=== PATIENT | male | born 1935 | race Caucasian/White ===

== ENCOUNTER 2018-09-23 07:59 | Outpatient (CLI) | payer MEDICARE, SELFPAY ==
[2018-09-23 09:39] LABS: Anion Gap 7.9 mmol/L (3-11); BUN 19 mg/dL (7-18); CO2 27.1 mmol/L (21.0-32.0); CREATININE 0.94 mg/dL (0.70-1.30); Calcium 8.8 mg/dL (8.5-10.1); Chloride 106 mmol/L (98-107); Glucose 96 mg/dL (70-100); Potassium 4.5 mmol/L (3.5-5.1); Sodium 141 mmol/L (136-145); Uric Acid 3.9 mg/dL (3.5-7.2)
[2018-09-26 09:29] LABS: PSA, Screening 0.6 ng/ml (0-6.5)
== END 2018-09-23 08:19 ==
PROVIDERS: PCP Family Medicine; Visit Provider Family Medicine
DX: M10.9 Gout, unspecified (principal); Z12.5 Encounter for screening for malignant neoplasm of prostate; M15.9 Polyosteoarthritis, unspecified
CPT/HCPCS: 36415; 80048; 84153; 84550

== ENCOUNTER 2018-09-28 01:29 | Outpatient (CLI) | payer MEDICARE, SELFPAY ==
--- NOTE | 2018-09-28 | PFT_ITS ---
PULMONARY FUNCTION TEST REPORT Patient - Pino Lanier DATE OF SERVICE September 28, 2018 REQUESTING PROVIDER Geovanni Irwin M.D. INTERPRETATION OF STUDY Spirometry shows no evidence of obstructive airways disease. No bronchodilator response. LUNG VOLUMES - Lung volumes show no evidence of restriction, though somewhat low FVC is due to very low ERV. This may be related to chest wall restriction from obesity or respiratory neuromuscular dysfunction. DIFFUSION CAPACITY- Mildly reduced, which is normal when corrected to alveolar volume. AIRWAY RESISTANCE - Normal. IMPRESSION Mild isolated diffusion defect, this is associated with somewhat low FVC and very low ERV. This may be related to underlying obesity and chest wall restriction, but underlying early developing interstitial lung disease should also be considered in the differential diagnosis. Other consideration is respiratory neuromuscular dysfunction. If respiratory neuromuscular weakness is suspected, proceeding with MVV, MEP and MIP maneuvers are recommended. Clinical correlation therefore recommended. Lucretia Shah M.D. SANDRA/ T- 09/30/2018
[2018-09-28] MEDS: Inhaler, Assist Device 1 EACH MC (08:47)
[2018-09-28] MEDS: Albuterol HFA 18 GM 200 PUFF INH IH (08:47)
== END 2018-09-28 01:49 ==
PROVIDERS: PCP Family Medicine; Visit Provider Family Medicine
DX: R05 Cough (principal); R06.09 Other forms of dyspnea; R06.02 Shortness of breath; R06.2 Wheezing; Z57.2 Occupational exposure to dust
CPT/HCPCS: 94060; 94150; 94726; 94729

== ENCOUNTER 2019-01-12 00:20 | Outpatient (CLI) | payer MEDICARE, SELFPAY ==
--- NOTE | 2019-01-12 12:19 | DI.US_ITS ---
EXAM: US HERNIA CLINICAL HISTORY: QUESTION OF HERNIA M79.89 SOFT TISSUE DISORDER, R52 PAIN TECHNIQUE: Ultrasound performed using standard protocol. COMPARISON: No exams were available for comparison FINDINGS: The left lower quadrant was scanned. No hernia, mass or fluid collection is seen. A normal appearing lymph node is noted in the left groi n region. IMPRESSION: No evidence a hernia.
== END 2019-01-12 00:40 ==
PROVIDERS: PCP Nurse Practitioner; Visit Provider Nurse Practitioner
DX: R10.32 Left lower quadrant pain (principal); R59.0 Localized enlarged lymph nodes; M79.89 Other specified soft tissue disorders
CPT/HCPCS: 76857

== ENCOUNTER 2019-10-12 20:26 | Outpatient (REF) | payer MEDICARE, SELFPAY ==
[2019-10-12 20:53] LABS: Calculated LDL 100 mg/dL (<100); Cholesterol 151 mg/dL (<200); HDL Cholesterol 37 mg/dL (40-60); Triglyceride 70 mg/dL (<150)
== END 2019-10-12 20:46 ==
LOC: LBN 20:26
PROVIDERS: PCP Nurse Practitioner; Visit Provider Nurse Practitioner
DX: E78.5 Hyperlipidemia, unspecified (principal)
CPT/HCPCS: 80061

== ENCOUNTER 2020-07-19 08:54 | Outpatient (CLI) | payer MEDICARE, SELFPAY ==
--- NOTE | 2020-07-19 09:15 | DI.RAD_ITS ---
EXAM: XR FOOT RT COMPLETE CLINICAL HISTORY: ankle foot pain swelling M79.673. TECHNIQUE: 2D digital imaging was performed. COMPARISON: No exams were available for comparison FINDINGS: BONES: No acute fracture is present. No bony destructive lesion is seen. Osteopenia. Small heel spu rs. JOINTS: No dislocation present. Mild degenerative changes intertarsal and tarsal metatarsal joints. SOFT TISSUE: Normal. IMPRESSION: Mild degenerative changes and heel spurs. DATA REPOSITORY: RADIATION DOSE DELIVERED:
--- NOTE | 2020-07-19 09:15 | DI.RAD_ITS ---
EXAM: XR ANKLE RT COMPLETE CLINICAL HISTORY: foot and ankle pain M25.579. TECHNIQUE: 2D digital imaging was performed. COMPARISON: CR LEFT FOOT COMPLETE from 11/12/2015 CR LEFT FOOT COMPLETE from 11/12/2015 FINDINGS: BONES: No acute fracture is present. No bony destructive lesion is seen. Small heel spurs. No fadumo r dome defect is seen. Mild hypertrophic changes at the distal fibular tibial joint. Mild degenerat kelly changes talonavicular and navicular cuneiform joints. JOINTS: The ankle mortise is normally aligned. SOFT TISSUE: Faint vascular calcifications. IMPRESSION: Degenerative changes and small heel spurs.. DATA REPOSITORY: RADIATION DOSE DELIVERED:
== END 2020-07-19 09:14 ==
PROVIDERS: PCP Nurse Practitioner; Visit Provider Nurse Practitioner
DX: M25.571 Pain in right ankle and joints of right foot (principal); M79.671 Pain in right foot; M19.071 Primary osteoarthritis, right ankle and foot; M77.31 Calcaneal spur, right foot
CPT/HCPCS: 73610; 73630

== ENCOUNTER 2020-10-18 03:14 | Outpatient (CLI) | payer MEDICARE, SELFPAY ==
[2020-10-18 09:01] LABS: Calculated LDL 91 mg/dL (<100); Cholesterol 138 mg/dL (<200); HDL Cholesterol 36 mg/dL (40-60); Triglyceride 58 mg/dL (<150)
[2020-10-21 09:21] LABS: PSA, Screening 0.8 ng/mL (0.0-6.5)
== END 2020-10-18 03:15 | disposition home or self-care (01) ==
LOC: LBO 03:14
PROVIDERS: PCP Nurse Practitioner; Visit Provider Nurse Practitioner
DX: E78.5 Hyperlipidemia, unspecified (principal); N40.0 Benign prostatic hyperplasia without lower urinary tract symptoms; Z12.5 Encounter for screening for malignant neoplasm of prostate
CPT/HCPCS: 36415; 80061; 84153

== ENCOUNTER 2021-08-19 15:03 | Outpatient (REF) | payer MEDICARE, SELFPAY ==
[2021-08-21 17:56] LABS: COVID-19 RT-PCR UVMMC Result Negative (Negative)
== END 2021-08-19 15:04 | disposition home or self-care (01) ==
LOC: LBN 15:03
PROVIDERS: PCP Nurse Practitioner; Visit Provider Nurse Practitioner
DX: Z20.822 Contact with and (suspected) exposure to COVID-19 (principal)
CPT/HCPCS: U0003

== ENCOUNTER 2021-08-28 12:40 | Outpatient (REF) | payer MEDICARE, SELFPAY ==
--- NOTE | 2021-08-28 12:00 | TONSIL_PTH ---
PATIENT: Pino Wong LOC: [facility] U#:[id number] AGE/SX: 86/M ROOM: RE08/28/[address]: Orlando Pena MD : 1935 BED: DIS: 08/28/2021 SPEC #: [id number] RECD: 08/28/21 17:04 STATUS: BIANCA MARTINES #: [id number] RUBY: 08/28/21 12:[address]: Orlando Pena DEPT: Surgical Specimen RECD BY: Ashlie Piper ENTERED: 08/28/21 17:04 SP TYPE: TONSIL OTHR DR: Amelia Gomes, PhD ELECTRIC SIGN ASSEMBLER Tissues: 1 - TONSIL BIOPSY Procedures: IMMUNOPEROXIDASE STAIN GROSS AND MICRO LEVEL 3 Comments: [id number]
== END 2021-08-28 12:41 | disposition home or self-care (01) ==
LOC: LBN 12:40
PROVIDERS: PCP Nurse Practitioner; Visit Provider Otolaryngology
DX: C09.9 Malignant neoplasm of tonsil, unspecified (principal)
CPT/HCPCS: 88305; 88304; 88361

== ENCOUNTER 2021-10-27 04:19 | Outpatient (CLI) | payer MEDICARE, SELFPAY ==
[2021-10-27 17:12] LABS: Anion Gap 7.4 mmol/L (3-11); BUN 19 mg/dL (7-18); CO2 26.6 mmol/L (21.0-32.0); CREATININE 1.4 mg/dL (0.70-1.30); Calcium 8.6 mg/dL (8.5-10.1); Calculated LDL 70 mg/dL (<100); Chloride 106 mmol/L (98-107); Cholesterol 148 mg/dL (<200); Estimated GFR 48.28 (mL/min/1.73m2); Glucose 111 mg/dL (74-106); HDL Cholesterol 33 mg/dL (40-60); Potassium 4.1 mmol/L (3.5-5.1); Sodium 140 mmol/L (136-145); Triglyceride 225 mg/dL (<150)
[2021-10-27 17:21] LABS: Uric Acid 3.4 mg/dL (3.5-7.2)
== END 2021-10-27 04:20 | disposition home or self-care (01) ==
LOC: LBO 04:20
PROVIDERS: PCP Nurse Practitioner; Visit Provider Nurse Practitioner
DX: E78.5 Hyperlipidemia, unspecified (principal); M10.9 Gout, unspecified; K90.0 Celiac disease; R06.09 Other forms of dyspnea
CPT/HCPCS: 36415; 80048; 80061; 84550

== ENCOUNTER 2021-12-22 02:28 | Outpatient (RCR) | payer MEDICARE, SELFPAY ==
[2021-12-04] MEDS: Normal Saline Flush 10 ML SYR IVP (12:23)
[2021-12-04 12:33] LABS: Abs Immature Grans 0.02 10^3/uL (0.0-0.06); Absolute Basophil Count 0.05 10^3/uL (0.0-0.2); Absolute Eosinophil Count 0.26 10^3/uL (0.0-0.7); Absolute Lymphocyte Count 1.65 10^3/uL (1.2-3.4); Absolute Monocyte Count 0.72 10^3/uL (0.1-0.8); Absolute Neutrophil Count 4.27 10^3/uL (1.2-6.7); Basophils % 0.7; Eosinophils % 3.7; HCT 43.4 % (40.0-50.0); HGB 14.2 g/dL (13.5-17.5); Immature Grans % 0.3; Lymphocytes % 23.7; MCH 30.9 pg (27.0-33.0); MCHC 32.7 % (32.0-36.0); MCV 94 fL (80-95); MPV 9.2 fL (8.0-11.0); Monocytes % 10.3; Neutrophils % 61.3; Platelet Count 233 10^3/uL (130-400); RDW 13.2 % (11.8-14.1); RDW-SD 46.3 fL; WBC 6.97 10^3/uL (4.4-10.8)
[2021-12-04 12:51] LABS: ALT 20 U/L (16-63); AST 18 U/L (15-37); Albumin 3.2 g/dL (3.4-5.0); Alkaline Phosphatase 59 U/L (46-116); Anion Gap 6.8 mmol/L (3-11); BUN 19 mg/dL (7-18); Bilirubin, Total 1.5 mg/dL (0.2-1.0); CO2 29.2 mmol/L (21.0-32.0); Calcium 8.8 mg/dL (8.5-10.1); Chloride 104 mmol/L (98-107); Estimated GFR 74.21 (mL/min/1.73m2); Glucose 144 mg/dL (74-106); Potassium 4.3 mmol/L (3.5-5.1); Sodium 140 mmol/L (136-145); Total Protein 7.2 g/dL (6.4-8.2)
[2021-12-08] MEDS: Normal Saline Flush 10 ML SYR IVP (14:26)
[2021-12-08] MEDS: Heparin 500 UNITS/5 ML SYRINGE IV (14:27)
[2021-12-08 14:36] LABS: Abs Immature Grans 0.01 10^3/uL (0.0-0.06); Absolute Basophil Count 0.03 10^3/uL (0.0-0.2); Absolute Eosinophil Count 0.35 10^3/uL (0.0-0.7); Absolute Lymphocyte Count 1.86 10^3/uL (1.2-3.4); Absolute Monocyte Count 0.62 10^3/uL (0.1-0.8); Absolute Neutrophil Count 3.04 10^3/uL (1.2-6.7); Basophils % 0.5; Eosinophils % 5.9; HCT 42.8 % (40.0-50.0); Immature Grans % 0.2; Lymphocytes % 31.5; MCH 30.8 pg (27.0-33.0); MCHC 32.7 % (32.0-36.0); MCV 94 fL (80-95); MPV 8.8 fL (8.0-11.0); Monocytes % 10.5; Neutrophils % 51.4; Platelet Count 216 10^3/uL (130-400); RBC 4.55 10^6/uL (4.36-5.78); RDW 13.1 % (11.8-14.1); RDW-SD 45.3 fL; WBC 5.91 10^3/uL (4.4-10.8)
[2021-12-08 15:02] LABS: ALT 15 U/L (16-63); AST 17 U/L (15-37); Albumin 3.4 g/dL (3.4-5.0); Alkaline Phosphatase 65 U/L (46-116); Anion Gap 5.6 mmol/L (3-11); BUN 17 mg/dL (7-18); Bilirubin, Direct 0.2 mg/dL (0.0-0.2); Bilirubin, Total 1.2 mg/dL (0.2-1.0); CO2 30.4 mmol/L (21.0-32.0); CREATININE 0.9 mg/dL (0.70-1.30); Chloride 103 mmol/L (98-107); Estimated GFR 84.22 (mL/min/1.73m2); Glucose 93 mg/dL (74-106); Potassium 4.1 mmol/L (3.5-5.1); Sodium 139 mmol/L (136-145); Total Protein 7.5 g/dL (6.4-8.2)
[2021-12-09 12:25] LABS: Magnesium 2.1 mg/dL (1.8-2.4)
[2021-12-15] MEDS: Heparin 500 UNITS/5 ML SYRINGE IV (13:20)
[2021-12-15] MEDS: Normal Saline Flush 10 ML SYR IVP (13:20)
[2021-12-15 13:26] LABS: Abs Immature Grans 0.02 10^3/uL (0.0-0.06); Absolute Basophil Count 0.02 10^3/uL (0.0-0.2); Absolute Eosinophil Count 0.23 10^3/uL (0.0-0.7); Absolute Lymphocyte Count 1.29 10^3/uL (1.2-3.4); Absolute Monocyte Count 0.64 10^3/uL (0.1-0.8); Absolute Neutrophil Count 4.95 10^3/uL (1.2-6.7); Basophils % 0.3; Eosinophils % 3.2; HGB 13.8 g/dL (13.5-17.5); Immature Grans % 0.3; MCH 31.2 pg (27.0-33.0); MCHC 32.9 % (32.0-36.0); MCV 95 fL (80-95); MPV 9.2 fL (8.0-11.0); Neutrophils % 69.2; Platelet Count 202 10^3/uL (130-400); RBC 4.43 10^6/uL (4.36-5.78); RDW-SD 45.4 fL; WBC 7.15 10^3/uL (4.4-10.8)
[2021-12-15 13:55] LABS: ALT 26 U/L (16-63); AST 16 U/L (15-37); Albumin 3.1 g/dL (3.4-5.0); Alkaline Phosphatase 67 U/L (46-116); Anion Gap 6.3 mmol/L (3-11); BUN 18 mg/dL (7-18); Bilirubin, Total 0.9 mg/dL (0.2-1.0); CO2 29.7 mmol/L (21.0-32.0); Calcium 8.5 mg/dL (8.5-10.1); Chloride 101 mmol/L (98-107); Estimated GFR 74.21 (mL/min/1.73m2); Glucose 175 mg/dL (74-106); Magnesium 1.8 mg/dL (1.8-2.4); Potassium 3.9 mmol/L (3.5-5.1); Sodium 137 mmol/L (136-145)
[2021-12-22] MEDS: Heparin 500 UNITS/5 ML SYRINGE IV (08:29)
[2021-12-22] MEDS: Normal Saline Flush 10 ML SYR IVP (08:29)
[2021-12-22 08:59] LABS: Abs Immature Grans 0.03 10^3/uL (0.0-0.06); Absolute Basophil Count 0.01 10^3/uL (0.0-0.2); Absolute Eosinophil Count 0.17 10^3/uL (0.0-0.7); Absolute Monocyte Count 0.67 10^3/uL (0.1-0.8); Basophils % 0.1; Eosinophils % 2.2; HCT 42.8 % (40.0-50.0); HGB 14.2 g/dL (13.5-17.5); Immature Grans % 0.4; Lymphocytes % 10.3; MCH 31.3 pg (27.0-33.0); MCHC 33.2 % (32.0-36.0); MCV 94 fL (80-95); MPV 8.9 fL (8.0-11.0); Monocytes % 8.6; Neutrophils % 78.4; Platelet Count 230 10^3/uL (130-400); RBC 4.54 10^6/uL (4.36-5.78); RDW 13.1 % (11.8-14.1); RDW-SD 44.9 fL; WBC 7.78 10^3/uL (4.4-10.8)
[2021-12-22 09:36] LABS: ALT 21 U/L (16-63); AST 13 U/L (15-37); Alkaline Phosphatase 62 U/L (46-116); Anion Gap 6.8 mmol/L (3-11); BUN 20 mg/dL (7-18); Bilirubin, Total 0.9 mg/dL (0.2-1.0); CO2 29.2 mmol/L (21.0-32.0); Chloride 100 mmol/L (98-107); Estimated GFR 74.21 (mL/min/1.73m2); Glucose 122 mg/dL (74-106); Magnesium 1.9 mg/dL (1.8-2.4); Potassium 4.4 mmol/L (3.5-5.1); Sodium 136 mmol/L (136-145); Total Protein 7.1 g/dL (6.4-8.2)
== END 2021-12-26 23:59 | disposition home or self-care (01) ==
LOC: INF 02:28
PROVIDERS: Internal Medicine Hematology & Oncology; Preventive Medicine Undersea and Hyperbaric Medicine; PCP Nurse Practitioner; Visit Provider Internal Medicine Hematology & Oncology
DX: C09.9 Malignant neoplasm of tonsil, unspecified (principal); Z45.2 Encounter for adjustment and management of vascular access device
CPT/HCPCS: 36591; 80053; 82248; 83735; 85025

== ENCOUNTER 2022-01-19 02:23 | Outpatient (RCR) | payer MEDICARE, SELFPAY ==
[2021-12-29] MEDS: Normal Saline Flush 10 ML SYR IVP (12:51)
[2021-12-29] MEDS: Heparin 500 UNITS/5 ML SYRINGE IV (12:51)
[2021-12-29 13:00] LABS: Abs Immature Grans 0.01 10^3/uL (0.0-0.06); Absolute Basophil Count 0.01 10^3/uL (0.0-0.2); Absolute Eosinophil Count 0.07 10^3/uL (0.0-0.7); Absolute Lymphocyte Count 0.66 10^3/uL (1.2-3.4); Absolute Monocyte Count 0.57 10^3/uL (0.1-0.8); Absolute Neutrophil Count 4.75 10^3/uL (1.2-6.7); Basophils % 0.2; Eosinophils % 1.2; HCT 40.4 % (40.0-50.0); HGB 13.3 g/dL (13.5-17.5); Immature Grans % 0.2; Lymphocytes % 10.9; MCH 30.9 pg (27.0-33.0); MCHC 32.9 % (32.0-36.0); MCV 94 fL (80-95); MPV 8.7 fL (8.0-11.0); Monocytes % 9.4; Neutrophils % 78.1; Platelet Count 195 10^3/uL (130-400); RDW 13.2 % (11.8-14.1); RDW-SD 44.6 fL; WBC 6.07 10^3/uL (4.4-10.8)
[2021-12-29 13:15] LABS: ALT 23 U/L (16-63); AST 15 U/L (15-37); Albumin 3.1 g/dL (3.4-5.0); Alkaline Phosphatase 59 U/L (46-116); Anion Gap 5.3 mmol/L (3-11); BUN 26 mg/dL (7-18); Bilirubin, Total 0.8 mg/dL (0.2-1.0); CO2 30.7 mmol/L (21.0-32.0); CREATININE 1.1 mg/dL (0.70-1.30); Calcium 8.9 mg/dL (8.5-10.1); Chloride 98 mmol/L (98-107); Estimated GFR 66.19 (mL/min/1.73m2); Glucose 158 mg/dL (74-106); Magnesium 2.1 mg/dL (1.8-2.4); Potassium 4.5 mmol/L (3.5-5.1); Sodium 134 mmol/L (136-145)
[2022-01-05 09:30] LABS: Abs Immature Grans 0.01 10^3/uL (0.0-0.06); Absolute Basophil Count 0.01 10^3/uL (0.0-0.2); Absolute Eosinophil Count 0.04 10^3/uL (0.0-0.7); Absolute Monocyte Count 0.46 10^3/uL (0.1-0.8); Absolute Neutrophil Count 2.88 10^3/uL (1.2-6.7); Basophils % 0.3; Eosinophils % 1.1; HCT 37.6 % (40.0-50.0); HGB 12.8 g/dL (13.5-17.5); Immature Grans % 0.3; Lymphocytes % 10.5; MCH 31.7 pg (27.0-33.0); MCV 93 fL (80-95); MPV 8.9 fL (8.0-11.0); Monocytes % 12.1; Neutrophils % 75.7; Platelet Count 145 10^3/uL (130-400); RBC 4.04 10^6/uL (4.36-5.78); RDW 13.2 % (11.8-14.1); RDW-SD 44.5 fL
[2022-01-05] MEDS: Normal Saline Flush 10 ML SYR IVP (09:30)
[2022-01-05] MEDS: Heparin 500 UNITS/5 ML SYRINGE IV (09:31)
[2022-01-05 09:44] LABS: ALT 29 U/L (16-63); AST 22 U/L (15-37); Alkaline Phosphatase 59 U/L (46-116); Anion Gap 7.2 mmol/L (3-11); BUN 18 mg/dL (7-18); Bilirubin, Total 0.7 mg/dL (0.2-1.0); CO2 29.8 mmol/L (21.0-32.0); CREATININE 0.9 mg/dL (0.70-1.30); Calcium 8.8 mg/dL (8.5-10.1); Chloride 98 mmol/L (98-107); Estimated GFR 84.22 (mL/min/1.73m2); Glucose 118 mg/dL (74-106); Magnesium 1.8 mg/dL (1.8-2.4); Potassium 4.2 mmol/L (3.5-5.1); Sodium 135 mmol/L (136-145)
[2022-01-12] MEDS: Heparin 500 UNITS/5 ML SYRINGE IV (08:45)
[2022-01-12] MEDS: Normal Saline Flush 10 ML SYR IVP (08:45)
[2022-01-12 08:50] LABS: Abs Immature Grans 0.01 10^3/uL (0.0-0.06); Absolute Basophil Count 0.01 10^3/uL (0.0-0.2); Absolute Eosinophil Count 0.02 10^3/uL (0.0-0.7); Absolute Lymphocyte Count 0.26 10^3/uL (1.2-3.4); Absolute Monocyte Count 0.31 10^3/uL (0.1-0.8); Absolute Neutrophil Count 1.56 10^3/uL (1.2-6.7); Basophils % 0.5; Eosinophils % 0.9; HCT 35.2 % (40.0-50.0); HGB 11.9 g/dL (13.5-17.5); Immature Grans % 0.5; MCH 31.3 pg (27.0-33.0); MCHC 33.8 % (32.0-36.0); MCV 93 fL (80-95); MPV 9.2 fL (8.0-11.0); Monocytes % 14.3; Neutrophils % 71.8; Platelet Count 114 10^3/uL (130-400); RDW 13.6 % (11.8-14.1); RDW-SD 44.1 fL; WBC 2.17 10^3/uL (4.4-10.8)
[2022-01-12 09:04] LABS: ALT 31 U/L (16-63); AST 20 U/L (15-37); Alkaline Phosphatase 56 U/L (46-116); Anion Gap 4.7 mmol/L (3-11); BUN 21 mg/dL (7-18); Bilirubin, Total 0.7 mg/dL (0.2-1.0); CO2 30.3 mmol/L (21.0-32.0); Calcium 8.8 mg/dL (8.5-10.1); Chloride 100 mmol/L (98-107); Estimated GFR 74.21 (mL/min/1.73m2); Glucose 131 mg/dL (74-106); Potassium 4.4 mmol/L (3.5-5.1); Sodium 135 mmol/L (136-145); Total Protein 6.9 g/dL (6.4-8.2)
[2022-01-13 09:54] LABS: Magnesium 1.8 mg/dL (1.8-2.4)
[2022-01-19] MEDS: Normal Saline Flush 10 ML SYR IVP (12:15)
[2022-01-19] MEDS: Heparin 500 UNITS/5 ML SYRINGE IV (12:15)
[2022-01-19 12:18] LABS: Absolute Basophil Count 0.01 10^3/uL (0.0-0.2); Absolute Eosinophil Count 0.02 10^3/uL (0.0-0.7); Absolute Lymphocyte Count 0.02 10^3/uL (1.2-3.4); Absolute Monocyte Count 0.65 10^3/uL (0.1-0.8); Absolute Neutrophil Count 1.26 10^3/uL (1.2-6.7); Basophils % 0.5; HCT 32.8 % (40.0-50.0); HGB 11.1 g/dL (13.5-17.5); MCH 31.6 pg (27.0-33.0); MCHC 33.8 % (32.0-36.0); MCV 93 fL (80-95); MPV 9.2 fL (8.0-11.0); Monocytes % 33.2; Neutrophils % 64.3; Platelet Count 129 10^3/uL (130-400); RBC 3.51 10^6/uL (4.36-5.78); RDW 14.2 % (11.8-14.1); RDW-SD 45.4 fL
[2022-01-19 12:29] LABS: WBC 1.96 10^3/uL (4.4-10.8)
[2022-01-19 12:34] LABS: Diff Comment Diff Reviewed; RBC Morphology Normal
[2022-01-19 12:36] LABS: ALT 28 U/L (16-63); AST 21 U/L (15-37); Albumin 2.9 g/dL (3.4-5.0); Alkaline Phosphatase 55 U/L (46-116); Anion Gap 4.8 mmol/L (3-11); BUN 23 mg/dL (7-18); Bilirubin, Total 0.7 mg/dL (0.2-1.0); CO2 29.2 mmol/L (21.0-32.0); Calcium 8.7 mg/dL (8.5-10.1); Chloride 100 mmol/L (98-107); Estimated GFR 74.21 (mL/min/1.73m2); Glucose 118 mg/dL (74-106); Magnesium 1.8 mg/dL (1.8-2.4); Potassium 4.1 mmol/L (3.5-5.1); Sodium 134 mmol/L (136-145); Total Protein 6.6 g/dL (6.4-8.2)
== END 2022-01-26 23:59 | disposition home or self-care (01) ==
LOC: INF 02:23
PROVIDERS: Internal Medicine Hematology & Oncology; Preventive Medicine Undersea and Hyperbaric Medicine; PCP Nurse Practitioner; Visit Provider Internal Medicine Hematology & Oncology
DX: C09.9 Malignant neoplasm of tonsil, unspecified (principal); Z45.2 Encounter for adjustment and management of vascular access device
CPT/HCPCS: 36591; 80053; 83735; 85025

== ENCOUNTER 2022-01-24 03:22 | Inpatient (IN) | payer MEDICARE, SELFPAY ==
[2022-01-24] VITALS (122 sets, daily range): BP systolic 127–183; BP diastolic 70–114; PULSE 83–146; RESP 0–60; TEMP 36.4–39; O2SAT 94–100
--- NOTE | 2022-01-24 03:45 | DI.CT_ITS ---
Exam(s) CT HEAD WO EXAM: CT HEAD WO CLINICAL HISTORY: altered mentation. TECHNIQUE: Imaging Protocol: Axial computed tomography images with coronal and sagittal reformatted images were created and reviewed COMPARISON: None. FINDINGS: The examination is limited due to patient motion artifact. Ventricles and Extra axial spaces: Normal in size and morphology for the patient's age. Hemorrhage: None. Cerebral parenchyma: No acute territorial infarct is identified. There are areas of decreased attenu ation in the white matter consistent with small vessel ischemic disease. Midline shift: None. Brainstem/Cerebellum: Normal. Calvarium: Normal. Visualized Paranasal sinuses/Mastoids: Clear. Soft Tissues: Unremarkable. IMPRESSION: No acute intracranial process. RADIATION DOSE DELIVERED: 878.43mGy.cm Total DLP DATA REPOSITORY: All CT scans at this facility are submitted to the National Radiology Data Registry (NRDR) Dose Index Registry (DIR) with the [employer] (ACR). RADIATION OPTIMIZATION: All CT scans at this facility use at least one of these dose optimization te chniques: automated exposure control; mA and/or kV adjustment per patient size (includes targeted exa ms where dose is matched to clinical indication); or iterative reconstruction.
--- OUTSIDE RECORDS SUMMARY | 2022-01-24 03:56 | XMS_ITS | Encounter Summary ---
:1935 Author Organization [facility] [place] [address] Care Team Providers Name Role Phone Mateocalvin Ameliamat Branch APRN Primary Care Provider [phone] Encounter Details Date Type Department Care Team Description 01/13/2022 Orders Only [facility]il [facility] Osorio alanis [place] [address] ONCOLOGY [phone] [place], [place] [address] (Wo rk) Social History Tobacco Use Types Packs/Day Years Used Date Never Smoker Smokeless Tobacco: Never Used Alcohol Use Standard Drinks/Week Comments Not Currently 0 (1 standard drink = 0.6 oz pure alcoho l) Financial Resource Strain Answer Date Recorded How hard is it for you to pay for the very basics like Not h giovana at all 10/30/2021 food, housing, medical care, and heating? Food Insecurity Answer Date Recorded Within the past 12 months, you worried that your food would Never true 10/30/2021 run out before you got money to buy more. Within the past 12 months, the food you bought just didn't N ever true 10/30/2021 last and you didn't have money to get more. Transportation Needs Answer Date Recorded In the past 12 months, has lack of transportation kept you f rom No 10/30/2021 medical appointments or from getting medications? In the past 12 months, has lack of transportation kept you f rom No 10/30/2021 meetings, work, or getting things needed for daily living? Housing Stability Answer Date Recorded In the last 12 months, was there a time when you were not ab le No 10/30/2021 to pay the mortgage or rent on time? In the last 12 months, how many places have you lived? 1 10/30/2021 In the last 12 months, was there a time when you did not hav e a No 10/30/[address] or slept in a long-term (including now)? Sex Assigned at Date Recorded Not on file documented as of this encounter Plan of Treatment Upcoming Encounters Date Type Specialty Care Team Description 01/26/2022 Infusion Hematology and Oncology 01/26/2022 Office Visit Hematology and Oncology Mirta Sy MD [facility] ONCOLOGY DEPT. [place], [place] [address] (Wo rk) 01/28/2022 Office Visit Radiation Oncology Chilango Michel MD [facility] RADIATION ONCOLO GY [place], [place] [address] (Wo rk) 01/29/2022 Infusion Hematology and Oncology 02/05/2022 Infusion Hematology and Oncology Scheduled Orders Name Type Priority Associated Diagnoses Order S chedule Magnesium Lab STAT Tonsil cancer Expected: 12/27 (Approximate), Expires: 2022 Magnesium Lab Routine Tonsil cancer Expected: 12/28, Expires: 01/13/2023 documented as of this encounter Visit Diagnoses Diagnosis Tonsil cancer Malignant neoplasm of tonsil documented in this encounter Care Teams Dry Kiln Loader Relationship Specialty Start Date End Date Amelia Gomes APRN PCP - General Family Medicine 10/17/[address] [place] [address] documented as of this encounter
--- OUTSIDE RECORDS SUMMARY | 2022-01-24 03:56 | XMS_ITS | Encounter Summary ---
:1935 Author Organization [facility] [place] [address] Care Team Providers Name Role Phone Amelia Gomes APRN Primary Care Provider [phone] Encounter Details Date Type Department Care Team Description 01/14/2022 [facility] Tonsil cancer [address] ONCOLOGY DEPT. [place], [place] [phone] Social History Tobacco Use Types Packs/Day Years [...] place to sleep or slept in a mcc (including now)? Sex Assigned at Date Recorded Not on file documented as of this encounter Plan of Treatment Upcoming Encounters Date Type Specialty Care Team Description 01/26/2022 Infusion Hematology and Oncology 01/26/2022 Office Visit Hematology and Oncology Mirta Sy MD [facility] ONCOLOGY DEPT. [place], [place] [address] (Wo rk) 01/28/2022 Office Visit Radiation Oncology Chilango Michel MD [facility] RADIATION ONCOLO [place], [place] [address] (Wo rk) 01/29/2022 Infusion Hematology and Oncology 02/05/2022 Infusion Hematology and Oncology documented as of this encounter Visit Diagnoses Diagnosis Tonsil cancer Malignant neoplasm of tonsil documented in this encounter Care Teams Dry Wall Finisher Relationship Specialty Start Date End Date Amelia Gomes APRN PCP - General Family Medicine 10/17/20 [facility] [address] [place] [address] documented as of this encounter
--- OUTSIDE RECORDS SUMMARY | 2022-01-24 03:56 | XMS_ITS | Encounter Summary ---
:1935 Author Organization [facility] [place] [address] Care Team Providers Name Role Phone MateoZaid simpsonAmeliamat Branch APRN Primary Care Provider [phone] Encounter Details Date Type Department Care Team Description 01/20/2022 Travel Social History Tobacco Use Types Packs/Day Years [...] place to sleep or slept in a intermediate (including now)? Sex Assigned at Date Recorded Not on file documented as of this encounter Plan of Treatment Upcoming Encounters Date Type Specialty Care Team Description 01/26/2022 Infusion Hematology and Oncology 01/26/2022 Office Visit Hematology and Oncology Mirta Sy MD [facility] DR ONCOLOGY DEPT. [place], [place] [address] (Wo rk) 01/28/2022 Office Visit Radiation Oncology Chilango Michel MD [facility] RADIATION ONCOLO [place], [place] [address] (Wo rk) 01/29/2022 Infusion Hematology and Oncology 02/05/2022 Infusion Hematology and Oncology documented as of this encounter Visit Diagnoses Not on filedocumented in this encounter Care Teams Asphalt Raker Relationship Specialty Start Date End Date Amelia Gomes APRN PCP - General Family Medicine 10/17/[address] [place] [address] documented as of this encounter
--- OUTSIDE RECORDS SUMMARY | 2022-01-24 03:56 | XMS_ITS | Encounter Summary ---
:1935 Author Organization [facility] [place] [address] Care Team Providers Name Role Phone MateoZaid simpsonAmeliamat Branch APRN Primary Care Provider [phone] Reason for Visit Reason Comments IV Medication Hydration Treatment/Therapy Plan Authorization (Routine) - Authorized Specialty Diagnoses / Procedures Referred By Contact Refer red To Contact Hematology and Oncology Diagnoses Tonsil cancer History of kidney stones Gilbert's syndrome Kale Sy MD [facility] Hem Onc Infusion Procedures , [facility] [address] [facility] [place], [place] ONCOLOGY DEPT. [phone] [place] [address] Referral ID Status Reason Start Date Expiration Date Visits V isits Requested Authorized [id number] Authorized 12/08/2021 02/25/2022 99 99 Encounter Details Date Type Department Care Team Description 01/15/2022 Infusion Hematology Oncology at [facility] lbert's syndrome; [facility] Tonsil cancer; [address] [place] [address] History of kidney stones [place], [place] [phone] Social History Tobacco Use Types Packs/Day Years [...] place to sleep or slept in a ch[facility] (including now)? Sex Assigned at Date Recorded Not on file documented as of this encounter Last Filed Vital Signs Vital Sign Reading Time Taken Comments Blood Pressure 152/75 01/15/2022 8:35 AM EDT Pulse 86 01/15/2022 8:35 AM EDT Temperature 36.4 ??C (97.5 ??F) 01/15/2022 8:35 AM EDT Respiratory Rate 20 01/15/2022 8:35 AM EDT Oxygen Saturation 98% 01/15/2022 8:35 AM EDT Inhaled Oxygen Concentration - - Weight 84 kg (185 lb 3.2 oz) 01/15/2022 8:35 AM EDT Height - - Body Mass Index 27.34 01/13/2022 8:31 AM EDT documented in this encounter Progress Notes Sepideh Nelson RN - 01/15/2022 8:30 AM EDT INFUSION THERAPY ADMINISTRATION NOTES DIAGNOSIS: H/N CA REASON FOR VISIT: Hydration SUBJECTIVE Pino offers no complaints. OBJECTIVE LAB DATA: N/A REACTIONS (DESCRIPTION, TIME, INTERVENTION AND EFFECTIVENESS)none ASSESSMENT Pino was awake, alert and he tolerated treatment well. Pt's port checked for good blood return and patency before use. Port Flushed with 20 ML NS and 500 units Heparin then deaccessed PLAN Return to clinic per routine. documented in this encounter Plan of Treatment Upcoming Encounters Date Type Specialty Care Team Description 01/26/2022 Infusion Hematology and Oncology 01/26/2022 Office Visit Hematology and Oncology Mirta Sy MD [facility] DR ONCOLOGY DEPT. 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 History of kidney stones Personal history of urinary calculi documented in this encounter Administered Medications Inactive Administered Medications - up to 3 most recent administrations Medication Order MAR Action Action Date Dose Rate Site ondansetron (pf) (Zofran) (2 mg/mL) Given 01/15/2022 8:56 AM EDT 8 mg injection 8 mg 8 mg, Intravenous, ONCE, 1 dose, On Mickie 01/15/22 at 0900 sodium chloride 0.9% infusion New Bag 01/15/2022 8:52 AM EDT 1,000 mLs 500 mL/hr 1,000 mL (1 L), at 500 mL/hr, Intravenous, ONCE, 1 dose, On Mickie 01/15/22 at 0900, Administer over 2 hours documented in this encounter Care Teams Pharmacist Intern Relationship Specialty Start Date End Date Amelia Gomes APRN PCP - General Family Medicine 10/17/[address] [place] [address] [address] [place] [address] documented as of this encounter
--- OUTSIDE RECORDS SUMMARY | 2022-01-24 03:56 | XMS_ITS | Encounter Summary ---
:1935 Author Organization [place] [address] Care Team Providers Name Role Phone Amelia Gomes APRN Primary Care Provider [phone] Encounter Details Date Type Department Care Team Description 01/19/2022 Office Visit Hematology/Oncology Kale Sy, Reina otherapy- induced nausea; at [facility] Tonsil cancer [address] [place] [phone] ONCOLOGY DEPT. [phone] [place], [place] [address] Social History Tobacco Use Types Packs/Day Years [...] place to sleep or slept in a fdc (including now)? Sex Assigned at Date Recorded Not on file documented as of this encounter Last Filed Vital Signs Vital Sign Reading Time Taken Comments Blood Pressure 97/56 01/19/2022 12:50 PM EDT Pulse 109 01/19/2022 12:50 PM EDT Temperature 36.5 ??C (97.7 ??F) 01/19/2022 12:00 PM EDT Respiratory Rate 20 01/19/2022 12:00 PM EDT Oxygen Saturation 98% 01/19/2022 12:00 PM EDT Inhaled Oxygen Concentration - - Weight 83.5 kg (184 lb) 01/19/2022 12:00 PM EDT Height 175.3 cm (5' 9.02) 01/19/2022 12:00 PM EDT Body Mass Index 27.16 01/19/2022 12:00 PM EDT documented in this encounter Progress Notes Kale Sy MD - 01/19/2022 1:00 PM EDT Images from the original note were not included. Hematology/Oncology Clinic [facility] Patient Active Problem List Diagnosis ??? 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 Enrolled on NRG HN-[id number], arm 4: weekly cisplatin with concurrent radiation 70 Gy instituted 12/09/2021 ??? Dysphagia ??? Gilbert's syndrome ??? History of kidney stones Multiple urate stones Chronic allopurinol ??? S/P TKR (total knee replacement), bilateral ??? Hypercholesterolemia ??? Actinic keratosis ??? Filiform wart ??? AK (actinic keratosis) ??? SK (seborrheic keratosis) ??? History of nonmelanoma skin cancer [facility]- [facility]. He is due for his final dose of concurrent chemotherapy tomorrow; final dose of radiation on 01/22. He has had a tough week. His pharyngeal pain has been increasing, just controllable with frequent doses of oxycodone. He meters these out depending on the time of day, 5 or 7.5 mg during the day, 10 mgat bedtime. He had trouble with some ing on higher doses, but this is improved with more con servative oxycodone use. We tried fentanyl transdermal few weeks ago but this was associated with significant unsteadiness on his feet, which resolved when the patch was discontinued. He is G-tube dependent, with very little liquid taken in by mouth. He has been rinsing his mouth with a spray bottle and tap water. He finds this better than the baking soda and salt solution, and as before dislikes the lidocaine mixture. Is grade 1 peripheral neuropathy has been stable. He denies increased tinnitus or hearing trouble. He is quite tired, KPS 80. He has noted more persistent nausea in the past week. He has been using ondansetron 8 mg regularly every 8 hours, and he and his wonder if he could take a higher dose or take it more frequently. He has a hypersensitive gag reflex, but on close questioning it does appear that the nausea is truly sy stemic nausea and not gagging-related. Bowels remain sluggish but he moves every other day or so with the help of MiraLAX. He has been using nystatin swish and swallow for candidiasis; he has trouble swishing this around the mouth and moves it about with the help of a toothbrush. Physical exam: He looks tired, but in no acute distress. Voice is well phonated and articulated Oral exam shows grade 3 mucositis with a sharp delineation across the soft palate. The right tonsil tumor is no longer visible I see no signs of persistent candidiasis. Neck has no palpable adenopathy. Skin in the radiation field shows diffuse grade 2 erythema. No desquamation. The lungs are clear Mediport is benign Cardiac exam is normal Abdomen is benign, no hepatosplenomegaly or masses. The G-tube site is clean Extremities are normal, no clubbing or cyanosis. No edema. Neurologic exam shows no focal deficits. Full sensory exam not repeated today. Cranial nerves normal. Labs: White count 1.96 with ANC 1260. Hemoglobin 11.1. Calcium 8.7, magnesium 1.8; hepatic enzymes normal. Bilirubin normal. Albumin 2.9. BUN 23, creatinine 1.0. 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 His toxicity is within the bounds of expected side effects. He has grade 2 peripheral neuropathy but this has not increased since we reduce the dose of cisplatin. His persistent nausea is more problematic. This is likely combination of chemotherapy effect, possibly brainstem radiation effect, possibly from the high level of narcotics. His elevated BUN suggests that dehydration may be playing a role as well. His ANC is low at 1260, which I believe is grade 2; chemotherapy is to be held for ANC less than 1200. Plan: 1. Proceed with tomorrow's dose of cisplatin, 30 mg per meter squared as before. 2. Continue full supportive care; I think he would benefit from daily visit for hydration and antiemetics. I have updated his therapy plan to include a liter of normal saline, 8 mg of IV ondansetron, and 5 mg of IV dexamethasone. 3. New prescription for ondansetron ODT 8 mg; may repeat every 6 hours PRN. 4. If nausea remains despite the above, we could add olanzapine although I would be hesitant due to the risk of sedation. 5. Continue nystatin through the end of treatment. Kale Sy MD, FACP narrow fabrics weaver Hematology/Oncology Section [facility]/[address] [address] Voice recognition software used for this note; please excuse head filter tank tender helper errors. I personally reviewed past medical, surgical, family medical histories, reviewed current medications, vital signs, labs, and performed full review of systems. These are documented below the narrative for clarity and succinctness. Outpatient Medications Marked as Taking for the 01/19/22 encounter (Office Visit) with Jamal Sy MD Medication Sig Dispense Refill ??? oxyCODONE (Roxicodone) 5 mg/5 mL Solution Take 7.5 mLs by mouth every 4 hours as needed for Pain. May increase to 10 mg every 4 hours if necessary. 500 mL 0 ??? nystatin (Mycostatin) 100,000 unit/mL Suspension Take 5 mLs by mouth 4 times daily. Swish in mouth for as long as possible. Swallow if tolerable. 473 mL 0 ??? ondansetron ODT (Zofran-ODT) 8 mg Tablet, Rapid Dissolve Take 1 tablet by mouth every 8 hours asneeded for Nausea. Dissolve in mouth or dissolve in water and instill through G-tube 20 tablet 0 ??? polyethylene glycoL (Miralax) 17 gram/dose Powder Take 17 g by mouth daily. ??? emollient combination no.111 (REMEDY PHYTOPLEX MOISTURIZER TOP) Apply topically. Apply to area of radiation twice a day but no less than 2 hours before a treatment. Review of Systems: Review of systems is negative for other CHANNEL MARKETING SPECIALIST, bone, pulmonary, cardiac, GI, , extremity, neurologic, endocrine, skin, constitutional, emotional, or functional problems. Vitals Flowsheet Row Office Visit from 01/19/2022 in Hematology/Oncology at [facility] Weight 83.5 kg (184 lb) Height 175.3 cm (5' 9.02) BSA (Calculated - sq m) 2.02 sq meters BMI (Calculated) 27.16 Temp 36.5 ??C (97.7 ??F) Heart Rate 109 Resp 20 BP 97/56 Patient Position Standing SpO2 98 % Karnofsky Score 70 Body surface area is 2.02 meters squared. Wt Readings from Last 3 Encounters: 01/19/22 83.5 kg (184 lb) 01/16/22 84 kg (185 lb 3 oz) 01/15/22 84 kg (185 lb 3.2 oz) No results found for this or any previous visit (from the past 72 hour(s)). ++++++++++++++++++++++++++++++++++++++++++++++++++++ documented in this encounter Plan of Treatment Upcoming Encounters Date Type Specialty Care Team Description 01/26/2022 Infusion Hematology and Oncology 01/26/2022 Office Visit Hematology and Oncology Mirta Sy MD [facility] ONCOLOGY DEPT. [place], [place] [address] (Wo rk) 01/28/2022 Office Visit Radiation Oncology Chilango Michel MD [facility] RADIATION ONCOLO GY [place], [place] [address] (Wo rk) 01/29/2022 Infusion Hematology and Oncology 02/05/2022 Infusion Hematology and Oncology documented as of this encounter Visit Diagnoses Diagnosis Chemotherapy-induced nausea Nausea alone Tonsil cancer Malignant neoplasm of tonsil documented in this encounter Care Teams Remarketing Rep Relationship Specialty Start Date End Date Amelia Gomes APRN PCP - General Family Medicine 10/17/20 [address] [facility] [place] [address] documented as of this encounter
--- OUTSIDE RECORDS SUMMARY | 2022-01-24 03:56 | XMS_ITS | Encounter Summary ---
:1935 Author Organization [facility] [place] [address] Care Team Providers Name Role Phone Amelia Gomes APRN Primary Care Provider [phone] Encounter Details Date Type Department Care Team Description 01/15/2022 Notes [facility] OFFICE OF CARE [address] [place] [address] MANAGEMENT [place], [place] [phone] Social History Tobacco Use Types Packs/Day Years [...] place to sleep or slept in a senior living (including now)? Sex Assigned at Date Recorded Not on file documented as of this encounter Progress Notes Lizette Benson MSW - 01/15/2022 9:46 AM EDT Follow up with Pino during his infusion visit. He indicated he has one more week of RT treatments. He was warned it would get challenging. He is managing day to day at home. He feels his is holding up okay. They would have been in [place] by now as they have wintered there the last 10 years. Friends from their park call regularly and check in. He hopes to get down to [place] at some point this winter. Offered support. Pino did not identify any new needs today. Reminded him of ASSOCIATE DEAN availability. Will continue to follow as indicated. Brief assessment Supportive Counseling documented in this encounter Plan of Treatment Upcoming Encounters Date Type Specialty Care Team Description 01/26/2022 Infusion Hematology and Oncology 01/26/2022 Office Visit Hematology and Oncology Mirta Sy MD [facility] ONCOLOGY DEPT. [place], [place] [address] (Wo rk) 01/28/2022 Office Visit Radiation Oncology Chilango Michel MD [facility] RADIATION ONCOLO [place], [place] [address] (Wo rk) 01/29/2022 Infusion Hematology and Oncology 02/05/2022 Infusion Hematology and Oncology documented as of this encounter Visit Diagnoses Not on filedocumented in this encounter Care Teams Manager Business Relationship Specialty Start Date End Date Amelia Gomes APRN PCP - General Family Medicine 10/17/[address] [place] [address] documented as of this encounter
--- OUTSIDE RECORDS SUMMARY | 2022-01-24 03:56 | XMS_ITS | Encounter Summary ---
:1935 Author Organization [facility] [place] [address] Care Team Providers Name Role Phone MateoHayde simpsonleonarda Branch APRN Primary Care Provider [phone] Encounter Details Date Type Department Care Team Description 01/21/2022 [facility] [address] [phone] Social History Tobacco Use Types [...] place to sleep or slept in a snf (including now)? 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 Randomized to weekly low dose cisplatin SUBJECTIVE Pino Wong presented to hem-onc clinic for hydration STUDY ASSESSMENTS COMPLETED Patient assessed concurrently with Dr Sy: Patient states he's not feeling so good. Increased nausea with some vomiting. He is not eating anything be mouth now. Only sips of water Pain is managed by oxycone 10 mg liquid every 4 hours in G-tube. No longer using fentayl patch whichmade him too loopy.. He c/o dryness in mouth . He had stopped the saltwater baking soda rinses and tried it once and feltit didn't help. He tried the canola oil remedy advised by Dr Sy and said it just made his mouth oily. Instead he is using the spray bottle to spray water in his mouth often . This is helpful. The bought a humidifier. He states this is helpful. He continues to stay away from the BMX because the taste gags him and he didn feel it helped. Dr Sy assessed oral cavity and states thrush infection is improving and instructed him to continuing using this medicaiton . He reports some thick secretions, but denies having difficulty in expectoration or spitting it out. He reports constipation is controlled with Miralax via feeding tube. is helping him with this. He is having BM about QOD. He reports gums are bleeding when he brushes. He still using a soft manual tooth brush when he brushes. He said the tender gums also are painful times. He denies coughing up blood. He is spitting bloodfrom his gums. He is reporting some mild itchiness of skin to neck relieved by the cream we supply. He has some redness ,with mild dry desquamation relieved by the Phytoplex moisturizing cream we provide. Denying pain. He was given 2 more tubes. He will see Dr Michel in 2 more days.. States he has numbness in right hand . This goes away when he moves it . He denies left hand dumbness. This in the same He states he has some chronic bilateral numbness in his feet, this is unchanged from last week.. He was able to walk short distance in exam for weight. room. Able to stand for orthostatic BPs. He also saw Gris our Mission Planner today. PREVIOUS CYCLE SUPPLIES & MEDICATION COLLECTED ??? n/a MEDICATION DISPENSED n/a SUPPLIES DISPENSED ??? n/a Unsolicited AE/SIDE EFFECT MONITORING # AE Grade (CTCAE v. ) Start date Stop Date Study Related Intervention/Outcome 1 dysgeusia 1 2 2 2 2 12/15/21 12/25/21 01/05/22 01/12/22 01/19/22 Is affecting his appetite. Swallowing only water. Now( 01/12/22) 2 constipation 1 1 1 1 12/14/21 01/05/22 01/12/22 01/19/22 Intermittent Relieved by miralax 3 Increased oral mucous, secretions 1 1 1 1 1 12/15/21 12/22/21 01/05/22 01/12/22 01/19/22 He states this is same, not worse 4 Platelets low 1 1 01/12/22 01/19/22 01/12/22 plts 114 01/19/22 plts 129 5 albumin 1 2 01/12/22 01/19/22 01/12/22 albumin 3.0 01/19/22 albumin 2.9 6 hyponatremia 1 1 01/12/22 01/19/22 01/12/22 Sodium 135 01/19/22 sodium 134 7 WBC decreased 3 01/19/22 01/19/22 WBC 1.96 << solicited AEs >> 1 anemia 0 1 1 1 01/05/22 01/12/22 01/19/22 01/05/22 hgb 12.8 01/12/22 hgb 11.9 01/19/22 hgb 11.1 2 Ear pain 0 3 Hearing impairment 0 0 4 Middle ear inflammation 0 5 tinnitus 0 1 1 1 01/04/22 01/12/22 01/19/22 Comes and goes 6 vertigo 0 7 Vestibular disorder 0 8 Dry mouth 1 2 2 2 12/15/21 12/25/21 01/05/22 01/12/22 Using salt water/baking soda rinses 9 dysphagia 0 2 2 01/03/2212/172101/12/22 :Had phone appointment with COMBINER 10 Mucositis oral 1 2 2 3 12/25/21 01/05/22 01/12/22 01/19/22 Gums bleeding when brushing. c/o pain 11 Nausea 0 1 1 2 01/04/22 01/12/22 01/19/22 12 vomiting 0 1 1 2 01/04/22 01/12/22 01/19/22 13 fatigue 0 2 2 2 12/82101/12/22 01/19/22 14 pain 1 2 2 2 2 04/202112/25/21 01/05/22 01/12/22 01/19/22 Start oxycodone 5 mg Q 4hr PRN 12/26/21 01/12/22 increased to 10 mg PRN 15 Dermatitis radiation 1 1 1 1 12/26/21 01/05/22 01/12/22 01/19/22 moisturizing cream 16 ANC decreased 0 01/19/22 01/19/22 ANC 1.26 WNL 17 Weight loss 0 1 01/12/22 5% weight loss from starting weight 18 anorexia 1 2 2 12/25/21 01/03/22 01/12/22 19 dehydration 0 1 01/19/22 01/19/22 By evidence of orthostatic BPs 20 Peripheral sensory neuropathy 1 1 1 2 2 12/12/21 12/26/21 01/05/22 01/12/22 01/19/22 Right hand and some chronic bilateral feet Feet more numb. Same bilaterally. Chemo dose adjusted 01/12/22 21 Acute kidney injury 0 22 Pharyngeal mucositis 3 3 3 3 12/25/21 01/05/22 01/12/22 01/19/22 Take oxycodone PRN EDUCATION PROVIDED take Nystatin for thrush. swish and swallow if you can. . Added extra days of hydration and dexamethasone. See Dr Sy' Note. Pt instructed to call clinic with any questions or concerns. For weekend coverage while our clinic is closed, the patient and his were instructed to call [facility] at [phone] and ask for the television installer radiation or medical oncologist. They verbalized understanding. Surveys: None today . PLAN 1. Subject agrees to continue on study HN009 per protocol. Weekly chemo tomorrow & Daily radiation treatments . 2. Daily hydration this week. Last radiation treatment this 01/22/22 Patient verbalizes understanding of, and agreement with, plan. Advised to contact this office for any questions/concerns, as well as for any new or worsening symptoms. documented in this encounter Plan of Treatment Upcoming Encounters Date Type Specialty Care Team Description 01/26/2022 Infusion Hematology and Oncology 01/26/2022 Office Visit Hematology and Oncology Mirta Sy MD [facility] DR ONCOLOGY DEPT. [place], [place] [address] (Wo rk) 01/28/2022 Office Visit Radiation Oncology Chilango Michel MD [facility] RADIATION ONCOLO [place], [place] [address] (Wo rk) 01/29/2022 Infusion Hematology and Oncology 02/05/2022 Infusion Hematology and Oncology documented as of this encounter Visit Diagnoses Not on filedocumented in this encounter Care Teams Production Foreman Relationship Specialty Start Date End Date Amelia Gomes APRN PCP - General Family Medicine 10/17/[address] [place] [address] documented as of this encounter
--- OUTSIDE RECORDS SUMMARY | 2022-01-24 03:56 | XMS_ITS | Encounter Summary ---
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 [id number] [place] [address] Referral ID Status Reason Start Date Expiration Date Visits V isits Requested Authorized [id number] Authorized 12/08/2021 02/25/2022 99 99 Encounter Details Date Type Department Care Team Description 01/19/2022 Infusion Hematology Oncology at [facility] lbert's syndrome; [facility] Tonsil cancer; [address] [place] [address] History of kidney stones [place], [place] [phone] Social History Tobacco Use [...] documented as of this encounter Progress Notes Sepideh Michael RN - 01/19/2022 2:30 PM EDT INFUSION THERAPY ADMINISTRATION NOTES DIAGNOSIS: H/N CA REASON FOR VISIT: Hydration and antiemetics SUBJECTIVE Pino reports he had been having more nausea and could not take his compazine- new zofran ODT script sent in today. Medicated with Zofran 8mg IV and 5mg IV Dex with hydration today with some relief. OBJECTIVE LAB DATA: N/A REACTIONS (DESCRIPTION, TIME, INTERVENTION AND EFFECTIVENESS)none ASSESSMENT Pino was awake, alert and he tolerated treatment well. Pt's port checked for good blood return and patency before use. Port Flushed with 20 ML NS and 500 units Heparin then deaccessed. PLAN Return to clinic per routine. documented in this encounter Plan of Treatment Upcoming Encounters Date Type Specialty Care Team Description 01/26/2022 Infusion Hematology and Oncology 01/26/2022 Office Visit Hematology and Oncology Mirta Sy MD [facility] DR ONCOLOGY DEPT. [place], [place] [address] (Wo rk) 01/28/2022 Office Visit Radiation Oncology Chilango Michel MD [facility] RADIATION ONCOLO [place], [place] [address] (Wo rk) 01/29/2022 Infusion Hematology [...] MAR Action Action Date Dose Rate Site dexAMETHasone (Decadron) (10 mg/mL) Given 01/19/2022 2:37 PM EDT 5 mg injection 5 mg 5 mg, Intravenous, ONCE, 1 dose, On Wed01/19/22 at 1430 ondansetron (pf) (Zofran) (2 mg/mL) injection 8 Given 01/19/2022 2:37 PM EDT 8 mg mg 8 mg, Intravenous, ONCE, 1 dose, On Wed01/19/22 at 1430 sodium chloride 0.9% infusion New Bag 01/19/2022 2:22 PM EDT 1,000 mLs 500 mL/hr 1,000 mL, at 500 mL/hr, Intravenous, ONCE, 1 dose, On Wed01/19/22 at 1430, Administer over 2 hours documented in this encounter Care Teams Geographic Information System Analyst Relationship Specialty Start Date End Date Amelia Gomes APRN PCP - General Family Medicine 10/17/20 [address] [place] [address] documented as of this encounter
--- OUTSIDE RECORDS SUMMARY | 2022-01-24 03:56 | XMS_ITS | Clinical Summary ---
:1935 Author Organization [facility] [place] [address] Care Team Providers Name Role Phone Mateocalvin Amelia Branch APRN Primary Care Provider [phone] Allergies Active Allergy Reactions Severity Noted Date Comments Transparent Dressings Rash 11/17/2021 Pt had port placed 11/13/21, tegaderm remove d over site revealed skin b reak-down and blisters, Try s orbaview/ IV 3000 in future Medications Medication Sig Dispensed Refills Start Date End Date Status simvastatin (ZOCOR) 80 80MG, PO, Every 0 04/03/2009 Active mg tablet other day allopurinol (ZYLOPRIM) 300mg, PO, QAM 0 04/03/2009 Active 300 mg tablet fluticasone propionate by Each Nare 0 07/03/2019 Active (FLONASE) 50 route daily. mcg/actuation [place], Suspension SAW PALMETTO ORAL Take by mouth. 0 Active KRILL OIL ORAL Take by mouth. 0 Active acetaminophen (TYLENOL) Take 650 mg by 0 Active 650 mg Tablet Sustained mouth every 8 Release hours as needed for Pain. Do not exceed 6 tabs in 24 hours diclofenac (Voltaren) 1 Apply topically. 0 Active % Gel prochlorperazine Take 1 tablet by 30 tablet 3 12/08/2021 Active (Compazine) 10 mg Tablet mouth every 6 hours as needed for Nausea. Sodium Fluoride Place 5 mLs onto 56 g 12/08/2021 Active (DentaGel) 1.1 % teeth nightly. GelIndications: Tonsil cancer, Xerostomia due to radiotherapy emollient combination Apply topically. 0 Active no.111 (REMEDY PHYTOPLEX Apply to area of MOISTURIZER TOP) radiation twice a day but no less than 2 hours before a treatment. polyethylene glycoL Take 17 g by 0 Active (Miralax) 17 gram/dose mouth daily. Powder lidocaine (Xylocaine) 2 Patient to mix 100 mL 1 12/22/2021 Active % SolutionIndications: equal parts with Tonsil cancer OTC Maalox & Benadryl. Swallow 5 mls of mixture PRN for throat pain. No more than 8 doses per day' Additional Information Patient taking differently: Patient to mix equal parts with OTC Maalox & Benadryl. Swallow 5 mls of mixture PRN for throat pain. No more than 8 doses per day', Reported on 01/20/2022 ondansetron ODT (Zofran-ODT) 8 mg Take 1 tablet by 20 tablet 0 01/05/2022 Active Tablet, Rapid mouth every 8 hours DissolveIndications: Tonsil as needed for cancer, Chemotherapy-induced Nausea. Dissolve in nausea mouth or dissolve in water and instill through G-tube fentaNYL (Duragesic) 12 mcg/hr Change 1 patch on 5 patch 0 1 Active Patch 72 hr the skin every 3 days. nystatin (Mycostatin) 100,000 Take 5 mLs by mouth 473 mL 0 01/12/2022 Active unit/mL SuspensionIndications: 4 times daily. Swish Oral candidiasis in mouth for as long as possible. Swallow if tolerable. oxyCODONE (Roxicodone) 5 mg/5 mL Take 7.5 mLs by 500 mL 0 1 Active SolutionIndications: Tonsil mouth every 4 hours cancer as needed for Pain. May increase to 10 mg every 4 hours if necessary. ondansetron ODT (Zofran-ODT) 8 mg Take 1 tablet by 20 tablet 3 01/19/2022 Active Tablet, Rapid mouth every 6 hours DissolveIndications: as needed for Chemotherapy-induced nausea Nausea. 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 Hypercholesterolemia 10/30/2021 Actinic keratosis 12/23/2015 Filiform wart 12/23/2015 AK (actinic keratosis) 08/17/2012 SK (seborrheic keratosis) 08/17/2012 History of nonmelanoma skin cancer 08/17/2012 Overview: BCC- left helix Encounters Date Type Specialty Care Team Description 01/23/2022 Infusion Hematology and Gilbert's syn drome; Oncology Tonsil cancer; History of kidn ey stones 01/22/2022 Infusion Hematology and Gilbert's syn drome; Oncology Tonsil cancer; History of kidn ey stones 01/22/2022 Travel 01/21/2022 Office Visit Radiation Oncology Wili Barrow Tonsil cancer MD Parveen 01/21/2022 Infusion Hematology and Gilbert's syn drome; Oncology Tonsil cancer; History of kidn ey stones 01/21/2022 Notes Only Radiation Oncology Kaley Lee RN 01/20/2022 Infusion Hematology and Tonsil cancer Oncology 01/20/2022 Travel 01/19/2022 Infusion Hematology and Gilbert's syn drome; Oncology Tonsil cancer; History of kidn ey stones 01/19/2022 Office Visit Hematology and Gris Dawn Tonsevgeny canc er Oncology RD 01/19/2022 Office Visit Hematology and Kale Sy Chemotherapy -induced nausea; Oncology MD Marcie Tonsil cancer 01/19/2022 Notes Only Hematology and Kaley Lee RN 01/16/2022 Infusion Hematology and Gilbert's syn drome; Oncology Tonsil cancer; History of kidn ey stones 01/16/2022 Notes Only Hematology and Kaley Lee RN 01/16/2022 Orders Only Radiation Oncology Marito Michelil rafael Ward MD 01/15/2022 Infusion Hematology and Elias's syn drome; Oncology Tonsil cancer; History of kidn ey stones 01/15/2022 Notes Only Hematology and Lizette Benson, Oncology SKEIN WASHER 01/14/2022 Office Visit Radiation Oncology Marito Michel MD 01/14/2022 Orders Only Hematology and Kale Sy Tonsil cance r Oncology MD Marcie 01/13/2022 Infusion Hematology and Tonsil cancer Oncology 01/13/2022 External Results Pharmacy Kale Sy MD 01/13/2022 Orders Only Hematology and Bert Scanlon Tonsil cance r Oncology MD Mirta 01/12/2022 Office Visit Hematology and Gris Dawn, Tonsil canc er Oncology RD 01/12/2022 Office Visit Hematology and Kale Sy Tonsil cance r; Oncology MD Marcie Oral candidiasi s 01/12/2022 Unscheduled Encounter Hematology and Gris Dawn, To nsil cancer Oncology RD 01/12/2022 Notes Only Radiation Oncology Kaley Lee RN 01/09/2022 Infusion Hematology and Elias's syn drome; Oncology Tonsil cancer; History of kidn ey stones 01/07/2022 Office Visit Radiation Oncology Marito Michelil rafael Ward MD 01/07/2022 TH Visit (TeleHealth) Hematology and Downs, Bonnie Ton lauren cancer; Oncology C, 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 Dysphagia, unsp ecified type 01/06/2022 Infusion Hematology and Tonsil cancer Oncology 01/06/2022 Notes Only Hematology and Lizette Benson, Oncology SKEIN WASHER 01/06/2022 External Results Pharmacy Kale Sy MD 01/05/2022 Office Visit Hematology and Gris Dawn, Tonsil canc er Oncology RD 01/05/2022 Office Visit Hematology and Kale Sy Tonsevgeny cance r; Oncology MD Elias Jack'parveen syndr ome; Chemotherapy-in duced nausea 01/05/2022 Notes Only Radiation Oncology Kaley Lee RN 01/02/2022 Office Visit Hematology and Gris Dawn, Tonsil canc er Oncology RD 01/02/2022 Infusion Hematology and Gilbert's syn drome; Oncology Tonsil cancer; History of kidn ey stones 01/02/2022 Notes Only Hematology and Kaley Lee, RN 12/31/2021 Office Visit Radiation Oncology Marito Michel cancer MD Sylvia 12/30/2021 Infusion Hematology and Tonsil cancer Oncology 12/30/2021 Notes Only Hematology and Lizette Benson, Oncology SKEIN WASHER 12/29/2021 Office Visit Hematology and Gris Dawn, Tonsil canc er Oncology RD 12/29/2021 Office Visit Hematology and Kale Syil cance r Oncology MD Marcie 12/26/2021 Infusion Hematology and Gilbert's syn drome; Oncology Tonsil cancer; History of arlet brush 12/26/2021 Unscheduled Encounter Hematology and Kale Sy lauren cancer Oncology MD Marcie 12/26/2021 Notes Only Radiation Oncology Kaley Lee RN 12/24/2021 Office Visit Radiation Oncology Marito Michel MD 12/23/2021 Infusion Hematology and Gilbert's syn drome; Oncology Tonsil cancer; History of arlet brush 12/22/2021 Office Visit Hematology and Gris Dawn, Tonsil canc er Oncology RD 12/22/2021 Office Visit Hematology and Kale Sy Tonsil cance r Oncology MD Marcie 12/22/2021 Notes Only Radiation Oncology Kaley Lee RN 12/19/2021 Office Visit Hematology and Gris Dawn, Tonsil canc er Oncology RD 12/19/2021 Infusion Hematology and Gilbert's syn drome; Oncology Tonsil cancer; History of kidn ey stones 12/17/2021 Hospital Encounter Radiology Tab, Tonsil ca miriamer Janice Padilla APRN 12/17/2021 Office Visit Radiation Oncology Marito Michel cancer MD Sylvia 12/16/2021 Infusion Hematology and Tonsil cancer Oncology 12/16/2021 Notes Only Hematology and Lizette Benson, Oncology SKEIN WASHER 12/15/2021 Office Visit Hematology and Kale Sy cance r Oncology MD Marcie 12/15/2021 Orders Only Hematology and Kale Sy cance r Oncology MD Marcie 12/12/2021 Infusion Hematology and Gilbert's syn drome; Oncology Tonsil cancer; History of kidn ey stones 12/12/2021 Office Visit Hematology and Gris Dawn Tonsil cantran er Oncology RD 12/11/2021 Telephone Radiation Oncology Jose C Arita 12/10/2021 Office Visit Radiation Oncology Marito Michel MD 12/10/2021 Orders Only Hematology and Kale Sy Oncology MD Marcie 12/10/2021 Telephone Hematology and [place], Follow-up (S/ p Oncology Alexander Kamara RN chemotherapy ) 12/09/2021 Infusion Hematology and Tonsil cancer Oncology 12/09/2021 Notes Only Radiation Oncology Kaley Lee RN 12/09/2021 Orders Only Hematology and Kale Sy MD 12/08/2021 Office Visit Hematology and Kale Sy; Oncology MD Marcie 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 Orders Only Hematology and Kale Sy Oncology MD Marcie 12/03/2021 Orders Only Radiation Oncology Marito Michel MD 12/02/2021 Notes Only Radiation Oncology Kaley Lee RN 11/24/2021 Office Visit Hematology and Gris Dawn Tonsil cantran er Oncology RD 11/24/2021 Office Visit Hematology and Kale Sy MD 11/24/2021 Notes Only Hematology and Kale Sy MD 11/20/2021 Hospital Encounter Radiology Kale Sy MD (D-CANCELLED BY DEPARTMENT) 11/20/2021 Hospital Encounter Radiology Kale Sy MD 11/20/2021 Office Visit Radiation Oncology Marito Michel MD 11/20/2021 Ancillary Appointment Radiation Oncology Chilango Michel MD 11/18/2021 Orders Only Radiation Oncology Marito Michel MD 11/17/2021 Hospital Encounter Radiology Marito Michel MD 11/13/2021 Hospital Encounter Radiology Kale Sy Pre-op t liningKylee Jack MD Tonsil cancer 11/13/2021 Laboratory Lab Pre-op testing; Appointment Tonsil cancer 11/11/2021 Anesthesia Event Surgery Anne Marie Matute MD Eckhardt, Adam C, LITTLE 11/11/2021 Surgery Surgery Nguyen, LARYNGHILL, Jarett Lantigua MD MICROSCOPE, WIT H BIOPSY (WRVU 3. 55) 11/11/2021 Hospital Encounter General Surgery Nguyen, Tonsil cancer Jarett Lantigua MD 11/11/2021 Interpretation Only Radiology Unknown 11/05/2021 Hospital Encounter Radiology Kale Sy Tonsevgeny c ritu Jack MD 11/05/2021 Laboratory Lab Appointment 11/04/2021 Orders Only Radiation Oncology Marito Michelil cancer MD Sylvia 11/04/2021 Telephone Hematology and Madeleine Arevalo Oncology 10/30/2021 Office Visit Hematology and Kale Sy cance r; Oncology MD Marcie History of kidney stones Janice Barth APRN 10/30/2021 Orders Only Radiology Meera Sosa PA 10/30/2021 Patient Outreach Hematology and Allan, Oncology Flaca Ward RN 10/28/2021 Office Visit Dermatology Marcos, History of basa l cell carcinoma (BCC); Meghana Kirby MD Actinic kerat oses; Seborrheic davey toses; Lentigines; Multiple benign nevi 10/28/2021 Orders Only Maxillofacial Dejan Alas MD 10/27/2021 Transcribe Orders Primary Care Khorrami, Extraction of Gerda, DDS tooth needed from Last 3 Months Immunizations Name Administration Dates Next Due Influenza Vaccine, Whole 02/26/2006 Moderna Covid-19 (Accounts Receivable Assistant 100mcg) Vaccine 05/22/2020, 2020 Td, adult 07/04/2003 Social History Tobacco Use Types Packs/Day Years [...] place to sleep or slept in a custodial (including now)? Sex Assigned at Date Recorded Not on file Last Filed Vital Signs Vital Sign Reading Time Taken Comments Blood Pressure 131/78 01/23/2022 9:02 AM EDT Pulse 90 01/23/2022 9:02 AM EDT Temperature 36.5 ??C (97.7 ??F) 01/23/2022 9:02 AM EDT Respiratory Rate 16 01/23/2022 9:02 AM EDT Oxygen Saturation 99% 01/23/2022 9:02 AM EDT Inhaled Oxygen Concentration - - Weight 83.5 kg (184 lb) 01/23/2022 9:02 AM EDT Height 175.3 cm (5' 9.02) 01/22/2022 8:22 AM EDT Body Mass Index 27.16 01/22/2022 8:22 AM EDT Plan of Treatment Upcoming Encounters Date Type Specialty Care Team Description 01/26/2022 Infusion Hematology and Oncology 01/26/2022 Office Visit Hematology and Oncology Mirta Sy MD [facility]. [place], [place] [address] (Wo rk) 01/28/2022 Office Visit Radiation Oncology Chilango Michel MD [facility] RADIATION ONCOLO [place], [place] [address] (Wo rk) 01/29/2022 Infusion Hematology and Oncology 02/05/2022 Infusion Hematology and Oncology Health Maintenance Due Date Last Done Comments Tdap adult 1956 Zoster vaccine (1 of 2) 1987 Advance Directive 1992 Pneumoccocal Vaccine: 65+ (1 - PCV) 2002 Tetanus vaccine 07/03/2013 07/04/2003 Covid-19 Vaccine (3 - Booster for Moderna 07/17/20202020, 04/24/2020 series) Influenza (Flu) vaccine (1 of 1 - 11/27/2021 02/26/2006 Influenza standard series) Medical Devices Implanted Type Area Ict Account Manager Device Shelf Model / Identifier Expiration Serial / Date Lot Mediport-11/13/2021 Mediport Right: [employer] - [id number] / Implanted: Qty: 1 on 11/13/2021 by Dejan Sprague MD Chest [employer] IN [id number] / Wall [id number] Procedures Procedure Name Priority Date/Time Associated Comments Diagnosis LAB SCAN 01/19/2022 12:00 Results for this AM EDT procedure are i n the results section. LAB SCAN 01/15/2022 12:00 Results for this AM EDT procedure are i n the results section. LAB SCAN 01/14/2022 12:00 Results for this AM EDT procedure are i n the results section. CLINICAL TRIAL SCAN Routine 01/13/2022 CLINICAL TRIAL SCAN Routine 01/13/2022 LAB SCAN 01/12/2022 12:00 Results for this AM EDT procedure are i n the results section. LAB SCAN 01/12/2022 12:00 Results for this AM EDT procedure are i n the results section. LAB SCAN 01/08/2022 12:00 Results for this AM EDT procedure are i n the results section. CLINICAL TRIAL SCAN Routine 01/06/2022 LAB SCAN 01/06/2022 12:00 Results for this AM EDT procedure are i n the results section. CLINICAL TRIAL SCAN Routine 01/05/2022 LAB SCAN 01/05/2022 12:00 Results for this AM EDT procedure are i n the results section. LAB SCAN 01/05/2022 12:00 Results for this AM EDT procedure are i n the results section. LAB SCAN 01/05/2022 12:00 Results for this AM EDT procedure are i n the results section. ORDS - PROVIDER CARE 12/29/2021 12:00 Res ults for this SCAN AM EDT procedure are i n the results section. LAB SCAN 12/29/2021 12:00 Results for this AM EDT procedure are i n the results section. LAB SCAN 12/29/2021 12:00 Results for this AM EDT procedure are i n the results section. LAB SCAN 12/29/2021 12:00 Results for this AM EDT procedure are i n the results section. ORDS - PROVIDER CARE 12/23/2021 12:00 Res ults for this SCAN AM EDT procedure are i n the results section. LAB SCAN 12/23/2021 12:00 Results for this AM EDT procedure are i n the results section. AUDIOLOGY SCAN 12/22/2021 12:00 Results f or this AM EDT procedure are i n the results section. RECIST 1.1 Routine 12/17/2021 9:41 Tonsil cancer Results for this AM EDT procedure are i n the results section. ORDS - PROVIDER CARE 12/16/2021 12:00 Res ults for this SCAN AM EDT procedure are i n the results section. LAB SCAN 12/16/2021 12:00 Results for this AM EDT procedure are i n the results section. LAB SCAN 12/15/2021 12:00 Results for this AM EDT procedure are i n the results section. LAB SCAN 12/15/2021 12:00 Results for this AM EDT procedure are i n the results section. ORDS - PROVIDER CARE 12/09/2021 12:00 Res ults for this SCAN AM EDT procedure are i n the results section. LAB SCAN 12/08/2021 12:00 Results for this AM EDT procedure are i n the results section. LAB SCAN 12/08/2021 12:00 Results for this AM EDT procedure are i n the results section. LAB SCAN 12/08/2021 12:00 Results for this AM EDT procedure are i n the results section. LAB SCAN 12/04/2021 12:00 Results for this AM EDT procedure are i n the results section. IMPLANTABLE DEVICES 11/26/2021 12:00 Resu lts for this SCAN AM EDT procedure are i n the results section. CT RAD ONC NEURO INTERP Routine 11/20/2021 12:39 Malignant rome plasm Results for this ONLY PM EDT of overlapping procedure are in sites of tonsil the results section. MRI NECK WITH/WO Routine 11/17/2021 2:32 Tonsil cancer Results for this CONTRAST PM EDT procedure are i n the results section. IR G-TUBE PLACEMENT Routine 11/13/2021 11:38 Tonsil cancer Res ults for this AM EDT procedure are i n the results section. IR MEDIPORT PLACEMENT Routine 11/13/2021 11:38 Tonsil cancer R esults for this AM EDT procedure are i n the results section. HC PROTHROMBIN TIME STAT 11/13/2021 7:59 Pre-op testi ng Results for this AM EDT Tonsil cancer procedure are in the results section. HC HEMOGRAM STAT 11/13/2021 7:59 Pre-op testing Results for this AM EDT Tonsil cancer procedure are in the results section. FINE NEEDLE ASPIRATION Routine 11/11/2021 12:31 Tonsil cancer BIOPSY, INC US PM EDT GUIDANCE; FIRST LESION BIOPSY OF TONSIL Routine 11/11/2021 12:31 Tonsil cancer PM EDT NON-VULCANIZED FIBER UNIT OPERATOR FINAL REPORT Routine 11/11/2021 12:22 Res ults for this PM EDT procedure are i n the results section. CYTOPATHOLOGY Routine 11/11/2021 12:22 Results fo r this NON-GYNECOLOGICAL PM EDT procedure are in the results section. SPECIMEN TO PATHOLOGY Routine 11/11/2021 12:10 Re sults for this PM EDT procedure are i n the results section. SPECIMEN TO PATHOLOGY Routine 11/11/2021 11:53 Re sults for this AM EDT procedure are i n the results section. SPECIMEN TO PATHOLOGY Routine 11/11/2021 11:50 Re sults for this AM EDT procedure are i n the results section. SURGICAL PATHOLOGY Routine 11/11/2021 11:49 Resul ts for this REPORT AM EDT procedure are i n the results section. FINE NEEDLE ASPIRATION 11/11/2021 11:16 Tonsil cancer BIOPSY, INC US AM EDT GUIDANCE; FIRST LESION BIOPSY OF TONSIL (WRVU 11/11/2021 11:16 Tonsil cancer 7.69) AM EDT SURGICAL EXTRACTIONS 11/11/2021 11:16 Tonsil cancer REQUIRING ELEVATION OF AM EDT MUCOPERIOSTEAL FLAP AND REMOVAL OF BONE OR SECTION OF TOOTH (WRVU 1.09) LARYNGOSCOPY, 11/11/2021 11:16 Tonsil cancer MICROSCOPE, WITH BIOPSY AM EDT (WRVU 3.55) SURG EXTRAC REQUIR Routine 11/11/2021 9:20 Tonsil cancer ELEVAT MUCPERISTEAL AM EDT FLAP/RIP BONE/SECT TOOTH LARYNGOSCOPY, Routine 11/11/2021 9:20 Tonsil cancer MICROSCOPE, WITH BIOPSY AM EDT DH OR ENDOSCOPY Routine 11/11/2021 Results for this procedure are i n the results section. IR BIOPSY LYMPH NODE Routine 11/05/2021 11:08 Tonsil cancer Re sults for this (HEAD/NECK) AM EDT procedure are i n the results section. NON-VULCANIZED FIBER UNIT OPERATOR FINAL REPORT Routine 11/05/2021 10:50 Res ults for this AM EDT procedure are i n the results section. CYTOPATHOLOGY Routine 11/05/2021 9:49 Results for this NON-GYNECOLOGICAL AM EDT procedure are in the results section. from Last 3 Months Results SCAN DOC: LAB (01/19/2022 12:00 AM EDT)Only the most recent of21 resultswithin the time period is included. Narrative 01/19/2022 12:00 AM EDT This result has an attachment that is no t available. Ordered by an unspecified provider. Scanning Provider MEDIA MGR SCAN EXT ORDR/RSLT Scan Doc: Clinical Trial (01/13/2022)Only the most recent of4 resultswithin the time period is included. Narrative This result has an attachment that is no t available. Kale Sy MD MEDIA MGR SCAN EXT ORDR/RSLT SCAN DOC: ORDS - PROVIDER CARE (12/29/2021 12:00 AM EDT)Only the most recent of4 resultswithin the time period is included. Narrative 12/29/2021 12:00 AM EDT This result has an attachment that is no t available. Ordered by an unspecified provider. Scanning Provider MEDIA MGR SCAN EXT ORDR/RSLT SCAN DOC: AUDIOLOGY (12/22/2021 12:00 AM EDT) Narrative 12/22/2021 12:00 AM EDT This result has an attachment that is no t available. Ordered by an unspecified provider. Scanning Provider MEDIA MGR SCAN EXT ORDR/RSLT RECIST 1.1 (12/17/2021 9:41 AM EDT) Anatomical Region Laterality Modality Other Specimen (Source) Anatomical Location Collection Method / Collectio n Time Received Time / Laterality Volume Impressions 12/17/2021 10:42 AM EDT Indicator lymph nodes as detailed above. Thank you for letting us participate in the care of this patient. ??If you are a health care provider and have any questi ons regarding this report, please contact the number below. ??For patients who have questions please contact the health career services officer that requested your imaging first. ? Narrative 12/17/2021 10:42 AM EDT EXAMINATION: RECIST 1.1 CLINICAL HISTORY: confirm eligibility ?? for study TECHNIQUE: Radiation oncology planning CT scan neck performed with and without contrast. COMPARISON: Neck MRI 11/17/2021. FINDINGS: The following lymph node measurements ar e provided below: Right level 2A lymph node on series 8, i mage 104 measures 1.9 x 1.7 cm compared to 1.5-1.8 cm on series 7, image 23 of t he MRI dated 11/17/2021. Right level 2B node on series 8, image 1 04 measures 1.1 x 1.2 cm compared to 1.0 x 0.8 cm on series 7, image 24 MRI dated 11/17/2021. Right level 5B measures 1.3 x 1.1 cm com pared to 1.6 x 4 cm on series 7, image 30 on the previous MRI dated 11/17/2021. Procedure Note Kevin Quintanilla MD - 12/17/2021Formatti ng of this note might be different from the original. EXAMINATION: RECIST 1.1 CLINICAL HISTORY: confirm eligibility fo r study TECHNIQUE: Radiation oncology planning CT scan neck performed with and without contrast. COMPARISON: Neck MRI 11/17/2021. FINDINGS: The following lymph node measurements ar e provided below: Right level 2A lymph node on series 8, i mage 104 measures 1.9 x 1.7 cm compared to 1.5-1.8 cm on series 7, image 23 of t he MRI dated 11/17/2021. Right level 2B node on series 8, image 1 04 measures 1.1 x 1.2 cm compared to 1.0 x 0.8 cm on series 7, image 24 MRI dated 11/17/2021. Right level 5B measures 1.3 x 1.1 cm com pared to 1.6 x 4 cm on series 7, image 30 on the previous MRI dated 11/17/2021. IMPRESSION Indicator lymph nodes as detailed above. Thank you for letting us participate in the care of this patient. If you are a health care provider and have any questi ons regarding this report, please contact the number below. For patients w ho have questions please contact the health career services officer that requested your imaging first. Janice Barth APRN [facility] RESEARCH ORDERABLES SCAN DOC: IMPLANTABLE DEVICES (11/26/2021 12:00 AM EDT) Narrative 11/26/2021 12:00 AM EDT This result has an attachment that is no t available. Ordered by an unspecified provider. Scanning Provider MEDIA MGR SCAN EXT ORDR/RSLT CT Rad Onc Neuro Interp Only (11/20/2021 12:39 PM EDT) Anatomical Region Laterality Modality Head Computed Tomography Specimen (Source) Anatomical Location Collection Method / Collectio n Time Received Time / Laterality Volume Impressions 11/21/2021 8:38 AM EDT Examination performed for radiation planning purposes. Thank you for letting us participate in the care of this patient. ??If you are a health care provider and have any questi ons regarding this report, please contact the number below. ??For patients who have questions please contact the health career services officer that requested your imaging first. ? 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 COMPARISON: Neck MRI 11/17/2021. CT neck 10/09/2021. PET/CT scan 10/09/2021. FINDINGS: Right-sided tonsillar tumor wi th associated level right 2, 3 and 5 lymphadenopathy identified. The right le nicole 5 lymph node is significantly smaller when compared to the original CT scan. Equivocal left level 2A lymph node unchanged in size. Procedure Note Kevin Quintanilla MD - 11/21/2021Formatti ng of this note might be different from the original. 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 COMPARISON: Neck MRI 11/17/2021. CT neck 10/09/2021. PET/CT scan 10/09/2021. FINDINGS: Right-sided tonsillar tumor wi th associated level right 2, 3 and 5 lymphadenopathy identified. The right le nicole 5 lymph node is significantly smaller when compared to the original CT scan. Equivocal left level 2A lymph node unchanged in size. IMPRESSION Examination performed for radiation plan rima purposes. Thank you for letting us participate in the care of this patient. If you are a health care provider and have any questi ons regarding this report, please contact the number below. For patients w ho have questions please contact the health career services officer that requested your imaging first. Marito Michel MD IMG OUTSIDE INTERPRETATION O RDERABLES MRI Soft Tissue Neck wwo Contrast (11/17/2021 2:32 PM EDT) Anatomical Region Laterality Modality Neck Magnetic Resonance Specimen (Source) Anatomical Location Collection Method / Collectio n Time Received Time / Laterality Volume Impressions 11/18/2021 11:57 AM EDT 1. ??Right tonsillar mass, 2.7 cm. 2. ??Right cervical lymphadenopathy, lar gest increased to 2.4 cm in level 2A. Thank you for letting us participate in the care of this patient. ??If you are a health care provider and have any questi ons regarding this report, please contact the number below. ??For patients who have questions please contact the health career services officer that requested your imaging first. ? Narrative 11/18/2021 11:57 AM EDT EXAMINATION: MRI SOFT TISSUE NECK WWO CONTRAST CLINICAL HISTORY: Head/neck cancer, stag ing R tonsillar HN cancer, MRI for treatment planning. Thin cut T1, T1 + C, HAGAN w/ FS. Encompass base of skull. TECHNIQUE: MRI of the neck was performed before and after the intravenous administration of 18cc Dotarem. COMPARISON: CT neck 10/09/2021. PET/CT 10/09/2021. FINDINGS: Right tonsillar mass measures 2.0 x 2.3 cm on axial images and 2.7 cm in craniocaudal dimension. The medial aspec t of the mass is adherent to the soft palate. The inferior aspect of the mass extends to the right base of tongue. No invasion or effacement of the parapharyn geal space to the lateral and superior aspects. Multiple enlarged right sided cervical l ymph nodes: Largest is 2.4 cm in level 2A, increased from 2.1 cm (when compared with CT neck) No increase in 1.0 cm level 5A node, pre viously 1.2 cm No increase in 2.0 cm level 5A node, pre viously 2.2 cm Nonvisualized subcentimeter right latera l retropharyngeal lymph node, previously FDG avid. No new cervical lymphadenopathy. No skul l base masses or perineural spread. Procedure Note Ricardo Hector MD - 11/18/2021Format ting of this note might be different from the original. EXAMINATION: MRI SOFT TISSUE NECK WWO CO NTRAST CLINICAL HISTORY: Head/neck cancer, stag ing R tonsillar HN cancer, MRI for treatment planning. Thin cut T1, T1 + C, HAGAN w/ FS. Encompass base of skull. TECHNIQUE: MRI of the neck was performed before and after the intravenous administration of 18cc Dotarem. COMPARISON: CT neck 10/09/2021. PET/CT 10/09/2021. FINDINGS: Right tonsillar mass measures 2.0 x 2.3 cm on axial images and 2.7 cm in craniocaudal dimension. The medial aspec t of the mass is adherent to the soft palate. The inferior aspect of the mass extends to the right base of tongue. No invasion or effacement of the parapharyn geal space to the lateral and superior aspects. Multiple enlarged right sided cervical l ymph nodes: Largest is 2.4 cm in level 2A, increased from 2.1 cm (when compared with CT neck) No increase in 1.0 cm level 5A node, pre viously 1.2 cm No increase in 2.0 cm level 5A node, pre viously 2.2 cm Nonvisualized subcentimeter right latera l retropharyngeal lymph node, previously FDG avid. No new cervical lymphadenopathy. No skul l base masses or perineural spread. IMPRESSION 1. Right tonsillar mass, 2.7 cm. 2. Right cervical lymphadenopathy, large st increased to 2.4 cm in level 2A. Thank you for letting us participate in the care of this patient. If you are a health care provider and have any questi ons regarding this report, please contact the number below. For patients w ho have questions please contact the health career services officer that requested your imaging first. Marito Michel MD IMG MRI ORDERABLES IR Mediport Placement (11/13/2021 11:38 AM EDT) Anatomical Region Laterality Modality X-Ray Angiography Specimen (Source) Anatomical Location Collection Method / Collectio n Time Received Time / Laterality Volume Narrative 11/13/2021 2:58 PM EDT INTERVENTIONAL RADIOLOGY PROCEDURE NOTE Procedure: 1) Right Mediport Placement 2) G-tube Placement Indication for Procedure: Long-term dura ble venous access for chemotherapy in the setting of tonsillar cancer; thro at pain, long-term nutritional requirements in the setting of radiation therapy. Informed Consent: After discussing risks (including infection, trauma / damage to surrounding structures, hemorr davin, non-success, amongst others), and benefits of the procedure, the patient consented to the procedure. Monitoring and Sedation Details: Due to the painful nature of the procedure, patient received split doses of intravenous fentanyl and versed from the IR nurse while pulse, pressure, ??end tidal CO2 parameters and oxygen saturation were continuously hawa tored. Technique: Port A standard time-out was conducted just b efore the start of the procedure to verify all knapp aspects; including the correct patient and planned procedure, procedure location, informed consent, and all relevant critical information, all of which were correct. Prophylactic antibiotic Ancef 2g IV was administered. The right neck base and upper chest prep ped and draped with maximum sterile barrier technique used throughou t the procedure. ??Local anesthesia provided with 1% lidocaine. ??The right IJ accessed with micropuncture technique under U/S guidance and a 4Fr s karlos placed. ??After additional local anesthetic with 1% lidocaine and 1 % lidocaine with epinephrine, a transverse skin incision was made and a port pocket created with blunt dissection in the upper chest. Single lumen CT injection compatible por t was connected to the port catheter. ??The guide wire was used to m easure the amount of catheter to be placed. The port catheter (8Fr) was tunn eled from the port pocket to the neck entry site and the port positioned in the port pocket. ??The 4Fr sheath was exchanged for a peel-away she ath and the port catheter placed via the peel-away with catheter tip posi tioned in RA under fluoroscopic guidance. ??Port was accessed and aspira eula and flushed readily. ??The port was then loaded with heparin solution. The neck incision was closed with tissue adhesive. ??The pocket incision was closed with interrupted deep 2-0 res orbable suture, superficial 4-0 resorbable suture and tissue adhesive. ? ? Gastrostomy Attention was then turned to the gastros jonna tube placement. Glucagon 1 mg administered IV to minimize peristaltsis . The epigastrium was prepared in sterile fashion. ??After insufflation of air via the NG tube, apposition of the anterior gastric and anterior abdomi nal durbin was documented with lateral fluoroscopic image. ??The skin o kai the stomach was infiltrated with 10 cc 1% lidocaine for anesthesia. ??An 18 ga needle with preloaded stay suture was advanced under fluorosco pic guidance into the stomach and a stay suture deployed. ??This was repea eula. ?? At the center of the stay sutures, another puncture was made and o kai an 0.035 inch Amplatz guidewire, tract was dilated with a 7 mm balloon, and a 16 Fr balloon retained gastrostomy tube was placed. ?? Contrast study did not demonstrate intragastric location. Gastric access wa s lost. A second puncture was made and over a 0.035 Amplatz guidewire, trac t was again dilated with a 7 mm balloon, and the 16 Fr balloon retained gastrostomy tube was placed. Position within the gastric lumen confir med under fluoroscopy with contrast injection. Stay sutures were se cured and wound was dressed. ?? Patient tolerated the procedure well. Medications: Fentanyl 200 mcg IV, Versed 4 mg IV, 1% Lidocaine <10 cc subcutaneous. Antibiotic Prophylaxis: Ancef 2g IV Glucagon 1mg IV Contrast: 20 cc Omnipaque 350, intragast charles. Fluoroscopic Time: 6.9 minutes, 27 mGray . Estimated Blood Loss: < 10 cc. Complications: ??Small-moderate volume i ntraperitoneal free air related to lost gastric access. Findings: ? ? Right Mediport catheter tip positioned in the right atrium. ? ? Gastrostomy catheter balloon positioned within the gastric lumen. ? ? Small-moderate free air present related to procedure. Impression: 1) Implantation of power-injectable, [employer] 8 Fr Dignity Mini Profile single-lumen port in right chest with ti p in the superior cavoatrial junction. The port may be used immediate ly. 2) Successful placement of 16 Fr balloon retained gastrostomy tube. Intra procedure access was lost and with succe ssful re-access. Expected postprocedural intraperitoneal free air present. Plan: - G-tube to gravity drainage for 24 hour s, may cap and use thereafter. Suture release in 7-10 days, order place d and IR outpatient scheduler notified. - Mediport ready for immediate use. - To angio recovery, may discharge home when criteria met. Resident/Fellow: Carlos Lezama MD Attending: Dr. Sprague I, Dr. Sprague, was present throughout e procedure. I was present during the intraservice ti me as documented by the IR Nurse. ?? Kale Sy MD IMG IR ORDERABLES IR G-Tube Placement (11/13/2021 11:38 AM EDT) Anatomical Region Laterality Modality Chest X-Ray Angiography Specimen (Source) Anatomical Location Collection Method / Collectio n Time Received Time / Laterality Volume Narrative 11/13/2021 2:58 PM EDT INTERVENTIONAL RADIOLOGY PROCEDURE NOTE Procedure: 1) Right Mediport Placement 2) G-tube Placement Indication for Procedure: Long-term dura ble venous access for chemotherapy in the setting of tonsillar cancer; thro at pain, long-term nutritional requirements in the setting of radiation therapy. Informed Consent: After discussing risks (including infection, trauma / damage to surrounding structures, hemorr davin, non-success, amongst others), and benefits of the procedure, the patient consented to the procedure. Monitoring and Sedation Details: Due to the painful nature of the procedure, patient received split doses of intravenous fentanyl and versed from the IR nurse while pulse, pressure, ??end tidal CO2 parameters and oxygen saturation were continuously hawa tored. Technique: Port A standard time-out was conducted just b efore the start of the procedure to verify all knapp aspects; including the correct patient and planned procedure, procedure location, informed consent, and all relevant critical information, all of which were correct. Prophylactic antibiotic Ancef 2g IV was administered. The right neck base and upper chest prep ped and draped with maximum sterile barrier technique used throughou t the procedure. ??Local anesthesia provided with 1% lidocaine. ??The right IJ accessed with micropuncture technique under U/S guidance and a 4Fr s karlos placed. ??After additional local anesthetic with 1% lidocaine and 1 % lidocaine with epinephrine, a transverse skin incision was made and a port pocket created with blunt dissection in the upper chest. Single lumen CT injection compatible por t was connected to the port catheter. ??The guide wire was used to m easure the amount of catheter to be placed. The port catheter (8Fr) was tunn eled from the port pocket to the neck entry site and the port positioned in the port pocket. ??The 4Fr sheath was exchanged for a peel-away she ath and the port catheter placed via the peel-away with catheter tip posi tioned in RA under fluoroscopic guidance. ??Port was accessed and aspira eula and flushed readily. ??The port was then loaded with heparin solution. The neck incision was closed with tissue adhesive. ??The pocket incision was closed with interrupted deep 2-0 res orbable suture, superficial 4-0 resorbable suture and tissue adhesive. ? ? Gastrostomy Attention was then turned to the gastros jonna tube placement. Glucagon 1 mg administered IV to minimize peristaltsis . The epigastrium was prepared in sterile fashion. ??After insufflation of air via the NG tube, apposition of the anterior gastric and anterior abdomi nal durbin was documented with lateral fluoroscopic image. ??The skin o kai the stomach was infiltrated with 10 cc 1% lidocaine for anesthesia. ??An 18 ga needle with preloaded stay suture was advanced under fluorosco pic guidance into the stomach and a stay suture deployed. ??This was repea eula. ?? At the center of the stay sutures, another puncture was made and o kai an 0.035 inch Amplatz guidewire, tract was dilated with a 7 mm balloon, and a 16 Fr balloon retained gastrostomy tube was placed. ?? Contrast study did not demonstrate intragastric location. Gastric access wa s lost. A second puncture was made and over a 0.035 Amplatz guidewire, trac t was again dilated with a 7 mm balloon, and the 16 Fr balloon retained gastrostomy tube was placed. Position within the gastric lumen confir med under fluoroscopy with contrast injection. Stay sutures were se cured and wound was dressed. ?? Patient tolerated the procedure well. Medications: Fentanyl 200 mcg IV, Versed 4 mg IV, 1% Lidocaine <10 cc subcutaneous. Antibiotic Prophylaxis: Ancef 2g IV Glucagon 1mg IV Contrast: 20 cc Omnipaque 350, intragast charles. Fluoroscopic Time: 6.9 minutes, 27 mGray . Estimated Blood Loss: < 10 cc. Complications: ??Small-moderate volume i ntraperitoneal free air related to lost gastric access. Findings: ? ? Right Mediport catheter tip positioned in the right atrium. ? ? Gastrostomy catheter balloon positioned within the gastric lumen. ? ? Small-moderate free air present related to procedure. Impression: 1) Implantation of power-injectable, Med comp 8 Fr Dignity Mini Profile single-lumen port in right chest with ti p in the superior cavoatrial junction. The port may be used immediate ly. 2) Successful placement of 16 Fr balloon retained gastrostomy tube. Intra procedure access was lost and with succe ssful re-access. Expected postprocedural intraperitoneal free air present. Plan: - G-tube to gravity drainage for 24 hour s, may cap and use thereafter. Suture release in 7-10 days, order place d and IR outpatient scheduler notified. - Mediport ready for immediate use. - To angio recovery, may discharge home when criteria met. Resident/Fellow: Carlos Lezama MD Attending: Dr. Sprague I, Dr. Sprague, was present throughout procedure. I was present during the intraservice ti me as documented by the IR Nurse. ?? Kale Sy MD IMG IR ORDERABLES (ABNORMAL) Hemogram (11/13/2021 7:59 AM EDT) Analysis Performed At Patho logist Time Signature WBC 6.5 4.0 - 9.5 [facility] x10(3)/[facility] LABORATORY RBC 4.84 4.58 - [facility] 5.54 [facility] x10(6)/[facility] LABORATORY Hemoglobin 15.1 13.7 - [facility] [place] 16.5 g/dL [facility] LABORATORY Hematocrit 45.7 40.5 - [place] [place] 48.5 % [facility] LABORATORY MCV 94.4 (H) 82.9 - [facility] [place]ENN 93.1 [facility] LABORATORY MCH 31.2 27.5 - [place] [place] 32.1 pg [facility] LABORATORY MCHC 33.0 32.0 - [place] [place] 35.7 g/dL [facility] LABORATORY Platelets 236 145 - 357 [facility] x10(3)/[facility] LABORATORY RDWSD 47.2 (H) 36.0 - [facility] 45.0 [facility] RDWCV 13.5 11.4 - [facility] % [facility] LABORATORY MPV 8.8 7.6 - 12.9 [facility] LABORATORY nRBC % Auto 0.0 % [facility] LABORATORY nRBC Abs Auto 0.000 0.000 - [place] 0.000 [facility] x10(3)/[facility] LABORATORY Specimen Anatomical Collection Method Collection Time Receive d Time (Source) Location / / Volume Laterality Blood 11/13/2021 7:59 AM 8:07 EDT AM EDT Resulting Agency Comment Spec In Lab Kale Sy MD HEMATOLOGY ORDERABLES Performing Organization Address City/State/[place] [address] Prothrombin Time (11/13/2021 7:59 AM EDT) P athologist Signature PT 11.7 9.4 - 12.5 [facility] LABORATORY INR 1.0 [facility] LABORATORY Comment: An INR <2.0 indicates adequate procoagul ant activity for hemostasis in most patients without underlying bleeding dis orders, though the INR may not adequately reflect hemostatic capacity i n patients with liver disease and synthetic impairment. The recommended ta rget INR range for therapeutic anticoagulation is 2.0 ? 3.0 for most applications, though lower and higher ranges may be appropriate depending on c linical circumstances. Specimen Anatomical Collection Method Collection Time Receive d Time (Source) Location / / Volume Laterality Blood 11/13/2021 7:59 AM 2 8:07 EDT AM EDT Resulting Agency Comment Spec In Lab Kale Sy MD HEMATOLOGY ORDERABLES Performing Organization Address City/State/ZIP [place] [address] [facility] [address] Non-Gore Maker Final Report (11/11/2021 12:22 PM EDT)Only the most recent of2 results within the time period is included. Component Value Ref Test Analysis Performed At [facility] gist Range Method Time Signature Non-Gore Maker [id number] ? Location: [facility]; [facility]; A FNA Final Report KENN The signing pathologist has (i) examined the relevant preparation(s) for the [facility] specimen(s) and (ii) rendered or confirmed the diagnosis(es) . HOSPITAL LABORATORY . ? No n-Gore Maker Final DIAGNOSIS Suspicious for Malignancy Electronically signed by: ?Jocelyn MUNOZ, Gal Ac Verified: ??11/14/2021 14:26 ??Pathologist Performed at: ??-[facility] Dept. of Pathology, [facility], [place], [place] DISCUSSION Lymph node, left neck level 2 (US-guided FNA): A rare cluster of highly aty pical epithelioid cells is present in the cell block section; suspicious for metastatic carcinoma. Background lymphocytes are noted, consistent with lymph node sampling. Dr. Coronel has reviewed the case and concurs with the findi ngs. --- Immunohistochemistry Studies --- Interpretation: ? Immunohistochemical a ssays were performed (on paraffin-embedded cell block sections fixed in 10% neutr al buffered formalin for 6-72 hours) using the polymer technique with appropriate controls. The sections are studied for p40. The atypical cells are no longer present on the p40 immunostained slide. These immunohistochemical st udies provide ancillary information and are used only in conjunction with standard diagnostic procedures. 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 cloudy, red fluid, with light flecks. Total Preparation: Liquid-Based Prep 1; Cell Block 1. Specimen (Source) Anatomical Collection Method Collection Time Re ceived Time Location / / Volume Laterality 11/11/2021 12:22 PM EDT Jarett Cedillo MD PATHOLOGY/CYTOLOGY ORDERABLE S Performing Organization Address City/[facility]/[place] [address] Cytopathology Non-Gynecological (11/11/2021 12:22 PM EDT)Only the most recent of 2 resultswithin the time period is included. Specimen Anatomical Collection Method Collection Time Receive d Time (Source) Location / / Volume Laterality AP Specimen 11/11/2021 12:22 11/11/2021 PM EDT 12:22 PM EDT [facility]ative [facility]11[facility] 12[facility]22 PM EDT Specimen requisition ordered. ??Separate Pathology report to follow Jarett Cedillo MD PATHOLOGY/CYTOLOGY ORDERABLE S Performing Organization Address City/[facility]/ZIP Code Phon e Number [address] Specimen to Pathology (11/11/2021 12:10 PM EDT)Only the most recent of3 results within the time period is included. Specimen Anatomical Collection Method Collection Time Receive d Time (Source) Location / / Volume Laterality AP Specimen 11/11/2021 12:10 11/11/2021 PM EDT 12:10 PM EDT Narrative [facility] LABORAT OR[facility] - 11/11/2021 12:10 PM EDT Specimen requisition ordered. ??Separate Pathology report to follow Jarett Cedillo MD PATHOLOGY/CYTOLOGY ORDERABLE S Performing Organization Address City/[facility]/[place] [address] Surgical Pathology Report (11/11/2021 11:49 AM EDT) Component Value Ref Test Analysis Performed At Patholo gist Range Method Time Signature Surgical [id number] ? Location: [facility]; [facility]; A [facility] Pathology KENN Report The signing pathologist has (i) examined the relevant preparation(s) for the [facility] specimen(s) and (ii) rendered or confirmed the diagnosis(es) . HOSPITAL LABORATORY . 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 (see Discussion) Electronically signed by: ?Rafael MUNOZ, Ana Kamara Verified: ??11/19/2021 11:01 ??Pathologist Performed at: ??-[facility] Dept. of Pathology, [place], [place] DISCUSSION Step levels were examined. SPECIMEN(S) SUBMITTED A - Right base of tongue, biopsy (1) B - LEFT base of tongue, biopsy (1) C - LEFT tonsil, biopsy (1) CLINICAL INFORMATION Oral pharyngeal cancer SPECIMEN PROCESSING A - Labeled/Fixative: Right base of tongue, formalin. Quantity/Size: Four, ranging from 0.4-0.6 cm in greatest dim ension. Tissue Description: Soft, friable mcneal-pink tissues. Sections/Processing: Submitted en toto ??in 1 cassette labeled A1. B - Labeled/Fixative: Left base of tongue, formalin. Quantity/Size: Five, ranging from 0.4-0.8 cm in greatest dim ension. Tissue Description: Soft, friable mcneal-pink tissues. Sections/Processing: Submitted en toto ??in 1 cassette labeled B1. C - Labeled/Fixative: Left tonsil, formalin. Quantity/Size: Multiple, ranging from 0.2-0.8 cm in greatest dimension. Tissue Description: Soft, friable mcneal-pink tissues. Sections/Processing: Submitted en toto ??in 2 cassettes labeled C1-C2. ??nrl Specimen (Source) Anatomical Collection Method Collection Time Re ceived Time Location / / Volume Laterality 11/11/2021 11:49 AM EDT Jarett Cedillo MD PATHOLOGY/CYTOLOGY ORDERABLE S Performing Organization Address City/State/ZIP [place] [address] DH OR Endoscopy (11/11/2021) Anatomical Region Laterality Modality Other Specimen (Source) Anatomical Location Collection Method / Collectio n Time Received Time / Laterality Volume 11/11/2021 Narrative 11/11/2021 12:00 AM EDT Photographs - Images Procedure Note Unknown - 11/11/2021Formatting of this n ote might be different from the original. Photographs - Images Unknown EA IMAGES IR Biopsy Lymph Node (Head/Neck) (11/05/2021 11:08 AM EDT) Anatomical Region Laterality Modality X-Ray Angiography Specimen (Source) Anatomical Location Collection Method / Collectio n Time Received Time / Laterality Volume Impressions 11/07/2021 10:36 AM EDT Technically successful fine-needle aspiration x3 of left level 2 lymph node. Thank you for letting us participate in the care of this patient. ??If you are a health care provider and have any questi ons regarding this report, please contact the number below. ??For patients who have questions please contact the health career services officer that requested your imaging first. ? Narrative 11/07/2021 10:36 AM EDT EXAMINATION: IR BIOPSY LYMPH NODE (HEAD/NECK) CLINICAL HISTORY: tonsil cancer with kno wn R neck adenopathy. ??Suspicious LEFT zone [address] and PET. need to ascertain etiology of LEFT neck adenopathy TECHNIQUE: Ultrasound-guided fine-needle aspiration of left level 2 lymph node. COMPARISON: CT neck October 09, 2021 FINDINGS: The procedure, its risks and benefits we re discussed with the patient who gave informed written consent. The left level 2 lymph node of concern, inferior medial to the left parotid tail was iden tified on ultrasound. Overlying skin was prepped and draped in usual sterile fash ion. Under ultrasound guidance, fine-needle aspiration x3 was performed with 25-gauge needles. Specimens were submitted to laboratory for evaluation. No immediate complications. Procedure Note Reba Coon MD - 11/07/2021Formatt ing of this note might be different from the original. EXAMINATION: IR BIOPSY LYMPH NODE (HEAD/ NECK) CLINICAL HISTORY: tonsil cancer with kno wn R neck adenopathy. Suspicious LEFT zone [address] and PET. need to ascertain etiology of LEFT neck adenopathy TECHNIQUE: Ultrasound-guided fine-needle aspiration of left level 2 lymph node. COMPARISON: CT neck October 09, 2021 FINDINGS: The procedure, its risks and benefits we re discussed with the patient who gave informed written consent. The left level 2 lymph node of concern, inferior medial to the left parotid tail was iden tified on ultrasound. Overlying skin was prepped and draped in usual sterile fash ion. Under ultrasound guidance, fine-needle aspiration x3 was performed with 25-gauge needles. Specimens were submitted to laboratory for evaluation. No immediate complications. IMPRESSION Technically successful fine-needle aspir ation x3 of left level 2 lymph node. Thank you for letting us participate in the care of this patient. If you are a health care provider and have any questi ons regarding this report, please contact the number below. For patients w ho have questions please contact the health career services officer that requested your imaging first. Kale Sy MD IMG IR ORDERABLES from Last 3 Months Insurance Payer Benefit Plan / Subscriber ID Effective Phone Address T [facility] Group Dates MEDICARE MEDICARE PART A [id number] 2002-Prese [id number] [place] [address] AAR SUPPLEMENT AAR SUPPLEMENT [id number] 2015-[place] [id number] [place] [address] Advance Directives Latest Code Status on File Code Status Date Activated Date Inactivated Comments Attempt Cardiopulmonary Resuscitation - 11/13/2021 8:46 AM 022 4:33 AM Inpatient Code Status decision made by: Patient Care Teams Septic Tank Setter Relationship Specialty Start Date End Date Amelia Gomes APRN PCP - General Family Medicine 10/17/[address] [place] [address]
--- OUTSIDE RECORDS SUMMARY | 2022-01-24 03:56 | XMS_ITS | Encounter Summary ---
:1935 Author Organization [facility] [place] [address] Care Team Providers Name Role Phone Amelia Gomes APRN Primary Care Provider [phone] Encounter Details Date Type Department Care Team Description 01/14/2022 Office Visit Radiation Oncology at [facility] Marito MD Tonsil cancer [address] RADIATION ONCOLOGY [place], [place] [phone] Social History Tobacco Use Types Packs/Day Years [...] place to sleep or slept in a detention (including now)? Sex Assigned at Date Recorded Not on file documented as of this encounter Last Filed Vital Signs Vital Sign Reading Time Taken Comments Blood Pressure 121/82 01/14/2022 4:33 PM EDT Pulse 76 01/14/2022 4:33 PM EDT Temperature 36.8 ??C (98.2 ??F) 01/14/2022 4:33 PM EDT Respiratory Rate 18 01/14/2022 4:33 PM EDT Oxygen Saturation 97% 01/14/2022 4:33 PM EDT Inhaled Oxygen Concentration - - Weight 85.2 kg (187 lb 12.8 oz) 01/14/2022 4:33 PM with shoes EDT Height - - Body Mass Index 27.72 01/13/2022 8:31 AM EDT documented in this encounter Progress Notes Marito Michel MD - 01/14/2022 4:15 PM EDT Images from the original note were not included. 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 Never smoker. Receiving definitive chemoradiotherapy on NRG HN009, Arm 4 ?? Details: ?? Presentation ? 86 year old male with minimal PMH, never smoker. In April of 2021 he noticed pain associated withhis posterior right oropharynx. It persisted, and he saw his PCP who referred him to Dr. Pena. A biopsy was performed by Dr. Pena on 08/28/21, which returned as a p16 (+) squamous cell carcinoma. He was referred to Dr. Cedillo, who he saw on 10/09/21. Further staging as noted below. ?? Staging & Therapy ? Tonsil, right biopsies 08/28/21: Non-keratinizing squamous cell carcinoma, p16 positive ?? CT HN w/ contrast 10/09/21: 2.5 cm irregular poorly marginated enhancing mass centered in the right palatine tonsil. It extends medially to involve the uvula and anteriorly it appears to involve the base of tongue. Posterolaterally and extends up to the prestyloid parapharyngeal space but does not involve the common or internal carotid arteries. The mass approaches but does not appear to involve the neurovascular bundle of the tongue. There is pathologic adenopathy in the right neck with lymph nodes as follows: 2.1 cm level 2A, 1.2 cm level 5,, 2.2 cm level 5, and 1.2 cm level 5 0.8 cm right lateral retropharyngeal lymph node. ?? PET-CT 10/09/21: 1. ??FDG avid soft tissue fullness in the right lateral pharyngeal wall, consistent with primary tonsillar malignancy. 2. ??FDG avid adenopathy in the right levels 2 and 5 region, and subcentimeter FDG avid lymph node in the right upper retropharyngeal space, consistent with cris metastases. 3. ??No distant sites of metastasis. ? Microlaryngoscopy with biopsy, Biopsy of left tonsil, Ultrasound-guided fine- needle aspirate level 2A lymph node, left neck 11/11/21: -Path: A - RIGHT base of tongue, biopsy: Squamous mucosa and minor salivary gland tissue, negative for malignancy B - LEFT base of tongue, biopsy: Tonsillary type tissue, negative for malignancy C - LEFT tonsil, biopsy: Microscopic focus of non-keratinizing squamous cell carcinoma with lymphovascular space invasion. D - FNA neck node: A rare cluster of highly atypical epithelioid cells is present in the cell block ??section; suspicious for metastatic carcinoma. Treatment: Intent: Curative/definitive Site: Tonsillar primary, involved nodes, elective cris basins Prescription: 70 Gy in 33 treatments Frequency: Once daily Technique: VMAT/IMRT Concurrent chemotherapy: Yes ONC BCA CHEMO (AMB) 12/09/2021 12/16/2021 CISplatin (Platinol) IV 83 mg 82 mg ONC BCA CHEMO (AMB) 12/23/2021 12/30/2021 CISplatin (Platinol) IV 82 mg 81 mg ONC BCA CHEMO (AMB) 01/06/2022 CISplatin (Platinol) IV 81 mg ONC BCA CHEMO (AMB) 01/13/2022 CISplatin (Platinol) IV 61 mg Treatment Plan Images: Treatment Progress: 57.24 Gy in 27 fractions Setup films checked and approved. Clinical Course: Interval History: Symptoms Intervention Pain Significant pain posterior oropharynx, R > L, rated as a 2 to 10 / 10 depending on oxycodoneuse. 5 - 10 mg Oxycodone every four hours. Did not tolerate Fentanyl patch. Secretions / Dryness High level dysgeusia, severe xerostomia. Using BSSW, Healios. Nutrition / G Tube Small volume by mouth, only water by mouth; using G tube for nutrition (5 feeds/day) Swallowing Function No issues Skin Mild pruritis neck Phytoplex GI N/V Occasional nausea, no vomiting Compazine Bowel Function Constipation Miralax Other Exam: No data found. Weight : 90.1 kg initial Change: 86.3 => 85.2 SKIN: mild skin erythema HEENT: confluent mucositis posterior oropharynx GI: g tube c/d/i Performance Status: KPS 50-60% ECOG 2 Ambulatory and capable of all selfcare but unable to carryout any work activities; up and about more than 50% of waking hours CTCAE TOXICITY GRADES (see below for knapp): Site Grade Skin 1 Xerostomia 3 Pharyngeal Mucositis 3 Dysphagia 3 Hoarseness 0 Impression/Plan: Impression: Increasing toxicity, mucositis prominent Plan: ?? Continue radiation therapy as planned. ?? Pain control: ?? Tylenol prn ?? Oxycodone 5-10 mg prn ?? Skin: topical cream prn ?? Mucositis: ?? Pain control: see above ?? Oral hygiene consisting of baking soda/salt rinse at least 8 times daily ?? Alimentation: director of occupational therapy following ?? Weight decreased, primarily G tube ?? GI: ?? NV: Mild nausea. Compazine prn ?? Bowels: Constipation. Miralax prn. No orders of the defined types were placed in this encounter. CTCAE v5.0 scales for reference Skin 0 1 2 3 4 No change from baseline Faint erythema or dry desquamation Moderate to brisk erythema; patchy moist desquamation mostly confined to skin folds & creases; moderate edema Moist desquamation in areas other than skin folds and creases; bleeding induced by minor trauma or abrasion Life threatening consequences; skin necrosis or ulceration of full thickness dermis; spontaneous bleeding; skin graft indicated Xerostomia 0 1 2 3 4 No change from baseline Symptomatic (dry or thick saliva) without significant dietary alteration Moderate sx: oral intake alterations (e.g. copious water, diet limited to purees or soft, moist foods) Inability to adequately aliment orally, TPN or PEG indicated NA Pharyngeal Mucositis: 0 1 2 3 4 No change from baseline Minimal symptoms with normal oral intake; mild pain but analgesics not indicated Moderate pain and analgesics indicated; altered oral intake; limiting instrumental ADLs Severe pain, unable to adequately aliment or hydrate orally; limiting self care ADLsLife threatening consequences; urgent intervention indicated Dysphagia 0 1 2 3 4 No change from baseline Symptomatic, able to eat regular diet Symptomatic and altered eating/swallowing Severely altered eating/swallowing; tube feeds, TPN or hospitalization indicated Life threateningconsequences; urgent intervention indicated Hoarseness 0 1 2 3 4 No change from baseline Mild or intermittent voice change; fully understandable, self-resolves Moderate or persistent voice change; may require occasional repetition but understandable on telephone; medical evaluation indicated Severe voice change including predominantly whispered speech NA ??? [employer] (N[facility]) [facility] ??? [employer] Commission on Cancer ([employer]) Accredited Cancer Program ??? [employer] (A[employer]) Accredited Radiation Oncology Program documented in this encounter Plan of Treatment Upcoming Encounters Date Type Specialty Care Team Description 01/26/2022 Infusion Hematology and Oncology 01/26/2022 Office Visit Hematology and Oncology Mirta Sy MD [facility] ONCOLOGY DEPT. [place], [place] [address] (Wo rk) 01/28/2022 Office Visit Radiation Oncology Chilango Michel MD [facility] RADIATION ONCSHANTEL [place], [place] [address] (Wo rk) 01/29/2022 Infusion Hematology and Oncology 02/05/2022 Infusion Hematology and Oncology documented as of this encounter Visit Diagnoses Diagnosis Tonsil cancer Malignant neoplasm of tonsil documented in this encounter Care Teams Mint Machine Operator Relationship Specialty Start Date End Date Amelia Gomes APRN PCP - General Family Medicine 10/17/[address] [place] [address] [address] [place] [address] documented as of this encounter
--- OUTSIDE RECORDS SUMMARY | 2022-01-24 03:56 | XMS_ITS | Encounter Summary ---
:[address] [facility] Address [address] [place] [address] Care Team Providers Name Role Phone Unavailable Primary Care Provider Unavailable Encounter Details Date Type Department Care Team Description 07/28/2006 Results Only [facility] - Geovanni Mueller MD conversion [address] [place] [phone] Social History Tobacco Use Types Packs/Day Years Used Date Never Assessed Sex Assigned at Date Recorded Not on file documented as of this encounter Plan of Treatment Not on filedocumented as of this encounter Procedures Procedure Name Priority Date/Time Associated Diagnosis Comme nts SURGICAL PATHOLOGY Routine 07/28/2006 0:00 EDT Re sults for this procedure are i n the results section. documented in this encounter Results SURGICAL PATHOLOGY (07/28/2006 0:00 EDT) Pathology Report: SURGICAL PATHOLOGY REPORT ROBISON A SUDARSHAN Reports generated via electronic interface contain britta ginal data; LAB however they are lacking the format of the original re port. Caution should be taken when reading/interpreting unfo rmatted reports. Name: ? PINO WONG ? Accession #: ? [id number] ? : ? 1935 (Age: 71) ??M ? Collect Date: ? 07/28/2006 ? Location: ? [facility] ? Receive Date: ? 007 ? Provider: SISSY JOHANSEN MD Copy to: SANTHOSH SPRAGUE MD ? Final Pathologic Diagnosis: ? Rectum, polypectomy: - Hyperplastic polyp. Document reviewed and electronically signed by: JENNYFER MCKEON [facility] Report ??Date: 07/30/2006 15:43 By the signature above, the attending physician certif ies that he/she has personally conducted a gross and/or microscopic examin ation of the described specimens and rendered or confirmed the above diagnosi s. Specimen(s) Received: ? Polyp rectum Clinical History: ? F/H colon Ca; diverticulosis; polyp Gross Description: ? Received in Hollande' s fixative labelled Judith and #1 ??rectal polyp are two 0.2 x 0.2 x 0.1 cm portions of mcneal soft tissue , which are entirely submitted in one cassette. ??(Dr. Overton)/[facility] End of Report Specimen Performing Organization Address City/State/ZIP Code Phon e Number [facility] [address] [place] [address] SERVICES [facility] [address] [place] [address] documented in this encounter Visit Diagnoses Not on filedocumented in this encounter
--- OUTSIDE RECORDS SUMMARY | 2022-01-24 03:56 | XMS_ITS | Encounter Summary ---
:1935 Author Organization [facility] [place] [address] Care Team Providers Name Role Phone MateoZaid simpsonAmeliamat Branch APRN Primary Care Provider [phone] Reason for Visit Reason Comments IV Medication Hydration Treatment/Therapy Plan Authorization (Routine) - Authorized Specialty Diagnoses / Procedures Referred By Contact Refer red To Contact Hematology and Oncology Diagnoses Tonsil cancer History of kidney stones Gilbert's syndrome Kale Sy MD [facility] Hem Onc Infusion Procedures , [facility] [address] [facility] [place], [place] ONCOLOGY DEPT. [id number] [place] [address] Referral ID Status Reason Start Date Expiration Date Visits V isits Requested Authorized [id number] Authorized 12/08/2021 02/25/2022 99 99 Encounter Details Date Type Department Care Team Description 01/16/2022 Infusion Hematology Oncology at [facility] lbert's syndrome; [facility] Tonsil cancer; [address] [place] [address] History of kidney stones [place], [place] [phone] Social History Tobacco Use [...] place to sleep or slept in a prison (including now)? Sex Assigned at Date Recorded Not on file documented as of this encounter Last Filed Vital Signs Vital Sign Reading Time Taken Comments Blood Pressure 140/70 01/16/2022 8:33 AM EDT Pulse 86 01/16/2022 8:33 AM EDT Temperature 37 ??C (98.6 ??F) 01/16/2022 8:33 AM EDT Respiratory Rate 16 01/16/2022 8:33 AM EDT Oxygen Saturation 99% 01/16/2022 8:33 AM EDT Inhaled Oxygen Concentration - - Weight 84 kg (185 lb 3 oz) 01/16/2022 8:33 AM EDT Height - - Body Mass Index 27.33 01/13/2022 8:31 AM EDT documented in this encounter Progress Notes Sepideh Nelson RN - 01/16/2022 8:30 AM EDT INFUSION THERAPY ADMINISTRATION NOTES DIAGNOSIS: H/N CA REASON FOR VISIT: Hydration SUBJECTIVE Pino reports that his pain feels well managed with taking the 10mg of Oxycodone every 4 hours. Hereports feeling the worst at night because he sometimes sleeps through his alarm and when he wakes up, his pain is worse and his mouth is very dry. Reported that this morning when he woke up he felt like his tongue was stuck in his mouth and felt that he couldn't breath but he states he could breathbut couldn't move his tongue. Once he rinsed his mouth with water that he kept at his bed side, he felt much better. His was worried and wanted him to be seen by a provider or nurse today. RN and n utritionist assessed Seferino with his and felt he was not experiencing any new changes. reports that he has been more tired and sleeping more but that is to be expected with his treatment. Gos not appear to be sedated or overly weak. was worried about his confusion but Seferino was able to remember conversations from earlier in the week with infusion nurse and seemed to be at baseline today. Seferino did report being on the verge of nausea all night but did not vomit. He had not taken any antiemetics this morning. Medicated with Zofran 8mg IV with hydration today with some relief. OBJECTIVE LAB DATA: N/A REACTIONS (DESCRIPTION, TIME, INTERVENTION AND EFFECTIVENESS)none ASSESSMENT Pino was awake, alert and he tolerated treatment well. Pt's port checked for good blood return and patency before use. Port Flushed with 20 ML NS and 500 units Heparin then deaccessed. Education on dry mouth management given to Seferino and by both RN and Gris Dawn. Educated on using the BSSW and biotine mouth wash more regularly. Also educated on using hard candies to suck on, keeping water near him to keep his mouth wet, and trying carbonated beverages like gingerale to help with his dry mouth. He tried swishing gingerale during his infusion and felt that was helpful. PLAN Return to clinic per routine. documented in this encounter Plan of Treatment Upcoming Encounters Date Type Specialty Care Team Description 01/26/2022 Infusion Hematology and Oncology 01/26/2022 Office Visit Hematology and Oncology Mirta Sy MD [facility] DR ONCOLOGY DEPT. [place], [place] [address] (Wo rk) 01/28/2022 Office Visit Radiation Oncology Chilango Michel MD [facility] RADIATION ONCSHANTEL [place], [place] [address] (Wo rk) 01/29/2022 Infusion Hematology and [...] Site ondansetron (pf) (Zofran) (2 mg/mL) Given 01/16/2022 8:54 AM EDT 8 mg injection 8 mg 8 mg, Intravenous, ONCE, 1 dose, On Wed01/16/22 at 0900 sodium chloride 0.9% infusion New Bag 01/16/2022 8:50 AM EDT 1,000 mLs 1,000 mL (1 L), Intravenous, ONCE, 1 dose, On Wed01/16/22 at 0900, Administer over 2 hours documented in this encounter Care Teams Patient Safety Manager Relationship Specialty Start Date End Date Amelia Gomes APRN PCP - General Family Medicine 10/17/[address] [place] [address] [address] [place] [address] documented as of this encounter
--- OUTSIDE RECORDS SUMMARY | 2022-01-24 03:56 | XMS_ITS | Encounter Summary ---
:1935 Author Organization [facility] [place] [address] Care Team Providers Name Role Phone Zaid Gomesmat Branch APRN Primary Care Provider [phone] Reason for Visit Reason Comments IV Medication Hydration + anti-emetics Treatment/Therapy Plan Authorization (Routine) - Authorized Specialty Diagnoses / Procedures Referred By Contact Refer red To Contact Hematology and Oncology Diagnoses Tonsil cancer History of kidney stones Gilbert's syndrome Kale Sy MD [facility] Hem Onc Infusion Procedures , [facility] [address] [facility] [place], [place] ONCOLOGY DEPT. [id number] [place] [address] Referral ID Status Reason Start Date Expiration Date Visits V isits Requested Authorized [id number] Authorized 12/08/2021 02/25/2022 99 99 Encounter Details Date Type Department Care Team Description 01/21/2022 Infusion Hematology Oncology at [facility] lbert's syndrome; [facility] Tonsil cancer; [address] [place] [address] History of kidney stones [place], [place] [phone] Social History Tobacco Use [...] place to sleep or slept in a [facility] (including now)? Sex Assigned at Date Recorded Not on file documented as of this encounter Last Filed Vital Signs Vital Sign Reading Time Taken Comments Blood Pressure 114/53 01/21/2022 2:48 PM EDT Pulse 93 01/21/2022 2:48 PM EDT Temperature 36.4 ??C (97.5 ??F) 01/21/2022 2:48 PM EDT Respiratory Rate 16 01/21/2022 2:48 PM EDT Oxygen Saturation 97% 01/21/2022 2:48 PM EDT Inhaled Oxygen Concentration - - Weight 85.2 kg (187 lb 12.8 oz) 01/21/2022 2:48 PM EDT Height 175.3 cm (5' 9.02) 01/21/2022 2:48 PM EDT Body Mass Index 27.72 01/21/2022 2:48 PM EDT documented in this encounter Progress Notes Mini Anthony RN - 01/21/2022 3:00 PM EDT INFUSION THERAPY ADMINISTRATION NOTES DIAGNOSIS: H/N CA REASON FOR VISIT: Hydration and antiemetics SUBJECTIVE Pino reports nausea today, he last took zofran at 0130 this morning. He rates his pain 2/10 today, he is managing his pain with oxycodone every 4 hours, last dose at 1330. He was able to complete two tube feeds today without issue. He continues to have a positive attitude. OBJECTIVE LAB DATA: N/A REACTIONS (DESCRIPTION, TIME, INTERVENTION AND EFFECTIVENESS)none ASSESSMENT Pino was awake, alert and he tolerated treatment well. Pt's port checked for good blood return and patency before use. Port Flushed with 20 ML NS and 500 units Heparin, remains accessed for hydration tomorrow PLAN Return to clinic tomorrow. documented in this encounter Plan of Treatment Upcoming Encounters Date Type Specialty Care Team Description 01/26/2022 Infusion Hematology and Oncology 01/26/2022 Office Visit Hematology and Oncology Mirta Sy MD [facility] [address] ONCOLOGY DEPT. [place], [place] [address] (Wo rk) 01/28/2022 Office Visit Radiation Oncology Chilango Michel MD [facility] RADIATION ONCOLO [place], [place] [address] (Wo rk) 01/29/2022 Infusion Hematology [...] Rate Site dexAMETHasone (Decadron) (10 mg/mL) Given 01/21/2022 3:03 PM EDT 5 mg injection 5 mg 5 mg, Intravenous, ONCE, 1 dose, On Wed01/21/22 at 1515 ondansetron (pf) (Zofran) (2 mg/mL) injection 8 Given 01/21/2022 3:08 PM EDT 8 mg mg 8 mg, Intravenous, ONCE, 1 dose, On Wed01/21/22 at 1515 sodium chloride 0.9% infusion New Bag 01/21/2022 2:59 PM EDT 1,000 mLs 1,000 mL (1 L), Intravenous, ONCE, 1 dose, On Wed01/21/22 at 1515, Administer over 2 hours documented in this encounter Care Teams Slp Relationship Specialty Start Date End Date Amelia Gomes APRN PCP - General Family Medicine 10/17/[address] [place] [address] documented as of this encounter
--- OUTSIDE RECORDS SUMMARY | 2022-01-24 03:56 | XMS_ITS | Encounter Summary ---
:1935 Author Organization [facility] Address [address] [place] [address] Care Team Providers Name Role Phone Unknown, Provider MD Primary Care Provider Encounter Details Date Type Department Care Team Description 08/29/2021 Lab Requisition [facility] Orlando Pena MD Encounter for other Pathology [address] general examination Laboratory Medicine [facility] [address] [facility] [phone] [place] [address] (Work) [phone] Social History Tobacco Use Types Packs/Day Years Used Date Never Assessed Sex Assigned at Date Recorded Not on file documented as of this encounter Plan of Treatment Not on filedocumented as of this encounter Procedures Procedure Name Priority Date/Time Associated Diagnosis Comme nts SURGICAL PATHOLOGY Today 08/28/2021 12:00 Encounter for othe r Results for this EDT general examination procedur e are in the results section. documented in this encounter Results SURGICAL PATHOLOGY (08/28/2021 12:00 EDT) Note to Patient The following [facility] MEDICAL pathology results have CENTER been interpreted by LABORATORY your pathologist and SERVICES may be available to you before your health provider has had the opportunity to review them. Please allow time for your provider to receive these results and explore management options, if applicable. Final Diagnosis A. 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 See comment. CENTER - Lymphovascular invasion identified. LAB ORATORY SERVICES Diagnosis Comment Immunostaining for p16 (P16 ([id number], Gay) ) was performed on block (A1) and shows positive (greater than 70%) staining in the tumor cells. This staining is a surrogate for HPV testing and a positive [facility] MEDICAL result is often seen with t umors showing improved outcomes. In addition, a stain for endothelial cells was performed to further evaluate possible lymphovascular invasion. The ERG ([id number], Gay) sta CENT ER in highlights the endothelia l cells and confirms the presence of intravascular tumor. Database Development Project Manager slides of this case were reviewed at the intradepartmental consultation conference. LABORATORY SERVICES NOTE: One or more of the re agents used in immunoperoxidase testing in this case may not have been cleared or approved by the U.S. Food and Drug Administration (FDA). The FDA has determined that such cl earance or approval is not n ecessary. These tests are used for clinical purposes. They should not be regarded as investigational or for research. These reagents' performance characteristics have been de termined by [facility] and/or by the referring laboratory. The positive and negative controls worked appropriately. If immunoperoxidase staining has been performed on alcoh ol fixed cytology specimens, which has not been fully validated, the assays should be interpreted with caution and correlated with clinical data. This laboratory is certified under the Clinical Laborato ry Improvement Amendments of 1988 (CLIA-88) as qualified to perform high complexity clinical laboratory testing.? Attestation By the signature below, [facility] tronically the attending physician CENTER sign ed by Jacky, certifies that they LABORATORY Corrine gutierrez MD on have 1) personally SERVICES 09/04/2021 at 1215 conducted a gross and/or microscopic examination of the described specimen(s), and/or personally interpreted the results of laboratory testing of the described specimen(s), and 2) personally rendered or confirmed the above diagnosis. Clinical History Nonsmoker, symptoms [facility] MEDICAL present 3 - 4 months, CENTER possible extension to LABORATORY tongue base; clinical SERVICES diagnosis code: J35.8 Gross Description A. [facility] MEDICAL Received in formalin scooter d with proper patient identification (initials L, C) and R tonsil are mcneal-carroll tissue fragments aggregating 0.8 x 0.7 x 0.3 cm. Entirely submitted in A1. [facility] NOEMI MISTRY(ASCP) 08/29/2021 10:17 SER VICES Performing Lab [facility] Scanned Images [facility] Specimen Tissue - Specimen from tonsil (specimen) Performing Organization Address City/State/ZIP Code Phon e Number [facility] [address] [place] [address] SERVICES documented in this encounter Visit Diagnoses Diagnosis Encounter for other general examination documented in this encounter Care Teams Furnace Helper Relationship Specialty Start Date End Date Unknown, Provider, PCP - General 02/01/15 documented as of this encounter
--- OUTSIDE RECORDS SUMMARY | 2022-01-24 03:56 | XMS_ITS | Encounter Summary ---
:1935 Author Organization [facility] [place] [address] [place] [address] Care Team Providers Name Role Phone MateoZaid simpsonAmeliamat Branch APRN Primary Care Provider [phone] Encounter Details Date Type Department Care Team Description 01/16/2022 [facility] [address] [phone] Social History Tobacco Use [...] place to sleep or slept in a correction (including now)? Sex Assigned at Date Recorded Not on file documented as of this encounter Progress Notes Kaley Lee, RN - 01/16/2022 2:00 PM EDT RESEARCH NURSE OFFICE NOTE 01/16/22 Study Number:[id number] Description:Comparing high-dose cisplatin every three weeks to low-dose cisplatin weekly when combined with radiation for patients with advanced head and neck cancer. Randomized to weekly low dose cisplatin SUBJECTIVE Pino Wong presented to hem-onc clinic for hydration. Patient's main complaint is dry mouth more at night and nausea. The adverse events on RN AE table were reviewed and updated accordingly. STUDY ASSESSMENTS COMPLETED Patient states he's not feeling so good. Increased nausea with some vomiting. He is not eating anything by mouth. Only sips of water. He has morales laly at table,but is using it to swish and spit to get rid of thick secretions & taste in his mouth. Has stoped saltwater baking soda rinses, stating he is using the Healios instead. He continues to stay away from the BMX because the tase gags him and he didn feel it helped his pain. He is using the nystatin for the thrush infection and mostly swishes and spits that. He reports some thick secretions, with some difficulty in expectoration this morning with dryness inhis throat which led to some difficulty with breathing . Pain is managed by oxycone 10mg liquid every 4 hours in G-tube. He stopped fentayl patcha few days ago stating he did not tolerate it well it made me shakey. He reports constipation is controlled with Miralax [...] relieved by the cream we supply. He skin is red but no desquamation. He is applying the Phytoplex moisturizing cream we provided. He also saw Landry our Block Feeder today. reported to Landry some confusion, mostly in the evening. I visited with who was waiting for him. She confirmed this and elaborated that it is more of forgetfulness, like forgetting that he needs to come for appointments. She denies that he is having anyhallucinations or acting in a confused manner. She said that he just gets his days mixed up because he comes here so often. Education I shared with Pt's of Dr Sy' recommendation that she give him only 7.5 mg oxycodone at supper (evening dose ) and then the full 10 mg when he goes to bed. She said that she would rather he be comfortable and stay with 10. She denies that he is sedated. She does worry that he gets weak at times. He uses a wheel chair when he comes to the clinic for this reason. But he doesn't have to walk far in their trailer and he hasn't fallen. We also addressed the increased nausea and that the fact that he occasionally takes the oxycodone oanh empty stomach. She will try to time the feedings with oxycodone. She is giving Zofran via gtube. We talked about a humidifier to use especially at night to help with dry mouth. She plans to get one. I also shared Dr Sy' recommendation of canola oil on spray bottle. Flavor with mint leave or a few drops of vanilla or anise oil. Shake prior to each use. Hecan gently spritz this canola in his mouth as needed . They were instructed to call clinic with any questions or concerns. For weekend coverage while our clinic is closed, the patient and his were instructed to call [facility] at [phone] and ask for the online trader radiation or medical oncologist. They verbalized understanding. Surveys: None today . PLAN 1. Subject agrees to continue on study HN009 per protocol. 2.. Next Appt with Dr Sy 01/19 with labs prior and weekly chemo Saturday 01/20 Patient verbalizes understanding of, and agreement with, plan. Advised to contact this office for any questions/concerns, as well as for any new or worsening symptoms. documented in this encounter Plan of Treatment Upcoming Encounters Date Type Specialty Care Team Description 01/26/2022 Infusion Hematology and Oncology 01/26/2022 Office Visit Hematology and Oncology Mirta Sy MD [facility] DR ONCOLOGY DEPT. [place], [place] [address] (Wo rk) 01/28/2022 Office Visit Radiation Oncology Chilango Michel MD [facility] RADIATION ONCOLO [place], [place] [address] (Wo rk) 01/29/2022 Infusion Hematology and Oncology 02/05/2022 Infusion Hematology and Oncology documented as of this encounter Visit Diagnoses Not on filedocumented in this encounter Care Teams Scourer Relationship Specialty Start Date End Date Amelia Gomes, TERRANCE PCP - General Family Medicine 10/17/[address] [place] [address] documented as of this encounter
--- OUTSIDE RECORDS SUMMARY | 2022-01-24 03:56 | XMS_ITS | Encounter Summary ---
:1935 Author Organization [facility] [address] Care Team Providers Name Role Phone Amelia Gomes APRN Primary Care Provider [phone] Encounter Details Date Type Department Care Team Description 01/19/2022 [facility] Tonsil cancer [address] HEMATOLOGY [place] [phone] ONCOLOGY [phone] [place], [place] [address] (Wo rk) Social History Tobacco Use Types [...] documented as of this encounter Progress Notes Page, Gris Ward, RD - 01/19/2022 1:30 PM EDT Nutrition Note Spoke with patient and his Angelina after his appointment with Dr. Sy today. He is now in hisfinal week of concurrent chemoradiation therapy for tonsil cancer. Patient is no longer eating or drinking due to taste changes, pain with PO intake, and dry mouth. He complains that he has an almost constant nausea now. Dr. Sy prescribed Zofran ODT today. His IV hydration and antiemetics have been increased in frequency to daily as well (dexamethasone added aswell). Patient reports his tube feeds are running at a slow rate via gravity bags. He continues to use Healios glutamine supplement twice daily. Patient is using nystatin for thrush. Wt Readings from Last 10 Encounters: 01/19/22 83.5 kg (184 lb) 01/16/22 84 kg (185 lb 3 oz) 01/15/22 84 kg (185 lb 3.2 oz) 01/14/22 85.2 kg (187 lb 12.8 oz) 01/13/22 83.5 kg (184 lb 1.4 oz) 01/12/22 83.5 kg (184 lb) 01/07/22 86.3 kg (190 lb 3.2 oz) 01/06/22 84.6 kg (186 lb 6.4 oz) 01/05/22 84.2 kg (185 lb 9.6 oz) 12/31/21 87 kg (191 lb 12.8 oz) 12/09/21 194# BMI 27.16 Patient's weight has been fairly stable for the past two weeks. He has had some weight variance throughout treatment 10# below weight at start of treatment 6 weeks ago (5.2% body weight) - significant Diet: No PO intake (was taking sips of water only for the past few weeks, now only spritzing mouth with spray bottle of water). Enteral: Patient is taking 4-5 cartons Nutren 1.5 per day. He had been taking 5 cartons/day consistently for several weeks (this provides 1875 kcals, 85 g protein, 955 ml water). He takes 1 liter of free water through g-tube daily. I did not check the balloon today. Medications: Zofran ODT, oxycodone, BMX, miralax daily, compazine prn, saw palmetto, krill oil, tylenol prn, simvastatin, allopurinol. 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 Last cisplatin dose is tomorrow 01/20. Final RT is 01/22. ?? Labs on 01/19: WBC 1.96, ANC 1260, Hgb 11.1, Anup 8/7, Mg 1.8, LFTs wnl, bilirubin wnl, Alb 2.9, BUN 23, Creat 1.0 Nutrition Problem: Swallowing difficulty/inadequate PO intake related to mucositis secondary to concurrent HN cancer treatment as evidenced by reliance on g-tube feeds for 100% calorie and protein needs. ?? Ongoing/unresolved ?? Estimated needs based on 83.5 [id number] kcals (25-30 kcal/kg) 84-126 g protein (1-1.5 g/kg) 1 ml/kcal fluids Recommendations: * Try to increase back to 5 cartons Nutren 1.5 per day to provide 1875 kcals, 85 g protein, 955 ml water. Continue 1 liter of free water through g-tube daily. * Daily hydration with anti-emetic and dexamethasone this week per Dr. Sy. * Encouraged running enteral feeds slowly to help with nausea. Patient is using gravity bags. Will check in with patient on 01/23 documented in this encounter Plan of Treatment Upcoming Encounters Date Type Specialty Care Team Description 01/26/2022 Infusion Hematology and Oncology 01/26/2022 Office Visit Hematology and Oncology Mirta Sy MD [facility] DR ONCOLOGY DEPT. [place], [place] [address] (Wo rk) 01/28/2022 Office Visit Radiation Oncology Chilango Michel MD [facility] RADIATION ONCOLO [place], [place] [address] (Wo rk) 01/29/2022 Infusion Hematology and Oncology 02/05/2022 Infusion Hematology and Oncology documented as of this encounter Visit Diagnoses Diagnosis Tonsil cancer Malignant neoplasm of tonsil documented in this encounter Care Teams Java Swing Developer Relationship Specialty Start Date End Date Amelia Gomes APRN PCP - General Family Medicine 10/17/20 [address] [place] [address] documented as of this encounter
--- OUTSIDE RECORDS SUMMARY | 2022-01-24 03:56 | XMS_ITS | Encounter Summary ---
:1935 Author Organization [facility] Address [place] [address] Care Team Providers Name Role Phone Amelia Gomes APRN Primary Care Provider [phone] Encounter Details Date Type Department Care Team Description 01/21/2022 [facility] Tonsil cancer [address] [facility] RADIATION ONCOLOGY [facility] [phone] Social History Tobacco Use Types Packs/Day Years [...] documented as of this encounter Progress Notes Wili Barrow MD - 01/21/2022 4:15 PM EDT Images from the original note were not included. [facility] Medicine Radiation Oncology Radiation Oncology On-treatment Visit [...] 61 mg Treatment Plan Images: Treatment Progress: 70 Gy in 33 fractions Setup films checked and approved. See Aria for details. Clinical Course: Interval History: Symptoms Intervention Pain [...] using G tube for nutrition (5 feeds/day) Daily hydration ongoing Swallowing Function No issues Skin Mild pruritis neck Phytoplex GI N/V Occasional nausea, no vomiting Compazine Bowel Function Constipation Miralax Other Exam: Vitals 01/21/2022 BP 114/53 BP Location Right arm Pulse 93 Temp 97.5 Resp 16 Height (Chadian) 69.016 Height (Metric) 175.3 cm Weight (Chadian) 187 lbs 13 oz Weight (Metric) 85.186 kg BMI (Calculated) 27.72 kg/m2 Pulse Oximetry 97 O2 Flow Rate (L/min) O2 Device RA BSA 2.04 Weight : 90.1 kg initial Change: 86.3 => 85.2 => 85.1 SKIN: mild skin erythema HEENT: confluent mucositis [...] Impression: Increasing toxicity, mucositis prominent Plan: ?? Completes RT today. Ongoing daily treatment visits for clinical checks and IV hydration are scheduled for the next 2 weeks. ?? Pain control: ?? Tylenol prn ?? Oxycodone 5-10 mg prn ?? Skin: topical cream prn ?? Mucositis: ?? Pain control: see above ?? Oral hygiene consisting of baking soda/salt rinse at least 8 times daily ?? Alimentation: billiard parlor manager following ?? Weight decreased, primarily G tube ?? Continue daily IVF ?? GI: ?? NV: Mild nausea. Compazine [...] predominantly whispered speech NA ??? National Cancer [employer] (NCI) Comprehensive Cancer Center ??? [employer] Commission on Cancer (ACS López) Accredited Cancer Program ??? [employer] (ACR) Accredited Radiation Oncology Program documented in this encounter Plan of Treatment Upcoming Encounters Date Type Specialty Care Team Description 01/26/2022 Infusion Hematology and Oncology 01/26/2022 Office Visit Hematology and Oncology Mirta Sy MD [facility] ONCOLOGY DEPT. [place], [place] [address] (Wo rk) 01/28/2022 Office Visit Radiation Oncology Chilango Michel MD [facility] RADIATION ONCOLO [place], [place] [address] (Wo alondra) 01/29/2022 Infusion Hematology and Oncology 02/05/2022 Infusion Hematology and Oncology documented as of this encounter Visit Diagnoses Diagnosis Tonsil cancer Malignant neoplasm of tonsil documented in this encounter Care Teams Middle School Director Relationship Specialty Start Date End Date Amelia Gomes APRN PCP - General Family Medicine 10/17/[address] [place] [address] documented as of this encounter
--- OUTSIDE RECORDS SUMMARY | 2022-01-24 03:56 | XMS_ITS | Encounter Summary ---
:1935 Author Organization [facility] [place] [address] Care Team Providers Name Role Phone MateoZaid simpsonAmeliamat Branch APRN Primary Care Provider [phone] Reason for Visit Reason Comments IV Medication Hydration + antiemetics Treatment/Therapy Plan Authorization (Routine) - Authorized Specialty Diagnoses / Procedures Referred By Contact Refer red To Contact Hematology and Oncology Diagnoses Tonsil cancer History of kidney stones Gilbert's syndrome Kale Sy MD [facility] Hem Onc Infusion Procedures , [facility] [address] [place], [place] ONCOLOGY DEPT. [address] [place] [address] Referral ID Status Reason Start Date Expiration Date Visits V isits Requested Authorized [id number] Authorized 12/08/2021 02/25/2022 99 99 Encounter Details Date Type Department Care Team Description 01/22/2022 Infusion Hematology Oncology at [facility] lbert's syndrome; [facility] Tonsil cancer; [address] [place] [address] History of kidney stones [place], [place] [phone] Social History Tobacco Use [...] to sleep or slept in a senior care (including now)? Sex Assigned at Date Recorded Not on file documented as of this encounter Last Filed Vital Signs Vital Sign Reading Time Taken Comments Blood Pressure 159/82 01/22/2022 8:22 AM EDT Pulse 84 01/22/2022 8:22 AM EDT Temperature 36.8 ??C (98.2 ??F) 01/22/2022 8:22 AM EDT Respiratory Rate 18 01/22/2022 8:22 AM EDT Oxygen Saturation 99% 01/22/2022 8:22 AM EDT Inhaled Oxygen Concentration - - Weight 84.8 kg (187 lb) 01/22/2022 8:22 AM EDT Height 175.3 cm (5' 9.02) 01/22/2022 8:22 AM EDT Body Mass Index 27.6 01/22/2022 8:22 AM EDT documented in this encounter Progress Notes Mini Anthony RN - 01/22/2022 8:30 AM EDT INFUSION THERAPY ADMINISTRATION NOTES DIAGNOSIS: H/N CA REASON FOR VISIT: Hydration and antiemetics SUBJECTIVE Pino still has nausea today, he last took zofran at 0300 this morning. He rates his pain 2/10 today, he is managing his pain with oxycodone every 4 hours, next dose is due at 1000. He has his final radiation today, he's looking forward to being able to begin the recovery process. OBJECTIVE LAB DATA: N/A REACTIONS (DESCRIPTION, TIME, INTERVENTION AND EFFECTIVENESS)none ASSESSMENT Pino was awake, alert and he tolerated treatment well. Pt's port checked for good blood return and patency before use. Port Flushed with 20 ML NS and 500 units Heparin, he requested to have his portde-accessed today. PLAN Return to clinic tomorrow. documented in this encounter Plan of Treatment Upcoming Encounters Date Type Specialty Care Team Description 01/26/2022 Infusion Hematology and Oncology 01/26/2022 Office Visit Hematology and Oncology Mirta Sy MD [facility] DR ONCOLOGY DEPT. [place], [place] [address] ( alondra) 01/28/2022 Office Visit Radiation Oncology Chilango Michel MD [facility] RADIATION ONCOLO [place], [place] [address] (Wo rk) 01/29/2022 Infusion Hematology [...] Rate Site dexAMETHasone (Decadron) (10 mg/mL) Given 01/22/2022 8:33 AM EDT 5 mg injection 5 mg 5 mg, Intravenous, ONCE, 1 dose, On Mickie 01/22/22 at 0900 ondansetron (pf) (Zofran) (2 mg/mL) injection 8 Given 01/22/2022 8:38 AM EDT 8 mg mg 8 mg, Intravenous, ONCE, 1 dose, On Mickie 01/22/22 at 0900 sodium chloride 0.9% infusion New Bag 01/22/2022 8:38 AM EDT 1,000 mLs 1,000 mL (1 L), Intravenous, ONCE, 1 dose, On Mickie 01/22/22 at 0900, Administer over 2 hours documented in this encounter Care Teams Nutritional Services Host Relationship Specialty Start Date End Date Amelia Gomes APRN PCP - General Family Medicine 10/17/[address] [place] [address] documented as of this encounter
--- OUTSIDE RECORDS SUMMARY | 2022-01-24 03:56 | XMS_ITS | Encounter Summary ---
:1935 Author Organization [facility] [place] [address] Care Team Providers Name Role Phone MateoZaid simpsonAmeliamat Branch APRN Primary Care Provider [phone] Encounter Details Date Type Department Care Team Description 01/22/2022 Travel Social History Tobacco Use Types Packs/Day [...] place to sleep or slept in a care home (including now)? Sex Assigned at Date Recorded Not on file documented as of this encounter Plan of Treatment Upcoming Encounters Date Type Specialty Care Team Description 01/26/2022 Infusion Hematology and Oncology 01/26/2022 Office Visit Hematology and Oncology Mirta Sy MD [facility] DR ONCOLOGY DEPT. [place], [place] [address] (Wo rk) 01/28/2022 Office Visit Radiation Oncology Chilango Michel MD [facility] RADIATION ONCOLO [place], [place] [address] (Wo rk) 01/29/2022 Infusion Hematology and Oncology 02/05/2022 Infusion Hematology and Oncology documented as of this encounter Visit Diagnoses Not on filedocumented in this encounter Care Teams Youth Associate Relationship Specialty Start Date End Date Amelia Gomes APRN PCP - General Family Medicine 10/17/[address] [place] [address] documented as of this encounter
--- OUTSIDE RECORDS SUMMARY | 2022-01-24 03:56 | XMS_ITS | Encounter Summary ---
:1935 Author Organization [facility] Address [address] [place] [address] Care Team Providers Name Role Phone Unknown, Provider Primary Care Provider Encounter Details Date Type Department Care Team Description 08/20/2021 Lab Requisition [facility] Outr Resulting Lab, Pathology & Laboratory Provider [facility] [address], [place] [address] Social History Tobacco Use Types Packs/Day Years Used Date Never Assessed Sex Assigned at Date Recorded Not on file documented as of this encounter Plan of Treatment Not on filedocumented as of this encounter Procedures Procedure Name Priority Date/Time Associated Diagnosis Comme nts COVID-19 TEST UVC Today 08/19/2021 14:10 LAB PCR EDT COVID-19 TESTING Routine 08/19/2021 14:10 Results for this EDT procedure are i n the results section. documented in this encounter Results COVID-19 TEST [facility] PCR (08/19/2021 14:10 EDT) Specimen Swab Performing Organization Address City/State/ZIP Code Phon e Number [facility] [address] [place] [address] SERVICES COVID-19 TESTING (08/19/2021 14:10 EDT) COVID-19 rt-PCR Negative Negative [facility] Result Comment: CENTER [facility] This test has not been FDA c leared or approved. This test has been authorized by FDA under an EUA for use by authorized laboratories. This test has been authorized only for detection of nucleic acid fro SERVICES m 2019-nCoV, not for any oth er viruses or pathogens. This test is only authorized for the duration of the declaration that circumstances exist justifying the authorization of emergency use of in vitro d iagnostic tests for detectio n and/or diagnosis of 2019-nCoV under section 564(b)(1) of Act, 21 U.S.C ?? 360bbb-3(b) (1), unless the authorization is terminated or revoked sooner. Negative results do not prec lude 2019-nCoV infection and should not be used as the sole basis for treatment or other patient management decisions. Negative results must be combined with clinical observa tions, patient history, and epidemiological informatio n. Testing was performed using the boom SARS-CoV-2 assay ([employer] on the Boom 6800 System Performing Lab Boom 6800 [facility] Lab [facility] SERVICES Specimen Swab Performing Organization Address City/State/ZIP Code Phon e Number [facility] [address] [place] [address] SERVICES documented in this encounter Visit Diagnoses Not on filedocumented in this encounter Care Teams Principal Gifts Officer Relationship Specialty Start Date End Date Unknown, Provider, PCP - General 02/01/15 documented as of this encounter
--- OUTSIDE RECORDS SUMMARY | 2022-01-24 03:56 | XMS_ITS | Encounter Summary ---
:1935 Author Organization [facility] [place] [address] Care Team Providers Name Role Phone Amelia Gomes Sarina CARLOS Primary Care Provider [phone] Encounter Details Date Type Department Care Team Description 01/16/2022 Orders Only Radiation Oncology a t [facility] Marito Michel MD Tonsil cancer [facility] [place] [address] RADIATION ONCOLOGY [phone] [place], [place] [address] (Wo rk) Social History Tobacco [...] place to sleep or slept in a long term (including now)? Sex Assigned at Date Recorded Not on file documented as of this encounter Plan of Treatment Upcoming Encounters Date Type Specialty Care Team Description 01/26/2022 Infusion Hematology and Oncology 01/26/2022 Office Visit Hematology and Oncology Mirta Sy MD [facility] ONCOLOGY DEPT. 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
--- OUTSIDE RECORDS SUMMARY | 2022-01-24 03:56 | XMS_ITS | Encounter Summary ---
:1935 Author Organization [facility] [place] [address] Care Team Providers Name Role Phone Amelia Gomes Sarina CARLOS Primary Care Provider [phone] Encounter Details Date Type Department Care Team Description 01/13/2022 External Results Pharmacy Kale Sy MD [facility] [place] [address] ONCOLOGY DEPT. [phone] [place], [place] [address] (Wo rk) Social History Tobacco [...] place to sleep or slept in a halfway (including now)? Sex Assigned at Date Recorded Not on file documented as of this encounter Plan of Treatment Upcoming Encounters Date Type Specialty Care Team Description 01/26/2022 Infusion Hematology and Oncology 01/26/2022 Office Visit Hematology and Oncology Mirta Sy MD [facility] DR ONCOLOGY DEPT. [place], [place] [address] (Wo rk) 01/28/2022 Office Visit Radiation Oncology Chilango Michel MD [facility] RADIATION ONCOLO [place], [place] [address] (Wo rk) 01/29/2022 Infusion Hematology and Oncology 02/05/2022 Infusion Hematology and Oncology documented as of this encounter Procedures Procedure Name Priority Date/Time Associated Diagnosis Comme nts CLINICAL TRIAL SCAN Routine 01/13/2022 CLINICAL TRIAL SCAN Routine 01/13/2022 documented in this encounter Results Scan Doc: Clinical Trial (01/13/2022) Narrative This result has an attachment that is no t available. Kale Sy MD MEDIA MGR SCAN EXT ORDR/RSLT Scan Doc: Clinical Trial (01/13/2022) Narrative This result has an attachment that is no t available. Kale Sy MD MEDIA MGR SCAN EXT ORDR/RSLT documented in this encounter Visit Diagnoses Not on filedocumented in this encounter Care Teams Telephonic Nurse Case Manager Relationship Specialty Start Date End Date Amelia Gomes APRN PCP - General Family Medicine 10/17/[address] [place] [address] documented as of this encounter
--- OUTSIDE RECORDS SUMMARY | 2022-01-24 03:56 | XMS_ITS | Encounter Summary ---
:1935 Author Organization [facility] [place] [address] Care Team Providers Name Role Phone MateoHayde simpsonleonarda Branch APRN Primary Care Provider [phone] Reason for Visit Reason Comments Chemotherapy Week 7 Cisplatin Encounter Details Date Type Department Care Team Description 01/20/2022 Infusion Hematology Oncology at [facility] Tonsil cancer [address] [place] [phone] Social History Tobacco Use Types [...] place to sleep or slept in a alf (including now)? Sex Assigned at Date Recorded Not on file documented as of this encounter Last Filed Vital Signs Vital Sign Reading Time Taken Comments Blood Pressure 159/79 01/20/2022 8:27 AM EDT Pulse 91 01/20/2022 8:27 AM EDT Temperature 36.7 ??C (98.1 ??F) 01/20/2022 8:27 AM EDT Respiratory Rate 18 01/20/2022 8:27 AM EDT Oxygen Saturation 96% 01/20/2022 8:27 AM EDT Inhaled Oxygen Concentration - - Weight 83.5 kg (184 lb) 01/20/2022 8:27 AM EDT Height 175.3 cm (5' 9.02) 01/20/2022 8:27 AM EDT Body Mass Index 27.16 01/20/2022 8:27 AM EDT documented in this encounter Progress Notes Sepideh Nelson RN - 01/20/2022 8:30 AM EDT INFUSION THERAPY ADMINISTRATION NOTES 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 REASON FOR VISIT: To receive planned therapy. SUBJECTIVE: Pino is reporting that he feels the same as yesterday. He feels that he got behind onhis pain medication schedule and feels he has not been able to catch up again. He has been taking the Oxycodone as ordered by Dr. Sy and has been taking the ODT Zofran as well. He reports last taking the Zofran at 5:30am. He is due for Oxycodone again around 9:30am and will be administering for him. OBJECTIVE: VSS. Weight stable. LAB DATA: From 01/19/22 WBC 1.96, H/H 11.1/32.8, Plt Ct 129, ANC 1.26, BUN/Cr 23/1.0, CA++ 8.7, MG++1.8 IV ACCESS: Port accessed without difficulty. Flushes readily with brisk blood return. RN discussed with Seferino leaving the needle in for the remainder of the week to decrease the amount of needles he would need. Seferino was concerned it would cause problems with radiation but RN educated Seferino onthe process. Seferino was willing to try leaving the needle in today and would decide tomorrow duringhydration if he wanted to keep in for the remainder of the week. Pre administration: Chemotherapy orders independently verified for drug name, route, and dosage per patient's height, weight and BSA by Sepideh Walker RN and Staff Pharmacist(s). REACTIONS (DESCRIPTION, TIME, INTERVENTION AND EFFECTIVENESS) none ASSESSMENT: Pion was awake, alert and tolerated treatment well. Port flushed with 20 cc's of NS and 500 unitsof heparin. Port left accessed for hydration tomorrow. PLAN: Return to clinic tomorrow for hydration and concurrent radiation. documented in this encounter Plan of Treatment Upcoming Encounters Date Type Specialty Care Team Description 01/26/2022 Infusion Hematology and Oncology 01/26/2022 Office Visit Hematology and Oncology Mirta Sy MD [facility] DR ONCOLOGY DEPT. 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 Administer prior to chemotherapy., Routine CISplatin (Platinol) 61 mg in New Bag 01/20/2022 10:02 AM EDT 61 m g 311 mL/hr sodium chloride 0.9% 311 mL infusion 61 mg (rounded from 60.6 mg = 30 mg/m2/dose ? 2.02 m2 Treatment Plan BSA from Recorded weight), Intravenous, ONCE, 1 dose, On Wed01/20/22 at 0930, Administer over 60 Minutes, Warning Vesicant/Irritant Medication dexAMETHasone (Decadron) (10 mg/mL) injection Given 9:09 AM EDT 10 mg 10 mg 10 mg, Intravenous, ONCE, 1 dose, On Wed01/20/22 at 0830, Administer prior to chemotherapy magnesium sulfate 1 g in dextrose 5% New Bag 01/20/2022 9:16 A M EDT 2 g 200 mL/hr 100 mL infusion 2 g, Intravenous, ONCE, 1 dose, On Wed01/20/22 at 0815, Administer over 60 Minutes, May give before or during cisplatin infusion palonosetron (Aloxi) (0.05 mg/mL) injection Given 12/28 9:11 AM EDT 0.25 mg 0.25 mg 0.25 mg, Intravenous, ONCE, 1 dose, On Wed01/20/22 at 0830, Administer over 30 seconds. Administer prior to chemotherapy., Routine sodium chloride 0.9% infusion New Bag 01/20/2022 9:58 AM EDT 500 mLs 500 mL/hr 500 mL, at 500 mL/hr, Intravenous, CONTINUOUS, Starting on Wed01/20/22 at 0930, Until Wed01/20/22 at 1029, Post CISplatin sodium chloride 0.9% infusion New Bag 01/20/2022 8:50 AM EDT 999 mLs 999 mL/hr 999 mL, at 999 mL/hr, Intravenous, CONTINUOUS, Starting on Wed01/20/22 at 0830, Until Wed01/20/22 at 0929, Pre-CISplatin documented in this encounter Care Teams Expressive Art Therapist Relationship Specialty Start Date End Date Amelia Gomes APRN PCP - General Family Medicine 10/17/[address] [place] [address] documented as of this encounter
--- OUTSIDE RECORDS SUMMARY | 2022-01-24 03:56 | XMS_ITS | Clinical Summary ---
:1935 Author Organization [facility] Address [address] [place] [address] Care Team Providers Name Role Phone Unknown, Provider Primary Care Provider Social History Tobacco Use Types Packs/Day Years Used Date Never Assessed Sex Assigned at Date Recorded Not on file Plan of Treatment Health Maintenance Due Date Last Done Comments COVID-19 Vaccine (#1) 1935 Fall Risk Screening 2002 Insurance Payer Benefit Plan Subscriber ID Effective Phone Address Typ e / Group Dates MEDICARE MEDICARE A/B [id number] 2002-Pres [address] edicare ent [id number] [facility] [place] [address] [facility] [id number] 2021-Pres [phone] [address] [facility] ent [phone] [id number] [place] [address] Pino Wong Personal/Family Self [address] (Home) [place] [address] JudithPino Personal/Family Self [address] (Home) [place] [address] Care Teams Casino Cashier Relationship Specialty Start Date End Date Unknown, Provider, PCP - General 02/01/15
--- OUTSIDE RECORDS SUMMARY | 2022-01-24 03:56 | XMS_ITS | Encounter Summary ---
:1935 Author Organization [facility] [place] [address] Care Team Providers Name Role Phone MateoZaid simpsonAmeliamat Branch APRN Primary Care Provider [phone] Encounter Details Date Type Department Care Team Description 01/19/2022 [facility] [address] [phone] Social History Tobacco Use [...] encounter Progress Notes Kaley Lee, RN - 01/19/2022 2:41 PM EDT RESEARCH NURSE OFFICE NOTE Week 7 ( day 43 ) infusion tomorrow 01/12/2022 Study Number:[id number] Description:Comparing high-dose cisplatin every three weeks to low-dose cisplatin weekly when combined with radiation for patients with advanced head and neck cancer. Randomized to weekly low dose cisplatin KEVEN Wong presented to hem-onc clinic. Pt was also evaluated by Dr Sy today please see his note. The plan is to administer his weekly cisplatin tomorrow. The adverse events on RN AE table were reviewed and updated accordingly. STUDY ASSESSMENTS COMPLETED Patient assessed concurrently with [...] orthostatic BPs. He also saw Gris our Radiation Protection Engineer today. PREVIOUS CYCLE SUPPLIES & MEDICATION COLLECTED [...] 2 2 01/03/2212/172101/12/22 :Had phone appointment with [facility] 10 Mucositis oral 1 2 2 3 [...] patient and his were instructed to call [facility] at [phone] and ask for the continuous linter drier operator radiation or medical oncologist. They verbalized understanding. Surveys: None today . PLAN 1. Subject agrees to continue on study [id number] per protocol. Weekly chemo tomorrow & Daily radiation treatments . 2. Daily chemo this week. Last radiation treatment this 01/22/22 3..last chemo Saturday 01/20 Patient verbalizes understanding of, and agreement with, plan. Advised to contact this office for any questions/concerns, as well as for any new or worsening symptoms. documented in this encounter Plan of Treatment Upcoming Encounters Date Type Specialty Care Team Description 01/26/2022 Infusion Hematology and Oncology 01/26/2022 Office Visit Hematology and Oncology Mirta Sy MD [facility] DR ONCOLOGY DEPT. [place], [place] [address] (Wo rk) 01/28/2022 Office Visit Radiation Oncology Chilango Michel MD [facility] RADIATION ONCOLO [place], [place] [address] (Wo rk) 01/29/2022 Infusion Hematology and Oncology 02/05/2022 Infusion Hematology and Oncology documented as of this encounter Visit Diagnoses Not on filedocumented in this encounter Care Teams Cosmetic Sales Advisor Relationship Specialty Start Date End Date Amelia Gomes APRN PCP - General Family Medicine 10/17/[address] [place] [address] documented as of this encounter
--- OUTSIDE RECORDS SUMMARY | 2022-01-24 03:57 | XMS_ITS | Encounter Summary ---
:1935 Author Organization [facility] [place] [address] Care Team Providers Name Role Phone Amelia Gomes APRN Primary Care Provider [phone] Encounter Details Date Type Department Care Team Description 12/08/2021 [facility] Tonsil cancer [address] ONCOLOGY DEPT. [place], [place] [phone] Social History Tobacco Use Types Packs/Day Years [...] place to sleep or slept in a [place] (including now)? Sex Assigned at Date Recorded Not on file documented as of this encounter Plan of Treatment Upcoming Encounters Date Type Specialty Care Team Description 01/26/2022 Infusion Hematology and Oncology 01/26/2022 Office Visit Hematology and Oncology Mirta Sy MD [facility] ONCOLOGY DEPT. 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
--- OUTSIDE RECORDS SUMMARY | 2022-01-24 03:57 | XMS_ITS | Encounter Summary ---
:1935 Author Organization [facility] [place] [address] Care Team Providers Name Role Phone MateoHayde simpsonleonarda Branch APRN Primary Care Provider [phone] Encounter Details Date Type Department Care Team Description 12/22/2021 Notes [facility] [address] [phone] Social History Tobacco Use [...] encounter Progress Notes Kaley Lee, RN - 12/22/2021 5:05 PM EDT RESEARCH NURSE OFFICE NOTE Week 3 ( day 15) infusion tomorrow 12/22/2021 Study Number:[id number] Description:Comparing high-dose cisplatin every three weeks to low-dose cisplatin weekly when combined with radiation for patients with advanced head and neck cancer. Randomized to weekly low dose cisplatin SUBJECTIVE Pino Wong presented to hem-onc clini. Pt was also evaluated by Dr Sy today please see hisnote. The plan is to administer his weekly cisplatin tomorrow. The adverse events on RN AE table were reviewed and updated accordingly. STUDY ASSESSMENTS COMPLETED Patient states he is in good health. 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 He mentions some pain right side throat, tonsil area . Comes and goes . Left side is also beginning to hurt. Still doesn't interfere with eating and he grades it 2/10 today while eating. No pain while swallowing water or Ensure. He has developed some dryness in mouth . Has started the saltwater baking soda rinses. Confirmed with they are using the recipe our clinic provides. He has more loss of taste that is more problematic with his appetite he has lost about 5 lbs since last week . they are using feeding , Gtube , Nutren 1.5 X1 per day. . He also drink 1 Ensure a day. Eating pot roast, menendez's pie. States he has numbness in right hand when he wakes up in AM. It involves all fingers. This goes awaywhen he moves it . He denies left hand dumbness. He states he has some chronic bilateral numbness in his feet. He considers it mild. PREVIOUS CYCLE SUPPLIES & MEDICATION COLLECTED ??? n/a MEDICATION DISPENSED n/a SUPPLIES DISPENSED ??? N/a Unsolicited AE/SIDE EFFECT MONITORING # AE Grade (CTCAE v. 5 ) Start date Stop Date Study Related Intervention/Outcome 1 dysgeusia 1 2 12/15/21 12/22/21 2 constipation 1 1 12/14/21 12/22/21 intermittent 3 Increased oral mucous, secretions 1 1 12/15/21 12/22/21 << solicited AEs >> 1 anemia 0 0 0 12/09/21 12/15/21 12/22/21 2 Ear pain 0 0 0 12/09/21 12/15/21 12/22/21 3 Hearing impairment 0 0 0 12/09/21 12/15/21 12/22/21 4 Middle ear inflammation 0 0 0 12/09/21 12/15/21 12/22/21 5 tinnitus 0 0 0 12/09/21 12/15/21 12/22/21 6 vertigo 0 0 0 12/09/21 12/15/21 12/22/21 7 Vestibular disorder 0 0 0 12/09/21 12/15/21 12/22/21 8 Dry mouth 1 1 12/15/21 12/22/21 Using salt water/baking soda rinses 9 dysphagia 0 0 0 12/15/21 12/22/21 10 Mucositis oral 0 0 0 12/09/21 12/15/21 12/22/21 11 Nausea 0 0 0 12/09/21 12/15/21 12/22/21 12 vomiting 0 0 0 12/09/21 12/15/21 12/22/21 13 fatigue 0 0 0 12/09/21 12/15/21 12/22/21 14 pain 1 1 1 1 04/202112/09/21 12/15/21 12/22/21 Right side of throat, tonsil area , pain intermittent 10 15 Dermatitis radiation 0 0 0 12/09/21 12/15/21 12/22/21 16 ANC decreased 0 0 12/09/21 12/15/21 17 Weight loss 0 0 12/09/21 12/15/21 18 anorexia 0 0 0 12/09/21 12/15/21 12/22/21 19 dehydration 0 0 0 12/09/21 12/15/21 12/22/21 20 Peripheral sensory neuropathy 1 1 12/15/21 12/22/21 Right hand and some in bilateral feet 21 Acute kidney injury 0 0 0 12/09/21 12/15/21 12/22/21 22 Pharyngeal mucositis 0 0 0 12/09/21 12/15/21 12/22/21 EDUCATION PROVIDED Pt instructed to call clinic with any questions or concerns. For Weekend/Holiday coverage while our clinic is closed, the patient was instructed to call [facility] at [phone] and ask for the supervisor extrusion radiation oncologist. Patient verbalized understanding. Surveys: None today . PLAN 1. Subject agrees to continue on study [id number] per protocol. Daily XRT 2. Chemo tomorrow; weekly . Patient verbalizes understanding of, and agreement with, plan. Advised to contact this office for any questions/concerns, as well as for any new or worsening symptoms. documented in this encounter Plan of Treatment Upcoming Encounters Date Type Specialty Care Team Description 01/26/2022 Infusion Hematology and Oncology 01/26/2022 Office Visit Hematology and Oncology Mirta Sy MD [facility] DR ONCOLOGY DEPT. [place], [place] [address] (Wo alondra) 01/28/2022 Office Visit Radiation Oncology Chilango Michel MD [facility] RADIATION ONCOLO [place], [place] [address] (Wo rk) 01/29/2022 Infusion Hematology and Oncology 02/05/2022 Infusion Hematology and Oncology documented as of this encounter Visit Diagnoses Not on filedocumented in this encounter Care Teams Sustainability Director Relationship Specialty Start Date End Date Amelia Gomes APRN PCP - General Family Medicine 10/17/[address] [place] [address] documented as of this encounter
--- OUTSIDE RECORDS SUMMARY | 2022-01-24 03:57 | XMS_ITS | Encounter Summary ---
:1935 Author Organization [facility] [place] [address] Care Team Providers Name Role Phone MateoHayde simpsonleonarda Branch APRN Primary Care Provider [phone] Reason for Visit Reason Comments Chemotherapy [id number] Encounter Details Date Type Department Care Team Description 01/13/2022 Infusion Hematology Oncology at [facility] Tonsil cancer [address] [place] [address] [phone] Social History Tobacco Use Types [...] Sign Reading Time Taken Comments Blood Pressure 134/79 01/13/2022 8:31 AM EDT Pulse 92 01/13/2022 8:31 AM EDT Temperature 37.2 ??C (99 ??F) 01/13/2022 8:31 AM EDT Respiratory Rate 18 01/13/2022 8:31 AM EDT Oxygen Saturation 98% 01/13/2022 8:31 AM EDT Inhaled Oxygen Concentration - - Weight 83.5 kg (184 lb 1.4 oz) 01/13/2022 8:31 AM EDT Height 175.3 cm (5' 9.02) 01/13/2022 8:31 AM EDT Body Mass Index 27.17 01/13/2022 8:31 AM EDT documented in this encounter Progress Notes Sepideh Nelson RN - 01/13/2022 8:30 AM EDT INFUSION THERAPY ADMINISTRATION NOTES DIAGNOSIS: Tonsillar cancer CYCLE #: 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 REASON FOR VISIT: To receive planned therapy. SUBJECTIVE: Pino is reporting that he feels a little better today. No complaints of nausea today.Still having pain in his throat but has been taking the liquid oxycodone. OBJECTIVE: VSS. Weight stable. LAB DATA: From 01/12/22 WBC 2.17, H/H 11.9/35.2, Plt Ct 114, ANC 1.56, BUN/Cr 21/1.0, CA++ 8.8, MG++1.8 IV ACCESS: Port accessed without difficulty at [facility]. Flushes readily with brisk blood return. Pre administration: Chemotherapy orders independently verified for drug name, route, and dosage per patient's height, weight and BSA by Sepideh Walker RN and Staff Pharmacist(s). REACTIONS (DESCRIPTION, TIME, INTERVENTION AND EFFECTIVENESS) none ASSESSMENT: Pino was awake, alert and tolerated treatment well. Port flushed with 20 cc's of NS and 500 unitsof heparin and de-accessed. PLAN: Return to clinic Wednesday for hydration. documented in this encounter Plan of Treatment Upcoming Encounters Date Type Specialty Care Team Description 01/26/2022 Infusion Hematology and Oncology 01/26/2022 Office Visit Hematology and Oncology Mirta Sy MD [facility] DR ONCOLOGY DEPT. 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 documented in this encounter Administered Medications Inactive Administered Medications - up to 3 most recent administrations Medication Order MAR Action Action Date Dose Rate Site aprepitant (CINVANTI) injection Given 01/13/2022 9:28 AM EDT 130 mg Emul 130 mg 130 mg, Intravenous, ONCE, 1 dose, On Wed01/13/22 at 0830, Prior to cisplatin Alternative administration of IV push over 2 minutes is a recommendation from the network firewall engineer., Routine CISplatin (Platinol) 61 mg in sodium New Bag 01/13/2022 9:55 A M EDT 61 mg 311 mL/hr chloride 0.9% 311 mL infusion 61 mg, Intravenous, ONCE, 1 dose, On Wed01/13/22 at 0930, Administer over 60 Minutes, Warning Vesicant/Irritant Medication dexAMETHasone (Decadron) (10 mg/mL) injection Given 9:24 AM EDT 10 mg 10 mg 10 mg, Intravenous, ONCE, 1 dose, On Wed01/13/22 at 0830, Prior to cisplatin magnesium sulfate 2 g in sterile water New Bag 01/13/2022 10:2 5 AM EDT 2 g 25 mL/hr 50 mL infusion 2 g, Intravenous, ONCE, 1 dose, On Wed01/13/22 at 1030, Administer over 120 Minutes, Before or during cisplatin over 120 minutes palonosetron (Aloxi) (0.05 mg/mL) injection Given 12/27 9:27 AM EDT 0.25 mg 0.25 mg 0.25 mg, Intravenous, ONCE, 1 dose, On Wed01/13/22 at 0830, Prior to cisplatin, Routine sodium chloride 0.9% infusion New Bag 01/13/2022 8:41 AM EDT 1,000 mL/hr 1000 mL/hr 1,000 mL/hr, Intravenous, CONTINUOUS, Starting on Wed01/13/22 at 0830, Until Wed01/13/22 at 0929, Infuse for 1 hour pre-CISplatin sodium chloride 0.9% infusion New Bag 01/13/2022 9:53 AM EDT 500 mL/hr 500 mL/hr 500 mL/hr, Intravenous, CONTINUOUS, Starting on Wed01/13/22 at 1030, Until Wed01/13/22 at 1129, Infuse for 1 hour post-CISplatin documented in this encounter Care Teams Psychological Operations Relationship Specialty Start Date End Date Amelia Gomes APRN PCP - General Family Medicine 10/17/[address] [place] [address] documented as of this encounter
--- OUTSIDE RECORDS SUMMARY | 2022-01-24 03:57 | XMS_ITS | Encounter Summary ---
:1935 Author Organization [facility] [place] [address] Care Team Providers Name Role Phone MateoHayde simpsonleonarda Branch APRN Primary Care Provider [phone] Encounter Details Date Type Department Care Team Description 12/26/2021 [facility] [address] [phone] Social History Tobacco Use [...] encounter Progress Notes Kaley Lee, RN - 12/26/2021 8:57 AM EDT RESEARCH NURSE OFFICE NOTE 12/26/2021 Study Number:[id number] Description:Comparing high-dose cisplatin every three weeks to low-dose cisplatin weekly when combined with radiation for patients with advanced head and neck cancer. Randomized to weekly low dose cisplatin SUBJECTIVE Pino Wong presented to rad/onc clinic for daily radiation treatment and then IV hydration . He also saw our Safety Professional, Gris Dawn. Please see her note. The adverse events on RN AE table were reviewed and updated. accordingly. STUDY ASSESSMENTS COMPLETED Patient states pain is much more since seeing Dr Michel 2 days ago. He has tried the BMX. It seems to just stick in the back of the throat and not get back to where he needs it. The taste also gags him and effects the taste of his food. He has also tried the Tylenol Arthritis with no relief. He hasn't taken any aspirin, Aleve, Ibuprofen, Motrin or Advil in over 6 months. He has the Voltarengel that he used about a month ago for his right ankle where he has some arthritis. His pain with swallowing is now interfering with eating, as yesterday all he ate by mouth was apple sauce. When asked to grade pain while swallowing, he states it's up there , but only a little bit while swallowing water or Ensure. I'm still getting my water down while pointing to a bottle of water. He also c/o dryness in mouth and having to get up frequently during the night to drink and rinse hismouth out. He is using the salt water /baking soda rinses often. He reports gums are bleeding when he brushes. He has an electric tooth brush, but not turning it on when he brushes. He states that it is a soft brush. He is reporting some mild itchiness of skin to neck relieved by the cream we supply. He has no redness or desquamation. He is using the feeding tube, Gtube , Nutren 1.5 X 2 per day now . He also is drinking 2 Ensures a day. PREVIOUS CYCLE SUPPLIES & MEDICATION COLLECTED ??? n/a MEDICATION DISPENSED n/a SUPPLIES DISPENSED ??? n/a Unsolicited AE/SIDE EFFECT MONITORING # AE Grade (CTCAE v. ) Start date Stop Date Study Related Intervention/Outcome 1 dysgeusia 1 2 12/15/21 12/25/21 Is affecting his appetite 2 constipation 1 12/14/21 Intermittent Relieved by miralax 3 Increased oral mucous, secretions 1 12/15/21 He states this is same, not worse << solicited AEs >> 1 anemia 0 2 Ear pain 0 3 Hearing impairment 0 4 Middle ear inflammation 0 5 tinnitus 0 6 vertigo 0 7 Vestibular disorder 0 8 Dry mouth 1 2 12/15/21 12/25/21 Using salt water/baking soda rinses 9 dysphagia 0 10 Mucositis oral 1 12/25/21 Gums bleeding when brushing. No c/o pain 11 Nausea 0 12 vomiting 0 13 fatigue 0 14 pain 1 2 04/202112/25/21 Start oxycodone 5 mg Q 4hr PRN 12/26/21 15 Dermatitis radiation 1 12/26/21 moisturizing cream 16 ANC decreased 0 17 Weight loss 0 18 anorexia 1 12/25/21 19 dehydration 0 20 Peripheral sensory neuropathy 1 1 12/12/21 12/26/21 Right hand and some chronic bilateral feet 21 Acute kidney injury 0 22 Pharyngeal mucositis 3 Start oxycodone PRN EDUCATION PROVIDED Provided Biotine mouthwash samples.He was instructed to use as needed. Along with the salt water baking soda rinses. Also he was given several 5mls syringes and instructed to draw up 5 mls of BMX , the equivalent to 1teaspoon, to squirt in the back of his throat . Perhaps that will help to get the medication back where he needs it for symptomatic relief. Dr Michel was contacted regarding his increased pain. He prescribed oxycodone 5mg every 4hr PRN. Pt instructed of this. Patient informed of the precautions necessary to avoid constipation,( increased fluid intake, stool softener/laxatives as needed), avoid any activity that requires alertness, like driving and lastly, to take any narcotic with food or Ensure to avoid stomach upset. Patient verbalized understanding of these instructions. Pt instructed to call clinic with any questions or concerns. For weekend coverage while our clinic is closed, the patient was instructed to call [facility] at [phone] and ask for the home economics expert radiation or medical oncologist. Patient verbalized understanding. Surveys: None today . PLAN 1. Subject agrees to continue on study [id number] per protocol. Daily XRT 2. Next Appt with Dr Sy 12/29 with labs prior. Weekly chemo Saturday 12/30 Patient verbalizes understanding of, and agreement with, plan. Advised to contact this office for any questions/concerns, as well as for any new or worsening symptoms. documented in this encounter Plan of Treatment Upcoming Encounters Date Type Specialty Care Team Description 01/26/2022 Infusion Hematology and Oncology 01/26/2022 Office Visit Hematology and Oncology Mirta Sy MD [facility] DR ONCOLOGY DEPT. [place], [place] [address] (Wo rk) 01/28/2022 Office Visit Radiation Oncology Chilango Michel MD [facility] RADIATION ONCOLO [place], [place] [address] (Wo rk) 01/29/2022 Infusion Hematology and Oncology 02/05/2022 Infusion Hematology and Oncology documented as of this encounter Visit Diagnoses Not on filedocumented in this encounter Care Teams Culinary Instructor Relationship Specialty Start Date End Date Amelia Gomes APRN PCP - General Family Medicine 10/17/[address] [place] [address] [address] [place] [address] documented as of this encounter
--- OUTSIDE RECORDS SUMMARY | 2022-01-24 03:57 | XMS_ITS | Encounter Summary ---
:1935 Author Organization [facility] [place] [address] Care Team Providers Name Role Phone Amelia Gomes APRN Primary Care Provider [phone] Encounter Details Date Type Department Care Team Description 12/22/2021 Office Visit Hematology/Oncology at Kale Sy MD Tonsil cancer [address] ONCOLOGY DEPT. [place], [place] [phone] Social History Tobacco Use Types Packs/Day Years [...] Sign Reading Time Taken Comments Blood Pressure 139/74 12/22/2021 9:00 AM EDT Pulse 84 12/22/2021 9:00 AM EDT Temperature 36.9 ??C (98.4 ??F) 12/22/2021 9:00 AM EDT Respiratory Rate 20 12/22/2021 9:00 AM EDT Oxygen Saturation 97% 12/22/2021 9:00 AM EDT Inhaled Oxygen Concentration - - Weight 86 kg (189 lb 9.6 oz) 12/22/2021 9:00 AM EDT Height 175.3 cm (5' 9.02) 12/22/2021 9:00 AM EDT Body Mass Index 27.99 12/22/2021 9:00 AM EDT documented in this encounter Progress Notes Kale Sy MD - 12/22/2021 9:30 AM EDT Images from the original note were not included. Hematology/Oncology Clinic [facility] Patient Active Problem List Diagnosis ??? 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 Enrolled on NRG HN-009, arm 4: weekly cisplatin with concurrent radiation 70 Gy instituted 12/09/2021 ??? Gilbert's syndrome ??? History of kidney stones Multiple urate stones Chronic allopurinol ??? S/P TKR (total knee replacement), bilateral ??? Hypercholesterolemia ??? Actinic keratosis ??? Filiform wart ??? AK (actinic keratosis) ??? SK (seborrheic keratosis) ??? History of nonmelanoma skin cancer BCC- left helix ONCBCN ONCOLOGY (AMB) 12/09/2021 12/16/2021 CISplatin (Platinol) IV 83 mg 82 mg Starting week #3 concurrent chemoRT on [id number], weekly cisplatin arm. He has been tolerating chemoradiation quite well. Nausea has not been a problem. Bowels are a bit sluggish, and he has MiraLAX on hand. He has not noted peripheral neuropathy nor a change in his hearing function. He had an audiogram this morning, copied below. Most of his nutrition is by mouth; he finds his taste sensation is diminishing. Most things just do not taste much, some taste bad. He is supplementing his oral intake with 1 container of Nutren 1.5/day, but as he has lost some weight by today's measurement he will be discussing going up on this with Gris Dawn RD. Energy level is good, performance status ECOG 0. Physical exam: He looks well, in good spirits Hearing is functionally intact Oral exam is benign. The right tonsil tumor has regressed even further, approximately 12 mm in length along the upper tonsil, approximately 6-7 mm in width, but appears much thinner, barely raised above the tonsil surface. The left tonsil still has a rounded characteristic with no obvious tumor. Oral exam otherwise benign. Neck exam: The right zone 2 node that had been just palpable last week is barely palpable today, less than 1 cm. Nothing palpable in the left neck. The lungs are clear Mediport is benign, still some erythema from tape on the skin. Cardiac exam is normal Abdomen is benign without hepatosplenomegaly or mass. The G-tube site is clean Extremities normal, no clubbing cyanosis or edema Neurologic exam normal. Reflexes 2+. Labs: Today's white count 7.78, hemoglobin 14.2, platelets 230. ANC is 6100. Calcium 9.0, nonfastingglucose 122, BUN 20, creatinine 1.0. Albumin 3.0. Total bilirubin 0.9. Alk phos 62. Sodium 136, potassium 4.4, chloride 100, bicarb 29.2. ALT is 21, AST 13. Magnesium 1.9. 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 Mild hearing deficit at baseline, so far not exacerbated by cisplatin. Expected mouth and throat toxicities from chemoradiation, grade 1. Plan: 1. Increase tube feeding supplementation 2. Viscous lidocaine Rx; he will mix 1:1:1 with OTC liquid antacid and diphenhydramine liquid. 3. Proceed with chemoRT per protocol. Orders written; day 4 supportive care orders are now in Therapy Plan. Kale Sy MD, FACP speedboat operator Hematology/Oncology Section [facility]/[address] [address] Voice recognition software used for this note; please excuse account support specialist errors. I personally reviewed past medical, surgical, family medical histories, reviewed current medications, vital signs, labs, and performed full review of systems. These are documented below the narrative for clarity and succinctness. Outpatient Medications Marked as Taking for the 12/22/21 encounter (Office Visit) with Kale Sy MD Medication Sig Dispense Refill ??? polyethylene glycoL (Miralax) 17 gram/dose Powder Take 17 g by mouth daily. ??? emollient combination no.111 (REMEDY PHYTOPLEX MOISTURIZER TOP) Apply topically. Apply to area of radiation twice a day but no less than 2 hours before a treatment. ??? Sodium Fluoride (DentaGel) 1.1 % Gel Place 5 mLs onto teeth nightly. 56 g PRN ??? SAW PALMETTO ORAL Take by mouth. ??? KRILL OIL ORAL Take by mouth. ??? fluticasone propionate (FLONASE) 50 mcg/actuation [place], Suspension by Each Nare route daily. ??? simvastatin (ZOCOR) 80 mg tablet 80MG, PO, Every other day ??? allopurinol (ZYLOPRIM) 300 mg tablet 300mg, PO, QAM Review of Systems: Review of systems is negative for other COMMUNICATIONS PROGRAMMER, bone, pulmonary, cardiac, GI, , extremity, neurologic, endocrine, skin, constitutional, emotional, or functional problems. Vitals Flowsheet Row Office Visit from 12/22/2021 in Hematology/Oncology at [facility] Weight 86 kg (189 lb 9.6 oz) Height 175.3 cm (5' 9.02) BSA (Calculated - sq m) 2.05 sq meters BMI (Calculated) 27.98 Body surface area is 2.05 meters squared. Wt Readings from Last 3 Encounters: 12/22/21 86 kg (189 lb 9.6 oz) 12/19/21 88.2 kg (194 lb 6.4 oz) 12/17/21 88.2 kg (194 lb 6.4 oz) No results found for this or any previous visit (from the past 72 hour(s)). ++++++++++++++++++++++++++++++++++++++++++++++++++++ documented in this encounter Miscellaneous Notes Addendum Note - Kale Sy MD - 12/22/2021 9:30 AM EDT Addended by: KALE SY on: 12/22/2021 03:23 PM Modules accepted: Orders documented in this encounter Plan of Treatment Upcoming Encounters Date Type Specialty Care Team Description 01/26/2022 Infusion Hematology and Oncology 01/26/2022 Office Visit Hematology and Oncology Mirta Sy MD [facility] ONCOLOGY DEPT. [place], [place] [address] (Wo rk) 01/28/2022 Office Visit Radiation Oncology Chilango Michel MD [facility] RADIATION [place], [place] [address] (Wo rk) 01/29/2022 Infusion Hematology and Oncology 02/05/2022 Infusion Hematology and Oncology documented as of this encounter Visit Diagnoses Diagnosis Tonsil cancer Malignant neoplasm of tonsil documented in this encounter Care Teams Secondary Market Manager Relationship Specialty Start Date End Date Amelia Gomes APRN PCP - General Family Medicine 10/17/[address] [place] [address] documented as of this encounter
--- OUTSIDE RECORDS SUMMARY | 2022-01-24 03:57 | XMS_ITS | Encounter Summary ---
:1935 Author Organization [facility] [place] [address] Care Team Providers Name Role Phone Amelia Gomes ANALYSIS MGR Primary Care Provider [phone] Encounter Details Date Type Department Care Team Description 12/17/[address] [facility] [place] [facility] Janice Barth, Tonsil cancer [facility] [place] [address] [place] [address] [phone] (Wo rk) Social History Tobacco Use Types [...] on file documented as of this encounter Medications at Time of Discharge Medication Sig Dispensed Refills Start Date End Date polyethylene glycoL Take 17 g by mouth 0 (Miralax) 17 gram/dose daily. Powder emollient combination Apply topically. 0 no.111 (REMEDY PHYTOPLEX Apply to area of MOISTURIZER TOP) radiation twice a day but no less than 2 hours before a treatment. prochlorperazine Take 1 tablet by 30 tablet 3 12/08/2021 (Compazine) 10 mg Tablet mouth every 6 hours as needed for Nausea. Sodium Fluoride (DentaGel) Place 5 mLs onto 56 g 02/2022 1.1 % GelIndications: teeth nightly. Tonsil cancer, Xerostomia due to radiotherapy acetaminophen (TYLENOL) 650 Take 650 mg by mouth 0 mg Tablet Sustained Release every 8 hours as needed for Pain. Do not exceed 6 tabs in 24 hours diclofenac (Voltaren) 1 % Apply topically. 0 Gel SAW PALMETTO ORAL Take by mouth. 0 KRILL OIL ORAL Take by mouth. 0 fluticasone propionate by Each Nare route 0 07/02 (FLONASE) 50 mcg/actuation daily. [place], Suspension simvastatin (ZOCOR) 80 mg 80MG, PO, Every 0 04/03 tablet other day allopurinol (ZYLOPRIM) 300 300mg, PO, QAM 0 04/03 mg tablet documented as of this encounter Plan of Treatment Upcoming Encounters Date Type Specialty Care Team Description 01/26/2022 Infusion Hematology and Oncology 01/26/2022 Office Visit Hematology and Oncology Mirta Sy MD [facility] DR ONCOLOGY DEPT. [place], [place] [address] (Wo rk) 01/28/2022 Office Visit Radiation Oncology Chilango Michel MD [facility] RADIATION ON[place]HANTEL [place], [place] [address] (Wo rk) 01/29/2022 Infusion Hematology and Oncology 02/05/2022 Infusion Hematology and Oncology documented as of this encounter Procedures Procedure Name Priority Date/Time Associated Diagnosis Comme nts RECIST 1.1 Routine 12/17/2021 9:41 AM Tonsil cancer Results for this EDT procedure are i n the results section . documented in this encounter Results RECIST 1.1 (12/17/2021 9:41 AM EDT) Anatomical [...] who have questions please contact the health lawn care specialist that requested your imaging first. ? Electronically signed by: Kevin Quintanilla [facility] ([phone]), at 12/17/2021 10:42 AM Narrative 12/17/2021 10:42 AM EDT EXAMINATION: RECIST [...] cm on series 7, image 23 of mirta cordon MRI dated 11/17/2021. Right level 2B node [...] cm on series 7, image 23 of mirta cordon MRI dated 11/17/2021. Right level 2B node [...] ho have questions please contact the health lawn care specialist that requested your imaging first. Electronically signed by: Kevin Quintanilla [facility] ([phone]), at 12/17/2021 10:42 AM Janice Barth APRN IMG RESEARCH ORDERABLES documented in this encounter Visit Diagnoses Diagnosis Tonsil cancer Malignant neoplasm of tonsil documented in this encounter Care Teams Cable Television Access Coordinator Relationship Specialty Start Date End Date Amelia Gomes APRN PCP - General Family Medicine 10/17/[address] [facility] [address] [place] [address] documented as of this encounter
--- OUTSIDE RECORDS SUMMARY | 2022-01-24 03:57 | XMS_ITS | Encounter Summary ---
:1935 Author Organization [facility] [place] [address] Care Team Providers Name Role Phone Amelia Gomes APRN Primary Care Provider [phone] Encounter Details Date Type Department Care Team Description 01/12/2022 [facility] Tonsil [facility] [address] HEMATOLOGY AND [address] ONCOLOGY [phone] [place], [place] [address] (Wo rk) Social History Tobacco Use Types [...] place to sleep or slept in a group home (including now)? Sex Assigned at Date Recorded Not on file documented as of this encounter Progress Notes Page, Gris Ward, RD - 01/12/2022 11:00 AM EDT Nutrition Note Visited with patient and his Angelina after his appointment with Dr. Sy today. Patient started concurrent chemo and radiation therapy for tonsil cancer on 12/09/21, over one month ago. His final RT is in 10 days on 01/22. He still has dry mouth, taste changes and pain. His pain is currently fairly well controlled with oxycodone and fentanyl patch, which he started last week. However, he has been a bit more steady since starting fentanyl patch. He was in a wheelchair today. Patient is taking sips of water. His nutrition is coming 100% from his tube feeds. He is adequately hydrating, getting in over 2 liters per day between enteral formula and free water through g-tube. His weight has varied during treatment, though is 10# below his starting weight. Dr. Sy added nystatin for candidiasis today. 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 Fentanyl patch was stopped; oxycodone increased to 10 mg every 4 hours as needed. hydration was added. Dr. Sy recommended he add table salt via g-tube. Wt Readings from Last 10 Encounters: 01/12/22 83.5 kg (184 lb) 01/07/22 86.3 kg (190 lb 3.2 oz) 01/06/22 84.6 kg (186 lb 6.4 oz) 01/05/22 84.2 kg (185 lb 9.6 oz) 12/31/21 87 kg (191 lb 12.8 oz) 12/30/21 84.6 kg (186 lb 9.6 oz) 12/29/21 84.9 kg (187 lb 3.2 oz) 12/24/21 88.3 kg (194 lb 9.6 oz) 12/23/21 85.3 kg (188 lb) 12/22/21 86 kg (189 lb 9.6 oz) 12/09/21 194# starting weight BMI 27.16 Down 6# in past 5 days 10# loss in past month since start of treatment (5.2% body weight) - significant Weight has varied some since start of treatment one month ago (184-194#) Diet: Limited to sips of water only. ?? Enteral: G-tube was placed on 11/13 by IR at [facility]. He is currently taking 5 cartons Nutren 1.5 and 2 bottles Ensure Plus via g-tube using gravity bags.This provides 1875 kcals, 85 g protein, 955 ml water. He puts over 1 liter of free water through g-tube daily. Medications: Fentanyl patch (added 01/07)--discontinued today, Oxycodone 10 mg every 4 hours prn (increased), zofran-ODT, BMX, miralax daily, compazine prn, saw palmetto, krill oil, tylenol prn, simvastatin, allopurinol. 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 Final RT is 01/22. Labs on 01/12: WBC 2.17, ANC 1560, hgb 11.9, platelets 113, Na 135, other lytes wnl, BUN 21, Creat 1.0, Ca wnl, no Mg result yet. LTs wnl, Albumin 3.0. Nutrition Problem: Swallowing difficulty/inadequate PO intake related to mucositis secondary to concurrent HN cancer treatment as evidenced by reliance on g-tube feeds for 100% calorie and protein needs. Ongoing/unresolved ?? Estimated needs based on 83.5 [id number] kcals (25-30 kcal/kg) 84-126 g protein (1-1.5 g/kg) 1 ml/kcal fluids Recommendations: * Try to increase to 6 cartons Nutren 1.5 per day to provide 2250 kcals, 102 g protein, 1146 ml water per day. Additional 1100 ml water needed per day. * Add salt via g-tube per Dr. Sy due to hyponatremia. * Continue with 1+ liter free water * Continue to take sips of liquid by mouth. * Placed order for enteral supplies with [facility]. ?? documented in this encounter Plan of Treatment Upcoming Encounters Date Type Specialty Care Team Description 01/26/2022 Infusion Hematology and Oncology 01/26/2022 Office Visit Hematology and Oncology Mirta Sy MD [facility] DR ONCOLOGY DEPT. [place], [place] [address] (Wo rk) 01/28/2022 Office Visit Radiation Oncology Chilango Michel MD [facility] RADIATION ONCOLO [place]Y [place], [place] [address] (Wo rk) 01/29/2022 Infusion Hematology and Oncology 02/05/2022 Infusion Hematology and Oncology documented as of this encounter Visit Diagnoses Diagnosis Tonsil cancer Malignant neoplasm of tonsil documented in this encounter Care Teams Business Continuity Coordinator Relationship Specialty Start Date End Date Amelia Gomes APRN PCP - General Family Medicine 10/17/[address] [place] [address] documented as of this encounter
--- OUTSIDE RECORDS SUMMARY | 2022-01-24 03:57 | XMS_ITS | Encounter Summary ---
:1935 Author Organization [facility] [place] [address] Care Team Providers Name Role Phone Amelia Gomes APRN Primary Care Provider [phone] Encounter Details Date Type Department Care Team Description 12/10/2021 Office Visit Radiation Oncology at [facility] Marito MD Tonsil cancer [address] RADIATION ONCOLOGY [place], [place] [phone] Social History Tobacco Use Types Packs/Day Years [...] place to sleep or slept in a usp (including now)? Sex Assigned at Date Recorded Not on file documented as of this encounter Last Filed Vital Signs Vital Sign Reading Time Taken Comments Blood Pressure 128/68 12/10/2021 3:05 PM EDT Pulse 89 12/10/2021 3:05 PM EDT Temperature 37.1 ??C (98.8 ??F) 12/10/2021 3:05 PM EDT Respiratory Rate 18 12/10/2021 3:05 PM EDT Oxygen Saturation 95% 12/10/2021 3:05 PM EDT Inhaled Oxygen Concentration - - Weight 90.9 kg (200 lb 6.4 oz) 12/10/2021 3:05 PM with shoes EDT Height - - Body Mass Index 29.58 12/09/2021 12:55 PM EDT documented in this encounter Progress Notes Marito Michel MD - 12/10/2021 3:30 PM EDT Images from the original note were not included. 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 Receiving definitive chemoradiotherapy on NRG HN009, [...] Dr. Cedillo, who he saw on 10/09/21. ?? Staging & Therapy ? Tonsil, right [...] 3. ??No distant sites of metastasis. ? Treatment: Intent: Curative/definitive Site: Tonsillar primary, involved nodes, elective cris basins Prescription: 70 Gy in 33 treatments Frequency: Once daily Technique: VMAT/IMRT Concurrent chemotherapy: Yes ONC BCA CHEMO (AMB) 12/09/2021 CISplatin (Platinol) IV 83 mg Treatment Plan Images: Treatment Progress: 4 Gy in 2 fractions Setup films checked and approved. Clinical Course: Interval History: Symptoms Intervention Pain No pain Secretions / Dryness No Issues Nutrition / G Tube All by mouth; Flushing G tube Swallowing Function No issues Skin No issues GI N/V No issues Bowel Function No issues Other Exam: Patient Vitals for the past 24 hrs: Temp Pulse Resp BP SpO2 12/10/21 1505 37.1 ??C (98.8 ??F) 89 18 128/68 95 % Weight : 90.1 kg initial Change: NA SKIN: no skin erythema HEENT: no mucositis GI: G Tube c/d/i Performance Status: KPS 90-100% ECOG 0 Fully active, able to carry on all pre-disease performance without restriction CTCAE TOXICITY GRADES (see below for knapp): Site Grade Skin 0 Xerostomia 0 Pharyngeal Mucositis 0 Dysphagia 0 Hoarseness 0 Impression/Plan: Impression: No toxicity, treatment started within the last week. Plan: ?? Continue radiation therapy as planned. ?? Pain control: none needed at this time ?? Skin: Topical cream prn ?? Mucositis: ?? Pain control: see above ?? Oral hygiene consisting of baking soda/salt rinse at least 8 times daily ?? Alimentation: motor power connector following ?? Weight stable, all by mouth at this time ?? GI: ?? NV: No issues ?? Bowels: No issues No orders of the defined types were [...] predominantly whispered speech NA ??? National Cancer [place] (NCI) Comprehensive Cancer [facility] ??? [place] [employer] Commission on Cancer (ACS López) Accredited Cancer Program ??? [employer] (ACR) Accredited Radiation Oncology Program documented in this encounter Plan of Treatment Upcoming Encounters Date Type Specialty Care Team Description 01/26/2022 Infusion Hematology and Oncology 01/26/2022 Office Visit Hematology and Oncology Mirta Sy MD [facility] DR ONCOLOGY DEPT. [place], [place] [address] (Wo rk) 01/28/2022 Office Visit Radiation Oncology Chilango Michel MD [facility] [place] [address] (Wo rk) 01/29/2022 Infusion Hematology and Oncology 02/05/2022 Infusion Hematology and Oncology documented as of this encounter Visit Diagnoses Diagnosis Tonsil cancer Malignant neoplasm of tonsil documented in this encounter Care Teams Electro Mechanical Solar Technician Relationship Specialty Start Date End Date Amelia Gomes APRN PCP - General Family Medicine 10/17/[address] [place] [address] documented as of this encounter
--- OUTSIDE RECORDS SUMMARY | 2022-01-24 03:57 | XMS_ITS | Encounter Summary ---
:1935 Author Organization [facility] [place] [address] Care Team Providers Name Role Phone Amelia Gomes APRN Primary Care Provider [phone] Encounter Details Date Type Department Care Team Description 12/17/2021 Office Visit Radiation Oncology at [facility] Marito MD Tonsil cancer [address] RADIATION ONCOLOGY [place], [place] [phone] Social History Tobacco Use Types Packs/Day Years [...] Sign Reading Time Taken Comments Blood Pressure 142/81 12/17/2021 8:25 AM EDT Pulse 83 12/17/2021 8:25 AM EDT Temperature 36.8 ??C (98.2 ??F) 12/17/2021 8:25 AM EDT Respiratory Rate 18 12/17/2021 8:25 AM EDT Oxygen Saturation 95% 12/17/2021 8:25 AM EDT Inhaled Oxygen Concentration - - Weight 88.2 kg (194 lb 6.4 oz) 12/17/2021 8:25 AM with shoes EDT Height - - Body Mass Index 28.69 12/16/2021 8:27 AM EDT documented in this encounter Progress Notes Marito Michel MD - 12/17/2021 8:15 AM EDT Images from the original note were not included. [facility] Medicine Radiation Oncology Radiation Oncology On-treatment [...] CISplatin (Platinol) IV 83 mg 82 mg Treatment Plan Images: Treatment Progress: 14.84 Gy in 7 fractions Setup films checked and approved. Clinical Course: Interval History: Symptoms Intervention Pain No pain, mild discomfort associated with throat No analgesia Secretions / Dryness Mild dysgeusia, no xerostomia Using BSSW Nutrition / G Tube All by mouth; flushing G tube Swallowing Function No issues Skin No issues GI N/V No issues Bowel Function No issues Other Exam: Patient Vitals for the past 24 hrs: Temp Pulse Resp BP SpO2 12/17/21 0825 36.8 ??C (98.2 ??F) 83 18 142/81 95 % Weight : 90.1 kg initial Change: 90.1 => 88.2 SKIN: no skin erythema HEENT: no mucositis GI: g tube c/d/i Performance Status: KPS 90-100% ECOG 0 Fully active, able to carry on all pre-disease performance without restriction CTCAE TOXICITY GRADES (see below for knapp): Site Grade Skin 0 Xerostomia 0 Pharyngeal Mucositis 0 Dysphagia 0 Hoarseness 0 Impression/Plan: Impression: minimal toxicity Plan: ?? Continue radiation therapy as planned. ?? Pain control: none needed at this time ?? Skin: topical cream prn ?? Mucositis: ?? Pain control: see above ?? Oral hygiene consisting of baking soda/salt rinse at least 8 times daily ?? Alimentation: transfer and pumphouse operator following ?? Weight stable, all by mouth [...] predominantly whispered speech NA ??? National Cancer [place] (NCI) Comprehensive Cancer Center ??? [place] [employer] Commission on Cancer (ACS López) Accredited Cancer Program ??? [employer] (ACR) Accredited Radiation Oncology Program documented in this encounter Plan of Treatment Upcoming Encounters Date Type Specialty Care Team Description 01/26/2022 Infusion Hematology and Oncology 01/26/2022 Office Visit Hematology and Oncology Mirta Sy MD [facility] ONCOLOGY DEPT. [place], [place] [address] (Wo rk) 01/28/2022 Office Visit Radiation Oncology Chilango Michel MD [facility] RADIATION ONCOLO [place], [place] [address] (Wo rk) 01/29/2022 Infusion Hematology and Oncology 02/05/2022 Infusion Hematology and Oncology documented as of this encounter Visit Diagnoses Diagnosis Tonsil cancer Malignant neoplasm of tonsil documented in this encounter Care Teams Wellness Specialist Relationship Specialty Start Date End Date Amelia Gomes APRN PCP - General Family Medicine 10/17/[address] [place] [address] [address] [place] [address] documented as of this encounter
--- OUTSIDE RECORDS SUMMARY | 2022-01-24 03:57 | XMS_ITS | Encounter Summary ---
:1935 Author Organization [facility] [address] Care Team Providers Name Role Phone Amelia Gomes Sarina CARLOS Primary Care Provider [phone] Reason for Visit Reason Comments Dehydration Treatment/Therapy Plan Authorization (Routine) - Authorized Specialty Diagnoses / Procedures Referred By Contact Refer red To Contact Hematology and Oncology Diagnoses Tonsil cancer History of kidney stones Gilbert's syndrome Kale Sy MD [facility] Hem Onc Infusion Procedures , [facility] [address] [place], [place] ONCOLOGY DEPT. [address] [place] [address] Referral ID Status Reason Start Date Expiration Date Visits V isits Requested Authorized [id number] Authorized 12/08/2021 02/25/2022 99 99 Encounter Details Date Type Department Care Team Description 01/09/2022 Infusion Hematology Oncology at [facility] lbert's syndrome; [facility] Tonsil cancer; [address] [place] [address] History of kidney stones [place], [place] [phone] Social History Tobacco Use [...] place to sleep or slept in a longterm (including now)? Sex Assigned at Date Recorded Not on file documented as of this encounter Last Filed Vital Signs Vital Sign Reading Time Taken Comments Blood Pressure 128/71 01/09/2022 8:38 AM EDT Pulse 81 01/09/2022 8:38 AM EDT Temperature 36.6 ??C (97.9 ??F) 01/09/2022 8:38 AM EDT Respiratory Rate 18 01/09/2022 8:38 AM EDT Oxygen Saturation 97% 01/09/2022 8:38 AM EDT Inhaled Oxygen Concentration - - Weight - - Height - - Body Mass Index - - documented in this encounter Progress Notes Werner Gardner RN - 01/09/2022 8:30 AM EDT INFUSION THERAPY ADMINISTRATION NOTES [...] [facility] DR ONCOLOGY DEPT. [place], [place] [address] (Wo rk) 01/28/2022 Office Visit Radiation Oncology Chilango Michel MD [facility] RADIATION ONCOLO GY [place], [place] [address] (Wo rk) 01/29/2022 Infusion Hematology [...] MAR Action Action Date Dose Rate Site sodium chloride 0.9% New Bag 01/09/2022 8:17 AM EDT 1,000 mLs 500 mL/hr infusion 1,000 mL (1 L), at 500 mL/hr, Intravenous, ONCE, 1 dose, On Wed01/09/22 at 0845, Administer over 2 hours documented in this encounter Care Teams Manager Erp Relationship Specialty Start Date End Date Amelia Gomes APRN PCP - General Family Medicine 10/17/[address] [place] [address] documented as of this encounter
--- OUTSIDE RECORDS SUMMARY | 2022-01-24 03:57 | XMS_ITS | Encounter Summary ---
:1935 Author Organization [facility] [place] [address] Care Team Providers Name Role Phone MateoZaid simpsonAmeliamat Branch APRN Primary Care Provider [phone] Reason for Visit Reason Comments Chemotherapy Cycle 1, Day 1 Encounter Details Date Type Department Care Team Description 12/09/2021 Infusion Hematology Oncology at [facility] Tonsil cancer [address] [place] [phone] Social History Tobacco Use Types [...] Sign Reading Time Taken Comments Blood Pressure 128/60 12/09/2021 12:55 PM EDT Pulse 91 12/09/2021 12:55 PM EDT Temperature 36.8 ??C (98.2 ??F) 12/09/2021 12:55 PM EDT Respiratory Rate 16 12/09/2021 12:55 PM EDT Oxygen Saturation 97% 12/09/2021 12:55 PM EDT Inhaled Oxygen Concentration - - Weight 88.1 kg (194 lb 3.2 oz) 12/09/2021 12:55 PM EDT Height 175.3 cm (5' 9.02) 12/09/2021 12:55 PM EDT Body Mass Index 28.67 12/09/2021 12:55 PM EDT documented in this encounter Progress Notes Alexander Sneed RN - 12/09/2021 1:00 PM EDT INFUSION THERAPY ADMINISTRATION NOTES DIAGNOSIS: Tonsil Cancer CYCLE #1: Day 1 REASON FOR VISIT: Cisplatin -- Protocol [id number] SUBJECTIVE Pino Wong offers no complaints and is ready to start treatment today. OBJECTIVE LAB DATA: Done 12/08/21 at [facility] for treatment today. IV ACCESS: Implanted port Pre administration: Chemotherapy orders independently verified for drug name, route, and dosage per patient's height, weight and BSA by Alexander Sneed RN & On-site pharmacist. REACTIONS (DESCRIPTION, TIME, INTERVENTION AND EFFECTIVENESS) none ASSESSMENT Pino was awake, alert and tolerated treatment well. PLAN Return to clinic per routine. Pt. chemo teaching instructions included: During clinic hours (8am-5pm Wednesday-Wednesday): pt. can call [phone] with questions or concerns. After clinic hours (5pm-8am Wednesday-Wednesday and weekends) pt can call [phone] and ask for the cracker and cookie machine operator/oncologist construction trades teacher. Pino Wong verbalized understanding of potential chemotherapy side effects and home care including but not limited to- handwashing to prevent infection, signs and symptoms of low blood counts (fever, fatigue, bleeding), to call with a fever of 100.4 or greater, any significant constipation/diarrhea, importance of nutrition and fluid intake (drinking at least 32-64 ounces of non- caffeinated beverages/day), mouth care. Pino Wong verbalized understanding of how to take prescription medications given for home use after chemotherapy. documented in this encounter Plan of Treatment Upcoming Encounters Date Type Specialty Care Team Description 01/26/2022 Infusion Hematology and Oncology 01/26/2022 Office Visit Hematology and Oncology Mirta Sy MD [facility] DR ONCOLOGY DEPT. [place], [place] [address] (Wo rk) 01/28/2022 Office Visit Radiation Oncology Chilango Michel MD [facility] RADIATION ONCOLO [place], [place] [address] (Wo rk) 01/29/2022 Infusion Hematology and Oncology 02/05/2022 Infusion Hematology and Oncology documented as of this encounter Visit Diagnoses Diagnosis Tonsil cancer Malignant neoplasm of tonsil documented in this encounter Administered Medications Inactive Administered Medications - up to 3 most recent administrations Medication Order MAR Action Action Date Dose Rate Site aprepitant (CINVANTI) injection Given 12/09/2021 2:09 PM EDT 130 mg Emul 130 mg 130 mg, Intravenous, ONCE, 1 dose, On Wed12/09/21 at 1300, prior to CISPlatin. Alternative administration of IV push over 2 minutes is a recommendation from the digital computer systems analyst., Routine CISplatin (Platinol) 83 mg in sodium New Bag 12/09/2021 3:17 P M EDT 83 mg 333 mL/hr chloride 0.9% 333 mL infusion 83 mg (rounded from 82.8 mg), Intravenous, ONCE, 1 dose, On Wed12/09/21 at 1400, Administer over 60 Minutes, Warning Vesicant/Irritant Medication dexAMETHasone (Decadron) (10 mg/mL) injection Given 2:13 PM EDT 10 mg 10 mg 10 mg, Intravenous, ONCE, 1 dose, On Wed12/09/21 at 1300, 60 minutes prior to CISPlatin magnesium sulfate 2 g in sterile water New Bag 12/09/2021 3:21 PM EDT 2 g 25 mL/hr 50 mL infusion 2 g, Intravenous, ONCE, 1 dose, On Wed12/09/21 at 1600, Administer over 120 Minutes, Start 2 hours after CISplatin. Possible total dose is 4 grams (2 grams before or during CISplatin as needed and 2 grams after CISplatin.) palonosetron (Aloxi) (0.05 mg/mL) injection Given 11/27 2:07 PM EDT 0.25 mg 0.25 mg 0.25 mg, Intravenous, ONCE, 1 dose, On Wed12/09/21 at 1300, prior to CISPlatin, Routine sodium chloride 0.9% infusion New Bag 12/09/2021 1:20 PM EDT 500 mL/hr 500 mL/hr 500 mL/hr, Intravenous, CONTINUOUS, Starting on Wed12/09/21 at 1300, Until Wed12/09/21 at 1459, For 2 hours before CISplatin. sodium chloride 0.9% with New Bag 12/09/2021 3:17 PM EDT 500 mL/hr 500 mL/hr potassium chloride 20 mEq infusion 500 mL/hr, Intravenous, CONTINUOUS, Starting on Wed12/09/21 at 1500, Until Wed12/09/21 at 1659, For 2 hours after CISplatin. May start post-hydration concurrently with CISplatin. Warning Vesicant/Irritant Medication documented in this encounter Care Teams Leather Roller Relationship Specialty Start Date End Date Amelia Gomes APRN PCP - General Family Medicine 10/17/[address] [place] [address] documented as of this encounter
--- OUTSIDE RECORDS SUMMARY | 2022-01-24 03:57 | XMS_ITS | Encounter Summary ---
:1935 Author Organization [facility] [place] [address] Care Team Providers Name Role Phone Amelia Gomes APRN Primary Care Provider [phone] Reason for Visit Reason Onset Date Comments Follow-up 12/10/2021 S/p chemotherapy Encounter Details Date Type Department Care Team Description 12/10/2021 Telephone Hematology/Oncology at [facility] (S/p [facility] Alexander Kamara RN chemotherapy ) [address] [place] [phone] Social History Tobacco Use Types Packs/Day Years [...] on file documented as of this encounter Miscellaneous Notes Telephone Encounter - Alexander Sneed RN - 12/10/2021 10:29 AM EDT Called and spoke with Pino Wong's , Angelina, as Pino was weed- whacking. She endorses he is feeling well. Did not sleep great last night and we discussed that could be side effect from dexamethasone he received. She said he is good about drinking water and encouraged 2 quarts daily, especially the first few days after chemotherapy. Encouraged to call with any changes or concerns. They have our phone numbers if needed. He has XRT later today. documented in this encounter Plan of Treatment Upcoming Encounters Date Type Specialty Care Team Description 01/26/2022 Infusion Hematology and Oncology 01/26/2022 Office Visit Hematology and Oncology Mirta Sy MD [facility] ONCOLOGY DEPT. [place], [place] [address] (Wo rk) 01/28/2022 Office Visit Radiation Oncology Chilango Michel MD [facility] RADIATION ONCOLO [place], [place] [address] (Wo rk) 01/29/2022 Infusion Hematology and Oncology 02/05/2022 Infusion Hematology and Oncology documented as of this encounter Visit Diagnoses Not on filedocumented in this encounter Care Teams Grant Specialist Relationship Specialty Start Date End Date Amelia Gomes APRN PCP - General Family Medicine 10/17/20 [address] [facility] [address] [address] [place] [address] documented as of this encounter
--- OUTSIDE RECORDS SUMMARY | 2022-01-24 03:57 | XMS_ITS | Encounter Summary ---
:1935 Author Organization [place] [address] Care Team Providers Name Role Phone MireyaZaidAmeliamat Branch APRN Primary Care Provider [phone] Encounter Details Date Type Department Care Team Description 01/05/2022 Office Visit Hematology/Oncology Kale Sy, Tons il cancer; at [facility] Gilbert's syndrome; [address] [place] [address] [place]otherapy-[place] [address] ONCOLOGY DEPT. [phone] [place], [place] [address] Social History Tobacco Use Types Packs/Day Years [...] Sign Reading Time Taken Comments Blood Pressure 140/78 01/05/2022 10:00 AM EDT Pulse 77 01/05/2022 10:00 AM EDT Temperature 36.6 ??C (97.8 ??F) 01/05/2022 10:00 AM EDT Respiratory Rate 22 01/05/2022 10:00 AM EDT Oxygen Saturation 99% 01/05/2022 10:00 AM EDT Inhaled Oxygen Concentration - - Weight 84.2 kg (185 lb 9.6 oz) 01/05/2022 10:00 AM EDT Height 175.3 cm (5' 9.02) 01/05/2022 10:00 AM EDT Body Mass Index 27.4 01/05/2022 10:00 AM EDT documented in this encounter Progress Notes Kale Sy MD - 01/05/2022 10:15 AM EDT Images from the original note were not included. Hematology/Oncology Clinic [facility] Patient Active Problem List Diagnosis ??? Tonsil [...] left helix ONCBCN ONCOLOGY (AMB) 12/09/2021 12/16/2021 12/23/2021 12/30/2021 CISplatin (Platinol) IV 83 mg 82 mg 82 mg 81 mg Medical oncology checkup at the beginning of week 5 concurrent chemoradiation with curative intent. He has been tolerating chemoradiation as well as can be expected. Mucositis has been increasing. He has been using oxycodone tablets 5 mg every 4 hours; pain is significant at the end of the dosing interval. He has not been taking anything of substance by mouth; a bit of water occasionally. He developed increased gag sensitivity, and feels that when he tries to swallow much of anything he feels nauseated and about to vomit. Chemotherapy has caused some nausea but by history he is more troubled by gagging than persistent, chemical nausea. He has had some tinnitus, no worse than grade 1 above baseline. No peripheral neuropathic symptoms. He has been using his feeding tube quite effectively, and has maintained his weight. He is getting copious hydration mostly through the feeding tube. Bowels remain sluggish, requiring MiraLAX every few days. He is getting more skin irritation in the radiation field as expected; he was using Aquaphor but is switched back to Phytoplex which he finds less greasy. Activity level is down somewhat, but he is still performing ADLs independently; my estimate of his KPS is now 80. Physical exam: He is alert, in no acute distress, in good spirits Oral exam shows well demarcated grade 3 mucositis from the soft palate rearward. The right tonsil tumor is now nearly flat, with overlying erythema and some exudative mucositis. I do not see any obvious tumor in the left tonsil. No signs of candidiasis Neck exam is free of palpable adenopathy Skin in the radiation field shows grade 1 erythema. The lungs are clear Mediport is benign Cardiac exam normal Abdomen benign, no hepatosplenomegaly or masses. The G-tube site is clean Extremities normal, no clubbing cyanosis or edema Neurologic exam is grossly normal including cranial nerves. Reflexes 2+. Labs: White count 3.8 with ANC 2880; hemoglobin 12.8, platelets 145. Sodium 135, potassium 4.2; BUN 18, creatinine 0.9. Nonfasting glucose 118. Magnesium 1.8. Hepatic enzymes normal. Albumin has dropped slightly to 3.0. Impression: Expected levels of toxicity from curative intent chemoradiation. Mucositis pain is making it difficult to have him swallow adequate pain medication. Plan: 1. Proceed with radiation and chemotherapy per protocol NRG [id number]. 2. Switch to liquid oxycodone. I recommended moving the dose up to 7.5 mg every 4 hours as needed, and told him that we are likely to need to increase this further to 10 mg every 4 hours. 3. I will send a prescription for ondansetron oral dissolving tablets for nausea control as needed, either dissolved in the mouth or dissolved and infused into the G-tube. 4. We encouraged him to use the lidocaine/Benadryl/antiacid mixture which he had been avoiding because it gagged him, but recommended that he swish and spit rather than try to swallow it. Kale Sy MD, FACP wallpaper consultant Hematology/Oncology Section [facility] [address] Voice recognition software used for this note; please excuse sound engineer audio control errors. I personally reviewed past medical, surgical, family medical histories, reviewed current medications, vital signs, labs, and performed full review of systems. These are documented below the narrative for clarity and succinctness. Outpatient Medications Marked as Taking for the 01/05/22 encounter (Office Visit) with Jamal Sy MD Medication Sig Dispense Refill ??? oxyCODONE (Roxicodone) 5 mg Tablet Take 1 tablet by mouth every 4 hours as needed for Pain. 60 tablet 0 ??? polyethylene glycoL (Miralax) 17 gram/dose Powder Take 17 g by mouth daily. ??? emollient combination no.111 (REMEDY PHYTOPLEX MOISTURIZER TOP) Apply topically. Apply to area of radiation twice a day but no less than 2 hours before a treatment. ??? prochlorperazine (Compazine) 10 mg Tablet Take 1 tablet by mouth every 6 hours as needed for Nausea. 30 tablet 3 ??? diclofenac (Voltaren) 1 % Gel Apply topically. ??? fluticasone propionate (FLONASE) 50 mcg/actuation Brodnax, Suspension by Each Nare route daily. Review of Systems: Review of systems is negative for other SITE INTERPRETER, bone, pulmonary, cardiac, GI, , extremity, neurologic, endocrine, skin, constitutional, emotional, or functional problems. Vitals Flowsheet Row Office Visit from 12/31/2021 in Radiation Oncology at [facility] Weight 87 kg (191 lb 12.8 oz) [with shoes] Temp 37.1 ??C (98.8 ??F) Temp src Temporal Heart Rate 76 Resp 18 BP 119/68 BP Location Left arm Patient Position Sitting SpO2 97 % Body surface area is 2.02 meters squared. Wt Readings from Last 3 Encounters: 01/05/22 84.2 kg (185 lb 9.6 oz) 12/31/21 87 kg (191 lb 12.8 oz) 12/30/21 84.6 kg (186 lb 9.6 oz) No results found for this or any previous visit (from the past 72 hour(s)). ++++++++++++++++++++++++++++++++++++++++++++++++++++ documented in this encounter Plan of Treatment Upcoming Encounters Date Type Specialty Care Team Description 01/26/2022 Infusion Hematology and Oncology 01/26/2022 Office Visit Hematology and Oncology Mirta Sy MD [facility] DR ONCOLOGY DEPT. 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
--- OUTSIDE RECORDS SUMMARY | 2022-01-24 03:57 | XMS_ITS | Encounter Summary ---
:1935 Author Organization [place] [address] Care Team Providers Name Role Phone Amelia Gomes APRN Primary Care Provider [phone] Encounter Details Date Type Department Care Team Description 12/29/2021 [facility] Tonsil cancer [address] HEMATOLOGY [place] [address] ONCOLOGY [phone] [place], [place] [address] (Wo rk) Social History Tobacco Use Types [...] Progress Notes Page, Gris Ward, RD - 12/29/2021 3:00 PM EDT Nutrition Note Spoke with patient prior to his appointment with Dr. Sy today. He has completed three weeks of concurrent chemoradiation therapy for tonsil cancer. He has his fourth chemotherapy infusion tomorrow 12/30. He is continuing to struggle with taste changes. He started taking 5 mg oxycodone every 4 hours as needed for pain last week. Over the weekend, he drank 2 Ensure Plus (his only PO intake besides water) and put 2 Nutren 1.5 viag-tube. We had discussed going up to 5 cartons Nutren 1.5 and/or Ensure Plus per day but he did not try this. Dr. Sy advised to double up on Miralax as he has not had a BM in two days. Wt Readings from Last 10 Encounters: 12/29/21 84.9 kg (187 lb 3.2 oz) 12/24/21 88.3 kg (194 lb 9.6 oz) 12/23/21 85.3 kg (188 lb) 12/22/21 86 kg (189 lb 9.6 oz) 12/19/21 88.2 kg (194 lb 6.4 oz) 12/17/21 88.2 kg (194 lb 6.4 oz) 12/16/21 87.4 kg (192 lb 9.6 oz) 12/15/21 88 kg (194 lb) 12/12/21 89.4 kg (197 lb) 12/10/21 90.9 kg (200 lb 6.4 oz) 09/17/21 93.4 kg (206 lb) BMI 27.54 12/24 boots on--weight likely inaccurate 12/09 194# start of treatment 2# loss over past week (1.3% body weight) - not significant 7# loss since start of treatment 3 weeks ago (3.6% body weight) - not significant 19# loss over the past 4 months (9.2% body weight) - significant Diet: 2 Ensure Plus per day (vanilla or strawberry). This provides 700 kcal, 32 g protein. He is drinking some water as well, though less than usual. His biggest obstacle to PO intake is taste. Enteral: Taking 2 cartons Nutren 1.5 per day (750 kcal, 34 g protein, 382 ml water) via PEG tube which was placed on Total daily intake: 1450 kcal, 66 g protein Medications: Oxycodone prn, Miralax daily, compazine prn, tylenol prn, saw palmetto, krill oil, simvastatin, allopurinol ?? Patient started concurrent treatment with weekly cisplatin and daily radiation on 12/09/21. ?? Labs on 12/29: Ca 8.9, BG 158H, BUN 26, Creat 1.1, Alb 3.1L, TBili 0.8, K 4.5, AST 15, ALT 23, Mg 2.1 Nutrition Problem: Involuntary weight loss related to tonsil cancer as evidenced by 2# loss over past week (1.3% body weight) - not significant, 7# loss since start of treatment 3 weeks ago (3.6% body weight) - not significant and 19# loss over the past 4 months (9.2% body weight) - significant Estimated needs based on 84.6 [id number] kcals (25-30 kcal/kg) 885-128 g protein (1-1.5 g/kg) 1 ml/kcal fluids ?? Recommendations: * Encouraged increasing to 5 cartons per day of Nutren 1.5 and Ensure Plus. * Encouraged adequate hydration, including additional 1-1.5 L fluid per day via tube/mouth. Will f/u on Tuesday 01/02 documented in this encounter Plan of Treatment Upcoming Encounters Date Type Specialty Care Team Description 01/26/2022 Infusion Hematology and Oncology 01/26/2022 Office Visit Hematology and Oncology Mirta Sy MD [facility] DR ONCOLOGY DEPT. [place], [place] [address] (Wo rk) 01/28/2022 Office Visit Radiation Oncology Chilango Michel MD [facility] RADIATION ONCOLO GY [place], [place] [address] (Wo rk) 01/29/2022 Infusion Hematology and Oncology 02/05/2022 Infusion Hematology and Oncology documented as of this encounter Visit Diagnoses Diagnosis Tonsil cancer Malignant neoplasm of tonsil documented in this encounter Care Teams Coordinator Of Evaluation Relationship Specialty Start Date End Date Amelia Gomes APRN PCP - General Family Medicine 10/17/20 [address] [place] [address] documented as of this encounter
--- OUTSIDE RECORDS SUMMARY | 2022-01-24 03:57 | XMS_ITS | Encounter Summary ---
:1935 Author Organization [facility] [place] [address] Care Team Providers Name Role Phone Amelia Gomes APRN Primary Care Provider [phone] Encounter Details Date Type Department Care Team Description 12/31/2021 Office Visit Radiation Oncology at [facility] Marito MD Tonsil cancer [address] RADIATION ONCOLOGY [place], [place] [id number] [phone] Social History Tobacco Use Types Packs/Day Years [...] place to sleep or slept in a assisted (including now)? Sex Assigned at Date Recorded Not on file documented as of this encounter Last Filed Vital Signs Vital Sign Reading Time Taken Comments Blood Pressure 119/68 12/31/2021 4:38 PM EDT Pulse 76 12/31/2021 4:38 PM EDT Temperature 37.1 ??C (98.8 ??F) 12/31/2021 4:38 PM EDT Respiratory Rate 18 12/31/2021 4:38 PM EDT Oxygen Saturation 97% 12/31/2021 4:38 PM EDT Inhaled Oxygen Concentration - - Weight 87 kg (191 lb 12.8 oz) 12/31/2021 4:38 PM EDT wi th shoes Height - - Body Mass Index 28.31 12/30/2021 8:19 AM EDT documented in this encounter Progress Notes Marito Michel MD - 12/31/2021 4:30 PM EDT Images from the original note were not included. [facility] Medicine Radiation Oncology Radiation [...] CISplatin (Platinol) IV 82 mg 81 mg Treatment Plan Images: Treatment Progress: 30.64 Gy in 17 fractions Setup films checked and approved. Clinical Course: Interval History: Symptoms Intervention Pain Increasing pain posterior oropharynx, R > L, rated as a 3-4/10. Worse with eating Oxycodone every four hours Secretions / Dryness High level dysgeusia, moderate xerostomia. Moderate dysgeusia. Using BSSW, Healios. Nutrition / G Tube Small volume by mouth, soft solids; using G tube for majority of nutrition (3-5 feeds/day) Swallowing Function No issues Skin Mild pruritis neck Phytoplex GI N/V No issues Bowel Function Mild constipation Miralax Other Exam: Patient Vitals for the past 24 hrs: Temp Pulse Resp BP SpO2 12/31/21 1638 37.1 ??C (98.8 ??F) 76 18 119/68 97 % Weight : 90.1 kg initial Change: 88.2 => 87 SKIN: no skin erythema HEENT: mild erythema posterior oropharynx GI: g tube c/d/i Performance Status: KPS 90-100% ECOG 0 Fully active, able to carry on all pre-disease performance without restriction CTCAE TOXICITY GRADES (see below for knapp): Site Grade Skin 0 Xerostomia 2 Pharyngeal Mucositis 3 Dysphagia 2 Hoarseness 0 Impression/Plan: Impression: Increasing toxicity Plan: ?? Continue radiation therapy as planned. ?? Pain control: ?? Tylenol prn ?? Oxycodone 5 mg prn ?? Skin: topical cream prn ?? Mucositis: ?? Pain control: see above ?? Oral hygiene consisting of baking soda/salt rinse at least 8 times daily ?? Alimentation: chain mortiser operator following ?? Weight stable, mix of G tube and oral intake at this time ?? GI: ?? NV: No issues ?? Bowels: Mild constipation. Miralax prn. No orders of the defined [...] predominantly whispered speech NA ??? National Cancer [place] (NCI) Comprehensive Cancer Center ??? [employer] Commission on Cancer (ACS López) Accredited Cancer Program ??? [employer] (ACR) Accredited Radiation Oncology Program documented in this encounter Plan of Treatment Upcoming Encounters Date Type Specialty Care Team Description 01/26/2022 Infusion Hematology and Oncology 01/26/2022 Office Visit Hematology and Oncology Mirta Sy MD [facility] ONCOLOGY DEPT. [place], [place] [address] (Wo alondra) 01/28/2022 Office Visit Radiation Oncology Chilango Michel MD [facility] [place], [place] [address] (Wo rk) 01/29/2022 Infusion Hematology and Oncology 02/05/2022 Infusion Hematology and Oncology documented as of this encounter Visit Diagnoses Diagnosis Tonsil cancer Malignant neoplasm of tonsil documented in this encounter Care Teams Scrub Woman Relationship Specialty Start Date End Date Amelia Gomes APRN PCP - General Family Medicine 10/17/20 [address] [place] [address] documented as of this encounter
--- OUTSIDE RECORDS SUMMARY | 2022-01-24 03:57 | XMS_ITS | Encounter Summary ---
:1935 Author Organization [facility] [place] [address] Care Team Providers Name Role Phone Amelia Gomes APRN Primary Care Provider [phone] Encounter Details Date Type Department Care Team Description 12/16/2021 Notes Only [facility] OFFICE OF CARE [address] [place] [phone] Social History Tobacco Use Types Packs/Day Years [...] place to sleep or slept in a penitentiary (including now)? Sex Assigned at Date Recorded Not on file documented as of this encounter Progress Notes Lizette Benson MSW - 12/16/2021 9:16 AM EDT Reason for Referral: Brief assessment of social and emotional needs. Met with pt during his infusionvisit today to introduce myself and role of medical social consultant to assess/address barriers to getting to and through treatments; address support needs and connect with community services and resources as needed. Family/Social Supports: Pt identified his as his primary support. They have a son who lives in the area. Living Situation/Daily Activities/Transportation: Pt manages his daily chores and activities. He lives local to this facility and does not expect any issues with transportation. 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 He has Medicare and AARP for insurance. He did not indicated any concerns re finances or insurance. Advance Directives: Pt stated he has completed his advance directive and requested a copy for his record. Utilization of Community Resources: None a this time. Adjustment to Illness/Mental Health Concerns: Pt indicated he is coping as best he can. He is anxious to get his concurrent treatments stated as he indicated this all started last April. He indicatehis was doing her best too. They have support from their son. Offered support. Identified Needs: Pt did not identify any specific needs at this time. Referrals: None at this time. Social Work Interventions: Brief assessment Supportive Counseling Plan: Informed pt of COLLEGE SPORTS ASSISTANT availability and contact information. Will follow to assess/address psychosocial needs. CLAY Moreno, BARREL TESTER AND DRAINER, OSW-C Welding Teacher [facility] documented in this encounter Plan of Treatment Upcoming Encounters Date Type Specialty Care Team Description 01/26/2022 Infusion Hematology and Oncology 01/26/2022 Office Visit Hematology and Oncology Mirta Sy MD [facility] DR ONCOLOGY DEPT. [place], [place] [address] (Wo rk) 01/28/2022 Office Visit Radiation Oncology Chilango Michel MD [facility] RADIATION ONCOLO [place]Y [place], [place] [address] (Wo rk) 01/29/2022 Infusion Hematology and Oncology 02/05/2022 Infusion Hematology and Oncology documented as of this encounter Visit Diagnoses Not on filedocumented in this encounter Care Teams Software Qa Manager Relationship Specialty Start Date End Date Amelia Gomes APRN PCP - General Family Medicine 10/17/20 [facility] [address] [place] [address] documented as of this encounter
--- OUTSIDE RECORDS SUMMARY | 2022-01-24 03:57 | XMS_ITS | Encounter Summary ---
:1935 Author Organization [facility] [place] [address] Care Team Providers Name Role Phone Amelia Gomes Sarina CARLOS Primary Care Provider [phone] Encounter Details Date Type Department Care Team Description 01/06/2022 External Results Pharmacy Kale Sy MD [facility] [place] [address] ONCOLOGY DEPT. [phone] [place], [place] [address] (Wo rk) Social History Tobacco [...] Visit Hematology and Oncology Mirta Sy MD [facility] DR ONCOLOGY DEPT. [place], [place] [address] (Wo rk) 01/28/2022 Office Visit Radiation Oncology Chilango Michel MD [facility] RADIATION ONCOLO [place], [place] [address] (Wo rk) 01/29/2022 Infusion Hematology and Oncology 02/05/2022 Infusion Hematology and Oncology documented as of this encounter Procedures Procedure Name Priority Date/Time Associated Diagnosis Comme nts CLINICAL TRIAL SCAN Routine 01/06/2022 CLINICAL TRIAL SCAN Routine 01/05/2022 documented in this encounter Results Scan Doc: Clinical Trial (01/06/2022) Narrative This result has an attachment that is no t available. Kale Sy MD MEDIA MGR SCAN EXT ORDR/RSLT Scan Doc: Clinical Trial (01/05/2022) Kale Sy MD MEDIA MGR SCAN EXT ORDR/RSLT documented in this encounter Visit Diagnoses Not on filedocumented in this encounter Care Teams Patient Financial Services Manager Relationship Specialty Start Date End Date Amelia Gomes APRN PCP - General Family Medicine 10/17/[address] [place] [address] documented as of this encounter
--- OUTSIDE RECORDS SUMMARY | 2022-01-24 03:57 | XMS_ITS | Encounter Summary ---
:1935 Author Organization [facility] [place] [address] Care Team Providers Name Role Phone MateoHayde simpsonleonarda Branch APRN Primary Care Provider [phone] Reason for Visit Reason Comments Chemotherapy [id number] Cisplatin Encounter Details Date Type Department Care Team Description 12/16/2021 Infusion Hematology Oncology at [facility] Tonsil cancer [address] [place] [address] [phone] Social History Tobacco Use Types [...] Sign Reading Time Taken Comments Blood Pressure 130/61 12/16/2021 8:27 AM EDT Pulse 101 12/16/2021 8:27 AM EDT Temperature 36.7 ??C (98.1 ??F) 12/16/2021 8:27 AM EDT Respiratory Rate 18 12/16/2021 8:27 AM EDT Oxygen Saturation 98% 12/16/2021 8:27 AM EDT Inhaled Oxygen Concentration - - Weight 87.4 kg (192 lb 9.6 oz) 12/16/2021 8:27 AM EDT Height 175.3 cm (5' 9.02) 12/16/2021 8:27 AM EDT Body Mass Index 28.43 12/16/2021 8:27 AM EDT documented in this encounter Progress Notes Sepideh Nelson RN - 12/16/2021 8:30 AM EDT INFUSION THERAPY ADMINISTRATION NOTES DIAGNOSIS: Tonsil Cancer CYCLE #1: Day 8 REASON FOR VISIT: Cisplatin -- Protocol [id number] SUBJECTIVE Pino Wong offers no complaints and is ready to start treatment today. OBJECTIVE LAB DATA: Done 12/15/21 at [facility] and WN for treatment today. IV ACCESS: Implanted port Pre administration: Chemotherapy orders independently verified for drug name, route, and dosage per patient's height, weight and BSA by Sepideh Walker RN & On-site pharmacist. REACTIONS (DESCRIPTION, TIME, INTERVENTION AND EFFECTIVENESS) none ASSESSMENT Pino was awake, alert and tolerated treatment well. Mediport flushed with 20cc NS and 500 units heparin prior to de-accessing port. PLAN Return to clinic next week. documented in this encounter Plan of Treatment Upcoming Encounters Date Type Specialty Care Team Description 01/26/2022 Infusion Hematology and Oncology 01/26/2022 Office Visit Hematology and Oncology Mirta Sy MD [facility] DR ONCOLOGY DEPT. [place], [place] [address] (Wo rk) 01/28/2022 Office Visit Radiation Oncology Chilango Michel MD [facility] RADIATION ONCOLO GY [place], [place] [address] (Wo rk) 01/29/2022 Infusion Hematology and Oncology 02/05/2022 Infusion Hematology and Oncology documented as of this encounter Visit Diagnoses Diagnosis Tonsil cancer Malignant neoplasm of tonsil documented in this encounter Administered Medications Inactive Administered Medications - up to 3 most recent administrations Medication Order MAR Action Action Date Dose Rate Site aprepitant (CINVANTI) injection Given 12/16/2021 12:04 PM EDT 13 0 mg Emul 130 mg 130 mg, Intravenous, ONCE, 1 dose, On Wed12/16/21 at 1215, prior to CISPlatin. Alternative administration of IV push over 2 minutes is a recommendation from the medical imaging tech., Routine CISplatin (Platinol) 82 mg in sodium New Bag 12/16/2021 1:13 P M EDT 82 mg 332 mL/hr chloride 0.9% 332 mL infusion 82 mg (rounded from 82.4 mg), Intravenous, ONCE, 1 dose, On Wed12/16/21 at 1215, Administer over 60 Minutes, Warning Vesicant/Irritant Medication dexAMETHasone (Decadron) (10 mg/mL) injection Given 12:02 PM EDT 10 mg 10 mg 10 mg, Intravenous, ONCE, 1 dose, On Wed12/16/21 at 1215, 60 minutes prior to CISPlatin magnesium sulfate 1 g in dextrose 5% New Bag 12/16/2021 1:26 P M EDT 2 g 100 mL/hr 100 mL infusion 2 g, Intravenous, ONCE, 1 dose, On Wed12/16/21 at 1215, Administer over 60 Minutes, Start 2 hours after CISplatin. palonosetron (Aloxi) (0.05 mg/mL) injection Given 11/28 12:03 PM EDT 0.25 mg 0.25 mg 0.25 mg, Intravenous, ONCE, 1 dose, On e 12/16/21 at 1215, prior to CISPlatin, Routine sodium chloride 0.9% infusion New Bag 12/16/2021 8:45 AM EDT 1,000 mL/hr 1000 mL/hr 1,000 mL/hr, Intravenous, CONTINUOUS, Starting on Wed12/16/21 at 1215, Until Wed12/16/21 at 1314, For 1 hour before CISplatin. sodium chloride 0.9% with New Bag 12/16/2021 1:13 PM EDT 500 mL/hr 500 mL/hr potassium chloride 20 mEq infusion 500 mL/hr, Intravenous, CONTINUOUS, Starting on Wed12/16/21 at 1215, Until Wed12/16/21 at 1414, For 2 hours after CISplatin. May start post-hydration concurrently with CISplatin. Warning Vesicant/Irritant Medication documented in this encounter Care Teams Concrete Handler Relationship Specialty Start Date End Date Amelia Gomes APRN PCP - General Family Medicine 10/17/[address] [place] [address] documented as of this encounter
--- OUTSIDE RECORDS SUMMARY | 2022-01-24 03:57 | XMS_ITS | Encounter Summary ---
:1935 Author Organization [facility] [place] [address] Care Team Providers Name Role Phone Amelia Gomes Sarina CARLOS Primary Care Provider [phone] Reason for Referral Speech Therapy (Routine) - Closed Specialty Diagnoses / Procedures Referred By Contact Refer red To Contact Speech Pathology / Diagnoses Tonsil cancer Kale Sy MD [facility] Hematology and Oncology [address] ONCOLOGY DEPT. [address] [place] [address] Referral ID Status Reason Start Date Expiration Date Visits V isits Requested Authorized [id number] Closed Evaluate and 12/15/2021 12/15/2022 12 12 Treat Encounter Details Date Type Department Care Team Description 12/15/2021 Office Visit Hematology/Oncology at Kale Gilmore MD Tonsil cancer [address] ONCOLOGY DEPT. [place], [place] [phone] Social History Tobacco Use Types Packs/Day Years [...] Sign Reading Time Taken Comments Blood Pressure 128/69 12/15/2021 1:49 PM EDT Pulse 86 12/15/2021 1:49 PM EDT Temperature 36.5 ??C (97.7 ??F) 12/15/2021 1:49 PM EDT Respiratory Rate 12 12/15/2021 1:49 PM EDT Oxygen Saturation 97% 12/15/2021 1:49 PM EDT Inhaled Oxygen Concentration - - Weight 88 kg (194 lb) 12/15/2021 1:36 PM EDT Height 175.3 cm (5' 9.02) 12/15/2021 1:36 PM EDT Body Mass Index 28.64 12/15/2021 1:36 PM EDT documented in this encounter Progress Notes Kale Sy MD - 12/15/2021 1:45 PM EDT Hematology/Oncology Clinic [facility] Patient Active Problem List Diagnosis ??? 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 Enrolled on [facility] [id number], arm 4: weekly cisplatin with concurrent radiation 70 Gy instituted 12/09/2021 ??? Gilbert's syndrome ??? History of kidney stones Multiple urate stones Chronic allopurinol ??? S/P TKR (total knee replacement), bilateral ??? Hypercholesterolemia ??? Actinic keratosis ??? Filiform wart ??? AK (actinic keratosis) ??? SK (seborrheic keratosis) ??? History of nonmelanoma skin cancer BCC- [place] [facility] followup. Starting week #2 concurrent chemoRT for tonsil cancer. Doing well. Side effects as noted by . He does endorse some occasional tingling of the fingers, but by history this is positional and always transient. No persistent lower extremity neuropathy. No significant nausea, but he is usually regular bowels have been a bit sluggish since starting chemotherapy. Energy level good, KPS 90, slightly more tired for 3 days after chemo Exam: Looks well Oral cavity shows no objective mucositis. Right tonsil tumor slightly smaller, approximately 1.5 x 1cm, erythematous none fungating surface. Left tonsil as before is a roughly 1/2 cm bulbous appearance. No signs of bleeding. Neck exam shows a 1 cm deep right zone 2 node, nontender. The lungs are clear Cardiac exam normal Mediport benign Abdomen benign without hepatosplenomegaly or masses. G-tube site shows as before some erythema just under the skin bumper, no overt signs of infection. The bumper appeared a bit too tight and I loosened it by about 3 mm. Extremities are normal, without clubbing cyanosis or edema Neurologic exam normal, cranial nerves normal. Hearing is functionally stable and intact. Labs: External lab results will be scanned into the EMR. Creatinine is stable at 1.0, BUN 18. Albumin 3.1. Hepatic enzymes normal. Electrolytes normal, magnesium 1.8. CBC from 12/08: white count 5.91, hemoglobin 14.0, platelets 216. Impression: He is tolerating curative intent chemoradiation quite well so far. By exam I believe I can see some hints of early right tonsil tumor response. Plan: 1. Proceed with chemotherapy dose #2 tomorrow, and ongoing radiation as per protocol 2. Recommended that he keep track of bowels, and use MiraLAX liberally should he go more than 1 day without a bowel movement. 3. Continue standard throat care with baking soda/salt solution, and he will continue using the glutamine rinse and dietary supplement Healios.. 4. Speech-Language Pathology consultation for exercise regimen. Kale Sy MD, FACP sour bleaching pleater Hematology/Oncology Section [facility] [place] [address] Voice recognition software used for this note; please excuse career technical education teacher errors. I personally reviewed past medical, surgical, family medical histories, reviewed current medications, vital signs, labs, and performed full review of systems. These are documented below the narrative for clarity and succinctness. Outpatient Medications Marked as Taking for the 12/15/21 encounter (Office Visit) with Kale Sy MD Medication Sig Dispense Refill ??? emollient combination no.111 (REMEDY PHYTOPLEX MOISTURIZER TOP) Apply topically. Apply to area of radiation twice a day but no less than 2 hours before a treatment. ??? Sodium Fluoride (DentaGel) 1.1 % Gel Place 5 mLs onto teeth nightly. 56 g PRN ??? acetaminophen (TYLENOL) 650 mg Tablet Sustained Release Take 650 mg by mouth every 8 hours as needed for Pain. Do not exceed 6 tabs in 24 hours ??? diclofenac (Voltaren) 1 % Gel Apply topically. ??? SAW PALMETTO ORAL Take by mouth. ??? KRILL OIL ORAL Take by mouth. ??? fluticasone propionate (FLONASE) 50 mcg/actuation Supai, Suspension by Each Nare route daily. ??? simvastatin (ZOCOR) 80 mg tablet 80MG, PO, Every other day ??? allopurinol (ZYLOPRIM) 300 mg tablet 300mg, PO, QAM Review of Systems: Review of systems is negative for other CLOCK AND WATCH HANDS MOUNTER, bone, pulmonary, cardiac, GI, , extremity, neurologic, endocrine, skin, constitutional, emotional, or functional problems. Vitals Flowsheet Row Office Visit from 12/15/2021 in Hematology/Oncology at [facility] Weight 88 kg (194 lb) Body surface area is 2.07 meters squared. Wt Readings from Last 3 Encounters: 12/15/21 88 kg (194 lb) 12/12/21 89.4 kg (197 lb) 12/10/21 90.9 kg (200 lb 6.4 oz) No results found for this or any previous visit (from the past 72 hour(s)). ++++++++++++++++++++++++++++++++++++++++++++++++++++ Kaley Lee RN - 12/15/2021 1:45 PM EDT RESEARCH NURSE OFFICE NOTE Week 2 (day 8) >>>tomorrow 12/15/2021 Study Number:[id number] Description:Comparing high-dose cisplatin every three weeks to low-dose cisplatin weekly when combined with radiation for patients with advanced head and neck cancer. Randomized to weekly low dose cisplatin SUBJECTIVE Pino Wong presented to hem-onc clinic for weekly cisplatin as per protocol. Pt was also evaluated by Yossi today please see his note. The adverse events on RN AE table were reviewed and updated accordingly. STUDY ASSESSMENTS COMPLETED Patient states he is in good health. 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 He also manages a large lawn he keepsmowed. He mentions some pain right side throat, tonsil area . Comes and goes . Still doesn't interfere witheating and he grades it 5/10. The same He has developed some dryness in mouth . Has started the saltwater baking soda rinses. Confirmed with they are using the recipe our clinic provides. He has a slight loss of taste that he is beginning to notice. Skin surrounding feeding tube is red. appears irritated. Dr Sy adjusted it so that it was not so tight against skin. He also checked balloon. states she is flushing it twice a day. States he has numbness in right hand when he wakes up in AM. It involves all fingers. This goes awaywhen he moves it . He states he has some chronic bilateral numbness in his feet ( he denied it last week) He can not recall what his PCP call this condition. He considers it mild. PREVIOUS CYCLE SUPPLIES & MEDICATION COLLECTED ??? n/a MEDICATION DISPENSED n/a SUPPLIES DISPENSED ??? n/a Unsolicited AE/SIDE EFFECT MONITORING # AE Grade (CTCAE v. ) Start date Stop Date Study Related Intervention/Outcome 1 dysgeusia 1 Has not affected his appetite 2 constipation 1 12/14/21 3 Increased oral mucous, secretions 1 12/15/21 << solicited AEs >> 1 anemia 0 0 12/09/21 12/15/21 2 Ear pain 0 0 12/09/21 12/15/21 3 Hearing impairment 0 0 12/09/21 12/15/21 4 Middle ear inflammation 0 0 12/09/21 12/15/21 5 tinnitus 0 0 12/09/21 12/15/21 6 vertigo 0 0 12/09/21 12/15/21 7 Vestibular disorder 0 0 12/09/21 12/15/21 8 Dry mouth 1 12/15/21 Using salt water/baking soda rinses 9 dysphagia 0 0 9106/1712/15/21 10 Mucositis oral 0 0 12/09/21 12/15/21 11 Nausea 0 0 12/09/21 12/15/21 12 vomiting 0 0 12/09/21 12/15/21 13 fatigue 0 0 12/09/21 12/15/21 14 pain 1 1 1 04/202112/09/21 12/15/21 Right side of throat, tonsil area , pain intermittent 08/05 15 Dermatitis radiation 0 0 12/09/21 12/15/21 16 ANC decreased 0 0 12/09/21 12/15/21 17 Weight loss 0 0 12/09/21 12/15/21 18 anorexia 0 0 12/09/21 12/15/21 19 dehydration 0 0 12/09/21 12/15/21 20 Peripheral sensory neuropathy 1 12/15/21 Right hand and some in bilateral feet 21 Acute kidney injury 0 0 12/09/21 12/15/21 22 Pharyngeal mucositis 0 0 12/09/21 12/15/21 EDUCATION PROVIDED Pt instructed to call clinic with any questions or concerns. For Weekend/Holiday coverage while our clinic is closed, the patient was instructed to call [facility] at [phone] and ask for the residential direct support professional radiation oncologist. Patient verbalized understanding. Surveys: None today . PLAN 1. Subject agrees to continue on study HN009 per protocol. Daily XRT 2. Chemo tomorrow; week 2 . 3. Ordered speech therpapy referral today. 4. Waiting for audiogram appointment. [place] is checking to see if it can be done locally in [facility]. Patient verbalizes understanding of, and agreement with, plan. Advised to contact this office for any questions/concerns, as well as for any new or worsening symptoms. documented in this encounter Plan of Treatment Upcoming Encounters Date Type Specialty Care Team Description 01/26/2022 Infusion Hematology and Oncology 01/26/2022 Office Visit Hematology and Oncology Mirta Sy MD [facility] DR ONCOLOGY DEPT. [place], [place] [address] (Wo rk) 01/28/2022 Office Visit Radiation Oncology Chilango Michel MD [facility] RADIATION ONCOLO [place], [place] [address] (Wo rk) 01/29/2022 Infusion Hematology and Oncology 02/05/2022 Infusion Hematology and Oncology Scheduled Referrals Name Type Priority Associated Diagnoses Order S chedule Referral to Speech Outpatient Referral Routine Tonsil cancer O rdered: Therapy 12/15/2021 documented as of this encounter Visit Diagnoses Diagnosis Tonsil cancer Malignant neoplasm of tonsil documented in this encounter Care Teams Bonding Molder Relationship Specialty Start Date End Date Amelia Gomes APRN PCP - General Family Medicine 10/17/[address] [place] [address] [address] [place] [address] documented as of this encounter
--- OUTSIDE RECORDS SUMMARY | 2022-01-24 03:57 | XMS_ITS | Encounter Summary ---
:1935 Author Organization [facility] [place] [address] Care Team Providers Name Role Phone Amelia Gomes Sarina CARLOS Primary Care Provider [phone] Reason for Referral Speech Therapy (Routine) - Closed Specialty Diagnoses / Procedures Referred By Contact Refer red To Contact Speech Therapy Diagnoses Tonsil cancer Kale Sy MD [facility] Hem Onc Office [facility] Osorio R [address] [place] [address] [place] [phone] Fax: Referral ID Status Reason Start Date Expiration Date Visits V isits Requested Authorized [id number] Closed Evaluate and 12/16/2021 12/16/2022 12 12 Treat Encounter Details Date Type Department Care Team Description 12/15/2021 Orders Only Hematology/Oncology at Kale Gilmore MD Tonsil cancer [address] ONCOLOGY DEPT. [place], [place] [phone] Social History Tobacco Use Types Packs/Day Years [...] Hematology and Oncology Mirta Sy MD [facility] ONCOLOGY DEPT. [place], [place] [address] (Wo rk) 01/28/2022 Office Visit Radiation Oncology Chilango Michel MD [facility] RADIATION ONCOLO [place], [place] [address] (Wo alondra) 01/29/2022 Infusion Hematology and Oncology 02/05/2022 Infusion Hematology and Oncology Scheduled Referrals Name Type Priority Associated Diagnoses Order S chedule Referral to Speech Outpatient Referral Routine Tonsil cancer O rdered: Therapy 12/16/2021 documented as of this encounter Results RECIST 1.1 (12/17/2021 9:41 [...] have questions please contact the health career advisor that requested your imaging first. ? Electronically signed by: Kevin Quintanilla [facility] ([phone]), at 12/17/2021 10:42 AM Narrative 12/17/2021 10:42 [...] have questions please contact the health career advisor that requested your imaging first. 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
--- OUTSIDE RECORDS SUMMARY | 2022-01-24 03:57 | XMS_ITS | Encounter Summary ---
:1935 Author Organization [facility] [place] [address] Care Team Providers Name Role Phone Amelia Gomes APRN Primary Care Provider [phone] Encounter Details Date Type Department Care Team Description 12/30/2021 Notes Only [facility] OFFICE OF CARE [address] [place] [phone] Social History Tobacco Use Types Packs/Day Years [...] encounter Progress Notes Lizette Benson MSW - 12/30/2021 9:06 AM EDT Follow up with Pino during his infusion visit today. He indicated he will be half way through histreatments tomorrow. It is becoming more challenging for him which he was warned about so he is not surprised. He continues to manage day to day at home with the support of his . He lives local so transportation is not a concern. He has talked with our lance crewmember/mlrs sergeant as food is not very tasty for him. Pino did not identify any new needs today. Offered support. Reminded pt of SHRINKING MACHINE OPERATOR availability and will continue to follow for support and resources. Brief assessment Supportive Counseling documented in this encounter Plan of Treatment Upcoming Encounters Date Type Specialty Care Team Description 01/26/2022 Infusion Hematology and Oncology 01/26/2022 Office Visit Hematology and Oncology Mirta Sy MD [facility] ONCOLOGY DEPT. [place], [place] [address] (Wo rk) 01/28/2022 Office Visit Radiation Oncology Chilango Michel MD [facility] RADIATION ONCOLO [place], [place] [address] (Wo rk) 01/29/2022 Infusion Hematology and Oncology 02/05/2022 Infusion Hematology and Oncology documented as of this encounter Visit Diagnoses Not on filedocumented in this encounter Care Teams Card Services Specialist Relationship Specialty Start Date End Date Amelia Gomes APRN PCP - General Family Medicine 10/17/20 [address] [place] [address] documented as of this encounter
--- OUTSIDE RECORDS SUMMARY | 2022-01-24 03:57 | XMS_ITS | Encounter Summary ---
:1935 Author Organization [facility] [place] [address] Care Team Providers Name Role Phone Amelia Gomes APRN Primary Care Provider [phone] Reason for Visit Reason Comments Chemotherapy [id number] Cisplatin Encounter Details Date Type Department Care Team Description 12/23/2021 Infusion Hematology Oncology at [facility] lbert's syndrome; [facility] Tonsil cancer; [address] History of kidney stones [place], [place] [phone] Social History Tobacco Use [...] Sign Reading Time Taken Comments Blood Pressure 118/64 12/23/2021 8:26 AM EDT Pulse 92 12/23/2021 8:26 AM EDT Temperature 36.1 ??C (97 ??F) 12/23/2021 8:26 AM EDT Respiratory Rate 16 12/23/2021 8:26 AM EDT Oxygen Saturation 99% 12/23/2021 8:26 AM EDT Inhaled Oxygen Concentration - - Weight 85.3 kg (188 lb) 12/23/2021 8:26 AM EDT Height - - Body Mass Index 27.75 12/22/2021 9:00 AM EDT documented in this encounter Progress Notes Mini Anthony RN - 12/23/2021 8:30 AM EDT INFUSION THERAPY ADMINISTRATION NOTES DIAGNOSIS: Tonsil Cancer CYCLE #1: Day 15 REASON FOR VISIT: Cisplatin -- Protocol [id number] SUBJECTIVE Pino Wong reports mild nausea over night, did not require antiemetic. He also notes pain in his throat that he rates 3/10 with swallowing. Food no longer tastes good, still eating and doing 1 carton of tube feed/day. States he has been moving his bowels without the need for miralax OBJECTIVE LAB DATA: Done 12/22/21 at [facility] for treatment today. IV ACCESS: Implanted port Pre administration: Chemotherapy orders independently verified for drug name, route, and dosage per patient's height, weight and BSA by Mini Anthony, REBECCA & On-site pharmacist. REACTIONS (DESCRIPTION, TIME, INTERVENTION AND EFFECTIVENESS) none ASSESSMENT Pino was awake, alert and tolerated treatment well. Mediport flushed with 20cc NS and 500 units heparin prior to de-accessing port. PLAN Return to clinic Wednesday for hydration. documented in this encounter Plan of Treatment Upcoming Encounters Date Type Specialty Care Team Description 01/26/2022 Infusion Hematology and Oncology 01/26/2022 Office Visit Hematology and Oncology Mirta Sy MD [facility] DR ONCOLOGY DEPT. [place], [place] [address] (Wo rk) 01/28/2022 Office Visit Radiation Oncology Chilango Michel MD [facility] RADIATION ONCOLO GY [place], [place] [address] (Wo rk) 01/29/2022 Infusion Hematology [...] Dose Rate Site aprepitant (CINVANTI) injection Given 12/23/2021 8:59 AM EDT 130 mg Emul 130 mg 130 mg, Intravenous, ONCE, 1 dose, On Wed12/23/21 at 0830, prior to CISPlatin. Alternative administration of IV push over 2 minutes is a recommendation from the stucco plasterer., Routine CISplatin (Platinol) 82 mg in New Bag 12/23/2021 10:11 AM EDT 82 m g 332 mL/hr sodium chloride 0.9% 332 mL infusion 82 mg, Intravenous, ONCE, 1 dose, On e 12/23/21 at 0930, Administer over 60 Minutes, Warning Vesicant/Irritant Medication dexAMETHasone (Decadron) (10 mg/mL) injection Given 8:56 AM EDT 10 mg 10 mg 10 mg, Intravenous, ONCE, 1 dose, On Wed12/23/21 at 0830, prior to CISPlatin magnesium sulfate 2 g in sterile water New Bag 12/23/2021 9:05 AM EDT 2 g 25 mL/hr 50 mL infusion 2 g, Intravenous, ONCE, 1 dose, On Wed12/23/21 at 0845, Administer over 120 Minutes palonosetron (Aloxi) (0.05 mg/mL) injection Given 11/28 9:00 AM EDT 0.25 mg 0.25 mg 0.25 mg, Intravenous, ONCE, 1 dose, On Wed12/23/21 at 0830, prior to CISPlatin, Routine sodium chloride 0.9% infusion New Bag 12/23/2021 9:02 AM EDT 1,000 mL/hr 1000 mL/hr 1,000 mL/hr, Intravenous, CONTINUOUS, Starting on Wed12/23/21 at 0830, Until Wed12/23/21 at 0929, For 1 hour before CISplatin. sodium chloride 0.9% infusion New Bag 12/23/2021 10:11 AM EDT 500 mLs 500 mL/hr 500 mL, at 500 mL/hr, Intravenous, ONCE, 1 dose, On Wed12/23/21 at 0930, For 1 hour post-CISplatin. documented in this encounter Care Teams Seam Rubbing Machine Operator Relationship Specialty Start Date End Date Amelia Gomes APRN PCP - General Family Medicine 10/17/[address] [place] [address] documented as of this encounter
--- OUTSIDE RECORDS SUMMARY | 2022-01-24 03:57 | XMS_ITS | Encounter Summary ---
:1935 Author Organization [facility] [place] [address] Care Team Providers Name Role Phone MateoZaid simpsonAmeliamat Branch APRN Primary Care Provider [phone] Encounter Details Date Type Department Care Team Description 01/02/2022 [facility] [address] [phone] Social History Tobacco Use [...] encounter Progress Notes Kaley Lee RN - 01/02/2022 2:03 PM EDT RESEARCH NURSE OFFICE NOTE 01/02/2022 Study Number:[id number] Description:Comparing high-dose cisplatin every three weeks to low-dose cisplatin weekly when combined with radiation for patients with advanced head and neck cancer. Randomized to weekly low dose cisplatin SUBJECTIVE Pino Wong presented to infusion room today for his weekly hydration. He reports that his pain is managed with the oxycodone 1 pill every 4 hours. He has no pain at this moment when not swallowing. He is drinking about 2 Ensures a day and some water. There was a glass of water at his table. He denies light headedness. He took Miralax last night and states his BMs are alright now. His tastes is still very poor and taking nothing by mouth other than the Ensure. All other nutrition is via the G-tube. This is partly from pain , but also taste. His neck is now slightly pink. He states it is a little sore and sometimes itchiy. The moisturizing cream we provided at the clinic is helping. When asked about his energy level, he says he feels like he could get some things done this weekend that need to be done around the house , like get some wood in. For weekend coverage while our clinic is closed, the patient was instructed to call [facility] at [phone] and ask for the sanitation superintendent radiation oncologist if he has any concerning symptoms. Patient verbalized understanding. PLAN 1. Subject agrees to continue on study [id number] per protocol. Daily XRT 2. Next Appt with Dr Sy 01/05 with labs prior. Weekly chemo Saturday 01/06 Patient verbalizes understanding of, and agreement with, plan. Advised to contact this office for any questions/concerns, as well as for any new or worsening symptoms. documented in this encounter Plan of Treatment Upcoming Encounters Date Type Specialty Care Team Description 01/26/2022 Infusion Hematology and Oncology 01/26/2022 Office Visit Hematology and Oncology Mirta Sy MD [facility] DR ONCOLOGY DEPT. [place], [place] [address] (Wo rk) 01/28/2022 Office Visit Radiation Oncology Chilango Michel MD [facility] RADIATION ONCOLO GY [place], [place] [address] (Wo rk) 01/29/2022 Infusion Hematology and Oncology 02/05/2022 Infusion Hematology and Oncology documented as of this encounter Visit Diagnoses Not on filedocumented in this encounter Care Teams Emt Basic Relationship Specialty Start Date End Date Amelia Gomes APRN PCP - General Family Medicine 10/17/[address] [place] [address] [address] [place] [address] documented as of this encounter
--- OUTSIDE RECORDS SUMMARY | 2022-01-24 03:57 | XMS_ITS | Encounter Summary ---
:1935 Author Organization [facility] [place] [address] Care Team Providers Name Role Phone Amelia Gomes Sarina CARLOS Primary Care Provider [phone] Reason for Referral Audiology Exam (Routine) - Authorized Specialty Diagnoses / Procedures Referred By Contact Refer red To Contact Diagnoses Tonsil cancer Kale Sy MD [facility] [place] [address] Referral ID Status Reason Start Date Expiration Date Visits V isits Requested Authorized [id number] Authorized Test Only 12/10/2021 06/08/2022 1 1 Encounter Details Date Type Department Care Team Description 12/10/2021 Orders Only Hematology and Oncology at Kale Sy MD Tonsil cancer [facility] Osor[place] [address] [place] [address] [phone] (Wo rk) Social History Tobacco Use Types [...] [facility] DR ONCOLOGY DEPT. [place], [place] [address] (Wo rk) 01/28/2022 Office Visit Radiation Oncology Chilango Michel MD [facility] RADIATION ONCOLO [place], [place] [address] (Wo rk) 01/29/2022 Infusion Hematology and Oncology 02/05/2022 Infusion Hematology and Oncology Scheduled Referrals Name Type Priority Associated Diagnoses Order S chedule Referral to Outpatient Referral Routine Tonsil cancer Ordered : Audiology 12/10/2021 documented as of this encounter Visit Diagnoses Diagnosis Tonsil cancer Malignant neoplasm of tonsil documented in this encounter Care Teams Concrete Mixing Truck Driver Relationship Specialty Start Date End Date Amelia Gomes APRN PCP - General Family Medicine 10/17/20 [address] [facility] [place] [address] documented as of this encounter
--- OUTSIDE RECORDS SUMMARY | 2022-01-24 03:57 | XMS_ITS | Encounter Summary ---
:1935 Author Organization [facility] [place] [address] Care Team Providers Name Role Phone MateoZaid simpsonAmeliamat Branch APRN Primary Care Provider [phone] Reason for Visit Reason Comments IV Medication Hydration Treatment/Therapy Plan Authorization (Routine) - Authorized Specialty Diagnoses / Procedures Referred By Contact Refer red To Contact Hematology and Oncology Diagnoses Tonsil cancer History of kidney stones Gilbert's syndrome Kale Sy MD [facility] Hem Onc Infusion Procedures , [facility] [address] [facility] [place], [place] ONCOLOGY DEPT. [address] [place] [address] Referral ID Status Reason Start Date Expiration Date Visits V isits Requested Authorized [id number] Authorized 12/08/2021 02/25/2022 99 99 Encounter Details Date Type Department Care Team Description 12/26/2021 Infusion Hematology Oncology at [facility] lbert's syndrome; [facility] Tonsil cancer; [address] [place] [address] History of kidney stones [place], [place] [phone] Social History Tobacco Use [...] as of this encounter Progress Notes Sepideh Nelson RN - 12/26/2021 8:30 AM EDT INFUSION THERAPY ADMINISTRATION NOTES DIAGNOSIS: Tonsil Cancer REASON FOR VISIT: Hydration SUBJECTIVE Pino Wong is here for hydration. He is having a significant amount of throat pain. He is also having some bleeding in his gums. He is addressing pain with radiation and discussing further pain medication. He is unable to swallow well or get BMX solution into the back of his throat. States he has not been having any problems with nausea recently and did not feel he needed the zofran during hydration today. OBJECTIVE LAB DATA: Done 12/22/21 at [facility] for treatment today. IV ACCESS: Implanted port accessed prior to hydration and removed after with a flush of 20cc NS and 500 unit heparin. Pre administration: Chemotherapy orders independently verified for drug name, route, and dosage per patient's height, weight and BSA by Sepideh Walker, REBECCA & On-site pharmacist. REACTIONS (DESCRIPTION, TIME, INTERVENTION AND EFFECTIVENESS) none ASSESSMENT Pino was awake, alert and tolerated treatment well. PLAN Return to clinic next week. documented in this encounter Plan of Treatment Upcoming Encounters Date Type Specialty Care Team Description 01/26/2022 Infusion Hematology and Oncology 01/26/2022 Office Visit Hematology and Oncology Mirta Sy MD [facility] DR ONCOLOGY DEPT. [place], [place] [address] (Wo rk) 01/28/2022 Office Visit Radiation Oncology Chilango Michel MD [facility] RADIATION ONCOLO [place], [place] [address] (Wo rk) 01/29/2022 Infusion Hematology [...] Rate Site sodium chloride 0.9% New Bag 12/26/2021 8:29 AM EDT 1,000 mLs 500 mL/hr infusion 1,000 mL (1 L), at 500 mL/hr, Intravenous, ONCE, 1 dose, On Wed12/26/21 at 0815, Administer over 2 hours documented in this encounter Care Teams Mobile Battery Technician Relationship Specialty Start Date End Date Amelia Gomes APRN PCP - General Family Medicine 10/17/[address] [place] [address] documented as of this encounter
--- OUTSIDE RECORDS SUMMARY | 2022-01-24 03:57 | XMS_ITS | Encounter Summary ---
:1935 Author Organization [facility] [address] Care Team Providers Name Role Phone Amelia Gomes APRN Primary Care Provider [phone] Encounter Details Date Type Department Care Team Description 12/24/2021 Office Visit Radiation Oncology at [facility] Marito MD Tonsil cancer [address] RADIATION ONCOLOGY [place], [place] [phone] Social History Tobacco Use Types Packs/Day Years [...] Sign Reading Time Taken Comments Blood Pressure 140/72 12/24/2021 4:58 PM EDT Pulse 80 12/24/2021 4:58 PM EDT Temperature 37.1 ??C (98.8 ??F) 12/24/2021 4:58 PM EDT Respiratory Rate 16 12/24/2021 4:58 PM EDT Oxygen Saturation 96% 12/24/2021 4:58 PM EDT Inhaled Oxygen Concentration - - Weight 88.3 kg (194 lb 9.6 oz) 12/24/2021 4:58 PM with boots EDT Height - - Body Mass Index 28.72 12/22/2021 9:00 AM EDT documented in this encounter Progress Notes Marito Michel MD - 12/24/2021 5:00 PM EDT Images from the original note were not included. [facility] Medicine Radiation Oncology Radiation Oncology On-treatment [...] 82 mg Treatment Plan Images: Treatment Progress: 25.44 Gy in 12 fractions Setup films checked and approved. Clinical Course: Interval History: Symptoms Intervention Pain Increasing discomfort associated with throat over past few days, rated as a 5/10, primarily with eating Tylenol prn, modestly helpful Secretions / Dryness Moderate dysgeusia, moderate xerostomia Using BSSW Nutrition / G Tube Mostly by mouth; using G tube once daily Swallowing Function No issues Skin No issues GI N/V No issues Bowel Function No issues Other Exam: No data found. Weight : 90.1 kg initial Change: 88.2 => 88.2 SKIN: no skin erythema HEENT: mild erythema [...] as planned. ?? Pain control: ?? Tylenol prn; ADD Oxycodone 5 mg prn ?? Skin: topical cream prn ?? Mucositis: ?? Pain control: see above ?? Oral hygiene consisting of baking soda/salt rinse at least 8 times daily ?? Alimentation: finance professional following ?? Weight stable, mix of G [...] predominantly whispered speech NA ??? National Cancer [place] (NCI) Comprehensive Cancer Center ??? [employer] Commission on Cancer (ACS L[employer]pez) Accredited Cancer Program ??? [employer] (ACR) Accredited Radiation Oncology Program documented in this encounter Plan of Treatment Upcoming Encounters Date Type Specialty Care Team Description 01/26/2022 Infusion Hematology and Oncology 01/26/2022 Office Visit Hematology and Oncology Mirta Sy MD [facility] DR ONCOLOGY DEPT. [place], [place] [address] (Wo rk) 01/28/2022 Office Visit Radiation Oncology Chilango Michel MD [facility] RADIATION ONCOLO [place], [place] [address] (Wo rk) 01/29/2022 Infusion Hematology and Oncology 02/05/2022 Infusion Hematology and Oncology documented as of this encounter Visit Diagnoses Diagnosis Tonsil cancer Malignant neoplasm of tonsil documented in this encounter Care Teams Wholesale Loan Processor Relationship Specialty Start Date End Date Amelia Gomes APRN PCP - General Family Medicine 10/17/[address] [place] [address] [address] [place] [address] documented as of this encounter
--- OUTSIDE RECORDS SUMMARY | 2022-01-24 03:57 | XMS_ITS | Encounter Summary ---
:1935 Author Organization [facility] [place] [address] Care Team Providers Name Role Phone Amelia Gomes APRN Primary Care Provider [phone] Encounter Details Date Type Department Care Team Description 12/12/2021 [facility] Tonsil cancer [address] HEMATOLOGY [place] [address] ONCOLOGY [phone] [place], [place] [address] (Wo rk) Social History Tobacco Use Types [...] Progress Notes Page, Gris Ward, RD - 12/12/2021 1:30 PM EDT Nutrition Note Met with patient and his today while in hydration. Seferino started concurrent chemo/RT on 12/09 for tonsil cancer. He reports he is doing alright, though feeling tired from this week's appointments. He is still eating well, though has some soreness with swallowing (this was present prior to treatment. Weight has varied some this week, increasing 6#, then decreasing 3#. Unsure of reason for this variance, but weight is overall up a few pounds in the past 2 weeks. Wt Readings from Last 10 Encounters: 12/12/21 89.4 kg (197 lb) 12/10/21 90.9 kg (200 lb 6.4 oz) 12/09/21 88.1 kg (194 lb 3.2 oz) 12/08/21 88 kg (194 lb) 11/24/21 87.6 kg (193 lb 3.2 oz) 11/20/21 89.3 kg (196 lb 12.8 oz) 11/11/21 90.9 kg (200 lb 8 oz) 10/30/21 91.2 kg (201 lb) 10/09/21 90.7 kg (200 lb) 09/17/21 93.4 kg (206 lb) BMI 29.1 Weight varied in this first week of treatment, unsure if weight on 12/10 is accurate? 3-4 pound gain in past 2 weeks 9# loss in the past 3 months (4.4% body weight) - not clinically significant Hand roads supervisor strength measurements: Left hand: 45.6 average Right hand: 40.4 average Medications: Compazine prn, saw palmetto, krill oil, simvastatin, allopurinol Labs on 12/08: WBC 5.91, H/H 14.0/42.8, platelets 216, electrolytes wnl, calcium wnl, LFTs wnl, alb 3.4, TBili 1.2. Enteral: G-tube placed by IR in [place] on 11/13/21. He is flushing with water BID but has not started feedings yet Nutrition Problem: Involuntary weight loss related to tonsil cancer as evidenced by 9# loss in the past 3 months (4.4% body weight) - not clinically significant Improved--3-4# re-gain in past 2 weeks Estimated needs based on 89.4 [id number] kcals (25-30 kcal/kg) 89-134 g protein (1-1.5 g/kg) 1 ml/kcal fluids Recommendations: * Encouraged patient to continue with good PO intake. Provided samples of vanilla and strawberry Ensure. Discussed having one per day. [place] Breakfast Essentials, homemade milkshake and/or smoothieare alternative options. * Encouraged trying Healios glutamine/trealose supplement twice daily. Provided with one sample container. * Patient has been checking g-tube balloon at home. Tends to be about 2.5 ml full and he adds water to reach 5 ml. F/U on 12/17 documented in this encounter Plan of Treatment Upcoming Encounters Date Type Specialty Care Team Description 01/26/2022 Infusion Hematology and Oncology 01/26/2022 Office Visit Hematology and Oncology Mirta Sy MD [facility] DR ONCOLOGY DEPT. [place], [place] [address] (Tomy cantu) 01/28/2022 Office Visit Radiation Oncology Chilango Michel MD [facility] RADIATION ONCSHANTEL GY [place], [place] [address] (oTmy cantu) 01/29/2022 Infusion Hematology and Oncology 02/05/2022 Infusion Hematology and Oncology documented as of this encounter Visit Diagnoses Diagnosis Tonsil cancer Malignant neoplasm of tonsil documented in this encounter Care Teams Dieing Out Machine Operator Relationship Specialty Start Date End Date Amelia Gomes APRN PCP - General Family Medicine 10/17/[address] [place] [address] documented as of this encounter
--- OUTSIDE RECORDS SUMMARY | 2022-01-24 03:57 | XMS_ITS | Encounter Summary ---
:1935 Author Organization [facility] [place] [address] Care Team Providers Name Role Phone Amelia Gomes APRN Primary Care Provider [phone] Encounter Details Date Type Department Care Team Description 01/06/2022 Notes Only [facility] OFFICE OF CARE [address] [place] [phone] Social History Tobacco Use Types Packs/Day Years [...] encounter Progress Notes Lizette Benson MSW - 01/06/2022 9:26 AM EDT Follow up with Pino during his infusion visit today. Half way through treatment. He is expecting the next 2 weeks to be challenging as he was warned. He tracks the days on his calendar. He has some chores to be done to prepare for winter. He indicated he has some people to ask to help him with this. Pino did not identify any new needs today. Offered support. Reminded Pino of SW availability and contact information. Will continue to follow. Brief assessment Supportive Counseling documented in this encounter Plan of Treatment Upcoming Encounters Date Type Specialty Care Team Description 01/26/2022 Infusion Hematology and Oncology 01/26/2022 Office Visit Hematology and Oncology Mirta Sy MD [facility] ONCOLOGY DEPT. [place], [place] [address] (Wo alondra) 01/28/2022 Office Visit Radiation Oncology Chilango Michel MD [facility] RADIATION ONCOLO [place], [place] [address] (Wo alondra) 01/29/2022 Infusion Hematology and Oncology 02/05/2022 Infusion Hematology and Oncology documented as of this encounter Visit Diagnoses Not on filedocumented in this encounter Care Teams Cost Controller Relationship Specialty Start Date End Date Amelia Gomes APRN PCP - General Family Medicine 10/17/20 [address] [facility] [address] [place] [address] documented as of this encounter
--- OUTSIDE RECORDS SUMMARY | 2022-01-24 03:57 | XMS_ITS | Encounter Summary ---
:1935 Author Organization [facility] [place] [address] Care Team Providers Name Role Phone Amelia Gomes APRN Primary Care Provider [phone] Encounter Details Date Type Department Care Team Description 01/12/2022 Unscheduled Encounter Hematology/Oncology Gris Dawn, RAYSA Tonsil cancer at [address] HEMATOLOGY AND [address] ONCOLOGY [phone] [place], [place] [address] Social History Tobacco Use Types Packs/Day Years [...] of this encounter Progress Notes Page, Gris Ward RD - 01/12/2022 1:56 PM EDT FEEDING TUBE ORDERS Patient name: Pino Wong : 1935 Diagnosis: Tonsil Cancer Tube type: Enfit g-tube Date of placement: 11/13/21 Length of need: At least 90 days Ht/Weight: Wt Readings from Last 3 Encounters: 01/12/22 83.5 kg (184 lb) 01/07/22 86.3 kg (190 lb 3.2 oz) 01/06/22 84.6 kg (186 lb 6.4 oz) Estimated body mass index is 27.16 kg/m?? as calculated from the following: Height as of an earlier encounter on 01/12/22: 175.3 cm (5' 9.02). Weight as of an earlier encounter on 01/12/22: 83.5 kg (184 lb). Estimated Kcal: 6932-8529 kcal (25-30 kcal/kg) Estimated Protein needs: 84-126 gm/day (1-1.5 g/kg) Estimated Fluid needs: 2.1-2.5 L/day (1 ml/kcal) Goal : 6 cans/day Method of Feeding: Denver (CPT B4036) G-tube connection: Enfit Patient unable to meet estimated nutritional needs with PO. PO is for pleasure and to maintain swallow function at this time. Initiating enteral nutrition. Recommend 6 cans of Nutren 1.5 (or equivalent) via G-tube/day to provide 2250 kcal, 102 gm of protein and 1146 mLs of free water. Additional protein needs: n/a Denver feeding method at 1 cans per feeding over 60 minutes for 6 times/d. Patient requires 1100 mLs or 37 ounces water/day as water flushes. This does not include the 60 mls flushes before and after feedings. Quantity per month: 180 containers/cartons Number of Refills: 3 Patient will require enteral nutrition for > 90 days. Pt needs, syringes, flexi-traks, and gravity bags. Pt DOES NOT need VNA services at this time. Medical Supply Co. : [employer] Toll Free: Home Care Co.: [employer] Toll Free: Doctor/WEB MACHINE TENDER: (printed name) Signature: Dietitian: Gris Dawn MS, RD, LD documented in this encounter Plan of Treatment Upcoming Encounters Date Type Specialty Care Team Description 01/26/2022 Infusion Hematology and Oncology 01/26/2022 Office Visit Hematology and Oncology Mirta Sy MD [facility] ONCOLOGY DEPT. [place], [place] [address] (Wo alondra) 01/28/2022 Office Visit Radiation Oncology Chilango Michel MD [facility] RADIATION ONCOLO [place], [place] [address] (Wo alondra) 01/29/2022 Infusion Hematology and Oncology 02/05/2022 Infusion Hematology and Oncology documented as of this encounter Visit Diagnoses Diagnosis Tonsil cancer Malignant neoplasm of tonsil documented in this encounter Care Teams Runway Model Relationship Specialty Start Date End Date Amelia Gomes APRN PCP - General Family Medicine 10/17/[address] [place] [address] documented as of this encounter
--- OUTSIDE RECORDS SUMMARY | 2022-01-24 03:57 | XMS_ITS | Encounter Summary ---
:1935 Author Organization [facility] [place] [address] Care Team Providers Name Role Phone MateoHayde simpsonleonarda Branch APRN Primary Care Provider [phone] Encounter Details Date Type Department Care Team Description 01/05/2022 Notes Only [facility] [address] [phone] Social History Tobacco Use [...] encounter Progress Notes Kaley Lee, RN - 01/05/2022 2:32 PM EDT RESEARCH NURSE OFFICE NOTE Week 5 ( day 5 ) infusion tomorrow 01/05/2022 Study Number:[id number] Description:Comparing high-dose cisplatin every three [...] COMPLETED Patient states he's not feeling so good.He is not eating anything be mouth now. Pain is managed by oxycone 5mg 1 tab every 4 hours. He wishes to have a liquid because it is difficult to swallow and cumbersome to put in G-tube. He c/o dryness in mouth . Has started the saltwater baking soda rinses. He continues to stay awafromthe BMX because the tase gags him and he didn feel it helped. they are using feeding , Gtube , [...] in his feet. He considers it mild. This is the same. 2 Days ago he had nausea spell and vomited, yellow bile. He isn't eating, so he didn't expect to seeany food. He took compazine, difficult to swallow tab. He requested liquid form of that. He also reports having more difficulty in general with swallowing . Landry reports that our VP PATIENT plans to do a Telehealth appointment with him today after his radiation treatment. He reports constipation is controlled with Miralax via feeding tube. is helping him with this. He is having BM about QOD. He reports gums are bleeding when he brushes. He is now using a soft manual tooth brush when he brushes. He is now longer using the electric toothbrush. He said the tender gums also are painful times. He denies coughing up blood. He is spitting blood from his gums. He is reporting some mild itchiness of skin to neck relieved by the cream we supply. He has no redness or desquamation. We provided more cream today.Phytoplex. He also saw Gris our Telecommunications Linesworker today. PREVIOUS CYCLE SUPPLIES & MEDICATION COLLECTED ??? n/a MEDICATION DISPENSED n/a SUPPLIES DISPENSED ??? N/a Unsolicited AE/SIDE EFFECT MONITORING # AE Grade (CTCAE v. 5 ) Start date Stop Date Study Related Intervention/Outcome 1 dysgeusia 1 2 1 2 12/15/21 12/22/21 12/29/21 01/05/22 2 constipation 1 1 1 1 12/14/21 12/22/21 12/29/21 01/05/22 intermittent 3 Increased oral mucous, secretions 1 1 1 12/15/21 12/22/21 << solicited AEs >> 1 anemia 0 0 0 1 12/09/21 12/15/21 12/22/21 01/05/22 01/05/22 hgb 12.8 2 Ear pain 0 0 0 12/09/21 [...] soda rinses 9 dysphagia 0 0 0 /12/15/21 12/22/21 10 Mucositis oral 0 0 0 12/09/21 12/15/21 12/22/21 11 Nausea 0 0 0 12/09/21 12/15/21 12/22/21 12 vomiting 0 0 0 12/09/21 12/15/21 12/22/21 13 fatigue 0 0 0 12/09/21 12/15/21 12/22/21 14 pain 1 1 1 1 04/202112/09/21 12/15/21 12/22/21 Right side of throat, tonsil area , pain intermittent 08/05 15 Dermatitis radiation 0 0 0 12/09/21 [...] mucositis 0 0 0 12/09/21 12/15/21 12/22/21 Unsolicited AE/SIDE EFFECT MONITORING # AE Grade (CTCAE v. ) Start date Stop Date Study Related Intervention/Outcome 1 dysgeusia 1 2 2 12/15/21 12/25/21 01/05/22 Is affecting his appetite 2 constipation 1 1 12/14/21 01/05/22 Intermittent Relieved by miralax 3 Increased oral mucous, secretions 1 1 1 12/15/21 12/22/21 01/05/22 He states this is same, not worse << solicited AEs >> 1 anemia 0 1 01/05/22 01/05/22 hgb 12.8 2 Ear pain 0 3 Hearing impairment 0 4 Middle ear inflammation 0 5 tinnitus 0 1 01/04/22 6 vertigo 0 7 Vestibular disorder 0 8 Dry mouth 1 2 2 12/15/21 12/25/21 01/05/22 Using salt water/baking soda rinses 9 dysphagia 0 2 01/03/22 Has telahealth appointment with VP PATIENT today( 01/05/22) 10 Mucositis oral 1 2 12/25/21 01/05/22 Gums bleeding when brushing. c/o pain 11 Nausea 0 1 01/04/22 12 vomiting 0 1 01/04/22 13 fatigue 0 2 12/821 14 pain 1 2 04/202112/25/21 Start oxycodone 5 mg Q 4hr PRN 12/26/21 15 Dermatitis radiation 1 12/26/21 moisturizing cream 16 ANC decreased 0 17 Weight loss 0 18 anorexia 1 2 12/25/21 01/03/22 19 dehydration 0 20 Peripheral sensory neuropathy 1 1 1 12/12/21 12/26/21 01/05/22 Right hand and some chronic bilateral feet 21 Acute kidney injury 0 22 Pharyngeal mucositis 3 3 01/05/22 Start oxycodone PRN EDUCATION PROVIDED Recommended humidify as needed to help keep air moist. Import to keep device clean to avoid mildew growth. Recommended he try swish and spitting the BMX For oral mucositis. Dr Sy prescribed liquid oxycodone with option of taking larger dose. Instructed pt and that this may cause constipation and to watch out for this and keep up with the miralax. Patient verbalized understanding of these instructions. Pt instructed to call clinic with any questions or concerns. For weekend coverage while our clinic is closed, the patient was instructed to call [facility] at [phone] and ask for the pediatric surgeon radiation or medical oncologist. Patient verbalized understanding. Surveys: None today . PLAN 1. Subject agrees to continue on study [id number] per protocol. Weekly chemo tomorrow & Daily XRT 2. Next Appt with Dr Sy 01/12 with labs prior and weekly chemo Wednesday Patient verbalizes understanding of, and agreement with, plan. Advised to contact this office for any questions/concerns, as well as for any new or worsening symptoms. documented in this encounter Plan of Treatment Upcoming Encounters Date Type Specialty Care Team Description 01/26/2022 Infusion Hematology and Oncology 01/26/2022 Office Visit Hematology and Oncology Mirta Sy MD [facility] DR ONCOLOGY DEPT. [place], [place] [address] (Wo rk) 01/28/2022 Office Visit Radiation Oncology Chilango Michel MD [facility] RADIATION ONCOLO [place], [place] [address] (Wo rk) 01/29/2022 Infusion Hematology and Oncology 02/05/2022 Infusion Hematology and Oncology documented as of this encounter Visit Diagnoses Not on filedocumented in this encounter Care Teams Job Development Specialist Relationship Specialty Start Date End Date Amelia Gomes APRN PCP - General Family Medicine 10/17/[address] [place] [address] documented as of this encounter
--- OUTSIDE RECORDS SUMMARY | 2022-01-24 03:57 | XMS_ITS | Encounter Summary ---
:1935 Author Organization [place] [address] Care Team Providers Name Role Phone MateoZaid simpsonAmeliamat Branch APRN Primary Care Provider [phone] Reason for Visit Reason Comments IV Medication Hydration + antiemetic Treatment/Therapy Plan Authorization (Routine) - Authorized Specialty Diagnoses / Procedures Referred By Contact Refer red To Contact Hematology and Oncology Diagnoses Tonsil cancer History of kidney stones Gilbert's syndrome Kale Sy MD [facility] Hem Onc Infusion Procedures , [facility] [address] [place], [place] ONCOLOGY DEPT. [address] [place] [address] Referral ID Status Reason Start Date Expiration Date Visits V isits Requested Authorized [id number] Authorized 12/08/2021 02/25/2022 99 99 Encounter Details Date Type Department Care Team Description 12/19/2021 Infusion Hematology Oncology at [facility] lbert's syndrome; [facility] Tonsil cancer; [address] [place] [address] History of kidney stones [place], [place] [phone] Social History Tobacco Use [...] Sign Reading Time Taken Comments Blood Pressure 150/83 12/19/2021 8:19 AM EDT Pulse 90 12/19/2021 8:19 AM EDT Temperature 36.5 ??C (97.7 ??F) 12/19/2021 8:19 AM EDT Respiratory Rate 16 12/19/2021 8:19 AM EDT Oxygen Saturation 90% 12/19/2021 8:19 AM EDT Inhaled Oxygen Concentration - - Weight 88.2 kg (194 lb 6.4 oz) 12/19/2021 8:19 AM EDT Height 175.3 cm (5' 9.02) 12/19/2021 8:19 AM EDT Body Mass Index 28.69 12/19/2021 8:19 AM EDT documented in this encounter Progress Notes Mini Anthony RN - 12/19/2021 8:30 AM EDT INFUSION THERAPY ADMINISTRATION NOTES DIAGNOSIS: Tonsil Cancer REASON FOR VISIT: Hydration + antiemetic SUBJECTIVE Pino Wong is here for hydration. He denies pain, his taste has changed but is still able to eat. He is flushing his g-tube twice daily. His energy level is good, he is able to do most things hewants/needs to do, just at a slower pace. OBJECTIVE LAB DATA: Done 12/15/21 at [facility] for treatment today. IV ACCESS: Implanted port Pre administration: Chemotherapy orders independently verified for drug name, route, and dosage per patient's height, weight and BSA by Mini Anthony, RN & On-site pharmacist. REACTIONS (DESCRIPTION, TIME, [...] [facility] DR ONCOLOGY DEPT. [place], [place] [address] (Tomy cantu) 01/28/2022 Office Visit Radiation Oncology Chilango Michel MD [facility] [place] [address] (Tomy cantu) 01/29/2022 Infusion Hematology and Oncology 02/05/2022 [...] Site ondansetron (pf) (Zofran) (2 mg/mL) Given 12/19/2021 8:43 AM EDT 8 mg injection 8 mg 8 mg, Intravenous, ONCE PRN, Starting on Wed12/19/21 at 0815, Until Wed12/19/21 at 1320, Nausea, Vomiting sodium chloride 0.9% infusion New Bag 12/19/2021 8:34 AM EDT 1,000 mLs 500 mL/hr 1,000 mL (1 L), Intravenous, ONCE, 1 dose, On Wed12/19/21 at 0815, Administer over 2 hours documented in this encounter Care Teams Level Vial Grinder Relationship Specialty Start Date End Date Amelia Gomes APRN PCP - General Family Medicine 10/17/[address] [place] [address] [address] [place] [address] documented as of this encounter
--- OUTSIDE RECORDS SUMMARY | 2022-01-24 03:57 | XMS_ITS | Encounter Summary ---
:1935 Author Organization [facility] [place] [address] Care Team Providers Name Role Phone Amelia Gomes APRN Primary Care Provider [phone] Encounter Details Date Type Department Care Team Description 12/22/2021 [facility] Tonsil cancer [address] HEMATOLOGY AND [address] ONCOLOGY [phone] [place], [place] [address] (Wo rk) Social History Tobacco Use Types [...] as of this encounter Progress Notes Page, Landry Sylvia, RD - 12/22/2021 11:00 AM EDT Nutrition Note Visited with patient and his Angelina in clinic today. 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 He is starting to struggle more with taste and dry mouth. However, he continues to eat despite this. He can't taste salt. He could taste applesauce slightly yesterday. He started Healios glutamine rinses by mouth and 1 carton Nutren 1.5 per day via g- tube over this past weekend. He is tolerating this well, though feels a bit full if the gravity bag is running to fast. He will have his third dose of weekly cisplatin tomorrow. Wt Readings from Last 10 Encounters: 12/22/21 86 kg (189 lb 9.6 [...] 11/24/21 87.6 kg (193 lb 3.2 oz) BMI 27.98 5# loss in past 3 days (2.5% body weight) - significant 12/09 start of treatment Recommend: * Increase to 2 cartons Nutren 1.5 per day given 5# weight loss over the weekend. Gave patient one case (24 cartons) of formula plus 5 gravity bags. Have not yet placed order for enteral supplies. * Gave patient 6 vanilla and strawberry Ensure Plus. Will f/u with full assessment on 12/26. documented in this encounter Plan of Treatment Upcoming Encounters Date Type Specialty Care Team Description 01/26/2022 Infusion Hematology and Oncology 01/26/2022 Office Visit Hematology and Oncology Mirta Sy MD [facility] DR ONCOLOGY DEPT. [place], [place] [address] (Wo rk) 01/28/2022 Office Visit Radiation Oncology Chilango Michel MD [facility] RADIATION ONCOLO [place], [place] [address] (Wo rk) 01/29/2022 Infusion Hematology and Oncology 02/05/2022 Infusion Hematology and Oncology documented as of this encounter Visit Diagnoses Diagnosis Tonsil cancer Malignant neoplasm of tonsil documented in this encounter Care Teams Yeast Stacker Relationship Specialty Start Date End Date Amelia Gomes APRN PCP - General Family Medicine 10/17/[address] [place] [address] documented as of this encounter
--- OUTSIDE RECORDS SUMMARY | 2022-01-24 03:57 | XMS_ITS | Encounter Summary ---
:1935 Author Organization [facility] [place] [address] Care Team Providers Name Role Phone Amelia Gomes APRN Primary Care Provider [phone] Encounter Details Date Type Department Care Team Description 01/07/2022 TH Visit Hematology/Oncology Bonnie Arevalo C, Tons il cancer; (TeleHealth) at [facility] MOLD SHAKER Dysphagia, unspecified type [address] [place] [address] Social History Tobacco Use Types Packs/Day [...] documented as of this encounter Miscellaneous Notes Initial Evaluation - Bonnie Arevalo, MOLD SHAKER - 01/07/2022 3:00 PM EDT Speech Language Pathology Clinical Swallow Evaluation Patient Profile: Pino Wong is a 86 y.o. male with tonsil cancer; Currently undergoing concurrent chemoradiation with curative intent. Patient Active Problem List Diagnosis ??? Tonsil [...] of nonmelanoma skin cancer BCC- left helix Feeding Tube Present? Yes Weight Loss? Yes Prior Level of Swallow Function: WF Most Recent RD Visit / Date: 01/05/22 Subjective: Pino Wnog seen for clinical swallowing evaluation and motivational interview viaZoom today. Pino Wong reports main frustration at this time is dysgeusia, oral pain and odynophagia from mucositis, and heightened gag reflex. Patient continues to use Healios glutamine supplement per RD, is only able to tolerate small sips ofwater by mouth at this time due to mucositis pain and heightened gag reflex, otherwise nutrition is entirely via PEG tube. MDADI Administration: I'm not self-conscious at mealtimes, it's just my dog and my who watch me anyway. Getting my calories from the tube, had to up it this week to make up for not eating. Briefly reviewed role of MOLD SHAKER and prophylactic measures for patient to consider throughout and after Treatment (pharyngocise, trismus s/sx+lateral finger self- test, aspiration s/sx), including plan for MOLD SHAKER follow up at end of current treatment cycle either with this clinician remotely or with on-site clinician, Ana Caldwell, PIO. Objective: Pain: 07/06 Respiratory Status: Room air Vision: WFL per pt Hearing: WFL Current Diet: No diet orders on file Feeding / Oral Care Status: Pt is independent Cognitive-Linguistic Status: alert, oriented to person, place, and time Follows Commands: Follows multi-step commands Positioning: Pt up to chair Oral / Laryngeal Mechanism Clinical Assessment: ?? Lingual: WFL ?? Labial / Buccal: WFL ?? Velar: unable to assess due to nature of televisit ?? Sensation: WFL ?? Vocal fold function and airway protection: suspect sensation intact given cough response per informal assessment WFL for age and gender ?? Speech Intelligibility: WFL ?? Mucosa: Reduced and xerostomia ?? Jaw: WFL ?? Trismus: No ?? CHRIS: DNT mm N/A - Normal (35-45 mm) (Kylah et al, 2006) ?? Lateral Excursion: DNT mm Normal (12 mm) (AAOMS Parameters of Care, 2007) ?? 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 No ?? Osteoradionecrosis (ORN) Risk Factors: Pre-radiation dental extraction in the radiation field andHigh radiotherapy dosages (>60 Gys) Bolus Presentation(s) Thin liquid 3 mL Oral Preparatory Phase ?? Mastication: Impaired and primarily due to heightened gag reflex, unable to tolerate po intake aside from small sips of water ?? Oral Transit: Likely WFL ?? Bolus Cohesion: Likely WFL ?? Labial Seal / Loss: WFL ?? Oral Stasis: N/A Pharyngeal Phase ?? Laryngeal Elevation: Likely WFL ?? Vocal quality change: Present ?? Cough / throat clear: Cough with thin liquid ?? Pt. complaint of food/pills/liquids feeling 'stuck': N/A ?? Fatigue across trials: Yes per patient report ?? Respiratory rate and respiratory swallow pattern: Suspect WFL Esophageal Phase ?? Appears to be WFL, No overt clinical s/s of esophageal phase dysphagia noted during this evaluation Standardized Assessment(s) Marilu Swallow Protocol (Daisyr et al, 2014) Patient results: Fail - patient exhibits overt s/sx aspiration, ie immediate cough MDADI Diego Dysphagia Inventory [MDADI], a validated and reliable self- administered questionnaire designed specifically for evaluating the impact of dysphagia on the QOL of patients with head and neck cancer (Mansi et al 2001), was administered: Global Score: 3 Physical 2.3 Emotional 3.2 Functional 3.8 Scores range from 1 (Extremely low functioning) to 5 (Extremely high functioning) Composite Score: 57.9 Scores range from 20 (Extremely low functioning) to 100 (High functioning) Education Addressed: - Exercise physiology specific to swallowing mechanism in context of patient's diagnoses - Oropharyngeal swallowing mechanism, trismus s/sx and self-monitoring techniques - Additional Roles / Responsibilities of Speech Language Pathologist - Rationale for and Logistics Involved with Potential Instrumental Assessment Options once LABORER STEEL HANDLING has been completed and/or once patient is able to tolerate po intake: Videofluoroscopic Swallow Study / Modified Barium Swallow Study [VFSS/MBSS] - Other: OTC options for oral spray to address xerostomia / maintain moist mucosa + reduce additional oral bacterial growth - Risk Management Compensatory Techniques/Precautions: Slow Rate and Small Sips Excellent oral care Pt was able to demonstrate comprehension of results from today's assessment as well as outlined recommendations. Assessment Pino Wong demonstrates clinical s/sx oropharyngeal dysphagia as characterized by overt s/sx aspiration with thin liquids per YSP, report of intermittent s/sx aspiration (cough) with po intake, and complicated by xerostomia, heightened gag reflex, and odynophagia in context of oral mucositis; patient is currently tolerating thin liquid sips by mouth, nutrition via PEG tube. FOIS: Level 2 - Tube Dependent; Minimal/Inconsistent Oral Intake Patient is likely to benefit from continued treatment and monitoring of above symptoms for ongoing care with focus on function and quality of life. Diagnosis: Dysphagia, unspecified Recommendations: Instrumentation: Videofluoroscopic Swallow Study / Modified Barium Swallow Study [VFSS/MBSS] Diet: Discussed gradual return to solid textures only as tolerated; currently tolerating small amounts of thin liquids, inconsistent intake PO medications: whole with sip of liquid Refer to Risk Management as Outlined Referrals to Maximize Patient Outcomes: Full Stack Software Developer Speech Therapy Goals: (To be met by discharge) To be determined by results of Modified Barium Swallow study Pt will tolerate least restrictive diet without evidence of dysphagia / aspiration. Pt / caregiver will be independent with aspiration precautions, diet modifications, and safe swallowing strategies. Pt will demonstrate effortful swallows with good execution Pt will independently demonstrate tongue-base retraction exercises with good execution Pt will independently demonstrate laryngeal elevation exercises with good execution. Pt will maintain hydration / nutrition with optimal safety and efficiency. Plan: Discussed subsequent visit with 4-6 weeks or sooner if symptoms become worse, to determine appropriateness for VFSE/MBSS at that time. Pt./family are in agreement with treatment plan. Thank you for this consult. Please feel free to call me with any questions or concerns regarding Pino Wong's care. Bonnie Arevalo MA CCC-MOLD SHAKER Speech-Language Pathologist documented in this encounter Plan of Treatment Upcoming Encounters Date Type Specialty Care Team Description 01/26/2022 Infusion Hematology and Oncology 01/26/2022 Office Visit Hematology and Oncology Mirta Sy MD [facility] DR ONCOLOGY DEPT. [place], [place] [address] (Wo rk) 01/28/2022 Office Visit Radiation Oncology Chilango Michel MD [facility] RADIATION ONCOLO [place], [place] [address] (Wo rk) 01/29/2022 Infusion Hematology and Oncology 02/05/2022 Infusion Hematology and Oncology documented as of this encounter Visit Diagnoses Diagnosis Tonsil cancer Malignant neoplasm of tonsil Dysphagia, unspecified type documented in this encounter Care Teams Tool Analyst Relationship Specialty Start Date End Date Amelia Gomes APRN PCP - General Family Medicine 10/17/[address] [place] [address] documented as of this encounter
--- OUTSIDE RECORDS SUMMARY | 2022-01-24 03:57 | XMS_ITS | Encounter Summary ---
:1935 Author Organization [facility] [place] [address] Care Team Providers Name Role Phone MateoHayde simpsonleonarda Branch APRN Primary Care Provider [phone] Encounter Details Date Type Department Care Team Description 12/09/2021 Notes [facility] [address] [phone] Social History Tobacco Use [...] encounter Progress Notes Kaley Lee RN - 12/09/2021 2:54 PM EDT RESEARCH NURSE OFFICE NOTE Week 1 day 1 12/09/2021 Study Number:[id number] Description:Comparing high-dose cisplatin every three weeks to low-dose cisplatin weekly when combined with radiation for patients with advanced head and neck cancer. Randomized to weekly low dose cisplatin SUBJECTIVE Pino Wong presented to hem-onc clinic for weekly cisplatin as per protocol. Pt was evaluatedby Yossi yesteday please see his note. adverse events on RN AE table reviewed and updated accordingly. STUDY ASSESSMENTS COMPLETED Patient states he is in good health. 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 He mentions some pain right side throat, tonsil area . Comes and goes . Doesn't interfere with eating and he grades it 5/10. PREVIOUS CYCLE SUPPLIES & MEDICATION COLLECTED ??? n/a MEDICATION DISPENSED n/a SUPPLIES DISPENSED ??? n/a Unsolicited AE/SIDE EFFECT MONITORING # AE Grade (CTCAE v. ) Start date Stop Date Study Related Intervention/Outcome solicited AEs 1 anemia 0 2 Ear pain 0 3 Hearing impairment 0 4 Middle ear inflammation 0 5 tinnitus 0 6 vertigo 0 7 Vestibular disorder 0 8 Dry mouth 0 9 dysphagia 0 10 Mucositis oral 0 11 Nausea 0 12 vomiting 0 13 fatigue 0 14 pain 1 04/2021 Right side of throat, tonsil area , pain intermittent 5/10 15 Dermatitis radiation 0 16 ANC decreased 0 17 Weight loss 0 18 anorexia 0 19 dehydration 0 20 Peripheral sensory neuropathy 0 21 Acute kidney injury 0 22 Pharyngeal mucositis 0 EDUCATION PROVIDED Pt instructed to call clinic with any questions or concerns. For Weekend/Holiday coverage while our clinic is closed, the patient was instructed to call [facility] at [phone] and ask for the evaluation specialist radiation oncologist. Patient verbalized understanding. Surveys: He filled out required QOL surveys required prior to chemo infusion today. They were emailed and theoriginal copies mailed to GRACE Mars at [facility]. PLAN 1. Subject agrees to continue on study HN009 per protocol. 2. Next visit 12/12 for IV hydraton 3. 12/15 week 2 chemo Patient verbalizes understanding of, and agreement with, plan. Advised to contact this office for any questions/concerns, as well as for any new or worsening symptoms. documented in this encounter Plan of Treatment Upcoming Encounters Date Type Specialty Care Team Description 01/26/2022 Infusion Hematology and Oncology 01/26/2022 Office Visit Hematology and Oncology Mirta Sy MD [facility] DR ONCOLOGY DEPT. [place], [place] [address] (Wo rk) 01/28/2022 Office Visit Radiation Oncology Chilango Michel MD [facility] RADIATION ONCOLO GY [place], [place] [address] (Wo rk) 01/29/2022 Infusion Hematology and Oncology 02/05/2022 Infusion Hematology and Oncology documented as of this encounter Visit Diagnoses Not on filedocumented in this encounter Care Teams Salon Professional Relationship Specialty Start Date End Date Amelia Gomes APRN PCP - General Family Medicine 10/17/[address] [place] [address] [address] [place] [address] documented as of this encounter
--- OUTSIDE RECORDS SUMMARY | 2022-01-24 03:57 | XMS_ITS | Encounter Summary ---
:1935 Author Organization [facility] [place] [address] Care Team Providers Name Role Phone Amelia Gomes APRN Primary Care Provider [phone] Encounter Details Date Type Department Care Team Description 12/29/2021 Office Visit Hematology/Oncology at Kale Gilmore MD Tonsil cancer [address] ONCOLOGY DEPT. [place], [place] [phone] Social History Tobacco Use Types Packs/Day Years [...] place to sleep or slept in a nursing home (including now)? Sex Assigned at Date Recorded Not on file documented as of this encounter Last Filed Vital Signs Vital Sign Reading Time Taken Comments Blood Pressure 112/58 12/29/2021 1:44 PM EDT Pulse 91 12/29/2021 1:44 PM EDT Temperature 36.5 ??C (97.7 ??F) 12/29/2021 1:44 PM EDT Respiratory Rate 16 12/29/2021 1:44 PM EDT Oxygen Saturation 97% 12/29/2021 1:44 PM EDT Inhaled Oxygen Concentration - - Weight 84.9 kg (187 lb 3.2 oz) 12/29/2021 1:44 PM EDT Height 175.3 cm (5' 9.02) 12/29/2021 4:28 PM EDT Body Mass Index 27.63 12/29/2021 1:44 PM EDT documented in this encounter Progress Notes Kale Sy MD - 12/29/2021 1:45 PM EDT Images from the original note were not included. Hematology/Oncology Clinic [facility] Patient Active Problem List Diagnosis ??? Tonsil [...] helix ONCBCN ONCOLOGY (AMB) 12/09/2021 12/16/2021 12/23/2021 CISplatin (Platinol) IV 83 mg 82 mg 82 mg Checkup prior to concurrent dose #4 cisplatin, 40 mg/m2. After today he will have gotten approximately 31 Jones radiation by my tally. He has been doing about as well as can be expected with this aggressive chemoradiation. He is experiencing more pharyngeal discomfort. He has begun using oxycodone, 5 mg every 4-6 hours; he is worried about getting addicted to this and has been trying to spread out his dosing. Taste sensation is almost entirely absent, but is forcing down some food. He has been troubled by more sticky phlegm, and has some scant bleeding in this mostly in the mornings. He is getting some bleeding from the gums when he brushes his teeth. He is also now using his G-tube for supplemental tube feedings. Chemotherapy has been well-tolerated; no significant nausea. No increase in baseline hearing dysfunction, some increase in tinnitus, no worse than grade 1. No peripheral neuropathic symptoms besides occasional positional related tingling in the fingers which I do not believe is due to chemotherapy. He has been troubled by constipation. He started to use MiraLAX, typically once a day; has not had abowel movement for 2 days now. Energy level is down a bit, but he still doing independent ADLs and I would estimate his KPS at 90. Physical exam: He looks well, in his usual quiet good spirits. He is accompanied by his well- informed and very supportive . Oral exam: I do not see any obvious bleeding. The right tonsillar tumor is regressing, currently about 1 cm along the curve of the soft palate and about half a centimeter in width. No obvious tumor in the left tonsil. There is diffuse but patchy mucositis across the soft palate, which I would give is grade 2. The tongue is mobile. I see no signs of candidiasis. Neck exam shows no radiation dermatitis. The right mid neck node previously palpable is no longer palpable. No other adenopathy. The chest is clear The right chest Mediport is benign Cardiac exam is normal Abdomen is benign without hepatosplenomegaly or masses The G-tube site is clean Extremities normal, no clubbing cyanosis or edema Neurologic exam grossly normal, reflexes 2+ Cranial nerves are normal Labs: Today sodium is stable at 134, electrolytes otherwise normal, BUN 26, creatinine 1.1 which is stable. Nonfasting glucose 158. Calcium and magnesium are normal. Hepatic enzymes normal. Albumin stable at 3.1. White count is 6.07, hemoglobin 13.3, platelets 195. Impression: ?? Bilateral tonsil cancer, right greater than left, with palpable adenopathy on the right and nonpalpable adenopathy on the left. The neck nodes and the right tonsil tumor are responding. ?? Grade 2 mucositis, as expected from chemoradiation. ?? Dysgeusia, grade 2, getting in the way of oral intake. ?? Baseline tinnitus, perhaps very slightly worse with chemotherapy but I would still not put this above grade 1. ?? Overall renal function seems stable, but his BUN is a bit high suggesting suboptimal hydration. He has been coming in for day 5 intravenous hydration with the treatment week. Plan: 1. Proceed with cisplatin, same dose and supportive care, scheduled for tomorrow 2. Encouraged him to get in more hydration, either by mouth if he can tolerate it or through the G-tube. 3. Nutrition follow-up with Gris Dawn RD today. 4. Encouraged him to be liberal with the oxycodone, since I would rather have him comfortable and swallowing then minimizing narcotic intake. I tried to allay his concerns about addiction, telling him that we will be very vigilant about getting him off of the narcotics once the treatment side effects begin to resolve post radiation. 5. For constipation, step up the MiraLAX to twice a day, 3 times a day if necessary, and doubling the dose if that is insufficient. Kale Sy MD, FACP under cutter Hematology/Oncology Section [facility] [address] Voice recognition software used for this note; please excuse lumber hacker errors. I personally reviewed past medical, surgical, family medical histories, reviewed current medications, vital signs, labs, and performed full review of systems. These are documented below the narrative for clarity and succinctness. Outpatient Medications Marked as Taking for the 12/29/21 encounter (Office Visit) with Kale Sy MD Medication Sig Dispense Refill ??? oxyCODONE (Roxicodone) 5 mg Tablet Take 1 tablet by mouth every 4 hours as needed for Pain. 30 tablet 0 ? ? lidocaine (Xylocaine) 2 % Solution Patient to mix equal parts with OTC Maalox & Benadryl. Swallow 5 mls of mixture PRN for throat pain. No more than 8 doses per day' (Patient taking differently: Patient to mix equal parts with OTC Maalox & Benadryl. Swallow 5 mls of mixture PRN for throat pain. No more than 8 doses per day') 100 mL 1 ??? polyethylene glycoL (Miralax) 17 gram/dose Powder [...] mouth. ??? fluticasone propionate (FLONASE) 50 mcg/actuation [place], Suspension by Each Nare route daily. ??? simvastatin (ZOCOR) 80 mg tablet 80MG, PO, Every other day ??? allopurinol (ZYLOPRIM) 300 mg tablet 300mg, PO, QAM Review of Systems: Review of systems is negative for other ELECTRONIC PAGINATION SYSTEM OPERATOR, bone, pulmonary, cardiac, GI, , extremity, neurologic, endocrine, skin, constitutional, emotional, or functional problems. Vitals Flowsheet Row Office Visit from 12/29/2021 in Hematology/Oncology at [facility] Weight 84.9 kg (187 lb 3.2 oz) Temp 36.5 ??C (97.7 ??F) Temp src Temporal Heart Rate 91 Heart Rate Source Right, NIBP Resp 16 BP 112/58 BP Location Right arm Patient Position Sitting SpO2 97 % Karnofsky Score 70 Sensory Neuropathy Grade 1 [hands] Body surface area is 2.03 meters squared. Wt Readings from Last 3 Encounters: 12/29/21 84.9 kg (187 lb 3.2 oz) 12/24/21 88.3 kg (194 lb 9.6 oz) 12/23/21 85.3 kg (188 lb) No results found for this or any previous visit (from the past 72 hour(s)). ++++++++++++++++++++++++++++++++++++++++++++++++++++ Darion Ambrose RN - 12/29/2021 1:45 PM EDT RESEARCH NURSE OFFICE NOTE ?? 12/29/2021 Study Number:[id number] Description:Comparing high-dose cisplatin every three weeks to low-dose cisplatin weekly when combined with radiation for patients with advanced head and neck cancer. Randomized to weekly low dose cisplatin ?? SUBJECTIVE Pino Wong presented to hem-onc clinic and I spoke with him via telephone from [place]. Pt was also evaluated by Dr Sy today please see his note. The plan is to administer his weekly cisplatin tomorrow. The adverse events on RN AE table were reviewed and updated accordingly STUDY ASSESSMENTS COMPLETED Patient states continued pharyngeal pain but it is doing well with oxycodone every 4-6 hours, notinghis pain is 1-2 after oxycodone and 8-9 prior to his next dose. He notes having continued dry mouth and is using the salt water /baking soda rinses often.?? He has been able to drink ensure and about 1 bottle of water per day. He is taking 2 cans of tube feeding once per day. He notes being a bit constipated and taking miralax as written, he reports his last bowel movement being 2 days ago. He notes continued fatigue but is still able to carry wood in anddo house hold activities.He also c/o dryness in mouth and having to get up frequently during the night to drink and rinse his mouth out. He is using the salt water /baking soda rinses often.He notes his secretions are thick and occasional blood tinged. ? PREVIOUS CYCLE SUPPLIES & MEDICATION COLLECTED ?? n/a ?? MEDICATION DISPENSED n/a SUPPLIES DISPENSED ?? n/a ?? Unsolicited AE/SIDE EFFECT MONITORING # AE Grade (CTCAE v. ) Start date Stop Date Study Related Intervention/Outcome 1 ?? dysgeusia 1 2 12/15/21 12/25/21 ? Is affecting his appetite 2 constipation 1 12/14/21 ? Intermittent Relieved by miralax 3 Increased oral mucous, secretions 1 12/15/21 ? He states this is same, not worse ? << solicited AEs >> ? 1 anemia 0 ? 2 Ear pain 0 ? 3 Hearing impairment 0 ? 4 Middle ear inflammation 0 ? 5 tinnitus 1 baseline? 6 vertigo 0 ? 7 Vestibular disorder 0 ? 8 Dry mouth 1 2 12/15/21 12/25/21 ? Using salt water/baking soda rinses 9 dysphagia 0 ? 10 Mucositis oral 1 12/25/21 ? Gums bleeding when brushing. No c/o pain 11 Nausea 0 ? 12 vomiting 0 ? 13 fatigue 0 ? 14 pain 1 2 04/202112/25/21 ? Start oxycodone 5 mg Q 4hr PRN 12/26/21 15 Dermatitis radiation 1 ? 16 ANC decreased 0 ? 17 Weight loss 0 ? 18 anorexia 1 ? 19 dehydration 0 ? 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 22 Pharyngeal mucositis 3 12/25/21 ? Start oxycodone PRN ? EDUCATION PROVIDED ?? Pt instructed to call clinic with any questions or concerns. For weekend coverage while our clinic is closed, the patient was instructed to call [facility] at [phone] and ask for the front end software engineer radiation or medical oncologist. Patient verbalized understanding. ?? Surveys: None today . ?? PLAN 1. Subject agrees to continue on study HN009 per protocol. Daily XRT 2. Next Appt with Dr Sy 01/05 with labs prior. Weekly chemo Saturday 01/06 ? Patient verbalizes understanding of, and agreement with, plan. Advised to contact this office for any questions/concerns, as well as for any new or worsening symptoms. documented in this encounter Plan of Treatment Upcoming Encounters Date Type Specialty Care Team Description 01/26/2022 Infusion Hematology and Oncology 01/26/2022 Office Visit Hematology and Oncology Mirta Sy MD [facility] DR ONCOLOGY DEPT. [place], [place] [address] (Wo rk) 01/28/2022 Office Visit Radiation Oncology Chilango Michel MD [facility] RADIATION ONCOLO [place], [place] [address] (Wo rk) 01/29/2022 Infusion Hematology and Oncology 02/05/2022 Infusion Hematology and Oncology documented as of this encounter Visit Diagnoses Diagnosis Tonsil cancer Malignant neoplasm of tonsil documented in this encounter Care Teams Departmental Secretary Relationship Specialty Start Date End Date Amelia Gomes APRN PCP - General Family Medicine 10/17/[address] [place] [address] [address] [place] [address] documented as of this encounter
--- OUTSIDE RECORDS SUMMARY | 2022-01-24 03:57 | XMS_ITS | Encounter Summary ---
:1935 Author Organization [facility] [place] [address] Care Team Providers Name Role Phone MateoZaid simpsonAmeliamat Branch APRN Primary Care Provider Reason for Visit Reason Comments IV Medication Hydration Treatment/Therapy Plan Authorization (Routine) - Authorized Specialty Diagnoses / Procedures Referred By Contact Refer red To Contact Hematology and Oncology Diagnoses Tonsil cancer History of kidney stones Gilbert's syndrome Kale Sy MD [facility] Hem Onc Infusion Procedures , [facility] [address] [facility] [place], [place] ONCOLOGY DEPT. [id number] [place] [address] Referral ID Status Reason Start Date Expiration Date Visits V isits Requested Authorized [id number] Authorized 12/08/2021 02/25/2022 99 99 Encounter Details Date Type Department Care Team Description 01/02/2022 Infusion Hematology Oncology at [facility] lbert's syndrome; [facility] Tonsil cancer; [address] [place] [address] History of kidney stones [place], [place] [phone] Social History Tobacco Use [...] encounter Progress Notes Sepideh Nelson RN - 01/02/2022 8:30 AM EDT INFUSION THERAPY ADMINISTRATION NOTES DIAGNOSIS: Tonsil Cancer REASON FOR VISIT: Hydration SUBJECTIVE Pino Wong is here for hydration. He states his throat is very dry. Pain in his throat is controlled at this moment. States he is not having any problems with nausea right now and did not feel he needed the zofran during hydration today. OBJECTIVE LAB DATA: Done 12/29/21 at [facility] for treatment today. IV ACCESS: Implanted port accessed prior to hydration and removed after with a flush of 20cc NS and 500 unit heparin. Pre administration: Chemotherapy orders independently verified for drug name, route, and dosage per patient's height, weight and BSA by Sepideh Walker, RN & On-site pharmacist. REACTIONS (DESCRIPTION, TIME, INTERVENTION AND EFFECTIVENESS) none ASSESSMENT Pino was awake, alert and tolerated treatment well. PLAN Return to clinic next week. documented in this encounter Plan of Treatment Upcoming Encounters Date Type Specialty Care Team Description 01/26/2022 Infusion Hematology and Oncology 01/26/2022 Office Visit Hematology and Oncology Mirta Sy MD [facility] DR ONCOLOGY DEPT. [place], [place] [address] (Wo rk) 01/28/2022 Office Visit Radiation Oncology Chilango Michel MD [facility] RADIATION ONCOLO GY [place], [place] [address] (Wo rk) 01/29/2022 Infusion Hematology [...] Date Dose Rate Site sodium chloride 0.9% infusion New Bag 01/02/2022 8:23 AM EDT 1,000 mLs 1,000 mL (1 L), Intravenous, ONCE, 1 dose, On Wed01/02/22 at 0830, Administer over 2 hours documented in this encounter Care Teams Steel Molder Relationship Specialty Start Date End Date Amelia Gomes APRN PCP - General Family Medicine 10/17/[address] [place] [address] documented as of this encounter
--- OUTSIDE RECORDS SUMMARY | 2022-01-24 03:57 | XMS_ITS | Encounter Summary ---
:1935 Author Organization [facility] [place] [address] Care Team Providers Name Role Phone Amelia Gomes APRN Primary Care Provider [phone] Encounter Details Date Type Department Care Team Description 01/07/2022 Office Visit Radiation Oncology at [facility] Marito MD Tonsil cancer [address] RADIATION ONCOLOGY [place], [place] [phone] Social History Tobacco Use Types Packs/Day Years [...] Sign Reading Time Taken Comments Blood Pressure 111/55 01/07/2022 4:19 PM EDT Pulse 80 01/07/2022 4:19 PM EDT Temperature 36.7 ??C (98.1 ??F) 01/07/2022 4:19 PM EDT Respiratory Rate 18 01/07/2022 4:19 PM EDT Oxygen Saturation 97% 01/07/2022 4:19 PM EDT Inhaled Oxygen Concentration - - Weight 86.3 kg (190 lb 3.2 oz) 01/07/2022 4:19 PM with shoes EDT Height - - Body Mass Index 28.07 01/06/2022 8:24 AM EDT documented in this encounter Progress Notes Marito Michel MD - 01/07/2022 4:00 PM EDT Images from the original note were not included. [facility] Radiation Oncology Radiation Oncology On-treatment Visit [...] (AMB) 01/06/2022 CISplatin (Platinol) IV 81 mg Treatment Plan Images: Treatment Progress: 46.64 Gy in 22 fractions Setup films checked and approved. Clinical Course: Interval History: Symptoms Intervention Pain Significant pain posterior oropharynx, R > L, rated as a 2 to 10 / 10 depending on oxycodoneuse. 5 - 10 mg Oxycodone every four hours Secretions / Dryness High level dysgeusia, severe xerostomia. Using BSSW, Healios. Nutrition / G Tube Small volume by mouth, only water by mouth; using G tube for nutrition (5 feeds/day) Swallowing Function No issues Skin Mild pruritis neck Phytoplex GI N/V Occasional nausea, no vomiting Compazine Bowel Function Constipation Miralax Other Exam: Patient Vitals for the past 24 hrs: Temp Pulse Resp BP SpO2 01/07/22 1619 36.7 ??C (98.1 ??F) 80 18 111/55 97 % Weight : 90.1 kg initial Change: 87 => 86.3 SKIN: mild skin erythema HEENT: confluent mucositis [...] prn ?? Oxycodone 5-10 mg prn ?? ADD Fentanyl 12 mcg ?? Skin: topical cream prn ?? Mucositis: ?? Pain control: see above ?? Oral hygiene consisting of baking soda/salt rinse at least 8 times daily ?? Alimentation: keypunch operator following ?? Weight decreased, primarily G tube [...] predominantly whispered speech NA ??? National Cancer [place] (NCI) Comprehensive Cancer Center ??? [employer] Commission on Cancer (ACS L[employer]pez) Accredited Cancer Program ??? [employer] (ACR) Accredited Radiation Oncology Program documented in this encounter Plan of Treatment Upcoming Encounters Date Type Specialty Care Team Description 01/26/2022 Infusion Hematology and Oncology 01/26/2022 Office Visit Hematology and Oncology Mirta Sy MD [facility] ONCOLOGY DEPT. [place], [place] [address] (Wo rk) 01/28/2022 Office Visit Radiation Oncology Chilango Michel MD [facility] RADIATION ONCSHANTEL [place], [place] [address] (Wo rk) 01/29/2022 Infusion Hematology and Oncology 02/05/2022 Infusion Hematology and Oncology documented as of this encounter Visit Diagnoses Diagnosis Tonsil cancer Malignant neoplasm of tonsil documented in this encounter Care Teams Treasury Analyst Relationship Specialty Start Date End Date Amelia Gomes APRN PCP - General Family Medicine 10/17/[address] [place] [address] [address] [place] [address] documented as of this encounter
--- OUTSIDE RECORDS SUMMARY | 2022-01-24 03:57 | XMS_ITS | Encounter Summary ---
:1935 Author Organization [facility] [place] [address] Care Team Providers Name Role Phone Amelia Gomes APRN Primary Care Provider [phone] Encounter Details Date Type Department Care Team Description 12/19/2021 [facility] Tonsil cancer [address] HEMATOLOGY AND [address] ONCOLOGY [phone] [place], [place] [address] (Wo rk) Social History Tobacco Use Types [...] Progress Notes Page, Gris Ward, RD - 12/19/2021 9:30 AM EDT Nutrition Note Met with patient and his in hydration today. Patient started concurrent chemoradiation therapy for tonsil cancer on 12/09/21. He reports he is experiencing some dry mouth and taste changes. He cannot taste the salt in the BSSW rinses he is doing. Provided teaching on how to use g-tube for feedings and encouraged patient to start with 1 carton Nutren 1.5 per day. Daily miralax was added this week. Wt Readings from Last 10 Encounters: 12/19/21 88.2 kg (194 lb 6.4 oz) [...] 11/20/21 89.3 kg (196 lb 12.8 oz) 09/17/21 93.4 kg (206 lb) BMI 28.69 12/09 start of treatment Weight fairly stable since start of treatment, though 12 pound loss in the past 3 months (5.8% body weight) - not significant Medications: Miralax daily, compazine prn, tylenol prn, saw palmetto, krill oil, simvastatin, allopurinol Patient started concurrent treatment with weekly cisplatin and daily radiation on 12/09/21. Labs on 12/15: Ca 8.5, BG 175H, BUN 18, Creat 1.0, Alb 3.1, TBili 0.9, Alk Phos 67, Na 137, K 3.9, AST 16, ALT 26, Mg 1.8 Diet History: Patient continues to eat 3 meals/day, though he is having to make more of an effort toeat as he is starting to experience dry mouth and taste changes. He has tried Ensure but is not drinking this on a daily basis. Enteral Nutrition: G-tube placed by IR in [place] on 11/13/21. He is flushing with water BID but has not started feedings yet. Dr. Sy checked balloon on 12/15. Taught patient how to administer enteral formula through g-tube using gravity feed method today. Encouraged him to start with one carton Nutren 1.5 per day (375 kcals, 17 g protein). Gave patient 6 cartons Nutren 1.5, 6 gravity bags, Enfit syringes today. Nutrition Problem: Involuntary weight loss related to tonsil cancer as evidenced by 12 pound loss in the past 3 months (5.8% body weight) - not significant Improved--weight stable for the past 1.5 weeks since start of treatment Estimated needs based on 88.2 [id number] kcals (25-30 kcal/kg) 88-132 g protein (1-1.5 g/kg) 1 ml/kcal fluids Recommendations: * Encouraged adequate water intake to help with dry mouth. Provided handout on dry mouth and thick saliva. Patient is doing BSSW rinses. * Briefly discussed taste changes and encouraged continuing with PO intake despite this, as he has been. * Provided g-tube teaching. Encouraged starting 1 carton Nutren 1.5 per day. Provided samples of formula and gravity bags. Order not yet placed with supply company. Will f/u on 12/22. documented in this encounter Plan of Treatment Upcoming Encounters Date Type Specialty Care Team Description 01/26/2022 Infusion Hematology and Oncology 01/26/2022 Office Visit Hematology and Oncology Mirta Sy MD [facility] DR ONCOLOGY DEPT. [place], [place] [address] (Wo rk) 01/28/2022 Office Visit Radiation Oncology Chilango Michel MD [facility] RADIATION ONCOLO [place], [place] [address] (Wo rk) 01/29/2022 Infusion Hematology and Oncology 02/05/2022 Infusion Hematology and Oncology documented as of this encounter Visit Diagnoses Diagnosis Tonsil cancer Malignant neoplasm of tonsil documented in this encounter Care Teams Dairy Hand Relationship Specialty Start Date End Date Amelia Gomes APRN PCP - General Family Medicine 10/17/20 [address] [place] [address] documented as of this encounter
--- OUTSIDE RECORDS SUMMARY | 2022-01-24 03:57 | XMS_ITS | Encounter Summary ---
:1935 Author Organization [facility] [place] [address] Care Team Providers Name Role Phone Amelia Gomes APRN Primary Care Provider Encounter Details Date Type Department Care Team Description 12/26/2021 Unscheduled Encounter Hematology and Kale Sy, Tonsil cancer Oncology at [facility] [address] ONCOLOGY DEPT. [address] [place] [address] [phone] Social History Tobacco Use Types Packs/Day Years [...] Progress Notes Page, Gris Ward, RD - 12/26/2021 9:20 AM EDT Nutrition Note Spoke with patient in hydration today. He is struggling more with pain which is worse when he swallows. BMX does not seem to be very helpful with relieving this pain. Dr. Michel put in order for prn Oxycodone today. Patient is also having taste changes and says he has always had difficulty eating/drinking things he doesn't care for the taste of. He has dry mouth and thick spit which is sometimes brown or blood tinged. This has been making it hard for him to sleep at night. Patient's intake consisted of 2 Ensure Plus by mouth and 2 Nutren 1.5 via g-tube yesterday (1450 kcals, 66 g protein). He is drinking water. G-tube is functioning well and yesterday he took 2 Nutren 1.5 in one feeding without difficulty. Wt Readings from Last 10 Encounters: 12/24/21 88.3 kg (194 lb 9.6 oz) [...] 12/09/21 88.1 kg (194 lb 3.2 oz) 09/17/21 93.4 kg (206 lb) BMI 28.69 12/24--patient wore heavy boots 12/09 started treatment 4# loss in the past week (2.1% body weight) - significant 18# loss in the past 3 months (8.8% body weight) - significant Medications: Oxycodone prn, BMX, Miralax daily, compazine prn, tylenol prn, saw palmetto, krill oil,simvastatin, allopurinol ?? Patient started concurrent treatment with weekly cisplatin and daily radiation on 12/09/21. ?? 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 * Patient will need 5-6 Nutren 1.5/Ensure Plus per day if these are the sole source of his kcal/protein intake. Encouraged increasing to 5 bottles total per day over the weekend. Provided more gravity bags. Patient has about 1/2 case Nutren 1.5 at home. Will put an order in for enteral supplies once his Nutren 1.5 intake increases more. * Patient is using Healios glutamine/trealose rinses and feels it is providing some relief from mucositis. He is running low on the samples I gave him. Provided coupon for purchasing more online. * Gave samples of alcohol-free mouthwash and talked about Biotine mouthwash and lozenges for dry mouth. Encouraged adequate hydration for dry mouth as well. Will f/u on 12/29 documented in this encounter Plan of Treatment Upcoming Encounters Date Type Specialty Care Team Description 01/26/2022 Infusion Hematology and Oncology 01/26/2022 Office Visit Hematology and Oncology Mirta Sy MD [facility] DR ONCOLOGY DEPT. [place], [place] [address] (Wo rk) 01/28/2022 Office Visit Radiation Oncology Chilango Michel MD [facility] RADIATION ONCOLO [place], [place] [address] (Wo rk) 01/29/2022 Infusion Hematology and Oncology 02/05/2022 Infusion Hematology and Oncology documented as of this encounter Visit Diagnoses Diagnosis Tonsil cancer Malignant neoplasm of tonsil documented in this encounter Care Teams Educational Assistant Relationship Specialty Start Date End Date Amelia Gomes APRN PCP - General Family Medicine 10/17/[address] [place] [address] documented as of this encounter
--- OUTSIDE RECORDS SUMMARY | 2022-01-24 03:57 | XMS_ITS | Encounter Summary ---
:1935 Author Organization [place] [address] Care Team Providers Name Role Phone Mireya Ameliamat Branch APRN Primary Care Provider [phone] Encounter Details Date Type Department Care Team Description 01/12/2022 Office Visit Hematology/Oncology at [facility] avi Jack MD Tonsil cancer; [facility] Oral candidiasis [address] [place], [place] ONCOLOGY DEPT. [address] [place] [address] [phone] (Wo rk) Social History Tobacco Use Types [...] place to sleep or slept in a retirement (including now)? Sex Assigned at Date Recorded Not on file documented as of this encounter Last Filed Vital Signs Vital Sign Reading Time Taken Comments Blood Pressure 143/77 01/12/2022 9:29 AM EDT Pulse 91 01/12/2022 9:29 AM EDT Temperature 36.7 ??C (98 ??F) 01/12/2022 9:29 AM EDT Respiratory Rate 16 01/12/2022 9:29 AM EDT Oxygen Saturation 97% 01/12/2022 9:29 AM EDT Inhaled Oxygen Concentration - - Weight 83.5 kg (184 lb) 01/12/2022 9:29 AM EDT Height 175.3 cm (5' 9.02) 01/12/2022 9:29 AM EDT Body Mass Index 27.16 01/12/2022 9:29 AM EDT documented in this encounter Progress Notes Kale Sy MD - 01/12/2022 9:30 AM EDT Images from the original note were not included. Hematology/Oncology Clinic [facility] Patient Active Problem List Diagnosis ??? Tonsil [...] History of nonmelanoma skin cancer BCC- left [facility] Onc checkup. Due for cisplatin dose #6 tomorrow. Radiation dose approx 52 Gy; due to finish on 01/22. This past week has been a little harder on Pino. He is having increased mouth and throat pain. Atthe last week's visit we switched from oxycodone tablets to oxycodone liquid, and escalated the dosefrom 5 mg every 4 hours to 7.5 mg. Because of ongoing pain despite this, a fentanyl 12 mcg/h patch was added to the regimen by Dr. Daniel Michel radiation oncology on 01/07. This has improved his pain control slightly. However, simultaneous with this, he is noted a bit more unsteadiness of gait. He feels much more comfortable if he can have something to hold onto, either of the durbin of the hallway, a doorway, and today he came into clinic in wheelchair. He has noted an increase in peripheral neuropathy. Fingertip numbness is still episodic, but he is having more and more persistent episodes of numbness sensation in the toes. Hearing acuity seems unchanged, but he notes more frequent episodes of tinnitus. He has had more but intermittent trouble with nausea. He has ondansetron oral dissolving tablets which are helpful. He had 1 episode of emesis this morning. Bowels remain slightly sluggish, and he continues to use MiraLAX. We have been having him come in on Wednesday of each week for intravenous hydration and antiemetic support which he finds mildly helpful. He is more fatigued in general. I would estimate his KPS at 80. Physical exam: He is in his usual quiet good spirits, in no acute distress Vocal phonation and articulation are normal. Oral exam shows extensive patchy mucositis with sharp delineation in the posterior soft palate and oropharynx. The right tonsil tumor is almost completely flattened. I see nothing significant on the left. The tongue is mobile. There is some white plaques consistent with candidiasis more anteriorly dominantly on the left. Neck exam is free of adenopathy. Skin in the radiation field has grade 1 erythema The chest is clear Cardiac exam is normal Mediport is benign Abdomen is benign without hepatosplenomegaly or masses. The G-tube site is clean and nontender Extremities normal, without clubbing cyanosis or edema Neurologic exam grossly nonfocal. He does appear a bit tremulous diffusely. He is able to walk independently but with a wider base gait and slower and less confident than baseline. Romberg testing shows some wobbling. Cranial nerves normal, except that I have to speak up very slightly for him to hear me, but this seems unchanged from baseline. Reflexes 2+ Labs: Today's white count 2.17 with ANC 1560, hemoglobin 11.9, platelets 114. Sodium low but stable at 135, electrolytes otherwise normal; BUN 21, creatinine 1.0. Calcium normal, no magnesium resulted yet. Hepatic enzymes normal. Albumin 3.0. 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 Increasing toxicity, but nothing unexpected qualitatively or quantitatively. He is developing some unsteadiness of gait. 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 I would score his peripheral neuropathy agrade 2. He is developing borderline neutropenia but not to the level requiring holding chemotherapy(threshold is ANC 1200 or less). Plan: 1. For candidiasis, add nystatin oral suspension 4 times daily. I would plan on continuing this through the end of treatment 2. I think it is safest to assume that his unsteady gait is due to grade 2 neuropathy, and thereforeI plan to reduce the cisplatin dose to 30 mg per metered squared per protocol guidelines. 3. Discontinue fentanyl patch for the time being. I recommended instead that he increase the dose ofoxycodone to 10 mg every 4 hours as needed. Continue G-tube support for nutrition. He is seeing Gris Dawn RD today. 4. I recommended that he get in more salt to help his hyponatremia. This could be in the form of table salt added to the tube feedings, or as hydration with the use of bouillon cubes dissolved in waterand strain to remove particulates. 5. I also favor giving him additional IV fluid in clinic periodically, and will request an infusion visit on . Kale Sy MD, FACP die developer Hematology/Oncology Section [facility]/[address] [address] Voice recognition software used for this note; please excuse curriculum coach errors. I personally reviewed past medical, surgical, family medical histories, reviewed current medications, vital signs, labs, and performed full review of systems. These are documented below the narrative for clarity and succinctness. Outpatient Medications Marked as Taking for the 01/12/22 encounter (Office Visit) with Jamal Sy MD Medication Sig Dispense Refill ??? fentaNYL (Duragesic) 12 mcg/hr Patch 72 hr Change 1 patch on the skin every 3 days. 5 patch 0 ??? oxyCODONE (Roxicodone) 5 mg/5 mL Solution Take 7.5 mLs by mouth every 4 hours as needed for Pain. May increase to 10 mg every 4 hours if necessary. 500 mL 0 ??? ondansetron ODT (Zofran-ODT) 8 [...] onto teeth nightly. 56 g PRN ??? fluticasone propionate (FLONASE) 50 mcg/actuation [place], Suspension by Each Nare route daily. Review of Systems: Review of systems is negative for other MAINTENANCE CONTROLLER, bone, pulmonary, cardiac, GI, , extremity, neurologic, endocrine, skin, constitutional, emotional, or functional problems. Vitals Flowsheet Row Office Visit from 01/12/2022 in Hematology/Oncology at [facility] Weight 83.5 kg (184 lb) Height 175.3 cm (5' 9.02) BSA (Calculated - sq m) 2.02 sq meters BMI (Calculated) 27.16 Temp 36.7 ??C (98 ??F) Temp src Temporal Heart Rate 91 Heart Rate Source Right, NIBP Resp 16 BP 143/77 BP Location Right arm Patient Position Sitting SpO2 97 % Karnofsky Score 70 Sensory Neuropathy Grade 1 [hands and feet] Body surface area is 2.02 meters squared. Wt Readings from Last 3 Encounters: 01/12/22 83.5 kg (184 lb) 01/07/22 86.3 kg (190 lb 3.2 oz) 01/06/22 84.6 kg (186 lb 6.4 oz) No results found for this or any previous visit (from the past 72 hour(s)). ++++++++++++++++++++++++++++++++++++++++++++++++++++ Kaley Lee RN - 01/12/2022 9:30 AM EDT RESEARCH NURSE OFFICE NOTE Week 2 (day 8) >>>tomorrow 01/12/2022 Study Number:[id number] Description:Comparing high-dose cisplatin every [...] he is in good health. 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 For Weekend/Holiday coverage while our clinic is closed, the patient was instructed to call [facility] at [phone] and ask for the basket person radiation oncologist. Patient verbalized understanding. Surveys: None today . PLAN 1. Subject agrees to continue on study HN009 per protocol. Daily XRT 2. Chemo tomorrow; week 2 . 3. Ordered speech therpapy referral today. 4. Waiting for audiogram appointment. Automation Engineer is checking to see if it can be done locally in [facility]. Patient verbalizes understanding of, and agreement with, plan. Advised to contact this office for any questions/concerns, as well as for any new or worsening symptoms. documented in this encounter Plan of Treatment Upcoming Encounters Date Type Specialty Care Team Description 01/26/2022 Infusion Hematology and Oncology 01/26/2022 Office Visit Hematology and Oncology Mirta Sy MD [facility] DR ONCOLOGY DEPT. [place], [place] [address] (Wo rk) 01/28/2022 Office Visit Radiation Oncology Chilango Michel MD [facility] RADIATION ON[place], [place] [address] (Wo rk) 01/29/2022 Infusion Hematology and Oncology 02/05/2022 Infusion Hematology and Oncology documented as of this encounter Visit Diagnoses Diagnosis Tonsil cancer Malignant neoplasm of tonsil Oral candidiasis Candidiasis of mouth documented in this encounter Care Teams Talent Advisor Relationship Specialty Start Date End Date Amelia Gomes APRN PCP - General Family Medicine 10/17/[address] [place] [address] [address] [place] [address] documented as of this encounter
--- OUTSIDE RECORDS SUMMARY | 2022-01-24 03:57 | XMS_ITS | Encounter Summary ---
:1935 Author Organization [facility] [place] [address] Care Team Providers Name Role Phone Amelia Gomes APRN Primary Care Provider [phone] Encounter Details Date Type Department Care Team Description 12/09/2021 Orders Only Hematology and Oncology at Kale Sy MD [facility] [address] [place] [address] [phone] (Wo rk) Social History Tobacco Use Types [...] and Oncology Mirta Sy MD [facility] DR ONCOLOGY DEPT. [place], [place] [address] (Wo rk) 01/28/2022 Office Visit Radiation Oncology Chilango Michel MD [facility] RADIATION ONCOLO [place], [place] [address] (Wo rk) 01/29/2022 Infusion Hematology and Oncology 02/05/2022 Infusion Hematology and Oncology documented as of this encounter Visit Diagnoses Not on filedocumented in this encounter Care Teams Show Dog Trainer Relationship Specialty Start Date End Date Amelia Gomes APRN PCP - General Family Medicine 10/17/20 [facility] [address] [place] [address] documented as of this encounter
--- OUTSIDE RECORDS SUMMARY | 2022-01-24 03:57 | XMS_ITS | Encounter Summary ---
:1935 Author Organization [facility] [place] [address] Care Team Providers Name Role Phone Amelia Gomes APRN Primary Care Provider [phone] Encounter Details Date Type Department Care Team Description 01/05/2022 [facility] Tonsil cancer [address] HEMATOLOGY AND [address] ONCOLOGY [phone] [place], [place] [address] (Wo rk) Social History Tobacco Use Types [...] Progress Notes Page, Gris Ward, RD - 01/05/2022 11:30 AM EDT Nutrition Note Met with Seferino after his appointment with Dr. Sy today. He started concurrent treatment for tonsil cancer on 12/09 and is at the beginning of week 5 now. Patient is having more difficulty with painful swallowing and continues to have taste changes and try mouth. He is now taking very little PO, only sips of water. He put 3 cartons Nutren 1.5 and 2 cartons Ensure plus through his feeding tube yesterday (01/04) which is an increase compared to last week from 4 to 5 cartons/day. He is taking miralax for constipation related to oxycodone. Patient is not exactly sure how much water he is putting through g-tube. He continues to use Healios glutamine supplement. Patient has developed a gag sensitivity, feels nauseous and about to vomit when he tries to swallow anything. Dr. Sy added Zofran-ODT today. Wt Readings from Last 10 Encounters: 01/05/22 84.2 kg (185 lb 9.6 [...] 12/16/21 87.4 kg (192 lb 9.6 oz) 12/09?194# start of treatment BMI 27.51 Weight has varied 186-194#, likely related to changes in hydration status Down 6# over the past 5 days (3.2% body weight) - significant 8.5# loss since start of treatment almost 1 month ago (4.4% body weight) - not significant Diet: Limited to sips of water only. Enteral: G-tube was placed on 11/13 by IR at [facility]. He is currently taking 3 cartons Nutren 1.5 and 2 bottles Ensure Plus via g-tube using gravity bags. He is unsure of how much water he is taking in. Medications: Oxycodone 7.5 mg every 4 hours prn, zofran-ODT, BMX, miralax daily, compazine prn, saw palmetto, krill oil, tylenol prn, simvastatin, allopurinol. Week 5 of concurrent cisplatin and daily RT for tonsil cancer with curative intent. Labs on 01/05: WBC 3.8, ANC 2880, Hgb 12.8, platelets 145, Na 135, K 4.2, BUN 18, Creat 0.9, BG 118,Mg 1.8, LFTs wnl, Alb 3.0 Nutrition Problem: Swallowing difficulty/inadequate PO intake related to mucositis secondary to concurrent HN cancer treatment as evidenced by reliance on g-tube feeds for 100% calorie and protein needs. Estimated needs based on 84.6 [id number] kcals (25-30 kcal/kg) 85-128 g protein (1-1.5 g/kg) 1 ml/kcal fluids Recommend: * Take 5 cartons Nutren 1.5 via g-tube using gravity bags to provide 1875 kcals, 85 g protein, 955 ml water. Encouraged tracking his water intake and aiming for 1 L additional free water per day. Provided with 1 liter container to help him reach this goal. * Discussed using Nutren 1.5 through g-tube, not Ensure Plus. * Continue with PO intake as much as possible to help conserve swallow function. * Helped arrange for patient to have remote appointment with Bonnie Arevalo on 01/07. documented in this encounter Plan of Treatment Upcoming Encounters Date Type Specialty Care Team Description 01/26/2022 Infusion Hematology and Oncology 01/26/2022 Office Visit Hematology and Oncology Mirta Sy MD [facility] DR ONCOLOGY DEPT. [place], [place] [address] (Wo rk) 01/28/2022 Office Visit Radiation Oncology Chilango Michel MD [facility] RADIATION ONCOLO [place]Y [place], [place] [address] (Wo rk) 01/29/2022 Infusion Hematology and Oncology 02/05/2022 Infusion Hematology and Oncology documented as of this encounter Visit Diagnoses Diagnosis Tonsil cancer Malignant neoplasm of tonsil documented in this encounter Care Teams Experimental Worker Relationship Specialty Start Date End Date Amelia Gomes APRN PCP - General Family Medicine 10/17/[address] [place] [address] documented as of this encounter
--- OUTSIDE RECORDS SUMMARY | 2022-01-24 03:57 | XMS_ITS | Encounter Summary ---
:1935 Author Organization [facility] [place] [address] Care Team Providers Name Role Phone Hayde Gomesleonarda Branch APRN Primary Care Provider Reason for Visit Reason Comments Chemotherapy [id number] Arm 4 Cisplatin Encounter Details Date Type Department Care Team Description 01/06/2022 Infusion Hematology Oncology at [facility] Tonsil cancer [address] [place] [phone] Social History Tobacco Use Types [...] Sign Reading Time Taken Comments Blood Pressure 154/75 01/06/2022 8:24 AM EDT Pulse 93 01/06/2022 8:24 AM EDT Temperature 36.3 ??C (97.3 ??F) 01/06/2022 8:24 AM EDT Respiratory Rate 16 01/06/2022 8:24 AM EDT Oxygen Saturation 100% 01/06/2022 8:24 AM EDT Inhaled Oxygen Concentration - - Weight 84.6 kg (186 lb 6.4 oz) 01/06/2022 8:24 AM EDT Height 175.3 cm (5' 9.02) 01/06/2022 8:24 AM EDT Body Mass Index 27.51 01/06/2022 8:24 AM EDT documented in this encounter Progress Notes Vidya Beck RN - 01/06/2022 8:30 AM EDT INFUSION THERAPY ADMINISTRATION NOTES DIAGNOSIS: Tonsillar cancer CYCLE #: [id number] Arm 4, Day 29 - Cisplatin concurrent with radiation. REASON FOR VISIT: To receive planned therapy. SUBJECTIVE: Pnio is reporting nausea this morning which he took home medications for. He has not eaten anything or taken in tube feeds yet today. Offered tube feed while in clinic but pt refused. Heis having a hard time with swallowing. He is going to fiber picker liquid oxycodone today. OBJECTIVE: VSS. Weight stable. LAB DATA: From 01/05/22 WBC 3.80, H/H 12.8/37.6, Plt Ct 145, ANC 2.88, Na 135, BUN/Cr 18/0.9, CA++ 8.8, MG++ 1.8 IV ACCESS: Port accessed without difficulty. Flushes readily with brisk blood return. Pre administration: Chemotherapy orders independently verified for drug name, route, and dosage per patient's height, weight and BSA by Vidya Beck RN and Staff Pharmacist(s). REACTIONS (DESCRIPTION, TIME, [...] [facility] DR ONCOLOGY DEPT. [place], [place] [address] (Wo rk) 01/28/2022 Office Visit Radiation Oncology Chilango Michel MD [facility] RADIATION ONCOLO [place], [place] [address] (Wo rk) 01/29/2022 Infusion Hematology and Oncology 02/05/2022 Infusion Hematology and Oncology documented as of this encounter Visit Diagnoses Diagnosis Tonsil cancer Malignant neoplasm of tonsil documented in this encounter Administered Medications Inactive Administered Medications - up to 3 most recent administrations Medication Order MAR Action Action Date Dose Rate Site aprepitant (CINVANTI) injection Given 01/06/2022 9:14 AM EDT 130 mg Emul 130 mg 130 mg, Intravenous, ONCE, 1 dose, On Wed01/06/22 at 0900, Prior to cisplatin Alternative administration of IV push over 2 minutes is a recommendation from the practical nursing teacher., Routine CISplatin (Platinol) 81 mg in New Bag 01/06/2022 10:12 AM EDT 81 m g 331 mL/hr sodium chloride 0.9% 331 mL infusion 81 mg, Intravenous, ONCE, 1 dose, On Wed01/06/22 at 1000, Administer over 60 Minutes, Warning Vesicant/Irritant Medication dexAMETHasone (Decadron) (10 mg/mL) injection Given 9:17 AM EDT 10 mg 10 mg 10 mg, Intravenous, ONCE, 1 dose, On Wed01/06/22 at 0900, Prior to cisplatin magnesium sulfate 1 g in dextrose 5% New Bag 01/06/2022 10:13 AM EDT 1 g 200 mL/hr 100 mL infusion 2 g, Intravenous, ONCE, 1 dose, On Wed01/06/22 at 0900, Administer over 60 Minutes, Before or during cisplatin infusion New Bag 01/06/2022 9:18 AM EDT 1 g 200 mL/hr palonosetron (Aloxi) (0.05 mg/mL) injection Given 12/27 9:15 AM EDT 0.25 mg 0.25 mg 0.25 mg, Intravenous, ONCE, 1 dose, On Wed01/06/22 at 0900, Prior to cisplatin, Routine sodium chloride 0.9% infusion New Bag 01/06/2022 9:00 AM EDT 1,000 mL/hr 1000 mL/hr 1,000 mL/hr, Intravenous, CONTINUOUS, Starting on Wed01/06/22 at 0900, Until Wed01/06/22 at 0959, Pre-cisplatin sodium chloride 0.9% infusion New Bag 01/06/2022 11:18 AM EDT 500 mL/hr 500 mL/hr 500 mL/hr, Intravenous, CONTINUOUS, Starting on Wed01/06/22 at 1100, Until Wed01/06/22 at 1159 documented in this encounter Care Teams Customs And Border Protection Officer Relationship Specialty Start Date End Date Amelia Gomes APRN PCP - General Family Medicine 10/17/[address] [place] [address] [address] [place] [address] documented as of this encounter
--- OUTSIDE RECORDS SUMMARY | 2022-01-24 03:57 | XMS_ITS | Encounter Summary ---
:1935 Author Organization [facility] [place] [address] Care Team Providers Name Role Phone Amelia Gomes APRN Primary Care Provider [phone] Encounter Details Date Type Department Care Team Description 01/02[facility]20[facility] Tonsil cancer [address] [place]OLOG[place] [phone] ONCOLOGY [phone] [place], [place] [address] (Wo rk) Social History [...] Progress Notes Page, Landry Sylvia, RD - 01/02/2022 9:30 AM EDT Nutrition Note Spoke with Seferino while he was in hydration today. 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 He is having taste changes, oral pain and dry mouth/thick spit. He continues with 2 Nutren 1.5 via g-tube and 2 cartons Ensure Plus by mouth per day (total intake 1450 kcal, 66 g protein). He is taking miralax as oxycodone has been causing some constipation. He finds Healios glutamine rinse to be helpful for mucositis symptoms. He is checking g-tube balloon at home now. Wt Readings from Last 10 Encounters: 12/31/21 87 kg (191 lb 12.8 oz) [...] 9.6 oz) 12/15/21 88 kg (194 lb) 12/09 194# start of treatment Weight varying 186-191#, possibly related to changes in fluid status. Estimated needs based on 84.6??[id number]??kcals (25-30 kcal/kg) 885-128??g protein (1-1.5 g/kg) 1 ml/kcal fluids Recommendations/Intervention: * Encouraged again increasing to 6 cartons per day (Nutren 1.5 via g-tube and/or Ensure Plus by mouth) to better meet his above estimated needs. * Provided more 48 cartons Nutren 1.5, several gravity bags, split sponges and Enfit syringes. Please see note on 12/29 for more details. Will see patient again on 01/05. documented in this encounter Plan of Treatment Upcoming Encounters Date Type Specialty Care Team Description 01/26/2022 Infusion Hematology and Oncology 01/26/2022 Office Visit Hematology and Oncology Mirta Sy MD [facility] DR ONCOLOGY DEPT. [place], [place] [address] (Wo rk) 01/28/2022 Office Visit Radiation Oncology Chilango Michel MD [facility] RADIATION ONCOLO [place], [place] [address] (Wo rk) 01/29/2022 Infusion Hematology and Oncology 02/05/2022 Infusion Hematology and Oncology documented as of this encounter Visit Diagnoses Diagnosis Tonsil cancer Malignant neoplasm of tonsil documented in this encounter Care Teams Tobacco Prevention Health Educator Relationship Specialty Start Date End Date Amelia Gomes APRN PCP - General Family Medicine 10/17/[address] [place] [address] documented as of this encounter
--- OUTSIDE RECORDS SUMMARY | 2022-01-24 03:57 | XMS_ITS | Encounter Summary ---
:1935 Author Organization [facility] [place] [address] Care Team Providers Name Role Phone Amelia Gomes APRN Primary Care Provider [phone] Encounter Details Date Type Department Care Team Description 12/08/2021 Office Visit Hematology/Oncology Kale Sy, Tons il cancer; at [facility] Xerostomia due to radiotherapy [address] [place] [phone] ONCOLOGY DEPT. [phone] [place] [address] Social History Tobacco Use Types Packs/Day Years [...] Sign Reading Time Taken Comments Blood Pressure 127/72 12/08/2021 3:26 PM EDT Pulse 86 12/08/2021 3:26 PM EDT Temperature 37 ??C (98.6 ??F) 12/08/2021 3:26 PM EDT Respiratory Rate 16 12/08/2021 3:26 PM EDT Oxygen Saturation 97% 12/08/2021 3:26 PM EDT Inhaled Oxygen Concentration - - Weight 88 kg (194 lb) 12/08/2021 3:26 PM EDT Height 175.3 cm (5' 9) 12/08/2021 3:26 PM EDT Body Mass Index 28.65 12/08/2021 3:26 PM EDT documented in this encounter Progress Notes Kale Sy MD - 12/08/2021 3:15 PM EDT Hematology/Oncology Clinic [facility] Patient Active Problem List Diagnosis ??? Tonsil [...] History of nonmelanoma skin cancer BCC- [facility]. He is due to start treatment tomorrow. After thorough discussion and review the informed consent, liza been enrolled on clinical trial and [facility] N009, and has been randomized to the weekly cisplatin 40mg per metered squared arm. He continues to feel generally quite well, although has noted a slight increase in the mild swallowing discomfort noted in the right posterior pharynx. He remains free of aspiration or obstruction symptoms. The right neck node has not really grown. He has had no major problems with the Mediport of the G-tube. However, his skin is proving quite sensitive to both Tegaderm and adhesive tape. He has some mild irritation under the bumper of the G-tube. He has been flushing this on a daily basis, it almost got clogged once but this has resolved. His diet at this point is unrestricted. KPS as of today is 100; he has been dizzy doing house and yard chores in preparation for his busy treatment schedule. Physical exam: He is accompanied today by his . Both are well-informed and in good spirits He looks well. Oral exam shows a persistent right tonsillar tumor, bright red, approximately 2 cm longitudinally and 1.5 laterally, in the right tonsillar fossa. The left tonsil is visible, smooth, approximately 6-7 mm; this would not be terribly suspicious for cancer if we had not seen the PET scan with the biopsy.The tongue moves freely. There is no halitosis. Dentition is in fairly good shape, several missing, but I see no exposed bone. No trismus. Neck exam shows a mobile roughly 1 cm node deep in right zone 2. This is smaller than when I first met him. I feel no new adenopathy on either side The lungs are clear Cardiac exam is normal Right chest Mediport is benign. Some residual skin irritation from previous Tegaderm around it. Abdomen is benign, no hepatosplenomegaly or masses. G-tube site is benign but there is some erythemaof the skin under the bumper. There is adequate play in and out. Extremities are normal, no clubbing cyanosis or edema Neurologic exam is normal, reflexes 1+. Bilateral knee replacements noted Labs: Today's labs showed normal electrolytes, normal calcium, hepatic enzymes normal. Albumin 3.4. Total bilirubin is 1.2, with conjugated fraction 0.2. White count is 5.91, hemoglobin 14.0, [id number]. Magnesium has been added to the lab order and is still pending. 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 Both are p16 positive. He is ready to begin definitive chemoradiation. He has beenrandomized to the weekly low-dose cisplatin arm of HN 009. 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 Plan: Proceed with chemotherapy and day 1 radiation tomorrow. We once again reviewed the potential side effects, the logistics of giving the chemotherapy and supportive care. We have sent in prescription for prochlorperazine to be used as needed, and we talked about how important it is to jump on nausea early.. I would like him to come back later in each treatment week for additional hydration, andwe will make these arrangements. I recommended that he apply a thin layer of Phytoplex to the skin around the G-tube. Kale Sy MD, FACP forge heater Hematology/Oncology Section [facility] [place] [address] Voice recognition software used for this note; please excuse phys ther errors. I personally reviewed past medical, surgical, family medical histories, reviewed current medications, vital signs, labs, and performed full review of systems. These are documented below the narrative for clarity and succinctness. Outpatient Medications Marked as Taking for the 12/08/21 encounter (Office Visit) with Kale Sy MD Medication Sig Dispense Refill ??? SAW PALMETTO ORAL Take by mouth. ??? KRILL OIL ORAL Take by mouth. ??? fluticasone propionate (FLONASE) 50 mcg/actuation [place], Suspension by Each Nare route daily. ??? simvastatin (ZOCOR) 80 mg tablet 80MG, PO, Every other day ??? allopurinol (ZYLOPRIM) 300 mg tablet 300mg, PO, QAM Review of Systems: Review of systems is negative for other JUSTOWRITER OPERATOR, bone, pulmonary, cardiac, GI, , extremity, neurologic, endocrine, skin, constitutional, emotional, or functional problems. Vitals Flowsheet Row Office Visit from 12/08/2021 in Hematology/Oncology at [facility] Weight 88 kg (194 lb) Height 175.3 cm (5' 9) BSA (Calculated - sq m) 2.07 sq meters BMI (Calculated) 28.65 Temp 37 ??C (98.6 ??F) Temp src Temporal Heart Rate 86 Heart Rate Source Right, NIBP Resp 16 BP 127/72 BP Location Right arm Patient Position Sitting SpO2 97 % Karnofsky Score 100 Body surface area is 2.07 meters squared. Wt Readings from Last 3 Encounters: 12/08/21 88 kg (194 lb) 11/24/21 87.6 kg (193 lb 3.2 oz) 11/20/21 89.3 kg (196 lb 12.8 oz) No results found for this or any previous visit (from the past 72 hour(s)). ++++++++++++++++++++++++++++++++++++++++++++++++++++ documented in this encounter Plan of Treatment Upcoming Encounters Date Type Specialty Care Team Description 01/26/2022 Infusion Hematology and Oncology 01/26/2022 Office Visit Hematology and Oncology Mirta Sy MD [facility] DR ONCOLOGY DEPT. [place], [place] [address] (Wo alondra) 01/28/2022 Office Visit Radiation Oncology Chilango Michel MD [facility] RADIATION [place], [place] [address] (Wo alondra) 01/29/2022 Infusion Hematology and Oncology 02/05/2022 Infusion Hematology and Oncology Scheduled Orders Name Type Priority Associated Diagnoses Order S chedule Magnesium Lab Routine Tonsil cancer Expected: 11/27, Expires: 2022 Comprehensive metabolic Lab Routine Tonsil cancer Onc e a week for 15 panel (non-fasting) Occurren niecy starting 12/08/2021 unti l 12/08/2022 CBC (with Diff) Lab Routine Tonsil cancer Once a week for 15 Occurrences sta rting 12/08/2021 unti l 12/08/2022 Magnesium Lab Routine Tonsil cancer Once a week fo r 15 Occurrences sta rting 12/08/2021 unti l 12/08/2022 documented as of this encounter Visit Diagnoses Diagnosis Tonsil cancer 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
--- OUTSIDE RECORDS SUMMARY | 2022-01-24 03:57 | XMS_ITS | Encounter Summary ---
:1935 Author Organization [facility] [place] [address] Care Team Providers Name Role Phone MateoHayde simpsonleonarda Branch APRN Primary Care Provider [phone] Encounter Details Date Type Department Care Team Description 01/12/2022 Notes [facility] [address] [phone] Social History Tobacco Use [...] encounter Progress Notes Kaley Lee, RN - 01/12/2022 9:56 AM EDT RESEARCH NURSE OFFICE NOTE Week 6 ( day 36 ) infusion tomorrow 01/12/2022 Study Number:[id number] Description:Comparing high-dose cisplatin every three weeks to low-dose cisplatin weekly when combined with radiation for patients with advanced head and neck cancer. Randomized to weekly low dose cisplatin SUBJECTIVE Pino Wong presented to hem-onc clinic. Pt was [...] of water Pain is managed by oxycone 5mg liquid every 4 hours in G-tube. Started fentayl patch last week. He c/o dryness in mouth . Has started the saltwater baking soda rinses. He continues to stay away from the X because the tase gags him and he didn feel it helped. Dr Sy assessed oral cavity and discovered thrush infection. He reports some thick secretions, but denies having difficulty in expectoration or spitting it out. He was instructed that at some point, suction can be ordered for this. He reports constipation is controlled with Miralax [...] has no redness or desquamation. He is applying the Phytoplex moisturizing cream we provided. He also saw Landry our Loss Prevention Operations Manager today. States he has numbness in right hand . This goes away when he moves it . He denies left hand dumbness. He states he has some chronic bilateral numbness in his feet, but it is worse and finds it bothersome to walk. He was able to walk short distance in exam room, however due to this complaint a dose adjustment was made to the cisplatin due to the neuropathy. PREVIOUS CYCLE SUPPLIES & MEDICATION COLLECTED ??? n/a MEDICATION DISPENSED n/a SUPPLIES DISPENSED ??? n/a Unsolicited AE/SIDE EFFECT MONITORING # AE Grade (CTCAE v. ) Start date Stop Date Study Related Intervention/Outcome 1 dysgeusia 1 2 2 2 12/15/21 12/25/21 01/05/22 01/12/22 Is affecting his appetite. Swallowing only water. Now( 01/12/22) 2 constipation 1 1 1 12/14/21 01/05/22 01/12/22 Intermittent Relieved by miralax 3 Increased oral mucous, secretions 1 1 1 1 12/15/21 12/22/21 01/05/22 01/12/22 He states this is same, not worse 4 Platelets low 1 01/12/22 01/12/22 plts 114 5 albumin 1 01/12/22 01/12/22 albumin 3.0 6 hyponatremia 1 01/12/22 01/12/22 Sodium 135 << solicited AEs >> 1 anemia 0 1 1 01/05/22 01/12/22 01/05/22 hgb 12.8 01/12/22 hgb 11.9 2 Ear pain 0 3 Hearing impairment 0 0 4 Middle ear inflammation 0 0 5 tinnitus 0 1 1 01/04/22 01/12/22 Comes and goes 6 vertigo 0 7 Vestibular disorder 0 8 Dry mouth 1 2 2 2 12/15/21 12/25/21 01/05/22 01/12/22 Using salt water/baking soda rinses 9 dysphagia 0 2 2 01/03/2212/172101/12/22 :Had phone appointment with COMPUTER NUMERICAL CONTROL MACHINIST last week. He states was helpful 10 Mucositis oral 1 2 2 12/25/21 01/05/22 01/12/22 Gums bleeding when brushing. c/o pain 11 Nausea 0 1 1 01/04/22 01/12/22 12 vomiting 0 1 1 01/04/22 01/12/22 13 fatigue 0 2 2 12/82101/12/22 14 pain 1 2 2 2 04/202112/25/21 01/05/22 01/12/22 Start oxycodone 5 mg Q 4hr PRN 12/26/21 15 Dermatitis radiation 1 1 1 12/26/21 01/05/22 01/12/22 moisturizing cream 16 ANC decreased 0 17 Weight loss 0 1 01/12/22 5% weight loss from starting weight 18 anorexia 1 2 2 12/25/21 01/03/22 01/12/22 19 dehydration 0 20 Peripheral sensory neuropathy 1 1 1 2 12/12/21 12/26/21 01/05/22 01/12/22 Right hand and some chronic bilateral feet Feet more numb. Same bilaterally. Chemo dose adjusted 01/12/22 21 Acute kidney injury 0 22 Pharyngeal mucositis 3 3 3 12/25/21 01/05/22 01/12/22 Start oxycodone PRN EDUCATION PROVIDED Start Nystatin for thrush. swish and swallow if you can. Dr Sy instructed patient to stop fenatnyl patch for now. See his note. Added extra day of hydration on day 4, ( as well as day 5, Wednesday) Pt instructed to call clinic with any questions or concerns. For weekend coverage while our clinic is closed, the patient and his were instructed to call [facility] at [phone] and ask for the cotton feeder radiation or medical oncologist. They verbalized understanding. Surveys: None today . PLAN 1. Subject agrees to continue on study [id number] per protocol. Weekly chemo tomorrow & Daily radiation treatments . 2. Weekly hydration every & Wednesday 3.. Next Appt with Dr Sy 01/19 with [...] Visit Hematology and Oncology Mirta Sy MD [facility] DR ONCOLOGY DEPT. [place], [place] [address] (Wo rk) 01/28/2022 Office Visit Radiation Oncology Chilango Michel MD [facility] RADIATION ONCOLO [place], [place] [address] (Wo rk) 01/29/2022 Infusion Hematology and Oncology 02/05/2022 Infusion Hematology and Oncology documented as of this encounter Visit Diagnoses Not on filedocumented in this encounter Care Teams Corporate Recruiter Relationship Specialty Start Date End Date Amelia Gomes APRN PCP - General Family Medicine 10/17/[address] [place] [address] documented as of this encounter
--- OUTSIDE RECORDS SUMMARY | 2022-01-24 03:57 | XMS_ITS | Encounter Summary ---
:1935 Author Organization [facility] [place] [address] Care Team Providers Name Role Phone Zaid Gomesmat Branch APRN Primary Care Provider [phone] Reason for Visit Reason Comments Other hydration Treatment/Therapy Plan Authorization (Routine) - Authorized Specialty Diagnoses / Procedures Referred By Contact Refer red To Contact Hematology and Oncology Diagnoses Tonsil cancer History of kidney stones Gilbert's syndrome Kale Sy MD [facility] [[email or web address] Hem Onc Infusion Procedures , [facility] [address] [facility] [address] [place], [place] ONCOLOGY DEPT. [phone] [place] [address] Referral ID Status Reason Start Date Expiration Date Visits V isits Requested Authorized [id number] Authorized 12/08/2021 02/25/2022 99 99 Encounter Details Date Type Department Care Team Description 12/12/2021 Infusion Hematology Oncology at [facility] lbert's syndrome; [facility] Tonsil cancer; [address] [place] [address] History of kidney stones [place], [place] [phone] Social History Tobacco Use [...] place to sleep or slept in a half-way (including now)? Sex Assigned at Date Recorded Not on file documented as of this encounter Last Filed Vital Signs Vital Sign Reading Time Taken Comments Blood Pressure 118/64 12/12/2021 1:39 PM EDT Pulse 90 12/12/2021 1:39 PM EDT Temperature 36.2 ??C (97.1 ??F) 12/12/2021 1:39 PM EDT Respiratory Rate 16 12/12/2021 1:39 PM EDT Oxygen Saturation 96% 12/12/2021 1:39 PM EDT Inhaled Oxygen Concentration - - Weight 89.4 kg (197 lb) 12/12/2021 1:39 PM EDT Height - - Body Mass Index 29.08 12/09/2021 12:55 PM EDT documented in this encounter Progress Notes Ericka Jones RN - 12/12/2021 1:30 PM EDT INFUSION THERAPY ADMINISTRATION NOTES TIME TREATMENT STARTED: 1345 TIME TREATMENT ENDED: 1550 DIAGNOSIS: :head and neck cancer CYCLE #: 1 day 4 REASON FOR VISIT: hydration SUBJECTIVE Pino E Judith offers no complaints. No nausea or vomiting. Eating OK. OBJECTIVE REACTIONS (DESCRIPTION, TIME, INTERVENTION AND EFFECTIVENESS) none ASSESSMENT Pino Wong was awake, alert and he tolerated treatment well. PLAN Return to clinic Wednesday with labs to see Dr. Isaacs next cisplat Wednesday12/16/21 documented in this encounter Plan of Treatment Upcoming Encounters Date Type Specialty Care Team Description 01/26/2022 Infusion Hematology and Oncology 01/26/2022 Office Visit Hematology and Oncology Mirta Sy MD [facility] DR ONCOLOGY DEPT. [place], [place] [address] (Wo rk) 01/28/2022 Office Visit Radiation Oncology Chilango Michel MD [facility] RADIATION ONCOLO [place], [place] [address] (Wo rk) 01/29/2022 Infusion Hematology [...] Site ondansetron (pf) (Zofran) (2 mg/mL) Given 12/12/2021 1:59 PM EDT 8 mg injection 8 mg 8 mg, Intravenous, ONCE PRN, Starting on Wed12/12/21 at 1400, Until Wed12/12/21 at 1827, Nausea, Vomiting sodium chloride 0.9% infusion New Bag 12/12/2021 1:45 PM EDT 1,000 mLs 1,000 mL (1 L), Intravenous, ONCE, 1 dose, On Wed12/12/21 at 1400, Administer over 2 hours documented in this encounter Care Teams Car Unloader Helper Relationship Specialty Start Date End Date Amelia Gomes APRN PCP - General Family Medicine 10/17/[address] [place] [address] [address] [place] [address] documented as of this encounter
--- OUTSIDE RECORDS SUMMARY | 2022-01-24 03:57 | XMS_ITS | Encounter Summary ---
:1935 Author Organization [facility] [place] [address] Care Team Providers Name Role Phone MateoZaid simpsonAmeliamat Branch APRN Primary Care Provider [phone] Reason for Visit Reason Comments Chemotherapy Arm 4, Day 22 - Cisplatin co ncurrent with radiation Encounter Details Date Type Department Care Team Description 12/30/2021 Infusion Hematology Oncology at [facility] Tonsil cancer [address] [place] [phone] Social History Tobacco Use Types [...] Sign Reading Time Taken Comments Blood Pressure 140/69 12/30/2021 8:19 AM EDT Pulse 93 12/30/2021 8:19 AM EDT Temperature 36.2 ??C (97.2 ??F) 12/30/2021 8:19 AM EDT Respiratory Rate 20 12/30/2021 8:19 AM EDT Oxygen Saturation 97% 12/30/2021 8:19 AM EDT Inhaled Oxygen Concentration - - Weight 84.6 kg (186 lb 9.6 oz) 12/30/2021 8:19 AM EDT Height 175.3 cm (5' 9.02) 12/30/2021 8:19 AM EDT Body Mass Index 27.54 12/30/2021 8:19 AM EDT documented in this encounter Progress Notes Faith Madrigal RN - 12/30/2021 8:30 AM EDT INFUSION THERAPY ADMINISTRATION NOTES DIAGNOSIS: Tonsillar cancer CYCLE #: Arm 4, Day 22 - Cisplatin concurrent with radiation. REASON FOR VISIT: To receive planned therapy. SUBJECTIVE: Pino is reporting pain upon swallow, fatigue, and constipation. He also reports mild tinnitus. OBJECTIVE: VSS. Weight stable. LAB DATA: WBC - 6.07, H/H - 13.3/40.4, Plt Ct - 195, ANC - 4.75, Lytes wnl, BUN/Cr - 26/1.1, CA++ - 8.9, MG++ - 2.1 IV ACCESS: Port accessed without difficulty. Flushes readily with brisk blood return. Pre administration: Chemotherapy orders independently verified for drug name, route, and dosage per patient's height, weight and BSA by Faith Madrigal RN and Staff Pharmacist(s). REACTIONS (DESCRIPTION, TIME, [...] [facility] DR ONCOLOGY DEPT. [place], [place] [address] (Wo rk) 01/28/2022 Office Visit Radiation Oncology Chilango Michel MD [facility] RADIATION ONCOLO [address] [place], [place] [address] (Wo rk) 01/29/2022 Infusion Hematology and Oncology 02/05/2022 Infusion Hematology and Oncology documented as of this encounter Visit Diagnoses Diagnosis Tonsil cancer Malignant neoplasm of tonsil documented in this encounter Administered Medications Inactive Administered Medications - up to 3 most recent administrations Medication Order MAR Action Action Date Dose Rate Site aprepitant (CINVANTI) injection Given 12/30/2021 9:05 AM EDT 130 mg Emul 130 mg 130 mg, Intravenous, ONCE, 1 dose, On Wed12/30/21 at 0845, Prior to cisplatin Alternative administration of IV push over 2 minutes is a recommendation from the barrel rib matting machine operator., Routine CISplatin (Platinol) 81 mg in sodium New Bag 12/30/2021 9:53 A M EDT 81 mg 331 mL/hr chloride 0.9% 331 mL infusion 81 mg (rounded from 81.3 mg), Intravenous, ONCE, 1 dose, On Wed12/30/21 at 0845, Administer over 60 Minutes, Warning Vesicant/Irritant Medication dexAMETHasone (Decadron) (10 mg/mL) injection Given 9:09 AM EDT 10 mg 10 mg 10 mg, Intravenous, ONCE, 1 dose, On Wed12/30/21 at 0845, Prior to cisplatin magnesium sulfate 2 g in sterile water New Bag 12/30/2021 9:20 AM EDT 2 g 25 mL/hr 50 mL infusion 2 g, Intravenous, ONCE, 1 dose, On Wed12/30/21 at 0915, Administer over 120 Minutes palonosetron (Aloxi) (0.05 mg/mL) injection Given 06/2021 9:11 AM EDT 0.25 mg 0.25 mg 0.25 mg, Intravenous, ONCE, 1 dose, On Wed12/30/21 at 0845, Prior to cisplatin, Routine sodium chloride 0.9% infusion New Bag 12/30/2021 8:45 AM EDT 1,000 mL/hr 1000 mL/hr 1,000 mL/hr, Intravenous, CONTINUOUS, Starting on Wed12/30/21 at 0945, Until Wed12/30/21 at 1044, One hour pre-cisplatin sodium chloride 0.9% infusion New Bag 12/30/2021 9:53 AM EDT 500 mL/hr 500 mL/hr 500 mL/hr, Intravenous, CONTINUOUS, Starting on Wed12/30/21 at 1145, Until Wed12/30/21 at 1244, Post-cisplatin documented in this encounter Care Teams Manager Commission Relationship Specialty Start Date End Date Amelia Gomes APRN PCP - General Family Medicine 10/17/[address] [place] [address] documented as of this encounter
--- OUTSIDE RECORDS SUMMARY | 2022-01-24 03:57 | XMS_ITS | Encounter Summary ---
:1935 Author Organization [facility] [place] [address] Care Team Providers Name Role Phone Amelia Gomes APRN Primary Care Provider [phone] Encounter Details Date Type Department Care Team Description 12/11/2021 Telephone Radiation Oncology a t [facility] Jose C Arita [address] [place], [place] [phone] Social History Tobacco Use [...] this encounter Miscellaneous Notes Telephone Encounter - Jose C Arita - 12/11/2021 9:27 AM EDTSummary: Audiogram referral Audiogram referral walked over to [facility] audiology on 12/11. Asked that they schedule pt chinedu and to let us know when pt has been scheduled. documented in this encounter Plan of Treatment Upcoming Encounters Date Type Specialty Care Team Description 01/26/2022 Infusion Hematology and Oncology 01/26/2022 Office Visit Hematology and Oncology Mirta Sy MD [facility] DR ONCOLOGY DEPT. [place], [place] [address] (Wo rk) 01/28/2022 Office Visit Radiation Oncology Chilango Michel MD [facility] RADIATION ONCOLO [place], [place] [address] (Wo rk) 01/29/2022 Infusion Hematology and Oncology 02/05/2022 Infusion Hematology and Oncology documented as of this encounter Visit Diagnoses Not on filedocumented in this encounter Care Teams Alternative Energy Technician Relationship Specialty Start Date End Date Amelia Gomes APRN PCP - General Family Medicine 10/17/[address] [place] [address] documented as of this encounter
--- OUTSIDE RECORDS SUMMARY | 2022-01-24 03:58 | XMS_ITS | Encounter Summary ---
:1935 Author Organization [facility] [place] [address] Care Team Providers Name Role Phone Amelia Gomes Sarina CARLOS Primary Care Provider [phone] Reason for Referral Consultation (Routine) - Closed Specialty Diagnoses / Procedures Referred By Contact Refer red To Contact Radiation Oncology Diagnoses Tonsil cancer Marito Michel MD [facility] Rad Onc Office Procedures Simulation for Radiation Therapy Planning [facility] [place] [address] [place] [address] Phone: Fax: Referral ID Status Reason Start Date Expiration Date Visits V isits Requested Authorized [id number] Closed Consult, 11/18/2021 11/18/2022 1 1 Test & Treat Encounter Details Date Type Department Care Team Description 11/18/2021 Orders Only Radiation Oncology a t [facility] Marito Michel MD Tonsil cancer [facility] [address] RADIATION ONCOLOGY [phone] [place], [place] [address] (Wo rk) Social History Tobacco [...] Visit Hematology and Oncology Mirta Sy MD [facility] ONCOLOGY DEPT. [place], [place] [address] (Wo rk) 01/28/2022 Office Visit Radiation Oncology Chilango Michel MD [facility] RADIATION ONCOLO [place], [place] [address] (Wo alondra) 01/29/2022 Infusion Hematology and Oncology 02/05/2022 Infusion Hematology and Oncology Scheduled Orders Name Type Priority Associated Diagnoses Order S chedule Simulation for Radiation Procedures Routine Tonsil cancer Or dered: 11/18/2021 Therapy Planning documented as of this encounter Visit Diagnoses Diagnosis Tonsil cancer Malignant neoplasm of tonsil documented in this encounter Care Teams Coach Mechanic Relationship Specialty Start Date End Date Amelia Gomes APRN PCP - General Family Medicine 10/17/[address] [place] [address] documented as of this encounter
--- OUTSIDE RECORDS SUMMARY | 2022-01-24 03:58 | XMS_ITS | Encounter Summary ---
:1935 Author Organization [facility] [place] [address] Care Team Providers Name Role Phone MireyaZaidAmeliamat Branch APRN Primary Care Provider [phone] Reason for Visit Consultation (Routine) - Closed Specialty Diagnoses / Procedures Referred By Contact Refer red To Contact Radiation Oncology Diagnoses Tonsil cancer [facility] Rad Onc Treatment [address] [place] [address] [address] [place], [place] OTOLARYNGOLOGY DEPT. [address] [place] [address] Referral ID Status Reason Start Date Expiration Date Visits V isits Requested Authorized [id number] Closed Consult, 10/09/2021 10/09/2022 1 1 Test & Treat Encounter Details Date Type Department Care Team Description 10/15/2021 Office Visit Radiation Oncology at Marito Michel MD Tonsil cancer [facility] [address] [place] [address] RADIATION ONCOLOGY [place], [place] [phone] Social History Tobacco Use Types Packs/Day Years [...] Sign Reading Time Taken Comments Blood Pressure 134/72 10/15/2021 10:40 AM EDT Pulse 83 10/15/2021 10:40 AM EDT Temperature - - Respiratory Rate 18 10/15/2021 10:40 AM EDT Oxygen Saturation 96% 10/15/2021 10:40 AM EDT Inhaled Oxygen Concentration - - Weight - - Height - - Body Mass Index - - documented in this encounter Progress Notes Letha Lopez RN - 10/15/2021 10:30 AM EDT RADIATION ONCOLOGY NURSING INITIAL NURSING ASSESSMENT IDENTIFICATION: Pino Wong is a 86 y.o. year-old male with newly diagnosed tonsil cancer PRESENTING SYMPTOMS/CHIEF COMPLAINT: Presented with irritation in throat since past winter. Denies actual pain. REVIEW OF SYSTEMS: Review of Systems - Oncology Please see ROS filed by patient. IN THE PAST 12 MONTHS HAVE YOU: Fallen more than one time? no Injured yourself as result of the fall? no Experienced difficulty with walking/problems with balance? yes Do you use any assistive devices? no Any history of collagen vascular diseases: No Any Implanted Devices/Hardware: Bilateral knees If yes please put alert in ARIA patient summary Prior Radiotherapy: no Prior Chemotherapy: no Prior Hormone Therapy: no LEARNING ASSESSMENT REVIEWED: yes ADVANCED DIRECTIVE: PAIN ASSESSMENT: 0 out of 10 *eD-H Adult PCS Flow Sheet if 4 or above SOCIAL ASSESSMENT: See EDH social assessment information entered. Support Systems: lives with Angelina Barriers to treatment: none identified. Has broken upper crown which Dr. Gerda Gonzalez Stu, [facility] is comfortable with. Referrals/Interventions: MANAGER INCOME TAX per routine RADIATION SPECIFIC TEACHING: [facility] Radiation Therapy and You Site specific teaching : Head and Neck teaching to be done by nursing on day of simulation Other: PLAN: Per Dr. Michel Answers for HPI/ROS submitted by the patient on 10/15/2021 Distress: 7 Marito Michel MD - 10/15/2021 10:30 AM EDT Images from the original note were not included. Radiation Oncology New Patient Visit PATIENT NAME: Pino Wong DATE OF : 1935 HISTORY OF PRESENT ILLNESS Pino Wong is a 86 y.o. 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 In April of 2021 he noticed pain associated withhis posterior right oropharynx. It persisted, and he saw his PCP who referred him to Dr. Pena. A biopsy was performed by Dr. Pena on 08/28/21, which returned as a p16 (+) squamous cell carcinoma. He was referred to Dr. Cedillo, who he saw on 10/09/21. Staging & Therapy Tonsil, right biopsies 08/28/21: Non-keratinizing squamous cell carcinoma, p16 positive CT HN w/ contrast 10/09/21: 2.5 cm [...] 0.8 cm right lateral retropharyngeal lymph node. PET-CT 10/09/21: 1. FDG avid soft tissue fullness in the right lateral pharyngeal wall, consistent with primary tonsillar malignancy. 2. FDG avid adenopathy in the right levels 2 and 5 region, and subcentimeter FDG avid lymph node in the right upper retropharyngeal space, consistent with cris metastases. 3. No distant sites of metastasis. Other Pertinent Issues: None Currently, he has the following symptoms: Symptom Description Ongoing Intervention Oropharyngeal Pain Mild pain in the oropharynx, no pain medications required. Pain present at baseline, not worse with activity or eating. Dysphagia Denies Xerostomia / Dysgeusia Denies Otalgia Denies Dental Issues / Trismus Saw dentist recently, Panorex performed. No interventions were recommended, but he is hoping to have a tooth extracted that is bothering him. Nutritional Intake Eating Normal Diet PEG Not present Neck Pain Denies Neck Fibrosis / Lymphedema Denies HN sensory Changes Denies HN strength Changes Denies Voice Changes Denies Social Issues Travels 15 minutes to [facility] Tobacco / EtOH Never smoker Total Pack Years NA Other No Issues ECOG PS: 0 Grade ECOG PERFORMANCE STATUS 0 Fully active, able to carry on all pre-disease performance without restriction 1 Restricted in physically strenuous activity but ambulatory and able to carry out work of a light or sedentary nature 2 Ambulatory and capable of all selfcare but unable to carry out any work activities; up and about > 50% of waking hours 3 Capable of only limited selfcare; confined to bed or chair more than 50% of waking hours 4 Completely disabled; cannot carry on any selfcare; totally confined to bed or chair EXAM There were no vitals filed for this visit. Physical Exam Constitutional: Appearance: He is well-developed. HENT: Mouth/Throat: Comments: Visual inspection of OC and OP revealed an endophytic mass involving the right tonsil extending along the soft palate to the uvula, up to the right RMT but not involving it, and some induration along the right BOT. Otherwise no evidence of suspicious masses or lesions. Moisture good. Pt with teeth in good repair. Eyes: Pupils: Pupils are equal, round, and reactive to light. Neck: Comments: Palpation reveals an ~ 2 cm node in level IV, and and ~ 2 cm node in level II, both mobile. Otherwise no adenopathy in cervical, SCLV, ICLV cris basins. Cardiovascular: Rate and Rhythm: Normal rate. Pulmonary: Effort: Pulmonary effort is normal. Breath sounds: Normal breath sounds. Skin: Findings: No erythema. Neurological: Mental Status: He is alert and oriented to person, place, and time. Cranial Nerves: No cranial nerve deficit. Psychiatric: Behavior: Behavior normal. PROCEDURE Deferred HISTORY Allergies as of 10/15/2021 ??? (No Known Allergies) No past medical history on file. Past Surgical History: Procedure Laterality Date ??? CATARACT REMOVAL ??? KNEE SURGERY ??? TURP N/A 05/2021 Social History Socioeconomic History ??? Marital status: Spouse name: Not on file ??? Number of children: Not on file ??? Years of education: Not on file ??? Highest education level: Not on file Occupational History ??? Not on file Tobacco Use ??? Smoking status: Never Smoker ??? Smokeless tobacco: Never Used Vaping Use ??? Vaping Use: Never used Substance and Sexual Activity ??? Alcohol use: Not Currently ??? Drug use: Never ??? Sexual activity: Not on file Other Topics Concern ??? Not on file Social History Narrative ??? Not on file Social Determinants of Health Financial Resource Strain: Low Risk ??? Difficulty of Paying Living Expenses: Not hard at all Food Insecurity: Unknown ??? Worried About Running Out of Food in the Last Year: Never true ??? Ran Out of Food in the Last Year: Not on file Transportation Needs: No Transportation Needs ??? Lack of Transportation (Medical): No ??? Lack of Transportation (Non-Medical): No Physical Activity: Not on file Housing Stability: Low Risk ??? Unable to Pay for Housing in the Last Year: No ??? Number of Places Lived in the Last Year: 2 ??? Unstable Housing in the Last Year: No No family history on file. ROS: I reviewed and agree with the nursing review of systems accompanying this encounter. The remainder of the comprehensive review of systems was negative with the exception of the pertinent positivesand negatives noted above. MEDICATIONS Current Outpatient Medications on File Prior to Visit Medication Sig Dispense Refill ??? acetaminophen (TYLENOL) 650 mg Tablet Sustained Release Take 650 mg by mouth every 8 hours as needed for Pain. Do not exceed 6 tabs in 24 hours ??? diclofenac (Voltaren) 1 % Gel Apply topically. ??? SAW PALMETTO ORAL Take by mouth. ??? KRILL OIL ORAL Take by mouth. ??? fluticasone propionate (FLONASE) 50 mcg/actuation [place], Suspension by Each Nare route daily. ??? simvastatin (ZOCOR) 80 mg tablet 80MG, PO, Every other day ??? allopurinol (ZYLOPRIM) 300 mg tablet 300mg, PO, QAM ??? [DISCONTINUED] AMOXICILLIN ORAL Take 250 mg by mouth as needed (Before dental procedures only). No current facility-administered medications on file prior to visit. IMAGING I have personally reviewed the imaging reports and images referenced in the oncologic hx and agree with the assessment as stated. Further pertinent imaging data below LABORATORY VALUES CONTRAINDICATIONS TO RADIOTHERAPY NO YES: Date, site, dose (women only) X Prior Radiotherapy X Collagen-Vascular dz X ASSESSMENT /PLAN HN CANCER Staging CT HN PET-CT Biopsy Further Staging EUA w/ DL ; Pathologic evaluation of the primary MRI HN w/ contrast Therapy Discussion Pino Wong has been referred to discuss radiotherapy in his care. He has a cT2 squamous cellcarcinoma of the right tonsil, but is not felt to be a good candidate for TORS due to proximity to the carotid. 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 We discussed the relative risks and benefits of radiotherapy and surgical therapy, noting the recommendation that definitive chemoradiotherapy is preferred due to surgical toxicity concerns. He would benefit from an EUA with mapping biopsies,and potentially an MRI to facilitate treatment planning. [facility], and was handed the consent to peruse. he has not been discussed at [facility] tumor board and we will do so. We discussed the rationale and logistics (including simulation, planning, and treatment) of definitive chemoradiotherapy. We discussed the risks of therapy, including but not limited to short term sequelae (fatigue, skin erythema, mucositis, dysphagia, ageusia, xerostomia, weight loss) and custodial sequelae (tissue fibrosis, lymphedema, custodial dysphagia potentially requiring a permanent feeding tube, xerostomia, osteoradionecrosis, increased risk of dental caries, esophageal stricture, and the possibility of significant damage to soft tissue, bone or skin requiring surgical or medical intervention). Mr. Wong expressed an understanding of these risks. The patient had a number of questions regarding optimal therapy and potential side effects. These questions were answered to his satisfaction Concurrent chemotherapy recommendations: to discuss with medical oncology Therapy Decision Await staging biopsies, dental clearance, TB discussion Supportive Care Prophylactic feeding tube: TBD Referral to Exhibitions Curator / FLAME CUTTING MACHINE OPERATOR HELPER Dental Issues: dental clearance required OTHER ISSUES None documented in this encounter Plan of Treatment Upcoming Encounters Date Type Specialty Care Team Description 01/26/2022 Infusion Hematology and Oncology 01/26/2022 Office Visit Hematology and Oncology Mirta Sy MD [facility] ONCOLOGY DEPT. [place], [place] [address] ([facility]) 01/28/2022 Office Visit Radiation Oncology Chilango Michel MD [facility] [place], [place] [address] (Wo rk) 01/29/2022 Infusion Hematology and Oncology 02/05/2022 Infusion Hematology and Oncology documented as of this encounter Visit Diagnoses Diagnosis Tonsil cancer Malignant neoplasm of tonsil documented in this encounter Care Teams Numerical Tool Programmer Relationship Specialty Start Date End Date Amelia Gomes APRN PCP - General Family Medicine 10/17/[address] [place] [address] documented as of this encounter
--- OUTSIDE RECORDS SUMMARY | 2022-01-24 03:58 | XMS_ITS | Encounter Summary ---
:1935 Author Organization [facility] [place] [address] Care Team Providers Name Role Phone Amelia Gomes Sarina CARLOS Primary Care Provider [phone] Reason for Referral Consultation (Routine) - Closed Specialty Diagnoses / Procedures Referred By Contact Refer red To Contact Hematology and Oncology Diagnoses Tonsil cancer Jarett Cedillo, [facility] Hem Onc [address] [place], [place] OTOLARYNGOLOGY DEPT. [address] [place] [address] Referral ID Status Reason Start Date Expiration Date Visits V isits Requested Authorized [id number] Closed Consult, 10/09/2021 10/09/2022 1 1 Test & Treat Consultation (Routine) - Closed Specialty Diagnoses / Procedures Referred By Contact Refer red To Contact Radiation Oncology Diagnoses Tonsil cancer Jarett Cedillo [facility] [address] [place] [address] [address] [place], [place] OTOLARYNGOLOGY DEPT. [address] [place] [address] Referral ID Status Reason Start Date Expiration Date Visits V isits Requested Authorized [id number] Closed Consult, 10/09/2021 10/09/2022 1 1 Test & Treat Reason for Visit Consultation (Routine) - Closed Specialty Diagnoses / Procedures Referred By Contact Refer red To Contact Otolaryngology Diagnoses Squamous cell carcinoma of right tonsil Orlando Pena MD Paydarfar, Joseph A, [address] [place] [address] [address] [place], [place] [address] [facility] OTOLARYNGOLOGY DEPT. [place], [place] [address] Phone: Fax: Referral ID Status Reason Start Date Expiration Date Visits V isits Requested Authorized [id number] Closed Consult, 09/16/2021 09/16/2022 1 1 Test & Treat Encounter Details Date Type Department Care Team Description 10/09/2021 Office Visit Otolaryngology at [facility] Jarett Cedillo, Tonsil cancer [facility] [place] [address] [facility] [phone] OTOLARYNGOLOGY Osorio EPT. [place], [place] [address] (Wo rk) Social History Tobacco Use Types Packs/Day Years Used Date Never Smoker Smokeless Tobacco: Never Used Financial Resource Strain Answer Date Recorded How [...] Sign Reading Time Taken Comments Blood Pressure 146/86 10/09/2021 2:07 PM EDT Pulse 81 10/09/2021 2:07 PM EDT Temperature - - Respiratory Rate - - Oxygen Saturation 94% 10/09/2021 2:07 PM EDT Inhaled Oxygen Concentration - - Weight 90.7 kg (200 lb) 10/09/2021 2:07 PM EDT Height 177.8 cm (5' 10) 10/09/2021 2:07 PM EDT Body Mass Index 28.7 10/09/2021 2:07 PM EDT documented in this encounter Progress Notes Jarett Cedillo MD - 10/09/2021 2:20 PM EDT [facility]K TUMOR CLINIC NEW PATIENT CONSULTATION I was asked to see Pino Wong in consultation by Orlando Pena for right tonsil cancer. History was obtained through review of the relevant records, discussion with referring physician and/or patient interview. This is a 86 y.o. male who presents with a newly diagnosed tonsil cancer. He reports that since the winter he has noted an irritation in his throat. Slightly painful but no significant dysphagia or odynophagia. No otalgia. Was seen by Dr. Pena and has office biopsy, reviewed at [facility]: DIAGNOSIS CONSULTATION CASE Outside slide(s) labeled [id number], collection date 08/28/2021. Tonsil, right, biopsies: Non-keratinizing squamous cell carcinoma, p16 positive (see Discussion) The patient is a Non-smoker. Minimal alcohol. 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 PROBLEM LIST Patient Active Problem List Diagnosis Code ??? AK (actinic keratosis) L57.0 ??? SK (seborrheic keratosis) L82.1 ??? History of nonmelanoma skin cancer Z85.828 ??? Actinic keratosis L57.0 ??? Filiform wart B07.9 PAST MEDICAL HISTORY No past medical history on file. SOCIAL HISTORY Social History Tobacco Use ??? Smoking status: Never Smoker ??? Smokeless tobacco: Never Used Substance Use Topics ??? Alcohol use: Not on file MEDICATIONS Current Outpatient Medications on File Prior to Visit Medication Sig Dispense Refill ??? SAW PALMETTO ORAL Take by mouth. ??? KRILL OIL ORAL Take by mouth. ??? fluticasone propionate (FLONASE) 50 mcg/actuation [place], Suspension by Each Nare route daily. ??? simvastatin (ZOCOR) 80 mg tablet 80MG, PO, Every other day ??? allopurinol (ZYLOPRIM) 300 mg tablet 300mg, PO, QAM ??? AMOXICILLIN ORAL Take 250 mg by mouth as needed (Before dental procedures only). No current facility-administered medications on file prior to visit. ALLERGIES No Known Allergies ROS Pertinent positive findings discussed above. No other findings on review of constitutional visual, cardiovascular, respiratory, gastrointestinal, genitourinary, musculoskeletal, dermatologic, neurological, psychiatric, endocrine, hematologic or immunologic systems. PHYSICAL EXAMINATION Vitals: Blood pressure 146/86, pulse 81, height 177.8 cm (5' 10), weight 90.7 kg (200 lb), SpO2 94 %. General: No acute distress Face: Normocephalic and atraumatic Mouth: Lips and gingiva pink, moist, without lesions. Gums/dentition healthy. Tongue and floor of mouth soft without lesions or masses. Hard palate without lesions. Pharynx: Endophytic tumor of the right tonsil extending submucosally along the soft palate. Not involving themandible. FOM is soft. Left tonsil grossly normal. Salivary: Normal exam of the parotid and submandibular glands. Neck: Level II adenopathy right side, 2 cm, firm level IV adenopathy right side, 1.5 cm Resp: Breathing comfortably without stridor or retractions. Normal respirations. CV: Normal carotid pulses. MSK: Normal neck range of motion, no trismus. Skin: Skin survey of the head and neck is without concerning lesion. Neurologic: Cranial nerves II-XII intact and symmetric. AxOx3, responds appropriately to questions. Psych: Normal mood and affect. PROCEDURES Procedure Flexible Fiberoptic Laryngoscopy Indication Oropharyngeal cancer Description Informed verbal consent obtained and time out performed. A flexible laryngoscope was used to evaluate bilateral nasal cavity, nasopharynx, oropharynx, hypopharynx and larynx. The examination was recorded on the [employer] Unit and uploaded to the [facility]. Findings Nasal cavity normal Nasopharynx normal Oropharynx Prominent lingual tonsillar tissue bilaterally. Fullness right tonsillar fossa. Larynx normal Hypopharynx normal REVIEW OF IMAGES/STUDIES CT neck reviewed. Tumor of the tonsillar fossa in close proximity to the ICA. Multiple nodes in the right neck. PET/CT with multiple nodes on the right, possible left level II nodes ASSESSMENT/RECOMMENDATIONS Metastatic tonsil cancer Given endophytic nature of mass and involvement of the soft palate as well as proximity to ICA, would not be a good surgical candidate. Will arrange for consults with medonc and radonc. Given the bilateral disease, will arrange staging endoscopy and biopsies. Advised him to see dentist chinedu and if extractions required, may be able to arrange at the same time. I appreciate the opportunity to be involved in Mr. Wong's care. JARETT CEDILLO MD 10/09/2021 documented in this encounter Plan of Treatment Upcoming Encounters Date Type Specialty Care Team Description 01/26/2022 Infusion Hematology and Oncology 01/26/2022 Office Visit Hematology and Oncology iMrta Sy MD [facility] DR ONCOLOGY DEPT. [place], [place] [address] (Tomy cantu) 01/28/2022 Office Visit Radiation Oncology Chialngo Michel MD [facility] RADIATION ONCSHANTEL [place], [place] [address] (Tomy cantu) 01/29/2022 Infusion Hematology and Oncology 02/05/2022 Infusion Hematology and Oncology Scheduled Referrals Name Type Priority Associated Diagnoses Order S chedule Referral to Outpatient Referral Routine Tonsil cancer Ordered : Radiation Oncology 2 Referral to Head Outpatient Referral Routine Tonsil cancer Ord ered: and Neck Oncology 10/09/2021 documented as of this encounter Visit Diagnoses Diagnosis Tonsil cancer Malignant neoplasm of tonsil documented in this encounter Care Teams Bridge Expert Relationship Specialty Start Date End Date Amelia Gomes, [employer] OFF[employer] PCP - General Family Medicine 10/17/[address] [place] [address] [address] [place] [address] documented as of this encounter
--- OUTSIDE RECORDS SUMMARY | 2022-01-24 03:58 | XMS_ITS | Encounter Summary ---
:1935 Author Organization [facility] [place] [address] Care Team Providers Name Role Phone MateoZaid simpsonAmeliamat Branch APRN Primary Care Provider [phone] Reason for Referral Diagnostic Test (Routine) - Closed Specialty Diagnoses / Procedures Referred By Contact Refer red To Contact Radiology Diagnoses Tonsil cancer Steve Kellogg PA [facility] Rad Ct Scan Procedures CT Neck Soft Tissue w Contrast (Generic) [facility] [place] [address] [place] [address] Referral ID Status Reason Start Date Expiration Date Visits V isits Requested Authorized [id number] Closed Specialty 09/17/2021 03/19/2023 1 1 Service Requested Reason for Visit Diagnostic Test (Routine) - Closed Specialty Diagnoses / Procedures Referred By Contact Refer red To Contact Radiology Diagnoses Tonsil cancer Steve Kellogg PA [facility] Rad Ct Scan Procedures CT Neck Soft Tissue w Contrast (Generic) [facility] Department Dr Sorto [facility] [place] [address] [place] [address] Referral ID Status Reason Start Date Expiration Date Visits V isits Requested Authorized [id number] Closed Specialty 09/17/2021 03/19/2023 1 1 Service Requested Encounter Details Date Type Department Care Team Description 10/09/[address] Scan [place] [facility] [place] Jarett Tonsil cancer [facility] [place] [address] OTOLARYNG[address]Y DEPT. [place], [place] [address] (Wo rk) Social History Tobacco [...] Sig Dispensed Refills Start Date End Date SAW PALMETTO ORAL Take by mouth. 0 KRILL OIL ORAL Take by mouth. 0 fluticasone propionate by Each Nare route 0 07/02 (FLONASE) 50 daily. mcg/actuation [place], Suspension simvastatin (ZOCOR) 80 80MG, PO, Every other 0 mg tablet day allopurinol (ZYLOPRIM) 300mg, PO, QAM 0 0 300 mg tablet aspirin EC (Ecotrin Low Daily 0 01/09/2013 0 12/08/2021 Strength) 81 mg Tablet, Delayed Release (E.C.) AMOXICILLIN ORAL Take 250 mg by mouth 0 10/15/2021 as needed (Before dental procedures only). documented as of this encounter Plan of Treatment Upcoming Encounters Date Type Specialty Care Team Description 01/26/2022 Infusion Hematology and Oncology 01/26/2022 Office Visit Hematology and Oncology Mirta Sy MD [facility] DR ONCOLOGY DEPT. [place], [place] [address] (Wo rk) 01/28/2022 Office Visit Radiation Oncology Chilango Michel MD [facility] RADIATION ONCOLO GY [place], [place] [address] (Wo rk) 01/29/2022 Infusion Hematology and Oncology 02/05/2022 Infusion Hematology and Oncology documented as of this encounter Procedures Procedure Name Priority Date/Time Associated Diagnosis Comme nts CT NECK SOFT TISSUE Routine 10/09/2021 11:31 AM Tonsil cancer Results for this W CONTRAST EDT procedure are i n the results section. documented in this encounter Results CT Neck Soft Tissue w Contrast (Generic) (10/09/2021 11:31 AM EDT) Anatomical Region Laterality Modality Neck, Head Computed Tomography Specimen (Source) Anatomical Collection Method Collection Time Re ceived Time Location / / Volume Laterality 10/09/2021 11:53 AM EDT Impressions 10/10/2021 9:26 AM EDT 2.5 cm right tonsillar and tongue base mass with extension to the uvula. Right-sided pathologic adenopathy as kiersten cribed above. Thank you for letting us participate in the care of this patient. ??If you are a health care provider and have any questi ons regarding this report, please contact the number below. ??For patients who have questions please contact the health body care manager that requested your imaging first. ? Electronically signed by: Alexandre Mitchell MD, [facility] ([phone]), at 10/10/2021 9:26 AM Narrative 10/10/2021 9:26 AM EDT EXAMINATION: CT NECK SOFT TISSUE W CONTRAST (GENERIC) CLINICAL HISTORY: Head/neck cancer, stag ing Tier 2, new cancer pt. Right tonsil canc er with possible extension to base of tongue. Please assess for surgical plann ing, including involvement of vessels/neurovascular bundle of tongue, soft palate. TECHNIQUE: CT neck performed after the intravenous administration of contrast. Administered 110.0 ml of OMNIPAQUE 350.00 mg/ml. COMPARISON: None FINDINGS: There is a 2.5 cm irregular poorly veto nated enhancing mass centered in the right palatine tonsil. It extends medial ly to involve the uvula and anteriorly it appears to involve the base of tongue . Posterolaterally and extends up to the prestyloid parapharyngeal space but does not involve the common or internal carotid arteries. There is no visible in volvement of the soft palate. The mass approaches but does not appear to involve the neurovascular bundle of the tongue. MRI is preferred for evaluat ion of this feature. There is pathologic adenopathy in the ri ght neck with lymph nodes as follows: 2.1 cm level 2A, 1.2 cm level 5,, 2.2 cm level 5, and 1.2 cm level 5 0.8 cm right lateral retropharyngeal lym ph node. Vascular structures are of normal appear ance with the exception of calcification of the carotid bifurcations. The salivar y glands show no abnormality. No thyroid mass is present. The imaged portions of the brain and orbits are of normal appearance. Procedure Note Alexandre Mitchell MD - 10/10/2021Format ting of this note might be different from the original. EXAMINATION: CT NECK SOFT TISSUE W CONTR AST (GENERIC) CLINICAL HISTORY: Head/neck cancer, stag ing Tier 2, new cancer pt. Right tonsil canc er with possible extension to base of tongue. Please assess for surgical plann ing, including involvement of vessels/neurovascular bundle of tongue, soft palate. TECHNIQUE: CT neck performed after the intravenous administration of contrast. Administered 110.0 ml of OMNIPAQUE 350.00 mg/ml. COMPARISON: None FINDINGS: There is a 2.5 cm irregular poorly veto nated enhancing mass centered in the right palatine tonsil. It extends medial ly to involve the uvula and anteriorly it appears to involve the base of tongue . Posterolaterally and extends up to the prestyloid parapharyngeal space but does not involve the common or internal carotid arteries. There is no visible in volvement of the soft palate. The mass approaches but does not appear to involve the neurovascular bundle of the tongue. MRI is preferred for evaluat ion of this feature. There is pathologic adenopathy in the ri ght neck with lymph nodes as follows: 2.1 cm level 2A, 1.2 cm level 5,, 2.2 cm level 5, and 1.2 cm level 5 0.8 cm right lateral retropharyngeal lym ph node. Vascular structures are of normal appear ance with the exception of calcification of the carotid bifurcations. The salivar y glands show no abnormality. No thyroid mass is present. The imaged portions of the brain and orbits are of normal appearance. IMPRESSION 2.5 cm right tonsillar and tongue base m ass with extension to the uvula. Right-sided pathologic adenopathy as kiersten cribed above. Thank you for letting us participate in the care of this patient. If you are a health care provider and have any questi ons regarding this report, please contact the number below. For patients w ho have questions please contact the health body care manager that requested your imaging first. Electronically signed by: Alexandre Mitchell MD, [facility] ([phone]), at 10/10/2021 9:26 AM Jarett Cedillo MD IMG CT ORDERABLES documented in this encounter Visit Diagnoses Diagnosis Tonsil cancer Malignant neoplasm of tonsil documented in this encounter Administered Medications Inactive Administered Medications - up to 3 most recent administrations Medication Order MAR Action Action Date Dose Rate Site iohexoL (Omnipaque) (350 mg/mL) Given 10/09/2021 11:32 AM EDT 11 0 mLs solution 0-200 mL 0-200 mL, Intravenous, ONCE PRN, 1 dose, Starting on Mickie 10/09/21 at 1132, Until Mickie 10/09/21 at 1132, Per Protocol, Warning Vesicant/Irritant Medication , Radiology Contrast, Routine documented in this encounter Care Teams Licensed Veterinary Technician Relationship Specialty Start Date End Date Amelia Gomes APRN PCP - General Family Medicine 10/17/[address] [place] [address] [address] [place] [address] documented as of this encounter
--- OUTSIDE RECORDS SUMMARY | 2022-01-24 03:58 | XMS_ITS | Encounter Summary ---
:1935 Author Organization [facility] [place] [address] Care Team Providers Name Role Phone MateoHayde simpsonleonarda Branch APRN Primary Care Provider [phone] Encounter Details Date Type Department Care Team Description 11/11/2021 Surgery Main Operating Room Jarett Cedillo, LARYNGOSCOPY, [facility] MICROSCOPE, WITH [facility] (WRU 3.55) [facility] [address] [place] [address] [place] [address] [phone] (Wo rk) Social History Tobacco Use Types [...] place to sleep or slept in a fci (including now)? Sex Assigned at Date Recorded Not on file documented as of this encounter Last Filed Vital Signs Vital Sign Reading Time Taken Comments Blood Pressure 133/75 11/11/2021 12:45 PM EDT Pulse 71 11/11/2021 12:41 PM EDT Temperature 36.7 ??C (98.1 ??F) 11/11/2021 12:40 PM EDT Respiratory Rate 16 11/11/2021 12:45 PM EDT Oxygen Saturation 98% 11/11/2021 12:45 PM EDT Inhaled Oxygen Concentration - - Weight 90.9 kg (200 lb 8 oz) 11/11/2021 9:29 AM EDT Height 177.8 cm (5' 10) 11/11/2021 9:29 AM EDT Body Mass Index 28.77 11/11/2021 9:29 AM EDT documented in this encounter Discharge Instructions Discharge InstructionsGrace Tello RN - 11/11/2021 12:59 PM EDT Next dose of ibuprofen (motrin) can be taken at 9pm. Patient InstructionsJarett Cedillo MD - 10/17/2021 3:56 PM EDT Post laryngoscopy instructions: Diet: Soft bland diet for 24 hours then advance as tolerated Activity: Light activity for 24 hours then advance as tolerated For pain: Tylenol, ibuprofen over the counter. You may also use sore throat lozenges or sprays as needed. Ice packs to the upper neck also help. Other instructions: You may cough up bloody mucous for the next 1-2 days, this is normal. Follow up with Drs. Sy and Marilu for further treatment planning and recommendations. If you have any questions or concerns: - Call [phone] during normal offices hours (8 AM - 5 PM during the week) - Call [phone] and ask for the ENT resident regional otr company driver after hours (nights and weekends) documented in this encounter Medications at Time of Discharge Medication Sig Dispensed Refills Start Date End Date acetaminophen (TYLENOL) Take 650 mg by 0 650 mg Tablet Sustained mouth every 8 hours Release as needed for Pain. Do not exceed 6 tabs in 24 hours diclofenac (Voltaren) 1 % Apply topically. 0 Gel SAW PALMETTO ORAL Take by mouth. 0 KRILL OIL ORAL Take by mouth. 0 fluticasone propionate by Each Nare route 0 07/02 (FLONASE) 50 mcg/actuation daily. [place], Suspension simvastatin (ZOCOR) 80 mg 80MG, PO, Every 0 04/03 tablet other day allopurinol (ZYLOPRIM) 300 300mg, PO, QAM 0 04/03 mg tablet aspirin EC (Ecotrin Low Daily 0 01/09/2013 0 12/08/2021 Strength) 81 mg Tablet, Delayed Release (E.C.) documented as of this encounter Progress Notes Grace Tello RN - 11/11/2021 2:22 PM EDT Patient alert and oriented, vital signs stable. Reviewed discharge instructions; patient and Angelina verbalized understanding. Copy of instruction sheet with contact numbers for questions/concerns with Angelina. Pain assessment documented. Patient escorted out of department via wheelchair with LISSETTE Robert. Nona Julian RN - 10/17/2021 3:56 PM EDT [facility] Radiation Oncology [address] [place] [id number] Date: To whom it may concern: Pino Wong is a new patient of our radiation oncologist, Dr Michel. Prior to any radiation therapy and the treatment planning session, the patient will need a dental evaluation. Any dental care needed will need to be complete before radiation, including fillings and extractions. The patient willalso need to be fitted for fluoride trays for after radiation therapy. The patient will need writtenpermission from your dental office to proceed with radiation. If you can expedite this process as soon as possible, it will be much appreciated. Sincerely, documented in this encounter H&P Notes Jarett Cedillo MD - 11/11/2021 10:31 AM EDT Patient Name: Pino Wong Patient Age: 86 y.o. Birthdate: 1935 Admit date: 11/11/2021 Attending Physician: Jarett Cedillo MD The patient's history and physical exam have been reviewed and completed. There has been no intervalchange from that of the pre-operative history and physical exam done within the last 30 days. DL with biopsy FNA level 2 node, left side Dejan Alas MD - 11/11/2021 10:08 AM EDT The patient's history and physical exam have been reviewed and completed. There has been no intervalchange. CV: regular rate and rhythm without peripheral edema Lungs:non labored breathing Oral exam: fractured #4 (patient with history of tenderness) on lingual cusp Plan is to extract #[address] Cedillo Dparq/consent obtained. Risks reviewed including damage to adjacent structures such as teeth, bone, sinus, nerve, possibility of infection, bleeding, pain, swelling, and need for further surgery.. Dejan Alas MD, DMD documented in this encounter Miscellaneous Notes Op Note - Jarett Cedillo MD - 11/11/2021 11:46 AM EDT Images from the original note were not included. 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 Microlaryngoscopy with biopsy 2. Biopsy of left tonsil 3. Ultrasound-guided fine-needle aspirate level 2A lymph node, left neck Surgeon: Jarett Cedillo MD Anesthesia: General EBL: 15 mL Indications: This 86-year-old patient presents with a biopsy-proven HPV positive right sided tonsil cancer. During his metastatic work-up including PET/CT imaging he was noted to have level 2A uptake in the left neck and questionable irregularity on scope exam as well as PET/CT in the left base of tongue and tonsil region. He is brought to the operating room for additional biopsies in the oropharynx.He had an ultrasound-guided fine-needle aspirate of level 2A lymph node which is shows atypia but isnot an diagnostic and therefore we are repeating the ultrasound-guided fine-needle aspirate today aswell. Findings: Firm primary in the right tonsillar fossa extending up onto the soft palate and down to but not involving the base of tongue on the right. The left tonsil is boggy but no obvious tumor is identified. There is some additional fullness in the left base of tongue which appears to be lymphoid hyperplasia grossly. Level 2A lymph nodes not identified on ultrasound approximate 1.5 cm with successful fine-needle aspirate. Procedure description: After informed consent was obtained patient was placed under general anesthesia and timeout was called. Dr. Alas was present to perform a dental extraction please refer to his operative note for full details. Once this was completed we then proceeded with the laryngoscopy. Rachel operating laryngoscope and a 0 degree telescope were used for careful examination of the oropharynx, hypopharynx, larynx. Biopsies were taken of the right base of tongue as well as the left base of tongue and the specimens were submitted to pathology for permanent analysis. Hemostasis was maintained with pledgets soaked in adrenaline. The cardiac's retractor was then placed after removal of the Jeff to expose the tonsillar region and placed in suspension. The right tonsillar tumor was evaluated further on direct inspection and palpation and then we turned our attention to the left tonsil where biopsies were taken deep into the substance of the tonsil using a cup forceps multiple pieces were taken and submitted to pathology for permanent analysis. Pledgets soaked in adrenaline were placed for hemostasis. Next we turned our attention to the ultrasound-guided fine-needle aspirate. The ultrasound probe wasused to localize the level 2A lymph node which had an irregular hilum and then using a 20-gauge needle 10 cc syringe fine-needle aspirate of the lymph node was performed and a second needle aspirate using a 10 cc syringe and a 22-gauge needle was then performed and we confirmed needle placement on ultrasound. The aspirate was submitted inside a preservative for cytology. The patient's pharynx was reevaluated for any evidence of bleeding there was no further bleeding and hemostasis had been achieved and the patient was turned back to anesthesia for extubation with no complications. Attestation: Case Date: 11/11/2021 I performed this procedure without the involvement of a resident. JARETT CEDILLO MD 11/12/2021 Op Note - Dejan Alas MD - 11/11/2021 11:46 AM EDT [facility] Operative Note Patient Name: Pino Wong : [id number] MR#: [id number] Case Date: 11/11/2021 Surgeon: Surgeon(s) and Role: Panel 1: * Jarett Cedillo MD - Primary Panel 2: * Dejan Alas MD - Primary Preoperative diagnosis: oropharyngeal cancer Postoperative diagnosis: oropharyngeal cancer Procedure(s) (LRB): LARYNGOSCOPY, MICROSCOPE, WITH BIOPSY (WRVU 3.55) (N/A) BIOPSY OF TONSIL (WRVU 7.69) (Left) FINE NEEDLE ASPIRATION BIOPSY, INC US GUIDANCE; FIRST LESION (Left) Dr. Alas's part SURGICAL EXTRACTIONS REQUIRING ELEVATION OF MUCOPERIOSTEAL FLAP AND REMOVAL OF BONE OR SECTION OF TOOTH (WRVU 1.09) #4 Anesthesia: General Estimated Blood Loss: * No values recorded between 11/11/2021 11:46 AM and 11/11/2021 12:23 PM * Specimens removed during surgery: None Drains: * No LDAs found * Surgical Closure: Primary Closure - skin incision is completely closed without any wires, silvia, drains or other devices Disposition: awakened from anesthesia, extubated and taken to the recovery room in a stable condition, having suffered no apparent untoward event. Condition: doing well without problems (Please see the Surgical Encounter Summary for any Implant and Specimen details pertinent to this patient.) HPI/Surgical Indications: See previous preop History and Physical for full details. Procedure Description: The patient was brought to the operating room and placed under general anesthesia via nasoendotracheal tube. The Patient was prepped and draped in the standard fashion for postdoctoral scholar. The oral cavity was suctioned and an oral pharyngeal pack was placed. approx 5cc of 1% Xylocaine with 1-200,000 epinephrine was used to infiltrate the surgical sites. SURGICAL EXTRACTION of teeth # 4 were performed. It required incision of surrounding gingiva and reflection of a mucoperiosteum flap together with removal of bone slightly on buccal aspect to facilitate its removal. 3-0 chromic suture used. There was no evidence of injury to adjacent teeth, nerves, sinuses, or fracture. A bite block was used to minimize pressure on the TMJoint. Hemostasis obtained. The oral cavity was then carefully suctioned and the oral pharyngeal pack was removed. Case was turned over to Dr. Cedillo. Surgical Infection Prevention Bundle Used? N/A Attestation: Case Date: 11/11/2021 I performed this procedure without the involvement of a resident. Dejan Alas MD 11/11/2021 documented in this encounter Plan of Treatment Upcoming Encounters Date Type Specialty Care Team Description 01/26/2022 Infusion Hematology and Oncology 01/26/2022 Office Visit Hematology and Oncology Mirta Sy MD [facility] DR ONCOLOGY DEPT. 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 Location: [facility]; SD41; A FAN Final Report KENN The signing pathologist has (i) examined the relevant preparation(s) for the [facility] specimen(s) and (ii) rendered or confirmed the diagnosis(es) . HOSPITAL LABOR[facility]ORY . ? No n-Chamber Magistrate Final DIAGNOSIS Suspicious for Malignancy Electronically signed by: ?Jocelyn MUNOZ, Gal Ac Verified: ??11/14/2021 14:26 ??Pathologist Performed at: ??-[facility] Dept. of Pathology, [facility], [place] DISCUSSION Lymph node, left neck level [...] MD PATHOLOGY/CYTOLOGY ORDERABLE S Performing Organization Address City/[facility]/[place]IP [place] [address] Cytopathology Non-Gynecological (11/11/2021 12:22 PM EDT) Specimen Anatomical Collection Method Collection Time Receive d Time (Source) Location / / Volume Laterality AP Specimen 11/11/2021 12:22 11/11/2021 PM EDT 12:22 PM EDT Narrative [facility] OR - 11/11/2021 12:22 PM EDT Specimen requisition ordered. ??Separate Pathology report to follow Jarett Cedillo MD PATHOLOGY/CYTOLOGY ORDERABLE S Performing Organization Address City/[facility]/[place] [address] Specimen to Pathology (11/11/2021 12:10 PM EDT) Specimen Anatomical Collection Method Collection Time Receive d Time (Source) Location / / Volume Laterality AP Specimen 11/11/2021 12:10 11/11/2021 PM EDT 12:10 PM EDT Narrative [facility] OR - 11/11/2021 12:10 PM EDT Specimen requisition ordered. ??Separate Pathology report to follow Jarett Cedillo MD PATHOLOGY/CYTOLOGY ORDERABLE S Performing Organization Address City/[facility]/[place] [address] Specimen to Pathology (11/11/2021 11:53 AM EDT) Specimen Anatomical Collection Method Collection Time Receive d Time (Source) Location / / Volume Laterality AP Specimen 11/11/2021 11:53 11/11/2021 AM EDT 11:53 AM EDT Narrative [facility] OR - 11/11/2021 11:53 AM EDT Specimen requisition ordered. ??Separate Pathology report to follow Jarett Cedillo MD PATHOLOGY/CYTOLOGY ORDERABLE S Performing Organization Address City/[facility]/[place] [address] Specimen to Pathology (11/11/2021 11:50 AM EDT) Specimen Anatomical Collection Method Collection Time Receive d Time (Source) Location / / Volume Laterality AP Specimen 11/11/2021 11:50 11/11/2021 AM EDT 11:50 AM EDT Narrative [facility] - 11/11/2021 11:50 AM EDT Specimen requisition ordered. ??Separate Pathology report to follow Jarett Cedillo MD PATHOLOGY/CYTOLOGY ORDERABLE S Performing Organization Address City/State/ZIP [place] [address] Surgical Pathology Report (11/11/2021 11:49 AM EDT) Component Value Ref Test Analysis Performed At [facility] gist Range Method Time Signature Surgical [id number] ? Location: [facility]; [facility]; A [facility] Report The signing pathologist has (i) examined the relevant preparation(s) for the [facility] specimen(s) and (ii) rendered or confirmed the [...] space invasion. (see Discussion) Electronically signed by: ?Ana Hall MD Verified: ??11/19/2021 11:01 ??Pathologist Performed at: ??-[facility] Dept. of Pathology, [facility], [place] DISCUSSION Step levels were examined. SPECIMEN(S) [...] Organization Address City/State/[place] [address] documented in this encounter Visit Diagnoses Diagnosis Tonsil cancer Malignant neoplasm of tonsil Tonsil cancer Malignant neoplasm of tonsil documented in this encounter Administered Medications Inactive Administered Medications - up to 3 most recent administrations Medication Order MAR Action Action Date Dose Rate Site EPINEPHrine (Adrenalin) Given 11/11/2021 11:54 AM 30 mLs 19- Surgical Site nasal solution EDT ONCE PRN, Starting on Wed11/11/21 at 1154, Until Wed11/11/21 at 1623, Intra-Operative (Intra-Procedure), Routine ketorolac (Toradol) (15 mg/mL) injection 15 Given 11/11/2021 12:55 PM EDT 15 mg mg 15 mg, Intravenous, EVERY 8 HOURS PRN, Starting on Wed11/11/21 at 1247, Until Wed11/11/21 at 1623, Pain, Routine lidocaine-EPINEPHrine (2% - Given 11/11/2021 11:58 AM 3 mLs 19- Surgical Site 1:100,000) injection cartridge EDT ONCE PRN, Starting on Wed11/11/21 at 1158, Until Wed11/11/21 at 1623, Intra-Operative (Intra-Procedure), Routine oxyCODONE (Roxicodone) (1 mg/mL) oral liquid 5 Given 0 11/11/2021 1:13 PM EDT 5 mg mg 5 mg, Oral, EVERY 4 HOURS PRN, Starting on Wed11/11/21 at 1248, Until Wed11/11/21 at 1623, Pain, Routine documented in this encounter Active and Recently Administered Medications Times are shown in EDT. PRN Medication Order 11/09/2021 11/10/2021 11/11/2021 EPINEPHrine (Adrenalin) nasal solution (CANCELED) 1154 (Given - Provider: Jarett Cedillo MD) ONCE PRN, Starting on Wed11/11/21 at 115 4, Until Wed11/11/21 at 1623, Intra- Operative (Intra-Procedure), Routine ketorolac (Toradol) (15 mg/mL) injection 15 mg 1255 (Given - Provider: Grace Tello RN) 15 mg, Intravenous, EVERY 8 HOURS PRN, S tarting on Wed11/11/21 at 1247, Until Wed11/11/21 at 1623, Pain, Routine lidocaine-EPINEPHrine (2% - 1:100,000) injection cartridge (CANC ELED) 1158 (Given - Provider: Dejan Alas MD) ONCE PRN, Starting on Wed11/11/21 at 115 8, Until Wed11/11/21 at 1623, Intra- Operative (Intra-Procedure), Routine oxyCODONE (Roxicodone) (1 mg/mL) oral liquid 5 mg 1313 (Given - Provider: Grace Tello RN) 5 mg, Oral, EVERY 4 HOURS PRN, Starting on Wed11/11/21 at 1248, Until Wed11/11/21 at 1623, Pain, Routine documented in this encounter Care Teams Talent Sourcing Specialist Relationship Specialty Start Date End Date Amelia Gomes APRN PCP - General Family Medicine 10/17/[address] [place] [address] documented as of this encounter
--- OUTSIDE RECORDS SUMMARY | 2022-01-24 03:58 | XMS_ITS | Encounter Summary ---
:1935 Author Organization [facility] [place] [address] Care Team Providers Name Role Phone MireyaZaidAmeliamat Branch APRN Primary Care Provider Reason for Visit Diagnostic Test (Routine) - Closed Specialty Diagnoses / Procedures Referred By Contact Refer red To Contact Radiology Diagnoses Tonsil cancer Carlos Lezama MD [facility] Interventionl Rad Procedures IR Suture Release [facility] [place] [address] [place] [address] Referral ID Status Reason Start Date Expiration Date Visits V isits Requested Authorized [id number] Closed Specialty 11/13/2021 05/16/2023 1 1 Service Requested Encounter Details Date Type Department Care Team Description 11/20/2021 Hospital Encounter Radiology at [facility] Kale Sy, Canceled [facility] ([facility]CANCELL[facility] BY [facility] MEDICAL [facility]) [facility] [id number] ONCOLOGY DEPT. [phone] [place] [address] Social History Tobacco Use Types Packs/Day Years [...] place to sleep or slept in a fpc (including now)? Sex Assigned at Date Recorded [...] route 0 07/02 (FLONASE) 50 mcg/actuation daily. [place], Suspension simvastatin (ZOCOR) 80 mg 80MG, PO, Every 0 04/03 tablet other day allopurinol (ZYLOPRIM) 300 300mg, PO, QAM 0 04/03 mg tablet aspirin EC (Ecotrin Low Daily 0 01/09/2013 0 12/08/2021 Strength) 81 mg Tablet, Delayed Release (E.C.) documented as of this encounter Plan of Treatment Upcoming Encounters Date Type Specialty Care Team Description 01/26/2022 Infusion Hematology and Oncology 01/26/2022 Office Visit Hematology and Oncology Mirta Sy MD [facility] ER DR ONCOLOGY DEPT. [place], [place] [address] (Wo rk) 01/28/2022 Office Visit Radiation Oncology Chilango Michel MD [facility] ER RADIATION ONCOLO GY [place], [place] [address] (Wo rk) 01/29/2022 Infusion Hematology and Oncology 02/05/2022 Infusion Hematology and Oncology documented as of this encounter Visit Diagnoses Not on filedocumented in this encounter Care Teams Market News Reporter Relationship Specialty Start Date End Date Amelia Gomes APRN PCP - General Family Medicine 10/17/[address] [place] [address] documented as of this encounter
--- OUTSIDE RECORDS SUMMARY | 2022-01-24 03:58 | XMS_ITS | Encounter Summary ---
:1935 Author Organization [facility] [place] [address] Care Team Providers Name Role Phone Amelia Gomes Sarina CARLOS Primary Care Provider [phone] Encounter Details Date Type Department Care Team Description 11/05/2021 Laboratory Appointment Lab [address] [place] [address] Social History Tobacco Use Types Packs/Day Years [...] place to sleep or slept in a residential (including now)? Sex Assigned at Date Recorded Not on file documented as of this encounter Plan of Treatment Upcoming Encounters Date Type Specialty Care Team Description 01/26/2022 Infusion Hematology and Oncology 01/26/2022 Office Visit Hematology and Oncology Mirta Sy MD [facility] DR ONCOLOGY DEPT. [place], [place] [address] (Wo rk) 01/28/2022 Office Visit Radiation Oncology Chilango Michel MD [facility] RADIATION ONCOLO GY [place], [place] [address] (Wo rk) 01/29/2022 Infusion Hematology and Oncology 02/05/2022 Infusion Hematology and Oncology documented as of this encounter Visit Diagnoses Not on filedocumented in this encounter Care Teams Enforcement Officer Relationship Specialty Start Date End Date Amelia Gomes APRN PCP - General Family Medicine 10/17/[address] [place] [address] documented as of this encounter
--- OUTSIDE RECORDS SUMMARY | 2022-01-24 03:58 | XMS_ITS | Encounter Summary ---
:1935 Author Organization [facility] [place] [address] Care Team Providers Name Role Phone Amelia Gomes APRN Primary Care Provider Encounter Details Date Type Department Care Team Description 11/24/2021 Office Visit Hematology/Oncology at Kale Sy MD Tonsil cancer [address] ONCOLOGY DEPT. [place], [place] [id number] [phone] Social History Tobacco Use Types Packs/Day Years Used Date Never Smoker Smokeless Tobacco: Never Used Alcohol Use Standard Drinks/Week Comments Not Currently 0 (1 standard drink = 0.6 oz pure alcoho l) Financial Resource Strain Answer Date Recorded How hard is it for you to pay for the very basics like Not h givoana at all 10/30/2021 food, housing, medical care, [...] documented as of this encounter Progress Notes Kale Sy MD - 11/24/2021 2:30 PM EDT Images from the original note were not included. Hematology/Oncology Clinic [facility] Patient Active Problem List Diagnosis ??? 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 History of kidney stones Multiple urate stones Chronic allopurinol ??? S/P TKR (total knee replacement), bilateral ??? Hypercholesterolemia ??? Actinic keratosis ??? Filiform wart ??? AK (actinic keratosis) ??? SK (seborrheic keratosis) ??? History of nonmelanoma skin cancer BCC- left helix Unscheduled medical oncology checkup. Since I first saw him, his staging has been upgraded. We had suspicions about a left-sided mid neck node; this was biopsied twice by fine-needle aspirate and both were suspicious but inconclusive. He also was taken to the operating room for endoscopy by Dr. Cedillo on 11/11, and although the left tonsil was not clinically very suspicious the pathology of the left tonsil biopsy showed a small focus of nonkeratinizing squamous cell carcinoma. His swallowing remains quite good with no significant symptoms outside of mild odynophagia, increased postbiopsy. The right neck adenopathy has clinically regressed a bit without treatment. He had a Mediport and G-tube placed. The G-tube feels a bit uncomfortable at times. The Mediport hasirritation from the Tegaderm placed over it. Otherwise he feels well, KPS 100. Physical exam: He looks well, in good spirits Oral exam shows the same erythematous slightly raised right upper pole tonsil tumor, about 1.5 cm indiameter. Abuts the soft palate. The tongue is mobile. The left tonsil is a bit full but otherwise appears normal. The neck exam indeed shows less apparent adenopathy, perhaps a 1 cm noted mid zone 2. I am not able to palpate the left zone 2 node seen on imaging. Lungs are clear Cardiac exam normal Right chest Mediport is benign, outside of a spotty blistering skin rash around the edges of the previously used adhesive. Abdomen is benign without obvious hepatosplenomegaly or masses. The G-tube site is clean; the bumperwas a bit tight and I loosened it by about 5 mm. There is also some irritation under previous tape sites. Extremities normal without clubbing cyanosis or edema Neurologic exam is normal including cranial nerves Reflexes are trace bilaterally. Cranial nerve functions grossly normal Labs: Most recent blood work from 10/09 limited to creatinine of 0.87 giving an estimated GFR of 85 mL/min. Pathology from the 11/11/2021 endoscopy and left tonsil biopsy: DIAGNOSIS A - RIGHT base of tongue, biopsy: Squamous mucosa and minor salivary gland tissue, negative for malignancy B - LEFT base of tongue, biopsy: Tonsillary type tissue, negative for malignancy C - LEFT tonsil, biopsy: Microscopic focus of non-keratinizing squamous cell carcinoma with lymphovascular ??space invasion. (see Discussion) Impression: 86-year-old functionally well never smoker with bilateral p16 positive tonsil cancer, a larger tumor on the right, with bilateral adenopathy. Given the greater right-sided disease burden I think it is most appropriate to consider this as bilateral lymph node involvement from the right tonsil tumor, with an incidental very early left tonsil tumor. This is more of a semantic than a functional distinction, as both sides of the neck and both tonsil primaries need to be treated. Plan: 1. I loosened the G-tube bumper slightly. He went over the care of his G-tube [address]ry Page [address] today, and we gave him flexor track devices for securing the tube. We talked about the use of an [id number] abdominal binder to protect the tube when he is working, as he still very active. 2. Recommended that nursing staff use hypoallergenic Tegaderm when accessing his Mediport. 3. In terms of treatment, he appears to be eligible for N RG HN 009 clinical trial, with standard radiotherapy and randomization between weekly low-dose versus every 3-week standard dose cisplatin chemotherapy. We reviewed the rationale for this protocol, the voluntary nature of enrollment, the potential toxicity of this chemotherapy, and the clinical equipoise at which we stand with these 2 schedules of chemotherapy treatment. He is interested and wishes to proceed with trial enrollment. I did not have an informed consent available for him to sign that I will get this to him in the next few days. 4. Dr. Michel is preparing his radiation plan and we will be prepared to start his chemotherapy thesame time. Kale Sy MD, FACP career coordinator Hematology/Oncology Section [facility]/[address] [address] Voice recognition software used for this note; please excuse retail interior designer errors. I personally reviewed past medical, surgical, family medical histories, reviewed current medications, vital signs, labs, and performed full review of systems. These are documented below the narrative for clarity and succinctness. No outpatient medications have been marked as taking for the 11/24/21 encounter (Office Visit) with Kale Sy MD. Review of Systems: Review of systems is negative for other [employer], bone, pulmonary, cardiac, GI, , extremity, neurologic, endocrine, skin, constitutional, emotional, or functional problems. Vitals Flowsheet Row Ancillary Appointment from 11/20/2021 in Radiation Oncology at [facility] Weight 89.3 kg (196 lb 12.8 oz) [With shoes] Temp 36.5 ??C (97.7 ??F) Temp src Tympanic Heart Rate 81 BP 138/83 SpO2 95 % There is no height or weight on file to calculate BSA. Wt Readings from Last 3 Encounters: 11/24/21 87.6 kg (193 lb 3.2 oz) 11/20/21 89.3 kg (196 lb 12.8 oz) 11/11/21 90.9 kg (200 lb 8 oz) No results found for this or any previous visit (from the past 72 hour(s)). ++++++++++++++++++++++++++++++++++++++++++++++++++++ documented in this encounter Plan of Treatment Upcoming Encounters Date Type Specialty Care Team Description 01/26/2022 Infusion Hematology and Oncology 01/26/2022 Office Visit Hematology and Oncology Mirta Sy MD [facility] DR ONCOLOGY DEPT. [place], [place] [address] (Wo rk) 01/28/2022 Office Visit Radiation Oncology Chilango Michel MD [facility] RADIATION ONCOLO [place], [place] [address] (Wo rk) 01/29/2022 Infusion Hematology and Oncology 02/05/2022 Infusion Hematology and Oncology documented as of this encounter Visit Diagnoses Diagnosis Tonsil cancer Malignant neoplasm of tonsil documented in this encounter Care Teams Motion Designer Relationship Specialty Start Date End Date Amelia Gomes APRN PCP - General Family Medicine 10/17/[address] [place] [address] documented as of this encounter
--- OUTSIDE RECORDS SUMMARY | 2022-01-24 03:58 | XMS_ITS | Encounter Summary ---
:1935 Author Organization [facility] [place] [address] Care Team Providers Name Role Phone MateoHayde simpsonleonarda Branch APRN Primary Care Provider [phone] Encounter Details Date Type Department Care Team Description 12/02/2021 Notes [facility] [address] [phone] Social History Tobacco Use [...] encounter Progress Notes Kaley Lee RN - 12/02/2021 5:40 PM EDT [place], [place] Documentation of Informed Consent to Participate in Clinical Trial Study Number:HN009 Description:Comparing high-dose cisplatin every three weeks to low-dose cisplatin weekly when combined with radiation for patients with advanced head and neck cancer. Patient was seen in private exam room , accompanied by his ,who is beyond child bearing potential, and was offered the opportunity to participate in the study HN009.He states he saw Dr Sy 11/24/21 and they discussed this study. He received a copy of it in the mail( a research nurse from [facility] mailed it to him) and he read it over and he signed it and brought it to our clinic last week. ( see media section dated 11/26/21) I explained that the informed consent process involves reviewing the consent and allowing opportunity for questions with a professional from research department and requires the individual to also singthe consent which have scheduled today. He states he is feeling well today , good energy level. KPS 90 % , ECOG 0 The protocol was reviewed with patient including description of study purpose, potential risks, sideeffects and uncertain benefits, voluntary nature of participation, and requirements of participation. Financial considerations were discussed per protocol. Specifically, there is no financial compensation provided for participation. Discussed confidentiality of patient???s private health information as specified in consent form. Patient was informed that he/she may discontinue study involvement at any time; informed that declining to participate or discontinuing study treatment will not compromise his/her access to treatment options or care at this institution. He was given the written consent form to read and review. Patient states he was given adequate time to review all information, and to ask questions and review concerns, all of which were answered to his/her satisfaction. Patient verbalized understanding of this protocol and what is meant by randomization described in the trial. He consented for treatment on study HN009 Consent protocol version form date 12/30/20 (IRB approval date 07.06.2021) was signed and dated by patient and this author. Written informed consent was obtained prior to any study procedures being conducted. A copy of the signed consent form was given to patient. Original signed IC form was sent to GRACE Mathews via [employer] mail and also Emailed to her. Patient was provided a copy of this author business card and instructed to call clinic or provider with any questions or concerns regarding the research study. Patient verbalized understanding of these instructions. documented in this encounter Plan of Treatment Upcoming Encounters Date Type Specialty Care Team Description 01/26/2022 Infusion Hematology and Oncology 01/26/2022 Office Visit Hematology and Oncology Mirta Sy MD [facility] DR ONCOLOGY DEPT. [place], [place] [address] (Wo rk) 01/28/2022 Office Visit Radiation Oncology Chilango Michel MD [facility] RADIATION ONCOLO [place], [place] [address] (Wo rk) 01/29/2022 Infusion Hematology and Oncology 02/05/2022 Infusion Hematology and Oncology documented as of this encounter Visit Diagnoses Not on filedocumented in this encounter Care Teams Physician Assistant Psychiatry Relationship Specialty Start Date End Date Amelia Gomes APRN PCP - General Family Medicine 10/17/[address] [place] [address] documented as of this encounter
--- OUTSIDE RECORDS SUMMARY | 2022-01-24 03:58 | XMS_ITS | Encounter Summary ---
:1935 Author Organization [facility] [place] [address] Care Team Providers Name Role Phone MateoZaid simpsonAmeliamat Branch APRN Primary Care Provider [phone] Encounter Details Date Type Department Care Team Description 11/04/2021 Telephone Hematology and Oncol simón at [facility] [place] [phone] Social History Tobacco Use Types Packs/Day [...] this encounter Miscellaneous Notes Telephone Encounter - Irina Madeleine - 11/04/2021 2:50 PM EDT [facility] spoke with Pino and his Angelina. We chatted about grants. I have sent them this letter below and included my number. Dear Pino , 11/04/2021 Just a recap of our conversation. Once you start treatment you will be eligible for two grants. They offer one time assistance. I willneed some bills to submit to them. They pay the vendor directly. [employer] can assist with $350, I can submit up to two bills. I fill out the application. This can take about 3-5 days to process. [employer] can assist with up to $800 and also offers a grocery gift card. I can submit several bills. I will also need income verification as well. Last year???s 2020 taxes 1040 forms(usually 2 pages). Please review the application for applicable bills ( bills need to have your name, account number, bills no older than 60 days, company name and billing address) and income documents. This can take up to 6 weeks to process once submitted. I have requested a $50 gas card from [facility]. Please contact me with any questions or if you need assistance. I have enclosed several forms. Please fill out and return. Thanks, Madeleine Arevalo documented in this encounter Plan of Treatment Upcoming Encounters Date Type Specialty Care Team Description 01/26/2022 Infusion Hematology and Oncology 01/26/2022 Office Visit Hematology and Oncology Mirta Sy MD [facility] ONCOLOGY DEPT. [place], [place] [address] (Wo rk) 01/28/2022 Office Visit Radiation Oncology Chilango Michel MD [facility] RADIATION [place], [place] [address] (Wo rk) 01/29/2022 Infusion Hematology and Oncology 02/05/2022 Infusion Hematology and Oncology documented as of this encounter Visit Diagnoses Not on filedocumented in this encounter Care Teams General Activities Therapist Relationship Specialty Start Date End Date Amelia Gomes APRN PCP - General Family Medicine 10/17/[address] [place] [address] documented as of this encounter
--- OUTSIDE RECORDS SUMMARY | 2022-01-24 03:58 | XMS_ITS | Encounter Summary ---
:1935 Author Organization [facility] [place] [address] Care Team Providers Name Role Phone Amelia Gomes Sarina CARLOS Primary Care Provider [phone] Encounter Details Date Type Department Care Team Description 12/03/2021 Orders Only Radiation Oncology a t [facility] Marito Michel MD Tonsil cancer [facility] [place] [phone] RADIATION ONCOLOGY [phone] [place], [place] [address] (Wo rk) Social History Tobacco [...] Hematology and Oncology Mirta Sy MD [facility] ONCOLOGY DEPT. [place], [place] [address] (Wo rk) 01/28/2022 Office Visit Radiation Oncology Chilango Michel MD [facility] RADIATION ONCOLO [place], [place] [address] (Wo rk) 01/29/2022 Infusion Hematology and Oncology 02/05/2022 Infusion Hematology and Oncology Scheduled Orders Name Type Priority Associated Diagnoses Order S chedule CBC (with Diff) Lab Routine Tonsil cancer Expected: 0 12/04/2021 (Approximate), Expires: 2022 Comprehensive metabolic Lab Routine Tonsil cancer Exp ected: 12/04/2021 panel (non-fasting) (Approxi mate), Expires: 2022 documented as of this encounter Visit Diagnoses Diagnosis Tonsil cancer Malignant neoplasm of tonsil documented in this encounter Care Teams Heel Dipper Relationship Specialty Start Date End Date Amelia Gomes APRN PCP - General Family Medicine 10/17/[address] [place] [address] documented as of this encounter
--- OUTSIDE RECORDS SUMMARY | 2022-01-24 03:58 | XMS_ITS | Encounter Summary ---
:1935 Author Organization [facility] [place] [address] Care Team Providers Name Role Phone MateoZaid simpsonAmeliamat Branch APRN Primary Care Provider [phone] Reason for Referral Diagnostic Test (Routine) - Closed Specialty Diagnoses / Procedures Referred By Contact Refer red To Contact Radiology Diagnoses Tonsil cancer Steve Kellogg PA [facility] Rad Nuclear Med Procedures NM PET CT Standard Plus Head and Neck [facility] [place] [address] [place] [address] Referral ID Status Reason Start Date Expiration Date Visits V isits Requested Authorized [id number] Closed Specialty 09/17/2021 03/19/2023 2 2 Service Requested Reason for Visit Diagnostic Test (Routine) - Closed Specialty Diagnoses / Procedures Referred By Contact Refer red To Contact Radiology Diagnoses Tonsil cancer Steve Kellogg PA [facility] Rad Nuclear Med Procedures NM PET CT Standard Plus Head and Neck [facility] [place] [address] [place] [address] Referral ID Status Reason Start Date Expiration Date Visits V isits Requested Authorized [id number] Closed Specialty 09/17/2021 03/19/2023 2 2 Service Requested Encounter Details Date Type Department Care Team Description 10/09/2021 Hospital Encounter Nuclear Medicine at [facility] Tonsil cancer Mariam Lantigua MD [facility] [address] [facility] [place] [address] OTOLARYNGOLOGY [phone] DEPT. [place], [place] [address] (Wo rk) Social History Tobacco [...] Sig Dispensed Refills Start Date End Date fluticasone propionate by Each Nare route 0 07/02 (FLONASE) 50 daily. mcg/actuation [place], Suspension simvastatin (ZOCOR) 80 80MG, PO, Every [...] MD [facility] DR ONCOLOGY DEPT. [place], [place] [address] (Wo rk) 01/28/2022 Office Visit Radiation Oncology Chilango Michel MD [facility] RADIATION ONCOLO [place], [place] [address] (Wo rk) 01/29/2022 Infusion Hematology and Oncology 02/05/2022 Infusion Hematology and Oncology documented as of this encounter Procedures Procedure Name Priority Date/Time Associated Diagnosis Comme nts NM PET CT STANDARD Routine 10/09/2021 9:36 AM Tonsil cancer Re sults for this PLUS HEAD AND NECK EDT procedure are in the results section. POCT GLUCOSE Routine 10/09/2021 8:12 AM Results f or this EDT procedure are i n the results section. documented in this encounter Results NM PET CT Standard Plus Head and Neck (10/09/2021 9:36 AM EDT) Anatomical Region Laterality Modality Positron Emission To mography (PET) Specimen (Source) Anatomical Location Collection Method / Collectio n Time Received Time / Laterality Volume Addenda Addendum by Jeffery Herman MD on 10/30 9:31 AM EDT --------ADDENDUM #1-------- On re-review, there is a 10 mm moderatel y FDG avid lymph node in the left level 2 region (axial image 87) which is indet erminate and may represent a benign reactive node, however, contralateral no cleve metastasis cannot be excluded. Thank you for letting us participate in the care of this patient. ??If you are a health care provider and have any questi ons regarding this report, please contact the number below. ??For patients who have questions please contact the health healthcare management consultant that requested your imaging first. ? Electronically signed by: Jeffery Herman MD, [facility] ([phone]), at 10/30/2021 9:26 AM --------ORIGINAL REPORT -------- EXAMINATION: NM PET CT STANDARD PLUS HEA D AND NECK CLINICAL HISTORY: Head/neck cancer, stag ing New right tonsil cancer. ??Please assess for extent of disease, metastases. 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 The noncontrast CT was used for anatomic localization and photon att enuation correction of the PET scan. Blood glucose level: 104 (mg/dL) FDG dose: 13.9 mCi COMPARISON: Same day CT neck 10/09/2021 FINDINGS: HEAD/NECK: FDG avid soft tissue fullness in the rig ht lateral pharyngeal wall. Subcentimeter FDG avid lymph node in the right upper retropharyngeal space (axial image 72). FDG avid adenopathy in the right levels 2 and 5 region (axial images 82 through 109). CHEST: Normal activity in all soft tissue regio ns. Bilateral posterior scarring. Coronary artery calcifications. ABDOMEN/PELVIS: Normal activity in all soft tissue regio ns. Nonobstructing LEFT renal calculus. SKELETON/EXTREMITIES: No suspicious osseous lesions. FDG avid degenerative change with small focal superior endplate collapse of L2. Focal FDG avid degenerative disc disease at the T4/T5 level (axial image 133). IMPRESSION: 1. ??FDG avid soft tissue fullness in th e right lateral pharyngeal wall, consistent with primary tonsillar malign jos. 2. ??FDG avid adenopathy in the right le vels 2 and 5 region, and subcentimeter FDG avid lymph node in the right upper r etropharyngeal space, consistent with cris metastases. 3. ??No distant sites of metastasis. I have personally reviewed the image(s) and the resident's interpretation and agree with the findings, Mary Jo Wilkerson at 10/10/2021 10:57 AM Thank you for letting us participate in the care of this patient. ??If you are a health care provider and have any questi ons regarding this report, please contact the number below. ??For patients who have questions please contact the health healthcare management consultant that requested your imaging first. ? Electronically signed by: Jeffery Herman MD, [facility] ([phone]), at 10/10/2021 10:57 AM Impressions 10/10/2021 10:57 AM EDT 1. ??FDG avid soft tissue fullness in the right lateral pharyngeal wall, consistent with primary tonsillar malign jos. 2. ??FDG avid adenopathy in the right le vels 2 and 5 region, and subcentimeter FDG avid lymph node in the right upper r etropharyngeal space, consistent with cris metastases. 3. ??No distant sites of metastasis. I have personally reviewed the image(s) and the resident's interpretation and agree with the findings, Mary Jo Wilkerson at 10/10/2021 10:57 AM Thank you for letting us participate in the care of this patient. ??If you are a health care provider and have any questi ons regarding this report, please contact the number below. ??For patients who have questions please contact the health healthcare management consultant that requested your imaging first. ? Electronically signed by: Jeffery Herman MD, [facility] ([phone]), at 10/10/2021 10:57 AM Narrative 10/10/2021 10:57 AM EDT EXAMINATION: NM PET CT STANDARD PLUS HEAD AND NECK CLINICAL HISTORY: Head/neck cancer, stag ing New right tonsil cancer. ??Please assess for extent of disease, metastases. 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 The noncontrast CT was used for anatomic localization and photon att enuation correction of the PET scan. Blood glucose level: 104 (mg/dL) FDG dose: 13.9 mCi COMPARISON: Same day CT neck 10/09/2021 FINDINGS: HEAD/NECK: FDG avid soft tissue fullness in the rig ht lateral pharyngeal wall. Subcentimeter FDG avid lymph node in the right upper retropharyngeal space (axial image 72). FDG avid adenopathy in the right levels 2 and 5 region (axial images 82 through 109). CHEST: Normal activity in all soft tissue regio ns. Bilateral posterior scarring. Coronary artery calcifications. ABDOMEN/PELVIS: Normal activity in all soft tissue regio ns. Nonobstructing LEFT renal calculus. SKELETON/EXTREMITIES: No suspicious osseous lesions. FDG avid degenerative change with small focal superior endplate collapse of L2. Focal FDG avid degenerative disc disease at the T4/T5 level (axial image 133). Procedure Note Jeffery Herman MD - 10/10/2021Formatti ng of this note might be different from the original. EXAMINATION: NM PET CT STANDARD PLUS HEA D AND NECK CLINICAL HISTORY: Head/neck cancer, stag ing New right tonsil cancer. Please assess f or extent of disease, metastases. 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 The noncontrast CT was used for anatomic localization and photon att enuation correction of the PET scan. Blood glucose level: 104 (mg/dL) FDG dose: 13.9 mCi COMPARISON: Same day CT neck 10/09/2021 FINDINGS: HEAD/NECK: FDG avid soft tissue fullness in the rig ht lateral pharyngeal wall. Subcentimeter FDG avid lymph node in the right upper retropharyngeal space (axial image 72). FDG avid adenopathy in the right levels 2 and 5 region (axial images 82 through 109). CHEST: Normal activity in all soft tissue regio ns. Bilateral posterior scarring. Coronary artery calcifications. ABDOMEN/PELVIS: Normal activity in all soft tissue regio ns. Nonobstructing LEFT renal calculus. SKELETON/EXTREMITIES: No suspicious osseous lesions. FDG avid degenerative change with small focal superior endplate collapse of L2. Focal FDG avid degenerative disc disease at the T4/T5 level (axial image 133). IMPRESSION 1. FDG avid soft tissue fullness in the right lateral pharyngeal wall, consistent with primary tonsillar malign jos. 2. FDG avid adenopathy in the right leve ls 2 and 5 region, and subcentimeter FDG avid lymph node in the right upper r etropharyngeal space, consistent with cris metastases. 3. No distant sites of metastasis. I have personally reviewed the image(s) and the resident's interpretation and agree with the findings, Mary Jo Wilkerson at 10/10/2021 10:57 AM Thank you for letting us participate in the care of this patient. If you are a health care provider and have any questi ons regarding this report, please contact the number below. For patients w ho have questions please contact the health healthcare management consultant that requested your imaging first. Jarett Cedillo MD IMG PET ORDERABLES POCT Glucose (10/09/2021 8:12 AM EDT) athologist Signature POC Glucose 104 65 - 199 [facility] mg/dL [facility] Comment: Supplemental ranges: <140 mg/dL before meals <180 mg/dL all other times of the day Specimen Anatomical Collection Method Collection Time Receive d Time (Source) Location / / Volume Laterality Blood 10/09/2021 8:12 AM 8:12 EDT AM EDT Jarett Cedillo MD POINT OF CARE TEST ORDERABLE S Performing Organization Address City/State/[place] [address] documented in this encounter Visit Diagnoses Diagnosis Tonsil cancer Malignant neoplasm of tonsil documented in this encounter Administered Medications Inactive Administered Medications - up to 3 most recent administrations Medication Order MAR Action Action Date Dose Rate Site fludeoxyglucose (F-18) FDG Given 10/09/2021 8:17 AM 13.9 mCi Right Arm injection 0-20 mCi EDT 0-20 mCi, Intravenous, ONCE PRN, 1 dose, Starting on Mickie 10/09/21 at 0822, Until Mickie 10/09/21 at 0817, Per Protocol, Radiology Contrast, Routine documented in this encounter Care Teams Towel Sewer Relationship Specialty Start Date End Date Amelia Gomes APRN PCP - General Family Medicine 10/17/[address] [place] [address] documented as of this encounter
--- OUTSIDE RECORDS SUMMARY | 2022-01-24 03:58 | XMS_ITS | Encounter Summary ---
:1935 Author Organization [facility] [place] [address] Care Team Providers Name Role Phone Amelia Gomes Sarina CARLOS Primary Care Provider [phone] Reason for Referral Diagnostic Test (Routine) - Closed Specialty Diagnoses / Procedures Referred By Contact Refer red To Contact Radiology Diagnoses Tonsil cancer Carlos Lezama MD [facility] Interventionl Rad Procedures IR Suture Release [facility] [place] [address] [place] [address] Referral ID Status Reason Start Date Expiration Date Visits V isits Requested Authorized [id number] Closed Specialty 11/13/2021 05/16/2023 1 1 Service Requested Reason for Visit Diagnostic Test (Routine) - Closed Specialty Diagnoses / Procedures Referred By Contact Refer red To Contact Radiology Diagnoses Tonsil cancer Carlos Lezama MD [facility] Interventionl Rad Procedures IR Suture Release [facility] [place] [address] [place] [address] Referral ID Status Reason Start Date Expiration Date Visits V isits Requested Authorized [id number] Closed Specialty 11/13/2021 05/16/2023 1 1 Service Requested Encounter Details Date Type Department Care Team Description 11/20/2021 Hospital Encounter Radiology at [facility] Kale Sy MD Tonsil cancer [facility] [place] [address] ONCOLOGY DEPT. [phone] [place] [address] (Wo rk) Social History Tobacco Use [...] on file documented as of this encounter Discharge Instructions Discharge InstructionsKevin Quinones RN - 11/20/2021 1:56 PM EDT [facility] INTERVENTIONAL RADIOLOGY NURSES NOTE FOR GASTROPEXY SUTURE REMOVAL You have had your Gastropexy sutures removed from around your gastrostomy tube. This information is designed to inform you of the signs and symptoms of an infection. Wound infection may occur at any time, but it is evident more often 4-7 days after your procedure. Signs and symptoms may involve one or more the following: Temperature equal to or greater than 101 degrees Fahrenheit. Swelling and redness in or around the wound. Red streaks on your skin near the wound. Foul smelling or purulent drainage from the wound. Shaking chills. If you suspect an infection related to your procedure please contact your healthcare provider. When to call the Interventional Radiology Department: Please call with any questions or concerns. Ifit is during regular office hours, please call [phone]. If it is after regular office hours, oron weekends or holidays, please call [phone] and ask to speak to the Rotary Driller on callfor Interventional Radiology. Revised 01/12/19 documented in this encounter Medications at Time [...] route 0 07/02 (FLONASE) 50 mcg/actuation daily. [place], Suspension simvastatin (ZOCOR) 80 mg 80MG, PO, Every 0 04/03 tablet other day allopurinol (ZYLOPRIM) 300 300mg, PO, QAM 0 04/03 mg tablet aspirin EC (Ecotrin Low Daily 0 01/09/2013 0 12/08/2021 Strength) 81 mg Tablet, Delayed Release (E.C.) documented as of this encounter Progress Notes Kevin Quinones RN - 11/20/2021 1:45 PM EDT Patient returned here for suture release. Temp. 97.2F Suture released without difficulty. Skin underthe disc is mildly irritated and has scant moisture collected. Patient advised to watch for signs ofinfection detailed in the written MARC sheet, given to the patient, and explained. Patient also given demonstration of how to check the volume of the balloon, and how to maintain the volume if found to be decreasing. documented in this encounter Plan of Treatment Upcoming Encounters Date Type Specialty Care Team Description 01/26/2022 Infusion Hematology and Oncology 01/26/2022 Office Visit Hematology and Oncology Mirta Sy MD [facility] DR ONCOLOGY DEPT. [place], [place] [address] (Wo rk) 01/28/2022 Office Visit Radiation Oncology Chilango Michel MD [facility] RADIATION ONCOLO [place], [place] [address] (Wo rk) 01/29/2022 Infusion Hematology and Oncology 02/05/2022 Infusion Hematology and Oncology Scheduled Orders Name Type Priority Associated Diagnoses Order S chedule IR Suture Release Imaging Routine Tonsil cancer 1 Occurre nces starting 11/20/2021 unti l 11/20/2021 documented as of this encounter Visit Diagnoses Diagnosis Tonsil cancer Malignant neoplasm of tonsil documented in this encounter Care Teams Patient Coordinator Front Desk Relationship Specialty Start Date End Date Amelia Gomes APRN PCP - General Family Medicine 10/17/[address] [place] [address] documented as of this encounter
--- OUTSIDE RECORDS SUMMARY | 2022-01-24 03:58 | XMS_ITS | Encounter Summary ---
:1935 Author Organization [facility] [address] Care Team Providers Name Role Phone MateoZaid simpsonAmeliamat Branch APRN Primary Care Provider [phone] Reason for Referral Consultation (Emergency) - Closed Specialty Diagnoses / Procedures Referred By Contact Refer red To Contact Maxillofacial Surgery Diagnoses Extraction of tooth needed Patient is going to have radiation treatment due to Tonsil cancer soon. Eval and extract tooth #4. Radiopacity beyond the mandible, well defined on Right side. Gerda Gonzalez DDS [facility] Maxillo Surg [address] [facility] [address] [place] [phone] Fax: Referral ID Status Reason Start Date Expiration Date Visits V isits Requested Authorized [id number] Closed Consult, 10/27/2021 10/27/2022 1 1 Test & Treat Encounter Details Date Type Department Care Team Description 10/27/2021 Transcribe Orders eDH Incoming Gerda Gonzalez, Extrac tion of tooth Referrals DDS needed [phone] [facility] [address] [place], [place] [id number] Social History Tobacco Use Types Packs/Day Years [...] Visit Hematology and Oncology Mirta Sy MD [facility] ONCOLOGY DEPT. [place], [place] [address] (Wo rk) 01/28/2022 Office Visit Radiation Oncology Chilango Michel MD [facility] RADIATION [place], [place] [address] (Wo rk) 01/29/2022 Infusion Hematology and Oncology 02/05/2022 Infusion Hematology and Oncology Scheduled Referrals Name Type Priority Associated Order Schedule Diagnoses Referral to Outpatient Referral STAT Extraction of tooth O rdered: Maxillofacial Surgery needed 2021 documented as of this encounter Visit Diagnoses Diagnosis Extraction of tooth needed documented in this encounter Care Teams Can Slider Relationship Specialty Start Date End Date Amelia Gomes APRN PCP - General Family Medicine 10/17/[address] [place] [address] documented as of this encounter
--- OUTSIDE RECORDS SUMMARY | 2022-01-24 03:58 | XMS_ITS | Encounter Summary ---
:1935 Author Organization [facility] [place] [address] Care Team Providers Name Role Phone MateoZaid simpsonAmeliamat Branch APRN Primary Care Provider [phone] Reason for Visit Reason Comments Skin Cancer Examination Encounter Details Date Type Department Care Team Description 10/28/2021 Office Visit Dermatology at [facility] story of basal cell carcinoma (BCC); Eris Kirby MD Actinic keratoses; [address] [facility] Seborrheic keratoses; [place] [address] Lentigines; [phone] [facility] Multiple benign nevi [address] [place], [place] [address] Social History Tobacco Use Types Packs/Day Years [...] documented as of this encounter Progress Notes Rivka Rodríguez MD - 10/28/2021 10:45 AM EDT Images from the original note were not included. DEPARTMENT OF DERMATOLOGY Medical Dermatology Clinic Provider: RIVKA RODRÍGUEZ MD Preferred name Pino Preferred contact method for results [x]? Phone (home) []? MyD-H []? Letter Permission to leave detailed message Yes Permission to discuss care with , Angelina ?? 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 Pre-Procedure Screening Details Allergy to lidocaine, epinephrine N Blood thinners: N Pacemaker, defibrillator N History of Present Illness: Pino Ward Judith is a 86 y.o. Patient returns to clinic today for a full skin exam with the following concerns: - Patient denies any specific skin concerns today; no lesions that are new, changing or symptomatic. Last visit at Dermatology: 10/17/2020 Last visit with this provider: 10/17/2020 Medications: Reviewed in eD-H Allergies: Reviewed in eD-H Skin Examination: Full skin examination: Patient asked to undress to their comfort level. Verbalized that the provider???s preference is that the patient remove all clothing and that the provider will not examine areas patient elects to keep covered. Patient elects to keep underwear and socks on and have the following e xamined: scalp, hair, face, ears, neck, chest, axillae, abdomen, back, and upper and lower extremities. Genitalia and buttocks were not examined. Assessment/Plan A. Actinic Keratoses - Ill-defined gritty papules on the nose x1, scalp x2. - Explained premalignant potential of these lesions. - Discussed treatment with cryotherapy. Patient elects to proceed with cryotherapy today. - Instructed patient to return to clinic for re-evaluation if lesion(s) does not resolve as expectedwith this treatment. - Advised patient to return to clinic if lesion on the nose does not resolve. Procedure: Destruction of lesion(s) with cryotherapy (LN2). Location(s): As noted above. Number: 3 Discussed procedure and expectations, including risks and benefits. Verbal consent obtained. Treatedwith LN2. There were no complications; Patient tolerated the procedure well. Post-procedure expectations and wound care reviewed. B. Lentigines - Scattered light-brown, evenly pigmented, well-demarcated macules on sun-exposed areas of the trunk and extremities. - No worrisome pigmented lesions. Discussed benign nature of lesions and provided reassurance. Will continue to monitor. C. Benign Nevi - Scattered medium brown, evenly pigmented macules and papules on the trunk and extremities with reassuring pigment pattern on dermoscopy. - Discussed benign nature of lesions and provided reassurance. Will continue to monitor. D. Seborrheic Keratoses - Stuck on, waxy papules on the trunk and extremities. - Discussed benign nature of lesions and provided reassurance. No treatment necessary at this time. E. History of BCC - Well-healed scars per skin history. - No evidence of recurrence; will continue to monitor. Other: ??? N/A RTC: 1 yearf for FSE []Note routed to trade union secretary [x]Recall placed in scheduling system []Appointment scheduled at checkout Scribe attestation: Sepideh Mark and Dominique Hartmann CMA have performed the documentation for this encounter in the presence of and acting as a scribe for RIVKA RODRÍGUEZ MD. I performed the above scribed service and agree with the accuracy of the documentation in this encounter. Reviewed and signed by: RIVKA RODRÍGUEZ MD Dermatology [facility] documented in this encounter Plan of Treatment Upcoming Encounters Date Type Specialty Care Team Description 01/26/2022 Infusion Hematology and Oncology 01/26/2022 Office Visit Hematology and Oncology Mirta Sy MD [facility] DR ONCOLOGY DEPT. [place], [place] [address] (Wo rk) 01/28/2022 Office Visit Radiation Oncology Chilango Michel MD [facility] RADIATION ONCOLO GY [place], [place] [address] (Wo rk) 01/29/2022 Infusion Hematology and Oncology 02/05/2022 Infusion Hematology and Oncology documented as of this encounter Visit Diagnoses Diagnosis History of basal cell carcinoma (BCC) Actinic keratoses Actinic keratosis Seborrheic keratoses Lentigines Other dyschromia Multiple benign nevi Benign neoplasm of skin, site unspecifie d documented in this encounter Care Teams Phlebotomy Technologist Relationship Specialty Start Date End Date Amelia Gomes APRN PCP - General Family Medicine 10/17/[address] [place] [address] documented as of this encounter
--- OUTSIDE RECORDS SUMMARY | 2022-01-24 03:58 | XMS_ITS | Encounter Summary ---
:1935 [place] [address] Care Team Providers Name Role Phone Amelia Gomes TERRANCE Primary Care Provider [phone] Encounter Details Date Type Department Care Team Description 11/11/2021 Anesthesia Event Main Operating Room Anne Marie Jacob MD [facility] [place] [address] [facility] Jefe Valle [facility] [place] [address] [place] [address] Anesthesia Record Procedure Summary Procedure Name Responsible Anesthesia Start Anesthesia Stop Time Anesthesiologist Time LARYNGOSCOPYJuju Stacie G, MD 11/11/21 1115 11/11/21 12 43 MICROSCOPE, WITH BIOPSY (WRVU 3.55) (N/A Throat) Events Date Time Event Comment 11/11/2021 1101 1115 AN Verify 1115 Start 1117 An Start Data 1121 An Induction 1128 An Intubation 1128 Anesthesia Ready 1148 Break/Relief In I assumed care f or Break Relief before which we: 1. Identifie d the patient 2. Identified the responsible provider(s) 3. Reviewed the pertinent medica l history 4. Discussed the surgical plan an d course 5. Reviewed intra-op anesthesia manag ement and issues during anesthesia 6. Se t expectations for the relief (and/or post-pro cedure) period 7. Allowed opportunity for questions and acknowledgement of understanding Dorothea Lewis CRNA 1154 Quick Note Air added to ETT cuff per surgeon reporting leak 1215 Break/Relief Out 1236 Extubation/LMA Out 1238 an stop data 1243 Recovery or ICU Handoff Patient care was transferred to the destination unit staff after review of the patient's medica l history, current anesthetic/surgi jose cruz status and plan, according to the Provider Handoff Checklist. 1243 Stop Name Total fentaNYL 50 mcg Propofol 120 mg Rocuronium 30 mg PHENYLephrine 240 mcg Ondansetron 8 mg Dexamethasone 4 mg Glycopyrrolate 0.2 mg Succinylcholine 100 mg PHENYLephrine INF 620 mcg Sugammadex 200 mg Lactated Ringers 300 mL Agents Name O2 Air N2O Sevoflurane (et) O2 Auxiliary Flowmeter 2 Blood No blood administrations on file. Lines, Drains, and Airways Type Details Placement Removal Incision 11/11/21; Right, upper; gum 11/11/21 0000 by Mare Rodríguez RN Incision 11/11/21; 1146; throat 11/11/21 1146 by Mare Landry RN PIV 11/11/21; 0937; cephalic 11/11/21 0937 by Eleazar fletcher, 12/23/21 1252 by vein (lateral side of arm), REBECCA Dow Cathleen M, left; [id number] RN catheter system; 20 gauge, 1 in length; Harika Morris RN; distraction, intradermal injection, tolerated well, appears comfortable; 0; LDA not present upon assessment; 12/23/21; 1252 ETT Mask Ventilation: Adjunct 11/11/21 1128 by 11/11 1236 by (2); ETT Type: Cuffed, Oral, Jefe Valle C RNA Jefe Valle CRNA TELEPATHIST; ETT Size: 6 mm; Indirect:Video (FOB); Notes: Asleep, Pre-O2; Attempts: 1; Laryngoscopy Grade: 1; ETT Placement Verified By: Auscultation, Capnometry, Visual; Secured at Teeth: 24 cm; Inserted by: Tori FITCH documented in this encounter Social History Tobacco Use Types Packs/Day Years [...] on file documented as of this encounter OR Notes Anesthesia Postprocedure Evaluation - Anne Marie Matute MD - 11/12/2021 2:27 PM EDT Department of Anesthesiology Post-procedure Note Patient: Pino Wong Procedure Summary Date: 11/11/21 Room / Location: [facility] MAIN OR Anesthesia Start: 1115 Anesthesia Stop: 1243 Procedures: LARYNGOSCOPY, MICROSCOPE, WITH BIOPSY (WRVU 3.55) (N/A Throat) BIOPSY OF TONSIL (WRVU 7.69) (Left ) FINE NEEDLE ASPIRATION BIOPSY, INC US GUIDANCE; FIRST LESION (Left Neck) SURGICAL EXTRACTIONS REQUIRING ELEVATION OF MUCOPERIOSTEAL FLAP AND REMOVAL OF BONE OR SECTION OF TOOTH (WRVU 1.09) (Mouth) Diagnosis: Tonsil cancer (oropharyngeal cancer) Surgeons: Jarett Cedillo MD; Dejan Alas MD Responsible Provider: Anne Marie Matute MD Anesthesia Type: general ASA Status: 3 All Anesthesia Providers: Anesthesiologist: Anne Marie Matute MD NUCLEAR STATION OPERATOR: Jefe Valle CRNA Vitals Value Taken Time BP 142/80 11/11/21 1400 Temp 36.3 ??C (97.3 ??F) 11/11/21 1345 Pulse 71 11/11/21 1241 Resp 16 11/11/21 1400 SpO2 92 % 11/11/21 1400 Pain Level 7 11/11/21 1345 Vitals shown include unvalidated device data. Patient Location: PACU/SD Level of Consciousness: Conscious but Sleepy Pain Management: Satisfactory Analgesia PONV: None Cardiovascular Status: At Baseline Respiratory Status: At Baseline Postoperative Fluid Status: Intravascular EUvolemia Possible Anesthetic Complications: NONE apparent at time of evaluation Final Primary Anesthesia Type: General (The anesthetic type performed was the same as planned.) Comments: Anesthesia Preprocedure Evaluation - Anne Marie Matute MD - 11/11/2021 11:00 AM EDT Pre-Anesthesia Evaluation for: Pino Wong a 86 y.o. male. Procedure(s): LARYNGOSCOPY, MICROSCOPE, WITH BIOPSY (WRVU 3.55) SURGICAL EXTRACTIONS REQUIRING ELEVATION OF MUCOPERIOSTEAL FLAP AND REMOVAL OF BONE OR SECTION OF TOOTH (WRVU 1.09) Patient Active Problem List Diagnosis Date Noted ??? 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 History of kidney stones 10/30/2021 ??? S/P TKR (total knee replacement), bilateral 10/30/2021 ??? Hypercholesterolemia 10/30/2021 ??? Actinic keratosis 12/23/2015 ??? Filiform wart 12/23/2015 ??? AK (actinic keratosis) 08/17/2012 ??? SK (seborrheic keratosis) 08/17/2012 ??? History of nonmelanoma skin cancer 08/17/2012 Past Medical History: Diagnosis Date ??? AK (actinic keratosis) ??? Filiform wart ??? Nonmelanoma skin cancer ??? SK (seborrheic keratosis) Past Surgical History: Procedure Laterality Date ??? CATARACT REMOVAL ??? KNEE SURGERY ??? TURP N/A 05/2021 Social History Tobacco Use ??? Smoking status: Never Smoker ??? Smokeless tobacco: Never Used Substance Use Topics ??? Alcohol use: Not Currently Social History Substance and Sexual Activity Drug Use Never No Known Allergies Medications: MAR and/or home medications have been reviewed. Physical Exam: Preprocedure Vitals Current as of 11/11/21 1100 BP: 161/94 Pulse: 85 Resp: 16 SpO2: 96 Temp: 36.2 ??C (97.2 ??F) Height: 177.8 cm (5' 10) (11/11/21) Weight: 90.9 kg (200 lb 8 oz) (11/11/21) BMI: 28.77 IBW: 73 kg (160 lb 15 oz) Last edited 11/11/21 0929 by ORDER DESK CALLER Airway Assessment: Mallampati: II TM distance: >3 FB Neck ROM: full Cardiovascular Assessment: system normal Pulmonary Assessment: breath sounds clear to auscultation pulmonary exam normal Dental Assessment: Misc Assessment: IV access: Peripheral line Last Filed Perioperative Cognitive Screening None Anesthesia Plan: ASA 3 general, with a(n) intravenous induction 86 yo male for laryngoscopy with biopsy and tooth extraction. Hx of right tonsillar CA, tooth with damaged crown - planned extraction prior to beginning RT. Chart reviewed, imaging noted, and patient interviewed and examined prior to surgery. Plan GA. Region - Other Informed Consent: Anesthetic plan and risks discussed with patient. Plan discussed with NUCLEAR STATION OPERATOR. Anesthesia Screening documented in this encounter Plan of Treatment Upcoming Encounters Date Type Specialty Care Team Description 01/26/2022 Infusion Hematology and Oncology 01/26/2022 Office Visit Hematology and Oncology Mirta Sy MD [facility] DR ONCOLOGY DEPT. [place] [address] (Wo rk) 01/28/2022 Office Visit Radiation Oncology Chilango Michel MD [facility] [place] [address] (Wo rk) 01/29/2022 Infusion Hematology and Oncology 02/05/2022 Infusion Hematology and Oncology documented as of this encounter Visit Diagnoses Not on filedocumented in this encounter Administered Medications Inactive Administered Medications - up to 3 most recent administrations Medication Order MAR Action Action Date Dose Rate Site dexAMETHasone (Decadron) injection Given 11/11/2021 11:28 AM EDT 4 mg Intravenous, PRN, Starting on Wed11/11/21 at 1128, Until Wed11/11/21 at 1243, Anesthesia Intra-op, Routine fentaNYL (pf) (50 mcg/mL) multi-dose Given 11/11/2021 11:21 AM E DT 50 mcg injection Intravenous, PRN, Starting on Wed11/11/21 at 1121, Until Wed11/11/21 at 1243, Anesthesia Intra-op, Routine glycopyrrolate (Robinul) (0.2 mg/mL) Given 11/11/2021 11:03 AM E DT 0.2 mg multi-dose injection Intravenous, PRN, Starting on Wed11/11/21 at 1103, Until Wed11/11/21 at 1243, Anesthesia Intra-op, Routine lactated ringers infusion New Bag 11/11/2021 11:21 AM EDT Intravenous, CONTINUOUS PRN, Starting on Wed11/11/21 at 1121, Until Wed11/11/21 at 1243, Anesthesia Intra-op ondansetron (pf) (Zofran) (2 mg/mL) inje ction Given 11/11/2021 12:16 PM EDT 4 mg Intravenous, PRN, Starting on Wed11/11/21 at 1128, Until Wed11/11/21 at 1243, Anesthesia Intra-op, Routine Given 11/11/2021 11:28 AM EDT 4 mg PHENYLephrine (Francisco-Synephrine) (80 New Bag 11/11/2021 11:45 AM 20 mcg/min 15 mL/hr mcg/mL) in sodium chloride 0.9% EDT 250 mL infusion Intravenous, CONTINUOUS PRN, Starting on Wed11/11/21 at 1145, Until Wed11/11/21 at 1243, Anesthesia Intra-op, Routine PHENYLephrine in NS (PF) (FRANCISCO-SYNEPHRINE) Given 11/11/2021 11:41 AM EDT 80 mcg 0.8 mg/10 mL (80 mcg/mL) multi-dose injection Syrg Intravenous, PRN, Starting on Wed11/11/21 at 1138, Until Wed11/11/21 at 1243, Anesthesia Intra-op, Routine Given 11/11/2021 11:40 AM EDT 80 mcg Given 11/11/2021 11:38 AM EDT 80 mcg propofoL (Diprivan) 10 mg/mL bolus injection Given 11:26 AM EDT 20 mg (Anesthesia) Intravenous, PRN, Starting on Wed11/11/21 at 1121, Until Wed11/11/21 at 1243, Anesthesia Intra-op Given 11/11/2021 11:21 AM EDT 100 mg rocuronium (Zemuron) (10 mg/mL) multi-dose Given 11/11/2021 11:3 3 AM EDT 30 mg injection Intravenous, PRN, Starting on Wed11/11/21 at 1133, Until Wed11/11/21 at 1243, Anesthesia Intra-op, Routine succinylcholine (Anectine;Quelicin) (20 Given 11/11/2021 11:23 A M EDT 100 mg mg/mL) injection Intravenous, PRN, Starting on Wed11/11/21 at 1123, Until Wed11/11/21 at 1243, Anesthesia Intra-op, Routine sugammadex (Bridion) 100 mg/mL injection Given 11/11/2021 12:25 PM EDT 200 mg Intravenous, PRN, Starting on Wed11/11/21 at 1225, Until Wed11/11/21 at 1243, Anesthesia Intra-op, Routine documented in this encounter Care Teams Director Business Development Relationship Specialty Start Date End Date Amelia Gomes APRN PCP - General Family Medicine 10/17/[address] [place] [address] documented as of this encounter
--- OUTSIDE RECORDS SUMMARY | 2022-01-24 03:58 | XMS_ITS | Encounter Summary ---
:1935 Author Organization [facility] [place] [address] Care Team Providers Name Role Phone Amelia Gomes Sarina CARLOS Primary Care Provider [phone] Reason for Referral Diagnostic Test (Routine) - Closed Specialty Diagnoses / Procedures Referred By Contact Refer red To Contact Radiology Diagnoses Tonsil cancer Carlos Lezama MD [facility] Interventionl Rad Procedures IR Suture Release [facility] [place] [address] [place] [address] Referral ID Status Reason Start Date Expiration Date Visits V isits Requested Authorized [id number] Closed Specialty 11/13/2021 05/16/2023 1 1 Service Requested iagnostic Test (Routine) - Closed Specialty Diagnoses / Procedures Referred By Contact Refer red To Contact Radiology Diagnoses Tonsil cancer Kale Sy MD [facility] Interventionl Rad Procedures IR G-Tube Placement [facility] [place] [address] [place] [address] Referral ID Status Reason Start Date Expiration Date Visits V isits Requested Authorized [id number] Closed Specialty 10/30/2021 05/02/2023 1 1 Service Requested iagnostic Test (Routine) - Closed Specialty Diagnoses / Procedures Referred By Contact Refer red To Contact Radiology Diagnoses Tonsil cancer Kale Sy MD [facility] [place] [address] [place] [address] Referral ID Status Reason Start Date Expiration Date Visits V isits Requested Authorized [id number] Closed Specialty 10/30/2021 05/02/2023 1 1 Service Requested Reason for Visit Diagnostic Test (Routine) - Closed Specialty Diagnoses / Procedures Referred By Contact Refer red To Contact Radiology Diagnoses Tonsil cancer Kale Sy MD [facility] Interventionl Rad Procedures IR [facility] [place] [address] [place] [address] Referral ID Status Reason Start Date Expiration Date Visits V isits Requested Authorized [id number] Closed Specialty 10/30/2021 05/02/2023 1 1 Service Requested Encounter Details Date Type Department Care Team Description 11/13/2021 Hospital Encounter Radiology at [facility] Kale Sy, Pre-op testing; [facility] Tonsil cancer [facility] [address] ONCOLOGY DEPT. [phone] [place], [place] [address] Social History Tobacco Use Types [...] Sign Reading Time Taken Comments Blood Pressure 157/89 11/13/2021 1:00 PM EDT Pulse 75 11/13/2021 11:45 AM EDT Temperature 36 ??C (96.8 ??F) 11/13/2021 11:45 AM EDT Respiratory Rate 16 11/13/2021 1:00 PM EDT Oxygen Saturation 91% 11/13/2021 1:00 PM EDT Inhaled Oxygen Concentration - - Weight - - Height - - Body Mass Index - - documented in this encounter Discharge Instructions Discharge Nikkie Samuel RN - 11/13/2021 11:50 AM EDT Department of Vascular and Interventional Radiology Discharge Instructions for your Chest Port You have received a ???Power Port?? , which provides access for infusions and blood draws. What makes this a ???Power Port?? is the unique ability to ???power inject?? contrast (intravenous dye) through the port when getting a CT scan, which produces superior images (pictures). Patients who don???thave these special ports need to have an IV started if they need dye injected for their CT scan. Your port is printed with the letters ???CT?? which can be detected by x- ray to identify it as a ???Power Port?? . You will be provided with an ID card stating the discovery manager and type of port you have. Please carry this with you in a safe place. Bandage: There is a sterile dressing over the port site consisting of small gauze with a clear dressing (Tegaderm or [id number] ). This dressing should be left in place for 48 hours. If the clear dressing becomes loose you should place tape over the edges to secure it in place. Note: If you have steri-strips beneath your dressing, simply allow them to fall off. Do not peel them off. There may be Dakota-chen (skin glue) also, allow this to flake off. Pain: Apply ice bag to site (s) at 30 minute intervals (30 minutes on and 30 minutes off) for 24 hours?? . May use as needed for pain and/or bruising after 24 hours. Bathing: Do not take a shower until 48 hours after your port is placed; after this time you may shower with the dressing in place, then remove it and pat your skin dry. After 48 hours, we recommend that you cover the area with THE AQUA GUARD PROVIDED for 1 week while showering, facing away from the shower stream. You may use a bandaid to cover the site after the 48 hours are up if there is any drainage. No tub baths, whirlpools or swimming for one week following port placement. Flushing the mediport: If your port has not been used, it must be flushed every 30 days. What to expect when your port is accessed: 1. You may feel tenderness the first few times it is accessed but generally this subsides over time.Ask your healthcare provider to use a local anesthetic on the site if discomfort is a problem for you. You may ask for a prescription for a topical cream (EMLA) from your clinician; you may apply at home prior to your appointments, to help numb the skin over your port. 2. The clinician should be wearing sterile gloves and a mask during the access procedure. Anyone in the room with you should also have a mask on. 3. The skin over and 2 inches around the port should be cleaned with a disinfectant 4. Tell the clinician if you would like the skin numbed (lidocaine) before the access needle is placed. 5. Unless you are unable to take heparin (blood thinner), the port should be injected with a heparinsolution before deaccess (at end of each treatment or blood draw). When to call your healthcare provider: If you notice bleeding from the puncture site in your neck, or from the port incision on your chest,you should apply firm pressure over the site for 10-15 minutes, keeping the site covered. Call if you are still bleeding after 10-15 minutes. If you develop pain, redness, drainage or swelling at or around the port site, or the puncture site in the neck If you develop fever (elevation of more than 2 degrees or greater than 101F) and/or shaking chills When to call the Interventional Radiology Department: Please call with any questions or concerns. Ifit is during regular office hours, please call [phone]. If it is after regular office hours, oron weekends or holidays, please call [phone] and ask to speak to the Radio Division Captain on callfor Interventional Radiology. XXX You have received medication during your procedure to help lessen anxiety and keep you comfortable. These medications affect judgement and reaction time. We recommend that you do not drive, operateequipment, sign any important documents, or smoke unattended for 24 hours following your procedure. Because of the sedation, be careful on stairs, as you may be unsteady on your feet. You may resume your regular diet as tolerated. IV site -- slight redness, or tenderness is normal, you can use a warm compress. If tenderness and redness increases or foul drainage occurs, please contact your M. D. Revised 01/12/19 Discharge Instructions for Feeding Tube Care You had a feeding tube placed to help with your nutrition. The tube is either in your stomach, or your small intestine, depending on which tube you and your doctor decided upon. Please read the following instructions on how to care for your new feeding tube, and how to prevent, and treat, possible issues. How to care for your feeding tube: * The most common problem seen with feeding tubes is clogging. Proper flushing is the best way to avoid this issue. * Flush the feeding tube (you will use a special syringe for this) with 30-60 cc of room temperature or warm water every 4-6 hours during continuous feeding, anytime the feeding is interrupted, beforeand after every intermittent feeding or medication administration, or at least once or twice a day when the tube is not being used. DO NOT USE ACIDIC IRRIGANTS SUCH CRANBERRY JUICE OR COLA BEVERAGESTO FLUSH THE TUBE. These fluids will contribute to clogging. * Ask your provider to convert all your medications into liquid form. If you have medications whichare in pill or powder form, make sure they are crushed (ask your provider or pharmacist which medications cannot be crushed) and dilute them really well. Administer each medication separately as this will help prevent potential medication interactions and associated clogging. * If flushing becomes difficult, contact the Interventional Radiology department. DO NOT FORCEFULLY FLUSH, as this may result in rupture of the tube and injury to your intestine. * If you have the NON Low profile MAYRA-KNAPP feeding tube the retention balloon (side port labeled ???BAL?? ) should be checked every 1-2 weeks. It should contain between 5 cc of water. If it is low this should be replaced. Do not put medications or flush through this port. * If you have a low profile ???DENNIS-KNAPP?? feeding tube, the retention balloon (side port labeled ???BAL?? ) should be checked every 1-2 weeks. It should contain between 5 cc of water. If it is low this should be replaced. Do not put medications or flush through this port. If your tube becomes clogged: *DO NOT USE CRANBERRY JUICE, COLA DRINKS, MEAT TENDERIZER OR CHYMOTRYPSIN. Okay to use clear, white,sugar-free solutions such as water, seltzer water and DIET Mariela Yvette. *Make sure the feeding tube is not kinked or clamped off. If the clog is visible above the skin surface gently massage or ???milk?? the tube between fingers to break up the clog. Then flush the tube gently. STOP if it remains clogged. *Place the special syringe into the lumen of the tube and gently pull back, then depress the plunger to dislodge the clog. Gently continue these steps until the clog dislodges. If it does not dislodge, contact Interventional Radiology. DO NOT INSERT FOREIGN OBJECTS INTO THE TUBE. 2 If your tube falls out: You have been provided with a small red rubber catheter. If your tube falls out, place this catheterinto the hole in your skin, about 6 inches, and tape well to the skin. Please do not flush the tube or put tube feedings through this catheter until you have contacted Interventional Radiology. How to care for the skin around the feeding tube: * It is normal to see a small amount of yellow mucous accumulate around the tube. Gently cleanse the site with mild soap and water and pat dry. Try to avoid allowing the mucous to build up and scab. Clean sutures, external bolsters and any stabilizing devices with mild soap and water using a Q-tip. DO NOT USE HYDROGEN PEROXIDE. This can damage the tube and is harsh on the skin. * You may shower with the waterproof dressing on for the first 3 days. Then you may shower with the dressing off, cleansing the area as instructed. You can replace the dressing, or leave it off if you wish. No swimming, tub baths or whirlpools WITHOUT a waterproof bandage for the first 4 weeks. When to call your provider: * If you develop pain at the site of your feeding tube that doesn???t resolve with pain medications. * If you develop abdominal pain or bloating with flushing or feeding. * If you develop redness, swelling or drainage from the around the feeding tube or suture sites. * If you develop bleeding around or through the tube * If you have trouble flushing the tube, or if the feedings are running slower than usual * If you notice any damage to the tube or its attachments. INTERVENTIONAL RADIOLOGY PHONE NUMBERS [phone] If you have a NON Low profile feeding tube, call with any questions or concerns. During regular office hours call: [phone]. If it is after regular office hours, weekends or holidays, pleasecall [phone] and ask to speak to the Radio Division Captain clinical documentation manager for Interventional Radiology. If you have a low profile ???DENNIS-KNAPP?? feeding tube, please call Ely Goodwin RN for any issues: [phone]. Revised 01/12/19 AttachmentsThe following attachments cannot be sent through Care Everywhere. Feeding Tube: General Info (Thai)Tube Feeding: Home (Thai)documented in this encounter Medications at Time of [...] route 0 07/02 (FLONASE) 50 mcg/actuation daily. [place], Suspension simvastatin (ZOCOR) 80 mg 80MG, PO, Every 0 04/03 tablet other day allopurinol (ZYLOPRIM) 300 300mg, PO, QAM 0 04/03 mg tablet aspirin EC (Ecotrin Low Daily 0 01/09/2013 0 12/08/2021 Strength) 81 mg Tablet, Delayed Release (E.C.) documented as of this encounter Progress Notes Becky Mckeon RN - 11/13/2021 11:59 PM EDT Interventional and Vascular Radiology Post-Procedure Call Name: Pino Robb Age: 86 y.o. Sex: Male Date of : 1935 Telephone Number: [phone] (home) Telephone Information: PCP Amelia Gomes APRN [phone] Date/Time of call: November 14, 2021/8:48 AM Procedure: Mediport placement, G-tube placement Procedural Provider: MD Celestine and MD Teja Contact made with patient Are you having pain related to your procedure now? Minor discomfort at mediport insertion site. Instructed patient to continue using ice pack 30 minutes on/off and to call IR department if pain continues or increases. Patient verbalized understanding. Are you having any swelling, bleeding, or increased redness from the site? no If any, are your symptoms improving? n/a Are you having any other problems related to your procedure? no Do you have any questions about the discharge instructions given to you? Yes, question regarding howlong to leave G-tube to drainage. Spoke with Frederick Yu PA-C and instructed patient to cap g-tube and disconnect from drainage bag if no complications. Patient verbalized understanding. Do you have any comments about your Nurse or Provider or the care you received? No Comments (if applicable): Concerns addressed, questions answered. POC updated and reviewed. Becky Mckeon RN Hiral Barahona RN - 11/13/2021 11:09 AM EDT [facility] N[facility] DATABASE Name: PINO ROBB Date of : 1935 AGE: 86 y.o. Address: [address] [place] [address] Phone: [phone] (home) Mobile: Telephone Information: Referring Provider: Kale Sy REASON FOR VISIT: Mediport and G-tube placement Order Questions Answers Where will study be performed? [facility] Radiology [120] Prefered insertion location: Left side Is the patient on anticoagulant / antiplatelet therapy ? No Reason for exam and clinical history: need for chemo access Question Answer Where will study be performed? [facility] Radiology Is the patient on anticoagulant / antiplatelet therapy ? No Reason for exam and clinical history: tonsil cancer, anticipate severe throat pain with radiation Planned procedure: 1. Port implant 2. Percutaneous gastrostomy catheter placement Labs to be performed day of procedure: PT; Hemogram Sedation: Moderate (Conscious sedation) Prophylactic antibiotic : Ancef Contrast: No contrast Additional medications for procedure: Lidocaine Position: Supine Consent: Pending Medications to discontinue (and days held): None Case Urgency:: G- Other (non E or F elective cases) No Known Allergies Pertinent PMH: Patient Active Problem List Diagnosis Code ??? AK (actinic keratosis) L57.0 ??? SK (seborrheic keratosis) L82.1 ??? History of nonmelanoma skin cancer Z85.828 ??? Actinic keratosis L57.0 ??? Filiform wart B07.9 ??? 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 History of kidney stones Z87.442 ??? 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 Hypercholesterolemia E78.00 Date/Procedure Meds Given/Comments 11/05/21 U/S guided lymph node FNA Local 11/13/21 Mediport placement and G tube 16 FR DENNIS placement Fentanyl 200 mcg IV, Versed 4 mg IV, Cefazolin 2gm IVBP, Glucagon 1 mg IV 0920 to procedure room IR 1 via stretcher. Onto table Supine. All monitors, O2, safety strap in place. Meds per protocol. Laboratory Results: Lab Results Component Value Date CREATININE 0.87 10/09/2021 documented in this encounter H&P Notes Kurt Renee MD - 11/13/2021 8:48 AM EDT INTERVENTIONAL RADIOLOGY FOCUSED H&P: Procedure: Port implant and Gtube placement The patient's history and physical exam have been reviewed and completed. There has been no intervalchange from that of the pre-operative history and physical exam done within the last 30 days. Physical Exam: Cardiovascular: Regular, Normal Pulmonary: Breath sounds clear to auscultation The planned procedure (and sedation plan if appropriate) , its benefits and risks, and alternatives were discussed with the patient. The patient consented to the procedure. PRE-SEDATION ASSESSMENT: Sedation Plan: moderate (conscious sedation) ASA: 3: Patient with severe systemic disease Mallampati: III: only the base of the uvula can be seen Kurt Renee MD Interventional Radiology PGY4 11/13/21 Source Note - Meera Sosa PA - 10/30/2021 1:43 PM EDT Images from the original note were not included. Interventional Radiology Focused Pre-procedure H&P: PCP: Amelia Gomes APRN Referring Provider: No ref. provider found Planned procedure: 1. Port implant 2. 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 There are no answered order specific questions. History of Present Illness: Per chart review, Pino Robb is a 86 y.o. male with PMH of R tonsillar CA who presents to Interventional Radiology to undergo 1. Port implant 2. Percutaneous gastrostomy catheter placement. Per Oncology note 10/30, patient does not have significant dysphagia. G-tube is requested for anticipated dysphagia and inability to tolerate PO after chemoradiation. Remainder of patient's medical and surgical history, allergies, medications, and social/family history obtained below as previously outlined in patient's medical record. IR History: No prior procedures. 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 Port 2. G-tube. Plan Planned procedure: 1. Port implant 2. Percutaneous gastrostomy catheter placement Labs to be performed day of procedure: PT, Hemogram Sedation: Moderate (Conscious sedation) Prophylactic antibiotic : Ancef Contrast: No contrast Additional medications for procedure: Lidocaine Position: Supine Consent: Pending Medications to discontinue (and days held): None Cytopathology presence needed: No Case Urgency:: G- Other (non E or F elective cases) Labs: Lab Results Component Value Date CREATININE 0.87 10/09/2021 Allergies: Patient has no known allergies. Medications: Current Outpatient Medications on File Prior to [...] mouth. ??? fluticasone propionate (FLONASE) 50 mcg/actuation [place], Suspension by Each Nare route daily. ??? simvastatin (ZOCOR) 80 mg tablet 80MG, PO, Every other day ??? allopurinol (ZYLOPRIM) 300 mg tablet 300mg, PO, QAM No current facility-administered medications on file prior to visit. Past Medical/Surgical history: Patient Active Problem List Diagnosis Code ??? AK (actinic keratosis) L57.0 ??? SK (seborrheic keratosis) L82.1 ??? History of nonmelanoma skin cancer Z85.828 ??? Actinic keratosis L57.0 ??? Filiform wart B07.9 ??? 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 History of kidney stones Z87.442 ??? 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 Hypercholesterolemia E78.00 Past Medical History: Diagnosis Date ??? AK (actinic keratosis) ??? Filiform wart ??? Nonmelanoma skin cancer ??? SK (seborrheic keratosis) Past Surgical History: Procedure Laterality Date ??? CATARACT REMOVAL ??? KNEE SURGERY ??? TURP N/A 05/2021 Social History and Habits: Social History Tobacco Use ??? Smoking status: Never Smoker ??? Smokeless tobacco: Never Used Vaping Use ??? Vaping Use: Never used Substance Use Topics ??? Alcohol use: Not Currently ??? Drug use: Never Significant Family History: No family history on file. Pertinent ROS: as per HPI Physical Exam: Pending (to be performed in IR the day of procedure) ASA: Pending (to be assessed in IR the day of procedure) Mallampati class: Pending (to be assessed in IR the day of procedure) 10/30/2021 Meera Sosa PA-C documented in this encounter Plan of Treatment Upcoming Encounters Date Type Specialty Care Team Description 01/26/2022 Infusion Hematology and Oncology 01/26/2022 Office Visit Hematology and Oncology Mirta Sy MD [facility] ONCOLOGY DEPT. [place], [place] [address] (Wo alondra) 01/28/2022 Office Visit Radiation Oncology Chilango Michel MD [facility] [place]ATION [place], [place] [address] (Wo rk) 01/29/2022 Infusion Hematology and Oncology 02/05/2022 Infusion Hematology and Oncology Scheduled Orders Name Type Priority Associated Diagnoses Order S chedule IR Suture Release Imaging Routine Tonsil cancer Expected: 11/20/2021 (Approximate), Expires: 12/14/2021 documented as of this encounter Procedures Procedure Name Priority Date/Time Associated Diagnosis Comme nts IR MEDIPORT Routine 11/13/2021 11:38 AM Tonsil cancer Results for this PLACEMENT EDT procedure are i n the results section. IR G-TUBE PLACEMENT Routine 11/13/2021 11:38 AM Tonsil cancer Results for this EDT procedure are i n the results section. documented in this encounter Results IR G-Tube Placement (11/13/2021 11:38 AM EDT) [...] to procedure. Impression: 1) Implantation of power-injectable, [email or web address] 8 Fr Dignity Mini Profile single-lumen port [...] 7-10 days, order place d and IR pelt inspector notified. - Mediport ready for immediate use. - To angio recovery, may discharge home when criteria met. Resident/Fellow: Carlos Lezama MD Attending: Dr. Sprague I, Dr. Sprague, was present throughout e procedure. I was present during the intraservice ti me as documented by the IR Nurse. ?? Kale Sy MD IMG IR ORDERABLES IR Mediport Placement (11/13/2021 11:38 AM [...] 7-10 days, order place d and IR pelt inspector notified. - Mediport ready for immediate use. [...] Time Signature WBC 6.5 4.0 - 9.5 [facility] x10(3)/[place] LABORATORY RBC 4.84 4.58 - [facility] 5.54 [facility] x10(6)/[facility] LABORATORY Hemoglobin 15.1 13.7 - [facility] 16.[facility] g/dL [facility] LABORATORY Hematocrit 45.7 40.5 - [facility] 48.5 % [facility] LABORATORY MCV 94.4 (H) 82.9 - [facility] 93.1 [facility] LABORATORY MCH 31.2 27.5 - [place] 32.1 pg [facility] LABORATORY MCHC 33.0 32.0 - [place] 35.7 g/dL [facility] LABORATORY Platelets 236 145 - 357 [facility] x10(3)/[place] LABORATORY RDWSD 47.2 (H) 36.0 - [facility] 45.0 [facility] RDWCV 13.5 11.4 - [facility] 13.8 % [facility] LABORATORY MPV 8.8 7.6 - 12.9 [facility] LABORATORY nRBC % Auto 0.0 % [facility] LABORATORY nRBC Abs Auto 0.000 0.000 - [facility] 0.000 [facility] x10(3)/[facility] LABORATORY Specimen Anatomical Collection Method Collection Time Receive d Time (Source) Location / / Volume Laterality Blood 11/13/2021 7:59 AM 8:07 EDT AM EDT Resulting Agency Comment Spec In Lab Kale Sy MD HEMATOLOGY ORDERABLES Performing Organization Address City/State/[place] [address] Prothrombin Time (11/13/2021 7:59 AM EDT) P athologist Signature PT 11.7 9.4 - 12.5 [facility] LABORATORY INR 1.0 [facility] LABORATORY Comment: An INR <2.0 indicates adequate [...] Organization Address City/State/[place]IP [place] [address] [facility] [address] documented in this encounter Visit Diagnoses Diagnosis Pre-op testing Preoperative examination, unspecified Tonsil cancer Malignant neoplasm of tonsil documented in this encounter Administered Medications Inactive Administered Medications - up to 3 most recent administrations Medication Order MAR Action Action Date Dose Rate Site ceFAZolin (Ancef) 2 g vial New Bag 11/13/2021 9:41 AM EDT 2 g 200 mL/hr attach to sodium chloride 0.9% 100 mL Mini-Bag Plus 2 g, Intravenous, ONCE, 1 dose, On Mickie 11/13/21 at 0900, Administer over 30 Minutes, Redose every 3 hours if CrCl is greater than 20. Redose every 8 hours if CrCl is less than 20., Angio/IR (Day of Procedure), Indication for (Active or Suspected): Prophylaxis fentaNYL (pf) (50 mcg/mL) multi-dose Given 11/13/2021 11:10 AM E DT 25 mcg injection 25-50 mcg 25-50 mcg, Intravenous, EVERY 3 MIN PRN, Starting on Mickie 11/13/21 at 0832, Until Mickie 11/13/21 at 1330, Pain, per unit protocol, - Start dose 50 mcg (reduce dose to 25 mcg if history of sedation sensitivity). - Titration dose 25-50 mcg IV, (based on patient response) every 3 minutes PRN, to maintain procedural pain less than 2 per pain Scale. Maximum dose: 50 mcg/dose, 250 mcg/hour For use in Interventional Radiology (IR) only for procedural sedation with direct provider supervision and verbal order., Angio/IR (Day of Procedure), Routine Given 11/13/2021 10:56 AM EDT 25 mcg Given 11/13/2021 10:42 AM EDT 25 mcg glucagon (Glucagen) (1 mg/mL) injection Given 11/13/2021 10:46 A M EDT 1 mg solution 1 mg 1 mg, Intravenous, ONCE, 1 dose, On Mickie 11/13/21 at 0900, For use in Interventional Radiology (IR) only for procedure with direct provider supervision and verbal order. , Angio/IR (Day of Procedure), Routine iohexoL (Omnipaque) (350 mg/mL) solution Given 11/13/2021 10:12 AM EDT 20 mLs 1-400 mL 1-400 mL, Other, ONCE, 1 dose, On Mickie 11/13/21 at 0900, For intra-procedural use by proceduralist., Angio/IR (Day of Procedure), Routine lidocaine (Xylocaine) 1% (10 mg/mL) injection Given 9:58 AM EDT 10 mg 10 mg 10 mg, Subcutaneous, ONCE, 1 dose, On Mickie 11/13/21 at 0900, For use in Interventional Radiology (IR) only for procedure with direct provider supervision and verbal order., Angio/IR (Day of Procedure), Routine lidocaine (Xylocaine) 1% Given 11/13/2021 10:57 AM EDT 20 mg Left Upper Outer (10 mg/mL) injection 3 mg Quadrant 3 mg (0.3 mL), Subcutaneous, ONCE PRN, 1 dose, Starting on Mickie 11/13/21 at 0832, Until Mickie 11/13/21 at 1057, for discomfort with PIV insertion, Angio/IR (Day of Procedure), Routine midazolam (pf) (Versed) (1 mg/mL) multi-dose Given 11:09 AM EDT 0.5 mg injection 0.5-1 mg 0.5-1 mg, Intravenous, EVERY 3 MIN PRN, Starting on Mickie 11/13/21 at 0832, Until Mickie 8 at 1330, Sleep, - Start dose; 1 mg (Reduce dose to 0.5 mg if history of sedation sensitivity). - Titration dose: 0.5 mg - 1 mg (based on patient response) every 3 minutes PRN to obtain RASS score of -3. Maximum dose: 1 mg per dose, 5 mg/hour. For use in Interventional Radiology (IR) only for procedural sedation with direct provider supervision and verbal order., Angio/IR (Day of Procedure), Routine Given 11/13/2021 10:56 AM EDT 0.5 mg Given 11/13/2021 10:42 AM EDT 0.5 mg documented in this encounter Care Teams Transmitter Supervisor Relationship Specialty Start Date End Date Amelia Gomes APRN PCP - General Family Medicine 10/17/[address] [place] [address] documented as of this encounter
--- OUTSIDE RECORDS SUMMARY | 2022-01-24 03:58 | XMS_ITS | Encounter Summary ---
:1935 Author Organization [facility] [place] [address] Care Team Providers Name Role Phone Amelia Gomes Sarina CARLOS Primary Care Provider [phone] Reason for Referral Diagnostic Test (Routine) - Closed Specialty Diagnoses / Procedures Referred By Contact Refer red To Contact Radiology Diagnoses Tonsil cancer Kale Sy MD [facility] Interventionl Rad Procedures IR Biopsy Lymph Node (Head/Neck) IR FNA Thyroid Nodule [facility] [place] [address] [place] [address] Referral ID Status Reason Start Date Expiration Date Visits V isits Requested Authorized [id number] Closed Specialty 10/30/2021 05/02/2023 1 1 Service Requested iagnostic Test (Routine) - Closed Specialty Diagnoses / Procedures Referred By Contact Refer red To Contact Radiology Diagnoses Tonsil cancer Kale Sy MD [facility] Interventionl Rad Procedures IR G-Tube Placement [facility] [address] [facility] [place] [address] [place] [address] Referral ID Status Reason Start Date Expiration Date Visits V isits Requested Authorized [id number] Closed Specialty 10/30/2021 05/02/2023 1 1 Service Requested iagnostic Test (Routine) - Closed Specialty Diagnoses / Procedures Referred By Contact Refer red To Contact Radiology Diagnoses Tonsil cancer Kale Sy MD [facility] Interventionl Rad Procedures IR Mediport Placement [facility] [place] [address] [place] [address] Referral ID Status Reason Start Date Expiration Date Visits V isits Requested Authorized [id number] Closed Specialty 10/30/2021 05/02/2023 1 1 Service Requested Reason for Visit Reason Comments Establish Care Consultation (Routine) - Closed Specialty Diagnoses / Procedures Referred By Contact Refer red To Contact Hematology and Oncology Diagnoses Tonsil cancer Jarett Cedillo, [facility] Hem Onc [address] [facility] [address] [place]OLOGY DEPT. [address] [place] [address] Referral ID Status Reason Start Date Expiration Date Visits V isits Requested Authorized [id number] Closed Consult, 10/09/2021 10/09/2022 1 1 Test & Treat Encounter Details Date Type Department Care Team Description 10/30/2021 Office Visit Hematology and Kale Sy MD [facility] [place] [address] Tonsil cancer; Oncology at [facility] Janice Barth APRN [facility] [place] [id number] [place] of [place] [address] Social History Tobacco Use Types Packs/Day Years [...] Sign Reading Time Taken Comments Blood Pressure 151/94 10/30/2021 8:23 AM EDT Pulse 77 10/30/2021 8:23 AM EDT Temperature 36.3 ??C (97.3 ??F) 10/30/2021 8:23 AM EDT Respiratory Rate 17 10/30/2021 8:23 AM EDT Oxygen Saturation 96% 10/30/2021 8:23 AM EDT Inhaled Oxygen Concentration - - Weight 91.2 kg (201 lb) 10/30/2021 8:28 AM EDT Height 177.8 cm (5' 10) 10/30/2021 8:23 AM EDT Body Mass Index 28.84 10/30/2021 8:23 AM EDT documented in this encounter Progress Notes Kale Sy MD - 10/30/2021 8:30 AM EDT Images from the original note were not included. Head and Neck Cancer Medical Oncology Patient Active Problem List Diagnosis ??? 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 History of kidney stones Multiple urate stones Chronic allopurinol ??? S/P TKR (total knee replacement), bilateral ??? Hypercholesterolemia ??? Actinic keratosis ??? Filiform wart ??? AK (actinic keratosis) ??? SK (seborrheic keratosis) ??? 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 The patient is a functionally well 86-year-old never smoker who first noted mild discomfort in the right pharynx in April 2021. He noted mild irritation with swallowing spicy or acidic food or beverages. He brought this to medical attention, but apparently his primary care provider saw nothing worrisome. The symptoms persisted, and he asked for referral to Dr. Pena; at this point a tonsil tumor was visible. The patient also began to notice nontender adenopathy in the right neck. An office biopsy of the right tonsil was done 08/28/2021, returning p16 positive squamous cell carcinoma. He was referred to Dr. Cedillo on 10/09/2021. He also noted the right tonsil tumor and palpable neck adenopathy. PET/CT and CT scan were done the same day. The imaging studies suggested a somewhat invasive right tonsil tumor that approximated the carotid vessels, and thus robotic resection was deemed less appropriate than a chemoradiation approach. He was referred to Dr. Daniel Michel radiation oncology on 10/15, and has been referred to me to discuss systemic therapy as part of his treatment. Clinical trial HN 005 has been suggested to him, and he has reviewed the informed consent; he is interested in this clinical trial but has some questions. He is due for diagnostic laryngoscopy and mapping biopsies by Dr. Cedillo on 11/11. He has minimal symptoms. He continues to have some discomfort with swallowing spicy or acid foods, has no major dysphagia, no aspiration, no obstruction. He has not lost weight or had to modify his diet because of this cancer. He has no referred otalgia or other regional neurologic problems from the neck adenopathy. He does have a sensitive R upper tooth that has lost its crown, and extraction is being planned to coincide with his laryngoscopy. 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 He has no history of liver or kidney disease although his creatinine has been mildly elevated, most recently 1.4. Past medical history is notable for hypercholesterolemia on statin therapy; he denies a history of cardiovascular symptoms. He has had a number of uric acid kidney stones over the years, and has been on chronic suppressive allopurinol with good control. He is status post bilateral knee replacements for arthritis. He is monitored by dermatology for history of superficial sun related skin cancers. He is status post bilateral cataract extractions with lens implants. Social history reveals that he is , lives in [facility] where he was born and raised. 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 He is retired, but keeps quite busy with house chores and maintenance of his [place]. 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 Physical exam: He is accompanied by his who is well-informed and supportive. He looks well, sturdy build, could easily pass for 10 years younger than his stated age. Mallampati II pharynx. There is an endophytic erythematous tumor filling the right tonsil, extendingjust to the uvula, and down to but not invading the right posterior tongue. I do not see obvious floor of mouth or posterior pharyngeal involvement. Tongue mobility is normal although there is some discomfort with leftward protrusion. I do not see anything obvious in the left tonsil. Dental: Several missing, crown broken off from right upper molar, otherwise in good repair. There isno trismus. Neck: No distinct palpable adenopathy on the left; the right has several 1 to 2 cm nodes palpable deep in zones 2, 3, and 4. These are mobile. The lungs are clear Cardiac exam shows a regular rate and rhythm, normal heart tones Abdomen is benign without hepatosplenomegaly or masses. Extremities: Diffuse osteoarthritic changes in the fingers. Enlarged knee joints bilaterally consistent with prior surgery. Skin: No obvious lesions over the head and neck Neurologic: Grossly normal motor and sensory function. Reflexes 1+ at the knees. Cranial nerves normal, vocal phonation is normal, articulation clear. Extraocular eye movements and pupillary reactions normal. Finger rubbing test shows very slight decrease in acuity on the right; hehas no trouble hearing normal conversation volume. Pathology: Outside biopsy reviewed here, confirming p16 positive nonkeratinizing squamous cell carcinoma from the right tonsil Imaging: CT scan 10/09/2021: Informative in the right tonsil tumor, which extends into the parapharyngeal tissue close to the carotid. Although not noted in the official report, I have concerns about a left-sided zone 2 lymph node. FINDINGS: There is a 2.5 cm irregular poorly marginated enhancing mass centered in the right palatine tonsil. It extends medially to involve the uvula and anteriorly it appears to involve the base of tongue. Posterolaterally and extends up to the prestyloid parapharyngeal space but does not involve the common or internal carotid arteries. There is no visible involvement of the soft palate. ?? The mass approaches but does not appear to involve the neurovascular bundle of the tongue. MRI is preferred for evaluation of this feature. ?? There is pathologic adenopathy in the right neck with lymph nodes as follows: 2.1 cm level 2A, 1.2 cm level 5,, 2.2 cm level 5, and 1.2 cm level 5 0.8 cm right lateral retropharyngeal lymph node. PET/CT 10/09/2021: Informative in the right tonsil tumor, right retropharyngeal node, and several right neck nodes down to zone 5. I also have concerns about a left-sided zone 2 node, not commented uponin the report. IMPRESSION 1. FDG avid soft tissue fullness in the right lateral pharyngeal wall, consistent with primary tonsillar malignancy. 2. FDG avid adenopathy in the right levels 2 and 5 region, and subcentimeter FDG avid lymph node in the right upper retropharyngeal space, consistent with cris metastases. 3. No distant sites of metastasis. 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 This would still count as N1 disease, but I am concerned about the possibility of left-sided adenopathy, which would upstage the cancer to N2. He has mild renal dysfunction, with a calculated creatinine clearance of 50.26 by the Cockcroft-Gault formula. His most recent uric acid level was low. Plan: 1. We had a long conversation about his situation and the various options for therapy. We talked again about how surgery with a transoral approach would not be optimal given the proximity of the tumor to the carotid. We reaffirmed our group's recommendation for definitive chemoradiation. 2. We talked in more detail about the clinical trial HN 005. This randomizes between standard and modestly de-intensify radiation, and randomizes between 2 doses of cisplatin versus nivolumab concurrent with the radiation. We talked in broad strokes about the toxicity of these agents. We talked about the potential risks and benefits of enrolling on this clinical trial. 3. Before we finalize treatment plans however I believe we need to define whether or not there is lymphadenopathy in the left neck. I reviewed this with radiology, and an ultrasound-guided needle biopsy of the left neck node should be feasible and safe. I described to the patient how this is done and he is willing to proceed. 4. If the left neck is negative, we will discussed the HN 005 trial more extensively, and I would endorse this approach. If the left neck is positive for cancer, he would not be eligible for HN 005 butmay be eligible for HN 009, which randomizes between low-dose weekly and conventional high-dose 21-day cisplatin during standard radiotherapy. I did not discuss this clinical trial with him today. 5. For supportive care, I would recommend placement of a Mediport and a G-tube. We talked about the rationale for both of these. 6. Consider dose reduction of allopurinol due to renal dysfunction. 7. Follow-up to be determined by final staging. Chemoradiation will be delivered at our [facility] facility. Kale Sy MD, FACP vp platforms Hematology/Oncology Section [place] [phone] Voice recognition software used for this note; please excuse loan funder errors. I personally reviewed past medical, surgical, family medical histories, reviewed current medications, vital signs, labs, and performed full review of systems. These are documented below the narrative for clarity and succinctness. Outpatient Medications Marked as Taking for the 10/30/21 encounter (Office Visit) with Kale Sy MD Medication Sig Dispense Refill ??? acetaminophen (TYLENOL) 650 mg Tablet Sustained Release Take 650 mg by mouth every 8 hours as needed for Pain. Do not exceed 6 tabs in 24 hours ??? diclofenac (Voltaren) 1 % Gel Apply topically. ??? SAW PALMETTO ORAL Take by mouth. ??? KRILL OIL ORAL Take by mouth. ??? fluticasone propionate (FLONASE) 50 mcg/actuation [place], Suspension by Each Nare route daily. ??? simvastatin (ZOCOR) 80 mg tablet 80MG, PO, Every other day ??? allopurinol (ZYLOPRIM) 300 mg tablet 300mg, PO, QAM Past Medical History: Diagnosis Date ??? AK (actinic keratosis) ??? Filiform wart ??? Nonmelanoma skin cancer ??? SK (seborrheic keratosis) Past Surgical History: Procedure Laterality Date ??? CATARACT REMOVAL ??? KNEE SURGERY ??? TURP N/A 05/2021 History reviewed. No pertinent family history. Social History Socioeconomic History ??? Marital status: [...] Expenses: Not hard at all Food Insecurity: No Food Insecurity ??? Worried About Running Out of Food in the Last Year: Never true ??? Ran Out of Food in the Last Year: Never true Transportation Needs: No Transportation Needs ??? Lack of Transportation (Medical): No ??? Lack of Transportation (Non-Medical): No Physical Activity: Not on file Housing Stability: Low Risk ??? Unable to Pay for Housing in the Last Year: No ??? Number of Places Lived in the Last Year: 1 ??? Unstable Housing in the Last Year: No Review of Systems: Review of systems is negative for other SUPER[employer]OR [employer] OUTFITTING, bone, pulmonary, cardiac, GI, , extremity, neurologic, endocrine, skin, constitutional, emotional, or functional problems. Vitals Flowsheet Row Office Visit from 10/30/2021 in Hematology and Oncology at [facility] Weight 91.2 kg (201 lb) Height 177.8 cm (5' 10) BSA (Calculated - sq m) 2.12 sq meters BMI (Calculated) 28.84 Temp 36.3 ??C (97.3 ??F) Temp src Temporal Heart Rate 77 Heart Rate Source Monitor Resp 17 BP 151/94 BP Location Left arm Patient Position Sitting SpO2 96 % Body surface area is 2.12 meters squared. Wt Readings from Last 3 Encounters: 10/30/21 91.2 kg (201 lb) 10/09/21 90.7 kg (200 lb) 09/17/21 93.4 kg (206 lb) No results found for this or any previous visit (from the past 72 hour(s)). ++++++++++++++++++++++++++++++++++++++++++++++++++++ documented in this encounter Plan of Treatment Upcoming Encounters Date Type Specialty Care Team Description 01/26/2022 Infusion Hematology and Oncology 01/26/2022 Office Visit Hematology and Oncology Mirta Sy MD [facility] DR ONCOLOGY DEPT. [place], [place] [address] (Wo alondra) 01/28/2022 Office Visit Radiation Oncology Chilango Michel MD [facility] RADIATION ONCOLO [place], [place] [address] (Tomy cantu) 01/29/2022 Infusion Hematology and Oncology 02/05/2022 Infusion Hematology and Oncology documented as of this encounter Results IR G-Tube Placement (11/13/2021 [...] 7-10 days, order place d and IR machine operator replanter notified. - Mediport ready for immediate use. [...] to procedure. Impression: 1) Implantation of power-injectable, Mind Palette 8 Fr Dignity Mini Profile single-lumen port [...] 7-10 days, order place d and IR machine operator replanter notified. - Mediport ready for immediate use. - To angio recovery, may discharge home when criteria met. Resident/Fellow: Carlos Lezama MD Attending: Dr. Sprague I, Dr. Sprague, was present throughout e procedure. I was present during the intraservice ti me as documented by the IR Nurse. ?? Kale Sy MD IMG IR ORDERABLES IR Biopsy Lymph Node (Head/Neck) (11/05/2021 11:08 [...] have questions please contact the health career and technology education teacher that requested your imaging first. ? Narrative [...] have questions please contact the health career and technology education teacher that requested your imaging first. Kale Sy MD IMG IR ORDERABLES documented in this encounter Visit Diagnoses Diagnosis Tonsil cancer Malignant neoplasm of tonsil History of kidney stones Personal history of urinary calculi Tonsil cancer Malignant neoplasm of tonsil Pre-op testing Preoperative examination, unspecified Tonsil cancer Malignant neoplasm of tonsil documented in this encounter Care Teams Gas And Oil Checker Relationship Specialty Start Date End Date Amelia Gomes APRN PCP - General Family Medicine 10/17/20 [address] [place] [address] documented as of this encounter
--- OUTSIDE RECORDS SUMMARY | 2022-01-24 03:58 | XMS_ITS | Encounter Summary ---
:1935 Author Organization [facility] [place] [address] Care Team Providers Name Role Phone Amelia Gomes Sarina CARLOS Primary Care Provider [phone] Encounter Details Date Type Department Care Team Description 11/13/2021 Laboratory Appointment Lab 3L [facility] Pre-op testing; [facility] [place] [address] Social History Tobacco Use Types Packs/Day [...] 01/26/2022 Office Visit Hematology and Oncology Mirta yS MD [facility] DR ONCOLOGY DEPT. [place], [place] [address] (Wo rk) 01/28/2022 Office Visit Radiation Oncology Chilango Michel MD [facility] RADIATION ONCOLO GY [place], [place] [address] (Wo rk) 01/29/2022 Infusion Hematology and Oncology 02/05/2022 Infusion Hematology and Oncology documented as of this encounter Procedures Procedure Name Priority Date/Time Associated Comments Diagnosis HC HEMOGRAM STAT 11/13/2021 7:59 AM Pre-op testin g Results for this EDT Tonsil cancer procedure are in the results section. HC PROTHROMBIN TIME STAT 11/13/2021 7:59 AM Pre-op te sting Results for this EDT Tonsil cancer procedure are in the results section. documented in this encounter Results Prothrombin Time (11/13/2021 7:59 AM EDT) P athologist Signature PT 11.7 9.4 - 12.5 [facility] LABORATORY INR 1.0 [facility] LABORATORY Comment: An INR <2.0 indicates [...] Organization Address City/State/Z[place] [address] (ABNORMAL) Hemogram (11/13/2021 7:59 AM EDT) Analysis Performed At Patho logist Time Signature WBC 6.5 4.0 - 9.5 [facility] x10(3)/[facility] LABORATORY RBC 4.84 4.58 - FAN KENN 5.54 [facility] x10(6)/[facility] LABORATORY Hemoglobin 15.1 13.7 - [facility] [place] 16.5 g/dL [facility] LABORATORY Hematocrit 45.7 40.5 - [facility] [place] 48.5 % [facility] LABORATORY MCV 94.4 (H) 82.9 - [facility] KENN 93.1 [facility] LABORATORY MCH 31.2 27.5 - [place] 32.1 pg [facility] LABORATORY MCHC 33.0 32.0 - [facility] [place] 35.7 g/dL [facility] LABORATORY Platelets 236 145 - 357 [facility] x10(3)/[facility] LABORATORY RDWSD 47.2 (H) 36.0 - [facility] KENN 45.0 [facility] LABORATORY RDWCV 13.5 11.4 - [facility] KENN 13.8 % [facility] LABORATORY MPV 8.8 7.6 - 12.9 [facility] nRBC % Auto 0.0 % [facility] LABORATORY nRBC Abs Auto 0.000 0.000 - [facility] 0.000 [facility] x10(3)/[facility] LABORATORY Specimen Anatomical Collection Method Collection Time Receive d Time (Source) Location / / Volume Laterality Blood 11/13/2021 7:59 AM 2 8:07 EDT AM EDT Resulting Agency Comment Spec In Lab Kale Sy MD HEMATOLOGY ORDERABLES Performing Organization Address City/State/[place] [address] documented in this encounter Visit Diagnoses Diagnosis Pre-op testing Preoperative examination, unspecified Tonsil cancer Malignant neoplasm of tonsil documented in this encounter Care Teams Watch Crystal Cutter Relationship Specialty Start Date End Date Amelia Gomes APRN PCP - General Family Medicine 10/17/[address] [place] [address] documented as of this encounter
--- OUTSIDE RECORDS SUMMARY | 2022-01-24 03:58 | XMS_ITS | Encounter Summary ---
:1935 Author Organization [facility] [place] [address] Care Team Providers Name Role Phone Amelia Gomes Sarina CARLOS Primary Care Provider [phone] Reason for Referral Diagnostic Test (Routine) - Closed Specialty Diagnoses / Procedures Referred By Contact Refer red To Contact Radiology Diagnoses Tonsil cancer Marito Michel MD [facility] Rad Mri Procedures MRI Soft Tissue Neck wwo Contrast [facility] [place] [address] [place] [address] Referral ID Status Reason Start Date Expiration Date Visits V isits Requested Authorized [id number] Closed Specialty 11/04/2021 05/07/2023 1 1 Service Requested Encounter Details Date Type Department Care Team Description 11/04/2021 Orders Only Radiation Oncology a [place] [facility] Marito Michel MD Tonsil cancer [facility] [place] [address] RADIATION ONCOLOGY [phone] [place], [place] [address] (Wo rk) Social History Tobacco [...] MD [facility] DR ONCOLOGY DEPT. [place], [place] [address] (Wo alondra) 01/28/2022 Office Visit Radiation Oncology Chilango Michel MD [facility] RADIATION ONCOLO [place], [place] [address] (Wo alondra) 01/29/2022 Infusion Hematology and Oncology 02/05/2022 Infusion Hematology and Oncology documented as of this encounter Results MRI Soft Tissue Neck wwo Contrast (11/17/2021 [...] who have questions please contact the health patient care associate that requested your imaging first. ? Narrative [...] ho have questions please contact the health patient care associate that requested your imaging first. Marito Michel MD IMG MRI ORDERABLES documented in this encounter Visit Diagnoses Diagnosis Tonsil cancer Malignant neoplasm of tonsil Tonsil cancer Malignant neoplasm of tonsil documented in this encounter Care Teams Head Sawyer Relationship Specialty Start Date End Date Amelia Gomes APRN PCP - General Family Medicine 10/17/[address] [place] [address] documented as of this encounter
--- OUTSIDE RECORDS SUMMARY | 2022-01-24 03:58 | XMS_ITS | Encounter Summary ---
:1935 Author Organization [facility] [place] [address] Care Team Providers Name Role Phone MateoZaid simpsonAmeliamat Branch APRN Primary Care Provider [phone] Encounter Details Date Type Department Care Team Description 11/11/2021 Hospital Encounter Same Day Program at [facility] Tonsil cancer Mariam Lantigua MD [facility] [place] [address] DEPT. [phone] [place], [place] [address] (Wo rk) Social History Tobacco [...] Sign [place] Time Taken Comments Blood Pressure 142/80 11/11/2021 2:00 PM EDT Pulse 71 11/11/2021 12:41 PM EDT Temperature 36.3 ??C (97.3 ??F) 11/11/2021 1:45 PM EDT Respiratory Rate 16 11/11/2021 2:00 PM EDT Oxygen Saturation 92% 11/11/2021 2:00 PM EDT Inhaled Oxygen Concentration - - Weight 90.9 kg (200 lb 8 oz) 11/11/2021 9:29 AM EDT Height 177.8 cm (5' 10) 11/11/2021 9:29 AM EDT Body Mass Index 28.77 11/11/2021 9:29 AM EDT documented in this encounter Discharge Instructions Discharge InstructionsGrace Tello RN - 11/11/2021 12:59 PM EDT Next dose of ibuprofen (motrin) can be taken at 9pm. Patient InstructionsPaJarett cuba MD - 10/17/2021 3:56 PM EDT Post [...] have any questions or concerns: - Call [phone] during normal offices hours (8 AM - 5 PM during the week) - Call [phone] and ask for the ENT resident foundation coordinator after hours (nights and weekends) documented in [...] route 0 07/02 (FLONASE) 50 mcg/actuation daily. 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 The oral cavity was suctioned and an [...] Visit Hematology and Oncology Mirta Sy MD [facility] ONCOLOGY DEPT. [place], [place] [address] (Wo rk) 01/28/2022 Office Visit Radiation Oncology Chilango Michel MD [facility] RADIATION ON[place] [address] (Wo rk) 01/29/2022 Infusion Hematology and Oncology 02/05/2022 Infusion Hematology and Oncology documented as of this encounter Procedures Procedure Name Priority Date/Time Associated Comments Diagnosis FINE NEEDLE ASPIRATION Routine 11/11/2021 12:31 Tonsil cancer BIOPSY, INC US PM EDT GUIDANCE; FIRST LESION BIOPSY OF TONSIL Routine 11/11/2021 12:31 Tonsil cancer PM EDT NON-MICROPHONE BOOM OPERATOR FINAL REPORT Routine 11/11/2021 12:22 Res [...] BIOPSY EDT documented in this encounter Results Non-Reel And Rewinder Operator Final Report (11/11/2021 12:22 PM EDT) Component Value Ref Test Analysis Performed At [facility] gist Range Method Time Signature Non-Reel And Rewinder Operator [id number] ? Location: [facility]; [facility]; Rhina CHAVIRA Final Report KENN The signing pathologist has (i) examined the relevant preparation(s) for the [facility] specimen(s) and (ii) rendered or confirmed the diagnosis(es) . HOSPITAL LABORATORY . ? No n-Reel And Rewinder Operator Final DIAGNOSIS Suspicious for Malignancy Electronically signed by: ?Jocelyn MUNOZ, Gal Ac Verified: ??11/14/2021 14:26 ??Pathologist Performed at: ??-[facility] Dept. of Pathology, [place], [place] DISCUSSION Lymph node, left neck level [...] MD PATHOLOGY/CYTOLOGY ORDERABLE S Performing Organization Address City/[facility]/[place] [address] Cytopathology Non-Gynecological (11/11/2021 12:22 PM EDT) Specimen Anatomical Collection Method Collection Time Receive d Time (Source) Location / / Volume Laterality AP Specimen 11/11/2021 12:22 11/11/2021 PM EDT 12:22 PM EDT [facility]ative [facility] - 11/11/2021 12:22 PM EDT Specimen requisition ordered. ??Separate Pathology report to follow Jarett Cedillo MD PATHOLOGY/CYTOLOGY ORDERABLE S Performing Organization Address City/[facility]/[place] [address] Specimen to Pathology (11/11/2021 12:10 PM EDT) Specimen Anatomical Collection Method Collection Time Receive d Time (Source) Location / / Volume Laterality AP Specimen 11/11/2021 12:10 11/11/2021 PM EDT 12:10 PM EDT Narrative [facility] - 11/11/2021 12:10 PM EDT Specimen requisition ordered. ??Separate Pathology report to follow Jarett Cedillo MD PATHOLOGY/CYTOLOGY ORDERABLE S Performing Organization Address City/[facility]/[place] [address] Specimen to Pathology (11/11/2021 11:53 AM EDT) Specimen Anatomical Collection Method Collection Time Receive d Time (Source) Location / / Volume Laterality AP Specimen 11/11/2021 11:53 11/11/2021 AM EDT 11:53 AM EDT Narrative [facility] OR - 11/11/2021 11:53 AM EDT Specimen requisition ordered. ??Separate Pathology report to follow Jarett Cedillo MD PATHOLOGY/CYTOLOGY ORDERABLE S Performing Organization Address City/[facility]/[place] [address] Specimen to Pathology (11/11/2021 11:50 AM EDT) Specimen Anatomical Collection Method Collection Time Receive d Time (Source) Location / / Volume Laterality AP Specimen 11/11/2021 11:50 11/11/2021 AM EDT 11:50 AM EDT Narrative [facility] LABORAT [facility] - 11/11/2021 11:50 AM EDT Specimen requisition ordered. ??Separate Pathology report to follow Jarett Cedillo MD PATHOLOGY/CYTOLOGY ORDERABLE S Performing Organization Address City/State/[place] [address] [facility] LABORAT[address] Drive Surgical Pathology Report (11/11/2021 11:49 AM EDT) Component Value Ref Test Analysis Performed At [facility] Range Method Time Signature Surgical [id number] ? Location: [facility]; [facility]; A [facility] Report The signing pathologist has (i) [...] MD Verified: ??11/19/2021 11:01 ??Pathologist Performed at: ??-[facility] Dept. of Pathology, [place], [place] DISCUSSION Step levels were examined. SPECIMEN(S) [...] Organization Address City/State/[place] [address] documented in this encounter Visit Diagnoses Diagnosis Tonsil cancer Malignant neoplasm of tonsil documented in this encounter Administered Medications Inactive Administered Medications - up to 3 most recent administrations Medication Order MAR Action Action Date Dose Rate Site ketorolac (Toradol) (15 mg/mL) Given 11/11/2021 12:55 PM EDT 15 mg injection 15 mg 15 mg, Intravenous, EVERY 8 HOURS PRN, Starting on Wed11/11/21 at 1247, Until Wed11/11/21 at 1623, Pain, Routine oxyCODONE (Roxicodone) (1 mg/mL) oral liquid [...] Routine lidocaine-EPINEPHrine (2% - 1:100,000) injection cartridge ([facility]) 1158 (Given - Provider: Dejan Alas MD) ONCE PRN, Starting on Wed11/11/21 at 115 8, Until Wed11/11/21 at 1623, Intra- Operative (Intra-Procedure), Routine oxyCODONE (Roxicodone) (1 mg/mL) oral liquid 5 mg 1313 (Given - Provider: Grace Tello RN) 5 mg, Oral, EVERY 4 HOURS PRN, Starting on Wed11/11/21 at 1248, Until Wed11/11/21 at 1623, Pain, Routine documented in this encounter Care Teams Louver Door Assembler Relationship Specialty Start Date End Date Amelia Gomes APRN PCP - General Family Medicine 10/17/[address] [place] [address] documented as of this encounter
--- OUTSIDE RECORDS SUMMARY | 2022-01-24 03:58 | XMS_ITS | Encounter Summary ---
:1935 Author Organization [facility] [place] [address] Care Team Providers Name Role Phone MateoZaid simpsonAmeliamat Branch APRN Primary Care Provider [phone] Encounter Details Date Type Department Care Team Description 10/16/2021 Telephone [place] [address] Social History Tobacco Use Types Packs/Day [...] this encounter Miscellaneous Notes Telephone Encounter - Mckenzie Benson - 10/16/2021 4:09 PM EDT Philippe, Patient is scheduled to have surgery on 11/11/2021 and the packet has been mailed to the verified address on file. Follow up appointment is as follows: No follow up indicated in case Thank you!! documented in this encounter Plan of Treatment Upcoming Encounters Date Type Specialty Care Team Description 01/26/2022 Infusion Hematology and Oncology 01/26/2022 Office Visit Hematology and Oncology Mirta Sy MD [facility] DR ONCOLOGY DEPT. [place], [place] [address] (Wo rk) 01/28/2022 Office Visit Radiation Oncology Chilango Michel MD [facility] RADIATION ONCOLO [place], [place] [address] (Wo rk) 01/29/2022 Infusion Hematology and Oncology 02/05/2022 Infusion Hematology and Oncology documented as of this encounter Visit Diagnoses Not on filedocumented in this encounter Care Teams Money Laundering Investigator Relationship Specialty Start Date End Date Amelia Gomes APRN PCP - General Family Medicine 10/17/[address] [place] [address] documented as of this encounter
--- OUTSIDE RECORDS SUMMARY | 2022-01-24 03:58 | XMS_ITS | Encounter Summary ---
:1935 Author Organization [facility] [place] [address] Care Team Providers Name Role Phone Zaid Gomesistal Sarina CARLOS Primary Care Provider [phone] Reason for Referral Diagnostic Test (Routine) - Closed Specialty Diagnoses / Procedures Referred By Contact Refer red To Contact Radiology Diagnoses Tonsil cancer Marito Michel MD [facility] Rad Mri Procedures MRI Soft Tissue Neck [facility] RADIATION [place] [address] [place] [address] Referral ID Status Reason Start Date Expiration Date Visits V isits Requested Authorized [id number] Closed Specialty 11/04/2021 05/07/2023 1 1 Service Requested Reason for Visit Diagnostic Test (Routine) - Closed Specialty Diagnoses / Procedures Referred By Contact Refer red To Contact Radiology Diagnoses Tonsil cancer Marito Michel MD [facility] Rad Mri Procedures MRI Soft Tissue Neck [facility] RADIATION [place] [address] [place] [address] Referral ID Status Reason Start Date Expiration Date Visits V isits Requested Authorized [id number] Closed Specialty 11/04/2021 05/07/2023 1 1 Service Requested Encounter Details Date Type Department Care Team Description 11/17/2021 Hospital Encounter MRI at [facility] Marito Michel, Tonsil cancer [facility] [place] [address] RADIATION ONCOLO GY [place], [place] [address] (Wo rk) Social History Tobacco [...] route 0 07/02 (FLONASE) 50 mcg/actuation daily. [place], Suspension simvastatin (ZOCOR) 80 mg 80MG, PO, [...] Visit Hematology and Oncology Mirta Sy MD [facility] DR ONCOLOGY DEPT. [place], [place] [address] (Wo rk) 01/28/2022 Office Visit Radiation Oncology Chilango Michel MD [facility] RADIATION ONCOLO [place], [place] [address] (Wo rk) 01/29/2022 Infusion Hematology and Oncology 02/05/2022 Infusion Hematology and Oncology documented as of this encounter Procedures Procedure Name Priority Date/Time Associated Diagnosis Comme nts MRI NECK WITH/WO Routine 11/17/2021 2:32 PM Tonsil cancer Resu lts for this CONTRAST EDT procedure are i n the results section. documented in this encounter Results MRI Soft Tissue Neck [...] who have questions please contact the health emergency care attendant that requested your imaging first. ? Electronically signed by: Ricardo claros MD, [facility] ([phone]), at 11/18/2021 11:57 AM Narrative 11/18/2021 11:57 AM EDT EXAMINATION: MRI [...] ho have questions please contact the health emergency care attendant that requested your imaging first. Electronically signed by: Ricardo claros MD, [facility] ([phone]), at 11/18/2021 11:57 AM Marito Michel MD [facility] [place] ORDERABLES documented in this encounter Visit Diagnoses Diagnosis Tonsil cancer Malignant neoplasm of tonsil documented in this encounter Administered Medications Inactive Administered Medications - up to 3 most recent administrations Medication Order MAR Action Action Date Dose Rate Site gadoterate meglumine (Dotarem) Given 11/17/2021 2:32 PM EDT 18 m Ls (0.5 mMol/mL) injection solution 0-100 mL 0-100 mL, Intravenous, ONCE PRN, 1 dose, Starting on 8/22/22 at 1432, Until 11/17/21 at 1432, Per Protocol, Radiology Contrast, Routine documented in this encounter Care Teams Lease Purchase Truck Driver Relationship Specialty Start Date End Date Amelia Gomes APRN PCP - General Family Medicine 10/17/20 [address] [place] [address] documented as of this encounter
--- OUTSIDE RECORDS SUMMARY | 2022-01-24 03:58 | XMS_ITS | Encounter Summary ---
:1935 Author Organization [facility] [place] [address] Care Team Providers Name Role Phone Amelia Gomes APRN Primary Care Provider [phone] Encounter Details Date Type Department Care Team Description 11/24/2021 [facility] Tonsil cancer [address] HEMATOLOGY [place] [address] ONCOLOGY [phone] [place], [place] [address] (Wo rk) Social History Tobacco [...] Sign Reading Time Taken Comments Blood Pressure - - Pulse - - Temperature - - Respiratory Rate - - Oxygen Saturation - - Inhaled Oxygen Concentration - - Weight 87.6 kg (193 lb 3.2 oz) 11/24/2021 3:04 PM EDT Height - - Body Mass Index 27.72 11/11/2021 9:29 AM EDT documented in this encounter Progress Notes Gris Dawn RD - 11/24/2021 3:00 PM EDT [facility] Initial Assessment Patient Name: Pino Wong Diagnosis: Right metastatic tonsil cancer, 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 AK (actinic keratosis) L57.0 ??? SK (seborrheic keratosis) L82.1 ??? History of nonmelanoma skin cancer Z85.828 ??? Actinic keratosis L57.0 ??? Filiform wart B07.9 ??? 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 History of kidney stones Z87.442 ??? 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 Hypercholesterolemia E78.00 Estimated body mass index is 27.72 kg/m?? as calculated from the following: Height as of 11/11/21: 177.8 cm (5' 10). Weight as of this encounter: 87.6 kg (193 lb 3.2 oz). Wt Readings from Last 3 Encounters: 11/24/21 87.6 kg (193 lb 3.2 oz) 11/20/21 89.3 kg (196 lb 12.8 oz) 11/11/21 90.9 kg (200 lb 8 oz) 10/30/21 91.2 kg (201 lb) 10/09/21 90.7 kg (200 lb) 09/17/21 93.4 kg (206 lb) 03/04/11 95.3 kg (210 lb) 13# loss over the past 9 weeks (6.2% body weight). Patient believes some of this is due to wearing heavier clothes previously. Medications: Aspirin, tynelol prn, saw palmetto, krill oil, zocor, allopurinol Patient will start chemoradiation therapy soon (date TBD) 10/09 labs: BG 104, Creat 0.87 Nutrition Screen 11/26/2021 10/30/2021 Reason for assessment Unintentional weight loss;Symptom management;EN Teach;High risk diagnosis - Total MST Score - 0 Functional Status 11/26/2021 Appetite Reduced compared to usual intake Odynophagia Present Patient reports he is having some difficulty with painful swallowing and knows his PO intake has decreased some because of this. Certain spices, ketchup and garlic are painful to swallow. Food Insecurity Screening 10/30/2021 Within the past 12 months, the food you bought just didn't last and you didn't have money to get more. 1 Breakfast: Homemade muffin or cereal Lunch: 3 hot dogs, cookies Supper: chopsuey Snacks: Ice cream Beverages: OJ, pepsi, water Patient lives with his Angelina in [place]. He follows a regular diet but PO intake has decreased due to increasing pain with swallowing. He does not want to start using his feeding tube yet. Nutrition Support 11/26/2021 Are you receiving enteral, parenteral or venting support? Yes Select support type Enteral G/J tube: when was it placed? 11/13/2021 Pledget stays removed Yes How was it placed? IR Where was it placed? (facility and dept) [facility] Currently using tube? No Patient is flushing tube daily. He does not want to start feedings yet. Nutrition Diagnosis 11/26/2021 Problems Swallowing difficulty;Involuntary weight loss related to tonsil cancer with odynophagia at baseline as evidenced by 13# loss over the past 9 weeks(6.2% body weight). Estimated needs based on current weight of 87.6 [id number] kcals (25-30 kcal/kg) 88-132 g protein (1-1.5 g/kg) 1 ml/kcal Nutrition Intervention: * Reviewed feeding tube education and provided related handout. Recommend flushing with 60 ml BID. Discussed cleaning and caring for feeding tube. Dr. Sy loosened tube at insertion site as bumper was tight to skin. Placed flexi-track. * Reviewed role of dietitian in care team. * Encouraged PO intake to avoid further weight loss. Patient does not want to start using feeding tube yet but this may be warranted if weight is down again at next visit. Monitoring and Evaluation: Will follow up with Mr. Wong on 12/08 to re-evaluate. I have provided him with my card and contact information should he have any questions in the meantime. Thank you for this consult. Gris Dawn RD documented in this encounter Plan of Treatment Upcoming Encounters Date Type Specialty Care Team Description 01/26/2022 Infusion Hematology and Oncology 01/26/2022 Office Visit Hematology and Oncology Mirta Sy MD [facility] DR ONCOLOGY DEPT. [place], [place] [address] (Wo rk) 01/28/2022 Office Visit Radiation Oncology Chilango Michel MD [facility] RADIATION ONCOLO [place], [place] [address] (Wo rk) 01/29/2022 Infusion Hematology and Oncology 02/05/2022 Infusion Hematology and Oncology documented as of this encounter Visit Diagnoses Diagnosis Tonsil cancer Malignant neoplasm of tonsil documented in this encounter Care Teams Concession Attendant Relationship Specialty Start Date End Date Amelia Gomes APRN PCP - General Family Medicine 10/17/[address] [place] [address] documented as of this encounter
--- OUTSIDE RECORDS SUMMARY | 2022-01-24 03:58 | XMS_ITS | Encounter Summary ---
:1935 Author Organization [facility] [place] [address] Care Team Providers Name Role Phone Amelia Gomes Sarina CARLOS Primary Care Provider [phone] Encounter Details Date Type Department Care Team Description 10/28/2021 Orders Only Maxillofacial Surgery [place] [address] [place] [address] [phone] Social History Tobacco Use Types Packs/Day Years [...] Visit Hematology and Oncology Mirta Sy MD [facility] DR ONCOLOGY DEPT. [place], [place] [address] (Wo rk) 01/28/2022 Office Visit Radiation Oncology Chilango Michel MD [facility] RADIATION ONCOLO [place], [place] [address] (Wo rk) 01/29/2022 Infusion Hematology and Oncology 02/05/2022 Infusion Hematology and Oncology documented as of this encounter Visit Diagnoses Not on filedocumented in this encounter Care Teams Caramel Cutter Machine Relationship Specialty Start Date End Date Amelia Gomes APRN PCP - General Family Medicine 10/17/[address] [place] [address] documented as of this encounter
--- OUTSIDE RECORDS SUMMARY | 2022-01-24 03:58 | XMS_ITS | Encounter Summary ---
:1935 Author Organization [facility] [place] [address] Care Team Providers Name Role Phone MateoZaid simpsonAmeliamat Branch APRN Primary Care Provider [phone] Reason for Visit Consultation (Routine) - Closed Specialty Diagnoses / Procedures Referred By Contact Refer red To Contact Radiation Oncology Diagnoses Tonsil cancer Marito Michel MD [facility] Procedures Simulation for Radiation Therapy Planning [facility] [place] [address] [place] [address] Phone: Fax: Referral ID Status Reason Start Date Expiration Date Visits V isits Requested Authorized [id number] Closed Consult, 11/18/2021 11/18/2022 1 1 Test & Treat Encounter Details Date Type Department Care Team Description 11/20/2021 Ancillary Appointment Radiation Oncology at Valerie Michel [facility] [place] [address] RADIATION ONCOLOGY [phone] [place], [place] [address] Social History Tobacco Use Types [...] Sign Reading Time Taken Comments Blood Pressure 138/83 11/20/2021 10:26 AM EDT Pulse 81 11/20/2021 10:26 AM EDT Temperature 36.5 ??C (97.7 ??F) 11/20/2021 10:26 AM EDT Respiratory Rate - - Oxygen Saturation 95% 11/20/2021 10:26 AM EDT Inhaled Oxygen Concentration - - Weight 89.3 kg (196 lb 12.8 oz) 11/20/2021 10:24 AM Wit h shoes EDT Height - - Body Mass Index 28.24 11/11/2021 9:29 AM EDT documented in this encounter Progress Notes Kelsey Rocha RN - 11/20/2021 11:30 AM EDT Section of Radiation Oncology Contrast Information Safety Questions 1. Has the patient ever had an x-ray study before which involved injection of a contrast agent or x-ray dye? yes If yes, did the patient have any reaction to the injection? no If yes, please describe the reaction: N/A 2. Is the patient allergic to any foods, medicines, or other substances? yes Allergies Allergen Reactions ??? Tegaderm [Transparent Dressings] Rash Pt had port placed 11/13/21, tegaderm removed over site revealed skin break-down and blisters, Try sorbaview/ IV 3000 in future 3. Has the patient received any contrast within the past 24 hours? no 4. Does the patient have any procedures scheduled in the next 24 hours? no 5. Does the patient have a history of renal/kidney problems or kidney surgery? no 6. Does the patient have diabetes? no 7. Does the patient have high blood pressure? no 8. Is the patient currently being treated for gout? no 9. If the answer to any of the questions #5-8 was yes, has the patient had a creatinine level and eGFR drawn within the past 45 days? yes Lab Results Component Value Date CREATININE 0.87 10/09/2021 If no, when will it be drawn? N/A A creatinine less than or equal to 1.6 and a eGFR of 45 or greater OK to proceed with IV contrast. If the creatinine is greater than 1.6 and the eGFR is less than 45, consult with the ordering provider. If an eGFR is less than 30, IV contrast should not be administered and another contrast agent may beordered by the provider (Visipaque). 10. Is the patient currently taking any of the following medications? (Actoplus Met, Avandamet, Glucovance, Janumet, Jendadueto, Kombiglyze, Metaglip, PrandiMet, Glugophage, Glumetza, Riomet, Metformin) [x} No If yes, when was last dose taken? N/A 9. If patient is on any of the medications in question #10, consult with the ordering provider if the patient needs to stop the medication and if they will require further lab studies. documented in this encounter Plan of Treatment Upcoming Encounters Date Type Specialty Care Team Description 01/26/2022 Infusion Hematology and Oncology 01/26/2022 Office Visit Hematology and Oncology Mirta Sy MD [facility] ER DR ONCOLOGY DEPT. [place], [place] [address] (Wo rk) 01/28/2022 Office Visit Radiation Oncology Chilango Michel MD [facility] ER RADIATION ONCOLO [place]Y [place], [place] [address] (Wo rk) 01/29/2022 Infusion Hematology and Oncology 02/05/2022 Infusion Hematology and Oncology documented as of this encounter Visit Diagnoses Not on filedocumented in this encounter Care Teams Work Order Detailer Relationship Specialty Start Date End Date Amelia Gomes APRN PCP - General Family Medicine 10/17/[address] [place] [address] documented as of this encounter
--- OUTSIDE RECORDS SUMMARY | 2022-01-24 03:58 | XMS_ITS | Encounter Summary ---
:1935 Author Organization [facility] [place] [address] Care Team Providers Name Role Phone Amelia Gomes Sarina CARLOS Primary Care Provider [phone] Encounter Details Date Type Department Care Team Description 11/11/2021 Interpretation Only Radiology at [facility] Unkno wn [facility] Ce nter None [address] [place] [address] Social History Tobacco Use Types Packs/Day [...] Visit Hematology and Oncology Mirta Sy MD [facility] ONCOLOGY DEPT. [place], [place] [address] (Wo rk) 01/28/2022 Office Visit Radiation Oncology Chilango Michel MD [facility] RADIATION ONCOLO [place], [place] [address] (Wo rk) 01/29/2022 Infusion Hematology and Oncology 02/05/2022 Infusion Hematology and Oncology documented as of this encounter Procedures Procedure Name Priority Date/Time Associated Diagnosis Comme nts DH OR ENDOSCOPY Routine 11/11/2021 Results for this procedure are in the resu lts section. documented in this encounter Results DH OR Endoscopy (11/11/2021) Anatomical Region Laterality Modality Other Specimen (Source) Anatomical Location Collection Method / Collectio n Time Received Time / Laterality Volume 11/11/2021 Narrative 11/11/2021 12:00 AM EDT Photographs - Images Procedure Note Unknown - 11/11/2021Formatting of this n ote might be different from the original. Photographs - Images Unknown EA IMAGES documented in this encounter Visit Diagnoses Not on filedocumented in this encounter Care Teams Button Puncher Relationship Specialty Start Date End Date Amelia Gomes APRN PCP - General Family Medicine 10/17/[address] [place] [address] documented as of this encounter
--- OUTSIDE RECORDS SUMMARY | 2022-01-24 03:58 | XMS_ITS | Encounter Summary ---
:1935 Author Organization [facility] [place] [address] Care Team Providers Name Role Phone Amelia Gomes Sarina CAROLS Primary Care Provider [phone] Reason for Visit Diagnostic Test (Routine) - Closed Specialty Diagnoses / Procedures Referred By Contact Refer red To Contact Radiology Diagnoses Tonsil cancer Steve Kellogg PA [facility] Rad Nuclear Med Procedures NM PET CT Standard Plus Head and Neck [facility] [place] [address] [place] [address] Referral ID Status Reason Start Date Expiration Date Visits V isits Requested Authorized [id number] Closed Specialty 09/17/2021 03/19/2023 2 2 Service Requested Encounter Details Date Type Department Care Team Description 10/09/2021 Hospital Encounter Nuclear Medicine at [facility] ph, Mariam Morales [place] [facility] [place] [address] OTOLARYNGOLOGY DEPT. [phone] [place], [place] [address] (Wo rk) Social History Tobacco [...] route 0 07/02 (FLONASE) 50 daily. mcg/actuation Liguori, Suspension simvastatin (ZOCOR) 80 80MG, PO, Every [...] and Oncology Mirta Sy MD [facility] [place] [address] (Wo rk) 01/28/2022 Office Visit Radiation Oncology Chilango Michel MD [facility] RADIATION [place]EL [place], [place] [address] (Wo rk) 01/29/2022 Infusion Hematology and Oncology 02/05/2022 Infusion Hematology and Oncology documented as of this encounter Procedures Procedure Name Priority Date/Time Associated Diagnosis Comme nts NM PET CT STANDARD Routine 10/09/2021 9:36 AM Tonsil cancer Re sults for this PLUS HEAD AND NECK EDT procedure are in the results section. documented [...] who have questions please contact the health inpatient care manager rn that requested your imaging first. ? --------ORIGINAL REPORT -------- EXAMINATION: NM PET CT STANDARD PLUS HEA D AND NECK CLINICAL HISTORY: Head/neck cancer, stag ing New right tonsil cancer. ??Please assess for extent of disease, metastases. 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 ? Impressions 10/10/2021 10:57 AM EDT 1. ??FDG [...] who have questions please contact the health inpatient care manager rn that requested your imaging first. ? Narrative 10/10/2021 10:57 AM EDT EXAMINATION: NM PET CT STANDARD PLUS HEAD AND NECK CLINICAL HISTORY: Head/neck cancer, stag ing New right tonsil cancer. ??Please assess for extent of disease, metastases. 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 Jarett Cedillo MD IMG PET ORDERABLES documented in this encounter Visit Diagnoses Not on filedocumented in this encounter Care Teams System Validation Engineer Relationship Specialty Start Date End Date Amelia Gomes APRN PCP - General Family Medicine 10/17/[address] [place] [address] documented as of this encounter
--- OUTSIDE RECORDS SUMMARY | 2022-01-24 03:58 | XMS_ITS | Encounter Summary ---
:1935 Author Organization [facility] [place] [address] Care Team Providers Name Role Phone MateoZaid simpsonAmeliamat Branch APRN Primary Care Provider [phone] Encounter Details Date Type Department Care Team Description 09/23/2021 Hospital [place] [address] Social History Tobacco Use Types Packs/Day [...] route 0 07/02 (FLONASE) 50 daily. mcg/actuation Zebulon, Suspension simvastatin (ZOCOR) 80 80MG, PO, Every [...] Sy MD [facility] ONCOLOGY DEPT. [place], [place] [address] ( alondra) 01/28/2022 Office Visit Radiation Oncology Chilango Michel MD [facility] RADIATION [place], [place] [address] (Tomy cantu) 01/29/2022 Infusion Hematology and Oncology 02/05/2022 Infusion Hematology and Oncology documented as of this encounter Procedures Procedure Name Priority Date/Time Associated Diagnosis Comme [facility] SURGICAL PATHOLOGY Routine 09/23/2021 10:17 AM [place] for this REPORT EDT procedure are i n the results section. documented in this encounter Results Surgical Pathology Report (09/23/2021 10:17 AM EDT) Component Value Ref Test Analysis Performed At [facility] Range Method Time Signature Surgical [id number] ? Location: [facility] FAN Pathology EKNN Report The signing pathologist has (i) examined the relevant preparation(s) for the [facility] specimen(s) and (ii) rendered or confirmed the diagnosis(es) . HOSPITAL LABORATORY . ?Surgic al Pathology DIAGNOSIS CONSULTATION CASE Outside slide(s) labeled [id number], collection date 2. Tonsil, right, biopsies: Non-keratinizing squamous cell carcinoma, p16 positive (see Discussion) Electronically signed by: ?Rafael MUNOZ, Ana Kamara Verified: ??10/03/2021 13:08 ??Pathologist Performed at: ??-[facility] [place] Dept. of Pathology, [place], [place] DISCUSSION Per report, p16 immunostain shows diffuse positivity. SPECIMEN(S) SUBMITTED CONSULTATION CASE A - 1 slide(s) labeled [id number], collection date 08/28/2021. [id number] Report to: [facility] Surgical Pathology Department [facility], [facility], 2nd Floor [address] [place], [place] ??[address] CLINICAL INFORMATION PILLOW CLEANER SPECIMEN PROCESSING [facility] ([facility]) pathology slide(s) are reviewed. ??Refer to Diagnosis and Specimen Submitted for specific case infor jonelle. For the full text of the [facility] report(s) please refer t o Non- Documentation Pathology in the electronic health record (eDH). Specimen (Source) Anatomical Collection Method Collection Time Re ceived Time Location / / Volume Laterality 09/23/2021 10:17 AM EDT Jarett Cedillo MD PATHOLOGY/CYTOLOGY ORDERABLE S Performing Organization Address City/State/ZIP Code Phon [place] [address] documented in this encounter Visit Diagnoses Not on filedocumented in this encounter Care Teams Skin Care Instructor Relationship Specialty Start Date End Date Amelia Gomes APRN PCP - General Family Medicine 10/17/[address] [place] [address] documented as of this encounter
--- OUTSIDE RECORDS SUMMARY | 2022-01-24 03:58 | XMS_ITS | Encounter Summary ---
:1935 Author Organization [facility] [place] [address] Care Team Providers Name Role Phone MateocalvinAmelia APRN Primary Care Provider [phone] Encounter Details Date Type Department Care Team Description 11/24/2021 Notes Only Hematology and Oncology at Kale Sy MD [facility] Osorio [place] [address] [place] [address] [phone] (Wo rk) Social History Tobacco Use Types [...] [facility] DR ONCOLOGY DEPT. [place], [place] [address] (Wo rk) 01/28/2022 Office Visit Radiation Oncology Chilango Michel MD [facility] RADIATION ONCOLO [place], [place] [address] (Wo rk) 01/29/2022 Infusion Hematology and Oncology 02/05/2022 Infusion Hematology and Oncology documented as of this encounter Visit Diagnoses Diagnosis Tonsil cancer Malignant neoplasm of tonsil documented in this encounter Care Teams Rate Analyst Relationship Specialty Start Date End Date Amelia Gomes APRN PCP - General Family Medicine 10/17/20 [facility] [address] [facility] [place] [address] documented as of this encounter
--- OUTSIDE RECORDS SUMMARY | 2022-01-24 03:58 | XMS_ITS | Encounter Summary ---
:1935 Author Organization [facility] [place] [address] Care Team Providers Name Role Phone Mireya Amelia Branch APRN Primary Care Provider [phone] Encounter Details Date Type Department Care Team Description 10/08/2021 Telephone Otolaryngology at [facility] [place], [place] [address] Social History Tobacco Use Types Packs/Day [...] this encounter Miscellaneous Notes Telephone Encounter - Mariam Robertson - 10/08/2021 9:49 AM EDT Grace, from [place] called today asking if an order for creatine can be place the pt is coming in tomorrow for a CT And follow up with Dr Cedillo. Thank you documented in this encounter Plan of Treatment Upcoming Encounters Date Type Specialty Care Team Description 01/26/2022 Infusion Hematology and Oncology 01/26/2022 Office Visit Hematology and Oncology Mirta Sy MD [facility] DR ONCOLOGY DEPT. [place], [place] [address] (Wo rk) 01/28/2022 Office Visit Radiation Oncology Chilango Michel MD [facility] RADIATION ONCOLO [place], [place] [address] (Wo rk) 01/29/2022 Infusion Hematology and Oncology 02/05/2022 Infusion Hematology and Oncology documented as of this encounter Visit Diagnoses Not on filedocumented in this encounter Care Teams Computer Processing Scheduler Relationship Specialty Start Date End Date Amelia Gomes APRN PCP - General Family Medicine 10/17/[address] [place] [address] documented as of this encounter
--- OUTSIDE RECORDS SUMMARY | 2022-01-24 03:58 | XMS_ITS | Encounter Summary ---
:1935 Author Organization [facility] [place] [address] Care Team Providers Name Role Phone MireyaZaidAmeliamat Branch APRN Primary Care Provider [phone] Encounter Details Date Type Department Care Team Description 10/30/2021 Orders Only Radiology at [facility] Meera Sosa, [facility] [place] [address] [facility] [phone] RADIOLOGY DEPT [place], [place] [address] (Wo rk) Social History Tobacco [...] on file documented as of this encounter H&P Notes Meera Sosa PA - 10/30/2021 1:43 PM [...] of Present Illness: Per chart review, Pino Wong is a 86 y.o. male with PMH [...] mouth. ??? fluticasone propionate (FLONASE) 50 mcg/actuation Cisco, Suspension by Each Nare route daily. ??? [...] [facility] DR ONCOLOGY DEPT. [place], [place] [address] (Wo rk) 01/28/2022 Office Visit Radiation Oncology Chilango Michel MD [facility] RADIATION ONCOLO [place], [place] [address] (Wo rk) 01/29/2022 Infusion Hematology and Oncology 02/05/2022 Infusion Hematology and Oncology documented as of this encounter Visit Diagnoses Not on filedocumented in this encounter Care Teams Skin Care Specialist Relationship Specialty Start Date End Date Amelia Gomes APRN PCP - General Family Medicine 10/17/[address] [place] [address] documented as of this encounter
--- OUTSIDE RECORDS SUMMARY | 2022-01-24 03:58 | XMS_ITS | Encounter Summary ---
:1935 Author Organization [place] [address] Care Team Providers Name Role Phone Amelia Gomes Sarina CARLOS Primary Care Provider [phone] Encounter Details Date Type Department Care Team Description 11/20/2021 Office Visit Radiation Oncology at Valerie Michel MD Tonsil cancer [facility] Osorio [place] [address] [place] [address] [phone] (Wo rk) Social History Tobacco Use Types [...] documented as of this encounter Progress Notes Marito Michel MD - 11/20/2021 12:30 PM EDT Images from the original note were not included. 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 CT simulation was performed with the following parameters: Simulation for radiation therapy planning was performed in the radiation oncology department. The technical details of the simulation are available in the radiation oncology EMR ([employer]) upon request. IV Contrast Y Bolus N Bite Block N Adaptive N Notes: Start date TBD Procedure: Flexible laryngoscopy was performed. The right naris was anesthetized with aerosolized lidocaine, and the laryngoscope was passed without difficulty. The nasopharynx was visualized and was without masses or lesions. The oropharynx, larynx, and piriform sinuses were visualized. An exophytic mass involving the right tonsil, with extension to the base of tongue, was noted, without midline involvement. No involvement of the pyriform sinus was noted. No clear mass involving the left tonsil noted. The vocal cords apposed without difficulty. I was personally present/supervising for the critical portions of the procedure. MARITO MICHEL MD ??? [facility] [place] (NCI) [facility] ??? [employer] Commission on Cancer (ACS López) Accredited Cancer Program ??? [employer] (ACR) Accredited Radiation Oncology Program documented in this encounter Plan of Treatment Upcoming Encounters Date Type Specialty Care Team Description 01/26/2022 Infusion Hematology and Oncology 01/26/2022 Office Visit Hematology and Oncology Mirta Sy MD [facility] DR ONCOLOGY DEPT. [place], [place] [address] (Wo rk) 01/28/2022 Office Visit Radiation Oncology Chilango Michel MD [facility] RADIATION ONCOLO [place]Y [place], [place] 0[address] (Wo rk) 01/29/2022 Infusion Hematology and Oncology 02/05/2022 Infusion Hematology and Oncology documented as of this encounter Visit Diagnoses Diagnosis Tonsil cancer Malignant neoplasm of tonsil documented in this encounter Administered Medications Inactive Administered Medications - up to 3 most recent administrations Medication Order MAR Action Action Date Dose Rate Site heparin (pf) (porcine) (100 Given 11/20/2021 1:05 PM EDT 500 Uni ts units/mL) flush 5 mL syringe 500 Units 500 Units, Intravenous, ONCE PRN, Starting on Wed11/20/21 at 1301, Until Wed11/21/21 at 1158, Line Care, Routine lidocaine (Glydo) 2 % gel 11 mL Given 11/20/2021 1:01 PM EDT 11 mLs 11 mL, INTRA-URETHRAL, ONCE, 1 dose, On Wed11/20/21 at 1245, Routine lidocaine (Xylocaine) 4 % (40 mg/mL) mary lou ution Given 11/20/2021 1:01 PM EDT Topical (Top), ONCE PRN, Pain, Starting on Wed11/20/21 at 1226, 1 dose, Until Wed11/20/21 at 1301 sodium chloride 0.9 % (flush) (BD PosiFlush Given 11/20/2021 1:05 PM EDT 20 mLs Normal Saline 0.9) flush 10-20 mL 10-20 mL, Intravenous, EVERY 1 MIN PRN, Starting on Wed11/20/21 at 1301, Until 11/21/21 at 1158, Technician Trainee, Routine documented in this encounter Care Teams Carroting Machine Offbearer Relationship Specialty Start Date End Date Amelia Gomes APRN PCP - General Family Medicine 10/17/[address] [place] [address] documented as of this encounter
--- OUTSIDE RECORDS SUMMARY | 2022-01-24 03:58 | XMS_ITS | Encounter Summary ---
:1935 Author Organization [facility] [place] [address] Care Team Providers Name Role Phone MateoAmelia simpson Sarina CARLOS Primary Care Provider [phone] Reason for Referral Diagnostic Test (Routine) - Closed Specialty Diagnoses / Procedures Referred By Contact Refer red To Contact Radiology Diagnoses Tonsil cancer Kale Sy MD [facility] Interventionl Rad Procedures IR Biopsy Lymph Node (Head/Neck) IR FNA Thyroid Nodule [facility] [place] [address] [place] [address] Referral ID Status Reason Start Date Expiration Date Visits V isits Requested Authorized [id number] Closed Specialty 10/30/2021 05/02/2023 1 1 Service Requested Reason for Visit Diagnostic Test (Routine) - Closed Specialty Diagnoses / Procedures Referred By Contact Refer red To Contact Radiology Diagnoses Tonsil cancer Kale Sy MD [facility] Interventionl Rad Procedures IR Biopsy Lymph Node (Head/Neck) IR FNA Thyroid Nodule [facility] Sorto [facility] [place] [address] [place] [address] Referral ID Status Reason Start Date Expiration Date Visits V isits Requested Authorized [id number] Closed Specialty 10/30/2021 05/02/2023 1 1 Service Requested Encounter Details Date Type Department Care Team Description 11/05/2021 Hospital Encounter Radiology at [facility] Kale Sy MD Tonsil cancer [address] [place] [address] ONCOLOGY DEPT. [phone] [place], [place] [address] (Wo rk) Social History Tobacco [...] route 0 07/02 (FLONASE) 50 mcg/actuation daily. [place], Suspension simvastatin (ZOCOR) 80 mg 80MG, PO, Every 0 04/03 tablet other day allopurinol (ZYLOPRIM) 300 300mg, PO, QAM 0 04/03 mg tablet aspirin EC (Ecotrin Low Daily 0 01/09/2013 0 12/08/2021 Strength) 81 mg Tablet, Delayed Release (E.C.) documented as of this encounter Progress Notes Yandy Urban APRN - 11/05/2021 7:22 AM EDT Neuroradiology FOCUSED H&P and PRE-PROCEDURE NOTE: PCP: Amelia Gomes APRN Referring Provider: Kale Sy MD Planned Procedure: IR guided lymph node FNA Procedure Indication: Enlarged left level 2 cervical lymph node Procedure request received through Interventional Radiology eDH order queue. Order Questions Answers Where will study be performed? [facility] Radiology [120] Does this patient have any known bleeding risk factors or conditions that places them at higher riskfor a procedural hemorrhage? None Reason for exam and clinical history: tonsil cancer with known R neck adenopathy. Suspicious LEFT zone [address] and PET. Clinical information / knapp questions for radiologist: need to ascertain etiology of LEFT neck adenopathy Is the patient on anticoagulant / antiplatelet therapy ? No Presenting Diagnosis/ Complaint: Pino Wong is a 86 y.o. male with h/o tonsilar cancer with known right sided neck adenopathy now with FDG avid LEFT level 2 cervical lymph node, concerning for malignancy. Past Medical/Surgical History: Patient Active Problem List Diagnosis Code ??? AK (actinic keratosis) L57.0 ??? SK (seborrheic keratosis) L82.1 ??? History of nonmelanoma skin cancer Z85.828 ??? Actinic keratosis L57.0 ??? Filiform wart B07.9 ??? 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 History of kidney stones Z87.442 ??? 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 Hypercholesterolemia E78.00 Medications: Current Outpatient Medications on File Prior to Encounter Medication Sig Dispense Refill ??? acetaminophen (TYLENOL) 650 mg Tablet Sustained Release Take 650 mg by mouth every 8 hours as needed for Pain. Do not exceed 6 tabs in 24 hours ??? diclofenac (Voltaren) 1 % Gel Apply topically. ??? SAW PALMETTO ORAL Take by mouth. ??? KRILL OIL ORAL Take by mouth. ??? fluticasone propionate (FLONASE) 50 mcg/actuation [place], Suspension by Each Nare route daily. ??? simvastatin (ZOCOR) 80 mg tablet 80MG, PO, Every other day ??? allopurinol (ZYLOPRIM) 300 mg tablet 300mg, PO, QAM No current facility-administered medications on file prior to encounter. Allergies: Patient has no known allergies. Labs: None Imaging: CT soft tissue neck/PET 10/09/21 Physical Exam: Pending (to be performed in angio the day of procedure) ASA: Pending (to be assessed in angio the day of procedure) Mallampati Class: Pending (to be assessed in angio the day of procedure) Assessment: 86 y.o. male with FDG avid, enlarged left level 2 lymph node concerning for malignancy/metastatic disease Case and imaging reviewed with Dr. Chou Plan: - Will proceed with US guided lymph node FNA procedure - Labs to be obtained on day of procedure: None - Meds to hold: None - Position: Supine - Antibiotic prophylaxis: None - Sedation: Local - Consent: To be obtained on the day of the procedure Yandy Urban, NARINDER, BUSPERSON 11/05/2021 7:23 AM documented in this encounter Plan of Treatment Upcoming Encounters Date Type Specialty Care Team Description 01/26/2022 Infusion Hematology and Oncology 01/26/2022 Office Visit Hematology and Oncology Mirta Sy MD [facility] DR ONCOLOGY DEPT. [place], [place] [address] (Wo rk) 01/28/2022 Office Visit Radiation Oncology Chilango Michel MD [facility] RADIATION ONCSHANTEL [place], [place] [address] (Wo rk) 01/29/2022 Infusion Hematology and Oncology 02/05/2022 Infusion Hematology and Oncology documented as of this encounter Procedures Procedure Name Priority Date/Time Associated Comments Diagnosis IR BIOPSY LYMPH NODE Routine 11/05/2021 11:08 Tonsil cancer Re sults for this (HEAD/NECK) AM EDT procedure are i n the results section. NON-DRAFTER ASSISTANT FINAL REPORT Routine 11/05/2021 10:50 Res ults for this AM EDT procedure are i n the results section. CYTOPATHOLOGY Routine 11/05/2021 9:49 AM Results for this NON-GYNECOLOGICAL EDT procedure are in the results section. documented in this encounter Results IR Biopsy Lymph Node (Head/Neck) (11/05/2021 11:08 [...] questions please contact the health career services manager that requested your imaging first. ? Narrative [...] questions please contact the health career services manager that requested your imaging first. Kale Sy MD IMG IR ORDERABLES Non-V Belt Coverer Final Report (11/05/2021 10:50 AM EDT) Component Value Ref Test Analysis Performed At Patholo gist Range Method Time Signature Non-V Belt Coverer Final [id number] ? Location: [facility] [place] The signing pathologist has (i) examined the relevant preparation(s) for the [facility] specimen(s) and (ii) rendered or confirmed the diagnosis(es) . HOSPITAL [facility]ORY . ? No n-V Belt Coverer Final DIAGNOSIS Atypical Electronically signed by: ?Berna MUNOZ, Ry Kamara Verified: ??11/08/2021 14:44 ??Cytopathologist Performed at: ??-[facility] Dept. of Pathology, [place], [place] DISCUSSION Lymph node: left level 2 (US-guided FNA) - Very hypocellular aspirate. A small cluster of highly atypical epithelioid cells with hyperchromatic nuclei and h igh nuclear-cytoplasmic ratios is present in the liquid- based preparation. Malignancy is not excluded. Suggest consideration of a repeat aspirate if clinically ind icated. (Cell block was examined.) CLINICAL INFORMATION Specimen Source : Lymph node: left level 2 (US-guided FNA) Pertinent Clinical Data and Significant Therapy: Pt with h/o ??tonsillar ??ca ncer with known right sided neck adenopathy now with FDG avid left level 2 cervical lymph node, concerning for malignancy . Clinical Impression : FDG avid, enlarged left leve l 2 lymph node concerning for malignancy/metastatic disease. Pertinent Radiologic Findings ??: (not provided) Gross Description: Received ??in CytoLyt approx imately 30 mL total volume of ?? clear, colorless fluid, with light flecks. Total Preparation: Liquid-Based Prep 1; Cell Block 1. Specimen (Source) Anatomical Collection Method Collection Time Re ceived Time Location / / Volume Laterality 11/05/2021 10:50 AM EDT Kale Sy MD PATHOLOGY/CYTOLOGY ORDERABLE S Performing Organization Address City/State/ZIP [place] [address] Cytopathology Non-Gynecological (11/05/2021 9:49 AM EDT) Specimen Anatomical Collection Method Collection Time Receive d Time (Source) Location / / Volume Laterality AP Specimen 11/05/2021 9:49 AM 9:49 EDT AM EDT Narrative [facility] - 11/05/2021 9:49 AM EDT Specimen requisition ordered. ??Separate Pathology report to follow Kale Sy MD PATHOLOGY/CYTOLOGY ORDERABLE S Performing Organization Address City/State/[facility] [place] [place] [address] documented in this encounter Visit Diagnoses Diagnosis Tonsil cancer Malignant neoplasm of tonsil documented in this encounter Care Teams Tooth Inspector Relationship Specialty Start Date End Date Amelia Gomes APRN PCP - General Family Medicine 10/17/20 [address] [place] [address] documented as of this encounter
--- OUTSIDE RECORDS SUMMARY | 2022-01-24 03:58 | XMS_ITS | Encounter Summary ---
:1935 Author Organization [place] [address] Care Team Providers Name Role Phone MateoZaid simpsonAmeliamat Branch APRN Primary Care Provider [phone] Encounter Details Date Type Department Care Team Description 09/23/2021 External Results Medical Records Provider, [place] [address] Social History Tobacco Use Types Packs/Day [...] Visit Hematology and Oncology Mirta Sy MD [facility] DR ONCOLOGY DEPT. [place], [place] [address] (Wo rk) 01/28/2022 Office Visit Radiation Oncology Chilango Michel MD [facility] RADIATION ONCOLO [place], [place] [address] (Wo rk) 01/29/2022 Infusion Hematology and Oncology 02/05/2022 Infusion Hematology and Oncology documented as of this encounter Procedures Procedure Name Priority Date/Time Associated Diagnosis Comme nts SURGICAL PATHOLOGY Routine 09/23/2021 Results f or this SCAN procedure are i n the results section . documented in this encounter Results Scan Doc: Surgical Pathology (09/23/2021) Narrative This result has an attachment that is no t available. Jarett Cedillo MD MEDIA MGR SCAN EXT ORDR/RSLT documented in this encounter Visit Diagnoses Not on filedocumented in this encounter Care Teams Oyster Buyer Relationship Specialty Start Date End Date Amelia Gomes APRN PCP - General Family Medicine 10/17/[address] [place] [address] documented as of this encounter
--- OUTSIDE RECORDS SUMMARY | 2022-01-24 03:58 | XMS_ITS | Encounter Summary ---
:1935 Author Organization [facility] [address] Care Team Providers Name Role Phone Amelia Gomes Sarina ACRLOS Primary Care Provider [phone] Encounter Details Date Type Department Care Team Description 10/08/2021 Orders Only Otolaryngology at [facility] Josefina Mccracken, Tonsil cancer [facility] [place] [address] Social History Tobacco Use Types Packs/Day [...] Mirta Sy MD [facility] ONCOLOGY DEPT. [place], [place] [address] (Wo rk) 01/28/2022 Office Visit Radiation Oncology Chilango Michel MD [facility] RADIATION ONCOLO GY [place], [place] [address] (Wo rk) 01/29/2022 Infusion Hematology and Oncology 02/05/2022 Infusion Hematology and Oncology documented as of this encounter Results Creatinine (10/09/2021 10:19 AM EDT) athologist Signature Creatinine 0.87 0.80 - [place] 1.50 mg/dL [facility] Estimated GFR 85 >=60 [place] mL/min/1.[address] [facility] 3 m?? HOSPITAL LABORATORY Comment: This patient's estimated GFR was calcula eula using the 2020 CKD-EPI equation. The estimated GFR can vary from the odilia ured GFR by up to 30% in the absence of rapidly changing kidney function. Assess ment of the estimated GFR is not appropriate when creatinine concentratio ns are rapidly changing. For clinical situations in which a more precise estim ate of GFR is necessary, consider alternative methods of GFR estimation taylor ch as a 24-hour urine creatinine clearance. Assignment of CKD stage 1-5 for patients with an eGFR near the transition point between stages may be based on clinical assessment of muscle mass and symptoms in addition to eGFR. Specimen Anatomical Collection Method Collection Time Receive d Time (Source) Location / / Volume Laterality Blood 10/09/2021 10:19 10/09/2021 AM EDT 10:35 AM EDT Resulting Agency Comment Spec In Lab Jarett Cedillo MD CHEMISTRY ORDERABLES Performing Organization Address City/State/[place] [address] documented in this encounter Visit Diagnoses Diagnosis Tonsil cancer Malignant neoplasm of tonsil documented in this encounter Care Teams Supervisor Photoengraving Relationship Specialty Start Date End Date Amelia Gomes APRN PCP - General Family Medicine 10/17/[address] [place] [address] documented as of this encounter
--- OUTSIDE RECORDS SUMMARY | 2022-01-24 03:58 | XMS_ITS | Encounter Summary ---
:1935 Author Organization [facility] [place] [address] Care Team Providers Name Role Phone MateoZaid simpsonAmeliamat Branch APRN Primary Care Provider [phone] Encounter Details Date Type Department Care Team Description 10/09/2021 Laboratory Appointment Lab 3L [facility] [place] [address] Social History Tobacco Use Types Packs/Day [...] MD [facility] ONCOLOGY DEPT. [place], [place] [address] (Wo rk) 01/28/2022 Office Visit Radiation Oncology Chilango Michel MD [facility] RADIATION ONCOLO GY [place], [place] [address] (Wo rk) 01/29/2022 Infusion Hematology and Oncology 02/05/2022 Infusion Hematology and Oncology documented as of this encounter Procedures Procedure Name Priority Date/Time Associated Diagnosis Comme nts HC VENIPUNCTURE STAT 10/09/2021 10:19 AM Tonsil cancer Resu lts for this EDT procedure are i n the results section. documented in this encounter Results Creatinine (10/09/2021 10:19 AM EDT) P athologist Signature Creatinine 0.87 0.80 - [place] 1.50 mg/dL [facility] Estimated GFR 85 >=60 [place] mL/min/1.7 [facility] 3 [facility] LABORATORY Comment: This patient's estimated GFR was [...] Organization Address City/State/Z[place] [address] documented in this encounter Visit Diagnoses Diagnosis Tonsil cancer Malignant neoplasm of tonsil documented in this encounter Care Teams Stem Sizer Relationship Specialty Start Date End Date Amelia Gomes APRN PCP - General Family Medicine 10/17/[address] [place] [address] documented as of this encounter
--- OUTSIDE RECORDS SUMMARY | 2022-01-24 03:58 | XMS_ITS | Encounter Summary ---
:1935 Author Organization [facility] [address] Care Team Providers Name Role Phone MateoHayde simpsonleonarda Branch APRN Primary Care Provider [phone] Encounter Details Date Type Department Care Team Description 10/30/2021 Patient Outreach Hematology and Oncology Mary Lemus, at [facility] [place] [address] Social History Tobacco Use Types Packs/Day [...] documented as of this encounter Progress Notes Flaca Lemus RN - 11/03/2021 1:27 PM EDT [facility] Oncology Nurse Navigation Patient Intake & Care Plan Met with Pino Wong, who has a diagnosis of P16+ Tonsil SCCa, to assess for nurse navigation services. Present during this interview is spouse, Angelina. Reviewed Head & Neck symptoms, PMH, lifestyle choices, and dental care. Assessed for transportation, financial, social, and practical barriers to care. Concerns noted in Barriers/Interventions below. Review of symptoms by Dr. Sy. Describes mild discomfort; avoids spicy foods, as they can sting his throat. Denies weight loss. PMH positive for uric acid stones, HLD, hx of tonsillitis,skin cancerof ear, and s/p TURP. Never smoker, but raised with second-hand smoke. 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 Pino considers himself very physically active, tending and mowing his 16 acres. 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 Lined up for a trip to a car show 11/05-11/09; he attends every year and buys a lugo to sell parts. 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 Has recently discovered the joys of [employer] videos. Pino lives with Angelina and their dog. Each of them have a son; and they have close friends nearby. The couple's chief concern is the timing of starting treatment (perceived as delayed and drawn-out). They also have several questions about the HN005 trial. Both Pino and Angelina ask pertinent questions. Angelina helps Pino access health care info on the patient portal. Of note, Angelina has been a main caregiver for her mother, who had lymphoma. The couple has a home in [place], [place]; they normally leave [place] for [place] in the middle of December. They still hope to get there after [place] this year. We agree to table a discussion for referrals to [place] [facility] providers after patient completes treatment here in [place]. Outlined main ancillary services available to help support patient, including Social Work, Psycho Onc, Nutrition, BOOK COVERER, and PT. Reviewed general timeline of both non-surgical management and surgery withadjuvant treatment, emphasizing the importance of early dental extractions, if needed. Also discussed long-term follow-up schedule. If non-surgical or adjuvant treatment is needed, patient would [facility]. PLAN: ??? Referral to Healthcare Kiln Loader for consideration of grants, gas cards, etc. ??? Definitive chemoradiation (due to endophytic nature of tumor and relation of neck mass to the ICA). ??? Extraction of tooth coordinated during 11/11 EUA. ??? FNA of contralateral neck mass. ??? PEG and mediport to be coordinated in IR ??? Informed patient that Marilu wants an MRI prior to treatment start Nurse Navigator Barriers and Interventions Assessment Barriers Barriers 11/03/2021 Informational Educational/informational resources;Incomplete information (staging, images, test results) Practical Financial challenges Interventions Interventions 11/03/2021 Informational Literature/online resources;Supportive service referral/education Practical Social work Head and Neck Oncology Nurse Navigator is ANDREW Mcclelland, RN. documented in this encounter Plan of Treatment Upcoming Encounters Date Type Specialty Care Team Description 01/26/2022 Infusion Hematology and Oncology 01/26/2022 Office Visit Hematology and Oncology Mirta Sy MD [facility] ONCOLOGY DEPT. [place], [place] [address] (Wo rk) 01/28/2022 Office Visit Radiation Oncology Chilango Michel MD [facility] RADIATION ONCOLO [place], [place] [address] (Wo rk) 01/29/2022 Infusion Hematology and Oncology 02/05/2022 Infusion Hematology and Oncology documented as of this encounter Visit Diagnoses Not on filedocumented in this encounter Care Teams Customer Support Analyst Relationship Specialty Start Date End Date Amelia Gomes APRN PCP - General Family Medicine 10/17/[address] [place] [address] documented as of this encounter
--- OUTSIDE RECORDS SUMMARY | 2022-01-24 03:59 | XMS_ITS | Encounter Summary ---
:1935 Author Organization [facility] [place] [address] Care Team Providers Name Role Phone Geovanni Irwin MD Primary Care Provider Reason for Visit Reason Comments Skin Check Encounter Details Date Type Department Care Team Description 12/08/2017 Office Visit Dermatology at [facility] [place] (actinic keratosis); Eris Kirby MD SK (seborrheic keratosis); [address] [facility] Multiple benign nevi; [place] [address] [address] Dermatofibroma; [phone]-DERMATOLGY [place], [place] [address] Social History Tobacco Use Types [...] documented as of this encounter Progress Notes Meghana Rodríguez MD - 12/08/2017 1:15 PM EDT DERMATOLOGY ESTABLISHED PATIENT CLINIC NOTE Date of service: 12/08/2017 Pino Wong : 1935 Provider: Meghana Rodríguez MD Chief Complaint Patient presents with ??? Skin Check SKIN HISTORY: Left helix: BCC -s/p Mohs 2010 ?? 08/27/2015 Left upper arm, shave removal: BCC, nodular and superficial pattern, with pigment. - s/p ED&C 09/10/15 ?? Other: - Actinic keratoses - Seborrheic keratoses - Filiform wart?? - Dermal nevus - Dermatofibroma - History of tick bites HPI Pino Wong is a 82 y.o. year old male, established patient last seen by me on 08/05/2017. Heretoday for a full skin exam. Patient denies any significant changes in his health since his last visit. Patient reports a spot on his right superior helix, noticed 2-3 months ago, asymptomatic. He also mentions 2 spots on his left upper arm, noticed in the summer, asymptomatic. MEDS: Current Outpatient Prescriptions Medication Sig Dispense Refill ??? CIS Free Text Med - Aspirin ??? simvastatin (ZOCOR) 80 mg tablet 80MG, PO, Every other day ??? allopurinol (ZYLOPRIM) 300 mg tablet 300mg, PO, QAM No current facility-administered medications for this visit. ADR: No Known Allergies ROS General: feeling well Skin: denies other skin complaints EXAM General: NAD, pleasant, cooperative Skin: Patient was asked to disrobe to the level of their comfort. A total body skin exam except for areas covered by underwear was performed. This includes examination of the skin of the face, ears, neck, chest, axillae, left and right upper and lower extremities, hands and feet, abdomen, and except the areas covered by underwear were not examined. Significant skin findings: A. Right scapha x 1, right preauricular area x1, right zoroastrianism x1, left superior helix x 1: scaly irregular pink papules B. Back, legs, right dorsal hand, scalp: Brown papule/plaques with waxy stuck-on appearance. C. Back: Multiple, 0.3-0.5cm, medium-brown, evenly-pigmented macules and papules. All with regular pigment pattern on dermoscopy. No pigmented lesions suspicious for melanoma. D. Left lower leg: firm papule, centrally raised and sclerotic, with peripheral hyperpigmentation and dimpling with lateral pressure. E. Forearms, right lower leg: purple ecchymoses ASSESSMENT/PLAN: A. Actinic Keratosis -Discussed at length the natural history and etiology of actinic keratoses. -Discussed premalignent potential of these lesions. -Discussed treatment options for actinic keratoses including cryotherapy versus chemical treatment such as 5-FU or PDT. -Combined decision to treat actinic keratosis with LN2 in office today. Procedure Note: Procedure: Destruction of lesion(s) with cryotherapy. Number: 4 Location: as above Discussed procedure and expectations including risks (including risk of hypopigmentation) and benefits. Verbal consent obtained. Frozen with LN2, 15-30 second thaw time, TWICE. There were no complications; the patient tolerated the procedure well. Post-procedure expectations and wound care were reviewed. B. Seborrheic Keratosis (asymptomatic) - Etiology discussed - Patient reassured that benign in nature - Treatment of an asymptomatic seborrheic keratosis is considered a cosmetic procedure and is not covered by insurance. C. Benign appearing nevi - Discussed benign nature of lesion and provided reassurance - No treatment necessary at this time - Observe skin for change in color, size or character. Call if such occur D. Dermatofibroma - Benign/non-cancerous growth of dermal dendritic histiocyte cells, commonly arise at site of a minor injury and etiology is unknown, prognosis, treatment options if recurs and/or is symptomatic. -Return to clinic if recurs and patient would like removed. E. Actinic Purpura - Discussed etiology Follow up: Return to clinic in 8 months (July-August) for follow up and FSE, sooner if needed. Reminderplaced in system. Instructed to call with questions or concerns. I am documenting this encounter acting as the scribe for and in the presence of Dr. Rodríguez: ANNY GODFREY LPN and Unique Mckay I performed the above scribed service and agree with the accuracy of the documentation in this encounter. Meghana Rodríguez MD [facility] of Dermatology, Department of Surgery [facility] documented in this encounter Plan of Treatment Upcoming Encounters Date Type Specialty Care Team Description 01/26/2022 Infusion Hematology and Oncology 01/26/2022 Office Visit Hematology and Oncology Mirta Sy MD [facility] DR ONCOLOGY DEPT. [place], [place] [address] (Wo rk) 01/28/2022 Office Visit Radiation Oncology Chilango Michel MD [facility] RADIATION ONCOLO [place], [place] [address] (Wo rk) 01/29/2022 Infusion Hematology and Oncology 02/05/2022 Infusion Hematology and Oncology documented as of this encounter Visit Diagnoses Diagnosis [place] (actinic keratosis) Actinic keratosis SK (seborrheic keratosis) Other seborrheic keratosis Multiple benign nevi Benign neoplasm of skin, site unspecifie d Dermatofibroma Benign neoplasm of skin, site unspecifie d Purpura Other nonthrombocytopenic purpuras documented in this encounter Care Teams Note Taker Relationship Specialty Start Date End Date Geovanni Irwin MD PCP - General 12/09/10 10/16/[address] [place] [address] documented as of this encounter
--- OUTSIDE RECORDS SUMMARY | 2022-01-24 03:59 | XMS_ITS | Encounter Summary ---
:1935 Author Organization [facility] [place] [address] Care Team Providers Name Role Phone Amelia Gomes Sarina CARLOS Primary Care Provider [phone] Reason for Visit Reason Comments Skin Cancer Examination Encounter Details Date Type Department Care Team Description 10/17[facility]; Eris Kirby MD Seborrheic keratoses; [address] [facility] Epidermal inclusion cyst; [place] [address] History of basal cell carcinoma (BCC) [phone] [facility] [address]-DERMATOLGY [place], [place] [address] Social History Tobacco Use Types [...] encounter Progress Notes Rivka Rodríguez MD - 10/17/2020 4:30 PM EDT Images from the original note were not included. DEPARTMENT OF DERMATOLOGY Medical Dermatology Clinic Provider: RIVKA RODRÍGUEZ MD Preferred name Pino Preferred contact method for results [x] Phone (home) [] MyD-H [] Letter Permission to leave detailed message Yes Permission to discuss care with Angelina Past Medical History Date, location, treatment Melanoma N DN N SCC N BCC 02/12/11: Left helix, s/p Mohs 08/27/15: Left upper arm, s/p ED&C [place] Yes UV exposure & protection N Other relevant past medical history Filiform warts Family History Details Melanoma N NMSC N Other relevant family history N Social History Occupation: retired Other: Pre-Procedure Screening Details Allergy to lidocaine, epinephrine N Blood thinners: N Pacemaker, defibrillator N History of Present Illness: Pino Wong is a 85 y.o. Patient returns to clinic today for a full skin examination with the following concerns: - Lesion on the left superior helix and possibly on the right superior helix. - Lesion on the right flank. His thought it was a tick. - Lesion on the right posterior thigh. - Lesions on the right forearm. Last FSE: 08/15/2019 Last visit at [facility] Derm: 08/15/2019 Last visit with this provider: 08/15/2019 Medications: Reviewed in eD-H Allergies: Reviewed in [...] axillae, abdomen, back, and upper and lower extremities (except feet and ankles). Genitalia and buttocks were not examined. Assessment/Plan: A. Actinic Keratoses - Ill-defined gritty papules on the left superior helix x 1, right superior helix x 1, scalp x 1, left preauricular x 1. - Explained premalignant potential of these lesions. - Discussed treatment with cryotherapy. Patient elects to proceed with cryotherapy today. - Instructed patient to return to clinic for re-evaluation if lesion(s) does not resolve as expectedwith this treatment. Procedure: Destruction of lesion(s) with cryotherapy (LN2). Location(s): As noted above. Number: 4 Discussed procedure and expectations, including risks and benefits. Verbal consent obtained. Treatedwith LN2. There were no complications; Patient tolerated the procedure well. Post-procedure expectations and wound care reviewed. B. Epidermal Inclusion Cyst - Subcutaneous nodule on the left postauricular. - Discussed benign nature of lesion and provided reassurance. C. Seborrheic Keratoses - Stuck on, waxy papules on the trunk and extremities, including the left restorationism, right flank, right forearm, right elbow, and right posterior thigh. - Discussed benign nature of lesions and provided reassurance. No treatment necessary at this time. D. History of BCC - Well-healed scars per skin history. - No evidence of recurrence; will continue to monitor. Other: - N/A RTC: 1 year for FSE []Note routed to escrow secretary [x]Recall placed in scheduling system []Appointment scheduled before exiting Argenis Zaidi has performed the documentation for this encounter in the presence of and actingas a scribe for RIVKA RODRÍGUEZ MD. I performed the above scribed service and agree with the accuracy of the documentation in this encounter. Reviewed and signed by: RIVKA RODRÍGUEZ MD Dermatology [facility] documented in this encounter Plan of Treatment Upcoming Encounters Date Type Specialty Care Team Description 01/26/2022 Infusion Hematology and Oncology 01/26/2022 Office Visit Hematology and Oncology Mirta Sy MD [facility] DR ONCOLOGY DEPT. [place], [place] [address] (Wo rk) 01/28/2022 Office Visit Radiation Oncology Chilango Michel MD [facility] RADIATION ONCOLO [place], [place] [address] (Wo rk) 01/29/2022 Infusion Hematology and Oncology 02/05/2022 Infusion Hematology and Oncology documented as of this encounter Visit Diagnoses Diagnosis Actinic keratoses Actinic keratosis Seborrheic keratoses Epidermal inclusion cyst Sebaceous cyst History of basal cell carcinoma (BCC) documented in this encounter Care Teams Senior Stock Plan Administrator Relationship Specialty Start Date End Date Amelia Gomes APRN PCP - General Family Medicine 10/17/[address] [place] [address] documented as of this encounter
--- OUTSIDE RECORDS SUMMARY | 2022-01-24 03:59 | XMS_ITS | Encounter Summary ---
:1935 Author Organization [place] [address] Care Team Providers Name Role Phone Geovanni Irwin MD Primary Care Provider Reason for Visit Reason Comments Procedure Encounter Details Date Type Department Care Team Description 09/10/2015 Office Visit Dermatology at [facility] Meghana Rodríguez [place] (actinic keratosis); Eris Kirby MD Basal cell carcinoma [address] [place] [address] [facility]-DER[facility] [place], [place] [address] Social History Tobacco Use Types Packs/Day Years Used Date Never Smoker Financial Resource Strain Answer Date Recorded How [...] on file documented as of this encounter Patient Instructions Patient InstructionsAnny Godfrey LPN - 09/10/2015 4:30 PM EDT Treatment and Wound Care Instructions Your treatment today: You have had an Electrodessication and Curretage (ED&C) of your skin, which is a method to remove skin cancer. This wound will heal without stitches. Allow 3-6 weeks for the wound to heal. If bleeding occurs, hold firm pressure against the wound for 15 minutes. If bleeding continues, calls the office or go to your local emergency room. Wound Care Instructions: You will need to keep the dressing placed over the wound dry and intact for 24 hours. Afterwards, perform the following wound care daily: ?? Wash your hands before changing the dressing. ?? Remove the bandage and clean the area with mild soap and water, then gently pat the area dry. ?? Apply a small amount of Vaseline to the area, then cover the wound with a band-aid. Change your dressing daily until the wound is fully healed. ?? A small amount of yellow drainage is part of normal healing. The area might appear as a small depression with redness around the edge of the wound. This is normal. ?? Please contact the office you you notice any of the following signs of infection: increased tenderness, pain, drainage, or redness that becomes hot or hard around the wound. If you have further questions or concerns, please call the office at [phone]. If it is after 5PM, or a holiday or weekend, please call [phone] and ask for the Rag Collector on-call. documented in this encounter Progress Notes Meghana Rodríguez MD - 09/10/2015 3:51 PM EDT DERMATOLOGY ESTABLISHED PATIENT CLINIC NOTE Date of service: 09/10/2015 Pino Wong : 1935 Provider: Meghana Rodríguez MD Chief Complaint Patient presents with ??? Procedure SKIN HISTORY: History of actinic keratosis & seborrheic keratosis History of basal cell carcinoma, left helix 2010-MOH's -Scar 08/22/14 DIAGNOSIS Skin, left upper arm, shave removal: Basal cell carcinoma, nodular and superficial pattern, with pigment. (see Discussion). HPI Pino Wong is a 80 y.o. year old male, established patient last seen by me on 08/27/2015. Heretoday for a ED&C for a biopsy proven basal cell carcinoma on his left upper arm. Also notes rough spot on scalp resolved with LN2 ([place]) but spot on right helix is still rough. MEDS: Current Outpatient Prescriptions Medication Sig Dispense Refill ??? CIS Free Text Med - Aspirin ??? simvastatin (ZOCOR) 80 mg tablet 80MG, PO, Every other day ??? allopurinol (ZYLOPRIM) 300 mg tablet 300mg, PO, QAM No current facility-administered medications for this visit. ADR: No Known Allergies ROS General: feeling well Skin: denies other skin complaints EXAM General: NAD, pleasant, cooperative Skin: a focused skin examination was performed to the left upper arm. Significant skin findings: A. 1.1 cm healing biopsy site B. Right [place]: Heme crust at previously treated site of actinic keratosis ASSESSMENT/PLAN: A. Biopsy Proven Basal Cell Carcinoma -Discussed etiology and treatment options such as actively monitoring vs ED&C procedure -Combined decision to treat with ED&C, discussed procedure Procedure: Destruction of lesion. Site: Left Upper Arm. Discussed indications and expectations including risks and benefits. Verbal consent obtained. Skin prep. Local anesthesia: buffered 1% lidocaine with epinephrine. The entire lesion plus a small margin was treated by curettage and electrodesiccation. Post-curettage defect size: 1.6. No complications. Wound dressed. Expectations (including discomfort management) and wound care reviewed. B. Residual Actinic Keratosis Procedure Note: Procedure: Destruction of lesion(s) with cryotherapy. Number: 1 Location: as above Discussed procedure and expectations including risks (including risk of hypopigmentation) and benefits. Verbal consent obtained. Frozen with LN2, 15-30 second thaw time, TWICE. There were no complications; the patient tolerated the procedure well. Post-procedure expectations and wound care were reviewed. Follow up: 08/26/2016 as scheduled for a full skin examination, sooner if needed. Instructed to callwith questions or concerns. I am documenting this encounter acting as the scribe for and in the presence of Dr. Rodríguez: ANNY GODFREY LPN I performed the above scribed service and agree with the accuracy of the documentation in this encounter. Meghana Rodríguez MD Customer Relations Consultant of Dermatology, Department of Reimbursement RepCustomer Relations Consultantoutside sales manager (Dermatopathology) [facility] documented in this encounter Plan of Treatment Upcoming Encounters Date Type Specialty Care Team Description 01/26/2022 Infusion Hematology and Oncology 01/26/2022 Office Visit Hematology and Oncology Mirta Sy MD [facility] DR ONCOLOGY DEPT. [place], [place] [address] (Wo rk) 01/28/2022 Office Visit Radiation Oncology Chilango Michel MD [facility] RADIATION ONCOLO [place], [place] [address] (Wo rk) 01/29/2022 Infusion Hematology and Oncology 02/05/2022 Infusion Hematology and Oncology documented as of this encounter Visit Diagnoses Diagnosis [place] (actinic keratosis) Actinic keratosis Basal cell carcinoma Basal cell carcinoma of skin, site unspe cified documented in this encounter Care Teams Product Management Specialist Relationship Specialty Start Date End Date Geovanni Irwin MD PCP - General 12/09/10 10/16/[address] [place] [address] documented as of this encounter
--- OUTSIDE RECORDS SUMMARY | 2022-01-24 03:59 | XMS_ITS | Encounter Summary ---
:1935 Author Organization [facility] [place] [address] Care Team Providers Name Role Phone Geovanni Irwni MD Primary Care Provider Encounter Details Date Type Department Care Team Description 12/19/2018 [facility] [address] [facility] [place] [address] [facility]-DERMATOLOGY [phone] [place], [place] [address] (Wo rk) Social History Tobacco [...] documented as of this encounter Progress Notes Yemi Velasquez R - 12/19/2018 1:00 PM EDT Images from the original note were not included. DERMATOLOGY - ESTABLISHED PATIENT FOLLOW-UP Date of service: 12/19/2018 Pino Wong : 1935, 83 y.o. Chief Complaint: spot on cheek HPI: Pino Wong is a 83 y.o. male last seen by Meghana Rodríguez MD on 08/09/2018. Mr. Wong c/o a white spot on his left cheek that has been present for the past 3 - 4 months. Asymptomatic, but patient is concerned that the lesion may be a skin cancer. He has not noted any other new, growing, changing, bleeding, painful or otherwise symptomatic moles or other lesions. He has not noted any other changes in any preexisting lesions. SKIN HISTORY: Left helix: BCC -s/p??Mohs 2010 ?? 08/27/2015 Left upper arm, shave removal: BCC, nodular and superficial pattern, with pigment. - s/p ED&C 09/10/15 ?? Other: - Actinic keratoses - Seborrheic keratoses - Filiform wart?? - Dermal nevus - Dermatofibroma - History of tick bites ? Preferred name: Pino Preferred method of contact for results: Home Phone OK to leave detailed message including biopsy results?: Yes Medications: Current Outpatient Medications Medication Sig Dispense Refill ??? CIS Free Text Med - Aspirin ??? simvastatin (ZOCOR) 80 mg tablet 80MG, PO, Every other day ??? allopurinol (ZYLOPRIM) 300 mg tablet 300mg, PO, QAM No current facility-administered medications for this visit. Allergies: No Known Allergies Review of Systems: - General: Feels well. - Skin: No other skin concerns. Examination: - Constitutional: Patient was alert, well-appearing and in no noticeable distress. - Skin: Focused skin examination of the face was normal with the exception of the findings listed below. - A scribe was present and on standby during my examination. Diagnosis/Skin findings/Assessment/Plan: # Milium: Well defined white to yellow papule on the left cheek. - Counseled: Benign cysts. Usually self-resolve in months. -Treatment options including but not limited to OTC milia extractor, topical retinoids, or cosmetic removal in the office (often not covered by insurance) by milia extractor, incision and enucleation, cryotherapy, electrocautery. Answered all questions. - In order to confirm diagnosis, lesion was lanced with 11 blade and keratinaceous debri extruded confirming diagnosis. No charge for extraction as this was deemed diagnostic. RTC: July 2019 for a full skin exam or sooner as needed with Meghana Rodríguez MD or sooner as needed. Note initiated by GRIS COOPER LPN. Reviewed and signed by: Yemi Velasquez MD PhD Resident in Dermatology [facility] Patient seen and evaluated with staff synthetic department supervisor: Tejas Reynolds MD Section of Dermatology [facility] Tejas Reynolds MD - 12/19/2018 1:00 PM EDT I directly supervised Dr. Velasquez in the care of this patient. I saw and evaluated this patient with Dr. Velasquez. He presented the history and physical exam detailsto me, then we saw the patient together and I confirmed these findings. I agree with details as written. My physical examination confirms Dr. Velasquez's findings. The assessment and plan were formulated in discussion with me at the time of visit and I agree with them as documented. TEJAS REYNOLDS MD FAAD Staff Physician documented in this encounter Plan of Treatment Upcoming Encounters Date Type Specialty Care Team Description 01/26/2022 Infusion Hematology and Oncology 01/26/2022 Office Visit Hematology and Oncology Mirta Sy MD [facility] DR ONCOLOGY DEPT. [place], [place] [address] (Wo rk) 01/28/2022 Office Visit Radiation Oncology Chilango Michel MD [facility] RADIATION ONCOLO [place], [place] [address] (Wo rk) 01/29/2022 Infusion Hematology and Oncology 02/05/2022 Infusion Hematology and Oncology documented as of this encounter Visit Diagnoses Diagnosis Milia Sebaceous cyst documented in this encounter Care Teams Economic Specialist Relationship Specialty Start Date End Date Geovanni Irwin MD PCP - General 12/09/10 10/16/[address] [place] [address] documented as of this encounter
--- OUTSIDE RECORDS SUMMARY | 2022-01-24 03:59 | XMS_ITS | Encounter Summary ---
:1935 Author Organization [facility] [place] [address] Care Team Providers Name Role Phone Geovanni Irwin MD Primary Care Provider Reason for Visit Reason Comments Wound Check Encounter Details Date Type Department Care Team Description 03/11/2011 Clinical Support Dermatology Fercho Hogan BCC (basal cell [facility] HMD carcinoma of skin) [facility] (Primary Dx) [address] [phone] [facility] [place] [address] Social History Tobacco Use Types Packs/Day Years [...] documented as of this encounter Progress Notes Grady Padron RN - 03/11/2011 3:34 PM EST HPI: Patient is a 75 y.o. male is s/p Moh's micrographic surgery of basal cell carcinoma from the left helix, which was repaired by full thickness skin graft. The patient presents for suture removal. Denies complications. Exam: General: No acute distress Skin:Limited examination of postauricular area shows a well-healed donor site incision, limited examination of ear shows a well-healed graft . There is no erythema, dehiscence, ecchymosis, or drainage. Assessment and Plan 1. basal cell carcinoma left helix s/p Moh's micrographic surgery Sutures removed. Steri-strips applied. Wound care instructions given. Follow up with Dr. Hogan in 1 month. documented in this encounter Plan of Treatment Upcoming Encounters Date Type Specialty Care Team Description 01/26/2022 Infusion Hematology and Oncology 01/26/2022 Office Visit Hematology and Oncology Mirta Sy MD [facility] ONCOLOGY DEPT. [place], [place] [address] (Wo rk) 01/28/2022 Office Visit Radiation Oncology Chilango Michel MD [facility] RADIATION ONCOLO [place], [place] [address] (Wo rk) 01/29/2022 Infusion Hematology and Oncology 02/05/2022 Infusion Hematology and Oncology documented as of this encounter Visit Diagnoses Diagnosis BCC (basal cell carcinoma of skin) - Ciara robles Basal cell carcinoma of skin, site unspe cified documented in this encounter Care Teams Rack Puncher Relationship Specialty Start Date End Date Geovanni Irwin MD PCP - General 12/09/10 10/16/[address] [place] [address] documented as of this encounter
--- OUTSIDE RECORDS SUMMARY | 2022-01-24 03:59 | XMS_ITS | Encounter Summary ---
:1935 Author Organization [facility] [place] [address] Care Team Providers Name Role Phone Geovanni Irwin MD Primary Care Provider Reason for Visit Reason Comments Skin Lesion spot on ear Skin Check Encounter Details Date Type Department Care Team Description 12/23/2015 Office Visit Dermatology at [facility] Valle MD [facility] [place] [address] Seborrheic keratosis, inflamed (Primary Dx); Road Ericka Echavarria PA [facility] [place] [address] Actinic keratosis; [address] [place] [address] Social History Tobacco Use Types Packs/Day Years [...] as of this encounter Patient Instructions Patient InstructionsMakenna Cat LPN - 12/23/2015 10:30 AM EDT Liquid Nitrogen You were treated today with Liquid Nitrogen. Liquid nitrogen is extremely cold, and freezes the surface of the skin, causing the lesion to flake off. Treatment with liquid nitrogen can be uncomfortable, but discomfort should subside after a couple of hours. The area treated will look red and irritated, and it may blister up or turn dark, then fall off. This is normal! You do not need any special treatment for the area, but you may find cold compresses and/or a light application of Vaseline soothing. For best results, do not rub or pick at the healing lesion. Expected healing time is 3-4 weeks. Please contact the Dermatology clinic at [phone] if the lesion has not fully resolved after 6 weeks. documented in this encounter Progress Notes Ericka Echavarria PA - 12/23/2015 10:30 AM EDT DERMATOLOGY - ESTABLISHED PATIENT CLINIC NOTE Date of service: 12/23/2015 Pino Wong : 1935 Dermatology Physician It Support Technician Note: Ericka Echavarria PA-C (Bri) Chief Complaint Patient presents with ??? Skin Lesion spot on ear This is an established patient, last seen by Dr. Rodríguez on 09/10/2015 for ED&C of a biopsy provenBCC. This patient is new to me. HPI: Pino Wong presents for a lesion on the left upper ear that has been present for the past 3 months. It is tender if pressure is applied; denies any bleeding. While here, there is also a lesion by the left christianity that he would like to have removed as well as a lesion on back. Patient states that the lesion on the back is scaly. There is also a lesion on the right medial ankle that has been present for a while, but now has a red spot. He is unsure whether hemight have scratched it. Skin History: Actinic keratosis Basal cell carcinoma, left helix (Tara, 2011) ?? 08/22/14: Left upper arm, shave removal: Basal cell carcinoma, nodular and superficial pattern, withpigment. (ED&C, 09/10/2015) Medical History: No past medical history on file. No Defibrillator/pacemaker Yes Anti-coagulants: ASA Medications: Current Outpatient Prescriptions on File Prior to Visit Medication Sig Dispense Refill ??? CIS Free Text Med - Aspirin ??? simvastatin (ZOCOR) 80 mg tablet 80MG, PO, Every other day ??? allopurinol (ZYLOPRIM) 300 mg tablet 300mg, PO, QAM No current facility-administered medications on file prior to visit. Allergies: No Known Allergies Review of Systems: - General: Feels well. - Skin: As per HPI; no other skin concerns. Examination: - Constitutional: Patient was alert, well-appearing and in no noticeable distress. - Skin: A skin exam from the waist-up was performed. This includes examination of the skin of the face, ears, neck, chest, axillae, left and right upper extremities, hands, back, and abdomen. Patient'sright ankle was also examined. Specific skin findings: 1. Central lower back x 1, right ankle: Irritated warty stuck-on papule 2. Left christianity x 1: Verrucous papule with pin-point vascular pattern noted on dermoscopy 3. Left antihelix x 1: 0.2-0.3cm scaly irregular pink papule Diagnosis/Assessment/Treatment Plan: 1. Inflamed seborrheic keratosis - Etiology discussed - Patient reassured lesions are benign in nature - Discussed this condition with the patient and recommended treatment via LN2 due to irritation/inflammation. Patient is in agreement with this treatment plan: Procedure Note: Procedure: Destruction of lesion with cryotherapy. Number: 1 Location: Central lower back - Discussed procedure and expectations including risks (including risk of hypopigmentation) and benefits. Verbal consent obtained. Frozen with LN2, 15-30 second thaw time, TWICE. There were no complications; the patient tolerated the procedure well. Post-procedure expectations and wound care were reviewed. 2. Filiform wart - Patient reassured - Discussed this condition with the patient and recommended treatment via LN2. Patient is in agreement with this treatment plan: Procedure Note: Procedure: Destruction of lesion with cryotherapy. Number: 1 Location: as above - Discussed procedure and expectations including risks (including risk of hypopigmentation) and benefits. Verbal consent obtained. Frozen with LN2, 15-30 second thaw time, TWICE. There were no complications; the patient tolerated the procedure well. Post-procedure expectations and wound care were reviewed. 3. Actinic keratosis - Etiology discussed - Discussed premalignent potential of these lesions. Discussed that a surgical procedure would likely be needed if these were to progress to skin cancer. - Recommended treatment today via LN2. Patient is in agreement with this treatment plan: Procedure Note: Procedure: Destruction of lesion with cryotherapy. Number: 1 Location: as above - Discussed procedure and expectations including risks (including risk of hypopigmentation) and benefits. Verbal consent obtained. Frozen with LN2, 15-30 second thaw time, TWICE. There were no complications; the patient tolerated the procedure well. Post-procedure expectations and wound care were reviewed. - Advised to call if these lesions do not resolve as expected in 4-6 weeks. LOS: [id number] [facility] 08/26/2016 as previously scheduled for full skin exam with Dr. Rodríguez; rene SHEPPARD. Instructed tocall with questions/concerns. Patient verbally expressed understanding. I specifically asked the patient at the end of the visit if there were any further concerns or questions and the patient verbally stated there were no other concerns or questions. All questions were answered and all concerns were addressed. Note initiated by MAKENNA CAT LPN I am documenting this encounter acting as the scribe for and in the presence of Ericka Echavarria PA-C (Bri) I performed the above scribed service and agree with the accuracy of the documentation in this encounter. Reviewed and signed by Ericka Echavarria PA-C (Bri) Dermatology [facility] Patient seen in conjunction with staff physician: Gal Reynolds MD Section of Dermatology [facility] Gal Reynolds MD - 12/23/2015 10:30 AM EDT Examination Examination of the face, ears significant for the following: ?? Filliform [id number] sessile verrucous papule on the left christianity ?? [place], hyperkeratotic slightly irregular papules on the left antihelix [Total AK: 1] ?? Assessment and Plan Filiform Wart Favor filiform wart over SK. Recommend cryotherapy. Actinic Keratosis Risk for progression to SCCs. Recommend cryotherapy. Patient seen in conjunction with Florecita Echavarria PA-C. Gal Reynolds MD FAAD Section of Dermatology [facility] documented in this encounter Plan of Treatment Upcoming Encounters Date Type Specialty Care Team Description 01/26/2022 Infusion Hematology and Oncology 01/26/2022 Office Visit Hematology and Oncology Mirta Sy MD [facility] DR ONCOLOGY DEPT. [place], [place] [address] (Wo alondar) 01/28/2022 Office Visit Radiation Oncology Chilango Michel MD [facility] RADIATION ONCOLO [place], [place] [address] (Wo alondra) 01/29/2022 Infusion Hematology and Oncology 02/05/2022 Infusion Hematology and Oncology documented as of this encounter Visit Diagnoses Diagnosis Seborrheic keratosis, inflamed - Primary Inflamed seborrheic keratosis Actinic keratosis Filiform wart Other specified viral warts documented in this encounter Care Teams Electronics Department Manager Relationship Specialty Start Date End Date Geovanni Irwin MD PCP - General 12/09/10 10/16/[address] [place] [address] [address] [place] [address] documented as of this encounter
--- OUTSIDE RECORDS SUMMARY | 2022-01-24 03:59 | XMS_ITS | Encounter Summary ---
:1935 Author Organization [facility] [place] [address] Care Team Providers Name Role Phone Geovanni Irwin MD Primary Care Provider Reason for Visit Reason Comments Follow-up Focused Exam Encounter Details Date Type Department Care Team Description 09/08/2016 [facility] TMD keratosis [address] [place] [address] [facility] [place], [place] [address] Social History Tobacco Use Types [...] encounter Progress Notes Meghana Rodríguez MD - 09/08/2016 8:30 AM EDT DERMATOLOGY ESTABLISHED PATIENT CLINIC NOTE Date of service: 09/08/2016 Pino Wong : 1935 Provider: Meghana Rodríguez MD Chief Complaint Patient presents with ??? Follow-up Focused Exam SKIN HISTORY: Actinic keratosis Basal cell carcinoma, left helix (Mohs, 2011) wart?? 08/27/15: Left upper arm, shave removal: Basal cell carcinoma, nodular and superficial pattern, withpigment. (ED&C, 09/10/2015) HPI Pino Wong is a 81 y.o. year old male, established patient last seen by me on 08/04/2016. Here today for a focused exam, to recheck an area located on the Right dorsal wrist. This was treated withLN2 at his last visit. Patient reports the area has resolved. MEDS: Current Outpatient Prescriptions Medication Sig Dispense Refill ??? CIS Free Text Med - Aspirin ??? simvastatin (ZOCOR) 80 mg tablet 80MG, PO, Every other day ??? allopurinol (ZYLOPRIM) 300 mg tablet 300mg, PO, QAM No current facility-administered medications for this visit. ADR: No Known Allergies ROS General: feeling well Skin: denies other skin complaints EXAM General: NAD, pleasant, cooperative Skin: A focused exam of the right wrist, and bilateral ears was performed. Significant skin findings: A. Right dorsal wrist: Clear skin on exam B. Right superior helix: clear skin on exam ASSESSMENT/PLAN: A. Resolved HAK - No further treatment necessary at this time B. Resolved actinic keratosis - No further treatment necessary at this time Follow up: July 2017 for a full skin exam, sooner if needed. Reminder placed for scheduling. Instructed to call with questions or concerns. I am documenting this encounter acting as the scribe for and in the presence of Dr. Rodríguez: ANNY GODFREY, HAND POLISHER and Ines Noble, Clinical Scribe I performed the above scribed service and agree with the accuracy of the documentation in this encounter. Meghana Rodríguez MD Rn Private Duty of Dermatology, Department of Beef FarmerRn Private Dutychef saucier (Dermatopathology) [facility] documented in this encounter Plan of Treatment Upcoming Encounters Date Type Specialty Care Team Description 01/26/2022 Infusion Hematology and Oncology 01/26/2022 Office Visit Hematology and Oncology Mirta Sy MD [facility] DR ONCOLOGY DEPT. [place], [place] [address] (Wo rk) 01/28/2022 Office Visit Radiation Oncology Chilango Michel MD [facility] RADIATION ONCOLO [place], [place] [address] (Wo rk) 01/29/2022 Infusion Hematology and Oncology 02/05/2022 Infusion Hematology and Oncology documented as of this encounter Visit Diagnoses Diagnosis History of actinic keratosis Personal history of diseases of skin and subcutaneous tissue documented in this encounter Care Teams Sales Support Administrator Relationship Specialty Start Date End Date Geovanni Irwin MD PCP - General 12/09/10 10/16/[address] [place] [address] documented as of this encounter
--- OUTSIDE RECORDS SUMMARY | 2022-01-24 03:59 | XMS_ITS | Encounter Summary ---
:1935 Author Organization [facility] [place] [address] Care Team Providers Name Role Phone Geovanni Irwin MD Primary Care Provider Reason for Visit Reason Comments Skin Cancer Examination Encounter Details Date Type Department Care Team Description 08/15/2019 Office Visit Dermatology at [facility] Meghana Rodríguez [place] (actinic keratosis); Eris Kirby MD Verrucous keratosis; [address] [facility] [place] (seborrheic keratosis); [place] [address] Dermatofibroma; [phone] [facility] Dermal nevus; RD-DERMATOLGY History of basal cell carcinoma (BCC) [place], [place] [address] Social History Tobacco Use Types [...] as of this encounter Patient Instructions Patient InstructionsDelia Viramontes, [facility] - 08/15/2019 3:00 PM EDT Actinic Keratoses Diagnosis: You have been diagnosed today with an actinic keratosis. These dry, scaly patches are considered theearliest stage in the development of skin cancer. A significant percentage of actinic keratoses develop into squamous cell carcinoma skin cancer; estimates range from 10-20% over a 10-year period. Because of this risk, actinic keratoses are usually treated. Treatment: You were treated today with liquid nitrogen. This is the most common treatment for actinic keratoses. Liquid nitrogen is extremely cold and freezes the surface of the skin, causing the lesion to flake off. This treatment can be uncomfortable but discomfort should subside after a couple of hours. The area treated will look red and irritated, and it may blister up or turn dark, then fall off. This is normal. Wound care: You do not need any special treatment for the area, but you may find cold compresses and/or a light application of Vaseline soothing. For best results, do not rub or pick at the healing lesion. Expected healing time is 3-4 weeks. Please contact the clinic if the lesion has not fully resolved after 6 weeks. Prevention: Long-term exposure to the sun is the single most significant cause of actinic keratoses, so the bestdefense against them is a comprehensive sun protection program. This includes wearing protective clothing and a wide-brimmed hat, avoiding the sun at midday when ultraviolet rays are strongest, stayingin the shade as much as possible, and wearing a broad-spectrum sunscreen with a sun protection factor (SPF) of at least 30. Contact information: On weekdays (8am to 5pm), please call the clinic at [phone]. After 5pm, and on weekends and holidays, please call the hospital at [phone] and ask for the Washroom Cleaner Team Member. documented in this encounter Progress Notes Meghana Rodríguez MD - 08/15/2019 3:00 PM EDT DERMATOLOGY ESTABLISHED PATIENT CLINIC NOTE Date of Service: 08/15/2019 Pino Wong : 1935 Provider: Meghana Rodríguez MD Chief Complaint Patient presents with ??? Skin Cancer Examination SKIN HX Personal History Y/N Date, location, treatment Melanoma No DN No SCC No BCC Yes 02/12/11: Left helix, s/p Mohs 08/27/15: Left upper arm, s/p ED&C [place] or field cancerization therapy Yes 5FU/Carac: PDT: nicotinamide: [] Yes [] No Immunosuppression or malignancy No Blistering sunburns or tanning bed use No Other (i.e., eczema, psoriasis) Yes Filiform warts Family History Y/N Parents, siblings, children Melanoma No NMSC No Other No Patient Preferences Preferred name Pino Preferred contact method [x] Home [] Cell [] myD-H [] Other: Permission to leave detailed message including results [x] Yes [] No Permission to discuss care with (Angelina) Preferred pharmacy [facility] in [place], [place] Procedure Screening Questions Y/N Allergies to lidocaine or epinephrine No Blood thinners No Pacemaker or defibrillator No HPI Pino Wong is a 84 y.o. male, established patient last seen by me on 12/19/2018. Here today for a full skin exam with the following concerns: - New lesions on the forehead, left upper arm, and right dorsal hand; asymptomatic - Raised, asymptomatic lesions scattered on the bilateral arms, present for many years Last FSE: 08/09/18 MEDS Current Outpatient Medications Medication Sig Dispense Refill ??? CIS Free Text Med - Aspirin ??? simvastatin (ZOCOR) 80 mg tablet 80MG, PO, Every other day ??? allopurinol (ZYLOPRIM) 300 mg tablet 300mg, PO, QAM No current facility-administered medications for this visit. ADR No Known Allergies ROS General: Feeling well Skin: Denies other skin complaints EXAM General: NAD, pleasant, cooperative Skin: Patient was asked to undress to the level of his comfort. Verbalized that the provider's preference is for the patient to remove all clothing and that the provider will not examine areas patient elects to keep covered. Patient's decision was to keep underwear on and have the following examined: skin of the scalp, hair, face, ears, neck, chest, abdomen, back, axillae, upper and lower extremities, hands, and feet. Buttocks and genitalia were not examined. Areas under face mask not examined (COVID-19). Significant Skin Findings: A. Forehead x 1, right dorsal hand x 1, left dorsal hand x 1: 0.2-0.3 cm scaly irregular pink papules. [Total: 3] B. Left upper arm: Verrucous papule with waxy stuck-on appearance. C. Trunk and extremities: Brown papules/plaques with waxy stuck-on appearance. Not symptomatic. D. Left leg: Firm papule, centrally raised and sclerotic, with peripheral hyperpigmentation and dimpling with lateral pressure. E. Right gluteal cleft: [place], fleshy papule. F. Left helix, left upper arm: Well-healed hypopigmented scar per skin history. ASSESSMENT/PLAN A. Actinic Keratoses - Explained etiology, natural history and premalignant potential of these lesions. - Discussed treatment with cryotherapy, including the risks and benefits. - Patient elects to proceed with cryotherapy today. Procedure: Destruction of lesion(s) with cryotherapy (LN2). Location(s): As noted above. Number: 3 Discussed procedure and expectations, including risks (especially hypopigmentation) and benefits. Verbal consent obtained. Frozen with LN2, 15-30 second thaw time, twice. There were no complications; patient tolerated the procedure well. Post-procedure expectations and wound care reviewed. - Instructed patient to return to clinic for re-evaluation if lesion(s) does not resolve with this treatment. B. Verrucous Keratosis - Discussed removal with liquid nitrogen. Discussed risk of hypopigmentation and discomfort, alternatives, and reviewed wound care. - Patient agreed to treat with cryotherapy today. ?? Procedure: Destruction of lesions with cryotherapy (LN2). Number: 1 Location: As noted above Discussed procedure and expectations including risks (including risk of hypopigmentation) and benefits. Verbal consent obtained. Frozen with LN2, 15-30 second thaw time, twice. There were no complications; the patient tolerated the procedure well. Post-procedure expectations and wound care were reviewed. C. Seborrheic Keratoses - Etiology discussed. - Patient reassured that benign in nature. D. Dermatofibroma - Discussed benign nature of lesion and provided reassurance. No treatment necessary. E. Dermal Nevus - Discussed benign nature of lesion and provided reassurance. No treatment necessary at this time. F. H/O BCC - NER; will continue to monitor. Follow Up: RTC in 1 year for: [x] FSE [] Follow up [x] Reminder placed in system [] Appointment scheduled before exiting Note initiated by: SUDHIR Jewell I am documenting this encounter acting as the scribe for and in the presence of Dr. Rodríguez: Unique Mckay I performed the above scribed service and agree with the accuracy of the documentation in this encounter. Meghana Rodríguez MD Band And Cuff Cutter of Dermatology Department of Surgery [facility] cc: Geovanni Irwin MD documented in this encounter Plan of Treatment Upcoming Encounters Date Type Specialty Care Team Description 01/26/2022 Infusion Hematology and Oncology 01/26/2022 Office Visit Hematology and Oncology Mirta Sy MD [facility] ONCOLOGY DEPT. [place], [place] [address] (Wo rk) 01/28/2022 Office Visit Radiation Oncology Chilango Michel MD [facility] RADIATION ONCOLO [place], [place] [address] (Wo rk) 01/29/2022 Infusion Hematology and Oncology 02/05/2022 Infusion Hematology and Oncology documented as of this encounter Visit Diagnoses Diagnosis [place] (actinic keratosis) Actinic keratosis Verrucous keratosis Other specified dermatoses SK (seborrheic keratosis) Other seborrheic keratosis Dermatofibroma Benign neoplasm of skin, site unspecifie d Dermal nevus Benign neoplasm of skin, site unspecifie d History of basal cell carcinoma (BCC) documented in this encounter Care Teams Supervisor Blood Relationship Specialty Start Date End Date Geovanni Irwin MD PCP - General 12/09/10 10/16/[address] [place] [address] documented as of this encounter
--- OUTSIDE RECORDS SUMMARY | 2022-01-24 03:59 | XMS_ITS | Encounter Summary ---
:1935 Author Organization [facility] Address [facility] [place] [address] Care Team Providers Name Role Phone Geovanni Irwin MD Primary Care Provider Reason for Visit Reason Onset Date Comments Results 02/16/2011 Encounter Details Date Type Department Care Team Description 02/16/2011 Telephone Dermatology Meghana Rodríguez MD Results [facility] [place] [address] [facility] [address]-DER[address] [phone] [place], [place] [address] (Wo rk) Social History Tobacco Use Types Packs/Day Years Used Date Never Assessed Financial Resource Strain Answer Date Recorded How [...] this encounter Miscellaneous Notes Telephone Encounter - Meghana Ledezma MD - 02/16/2011 8:42 AM EST Called pt, discussed dx, BCC - needs Mohs. documented in this encounter Plan of Treatment Upcoming Encounters Date Type Specialty Care Team Description 01/26/2022 Infusion Hematology and Oncology 01/26/2022 Office Visit Hematology and Oncology Mirta Sy MD [facility] DR ONCOLOGY DEPT. [place], [place] [address] (Wo rk) 01/28/2022 Office Visit Radiation Oncology Chilango Michel MD [facility] RADIATION ONCOLO [place], [place] [address] (Wo rk) 01/29/2022 Infusion Hematology and Oncology 02/05/2022 Infusion Hematology and Oncology documented as of this encounter Visit Diagnoses Not on filedocumented in this encounter Care Teams Auto Accessories Installer Relationship Specialty Start Date End Date Geovanni Irwin MD PCP - General 12/09/10 10/16/[address] [place] [address] documented as of this encounter
--- OUTSIDE RECORDS SUMMARY | 2022-01-24 03:59 | XMS_ITS | Encounter Summary ---
:1935 Author Organization [facility] Address [address] [place] [address] Care Team Providers Name Role Phone Geovanni Irwin MD Primary Care Provider Reason for Visit Reason Comments Skin Check Encounter Details Date Type Department Care Team Description 08/04[facility]2016 [facility] Eris Kirby MD AK (actinic keratosis); [address] [facility] History of basal cell cancer ; [place] [address] Multiple benign nevi; [phone] [facility] [address] [place], [place] [address] Social History Tobacco Use Types [...] as of this encounter Patient Instructions Patient InstructionsInes oNble - 08/04/2016 3:30 PM EDT Actinic Keratoses You have been diagnosed today with Actinic Keratosis (AK). These dry, scaly patches are considered the earliest stage in the development of skin cancer. In rare cases, an AK can progress to skin cancer. Because of this risk, AKs are usually treated. You were treated today with Liquid Nitrogen. This is the most common treatment for AKs. Liquid nitrogen is extremely cold, and freezes [...] weeks. Please contact the Dermatology clinic at [phone] if the lesion has not fully resolved after 6 weeks. If you are calling after hours, please call the mainline at [phone] and ask for the k 9 handler/ deputy site damage prevention technician. documented in this encounter Progress Notes Meghana Rodríguez MD - 08/04/2016 3:30 PM EDT Images from the original note were not included. DERMATOLOGY ESTABLISHED PATIENT CLINIC NOTE Date of service: 08/04/2016 Pino Wong : 1935 Provider: Meghana Rodríguez MD Chief Complaint Patient presents with ??? Skin Check SKIN HISTORY: Actinic keratosis Basal cell carcinoma, left helix (Mohs, 2010) wart?? 08/27/15: Left upper arm, shave removal: Basal cell carcinoma, nodular and superficial pattern, withpigment. (ED&C, 09/10/2015) HPI Pino Wong is a 81 y.o. year old male, established patient last seen by Dr. Reynolds on 12/23/2015. Here today for a full skin exam. Patient mentions he has a scaly spot on the right wrist. Onset several weeks ago. Lesion is asymptomatic; patient denies associated pruritus, burning sensation, tenderness, pain, or spontaneous bleeding. MEDS: Current Outpatient Prescriptions Medication Sig Dispense [...] pleasant, cooperative Skin: Patient was asked to dress to their comfort level for today's exam. A total body skin exam except for areas covered by underwear and socks was performed. This includes examination of the skin of the face, ears, neck, chest, axillae, left and right upper and lower extremities, hands, back, and abdomen. The areas covered by underwear, shoes and socks were not examined. Significant skin findings: A. Right dorsal wrist x 1: Scaly tender but non indurated papule Total: 1 Verbal consent was given today to obtain and chart today's photos. Photos taken by Ines Noble Clinical Scribe. B. Right superior helix x 1: 0.2-0.3cm scaly irregular pink papules Total: 1 C. Torso and extremities including the back: 0.4-0.6 cm pink-brown papules/plaque with waxy stuck onappearance. D. Chest and abdomen: Multiple, medium-brown, evenly-pigmented macules and papules. All with regularpigment pattern on dermoscopy. No pigmented lesions suspicious for melanoma. E. Left calf: firm papule, centrally raised and sclerotic, with peripheral hyperpigmentation and dimpling with lateral pressure. F. Well-healed hypopigmented scars at sites above, no signs of recurrence ASSESSMENT/PLAN: A. Hypertrophic Actinic keratosis Procedure Note: Procedure: Destruction of lesion with cryotherapy. Number: 1 Location: as above Discussed procedure and expectations including risks (including risk of hypopigmentation) and benefits. Verbal consent obtained. Frozen with LN2, 15-30 second thaw time, TWICE. There were no complications; the patient tolerated the procedure well. Post-procedure expectations and wound care were reviewed. - Patient instructed to return to clinic for re-evaluation if lesion does not resolve with this treatment; as expected for a biopsy in 4-6 weeks. - Recheck in 4-6 weeks. B. Actinic Keratoses Discussed premalignant potential of lesions with patient and counseled that destruction with liquid nitrogen therapy is recommended. Patient agreed to the procedure after discussing risks/benefits/alternatives of the procedure, including hypopigmentation and discomfort. Wound care reviewed. Procedure Note: Procedure: Destruction of lesion with cryotherapy. Number: 1 Location: as above Discussed procedure and expectations including risks (including risk of hypopigmentation) and benefits. Verbal consent obtained. Frozen with LN2, 15-30 second thaw time, TWICE. There were no complications; the patient tolerated the procedure well. Post-procedure expectations and wound care were reviewed. C. Seborrheic keratoses - Discussed benign nature of lesion and provided reassurance. No treatment necessary at this time. D. Benign appearing nevi, patient reassured - Patient instructed to return to clinic for re-evaluation of area if notes change, growth, bleeding, etc. - Advised to watch for anything new or changing. E. Dermatofibroma (DF) - Discussed benign nature of lesion and provided reassurance. No treatment necessary at this time. F. H/O BCC, NER - Will continue to monitor Follow up: Return to clinic in 4-6 weeks to recheck A, or sooner if needed. Patient scheduled upon exiting. Patient instructed to call with questions or concerns. Follow up: Return to clinic in 1 year for full skin exam, or sooner if needed. A reminder letter will be sent to schedule. Patient instructed to call with questions or concerns. I am documenting this encounter acting as the scribe for and in the presence of Dr. Rodríguez: Lizette Hodges, INVESTMENT SPECIALIST and Ines Noble, Clinical Scribe I performed the above scribed service and agree with the accuracy of the documentation in this encounter. Meghana Rodríguez MD Governor Assembler Hydraulic of Dermatology, Department of Mushroom LaborerGovernor Assembler Hydraulicsales and service advisor (Dermatopathology) [facility] documented in this encounter Plan of Treatment Upcoming Encounters Date Type Specialty Care Team Description 01/26/2022 Infusion Hematology and Oncology 01/26/2022 Office Visit Hematology and Oncology Mirta Sy MD [facility] DR ONCOLOGY DEPT. [place], [place] [address] (Wo rk) 01/28/2022 Office Visit Radiation Oncology Chilango Michel MD [facility] RADIATION ONCOLO [place], [place] [address] (Wo rk) 01/29/2022 Infusion Hematology and Oncology 02/05/2022 Infusion Hematology and Oncology documented as of this encounter Visit Diagnoses Diagnosis Dermatofibroma Benign neoplasm of skin, site unspecifie d AK (actinic keratosis) Actinic keratosis History of basal cell cancer Personal history of other malignant neop lasm of skin Multiple benign nevi Benign neoplasm of skin, site unspecifie d Seborrheic keratosis Other seborrheic keratosis documented in this encounter Care Teams Home And School Visitor Relationship Specialty Start Date End Date Geovanni Irwin MD PCP - General 12/09/10 10/16/[address] [place] [address] documented as of this encounter
--- OUTSIDE RECORDS SUMMARY | 2022-01-24 03:59 | XMS_ITS | Encounter Summary ---
:1935 Author Organization [facility] [place] [address] Care Team Providers Name Role Phone Geovanni Irwin MD Primary Care Provider Reason for Visit Reason Comments Skin Check Encounter Details Date Type Department Care Team Description 02/02/2012 Follow-Up Dermatology Zeke Pulido History of skin cancer (Prim rosanna Dx); [facility] MD [place] AK (actinic keratosis); Drive [facility] SK (seborrheic keratosis) [place] [address] DERMATOLOG[address] DEPT . [place], [place] [address] (Wo rk) Social History Tobacco [...] documented as of this encounter Progress Notes Zeke Pulido MD - 02/02/2012 10:07 AM EST DERMATOLOGY ESTABLISHED PATIENT CLINIC NOTE Date of service: 02/02/2012 Pino Wong : 1935 Provider: Zeke Pulido MD PROBLEM: skin check SKIN HISTORY: 1.AK's 2.SK's 3.BCC left helix 2010-MOH's HPI Mr. Wong is a 76 y.o. year old male .Established in Dermatology,but new to me. He is here today for a full skin check. His is worried about some of the moles on his back. ADR: Review of patient's allergies indicates no known allergies. MEDS: Current outpatient prescriptions ordered prior to encounter Medication Sig Dispense Refill ??? CIS Free Text Med - Aspirin ??? simvastatin (ZOCOR) 80 mg tablet 80MG, PO, Every other day ??? allopurinol (ZYLOPRIM) 300 mg tablet 300mg, PO, QAM ROS General: feeling well Skin: denies other skin complaints EXAM General: NAD, pleasant, cooperative Skin: A total body skin exam except for areas covered by underwear was performed. This includes examination of the skin of the face, ears, neck, chest, axillae, left and right upper and lower extremities, hands and feet, abdomen, and except the areas covered by underwear were not examined. Significant skin findings: A. Hypopigmented scar on left helix B. 0.2-0.3cm scaly irregular pink papule(s)right cheek,right ear, right hand C. Multiple 0.4 cm -1 cm mcneal-brown papules/plaques with waxy stuck on appearance.scattered on back, and face ASSESSMENT/PLAN: A. NER of BCC-pt reassured. B. actinic keratosis-Procedure(s): Destruction of lesion(s) with cryotherapy. Number: 3 Location: as above Discussed procedure and expectations including risks (including risk of hypopigmentation) and benefits. Verbal consent obtained. Frozen with LN2, 15-30 second thaw time, TWICE. There were no complications; the patient tolerated the procedure well. Post-procedure expectations and wound care were reviewed. C.seborrheic keratosis-pt reassured. D. RTC in 1 year or sooner if needed. Note initiated by: GRIS COOPER LPN Routed to physician for review and changes: Zeke Pulido MD Section of Dermatology [facility] documented in this encounter Plan of Treatment Upcoming Encounters Date Type Specialty Care Team Description 01/26/2022 Infusion Hematology and Oncology 01/26/2022 Office Visit Hematology and Oncology Mirta Sy MD [facility] DR ONCOLOGY DEPT. [place], [place] [address] (Wo rk) 01/28/2022 Office Visit Radiation Oncology Chilango Michel MD [facility] [place]ATION [place] [address] (Wo rk) 01/29/2022 Infusion Hematology and Oncology 02/05/2022 Infusion Hematology and Oncology documented as of this encounter Visit Diagnoses Diagnosis History of skin cancer - Primary Personal history of other malignant neop lasm of skin AK (actinic keratosis) Actinic keratosis SK (seborrheic keratosis) Other seborrheic keratosis documented in this encounter Care Teams Director Of Strategic Partnerships Relationship Specialty Start Date End Date Geovanni Irwin MD PCP - General 12/09/10 10/16/[address] [place] [address] documented as of this encounter
--- OUTSIDE RECORDS SUMMARY | 2022-01-24 03:59 | XMS_ITS | Encounter Summary ---
:1935 Author Organization [facility] [address] Care Team Providers Name Role Phone Geovanni Irwin MD Primary Care Provider Reason for Visit Reason Comments Skin Check Encounter Details Date Type Department Care Team Description 07/21/2011 Follow-Up Dermatology Meghana Rodríguez, AK (actinic keratosis) (Prim rosanna Dx); [facility] SK (seborrheic keratosis) Drive [place] [id number] [place] [id number] (Wo rk) Social History Tobacco Use Types [...] as of this encounter Progress Notes Meghana Ledezma MD - 07/21/2011 8:21 AM EDT DERMATOLOGY ESTABLISHED PATIENT CLINIC NOTE Date of service: 07/21/2011 Pino Wong : 1935 Provider: Meghana Ledezma MD Chief Complaint Patient presents with ??? Skin Check SKIN HISTORY: 1.AK's 2.SK's 3.BCC left helix 2011-MOH's HPI Pino Wong is a 76 y.o. year old male,established patient here for follow up of surgery on his ear which he states he has had no problems with. Scar is well healed. Does have new scaly spot lower on, also on left helix, and a crusty papule on the forearm. ADR: No Known Allergies MEDS: Current outpatient prescriptions ordered prior to encounter Medication Sig Dispense Refill ??? CIS Free Text Med - Aspirin ??? simvastatin (ZOCOR) 80 mg tablet 80MG, PO, Every other day ??? allopurinol (ZYLOPRIM) 300 mg tablet 300mg, PO, QAM ROS General: feeling well Skin: denies other skin complaints EXAM General: NAD, pleasant, cooperative male. Skin: Examination of skin from the waist up was performed. This includes examination of the skin of the face, ears, neck, chest, axillae, left and right upper extremities, hands, back, and abdomen. Significant skin findings: A. 0.2-0.3cm scaly irregular pink papule(s) left mid helix,right helix x 2 B.Multiple 0.4-0.6cm brown papules with waxy, stuck-on appearance. Milia-like cysts, comedone-like openings and/or fissuring on dermoscopy. C. Well healed scar, left superior helix ASSESSMENT/PLAN: A. AK-Procedure(s): Destruction of lesion(s) with cryotherapy. Number: 3 Location: as above Discussed procedure and expectations including risks (including risk of hypopigmentation) and benefits. Verbal consent obtained. Frozen with LN2, 15-30 second thaw time, TWICE. There were no complications; the patient tolerated the procedure well. Post-procedure expectations and wound care were reviewed. B.ISK-Procedure(s): Destruction of lesion(s) with cryotherapy. Number: 1 Location: as above Discussed procedure and expectations including risks (including risk of hypopigmentation) and benefits. Verbal consent obtained. Frozen with LN2, 15-30 second thaw time, TWICE. There were no complications; the patient tolerated the procedure well. Post-procedure expectations and wound care were reviewed. C.history of BCC, NEr D.RTC 01/2012 as scheduled for complete skin exam Note initiated by: JOY SIFUENTES LPN Routed to physician for review and changes: Meghana Ledezma MD Commercial Sales Specialist of Dermatology Department of Surgery [facility] [place] documented in this encounter Plan of Treatment Upcoming Encounters Date Type Specialty Care Team Description 01/26/2022 Infusion Hematology and Oncology 01/26/2022 Office Visit Hematology and Oncology Mirta Sy MD [facility] DR ONCOLOGY DEPT. [place], [place] [address] ( alondra) 01/28/2022 Office Visit Radiation Oncology Chilango Michel MD [facility] RADIATION ONCOLO [place], [place] [address] ( alondra) 01/29/2022 Infusion Hematology and Oncology 02/05/2022 Infusion Hematology and Oncology documented as of this encounter Visit Diagnoses Diagnosis AK (actinic keratosis) - Primary Actinic keratosis SK (seborrheic keratosis) Other seborrheic keratosis documented in this encounter Care Teams Audiology Doctor Relationship Specialty Start Date End Date Geovanni Irwin MD PCP - General 12/09/10 10/16/[address] [place] [address] documented as of this encounter
--- OUTSIDE RECORDS SUMMARY | 2022-01-24 03:59 | XMS_ITS | Encounter Summary ---
:1935 Author Organization [facility] [place] [address] Care Team Providers Name Role Phone Geovanni Irwin MD Primary Care Provider Reason for Visit Reason Comments Skin Check Encounter Details Date Type Department Care Team Description 08/09/2018 Office Visit Dermatology at [facility] Meghana Rodríguez AK (actinic keratosis); Eris Kirby MD SK (seborrheic keratosis); [address] [facility] Multiple benign nevi; [place] [address] DR Dermatofibroma; [phone] [facility] Skin tag [address]-DERMATOLGY [place], [place] [address] Social History Tobacco Use Types [...] Patient Instructions Patient InstructionsAnny Godfrey LPN - 08/09/2018 8:30 AM EDT Actinic Keratoses You have been diagnosed [...] weeks. Please contact the Dermatology clinic at [phone] if the lesion has not fully resolved after 6 weeks. documented in this encounter Progress Notes Meghana Rodríguez MD - 08/09/2018 8:30 AM EDT DERMATOLOGY ESTABLISHED PATIENT CLINIC NOTE Date of service: 08/09/2018 Pino Wong : 1935 Provider: Meghana Rodríguez MD Chief Complaint Patient presents with ??? Skin Check SKIN HISTORY: Left helix: BCC -s/p??Mohs 2010 ?? 08/27/2015 Left upper arm, shave removal: BCC, nodular and superficial pattern, with pigment. - s/p ED&C 09/10/15 ?? Other: - Actinic keratoses - Seborrheic keratoses - Filiform wart?? - Dermal nevus - Dermatofibroma - History of tick bites Preferred name: Pino Preferred method of contact for results: Home Phone OK to leave detailed message including biopsy results?: Yes HPI Pino Wong is a 83 y.o. year old male, established patient last seen by me on 12/08/17. Here today for a full skin examination. Patient denies any significant changes in his health since his last visit. He reports scattered rough areas, sometimes pruritic, on his left dorsal hand and forearm. MEDS: Current Outpatient Medications Medication Sig Dispense Refill [...] asked to undress to the level of her comfort. Verbalized that the provider's preference is for the patient to remove all clothing and that the provider will not examine areas patient elects to keep covered. A total body skin exam except for the genitalia was performed. This includes examination of the skin of the face, ears, neck, chest, axillae, left and right upper and lower extremities, hands, feet, abdomen, back, and buttocks. The genitalia, perineum, and perianal areas were not examined. Significant skin findings: A. Left preauricular x 1 left cheek x 1 left dorsal forearm x 1 left dorsal hand x 1 left parietal scalp x 2: 0.2-0.3 cm scaly/hyperkeratotic irregular pink papule(s). [Total: 6] B. Face, trunk and extremities: Scattered 0.4-0.6 cm pink-brown papules/plaques with waxy stuck-on appearance. C. Trunk and extremities: Multiple 0.3-0.5 cm medium-brown, evenly-pigmented macules and papules. All with regular pigment pattern on dermoscopy. No pigmented lesions suspicious for melanoma. D. Left lower leg Firm papule, centrally raised and sclerotic, with peripheral hyperpigmentation anddimpling with lateral pressure. E. Right axilla: 0.2-0.4 cm sessile, flesh-colored papules. ASSESSMENT/PLAN: A. Actinic Keratosis - Explained etiology, natural history and premalignent potential of these lesions. - Discussed treatment options (LN2, 5-FU, PDT) and their respective risks and benefits. - Patient elects to proceed with cryotherapy today. ?? Procedure: Destruction of lesion(s) with cryotherapy (LN2). Location(s): As noted above. Number: 6 Discussed procedure and expectations, including risks (especially hypopigmentation) and benefits. Verbal consent obtained. Frozen with LN2, 15-30 second thaw time, twice. There were no complications; patient tolerated the procedure well. Post-procedure expectations and wound care reviewed. - Instructed patient to return to clinic for re-evaluation if lesion(s) does not resolve with this treatment as expected. B. Seborrheic Keratoses - Explained that these are hereditary and adult-acquired. Reassured patient of benign nature. No treatment necessary. C. Benign-Appearing Nevi - No atypical lesions or features worrisome for malignancy. - Advised patient to watch for anything new or changing. Discussed changes (bleeding, pain, change in color or shape) that should prompt re-evaluation.?? - Will continue to monitor. D. Dermatofibroma - Discussed benign nature of lesion and provided reassurance. No treatment necessary. E. Skin Tags - Discussed benign nature of lesions and provided reassurance. No treatment necessary at this time. Follow up: RTC in 1 year for a full skin exam; sooner if needed. Reminder placed in system to schedule. Instructed patient to call with questions or concerns. Note initiated by: ANNY GODFREY LPN ? Basilia Ordonez, Clinical Scribe has performed the documentation for this encounter in the presence of and acting as a scribe for Meghana Rodríguez MD. I performed the above scribed service and agree with the accuracy of the documentation in this encounter. Meghana Rodríguez MD [employer] Distributor of Dermatology, Department of Surgery [facility] documented in this encounter Plan of Treatment Upcoming Encounters Date Type Specialty Care Team Description 01/26/2022 Infusion Hematology and Oncology 01/26/2022 Office Visit Hematology and Oncology Mirta Sy MD [facility] DR ONCOLOGY DEPT. [place], [place] [address] (Wo rk) 01/28/2022 Office Visit Radiation Oncology Chilango Michel MD [facility] RADIATION ONCOLO [address] [place], [place] [address] (Wo rk) 01/29/2022 Infusion Hematology and Oncology 02/05/2022 Infusion Hematology and Oncology documented as of this encounter Visit Diagnoses Diagnosis AK (actinic keratosis) Actinic keratosis SK (seborrheic keratosis) Other seborrheic keratosis Multiple benign nevi Benign neoplasm of skin, site unspecifie d Dermatofibroma Benign neoplasm of skin, site unspecifie d Skin tag Unspecified hypertrophic and atrophic co ndition of skin documented in this encounter Care Teams Application Internship Relationship Specialty Start Date End Date Geovanni Irwin MD PCP - General 12/09/10 10/16/[address] [place] [address] documented as of this encounter
--- OUTSIDE RECORDS SUMMARY | 2022-01-24 03:59 | XMS_ITS | Encounter Summary ---
:1935 Author Organization [facility] [address] Care Team Providers Name Role Phone Geovanni Irwin MD Primary Care Provider Reason for Visit Reason Comments Skin Check Focused Exam Encounter Details Date Type Department Care Team Description 12/08/2016 Office Visit Dermatology at [facility] Meghana Rodríguez [place] (actinic Road TMD keratosis) [address] [place] [address] [facility] [place], [place] [address] Social History Tobacco Use Types [...] encounter Progress Notes Meghana Rodríguez MD - 12/08/2016 9:00 AM EDT DERMATOLOGY ESTABLISHED PATIENT CLINIC NOTE Date of service: 12/08/2016 Pino Wong : 1935 Provider: Meghana Rodríguez MD Chief Complaint Patient presents with ??? Skin Check Focused Exam SKIN HISTORY: Actinic keratosis Basal cell carcinoma, left helix (Mohs, 2011) wart?? 08/27/15:??Left upper arm, shave removal: Basal cell carcinoma, nodular and superficial pattern, with pigment. (ED&C, 09/10/2015) HPI Pino Wong is a 81 y.o. year old male, established patient last seen by me on 09/08/2016. Patient is here with his today, and would like a few spots checked: evaluation of lesions on his forehead, scalp, and right ear that he would like checked before leaving for [place] for the winter. MEDS: Current Outpatient Prescriptions Medication Sig Dispense Refill ??? CIS Free Text Med - Aspirin ??? simvastatin (ZOCOR) 80 mg tablet 80MG, PO, Every other day ??? allopurinol (ZYLOPRIM) 300 mg tablet 300mg, PO, QAM No current facility-administered medications for this visit. ADR: No Known Allergies ROS General: feeling well Skin: denies other skin complaints EXAM General: NAD, pleasant, cooperative Skin: An exam of the skin from the neck up was performed. This includes examination of the skin of the face, ears, scalp, and neck. Significant skin findings: A. Right mid helix x 1, forehead x 1, vertex scalp x 1: 0.2-0.3cm scaly irregular pink papules Total: 3 B. Cha stuck on papule on the forehead ASSESSMENT/PLAN: A. Actinic Keratosis Discussed premalignant potential of lesions with patient and counseled that destruction with liquid nitrogen therapy is recommended. Patient agreed to the procedure after discussing risks/benefits/alternatives of the procedure, including hypopigmentation and discomfort. Wound care reviewed. Procedure Note: Procedure: Destruction of lesion with cryotherapy. Number: 3 Location: as above Discussed procedure and expectations including risks (including risk of hypopigmentation) and benefits. Verbal consent obtained. Frozen with LN2, 15-30 second thaw time, TWICE. There were no complications; the patient tolerated the procedure well. Post-procedure expectations and wound care were reviewed. Betsy. SK, pt reassured Follow up: July 2017 for a full skin exam coordinating with , sooner if needed. A reminder was placed for scheduling. Patient instructed to call with questions or concerns. I am documenting this encounter acting as the scribe for and in the presence of Dr. Rodríguez: ANNY GODFREY LPN I performed the above scribed service and agree with the accuracy of the documentation in this encounter. Meghana Rodríguez MD Washer Blanket of Dermatology, Department of Mold BuilderWasher Blanketcustomer pricing manager (Dermatopathology) [facility] documented in this encounter Plan of Treatment Upcoming Encounters Date Type Specialty Care Team Description 01/26/2022 Infusion Hematology and Oncology 01/26/2022 Office Visit Hematology and Oncology Mirta Sy MD [facility] DR ONCOLOGY DEPT. [place], [place] [address] (Wo rk) 01/28/2022 Office Visit Radiation Oncology Chilango Michel MD [facility] RADIATION ONCOLO [place], [place] [address] (Wo rk) 01/29/2022 Infusion Hematology and Oncology 02/05/2022 Infusion Hematology and Oncology documented as of this encounter Visit Diagnoses Diagnosis AK (actinic keratosis) Actinic keratosis documented in this encounter Care Teams Assessment Specialist Relationship Specialty Start Date End Date Geovanni Irwin MD PCP - General 12/09/10 10/16/[address] [place] [address] documented as of this encounter
--- OUTSIDE RECORDS SUMMARY | 2022-01-24 03:59 | XMS_ITS | Encounter Summary ---
:1935 Author Organization [facility] [place] [address] Care Team Providers Name Role Phone Geovanni Irwin MD Primary Care Provider Reason for Visit Reason Comments Skin Check Encounter Details Date Type Department Care Team Description 08/27[facility] behavior [facility] skin; Eris Kirby MD [place] (actinic keratosis); [address] [facility] (seborrheic keratosis); [place] [address] DR History of Tick bite; [phone] [facility] Dermatofibroma; RD-DERMATOLGY Dermal nevus [place], [place] [address] Social History Tobacco Use Types [...] as of this encounter Patient Instructions Patient Ines Calles - 08/27/2015 10:05 AM EDT Treatment and Wound Care Instructions Your treatment today: You have had a shave biopsy of your skin, which is a removal of tissue for examination under a microscope. This wound will heal without stitches. Allow 3-6 weeks for the wound to heal. If bleeding occurs, hold firm pressure against the wound for 15 minutes. If bleeding continues, calls the office or go to your local emergency room. Please allow 1-2 weeks for the biopsy results to return. Your physician or nurse will contact you with the results by phone or letter; follow-up will be discussed at that time. Wound Care Instructions: You will need to [...] or concerns, please call the office at [phone]. If it is after 5PM, or a holiday or weekend, please call [phone] and ask for the Dental Technician Instructor on-call. Actinic Keratoses You have been diagnosed today [...] weeks. Please contact the Dermatology clinic at [phone] if the lesion has not fully resolved after 6 weeks. If you are calling after hours, please call the mainline at [phone] and ask for the human resources representative extrusion die coordinator. Caring for Your Skin Sun Protection Exposure to ultraviolet (UV) light--from the sun or tanning beds--is the most common modifiable riskfactor for skin cancer. In fact, most skin cancers are found in locations where sun exposure is highest (e.g., face, ears, and hands). Furthermore, UV exposure is associated with skin aging, including wrinkles, brown spots, and leathery skin. Recommendations ?? Generously apply a broad-spectrum water-resistant sunscreen with a Sun Protection Factor (SPF) of30 or more to all exposed skin. ?? Reapply sunscreen every 2 hours, even on cloudy days, and after swimming or sweating. ?? Preferred sunscreens: Sunscreens work by either forming a physical or a chemical barrier to ultraviolet light. Zinc oxide or Titanium dioxide are physical barriers to the sun. We recommend sunscreens that contain at least one physical barrier. Look for these brands: Neutrogena, Blue Lizard, [place] Baby, Vanicream, Elta MD. ?? Wear protective clothing. Long-sleeved shirts, pants, a wide-brimmed hat and sunglasses are all excellent choices. Some companies produce great, breathable SPF clothing (Coolibar, [employer] Solorzano, Wednesday Afternoons) ?? Seek shade. The sun's rays are strongest between 10a.m. And 4 p.m. Dry Skin Care Dry skin is more problematic in the winter, when the humidity is lower. Taking measures to maintain the skin's moisture will decrease dryness and itching. Recommendations ?? Bathe in lukewarm water. Wash the skin gently (avoid vigorous scrubbing); use Dove or CeraVe soapto wash dirty areas. Avoid harsh soaps such as Korean Spring, Ivory, or Dial as these can be drying. ?? Immediately after bathing, apply a bland, preferably fragrance-free moisturizer to your skin. Ointments work better than creams, which work better than lotions. Look for the following brands: Vaseline 100% petroleum jelly, Vanicream, Neutrogena, CeraVe, Cetaphil, Aveeno, Lubriderm, or Eucerin. ?? For itchy areas, you can apply hydrocortisone 1% cream (fxkv-tws-ildbtfy product) for 1-2 weeks. Do not use this medication on your face. Skin Cancer screening The incidence of skin cancer has increased dramatically in the past 20 years. The most common skin cancer types include basal cell carcinoma and squamous cell carcinoma. These often look like new moles, and they might be tender, scaly, or prone to bleeding. The most deadly form of skin cancer is melanoma, and it can affect people of all ages and skin types. Recommendations ?? We recommend performing a skin self-examination monthly to become familiar with your moles. This will help you to detect new or changing moles earlier. ?? Remember the ABCDE's of melanoma: ?? Asymmetry - Melanoma tends to grow in an asymmetric (uneven) fashion ?? Border - The border in melanoma tends to be uneven or jagged ?? Color - Melanomas often have different colors (e.g., dark brown, black, red) ?? Diameter - Look for moles that are larger than 0.6 cm (the size of a pencil eraser) ?? Evolution - This is perhaps the most important feature. Any mole that is rapidly growing or changing should be evaluated. documented in this encounter Progress Notes Meghana Rodríguez MD - 09/04/2015 1:24 PM EDT Biopsy shows BCC. It was removed by the biopsy procedure but close to the edges. I recommend an ED&C to make sure all the skin cancer has been completely removed. Meghana Rodríguez MD - 08/27/2015 9:49 AM EDT Images from the original note were not included. DERMATOLOGY ESTABLISHED PATIENT CLINIC NOTE Date of service: 08/27/2015 Pino Wong : 1935 Provider: Meghana Rodríguez MD Chief Complaint Patient presents with ??? Skin Check SKIN HISTORY: History of actinic keratosis & seborrheic keratosis History of basal cell carcinoma, left helix 2011-MOH's -Scar HPI Pino Wong is a 80 y.o. year old male, established patient last seen by me on 08/22/14. Patient presents to the clinic today with his for a full skin examination. Patient denies any significant changes in his health since his last visit. He denies any new skin concerns today. Patient reports a tick bite on the right anterior shoulder that occurred 6 weeks ago. He saw his PCPwho had no concerns regarding this area as there was no rash and patient was and is feeling well with no history of fevers and chills since the occurrence. Patient reports that there was no bullseye and that it is taking the lesion some time to heal. MEDS: Current Outpatient Prescriptions Medication Sig Dispense [...] was performed. This includes examination of the skinof the face, ears, neck, chest, axillae, left and right upper and lower extremities, hands, feet, abdomen, back, and buttocks. The genitalia, perineum, and perianal areas were not examined. Significant skin findings: A. Left upper arm: 0.5 x 0.4 cm pigmented pink shiny papule Verbal consent was given today to obtain and chart today's photos. Photos taken by Truong Whalen Scribedwin. B. Right mid posterior helix x 2, scalp x 1: 0.2-0.3cm scaly irregular pink papules Total: 3 C. Left helix: Well healed scar per skin history D. Torso, feet: 0.4-0.6 cm pink-brown papules/plaque with waxy stuck on appearance. E. Right anterior shoulder: history of tick bite with no bulls eye F. Right buttock: Hickox fleshy papule G. Left lateral calf: firm papule, centrally raised and sclerotic, with peripheral hyperpigmentationand dimpling with lateral pressure. ASSESSMENT/PLAN: A. 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 Location: left upper arm Discussed indications for procedure and expectations including risks and benefits. Verbal consent obtained. Skin prep with alcohol. Local anesthesia with 1% xylocaine, 1/100,000 epinephrine, 0.1 mEq/mLbicarbonate. The lesion was removed by shave technique to the level of the dermis and submitted to Pa thology. Hemostasis obtained. (AlCl and/or electrocautery). There were no complications; the pt. tolerated the procedure well. The wound was dressed. Post-procedure expectations, wound care and activity restrictions were reviewed. Final diameter: 1.2 cm Follow-up based on pathology results. B. Actinic Keratosis Discussed premalignant potential of lesions with patient and counseled that destruction with liquid nitrogen therapy is recommended. Patient agreed to the procedure after discussing risks/benefits/alternatives of the procedure, including hypopigmentation and discomfort. Wound care reviewed. Procedure Note: Procedure: Destruction of lesions with cryotherapy. Number: 3 Location: as above Discussed procedure and expectations including risks (including risk of hypopigmentation) and benefits. Verbal consent obtained. Frozen with LN2, 15-30 second thaw time, TWICE. There were no complications; the patient tolerated the procedure well. Post-procedure expectations and wound care were reviewed. C. H/O BCC, NER D. Seborrheic keratoses - Discussed benign nature of lesion and provided reassurance. No treatment necessary at this time. E. History of tick bite 6 weeks ago - Patient denies fevers and chills and is feeling well. - No treatment needed at this time F. Dermal nevus - Discussed benign nature of lesion and provided reassurance. No treatment necessary at this time. G. Dermatofibroma (DF) - Discussed benign nature of lesion and provided reassurance. No treatment necessary at this time. - The nature of sun-induced photo-aging and skin cancers is discussed. Sun avoidance, protective clothing, and the use of 30-SPF sunscreens is advised. Observe closely for skin damage/changes, and callif such occurs. Follow up: Return to clinic in 1 year for full skin exam, or sooner if needed. A reminder letter will be sent to schedule. Patient instructed to call with questions or concerns. I am documenting this encounter acting as the scribe for and in the presence of Dr. Rodríguez: Ines Noble, Clinical Scribe I performed the above scribed service and agree with the accuracy of the documentation in this encounter. Meghana Rodríguez MD Receivables Specialist of Dermatology, Department of [employer] Construction SupervisorReceivables Specialistdewaterer operator (Dermatopathology) [facility] documented in this encounter Plan of Treatment Upcoming Encounters Date Type Specialty Care Team Description 01/26/2022 Infusion Hematology and Oncology 01/26/2022 Office Visit Hematology and Oncology Mirta Sy MD [facility] ONCOLOGY DEPT. [place], [place] [address] (Wo rk) 01/28/2022 Office Visit Radiation Oncology Chilango Michel MD [facility] RADIATION ONCOLO [place], [place] [address] (Wo rk) 01/29/2022 Infusion Hematology and Oncology 02/05/2022 Infusion Hematology and Oncology documented as of this encounter Procedures Procedure Name Priority Date/Time Associated Diagnosis Comme nts SPECIMEN TO Routine 08/27/2015 10:34 AM Neoplasm of Results for this PATHOLOGY (NON-OR) EDT uncertain behavior pro cedure are in of skin the results section. SURGICAL PATHOLOGY Routine 08/27/2015 10:34 AM Re sults for this REPORT EDT procedure are i n the results section. documented in this encounter Results Surgical Pathology Report (08/27/2015 10:34 AM EDT) [facility] Method Time Signature Surgical [id number] ?Location: [facility] Report The signing pathologist has (i) examined the relevant preparation(s) for the [facility] specimen(s) and (ii) rendered or confirmed the diagnosis(es) . HOSP[facility] LAB[facility]ORY . ?Surgic al Pathology DIAGNOSIS Skin, left upper arm, shave removal: Basal cell carcinoma, nodular and superficial pattern, with pigment. (see Discussion). 08/28/15 DLD 09/02/15 Verified by: ? Helena Grace MD ?Dermatopathologist ?(Electronic Signature ) The attending pathologist whose signature appears on this re port has reviewed all diagnostic slides and has edited the gross and/ or microscopic portion of the report in eduard dering the final pathologic diagnosis. DISCUSSION There are some associated st romal changes that extend to a peripheral ? biopsy edge, but the basal cell carcinom a islands are not seen in the peripheral biopsy edges in the plane of sections examined. CLINICAL INFORMATION Specimen Submitted: A - Skin, left upper arm, shave removal (1) Clinical History: 0.5 x 0.4 cm pigmented pink shiny papule Clinical Diagnosis: Pigmented basal cell carcinoma, rule out AMM SPECIMEN PROCESSING A - Labeled/Fixative: Left upper arm, formalin. Quantity/Size: Single, 1.5 x 0.9 x 0.2 cm. Tissue Description: Shave of white skin with a 0.5 x 0.4 cm pink-brown papule. Sections/Processing : The specimen is inked and serially sec tioned. The ends are submitted in (1); the remainder in (2). (T2) ?? sns Specimen (Source) Anatomical Collection Method Collection Time Re ceived Time Location / / Volume Laterality 08/27/2015 10:34 AM EDT Meghana Rodríguez MD PATHOLOGY/CYTOLOGY ORDERABLE S Performing Organization Address City/[facility]/[place] [address] Specimen to Pathology (NON-OR) (08/27/2015 10:34 AM EDT) Specimen Anatomical Collection Method Collection Time Receive d Time (Source) Location / / Volume Laterality AP Specimen 08/27/2015 10:34 08/27/2015 AM EDT 12:46 PM EDT Narrative [facility] - 08/27/2015 12:47 PM EDT Specimen requisition ordered. ??Separate Pathology report to follow Resulting Agency Comment Spec In Lab Meghana Rodríguez MD PATHOLOGY/CYTOLOGY ORDERABLE S Performing Organization Address City/[facility]/ZIP [facility] [place] [address] documented in this encounter Visit Diagnoses Diagnosis Neoplasm of uncertain behavior of skin AK (actinic keratosis) Actinic keratosis SK (seborrheic keratosis) Other seborrheic keratosis History of Tick bite Other, multiple, and unspecified sites, insect bite, nonvenomous, without mention of infection Dermatofibroma Benign neoplasm of skin, site unspecifie d Dermal nevus Benign neoplasm of skin, site unspecifie d documented in this encounter Care Teams [employer] Relationship Specialty Start Date End Date Geovanni Irwin MD PCP - General 12/09/10 10/16/[address] [place] [address] documented as of this encounter
--- OUTSIDE RECORDS SUMMARY | 2022-01-24 03:59 | XMS_ITS | Encounter Summary ---
:1935 Author Organization [facility] [place] [address] Care Team Providers Name Role Phone Geovanni Irwin MD Primary Care Provider Reason for Visit Reason Comments Skin Check Encounter Details Date Type Department Care Team Description 08/22/2014 Follow-Up Dermatology at [facility] Meghana Rodríguez T, History of basal cell carcinoma; Eris MUNOZ AK (actinic keratosis); [address] [facility] Seborrheic keratosis; [place] [address] [address] Dermatofibroma; [phone] [facility] Seborrheitran mariscal tosis, inflamed RD-DERMATOLGY [place], [place] [address] (Wo rk) Social History Tobacco [...] as of this encounter Patient Instructions Patient InstructionsMadeleine Colvin LPN - 08/22/2014 9:56 AM EDT Actinic Keratoses You have been [...] weeks. Please contact the Dermatology clinic at [phone] if the lesion has not fully resolved after 6 weeks. documented in this encounter Progress Notes Meghana Rodríguez MD - 08/22/2014 9:38 AM EDT DERMATOLOGY ESTABLISHED PATIENT CLINIC NOTE Date of service: 08/22/2014 Pino Wong : 1935 Provider: Meghana Rodríguez MD Chief Complaint Patient presents with ??? Skin Check SKIN HISTORY: History of actinic keratosis & seborrheic keratosis History of basal cell carcinoma, left helix 2010-MOH's -Scar HPI Pino Wong is a 79 y.o. year old male. Established patient, last seen by me on 08/16/13. Patient presents to the clinic today, with , for a full skin cancer examination. Patient states that he has a crusted lesion on the left superior helix, near previous MOHS scar that is bothersome. He also had a lesion on the right abdomen that he thought was a tick bite, it scabbed and has healed, he would like this area examined today as well. MEDS: Current Outpatient Prescriptions Medication Sig Dispense Refill ??? CIS Free Text Med - Aspirin ??? simvastatin (ZOCOR) 80 mg tablet 80MG, PO, Every other day ??? allopurinol (ZYLOPRIM) 300 mg tablet 300mg, PO, QAM No current facility-administered medications for this visit. ADR: No Known Allergies ROS General: feeling well Skin: denies other skin complaints EXAM General: NAD, pleasant, cooperative Skin: A skin examination was performed. This includes the head, neck, face and scalp including behind the ears. The chest, abdomen, back, and axillae, as well as the arms, hands, palms, fingers. Legs, feet, toes and soles were also examined. Significant skin findings: A. Left helix: well healed surgical scar, s/p MOHS for basal cell carcinoma, no clinical evidence ofrecurrence. B. 0.2-0.3cm scaly irregular pink papule(s) -Left helix x 1 -Left tragus x 1 -Left zoroastrianism x 1 -Right zoroastrianism x 1 C. Multiple 0.4-0.6cm brown papules with waxy, stuck-on appearance. Milia like cysts, comedone-like openings and/or fissuring on dermoscopy. D. Left lateral upper levy: firm papule, centrally raised and sclerotic, with peripheral hyperpigmentation and dimpling with lateral pressure. E. Inflamed 0.4-0.6cm brown papule with waxy, stuck-on appearance. Milia like , comedone-like openings and/or fissuring on dermoscopy. -Right abdomen x 1 ASSESSMENT/PLAN: A. Will continue to monitor clinically ell-healed hypopigmented scars at sites above, no signs of recurrence Will continue to monitor clinically B. Actinic Keratosis Discussed premalignant potential of lesions with patient and counseled that destruction with liquid nitrogen therapy is recommended. Patient agreed to the procedure after discussing risks/benefits/alternatives of the procedure, including hypopigmentation and discomfort. Wound care reviewed. Procedure Note: Procedure: Destruction of lesion(s) with cryotherapy. Number: 4 Location: as above Discussed procedure and expectations including risks (including risk of hypopigmentation) and benefits. Verbal consent obtained. Frozen with LN2, 15-30 second thaw time, TWICE. There were no complications; the patient tolerated the procedure well. Post-procedure expectations and wound care were reviewed. C. Seborrheic Keratosis Discussed benign nature of lesion and provided reassurance. No treatment necessary at this time. D. Dermatofibroma (DF) Discussed benign nature of lesion and provided reassurance. No treatment necessary at this time. E. Inflamed seborrheic keratosis Discussed benign nature of lesion and provided reassurance. However, due to irritation present on today's exam and history of symptoms, discussed removal with liquid nitrogen today in the office. Discussed risk of hypopigmentation and discomfort, discussed alternatives, and reviewed wound care. The patient agreed to the procedure after discussing risks/benefits/alternatives. Procedure Note: Procedure: Destruction of lesion(s) with cryotherapy. Number: 1 Location: as above Discussed procedure and expectations including risks (including risk of hypopigmentation) and benefits. Verbal consent obtained. Frozen with LN2, 15-30 second thaw time, TWICE. There were no complications; the patient tolerated the procedure well. Post-procedure expectations and wound care were reviewed. Follow up: Return to the clinic in 1 year for a skin cancer examination, medical records secretary will call to schedule, or sooner if needed. I am documenting this encounter acting as the scribe for and in the presence of Dr. Rodríguez: Madeleine Colvin LPN I performed the above scribed service and agree with the accuracy of the documentation in this encounter. Meghana Rodríguez MD Network Systems Consultant of Dermatology, Department of Personal CaregiverNetwork Systems Consultantrig hand (Dermatopathology) [facility] documented in this encounter Plan of Treatment Upcoming Encounters Date Type Specialty Care Team Description 01/26/2022 Infusion Hematology and Oncology 01/26/2022 Office Visit Hematology and Oncology Mirta Sy MD [facility] ONCOLOGY DEPT. [place], [place] [address] (Wo rk) 01/28/2022 Office Visit Radiation Oncology Chilango Michel MD [facility] RADIATION ONCOLO GY [place], [place] [address] (Wo rk) 01/29/2022 Infusion Hematology and Oncology 02/05/2022 Infusion Hematology and Oncology documented as of this encounter Visit Diagnoses Diagnosis History of basal cell carcinoma Personal history of other malignant neop lasm of skin AK (actinic keratosis) Actinic keratosis Seborrheic keratosis Other seborrheic keratosis Dermatofibroma Benign neoplasm of skin, site unspecifie d Seborrheic keratosis, inflamed Inflamed seborrheic keratosis documented in this encounter Care Teams Director Of Enterprise Architecture Relationship Specialty Start Date End Date Geovanni Irwin MD PCP - General 12/09/10 10/16/[address] [place] [address] documented as of this encounter
--- OUTSIDE RECORDS SUMMARY | 2022-01-24 03:59 | XMS_ITS | Encounter Summary ---
:1935 Author Organization [facility] [place] [address] Care Team Providers Name Role Phone Amelia Gomes Sarina CARLOS Primary Care Provider [phone] Reason for Referral Consultation (Routine) - Closed Specialty Diagnoses / Procedures Referred By Contact Refer red To Contact Otolaryngology Diagnoses Squamous cell carcinoma of right tonsil Orlando Pena MD [place]dar[place], [place] [address] [place]UNOZ [place], [place] [address] [facility] OTOLARYNGOLOGY DEPT. [place], [place] [address] Phone: Fax: Referral ID Status Reason Start Date Expiration Date Visits V isits Requested Authorized [id number] Closed Consult, 09/16/2021 09/16/2022 1 1 Test & Treat Encounter Details Date Type Department Care Team Description 09/16/2021 Transcribe Orders eDH Incoming Orlando Pena MD Squamous cell Referrals [address] [place] [address] DR carcinoma of right [phone] [place], [place] tonsil [address] Social History Tobacco Use Types Packs/Day Years [...] [facility] ONCOLOGY DEPT. [place], [place] [address] (Wo alondra) 01/28/2022 Office Visit Radiation Oncology Chilango Michel MD [facility] RADIATION ONCOLO [place], [place] [address] (Wo rk) 01/29/2022 Infusion Hematology and Oncology 02/05/2022 Infusion Hematology and Oncology Scheduled Referrals Name Type Priority Associated Diagnoses Order S chedule Referral to ENT Outpatient Referral Routine Squamous cell Orde red: 09/16/2021 carcinoma of right tonsil documented as of this encounter Visit Diagnoses Diagnosis Squamous cell carcinoma of right tonsil Malignant neoplasm of tonsil documented in this encounter Care Teams Administrative Judge Relationship Specialty Start Date End Date Amelia Gomes APRN PCP - General Family Medicine 10/17/20 [address] [place] [address] documented as of this encounter
--- OUTSIDE RECORDS SUMMARY | 2022-01-24 03:59 | XMS_ITS | Encounter Summary ---
:1935 Author Organization [facility] Address [address] [place] [address] Care Team Providers Name Role Phone Geovanni Irwin MD Primary Care Provider Reason for Visit Reason Comments Skin Check Encounter Details Date Type Department Care Team Description 08/17/2012 Follow-Up Dermatology at [facility] Castanon MD AK (actinic keratosis) (Primary Dx); Road [address] [facility] [address] History of nonmelanoma skin cancer; [address] DERMATOLOGY Scar; [place] [address] [place] [address] [place] (seborrheic keratosis) [phone] (Wo rk) Social History Tobacco Use Types [...] documented as of this encounter Progress Notes Bertha Elliott MD - 08/17/2012 11:40 AM EDT DERMATOLOGY - ESTABLISHED PATIENT FOLLOW-UP Date of service: 08/17/2012 Pino Wong : 1935 Chief Problem: Chief Complaint Patient presents with ??? Skin Check Mr. Pino Wong is a 77 y.o. male. This is an established patient, last seen by Dr. Pulido, 6 months ago,but new to me. Present today with . HPI: Mr. Wong presents for a 6 month skin check. His only concern is a lesion on his right buttock- asymptomatic, rough area, no previous tx, unchanging, unknown duration. Pt is doing well, no other concerns. Skin History: 1.AK's 2.SK's 3.BCC left helix 2010-MOH's Medical History: Patient Active Problem List Diagnoses Code ??? AK (actinic keratosis) 702.0 ??? SK (seborrheic keratosis) 702.19 ??? History of nonmelanoma skin cancer V10.83 Medications: Current Outpatient Prescriptions Medication Sig Dispense Refill ??? CIS Free Text Med - Aspirin ??? simvastatin (ZOCOR) 80 mg tablet 80MG, PO, Every other day ??? allopurinol (ZYLOPRIM) 300 mg tablet 300mg, PO, QAM Allergies: No Known Allergies Family History: No family history of melanoma or non-melanoma skin cancer No family history of atopy, psoriasis or other skin disease Social/Occupational History: . Review of Systems: - General: Feels well. - Skin: As per HPI; no other skin concerns. Examination: - Constitutional: Patient was alert, well-appearing and in no noticeable distress. - Skin: A full skin examination was performed. This includes the head, neck, face and scalp including behind the ears. The chest, abdomen, back, and axillae, as well as the arms, hands, palms, fingers.Legs, feet, toes and soles were also examined. Buttocks was also examined with patient consent. Genitalia were not examined. Specific skin findings: 1. Hypopigmented, well-healed scar, no signs of recurrence- left helix 2. 0.3cm scaly irregular pink papule postauricular left ear 3. Multiple 0.4-1 cm, brown-black papules/plaques with waxy stuck on appearance, scattered includingback,arms, and right buttock. Diagnosis/Assessment/Treatment Plan: 1. Scar with H/o BCC -no signs of recurrence -continue to monitor -Discussed importance of sun protection, sun avoidance strategies, protective clothing, and sunscreen. 2. actinic keratosis Procedure(s): Destruction of lesion(s) with cryotherapy. Number: 1 Location: as above Discussed procedure and expectations including risks (including risk of hypopigmentation) and benefits. Verbal consent obtained. Frozen with LN2, 15-30 second thaw time, TWICE. There were no complications; the patient tolerated the procedure well. Post-procedure expectations and wound care were reviewed. 3. seborrheic keratoses-pt reassured. Patient verbally expressed understanding. As my standard of care, I asked the patient at the end of the visit if he had any further concerns or questions and the patient verbally stated that he had no other concerns or questions. All questions were answered and all concerns were addressed. Follow-up: RTC in 1 year, sooner PRN. Instructed to call for questions or concerns. GRIS COOPER LPN has performed the documentation for this encounter in the presence of and acting as a scribe for . I performed the above scribed service and agree with the accuracy of the documentation in this encounter. Noted reviewed, changed, edited and signed by staff clinical documentation improvement specialist: Bertha Elliott MD Section of Dermatology [facility] documented in this encounter Plan of Treatment Upcoming Encounters Date Type Specialty Care Team Description 01/26/2022 Infusion Hematology and Oncology 01/26/2022 Office Visit Hematology and Oncology Mirta Sy MD [facility] DR ONCOLOGY DEPT. [place], [place] [address] (Wo rk) 01/28/2022 Office Visit Radiation Oncology Chilango Michel MD [facility] RADIATION ONCOLO GY [place], [place] [address] (Wo rk) 01/29/2022 Infusion Hematology and Oncology 02/05/2022 Infusion Hematology and Oncology documented as of this encounter Visit Diagnoses Diagnosis AK (actinic keratosis) - Primary Actinic keratosis History of nonmelanoma skin cancer Personal history of other malignant neop lasm of skin Scar Scar condition and fibrosis of skin SK (seborrheic keratosis) Other seborrheic keratosis documented in this encounter Care Teams Cutter And Presser Relationship Specialty Start Date End Date Geovanni Irwin MD PCP - General 12/09/10 10/16/[address] [place] [address] documented as of this encounter
--- OUTSIDE RECORDS SUMMARY | 2022-01-24 03:59 | XMS_ITS | Encounter Summary ---
:1935 Author Organization [facility] [place] [place] [address] Care Team Providers Name Role Phone Judith Mckeon MD Primary Care Provider Reason for Visit Reason Comments Skin Check Encounter Details Date Type Department Care Team Description 02/12/2011 Office Visit Dermatology CLINIC, DR VARGAS Neoplasm of unspecified natu re of bone, soft tissue, and skin (Primary Dx); [facility] Meghana Rodríguez MD [facility] [place] [address] [place] [address] Social History Tobacco Use Types Packs/Day Years [...] as of this encounter Progress Notes Meghana Ramirez MD - 02/12/2011 10:26 AM EST DERMATOLOGY CONSULT NOTE Date of service: 02/12/2011 Pino Wong : 1935 Provider: Meghana Ramirez MD Chief Complaint Patient presents with ??? Skin Check The patient is seen at the request of JUDITH MCKEON MD, who instructed the patient to be seen for evaluation of above SKIN HX:Negative HPI Pino Wong is a 75 y.o. year old male,new patient referred for a complete skin check with onespot on his left ear that comes and goes and gets scabby, and sometimes bleeds, present for 1 year. He also states there may be similar spots behind his right ear and several moles on his back that areunchanged. ADR: Review of patient's allergies indicates no [...] EXAM General: NAD, pleasant, cooperative male. Skin: A total body skin exam except for areas covered by underwear was performed. This includes examination of the skin of the face, ears, neck, chest, axillae, left and right upper and lower extremities, hands and feet, abdomen, and except the areas covered by underwear were not examined. Significant skin findings: A.0.3 cm pink, somewhat shiny papule, with scale B.Multiple 0.4-0.6cm brown papules with waxy, stuck-on appearance. Milia-like cysts, comedone-like openings and/or fissuring on dermoscopy.Stucco keratoses on the feet. C.0.2-0.3cm scaly irregular pink papule(s) left cheek x 1,right helix x 2 ASSESSMENT/PLAN: A.AK vs BCC vs SCC vs CNH-Procedure: Skin biopsy. Location:left helix Discussed indications for procedure and expectations including risks and benefits. Verbal consent obtained. Skin prep with alcohol. Local anesthesia with 1% xylocaine, 1/100,000 epinephrine, 0.1 mEq/mLbicarbonate. A sample of the lesion was removed by shave technique to the level of the dermis and submitted to Pathology. Hemostasis obtained (AlCl and/or electrocautery). There were no complications; the pt. tolerated the procedure well. The wound was dressed. Post-procedure expectations, wound care and activity restrictions were reviewed. B. seborrheic keratoses - reassured C.AK's-Procedure(s): Destruction of lesion(s) with cryotherapy. Number:3 Location: as above Discussed procedure and expectations including risks (including risk of hypopigmentation) and benefits. Verbal consent obtained. Frozen with LN2, 15-30 second thaw time, TWICE. There were no complications; the patient tolerated the procedure well. Post-procedure expectations and wound care were reviewed. D.The nature of sun-induced photo-aging and skin cancers is discussed. Sun avoidance, protective clothing, and the use of 30-SPF sunscreens is advised. Observe closely for skin damage/changes, and callif such occurs. E. F/u pending above, and RTC 1 year Note initiated by: JOY SIFUENTES LPN Routed to physician for review and changes: Meghana Ramirez MD Medical Doctor of Dermatology Department of Surgery [facility] cc: JUDITH MCKEON MD documented in this encounter Plan of Treatment Upcoming Encounters Date Type Specialty Care Team Description 01/26/2022 Infusion Hematology and Oncology 01/26/2022 Office Visit Hematology and Oncology Mirta Sy MD [facility] DR ONCOLOGY DEPT. [place] [address] (Wo rk) 01/28/2022 Office Visit Radiation Oncology Chilango Michel MD [facility] RADIATION [place], [place] [address] (Wo rk) 01/29/2022 Infusion Hematology and Oncology 02/05/2022 Infusion Hematology and Oncology documented as of this encounter Procedures Procedure Name Priority Date/Time Associated Diagnosis Comme nts SURGICAL PATHOLOGY Routine 02/12/2011 12:39 PM Re jenna for this REPORT EST procedure are i n the results section. documented in this encounter Results SURGICAL PATHOLOGY REPORT (02/12/2011 12:39 PM EST) Component Value Ref Test Analysis Performed At [facility] gist Range Method Time Signature Surgical CERNER Pathology ? [facility] Report ? Provider: ?? MEGHANA RAMIREZ ?? Pt. Name: ?? FLAVIO Piedra, PINO Ward ? Acc #: ?[id number] ? Pt. ? Col Date: ?? 02/13/20 11 ?/Sex: ?1935,(75 years),Male ? Rec Date: ?? 02/12/2011 ?LOC: ?4M ? SURGICAL PATHOLOGY ? ---Pathologic Diagnosis--- ? Skin, left helix, shave biopsy: ?Basal cell carcinoma. ? CR-0 ? 02/13/11 ? AJE ? 02/14/11 Verified by: ? Monroe MUNOZ, Love Meyer ? Dermatopatholo gist ? (Electronic Si gnature) ? The attending pathologist whose signature appears o n this report has ? reviewed all diagnostic slides and has edited the tasha ss and/or ? microscopic portion of the report in rendering the fi nal pathologic ? diagnosis. ? ---Microscopic Description--- ? Slides reviewed, microscopic description not recorded . ? ---Gross Description--- ? Labeled/Fixative: ? L helix, formalin. ? Qty/Size/Weight: ?Single shave, 0.6 cm, pink. ? Sections/Processing: ??Bisected. ??(T1) aje/SNS ? ---Clinical Information--- ? Specimen Submitted: ? A - Skin, left helix, shave (1) ? Clinical History/Diagnosis: ? 0.4-cm pink papule ? AK vs BCC Specimen (Source) Anatomical Collection Method Collection Time Re ceived Time Location / / Volume Laterality 02/12/2011 12:39 PM EST Meghana Rodríguez MD PATHOLOGY/CYTOLOGY ORDERABLE S Performing Organization Address City/State/[place] [address] H[facility]ORY [facility] documented in this encounter Visit Diagnoses Diagnosis Neoplasm of unspecified nature of bone, soft tissue, and skin - Primary Actinic keratoses Actinic keratosis documented in this encounter Care Teams Singer And Unloader Relationship Specialty Start Date End Date Judith Mckeon MD PCP - General 12/09/10 10/16/[address] [place] [address] documented as of this encounter
--- OUTSIDE RECORDS SUMMARY | 2022-01-24 03:59 | XMS_ITS | Encounter Summary ---
:1935 Author Organization [facility] [address] Care Team Providers Name Role Phone Geovanni Irwin MD Primary Care Provider Reason for Visit Reason Comments Basal Cell Carcinoma Encounter Details Date Type Department Care Team Description 03/04/2011 Office Visit Dermatology Fercho Hogan, BCC (basal cell [facility] MD carcinoma) (Primary [facility] Dx) [place] [address] [facility]-DERMATOLOGY [place], [place] [address] (Wo rk) Social History Tobacco [...] Sign Reading Time Taken Comments Blood Pressure 138/85 03/04/2011 8:16 AM EST Pulse 103 03/04/2011 8:16 AM EST Temperature - - Respiratory Rate 20 03/04/2011 8:16 AM EST Oxygen Saturation - - Inhaled Oxygen Concentration - - Weight 95.3 kg (210 lb) 03/04/2011 8:16 AM EST Height 177.8 cm (5' 10) 03/04/2011 8:16 AM EST Body Mass Index 30.13 03/04/2011 8:16 AM EST documented in this encounter Progress Notes Madeleine Knox LPN - 03/04/2011 3:57 PM EST Keflex 500mg orally bid x 7days called in to [facility] in [place] per . Fercho Hogan MD - 03/04/2011 1:38 PM EST Operative Report Patient name: iPno Wong : 1935 Date: 03/04/2011 Staff Surgeon: Fercho Hogan MD, PhD Field Service Representative I: Madeleine Knox, Grady Gallo Sap Portal Architect: Lexie Snell Pre-operative diagnosis:BCC Post-operative diagnosis: BCC Location: left helix Procedure: Mohs micrographic surgery Indication for Mohs micrographic surgery: Critical Anatomic Location Stages: 3 Final defect size: 1.5 x 0.5 cm Stage I The nature and purpose of the procedure, associated risks, possible consequences and complications,and alternative forms of treatment were explained in detail. Informed consent and permission to takephotographs were obtained. Local anesthesia was obtained with a buffered solution of 1% lidocaine with 1:100,000 epinephrine. The surgical site was prepped and draped in the usual sterile manner. Clinically apparent tumor was removed by excision with clinical margins and sent for step sectioning. With all visible gross tumor completely excised, the borders of the tumor were excised as a complete layer 2-3mm in thickness. Hemostasis was achieved by electrocoagulation. The excised tissue was oriented and divided into 2 sections, chromacoded, and submitted for frozen sections. The patient tolerated the procedure well and without complications. On microscopic evaluation of the frozen sections, residual tumor was identified on section 2 Stage II The surgical site was re-anesthetized with 1% lidocaine with 1:100,000 epinephrine, re-prepped and redraped in a sterile manner. The residual tumor was re-excised as a complete layer 2-3mm in thickness. Hemostasis was achieved with electrocoagulation. The tissue was oriented and divided into 2 section, chromacoded, and submitted for frozen sections. The patient tolerated the procedure well and without complications. On microscopic evaluation of the frozen sections, residual tumor was identified on section 4 Stage III The surgical site was re-anesthetized with 1% lidocaine with 1:100,000 epinephrine, re-prepped and redraped in a sterile manner. The residual tumor was re-excised as a complete layer 2-3mm in thickness. Hemostasis was achieved with electrocoagulation. The tissue was oriented and divided into 1 section, chromacoded, and submitted for frozen sections. The patient tolerated the procedure well and without complications. On microscopic evaluation of the frozen sections, no residual tumor was identified on the deep and outer border of the sections. The final size of the defect after complete tumor removal was 1.5 x 0.7 cm, extending to cartilage. Fercho Hogan MD, PhD Repair Report Patient name: Pino Wong : 1935 Date: 03/04/2011 Staff Surgeon: Fercho Hogan MD, PhD Field Service Representative I: Madeleine Knox, Vidya Sherwood, Grady Padron Clinical Diagnosis: skin and soft tissue defect status post Mohs excision of Basal Cell Carcinoma. Location: left helix Procedure: Full thickness skin graft for repair of Mohs defect Donor site: left post auricular Due to the size and location of the defect resulting from the complete removal of the tumor, the postoperative risk of hemorrhage, infection, and the possibility of serious deformity from scarring, and in order to restore proper function and prevent loss of function, the defect was closed. The nature and purpose of the procedure, associated risks, possible consequences, complications andalternative methods of treatment were explained to the patient in detail. An informed consent was obtained. Local anesthesia was achieved with a buffered solution of 1-% lidocaine with 1:100,000 epinephrine at both the site of the defect and the donor site. The patient was prepped and draped at both sites in the usual sterile manner. A template of the defect was made using a telfa pad and sterile marker. The template was used to design a fusiform excision at the donor site. With a scalpel blade the full thickness skin graft was harvested from left post auricular. The deep tissue of the donor defectwas apposed using 5-0 Monocryl sutures and the epidermal edges approximated with 5-0 Prolene sutures. The layered linear closure of the donor site measured 2.5 cm. The graft was defatted and placed upon the defect. The tissue was secured with the placement of several bolster sutures of 4-0 Silk sutures. The graft was then trimmed to match the contour of the defect and sutured to the edges of the defect using 5-0 Chromic suture without causing tenting or tension on the graft. The final graft dimensions were 1.5 x 0.5 cm. The recipient site was cleaned and a white petrolatum ointment applied. A bolster dressing consisting of Xeroform gauze was secured with the bolster sutures tied over the dressing. Additional gauze dressing was placed over this. The donor site was cleaned and white petrolatum with Xeroform and gauze pressure dressing applied. The patient tolerated the procedure well and without complications and wasgiven both verbal and written instructions on post- operative wound care. Follow-up for suture removal was scheduled for one week. The patient was discharged in good condition. Fercho Hogan MD, PhD Fercho Hogan MD - 03/04/2011 8:05 AM EST Referring Physician: __Dr. Ramirez Tumor type BCC Location of Skin Cancer: left helix Duration of Presence: ____1 yr Previous Treatment [x] No [ ] Yes When: Symptoms: [ ] pain [ ] bleeding [x] crusting [ ] other Previous History of Skin Cancer: [x] none [ ] list Family History of Skin Cancer [ x ] none [ ] melanoma [ ] basal cell [ ] squamous cell [ ] other Review of Systems: Check all that apply regarding other health problems Skin Hematological Eyes/Ears/Nose/Throat [x] normal [x] normal [ ] normal [ ] thick scars/keloids [ ] anemia [ ] glaucoma cataract surgery both eyes [ ] poor wound healing [ ] bleeding problems [ ] hearing aid [ ] herpes infection/cold sores [ ] enlarged lymph nodes [ ] cosmetic surgery [ ] other Cardiovascular Respiratory GI/Renal Musculoskeletal [x] normal [x] normal [x] normal [ ] normal [ ] angina (chest pain) [ ] asthma [ ] stomach ulcer [ ] arthritis [ ] heart attack (Year )[ ] emphysema/COPD [ ] colitis [x] artificial joint (Year _4-5 yrs both knees ) [ ] artificial heart valve [ ] other [ ] kidney disease [ ] other [ ] pacemaker/defibrillator [ ] other Neurological Psychiatric Endocrine Infections [x] normal [x] normal [x] normal [x] none [ ] stroke [ ] depression [ ] diabetes [ ] hepatitis [ ] seizures [ ] anxiety [ ] thyroid disease [ ] HIV/AIDS [ ] mental status change [ ] other [ ] other [ ] tuberculosis [ ] other [ ] other Do you take antibiotics prior to having a dental or any other procedure [ ] No [x] Yes Medical Problems (not listed above): none Do You Take [x] aspirin [ ] Plavix [ ] Coumadin [ ] Other blood thinners/anti- platelet medications __81 mg List Other Medications (prescription and over the counter including vitamins): Reviewed with patient Medication Allergies: [x] none [ ] list Occupation: (former if retired) Marital Status [ ] S [x] M [ ] D [ ] W [ ] Dentures [x] Glasses [ ] Contact Lenses [ ] Smoking [x] No [ ] Yes packs/day Alcohol [ ] No [x] Yes How much[ ] ____occ Physical Exam Vital signs within normal range. General: Pleasant, well-appearing, in no acute distress. Skin:Limited examination of head and neck reveals 0.4 x 0.4 cm erythematous papule located on the left helix. Assessment and Plan 1. BCC-left helix Reviewed treament options including wide local excision, Mohs micrographic surgery, electrodesiccation and curettage, and radiation therapy. Reviewed reconstruction options including second intention healing, linear repair, local flap, full thickness graft, and repair by Plastic Surgery or any other physician of the patient's choosing. The patient has elected to proceed with Mohs surgery. The patient has elected to have the post-Mohs defect repaired by us, and understands and acknowledges the risk of scarring. documented in this encounter Miscellaneous Notes Miscellaneous - Jose Antonio Casillas - 03/13/2011 12:01 PM EST Communication Body - Madeleine Knox LPN - 03/04/2011 6:01 PM EST 03/04/2011 Re: Pino Wong : 1935 [address] RIVKA RAMIREZ [facility] [place] [address] Ramirez, Today I saw Pino Wong in consultation for treatment of basal cell carcinoma of the left helix. I reviewed with the patient the various treatment and reconstruction options including their risks, benefits and alternatives. After evaluation, given the location, the tumor was removed under local anesthesia using the Mohs micrographic surgery. The post Mohs defect was repaired in the office on the same day. My findings are summarized below. Sutures will be removed in 5-7 days. I may request a routine follow up visit in 4-6 weeks to re-examine the site and assure everything is healing satisfactorily. However, the patient has been reminded to return to your office for further dermatologic care. Thank you for your kind referral and for the opportunity to care for your patients. Best regards, Fercho Hogan MD, PhD Surgery date: 03-04-2011 Site: left helix Stages: 3 Dx: BCC Post operative size: 1.5 x 0.5 cm Closure: FTSG repair documented in this encounter Plan of Treatment Upcoming Encounters Date Type Specialty Care Team Description 01/26/2022 Infusion Hematology and Oncology 01/26/2022 Office Visit Hematology and Oncology Mirta Sy MD [facility] DR ONCOLOGY DEPT. [place], [place] [address] (Wo rk) 01/28/2022 Office Visit Radiation Oncology Chilango Michel MD [facility] RADIATION [place], [place] [address] (Wo rk) 01/29/2022 Infusion Hematology and Oncology 02/05/2022 Infusion Hematology and Oncology documented as of this encounter Visit Diagnoses Diagnosis BCC (basal cell carcinoma) - Primary Basal cell carcinoma of skin, site unspe cified documented in this encounter Care Teams Key Filer Relationship Specialty Start Date End Date Geovanni Irwin MD PCP - General 12/09/10 10/16/[address] [place] [address] documented as of this encounter
--- OUTSIDE RECORDS SUMMARY | 2022-01-24 03:59 | XMS_ITS | Encounter Summary ---
:1935 Author Organization [facility] [place] [address] Care Team Providers Name Role Phone Amelia Gomes Sarina CARLOS Primary Care Provider [phone] Reason for Referral Diagnostic Test (Routine) - Closed Specialty Diagnoses / Procedures Referred By Contact Refer red To Contact Radiology Diagnoses Tonsil cancer Steve Kellogg PA [facility] Rad Nuclear Med Procedures NM PET CT Standard Plus Head and Neck [facility] [place] [address] [place] [address] Referral ID Status Reason Start Date Expiration Date Visits V isits Requested Authorized [id number] Closed Specialty 09/17/2021 03/19/2023 2 2 Service Requested Diagnostic Test (Routine) - Closed Specialty Diagnoses / Procedures Referred By Contact Refer red To Contact Radiology Diagnoses Tonsil cancer Steve Kellogg PA [facility] Rad Ct Scan Procedures CT Neck Soft Tissue w Contrast (Generic) [facility] [place] [address] [place] [address] Referral ID Status Reason Start Date Expiration Date Visits V isits Requested Authorized [id number] Closed Specialty 09/17/2021 03/19/2023 1 1 Service Requested Encounter Details Date Type Department Care Team Description 09/17/2021 Orders Only Otolaryngology at Steve Triplett, Tonsil cancer [facility] [place] [address] [facility] [phone] Otolaryngology [place], [place] [address] (Wo rk) Social History Tobacco [...] [facility] DR ONCOLOGY DEPT. [place], [place] [address] (Wo rk) 01/28/2022 Office Visit Radiation Oncology Chilango Michel MD [facility] RADIATION ONCOLO [place], [place] [address] (Wo rk) 01/29/2022 Infusion Hematology and Oncology 02/05/2022 Infusion Hematology and Oncology documented as of this encounter Results CT Neck Soft Tissue [...] who have questions please contact the health nurse healthcare manager that requested your imaging first. ? Electronically signed by: Alexandre Mitchell MD, [facility] ([phone]), at 10/10/2021 9:26 AM Narrative 10/10/2021 9:26 [...] ho have questions please contact the health nurse healthcare manager that requested your imaging first. Electronically signed by: Alexandre Mitchell MD, [facility] ([phone]), at 10/10/2021 9:26 AM Jarett Cedillo MD IMG CT ORDERABLES NM PET CT Standard Plus Head and [...] who have questions please contact the health nurse healthcare manager that requested your imaging first. ? Electronically signed by: Jeffery Herman MD, [facility] ([phone]), at 10/30/2021 9:26 AM --------ORIGINAL REPORT -------- EXAMINATION: NM PET CT STANDARD PLUS HEA D AND NECK CLINICAL HISTORY: Head/neck cancer, stag ing New right tonsil cancer. ??Please assess for extent of disease, metastases. 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 ? Electronically signed by: Jeffery Hemran MD, [facility] ([phone]), at 10/10/2021 10:57 AM Impressions 10/10/2021 10:57 [...] who have questions please contact the health nurse healthcare manager that requested your imaging first. ? Electronically signed by: Jeffery Herman MD, [facility] ([phone]), at 10/10/2021 10:57 AM Narrative 10/10/2021 10:57 AM EDT EXAMINATION: NM PET CT STANDARD PLUS HEAD AND NECK CLINICAL HISTORY: Head/neck cancer, stag ing New right tonsil cancer. ??Please assess for extent of disease, metastases. 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
--- OUTSIDE RECORDS SUMMARY | 2022-01-24 03:59 | XMS_ITS | Encounter Summary ---
:1935 Author Organization [place] [address] Care Team Providers Name Role Phone Geovanni Irwin MD Primary Care Provider Reason for Visit Reason Comments Skin Check FSE Encounter Details Date Type Department Care Team Description 08/05/2017 Office Visit Dermatology at [facility] Meghana Rodríguez [place] (actinic keratosis); Eris Kirby MD Seborrheic keratosis; [address] [facility] Multiple benign nevi; [place] [address] [address] Dermatofibroma; [phone] [facility] Inflamed seborr heic keratosis RD-DERMATOLGY [place], [place] [address] Social History Tobacco Use Types [...] encounter Progress Notes Meghana Rodríguez MD - 08/05/2017 9:30 AM EDT DERMATOLOGY ESTABLISHED PATIENT CLINIC NOTE Date of service: 08/05/2017 Pino Wong : 1935 Provider: Meghana Rodríguez MD Chief Complaint Patient presents with ??? Skin Check FSE SKIN HISTORY: Left helix: BCC -s/p Mohs 201008/27/2015 Left upper arm, shave removal: BCC, nodular and superficial pattern, with pigment. - s/p ED&C 09/10/15 Other: - Actinic keratoses - Seborrheic keratoses - Filiform wart?? - Dermal nevus - Dermatofibroma - History of tick bites HPI Pino Wong is a 82 y.o. male, established patient last seen by me on 12/08/2016. Here today, accompanied by his Angelina, for a 6-month follow-up and full skin exam (history of multiple BCC).Denies any significant changes in health. Concerned about lesions (a few that are itchy) on his neck, ears and bilateral forearms (left more so than right) he says were previously treated with LN2. Denies any lesions that are new, changing, painful, tender or bleeding. MEDS: Current Outpatient Prescriptions Medication Sig [...] not examined. Significant skin findings: A. Left dorsal hand x 1, left superior helix x 1: 0.2-0.3 cm scaly, irregular, pink papule. B. Head, torso and extremities: Scattered 0.4-0.6 cm pink-brown papules/plaque with waxy stuck on appearance. ?? C. Multiple 0.3-0.5 cm medium-brown, evenly-pigmented macules and papules. All with regular pigment pattern on dermoscopy. No pigmented lesions suspicious for melanoma. D. Left calf: Firm papule, centrally raised and sclerotic, with peripheral hyperpigmentation and dimpling with lateral pressure. ?? E. Left lateral brow x 1: Inflamed, stuck-on, well-demarcated, pink-brown papule. ASSESSMENT/PLAN: A. Actinic Keratoses - Discussed with patient the natural history and etiology of actinic keratoses. Discussed premalignent potential of these lesions. Discussed treatment options including risks, benefits, and alternatives. - Decision was made together with patient to proceed with Cryotherapy (LN2), see procedure note below. ?? Procedure Note: Procedure: Destruction of lesion(s) with cryotherapy. Number: 2 Location(s) as above Discussed procedure and expectations including risks (especifically discussed with pt the risk of hypopigmentation) and benefits. Verbal consent obtained. Frozen with LN2, 15-30 second thaw time, TWICE. There were no complications; the patient tolerated the procedure well. Post-procedure expectations and wound care were reviewed. Patient was instructed to observe skin closely for any changes and call if such occurs. B. Seborrheic Keratosis - Patient reassured lesions are benign in nature. - Patient advised to call if they become inflamed or irritated. C. Benign-Appearing Nevi, patient reassured - Patient instructed to return to clinic for re-evaluation of area if notes change, growth, bleeding, etc. - Advised to watch for anything new or changing. ?? D. Dermatofibroma - Discussed benign nature of lesion and provided reassurance. No treatment necessary at this time. E. Inflamed Seborrheic Keratoses - Discussed benign nature of lesion and provided reassurance. However, due to irritation present on today's exam and history of symptoms, discussed removal with liquid nitrogen today in the office. Discussed risk of hypopigmentation and discomfort, discussed alternatives, and reviewed wound care. The patient agreed to the procedure after discussing risks/benefits/alternatives. ? Procedure Note: Procedure: Destruction of lesions??with cryotherapy. Number: 1 Location: as above Discussed procedure and expectations including risks (including risk of hypopigmentation) and benefits. Verbal consent obtained. Frozen with LN2, 15-30 second thaw time, ONCE. There were no complications; the patient tolerated the procedure well. Post-procedure expectations and wound care were reviewed. Follow up: Return to clinic in the fall for full skin exam, or sooner if needed. Appointment made before exiting. Patient instructed to call with questions or concerns. I am documenting this encounter acting as the scribe for and in the presence of Dr. Rodríguez: Delia Fung, [facility] and Ashlie Andersen, Clinical Scribe I performed the above scribed service and agree with the accuracy of the documentation in this encounter. Meghana Rodríguez MD Program Analyst of Dermatology, Department of Labor Economics ProfessorProgram Analystbad credit collector (Dermatopathology) [facility] documented in this encounter Plan of Treatment Upcoming Encounters Date Type Specialty Care Team Description 01/26/2022 Infusion Hematology and Oncology 01/26/2022 Office Visit Hematology and Oncology Mirta Sy MD [facility] DR ONCOLOGY DEPT. [place], [place] [address] (Wo rk) 01/28/2022 Office Visit Radiation Oncology Chilango Michel MD [facility] RADIATION ONCOLO [place], [place] [address] (Wo rk) 01/29/2022 Infusion Hematology and Oncology 02/05/2022 Infusion Hematology and Oncology documented as of this encounter Visit Diagnoses Diagnosis [place] (actinic keratosis) Actinic keratosis Seborrheic keratosis Other seborrheic keratosis Multiple benign nevi Benign neoplasm of skin, site unspecifie d Dermatofibroma Benign neoplasm of skin, site unspecifie d Inflamed seborrheic keratosis documented in this encounter Care Teams Clinical Research Scientist Relationship Specialty Start Date End Date Geovanni Irwin MD PCP - General 12/09/10 10/16/[address] [place] [address] documented as of this encounter
--- OUTSIDE RECORDS SUMMARY | 2022-01-24 03:59 | XMS_ITS | Encounter Summary ---
:1935 Author Organization [facility] [place] [address] Care Team Providers Name Role Phone Geovanni Irwin MD Primary Care Provider Reason for Visit Reason Comments Skin Check Encounter Details Date Type Department Care Team Description 08/16/2013 Follow-Up Dermatology at [facility] Ac tinic keratosis (Primary Dx); Eris Kirby MD Seborrheic keratosis; [address] [facility] Multiple benign nevi; [place] [address] Dermatofibroma [phone] [facility] RAYSA-DERMATOLGY [place], [place] [address] Social History Tobacco Use Types [...] as of this encounter Patient Instructions Patient InstructionsKyra Coronel LPN - 08/16/2013 10:43 AM EDT Actinic Keratoses You have been [...] weeks. Please contact the Dermatology clinic at [phone] if the lesion has not fully resolved after 6 weeks. The nature of sun-induced photo-aging and skin cancers is discussed. Sun avoidance, protective clothing, and the use of 30-SPF sunscreens is advised. Observe closely for skin damage/changes, and call if such occurs. documented in this encounter Progress Notes Meghana Rodríguez MD - 08/16/2013 10:15 AM EDT DERMATOLOGY ESTABLISHED PATIENT CLINIC NOTE Date of service: 08/16/2013 Pino Wong : 1935 Provider: Meghana Rodríguez MD Chief Complaint Patient presents with ??? Skin Check SKIN HISTORY: 1.AK's 2.SK's 3.BCC left helix 2011-MOH's -Scar HPI Pino Wong is a 78 y.o. year old male who was last seen by Dr. Elliott on 08/17/12 and is established to oh. He is here for a full skin exam. He is concerned with a spot behind his right ear that has been present for about two weeks. He is present today with his who states that there are 2-3 spots on his back that she would like checked. He does not use sunscreen. He denies any family history of skin cancer. MEDS: Current Outpatient Prescriptions Medication Sig Dispense Refill ??? CIS Free Text Med - Aspirin ??? simvastatin (ZOCOR) 80 mg tablet 80MG, PO, Every other day ??? allopurinol (ZYLOPRIM) 300 mg tablet 300mg, PO, QAM ADR: No Known Allergies ROS General: feeling [...] were not examined. Significant skin findings: A. 0.2-0.3cm scaly irregular pink papule(s) right posterior auricular x2, right helix x1 B. Multiple 0.4-1 cm, brown-black papules/plaques with waxy stuck on appearance on the left mormon and back C. Multiple, 0.3-0.5cm, scattered medium-brown, evenly-pigmented macules and papules. All with regular pigment pattern on dermoscopy. No pigmented lesions suspicious for melanoma. D. Firm papule, centrally raised and sclerotic, peripheral hyperpigmentation on the left lateral leg. Dimpling with lateral pressure. ASSESSMENT/PLAN: A. Actinic keratosis Procedure Note: Procedure: Destruction of lesion(s) with cryotherapy. Number: 3 Location: as above Discussed procedure and expectations including risks (including risk of hypopigmentation) and benefits. Verbal consent obtained. Frozen with LN2, 15-30 second thaw time, TWICE. There were no complications; the patient tolerated the procedure well. Post-procedure expectations and wound care were reviewed. -Patient instructed to return to clinic for re-evaluation if lesion does not resolve with this treatment; as expected. B. Seborrheic Keratosis - Etiology discussed with patient - Patient reassured lesions are benign in nature - Education material provided C. Benign-appearing Nevi - All with even pigmentation and well defined margins. - We will continue to monitor. - Encouraged patient to monitor these lesions for any changes and call if such occurs. - Discussed ABCDE's of melanoma. Handout given. D. Dermatofibroma -Patient reassured area is benign in nature. The nature of sun-induced photo-aging and skin cancers is discussed. Sun avoidance, protective clothing, and the use of 30-SPF sunscreens is advised. Observe closely for skin damage/changes, and call if such occurs. Follow up: 1 year I am documenting this encounter acting as the scribe for and in the presence of Dr. Rodríguez: Kyra Coronel LPN I performed the above scribed service and agree with the accuracy of the documentation in this encounter. Meghana Rodríguez MD Home Housekeeper of Dermatology, Department of Float TenderHome Housekeepermedical care administrator (Dermatopathology) [facility] documented in this encounter Plan of Treatment Upcoming Encounters Date Type Specialty Care Team Description 01/26/2022 Infusion Hematology and Oncology 01/26/2022 Office Visit Hematology and Oncology Mirta Sy MD [facility] ONCOLOGY DEPT. [place], [place] [address] (Wo rk) 01/28/2022 Office Visit Radiation Oncology Chilango Michel MD [facility] RADIATION ONCOLO [place], [place] [address] (Wo rk) 01/29/2022 Infusion Hematology and Oncology 02/05/2022 Infusion Hematology and Oncology documented as of this encounter Visit Diagnoses Diagnosis Actinic keratosis - Primary Seborrheic keratosis Other seborrheic keratosis Multiple benign nevi Benign neoplasm of skin, site unspecifie d Dermatofibroma Benign neoplasm of skin, site unspecifie d documented in this encounter Care Teams Piece Work Checker Relationship Specialty Start Date End Date Geovanni Irwin MD PCP - General 12/09/10 10/16/[address] [place] [address] documented as of this encounter
--- OUTSIDE RECORDS SUMMARY | 2022-01-24 03:59 | XMS_ITS | Encounter Summary ---
:1935 [place] [address] Care Team Providers Name Role Phone Geovanni Irwin MD Primary Care Provider Reason for Visit Reason Comments Basal Cell Carcinoma Encounter Details Date Type Department Care Team Description 04/13/2011 Follow-Up Dermatology Fercho Hogan, BCC (basal cell [facility] MD carcinoma of skin) [facility] (Primary Dx) [place] [address] [facility] [address] [address]-DERMATOLOGY [place], [place] [address] (Wo rk) Social History Tobacco [...] documented as of this encounter Progress Notes Madeleine Knox, TANG - 04/13/2011 3:42 PM EST HPI: Patient is a 75 y.o. male is s/p Mohs of BCC from the left helix, which was repaired by full thickness skin graft. The patient presents for 6 week wound check. Denies complications. Exam: General: No acute distress Skin: Limited examination of left helix shows a well-healed graft, donor site incision on the left post auricular well healed. T Assessment and Plan 1. BCC left helix s/p MMS with FTSG repair Doing well. Follow up in 2-3 months. documented in this encounter Plan of Treatment Upcoming Encounters Date Type Specialty Care Team Description 01/26/2022 Infusion Hematology and Oncology 01/26/2022 Office Visit Hematology and Oncology Mirta Sy MD [facility] DR ONCOLOGY DEPT. [place], [place] [address] (Wo rk) 01/28/2022 Office Visit Radiation Oncology Chilango Michel MD [facility] RADIATION ONCOLO [place], [place] [address] (Wo rk) 01/29/2022 Infusion Hematology and Oncology 02/05/2022 Infusion Hematology and Oncology documented as of this encounter Visit Diagnoses Diagnosis BCC (basal cell carcinoma of skin) - Ciara robles Basal cell carcinoma of skin, site unspe cified documented in this encounter Care Teams Ob/Gyn Physician Relationship Specialty Start Date End Date Geovanni Irwin MD PCP - General 12/09/10 10/16/[address] [place] [address] documented as of this encounter
[2022-01-24 04:21] LABS: Abs Immature Grans 0.01 10^3/uL (0.0-0.06); Absolute Eosinophil Count 0.01 10^3/uL (0.0-0.7); Absolute Lymphocyte Count 0.34 10^3/uL (1.2-3.4); Absolute Monocyte Count 0.45 10^3/uL (0.1-0.8); Absolute Neutrophil Count 1.69 10^3/uL (1.2-6.7); Eosinophils % 0.4; HCT 33.7 % (40.0-50.0); HGB 11.5 g/dL (13.5-17.5); Immature Grans % 0.4; Lymphocytes % 13.6; MCH 31.6 pg (27.0-33.0); MCHC 34.1 % (32.0-36.0); MCV 93 fL (80-95); MPV 9.1 fL (8.0-11.0); Neutrophils % 67.6; Platelet Count 150 10^3/uL (130-400); RBC 3.64 10^6/uL (4.36-5.78); RDW 14.6 % (11.8-14.1); RDW-SD 46.5 fL
--- NOTE | 2022-01-24 04:25 | ED.GENADUL_ITS ---
Discharge Plan Disposition Patient Disposition: STILL A PATIENT Condition: Serious Discharge Details Primary Care Provider: Amelia Gomes ED Provider: Julio César Armenta Home Meds and New Rx's Prescriptions: No Action fluticasone propionate [Allergy Relief (fluticasone)] 50 mcg/actuation spray,suspension 2 spray DENZEL DAILY Qty: 18.2 12RF Rx Instructions: administer into each nostril triamcinolone acetonide 0.1 % cream 1 applic Topical BID Qty: 30 2RF Rx Instructions: Apply to rash simvastatin 80 mg tablet 40 mg PO EVERY OTHER DAY Qty: 45 4RF Rx Instructions: 0.5 TAB EVERY OTHER DAY allopurinol 300 mg tablet 300 mg PO DAILY Qty: 90 3RF Medical Decision Making 430 --86-year-old male with 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 Patient hemodynamically stable but hypoxic in the mid 80s. 2L nasal canula oxygen applied and saturations improved to upper 90s. Considered acute life-threatening intracranial traumatic hemorrhage. CT of the head was obtained. Consider urinary tract infection we will check urinalysis. --Nasal cannula removed and patient continues to saturate well on room air. Nursing suspects decentralization was related to his agitation. 530 -- CT of the head was interpreted by radiology: No acute intracranial process. Patient reassessed and remains altered. He feels warm to the touch at this point. Nursing attempted urinary catheterization twice unsuccessfully as patient was not cooperative. He is refusing to allow additional urine catheterizations. [place] catheter was placed. Labs reviewed and troponin elevated at 451. Consider coronary artery disease versus possible PE. Nursing attempting to obtain EKG. Plan to obtain blood cultures. Plan to obtain CT of the chest for pulmonary embolism and I will also check CT of the abdomen pelvis given limitations of history and physical exam at this point. 700 --patient now has elevated fever of 102. Lactate elevated. Patient has received 1L LR bolus. Tylenol 1g IV given. Patient continues to refuse EKG and urinary catheterization per nursing. CT chest and abd/pelv is pending. Consider meningitis. Patient will not tolerate LP. Antibiotic should not be delayed any further. I will initiate broad-spectrum coverage with vancomycin and ceftriaxone. --Patient was given additional Dilaudid 1mg IV for pain and still uncomfortable and anxious. Will give versed 2mg IM. HPI General Mode of arrival: ambulatory . Date/Time Provider Initiated Documentation: 01/24/22 03:37 . Limitations to Documentation: altered mental status . Information obtained by: patient . HPI Narrative: 86-year-old male with history of tonsillar squamous cell carcinoma , receiving chemotherapy and radiation therapy, presents with altered mental status. History and review of systems limited secondary to altered mental status. Patient's is present and notes that he was acting normal around 9 PM when he went to bed. She woke up around 3 to find him out of bed and not responsive to verbal stimuli sitting in the living area. Patient's notes that yesterday he was acting normal and feeling well. He has had tremor since starting radiation therapy. Related Data Home Medications Medication Instructions Recorded Confirmed triamcinolone acetonide 0.1 % 1 applic topical BID #30 grams 07/04/19 10/23/21 topical cream fluticasone propionate 50 2 spray intranasal DAILY #18.2 mL 10/15/20 10/23/21 mcg/actuation nasal spray,suspension (Allergy Relief (fluticasone)) simvastatin 80 mg tablet 40 mg PO EVERY OTHER DAY #45 tabs 09/30/21 10/23/21 allopurinol 300 mg tablet 300 mg PO DAILY #90 tab-caps 12/17/21 Previous Rx's Medication Instructions Recorded triamcinolone acetonide 0.1 % 1 applic topical BID #30 grams 07/04/19 topical cream fluticasone propionate 50 2 spray intranasal DAILY #18.2 mL 10/15/20 mcg/actuation nasal spray,suspension (Allergy Relief (fluticasone)) simvastatin 80 mg tablet 40 mg PO EVERY OTHER DAY #45 tabs 09/30/21 allopurinol 300 mg tablet 300 mg PO DAILY #90 tab-caps 12/17/21 Allergies Allergy/AdvReac Type Severity Reaction Status Date / Time No Known Allergies Allergy Verified 10/23/21 10:07 General Stated Complaint: AMS/LOC AMBER: 2 Review of Systems Unobtainable due to mental status PFSH All Active Problems Gout (Chronic) 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 Cedillo by Dr Pena Tonsillar mass (Acute) Dyspnea on exertion (Acute) Hyperlipidemia (Acute) Generalized osteoarthritis (Acute) Medical History Benign prostatic hyperplasia microwave TUR Celiac disease Gastric motor function disorder Inflamed seborrheic keratosis Kidney stone (03/03/07) 2020 in [place], several recurrances Polyp of colon Retinal artery branch occlusion Surgical History Colonoscopy - MAC (~2006) NEG BUT + family hx Cystoscopy History of transurethral resection of prostate Replacement of total knee joint x 2 Status post cystoscopy Status post total knee replacement bilateral Transurethral prostatectomy Family History Mother , 65 Heart disease Father , 59 Personal history of malignant neoplasm COLON Sister Heart disease Social History Smoking/Tobacco Use Status: Never Smoking risk assessment performed?: Yes Alcohol Intake: former Drug use: Never Substance use type: does not use Caregiver/Support person: No Household members: spouse Housing: house Pets and animals: Yes Pets and animals: dog(s) Sexually active: Yes Do you think of yourself as: straight/heterosexual Current gender identity: male What is your relationship status?: Do you belong to any clubs or organized social groups?: yes Panel score (0-1 are the most socially isolated patients): 2 What type of physical activity do you participate in: none Special kena needs: No Seatbelt use: always Drive intox or ride w/intox class a regional truck 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: No Do you feel safe in your relationship?: Yes Exam Const General: no acute distress Other: mild full body tremor HENMT Head: normocephalic and atraumatic Mouth: moist mucous membranes Eyes Conjunctivae: normal conjunctivae Sclera: normal sclerae Neck Neck: trachea midline and supple Resp Auscultation: clear to auscultation bilaterally, no rales, no rhonchi and no wheezes Cardio Rate: regular rate and not tachycardic Rhythm: regular rhythm GI Palpation: soft, not firm, no guarding, no masses, not rigid and nontender Skin General skin exam: no rashes or lesions noted Neuro General: patient awake and tone normal Cranial Nerves: PERRL Cognition: abnormal cognition (responding to painful stimuli) Other: unresponsive to verbal stimuli, Wendy Extrem General: no edema Psych Appearance: grossly normal Course Vital Signs Vital signs: Vital Signs Temperature 36.6 C 01/24/22 03:32 Pulse 84 01/24/22 03:32 Respiratory Rate 22 01/24/22 03:32 Blood Pressure 167/91 H 01/24/22 03:32 Pulse Oximetry 98 01/24/22 03:32 Temperature 36.6 C 01/24/22 03:32 Temperature Source Tympanic 01/24/22 03:32 Pulse 84 01/24/22 03:32 Respiratory Rate 22 01/24/22 03:32 Blood Pressure 167/91 H 01/24/22 03:32 Blood Pressure Position Supine 01/24/22 03:32 Pulse Oximetry 98 01/24/22 03:32 Oxygen Delivery Method Room Air 01/24/22 03:32 Oxygen Flow Rate 0 01/24/22 03:32 Lab/Test Results Lab/Test Results: Laboratory Tests Range/Units 01/24/22 04:05 WBC (4.4-10.8) 10^3/uL 2.50 L RBC (4.36-5.78) 10^6/uL 3.64 L Hgb (13.5-17.5) g/dL 11.5 L Hct (40.0-50.0) % 33.7 L MCV (80-95) fL 93 MCH (27.0-33.0) pg 31.6 MCHC (32.0-36.0) % 34.1 RDW (11.8-14.1) % 14.6 H Plt Count (130-400) 10^3/uL 150 MPV (8.0-11.0) fL 9.1 Immature Gran % 0.4 Neutrophils % 67.6 Lymphocytes % 13.6 Monocytes % 18.0 Eosinophils % 0.4 Basophils % 0.0 Nucleated RBC % (0.0-0.3) % 0.0 Absolute Neutrophils (1.2-6.7) 10^3/uL 1.69 Absolute Lymphocytes (1.2-3.4) 10^3/uL 0.34 L Absolute Monocytes (0.1-0.8) 10^3/uL 0.45 Absolute Eosinophils (0.0-0.7) 10^3/uL 0.01 Absolute Basophils (0.0-0.2) 10^3/uL 0.00
[2022-01-24 04:47] LABS: Source Nasal/Nares
[2022-01-24 04:47] LABS: Ammonia 20 umol/L (11-32)
[2022-01-24 04:50] LABS: ALT 41 U/L (16-63); AST 24 U/L (15-37); Albumin 3.2 g/dL (3.4-5.0); Alkaline Phosphatase 57 U/L (46-116); Anion Gap 7.5 mmol/L (3-11); BUN 26 mg/dL (7-18); Bilirubin, Total 0.6 mg/dL (0.2-1.0); CO2 28.5 mmol/L (21.0-32.0); CREATININE 1.2 mg/dL (0.70-1.30); Chloride 98 mmol/L (98-107); Estimated GFR 59.63 (mL/min/1.73m2); Glucose 126 mg/dL (74-106); Magnesium 1.9 mg/dL (1.8-2.4); Potassium 3.8 mmol/L (3.5-5.1); Sodium 134 mmol/L (136-145); TSH (W/Ref FT4) 1.46 uIU/mL (0.36-3.74); Total Protein 6.5 g/dL (6.4-8.2)
[2022-01-24 04:51] LABS: ETHANOL BLOOD < 3.0 mg/dL (<10)
[2022-01-24 04:52] LABS: Troponin I 451 ng/L (<or=60)
--- NOTE | 2022-01-24 05:06 | DI.VRAD_ITS ---
PROCEDURE INFORMATION: Exam: CT Head Without Contrast Exam date and time: 01/24/2022 4:25 AM Age: 86 years old Clinical indication: Altered mental status/memory loss; Confusion or disorientation; Additional info: PT has slight tremor that May have caused blurring of the images TECHNIQUE: Imaging protocol: Computed tomography of the head without contrast. COMPARISON: No relevant prior studies available. FINDINGS: Brain: The examination is limited by motion artifact. There are periventricular white matter lucencies compatible with chronic microvascular ischemic changes. No intracranial hemorrhage. No mass effect or midline shift. Cerebral ventricles: The ventricles and sulci are prominent compatible with age-related involutional changes. Paranasal sinuses: Visualized sinuses are unremarkable. No fluid levels. Mastoid air cells: Visualized mastoid air cells are well aerated. Bones/joints: Unremarkable. No acute fracture. Soft tissues: Unremarkable. IMPRESSION: No acute intracranial findings. Dictated and Authenticated by: Preston Nelson MD. Ordering:ALETHEA Angela MD
--- NOTE | 2022-01-24 05:15 | DI.CT_ITS ---
Exam(s) CT CHEST PE ABD PELVIS W EXAM: CT CHEST PE ABD PELVIS W CLINICAL HISTORY: hypoxia, tonsillar cancer, altered mentation, feve. TECHNIQUE: Imaging Protocol: Axial CT angiography was performed with multi-slice acquisition and mu lti-planar and/or 3D reconstructions. CONTRAST MATERIAL: Intravenous: Omnipaque 350contrast volume:100 mL COMPARISON: CT RENAL COLIC WO CONTRAST from 04/10/2008 FINDINGS: The examination is limited due to patient motion artifact. CHEST: Tracheobronchial tree: Patent where visualized. Pulmonary parenchyma: No consolidation or dominant measurable mass. No architectural distortion. Mild atelectasis or scarring in the right lung base. Pulmonary Arteries: There is limited evaluation of the segmental and subsegmental pulmonary arteries due to poor inspiration and patient motion artifact. No central pulmonary embolus is identified. Mediastinum and Jayashree: No dominant adenopathy or fluid collection. There is fluid seen within the esop hagus. Visualized thyroid gland: Unremarkable. Pleura: No effusion or pneumothorax. Heart: The heart is not dilated. Coronary artery calcification is present. No pericardial effusion. Aorta: Thoracic aorta non-dilated. No evidence of dissection. Atherosclerosis is present. Bones: Within normal limits for the patient's age. Soft tissues: Unremarkable. Tubes, Catheters, and Lines: An Eeiazg-V-Ozxl catheter is seen in the right chest wall. There is a p ercutaneous gastrostomy tube in place. ABDOMEN: Liver: Normal density. No measurable mass. Portal, Superior Mesenteric, and Splenic Veins: Unremarkable. Gallbladder and Biliary Tract: No radiodense calculus or dilation. Pancreas: Normal density, no abnormal calcifications or inflammatory process. Spleen: Normal. Adrenals: No masses seen. Kidneys: Normal size, contour and axis. There is bilateral nephrolithiasis. There is a 1.4 x 1.7 cm soft tissue mass in the superior pole of the left kidney. There is dilatation of the collecting syst ems, left greater than right. Abdominal Aorta: Abdominal portion non-dilated. Atherosclerosis is present. Bowel: There is a large amount of stool in the rectum. There is diverticulosis seen in the sigmoid c olon but no evidence of acute diverticulitis. There is a percutaneous gastrostomy tube in place. Th ere is no evidence of acute appendicitis. No evidence of bowel obstruction. Peritoneal Cavity: No ascites, collection or mesenteric inflammatory response. No free air. Lymph Nodes: Within normal limits. Bones: Within normal limits for the patient's age. Soft Tissues: Unremarkable. PELVIS: Bladder: Distended urinary bladder. Reproductive Organs: Unremarkable as visualized. Lymph Nodes: Within normal limits. Bones: Within normal limits. IMPRESSION: 1. No evidence pulmonary embolism, thoracic aortic dissection or aneurysm. 2. No acute pulmonary process. 3. There is a distended urinary bladder and dilatation of the collecting systems, left greater than r ight. No obstructing stone is seen. The findings may be secondary to chronic bladder outlet obstruc tion. 4. There is a large amount of stool in the rectum. 5. 1.4 x 1.7 cm soft tissue density lesion in the left kidney. It does not meet the criteria for sim ple cyst. A mass cannot be excluded. MRI may be considered for further evaluation if clinically jorge luis ropriate. RADIATION DOSE DELIVERED: 1,695.52mGy.cm Total DLP DATA REPOSITORY: All CT scans at this facility are submitted to the National Radiology Data Registry (NRDR) Dose Index Registry (DIR) with the [employer] (ACR). RADIATION OPTIMIZATION: All CT scans at this facility use at least one of these dose optimization te chniques: automated exposure control; mA and/or kV adjustment per patient size (includes targeted exa ms where dose is matched to clinical indication); or iterative reconstruction.
--- NOTE | 2022-01-24 05:15 | RT.EKG_ITS ---
APPROVED REPORT Exam: Resting ECG Reason for Exam: elevated trop, altered mentation Patient Location: E HR:98 bpm ECG Measurements Heart Rate 98 AXIS NC 256 P 79 QRSd 99 QRS 66 QT 341 T 56 QTc 436 Conclusion Sinus rhythm...normal P axis, V-rate 60- 99 Prolonged NC interval...NC >215, V-rate 91-120 Consider left ventricular hypertrophy...(S V1+R V5/V6) >3.50mV
[2022-01-24 05:19] LABS: COVID-19 PCR Negative (Negative)
[2022-01-24] MEDS: HYDROmorphone 2 MG/ML SYR 1 MG IVP ×2 (05:38→07:29)
[2022-01-24] MEDS: Lactated Ringers 1,000 ML 1000 ML IV (05:46)
[2022-01-24] MEDS: ACETAMINOPHEN 1,000 MG/100 ML BTL 400 MG IVPB (06:06)
[2022-01-24] MEDS: Lidocaine 2% Jelly 6 ML SYR ×2 (06:08→09:29)
[2022-01-24 06:58] LABS: Lactate 2.2 mmol/L (0.6-1.4)
[2022-01-24 07:05] LABS: Bilirubin Negative (Negative); Blood Large (Negative); Clarity Clear (Clear); Glucose Negative (Negative); Ketones Negative (Negative); Leukocyte Esterase Negative (Negative); Nitrite Negative (Negative); Urobilinogen 0.2 EU/dL (Up TO 0.2); pH 8.5 (5-8)
[2022-01-24 07:18] LABS: Bacteria Negative HPF (Negative); C & S Indicated? No; Casts Negative LPF (Negative); Crystals Negative HPF (Negative); Epithelial Cells Few HPF (Negative); Mucus Negative (Negative); RBC >50 HPF (0-2); WBC 0-2 HPF (0-5)
[2022-01-24 07:26] LABS: *AMPHETAMINES SCREEN URINE Negative (Negative); *BARBITURATES SCREEN URINE Negative (Negative); *BENZODIAZEPINES SCREEN URINE Negative (Negative); Cannabinoids THC Negative (Negative); Cocaine Screen,Urine Negative (Negative); METHADONE URINE SCREEN Negative (Negative); OPIATES URINE SCREEN Negative (Negative)
[2022-01-24 07:27] LABS: Tricyclic Antidepressants Negative (Negative)
[2022-01-24] MEDS: Midazolam 2 MG/2 ML VIAL IM (07:51)
[2022-01-24] MEDS: cefTRIAXone 2 GM/50 ML BAG IVPB (08:10)
[2022-01-24] MEDS: Omnipaque 350 MG/ML 100 ML BTL IJ (08:39)
--- NOTE | 2022-01-24 09:05 | DI.VRAD_ITS ---
PROCEDURE INFORMATION: Exam: CTA Chest With Contrast CTA Abdomen With Contrast Exam date and time: 01/24/2022 8:20 AM Age: 86 years old Clinical indication: Other: Hypoxia, AMS; Fever; Prior surgery TECHNIQUE: Imaging protocol: Computed tomographic angiography of the chest with contrast. Computed tomographic angiography of the abdomen with contrast. 3D rendering (Not supervised by radiologist): MIP and/or 3D reconstructed images were created by the technologist. COMPARISON: US AAA SCREENING 09/01/2016 5:03 PM FINDINGS: Tubes, catheters and devices: There is a MediPort with tip in the SVC. A PEG tube is seen in the stomach. VASCULATURE: Pulmonary arteries: Normal. No pulmonary emboli. Aorta: Measures up to 37 mm in diameter. No aortic aneurysm. No aortic dissection. Celiac trunk and mesenteric arteries: No occlusion or significant stenosis. Renal arteries: No occlusion or significant stenosis. CHEST: Lungs: Low lung volumes with bibasilar atelectasis. Pleural spaces: Unremarkable. No pneumothorax. No pleural effusion. Heart: There is coronary artery calcification. Normal heart size. ABDOMEN AND PELVIS: Liver: No mass. Gallbladder and bile ducts: The gallbladder demonstrates layering density consistent with noncalcified stones or sludge. Pancreas: Unremarkable. No mass. No ductal dilation. Spleen: Unremarkable. No splenomegaly. Adrenal glands: Unremarkable. No mass. Kidneys and ureters: Bilateral moderate hydronephrosis. No solid mass. No obstructing stones. Intermediate density/indeterminate 15 mm lesion at the upper pole left kidney. There are multiple non-obstructing bilateral renal calculi. Stomach and bowel: The stomach and small bowel are normal. There is diverticular disease of the colon, without evidence of acute diverticulitis. No perforation, or abscess. No signs or history of bleeding provided. There is no evidence of intestinal perforation or obstruction. The cecum is elevated, lying anterior to the left lobe of the liver. Appendix: The appendix is not identified with certainty, but there are no secondary C.T. findings of appendicitis. Intraperitoneal space: Unremarkable. No free air. No significant fluid collection. Urinary bladder: Distended urinary bladder. Reproductive: Prior TURP Lymph nodes: Unremarkable. No enlarged lymph nodes. Bones/joints: Degenerative changes of the spine without acute osseous abnormality. Soft tissues: Unremarkable. IMPRESSION: Distended urinary bladder and bilateral moderate to severe hydronephrosis. No obstructing stones are seen. Findings may be secondary to bladder outlet obstruction. Evidence of prior TURP. Additional findings as described. Dictated and Authenticated by: Haley Wilburn MD. Ordering:ALETHEA Angela MD
[2022-01-24 09:18] LABS: Lactate 1.9 mmol/L (0.6-1.4)
[2022-01-24] MEDS: VANCOMYCIN/WATER (PEG) 2 GM/400 ML BAG IV (09:22)
[2022-01-24 09:41] LABS: Troponin I 421 ng/L (<or=60)
[2022-01-24 13:07] LABS: Creatine Kinase 44 U/L (39-308)
--- NOTE | 2022-01-24 13:24 | ED.PROG_ITS ---
Date of service: 01/24/22 Time of Service: 13:24 Medical Decision Making Patient remained stable, however still with decreased interactivity from his baseline. Intermittently slightly agitated. Downtrending lactate, downtrending troponin. Consider component of cisplatin induced cardiotoxicity, however negative EKG no chest pain. Given fever and altered mental status and LP was performed at the bedside, unsuccessful due to large amount of sclerotic tissue/stenosis in the lumbar region. Attempted multiple sites without success. Patient tolerated procedure due to palpable and local anesthetic. We will continue with IV antibiotics. Have drawn a CPK to evaluate for possible underlying prior seizures. If CPK is elevated will reach out to Center with EEG capabilities for possible transfer. 13: 56 CK normal. No seizure-like activity here in the department. Patient resting calm cooperative. Spontaneously moving. Given unsuccessful LP and need for further diagnostic information related to possible meningo encephalitis, anesthesia team has been called in to attempt bedside LP; if unsuccessful, hospitalist requesting that patient be transferred to a facility that is able to perform LP under radiographic technique then can be transferred back for admission. 15: 09 anesthesia team was consulted at bedside, they are successful obtaining LP. Patient tolerated procedure well clear CSF. Awaiting CSF studies. Initial blood cultures were sent on arrival, currently in the process of drawing a blood culture from patient's port. Patient to be admitted for further evaluation of mental status continued antibiotic therapy and follow-up culture results. Procedures Lumbar Puncture Time Out Performed: Yes Patient Position: right lateral decubitus Skin Prep: 0.5% Chlorhexidine/Alcohol Local Anesthetic: Lidocaine 1% Amount of anesthesia used (mL): 5 Spinal Needle Gauge: 20G Interspace Used: L4-L5 Additional Comments: Unsuccessful LP due to stenotic flow sclerotic lumbar region. Sign Out Sign Out Data: Sign Out Comment: Patient is here with altered mental status, now febrile, not cooperative with diagnostic work-up. LP could not be obtained. Patient is being covered broadly with vancomycin and ceftriaxone IV. Plan for CT of the chest abdomen pelvis. Last updated by Julio César Armenta MD at 01/24/22 07:47 Discharge Plan Disposition Patient Disposition: [facility] INPATIENT Condition: Fair Discharge Details Clinical Impression: Altered mental state, Fever, Acute urinary retention Primary Care Provider: Amelia Gomes ED Provider: Rj Alexander Home Meds and New Rx's Prescriptions: No Action triamcinolone acetonide 0.1 % cream 1 applic Topical BID Qty: 30 2RF Rx Instructions: Apply to rash oxycodone 5 mg/5 mL solution 10 ml feeding tube 4-6XD Rx Instructions: every 4 hours for pain. ondansetron 8 mg Tablet,Disintegrating 8 mg PO Q8H PRN
[2022-01-24 13:48] LABS: Creatine Kinase 52 U/L (39-308)
--- NOTE | 2022-01-24 14:45 | ANES.PROC_ITS ---
Lumbar Puncture Date Performed: 01/24/22 Procedure Time: 14:19 Requesting Provider: Rj Alexander Procedure Location: Emergency Department Standard Monitors Applied: SpO2 Patient Position: Sitting (First 2 attempts right lateral decubitus unsuccessful, changed to sitting) Timeout Performed: Yes Sedation Given (Indicate Dose Given): No Sedation given Patient Mental Status: Awake (Very disoriented, minimally verbal) Sterility: Hand Hygiene, Surgical Cap, Surgical Mask, Sterile Gloves, Sterile Drape/Sheet and Chlorhexidine Placement Site: L3-L4 Interspace Spinal Needle Type: Quincke 22 Gauge Needle Length: 3.5 Inch Lumbar Puncture Procedure: Site Prepped, Sterile Drape Placed, 1% Lidocaine to skin and subcutaneous tissue with 25G needle, Spinal Needle Placed, Negative Heme, Positive CSF Flow, CSF Specimen placed into Tubes in Sequential Order, Specimen Labeled, Sent to Lab (Per [employer]PER) and Bone Contacted despite needle repositioning (first 2 attempts) Ultrasound: Not Used Paresthesia: None Number of Previous Attempts by Other Providers: 4 Number of Attempts (See previous attempts in note section): 3 Procedure Tolerated: No Complications Procedure Outcome: Successful Performed By: Basilia Mallory Other (not listed above): Patient with altered mental status unable to obtain consent.
[2022-01-24 15:17] LABS: Clarity Clear; RBC 4 /mm3 (0-5); Tube # 4; WBC 2 /uL (0-5); Xanthochromia Absent
[2022-01-24 15:18] LABS: Glucose (CSF) 66 mg/dL (40-70); Total Protein (CSF) 44 mg/dL (15-45)
--- NOTE | 2022-01-24 15:20 | W.PM.HP.N ---
Date of service: 01/24/22 Time of Service: 15:20 Assessment and Plan Assessment and plan (1) Sepsis: Status: Acute Assessment and plan: bacterial meningitis ruled out. Await blood cultures. Will cover with vancomycin/cefepime. (2) Encephalopathy: Status: Acute Assessment and plan: Improving. Ddx: due to excessive opioid therapy +/- septic process +/- seizure event +/- metastatic disease +/- urinary retention. Hold opioids. Treat infection. Monitor for seizures. Suspect will need an MRI. Consider neurology consult. Mane catheter. 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 Obtain speech therapy c/s. to bring in TF for us. Would hold off for now given reports of nausea/dry heaving at home. (5) Elevated troponin: Status: Acute Assessment and plan: Suspect type 2 NSTEMI in setting of acute septic process. Arrythmic event not ruled out given an episode of unresponsiveness, though that sounds more like encephalopathy and much less like a syncopal event. Will monitor on tele. Obtain echo on Wednesday. (6) DVT prophylaxis: Status: Acute Assessment and plan: SCDs. Holding off on chemical DVT ppx given LP today (7) Discharge planning issues: Status: Acute Assessment and plan: DNR/DNI per my conversation with the who is bringing her advanced directives in. History of Present Illness History of Present Illness Chief Complaint: Altered mental status Narrative: Mr Wong is an 86 year old male with PMHx of squamous cell carcinoma of the tonsills on chemo (cisplatin)/radiation (last chemotherapy on 01/20/22), w/ R chest infusaport in place, as well as h/o BPH s/p TURP, dysphagia, pain related to cancer on opioid therapy, who was noted by his to be sitting in a chair slumped over mumbling and incoherent today circa 2:30 am. The mumbling eventually stopped, and the patient became unresponsive, not opening eyes, not responding to voice, not following commands. When EMS got there, he was agitated when touched, but did not follow commands in any meaningful way. ER provider described him as having periods of agitation and periods of hypoactive delirium. He was acting normally yesterday. describes no fever at home. He has been having nausea and dry heaving for about 5 weeks (since week 2 of chemo/XRT). He was febrile up to 39.[address] head was normal. The patient was not cooperative with an LP initially, but did eventually calm down enough to have it. Results are not c/w bacterial meningitis. He was intitiated on empiric antibiotics (vancomycin/ceftriaxone). His infusaport has been cultured as well. Additionally, on this visit to the ER, the patient was found to have moderate to severe bilateral hydronephrosis with a distended bladder and obstruction at the level of bladder outlet on CT. A mane catheter was successfully placed, and since then reportedly the patient's delirium has improved somewhat. Finally, the patient was found to have an elevated troponin of 451, which trended down to 421 without any obvious cardiac symptoms, though the patient is confused. CPK was negative. There was no witnessed seizure, but the does describe a tremor in his 2nd digit R hand that he has at home and currently has here. EKG did not show acute ischemia. Admission to the hospitalist service was requested. On arrival to the medical surgical floor, the patient is awake and A&Ox1. He denies pain, including chest pain, headache, shortness of breath, nausea. He is thirsty. Per , this is the best he's been all day. 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 Cedillo by Dr Pena Tonsillar mass (Acute) Dyspnea on exertion (Acute) Hyperlipidemia (Acute) Generalized osteoarthritis (Acute) Medical History Benign prostatic hyperplasia microwave TUR Celiac disease Gastric motor function disorder Inflamed seborrheic keratosis Kidney stone (03/03/07) 2020 in [place], several recurrances Polyp of colon Retinal artery branch occlusion Surgical History Colonoscopy - MAC (~2006) NEG BUT + family hx Cystoscopy History of transurethral resection of prostate Replacement of total knee joint x 2 Status post cystoscopy Status post total knee replacement bilateral Transurethral prostatectomy Family History Mother , 65 Heart disease Father , 59 Personal history of malignant neoplasm COLON Sister Heart disease Social History Smoking/Tobacco Use Status: Never Smoking risk assessment performed?: Yes Alcohol Intake: former Drug use: Never Substance use type: does not use Caregiver/Support person: No Household members: spouse Housing: house Pets and animals: Yes Pets and animals: dog(s) Sexually active: Yes Do you think of yourself as: straight/heterosexual Current gender identity: male What is your relationship status?: Do you belong to any clubs or organized social groups?: yes Panel score (0-1 are the most socially isolated patients): 2 What type of physical activity do you participate in: none Special kena needs: No Seatbelt use: always Drive intox or ride w/intox oil truck driver: No Do you feel safe in your relationship?: Yes Meds Allergies and Home Medications Allergies Allergy/AdvReac Type Severity Reaction Status Date / Time adhesive tape Allergy Skin Rash Unverified 01/24/22 11:32 Home Medications Medication Instructions Recorded Confirmed Type triamcinolone acetonide 0.1 % 1 applic topical BID #30 grams 07/04/19 01/24/22 Rx topical cream ondansetron 8 mg disintegrating 8 mg PO Q8H PRN 01/24/22 01/24/22 History tablet oxycodone 5 mg/5 mL oral solution 10 ml feeding tube 4-6XD 01/24/22 01/24/22 History Exam Narrative Exam Narrative: General: Elderly male who is laying flat in bed on RA, A&Ox1, follows commands Neurological: A&Ox1, no focal deficits, mildly tremulous, especially evident in his 2nd digit RUE; pinpoint pupils. Psychiatric: difficult to assess given mental status Skin: Visible skin dry, intact; warm to touch HEENT: Atraumatic, normocephalic, EOMI, very dry MM, no submandibular or cervical lymphadenopathy, no goiter or JVD Cardiovascular: RRR, no m/r/g Lungs: CTAB anteriorly Gastrointestinal: soft, nontender, nondistended - LUQ gastrostomy tube in place Genitourinary: has a mane Extremities: no edema BLEs Results Imaging Additional studies: CT head w/o contrast: No acute intracranial findings. CT chest/abdomen/pelvis: Distended urinary bladder and bilateral moderate to severe hydronephrosis. No obstructing stones are seen. Findings may be secondary to bladder outlet obstruction. Evidence of prior TURP. EKG: ST, 1st degree AV block, IA segment depressions in inferior leads, no acute ischemia Labs Result diagrams: 01/24/22 04:05 01/24/22 04:05 Labs: Laboratory Results - last 24 hr 01/24/22 01/24/22 01/24/22 04:05 04:05 04:05 WBC 2.50 L RBC 3.64 L Hgb 11.5 L Hct 33.7 L MCV 93 MCH 31.6 MCHC 34.1 RDW 14.6 H Plt Count 150 MPV 9.1 Immature Gran % 0.4 Neutrophils % 67.6 Lymphocytes % 13.6 Monocytes % 18.0 Eosinophils % 0.4 Basophils % 0.0 Nucleated RBC % 0.0 Absolute Neutrophils 1.69 Absolute Lymphocytes 0.34 L Absolute Monocytes 0.45 Absolute Eosinophils 0.01 Absolute Basophils 0.00 VBG Lactate Sodium 134 L Potassium 3.8 Chloride 98 Carbon Dioxide 28.5 Anion Gap 7.5 BUN 26 H Creatinine 1.2 Est GFR (CKD-EPI 2020) 59.63 Glucose 126 H Calcium 9.0 Magnesium 1.9 Total Bilirubin 0.6 AST 24 ALT 41 Alkaline Phosphatase 57 Ammonia 20 Creatine Kinase Troponin I 451 H* Total Protein 6.5 Albumin 3.2 L TSH 1.46 Urine Color Urine Clarity Urine pH Ur Specific [place] Urine Protein Urine Ketones Urine Blood Urine Nitrite Urine Bilirubin Urine Urobilinogen Ur Leukocyte Esterase Urine RBC Urine WBC Ur Epithelial Cells Urine Crystals Urine Bacteria Urine Casts Urine Mucus Ur Culture Indicated? Urine Glucose Urine Opiates Screen Urine Methadone Screen Ur Barbiturates Screen Ur Tricyclics Screen Ur Amphetamines Screen U Benzodiazepines Scrn Urine Cocaine Screen Ur THC Screen Ethyl Alcohol < 3.0 COVID-19 Source SARS-CoV-2 (PCR) 01/24/22 01/24/22 01/24/22 04:43 06:40 06:45 WBC RBC Hgb Hct MCV MCH MCHC RDW Plt Count MPV Immature Gran % Neutrophils % Lymphocytes % Monocytes % Eosinophils % Basophils % Nucleated RBC % Absolute Neutrophils Absolute Lymphocytes Absolute Monocytes Absolute Eosinophils Absolute Basophils VBG Lactate 2.2 H* Sodium Potassium Chloride Carbon Dioxide Anion Gap BUN Creatinine Est GFR (CKD-EPI 2020) Glucose Calcium Magnesium Total Bilirubin AST ALT Alkaline Phosphatase [place] Creatine Kinase Troponin I Total Protein Albumin TSH Urine Color Urine Clarity Urine pH Ur Specific [place] Urine Protein Urine Ketones Urine Blood Urine Nitrite Urine Bilirubin Urine Urobilinogen Ur Leukocyte Esterase Urine RBC Urine WBC Ur Epithelial Cells Urine Crystals Urine Bacteria Urine Casts Urine Mucus Ur Culture Indicated? Urine Glucose Urine Opiates Screen Negative Urine Methadone Screen Negative Ur Barbiturates Screen Negative Ur Tricyclics Screen Negative Ur Amphetamines Screen Negative U Benzodiazepines Scrn Negative Urine Cocaine Screen Negative Ur THC Screen Negative Ethyl Alcohol COVID-19 Source Nasal/Nares SARS-CoV-2 (PCR) Negative 01/24/22 01/24/22 01/24/22 06:45 09:13 09:13 WBC RBC Hgb Hct MCV MCH MCHC RDW Plt Count MPV Immature Gran % Neutrophils % Lymphocytes % Monocytes % Eosinophils % Basophils % Nucleated RBC % Absolute Neutrophils Absolute Lymphocytes Absolute Monocytes Absolute Eosinophils Absolute Basophils VBG Lactate 1.9 H Sodium Potassium Chloride Carbon Dioxide Anion Gap BUN Creatinine Est GFR (CKD-EPI 2020) Glucose Calcium Magnesium Total Bilirubin AST ALT Alkaline Phosphatase [place] Creatine Kinase Troponin I 421 H* Total Protein Albumin TSH Urine Color [place] Urine Clarity Clear Urine pH 8.5 H Ur Specific [place] 1.020 Urine Protein Negative Urine Ketones Negative Urine Blood Large H Urine Nitrite Negative Urine Bilirubin Negative Urine Urobilinogen 0.2 Ur Leukocyte Esterase Negative Urine RBC >50 H Urine WBC 0-2 Ur Epithelial Cells Few Urine Crystals Negative Urine Bacteria Negative Urine Casts Negative Urine Mucus Negative Ur Culture Indicated? No Urine Glucose Negative Urine Opiates Screen Urine Methadone Screen Ur Barbiturates Screen Ur Tricyclics Screen Ur Amphetamines Screen U Benzodiazepines Scrn Urine Cocaine Screen Ur THC Screen Ethyl Alcohol COVID-19 Source SARS-CoV-2 (PCR) 01/24/22 01/24/22 09:13 13:20 WBC RBC Hgb Hct MCV MCH MCHC RDW Plt Count MPV Immature Gran % Neutrophils % Lymphocytes % Monocytes % Eosinophils % Basophils % Nucleated RBC % Absolute Neutrophils Absolute Lymphocytes Absolute Monocytes Absolute Eosinophils Absolute Basophils VBG Lactate Sodium Potassium Chloride Carbon Dioxide Anion Gap BUN Creatinine Est GFR (CKD-EPI 2020) Glucose Calcium Magnesium Total Bilirubin AST ALT Alkaline Phosphatase [place] Creatine Kinase 44 52 Troponin I Total Protein Albumin TSH Urine Color Urine Clarity Urine pH Ur Specific [place] Urine Protein Urine Ketones Urine Blood Urine Nitrite Urine Bilirubin Urine Urobilinogen Ur Leukocyte Esterase Urine RBC Urine WBC Ur Epithelial Cells Urine Crystals Urine Bacteria Urine Casts Urine Mucus Ur Culture Indicated? Urine Glucose Urine Opiates Screen Urine Methadone Screen Ur Barbiturates Screen Ur Tricyclics Screen Ur Amphetamines Screen U Benzodiazepines Scrn Urine Cocaine Screen Ur THC Screen Ethyl Alcohol COVID-19 Source SARS-CoV-2 (PCR) Last Vital Signs Temp 37.1 C 01/24/22 13:52 Pulse 90 01/24/22 11:46 Resp 15 01/24/22 11:50 BP 137/76 01/24/22 11:46 Pulse Ox 100 01/24/22 07:00
[2022-01-24] MEDS: Heparin 500 UNITS/5 ML SYRINGE (15:24)
[2022-01-24 15:36] LABS: Lab Add On Test DONE
[2022-01-24 16:11] LABS: Procalcitonin < 0.1 ng/mL
--- OUTSIDE RECORDS SUMMARY | 2022-01-24 16:43 | XMS_ITS | Encounter Summary ---
:1935 Author Organization [facility] Address [address] [place] [address] Care Team Providers Name Role Phone Unavailable Primary Care Provider Unavailable Encounter Details Date Type Department Care Team Description 07/28/2006 Results Only [facility] - Geovanni Mueller MD conversion [address] [place] [id number] Social History Tobacco Use Types Packs/Day Years [...] PINO WONG ? Accession #: ? [id number] ? : ? 1935 (Age: 71) ??M ? Collect Date: ? 07/28/2006 ? Location: ? [facility] ? Receive Date: ? 007 ? Provider: SISSY JOHANSEN MD Copy to: SANTHOSH SPRAGUE MD ? Final Pathologic Diagnosis: ? Rectum, polypectomy: - Hyperplastic polyp. Document reviewed and electronically signed by: JENNYFER MCKEON [facility] Report ??Date: 07/30/2006 15:43 By the signature [...] are entirely submitted in one cassette. ??(Dr. Overton)/[facility] End of Report Specimen Performing Organization Address City/State/ZIP Code Phon e Number [facility] [address] [place] [address] SERVICES [facility] [address] [place] [address] documented in this encounter Visit Diagnoses Not on filedocumented in this encounter
--- OUTSIDE RECORDS SUMMARY | 2022-01-24 16:43 | XMS_ITS | Encounter Summary ---
:1935 Author Organization [facility] Address [address] [place] [address] Care Team Providers Name Role Phone Unknown, Provider MD Primary Care Provider Encounter Details Date Type Department Care Team Description 08/29/[address] [facility] Orlando Pena MD Encounter for other Pathology [address] general examination Laboratory Medicine [facility] [id number] [address] [facility] [phone] [place] [address] (Work) [phone] Social History Tobacco Use Types Packs/Day Years [...] 12:00 EDT) Note to Patient The following [facility] MEDICAL pathology results have CENTER been interpreted by LABORATORY your pathologist and SERVICES may be available to you before your health provider has had the opportunity to review them. Please allow time for your provider to receive these results and explore management options, if applicable. Final Diagnosis A. TONSIL, RIGHT, BIOPSIES: [facility] MEDICA L - HPV associated squamous cell carcinoma. See comment. CENTER - Lymphovascular invasion identified. LAB ORATORY SERVICES Diagnosis Comment Immunostaining for p16 (P16 ([id number], [place]) ) was performed on block (A1) and shows positive (greater than 70%) staining in the tumor cells. This staining is a surrogate for HPV testing and a positive [facility] MEDICAL result is often seen with t umors showing improved outcomes. In addition, a stain for endothelial cells was performed to further evaluate possible lymphovascular invasion. The ERG ([id number], [place]) sta CENT ER in highlights the endothelia l cells and confirms the presence of intravascular tumor. Ec Teacher slides of this case were reviewed at [...] characteristics have been de termined by [facility] and/or by the referring laboratory. The positive [...] laboratory testing.? Attestation By the signature below, [facility] tronically the attending physician CENTER sign ed by Jacky, certifies that they LABORATORY Corrine gutierrez MD on have 1) personally SERVICES 09/04/2021 at 1215 conducted a gross and/or microscopic examination of the described specimen(s), and/or personally interpreted the results of laboratory testing of the described specimen(s), and 2) personally rendered or confirmed the above diagnosis. Clinical History Nonsmoker, symptoms [facility] MEDICAL present 3 - 4 months, CENTER possible extension to LABORATORY tongue base; clinical SERVICES diagnosis code: J35.8 Gross Description A. [facility] MEDICAL Received in formalin scooter d with proper patient identification (initials L, C) and R tonsil are mcneal-carroll tissue fragments aggregating 0.8 x 0.7 x 0.3 cm. Entirely submitted in A1. [facility] NOEMI MISTRY(ASCP) 08/29/2021 10:17 SER VICES Performing Lab [facility] SERVICES Scanned Images [facility] SERVICES Specimen Tissue - Specimen from tonsil (specimen) Performing Organization Address City/State/ZIP Code Phon e Number [facility] [address] [place] [address] SERVICES documented in this encounter Visit Diagnoses Diagnosis Encounter for other general examination documented in this encounter Care Teams Loom Doffer Relationship Specialty Start Date End Date Unknown, Provider, PCP - General 02/01/15 documented as of this encounter
--- OUTSIDE RECORDS SUMMARY | 2022-01-24 16:43 | XMS_ITS | Encounter Summary ---
:1935 Author Organization [facility] Address [address] [place] [address] Care Team Providers Name Role Phone Unknown, Provider Primary Care Provider Encounter Details Date Type Department Care Team Description 10/18/2020 Lab Requisition [facility] Outr Resulting Lab, Pathology & Laboratory Provider [facility] [address] [place], [place] [id number] Social History Tobacco Use Types Packs/Day Years Used Date Never Assessed Sex Assigned at Date Recorded Not on file documented as of this encounter Plan of Treatment Not on filedocumented as of this encounter Procedures Procedure Name Priority Date/Time Associated Comments Diagnosis PSA TOTAL, Routine 10/18/2020 7:44 EDT Results for this DIAGNOSTIC procedure are i n the results section. documented in this encounter Results PSA TOTAL, DIAGNOSTIC (10/18/2020 7:44 EDT) Pathologist Sig nature PSA 0.8 0.0 - 6.5 ng/mL [facility] Specimen Blood - Venous blood (substance) Narrative [facility] - 10/21/2020 9:17 EDT NOTE: Serum PSA concentration should not be in terpreted as absolute evidence for the presence or absence of malignant disease. Assayed on Siemens ADVIA Centaur XPT usi ng chemiluminescent technology.??Values obtained by using different assay methods cannot be used interchangeably. Performing Organization Address City/State/ZIP Code Phon e Number [facility] [address] [place] [address] SERVICES documented in this encounter Visit Diagnoses Not on filedocumented in this encounter Care Teams Camp Director Relationship Specialty Start Date End Date Unknown, Provider, PCP - General 02/01/15 documented as of this encounter
--- OUTSIDE RECORDS SUMMARY | 2022-01-24 16:43 | XMS_ITS | Clinical Summary ---
:1935 Author Organization [facility] Address [address] [place] [address] Care Team Providers Name Role Phone Unknown, [...] e / Group Dates MEDICARE MEDICARE A/B [id number] 2002-Pres [address] edicare ent [phone] [place] [address] [facility] [id number] 2021-Pres [phone] [address] ercial [facility] ent [phone] [place] [address] Pino Wong Personal/Family Self [address] (Home) [place] [address] JudithPino Personal/Family Self [address] (Home) [place] [address] Care Teams [employer] Dining Car Steward/Stewardess Relationship Specialty Start Date End Date Unknown, Provider, PCP - General 02/01/15
--- OUTSIDE RECORDS SUMMARY | 2022-01-24 16:44 | XMS_ITS | Encounter Summary ---
:1935 Author Organization [facility] [place] [address] Care Team Providers Name Role Phone Amelia Gomes APRN Primary Care Provider [phone] Encounter Details Date Type Department Care Team Description 01/05/2022 [facility] Tonsil cancer [address] HEMATOLOGY AND [address] ONCOLOGY [phone] [place], [place] [address] (Wo rk) Social History Tobacco [...] was placed on 11/13 by IR at [facility]. He is currently taking 3 [...] protein needs. Estimated needs based on 84.6 [id number] kcals (25-30 kcal/kg) 85-128 g protein (1-1.5 [...] and Oncology Mirta Sy MD [facility] DR ONCOLOGY DEPT. [place], [place] [address] (Wo rk) 01/28/2022 Office Visit Radiation Oncology Chilango Michel MD [facility] RADIATION ONCOLO GY [place], [place] [address] (Wo rk) 01/29/2022 Infusion Hematology and Oncology 02/05/2022 Infusion Hematology and Oncology documented as of this encounter Visit Diagnoses Diagnosis Tonsil cancer Malignant neoplasm of tonsil documented in this encounter Care Teams Investigator Vice Relationship Specialty Start Date End Date Amelia Gomes APRN PCP - General Family Medicine 10/17/[address] [place] [address] documented as of this encounter
--- OUTSIDE RECORDS SUMMARY | 2022-01-24 16:44 | XMS_ITS | Encounter Summary ---
:1935 Author Organization [facility] [place] [address] Care Team Providers Name Role Phone Amelia Gomes APRN Primary Care Provider [phone] Encounter Details Date Type Department Care Team Description 01/12/2022 Unscheduled Encounter Hematology/Oncology Gris Dawn, RAYSA Tonsil cancer at [address] HEMATOLOGY AND [address] ONCOLOGY [phone] [place], [place] [address] Social History Tobacco Use Types Packs/Day Years [...] 01/12/22: 83.5 kg (184 lb). Estimated Kcal: 5703-5959 kcal (25-30 kcal/kg) Estimated Protein needs: 84-126 gm/day (1-1.5 g/kg) Estimated Fluid needs: 2.1-2.5 L/day (1 ml/kcal) Goal : 6 cans/day Method of Feeding: [place] (CPT B4036) G-tube connection: Enfit Patient unable to meet estimated nutritional needs with PO. PO is for pleasure and to maintain swallow function at this time. Initiating enteral nutrition. Recommend 6 cans of Nutren 1.5 (or equivalent) via G-tube/day to provide 2250 kcal, 102 gm of protein and 1146 mLs of free water. Additional protein needs: n/a [place] feeding method at 1 cans per feeding [...] at this time. Medical [employer] : [employer] Toll Free: Home Care Co.: [employer] Toll Free: Doctor/THERAPEUTIC PROGRAM WORKER: (printed name) Signature: Dietitian: Gris Dawn MS, RD, LD documented in this encounter Plan of Treatment Upcoming Encounters Date Type Specialty Care Team Description 01/26/2022 Infusion Hematology and Oncology 01/26/2022 Office Visit Hematology and Oncology Mirta Sy MD [facility] ONCOLOGY DEPT. [place], [place] [address] (Wo alondra) 01/28/2022 Office Visit Radiation Oncology Chilango Michel MD [facility] RADIATION ONCOLO [place], [place] [address] (Wo alondra) 01/29/2022 Infusion Hematology and Oncology 02/05/2022 Infusion Hematology and Oncology documented as of this encounter Visit Diagnoses Diagnosis Tonsil cancer Malignant neoplasm of tonsil documented in this encounter Care Teams Validation Software Facilitator Relationship Specialty Start Date End Date Amelia Gomes APRN PCP - General Family Medicine 10/17/[address] [place] [address] documented as of this encounter
--- OUTSIDE RECORDS SUMMARY | 2022-01-24 16:44 | XMS_ITS | Encounter Summary ---
:1935 Author Organization [facility] [place] [address] Care Team Providers Name Role Phone MateoZaid simpsonAmeliamat Branch APRN Primary Care Provider [phone] Encounter Details Date Type Department Care Team Description 01/02/2022 Notes Only [facility] [address] [phone] Social History Tobacco Use [...] closed, the patient was instructed to call [facility] at [phone] and ask for the water quality control engineer radiation oncologist if he has any concerning [...] MD [facility] DR ONCOLOGY DEPT. [place], [place] [address] (Wo rk) 01/28/2022 Office Visit Radiation Oncology Chilango Michel MD [facility] RADIATION ONCOLO GY [place], [place] [address] (Wo rk) 01/29/2022 Infusion Hematology and Oncology 02/05/2022 Infusion Hematology and Oncology documented as of this encounter Visit Diagnoses Not on filedocumented in this encounter Care Teams Plant Specialist Relationship Specialty Start Date End Date Amelia Gomes APRN PCP - General Family Medicine 10/17/[address] [place] [address] [address] [place] [address] documented as of this encounter
--- OUTSIDE RECORDS SUMMARY | 2022-01-24 16:44 | XMS_ITS | Encounter Summary ---
:1935 Author Organization [facility] [address] Care Team Providers Name Role Phone MateoHayde simpsonleonarda Branch APRN Primary Care Provider [phone] Reason for Visit Reason Comments Chemotherapy [id number] Encounter Details Date Type Department Care Team Description 01/13/2022 Infusion Hematology Oncology at [facility] Tonsil cancer [address] [place] [phone] Social History Tobacco Use Types [...] IV ACCESS: Port accessed without difficulty at [facility]. Flushes readily with brisk blood return. Pre [...] [facility] DR ONCOLOGY DEPT. [place], [place] [address] (Wo rk) 01/28/2022 Office Visit Radiation Oncology Chilango Michel MD [facility] RADIATION ONCOLO GY [place], [place] [address] (Wo rk) 01/29/2022 Infusion Hematology [...] 2 minutes is a recommendation from the general office assistant., Routine CISplatin (Platinol) 61 mg in sodium [...] post-CISplatin documented in this encounter Care Teams Bed Machine Operator Relationship Specialty Start Date End Date Amelia Gomes APRN PCP - General Family Medicine 10/17/[address] [place] [address] documented as of this encounter
--- OUTSIDE RECORDS SUMMARY | 2022-01-24 16:44 | XMS_ITS | Encounter Summary ---
:1935 Author Organization [facility] [place] [address] Care Team Providers Name Role Phone Amelia Gomes APRN Primary Care Provider [phone] Encounter Details Date Type Department Care Team Description 01/15/2022 Notes Only [facility] OFFICE OF CARE [address] [place] [address] MANAGEMENT [place], [place] [phone] Social History Tobacco Use Types Packs/Day Years [...] up okay. They would have been in [place] by now as they have wintered there the last 10 years. Friends from their park call regularly and check in. He hopes to get down to [place] at some point this winter. Offered support. Pino did not identify any new needs today. Reminded him of [employer] availability. Will continue to follow as indicated. Brief assessment Supportive Counseling documented in this encounter Plan of Treatment Upcoming Encounters Date Type Specialty Care Team Description 01/26/2022 Infusion Hematology and Oncology 01/26/2022 Office Visit Hematology and Oncology Mirta Sy MD [facility] ONCOLOGY DEPT. [place], [place] [address] (Wo rk) 01/28/2022 Office Visit Radiation Oncology Chilango Michel MD [facility] RADIATION ONCOLO [place], [place] [address] (Wo rk) 01/29/2022 Infusion Hematology and Oncology 02/05/2022 Infusion Hematology and Oncology documented as of this encounter Visit Diagnoses Not on filedocumented in this encounter Care Teams Office Workforce Planner Relationship Specialty Start Date End Date Amelia Gomes APRN PCP - General Family Medicine 10/17/20 [address] [facility] [place] [address] documented as of this encounter
--- OUTSIDE RECORDS SUMMARY | 2022-01-24 16:44 | XMS_ITS | Encounter Summary ---
:1935 Author Organization [facility] [place] [address] Care Team Providers Name Role Phone Amelia Gomes APRN Primary Care Provider [phone] Encounter Details Date Type Department Care Team Description 01/07/2022 Office Visit Radiation Oncology at [facility] Marito MD Tonsil cancer [address] RADIATION ONCOLOGY [place], [place] [phone] Social History Tobacco Use Types Packs/Day Years [...] from the original note were not included. [facility] Medicine Radiation Oncology Radiation Oncology [...] at least 8 times daily ?? 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 Weight decreased, primarily G tube [...] predominantly whispered speech NA ??? National Cancer [place] (NCI) Comprehensive Cancer Center ??? [place] [employer] Commission on Cancer (ACS López) Accredited Cancer Program ??? [place] [employer] (ACR) Accredited Radiation Oncology Program documented in this encounter Plan of Treatment Upcoming Encounters Date Type Specialty Care Team Description 01/26/2022 Infusion Hematology and Oncology 01/26/2022 Office Visit Hematology and Oncology Mirta Sy MD [facility] ONCOLOGY DEPT. 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
--- OUTSIDE RECORDS SUMMARY | 2022-01-24 16:44 | XMS_ITS | Encounter Summary ---
:1935 Author Organization [place] [address] Care Team Providers Name Role Phone Zaid Gomesmat Branch APRN Primary Care Provider [phone] Reason for Visit Reason Comments IV Medication Hydration + anti-emetics Treatment/Therapy Plan Authorization (Routine) - Authorized Specialty Diagnoses / Procedures Referred By Contact Refer red To Contact Hematology and Oncology Diagnoses Tonsil cancer History of kidney stones Gilbert's syndrome Kale Sy MD [facility] Hem Onc Infusion Procedures , [facility] [address] [facility] [place], [place] ONCOLOGY DEPT. [address] [place] [address] Referral ID Status Reason Start Date Expiration Date Visits V isits Requested Authorized [id number] Authorized 12/08/2021 02/25/2022 99 99 Encounter Details Date Type Department Care Team Description 01/21/2022 Infusion Hematology Oncology at [facility] lbert's syndrome; [facility] Tonsil cancer; [address] [place] [address] History of kidney stones [place], [place] [phone] Social History Tobacco Use [...] Oncology 01/26/2022 Office Visit Hematology and Oncology Mrita Sy MD [facility] DR ONCOLOGY DEPT. [place], [place] [address] (Wo rk) 01/28/2022 Office Visit Radiation Oncology Chilango Michel MD [facility] RADIATION ONCOLO [place], [place] [address] (Wo rk) 01/29/2022 Infusion Hematology [...] hours documented in this encounter Care Teams Plastic Maker Relationship Specialty Start Date End Date Amelia Gomes APRN PCP - General Family Medicine 10/17/[address] [place] [address] documented as of this encounter
--- OUTSIDE RECORDS SUMMARY | 2022-01-24 16:44 | XMS_ITS | Encounter Summary ---
:1935 Author Organization [facility] [place] [address] Care Team Providers Name Role Phone Mireya Ameliamat Branch APRN Primary Care Provider [phone] Encounter Details Date Type Department Care Team Description 01/12/2022 Office Visit Hematology/Oncology at [facility] avi Jack MD Tonsil cancer; [facility] Oral candidiasis [address] [place], [place] ONCOLOGY DEPT. [address] [place] [address] [phone] (Wo rk) Social History Tobacco Use Types [...] original note were not included. Hematology/Oncology Clinic [facility] Patient Active Problem List Diagnosis ??? [...] History of nonmelanoma skin cancer BCC- left [facility] Onc checkup. Due for cisplatin dose #6 [...] visit on . Kale Sy MD, FACP manager acquisition Hematology/Oncology Section [facility]/[address] [address] Voice recognition software used for this note; please excuse oxygraph operator errors. I personally reviewed past medical, surgical, [...] PRN ??? fluticasone propionate (FLONASE) 50 mcg/actuation [place], Suspension by Each Nare route daily. 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 Vitals Flowsheet Row Office Visit from 01/12/2022 in Hematology/Oncology at [facility] Weight 83.5 kg (184 lb) Height [...] he is in good health. 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 Patient verbalized understanding. Surveys: None today . PLAN 1. Subject agrees to continue on study HN009 per protocol. Daily XRT 2. Chemo tomorrow; week 2 . 3. Ordered speech therpapy referral today. 4. Waiting for audiogram appointment. Order Analyst is checking to see if it can be done locally in [facility]. Patient verbalizes understanding of, and agreement with, plan. Advised to contact this office for any questions/concerns, as well as for any new or worsening symptoms. documented in this encounter Plan of Treatment Upcoming Encounters Date Type Specialty Care Team Description 01/26/2022 Infusion Hematology and Oncology 01/26/2022 Office Visit Hematology and Oncology Mirta Sy MD [facility] DR ONCOLOGY DEPT. 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
--- OUTSIDE RECORDS SUMMARY | 2022-01-24 16:44 | XMS_ITS | Encounter Summary ---
:1935 Author Organization [facility] [address] Care Team Providers Name Role Phone Amelia Gomes Sarina CARLOS Primary Care Provider [phone] Encounter Details Date Type Department Care Team Description 01/16/2022 Orders Only Radiation Oncology a t [facility] Marito Michel MD Tonsil cancer [facility] D [facility][note 2] [place] [address] RADIATION ONCOLOGY [phone] [place], [place] [address] (Wo rk) Social History Tobacco [...] MD [facility] ONCOLOGY DEPT. 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
--- OUTSIDE RECORDS SUMMARY | 2022-01-24 16:44 | XMS_ITS | Clinical Summary ---
:1935 Author Organization [facility] [place] [address] Care Team Providers Name Role Phone Mateocalvin Amelia Branch APRN Primary Care Provider [phone] Allergies Active Allergy Reactions Severity Noted [...] 07/03/2019 Active (FLONASE) 50 route daily. mcg/actuation [place], Suspension SAW PALMETTO ORAL Take by mouth. [...] Notes Only Hematology and Lizette Benson, Oncology LATIN DANCER 01/14/2022 Office Visit Radiation Oncology Marito Michel [...] Downs, Bonnie Ton lauren cancer; Oncology C, SOD CUTTER Dysphagia, unsp ecified type 01/06/2022 Infusion Hematology and Tonsil cancer Oncology 01/06/2022 Notes Only Hematology and Lizette Benson, Oncology LATIN DANCER 01/06/2022 External Results Pharmacy Kale Sy MD [...] ey stones 01/02/2022 Notes Only Hematology and Kalye Lee, RN 12/31/2021 Office Visit Radiation Oncology Marito Michel cancer MD Sylvia 12/30/2021 Infusion Hematology and Tonsil cancer Oncology 12/30/2021 Notes Only Hematology and Lizette Benson, Oncology LATIN DANCER 12/29/2021 Office Visit Hematology and Gris Dawn, [...] Notes Only Hematology and Lizette Benson, Oncology LATIN DANCER 12/15/2021 Office Visit Hematology and Kale yS cance r Oncology MD Marcie 12/15/2021 Orders [...] Due Influenza Vaccine, Whole 02/26/2006 Moderna Covid-19 ([employer] 100mcg) Vaccine 05/22/2020, 2020 Td, adult 07/04/2003 [...] MD [facility] ONCOLOGY DEPT. [place], [place] [address] (Wo rk) 01/28/2022 Office Visit Radiation Oncology Chilango Michel MD [facility] RADIATION ONCOLO [place], [place] [address] (Wo rk) 01/29/2022 Infusion [...] standard series) Medical Devices Implanted Type Area Garment Sewer Hand Device Shelf Model / Identifier Expiration Serial / Date Lot Mediport-11/13/2021 Mediport Right: [employer] - [id number] / Implanted: Qty: 1 on 11/13/2021 by Dejan Sprague MD Chest [employer] IN [id number] / Wall [id number] Procedures Procedure Name Priority Date/Time Associated Comments [...] Routine 11/11/2021 12:31 Tonsil cancer PM EDT NON-PRORATE CLERK FINAL REPORT Routine 11/11/2021 12:22 Res ults [...] procedure are i n the results section. NON-PRORATE CLERK FINAL REPORT Routine 11/05/2021 10:50 Res ults [...] have questions please contact the health healthcare consultant that requested your imaging first. ? Electronically signed by: Kevin Quintanilla [facility] ([phone]), at 12/17/2021 10:42 AM Narrative 12/17/2021 10:42 [...] have questions please contact the health healthcare consultant that requested your imaging first. Electronically signed by: Kevin Quintanilla [facility] ([phone]), at 12/17/2021 10:42 AM Janice Barth APRN [facility] [place] [place]EARCH ORDERABLES SCAN DOC: IMPLANTABLE DEVICES (11/26/2021 [...] have questions please contact the health healthcare consultant that requested your imaging first. ? Narrative 11/21/2021 8:38 AM EDT EXAMINATION: CT [...] have questions please contact the health healthcare consultant that requested your imaging first. Electronically signed by: Kevin Quintanilla [facility] ([phone]), at 11/21/2021 8:38 AM Marito Michel MD IMG OUTSIDE INTERPRETATION O [...] have questions please contact the health healthcare consultant that requested your imaging first. ? Electronically signed by: Ricardo claros MD, [facility] ([phone]), at 11/18/2021 11:57 AM Narrative 11/18/2021 11:57 [...] have questions please contact the health healthcare consultant that requested your imaging first. Electronically signed by: Ricardo claros MD, [facility] ([phone]), at 11/18/2021 11:57 AM Marito Michel MD IMG MRI ORDERABLES IR [...] to procedure. Impression: 1) Implantation of power-injectable, ProPerforma 8 Fr Dignity Mini Profile single-lumen port [...] 7-10 days, order place d and IR remedial masseur notified. - Mediport ready for immediate use. - To angio recovery, may discharge home when criteria met. Resident/Fellow: Carlos Lezama MD Attending: Dr. Sprgaue I, Dr. Sprague, was present throughout e [...] 7-10 days, order place d and IR remedial masseur notified. - Mediport ready for immediate use. [...] Signature WBC 6.5 4.0 - 9.5 [facility] x10(3)/[facility] LABORATORY RBC 4.84 4.58 - [facility] 5.54 [facility] x10(6)/[facility] LABORATORY Hemoglobin 15.1 13.7 - FAN KENN 16.5 g/dL [facility] LABORATORY Hematocrit 45.7 40.5 - [facility] [place] 48.5 % [facility] LABORATORY MCV 94.4 (H) 82.9 - [facility]ENN 93.1 [facility] LABORATORY MCH 31.2 27.5 - [place] [place] 32.[address] [facility] LABORATORY MCHC 33.0 32.0 - [facility] [place] 35.7 g/dL [facility] LABORATORY Platelets 236 145 - 357 [facility] x10(3)/[facility] LABORATORY RDWSD 47.2 (H) 36.[address] - [facility] 45.0 [facility] RDWCV 13.5 11.4 [facility] LABORATORY MPV 8.8 7.6 - 12.9 [facility] LABORATORY nRBC % Auto 0.0 % [facility] LABORATORY nRBC Abs Auto 0.000 0.000 - [place] 0.000 [facility] x10(3)/[facility] LABORATORY Specimen Anatomical Collection Method Collection Time Receive d Time (Source) Location / / Volume Laterality Blood 11/13/2021 7:59 AM 8:07 EDT AM EDT Resulting Agency Comment Spec In Lab Kale Sy MD HEMATOLOGY ORDERABLES Performing Organization Address City/State/[place] [address] Prothrombin Time (11/13/2021 7:59 AM EDT) P athologist Signature PT 11.7 9.4 - 12.5 [facility] LABORATORY INR 1.0 [facility] LABORATORY Comment: An INR <2.0 indicates [...] Address City/State/ZIP [place] [address] [facility] [address]ORY [address] Non-Loan Auditor Final Report (11/11/2021 12:22 PM EDT)Only the most recent of2 results within the time period is included. Component Value Ref Test Analysis Performed At [facility] gist Range Method Time Signature Non-Loan Auditor [id number] ? Location: [facility]; [facility]; A FAN Final Report KENN The signing pathologist has (i) examined the relevant preparation(s) for the MEMORIAL specimen(s) and (ii) rendered or confirmed the diagnosis(es) . HOSPITAL LABORATORY . ? No n-Loan Auditor Final DIAGNOSIS Suspicious for Malignancy Electronically signed by: ?Jocelyn MUNOZ, Gal Ac Verified: ??11/14/2021 14:26 ??Pathologist Performed at: ??-[facility] Dept. of [place]ology, [facility], [place], [place] DISCUSSION Lymph node, left neck level [...] MD PATHOLOGY/CYTOLOGY ORDERABLE S Performing Organization Address City/[facility]/[place] [address] Cytopathology Non-Gynecological (11/11/2021 12:22 PM EDT)Only the most recent of 2 resultswithin the time period is included. Specimen Anatomical Collection Method Collection Time Receive d Time (Source) Location / / Volume Laterality AP Specimen 11/11/2021 12:22 11/11/2021 PM EDT 12:22 PM EDT [facility]ative [facility] - 11/11/[facility]21 12:22 PM EDT Specimen requisition ordered. ??Separate Pathology report to follow Jarett Cedillo MD PATHOLOGY/CYTOLOGY ORDERABLE S Performing Organization Address City/[facility]/ZIP Code Phon e Number [address] Specimen to Pathology (11/11/2021 12:10 PM EDT)Only the most recent of3 results within the time period is included. Specimen Anatomical Collection Method Collection Time Receive d Time (Source) Location / / Volume Laterality AP Specimen 11/11/2021 12:10 11/11/2021 PM EDT 12:10 PM EDT Narrative [facility] LABORAT ORY - 11/11/2021 12:10 PM EDT Specimen requisition ordered. ??Separate Pathology report to follow Jarett Cedillo MD PATHOLOGY/CYTOLOGY ORDERABLE S Performing Organization Address City/[facility]/[place] [address] Surgical Pathology Report (11/11/2021 11:49 AM EDT) Component Value Ref Test Analysis Performed At Patholo gist Range Method Time Signature Surgical [id number] ? Location: [facility]; [facility]; A [facility] Pathology KENN Report The signing pathologist has [...] Kamara Verified: ??11/19/2021 11:01 ??Pathologist Performed at: ??-[facility] Dept. of Pathology, [place], [place] DISCUSSION Step levels were examined. SPECIMEN(S) [...] Organization Address City/State/[place] [address] DH OR Endoscopy (11/11/2021) [...] have questions please contact the health healthcare consultant that requested your imaging first. ? Narrative [...] have questions please contact the health healthcare consultant that requested your imaging first. Kale Sy MD IMG IR ORDERABLES from Last 3 Months Insurance Payer Benefit Plan / Subscriber ID Effective Phone Address [facility] Group Dates MEDICARE MEDICARE PART A [id number] 2002-Prese [phone] [place] [phone] AAR SUPPLEMENT AAR SUPPLEMENT [id number] 2015-[place] nt [id number] [place] [address] Advance Directives Latest Code Status on File Code Status Date Activated Date Inactivated Comments Attempt Cardiopulmonary Resuscitation - 11/13/2021 8:46 AM 022 4:33 AM Inpatient Code Status decision made by: Patient Care Teams Gravity Flow Irrigator Relationship Specialty Start Date End Date Amelia Gomes APRN PCP - General Family Medicine 10/17/[address] [place] [address]
--- OUTSIDE RECORDS SUMMARY | 2022-01-24 16:44 | XMS_ITS | Encounter Summary ---
:1935 Author Organization [facility] [place] [address] Care Team Providers Name Role Phone Zaid Gomesmat Branch APRN Primary Care Provider [phone] Reason for Visit Reason Comments IV Medication IV hydration and anti-emetic s Treatment/Therapy Plan Authorization (Routine) - Authorized Specialty Diagnoses / Procedures Referred By Contact Refer red To Contact Hematology and Oncology Diagnoses Tonsil cancer History of kidney stones Gilbert's syndrome Kale Sy MD [facility] Hem Onc Infusion Procedures , [address] [place], [place] ONCOLOGY DEPT. [address] [place] [address] Referral ID Status Reason Start Date Expiration Date Visits V isits Requested Authorized [id number] Authorized 12/08/2021 02/25/2022 99 99 Encounter Details Date Type Department Care Team Description 01/19/2022 Infusion Hematology Oncology at [facility] lbert's syndrome; [facility] Tonsil cancer; [address] [place] [address] History of kidney stones [place], [place] [phone] Social History Tobacco Use [...] Hematology and Oncology Mirta Sy MD [facility] DR ONCOLOGY DEPT. [place], [place] [address] (Wo rk) 01/28/2022 Office Visit Radiation Oncology Chilango Michel MD [facility] RADIATION ONCOLO [place], [place] [address] (Wo rk) 01/29/2022 Infusion Hematology [...] hours documented in this encounter Care Teams Freight Elevator Operator Relationship Specialty Start Date End Date Amelia Gomes APRN PCP - General Family Medicine 10/17/[address] [place] [address] documented as of this encounter
--- OUTSIDE RECORDS SUMMARY | 2022-01-24 16:44 | XMS_ITS | Encounter Summary ---
:1935 Author Organization [facility] [place] [address] Care Team Providers Name Role Phone Amelia Gomes APRN Primary Care Provider [phone] Encounter Details Date Type Department Care Team Description 01/21/2022 [facility] Tonsil cancer [address] [facility] RADIATION ONCOLOGY [facility] [phone] Social History Tobacco Use Types Packs/Day Years [...] from the original note were not included. [facility] Medicine Radiation Oncology Radiation Oncology On-treatment Visit Patient Identity: Patient name: Pnio Wong Date of : 1935 Chief complaint: [...] Pulse 93 Temp 97.5 Resp 16 Height (Peruvian) 69.016 Height (Metric) 175.3 cm Weight (Peruvian) 187 lbs 13 oz Weight (Metric) 85.186 [...] at least 8 times daily ?? 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 Weight decreased, primarily G tube [...] predominantly whispered speech NA ??? National Cancer [facility] (NCI) Comprehensive Cancer Center ??? [employer] Commission on Cancer (ACS López) Accredited Cancer Program ??? [employer] (ACR) Accredited Radiation Oncology Program documented in this encounter Plan of Treatment Upcoming Encounters Date Type Specialty Care Team Description 01/26/2022 Infusion Hematology and Oncology 01/26/2022 Office Visit Hematology and Oncology Mirta Sy MD [facility] ONCOLOGY DEPT. [place], [place] [address] (Wo rk) 01/28/2022 Office Visit Radiation Oncology Chilango Michel MD [facility] RADIATION ONCOLO [place], [place] [address] (Wo alondra) 01/29/2022 Infusion Hematology and Oncology 02/05/2022 Infusion Hematology and Oncology documented as of this encounter Visit Diagnoses Diagnosis Tonsil cancer Malignant neoplasm of tonsil documented in this encounter Care Teams Surgical Elastic Knitter Hand Frame Relationship Specialty Start Date End Date Amelia Gomes APRN PCP - General Family Medicine 10/17/[address] [place] [address] documented as of this encounter
--- OUTSIDE RECORDS SUMMARY | 2022-01-24 16:44 | XMS_ITS | Encounter Summary ---
:1935 Author Organization [facility] [place] [address] Care Team Providers Name Role Phone Amelia Gomes APRN Primary Care Provider [phone] Encounter Details Date Type Department Care Team Description 01/06/2022 Notes Only [facility] OFFICE OF CARE [address] [place] [phone] Social History Tobacco Use Types Packs/Day Years [...] MD [facility] ONCOLOGY DEPT. [place], [place] [address] (Wo alondra) 01/28/2022 Office Visit Radiation Oncology Chilango Michel MD [facility] RADIATION ONCOLO [place], [place] [address] (Wo alondra) 01/29/2022 Infusion Hematology and Oncology 02/05/2022 Infusion Hematology and Oncology documented as of this encounter Visit Diagnoses Not on filedocumented in this encounter Care Teams Calendar Control Clerk Blood Bank Relationship Specialty Start Date End Date Amelia Gomes APRN PCP - General Family Medicine 10/17/20 [address] [place] [address] documented as of this encounter
--- OUTSIDE RECORDS SUMMARY | 2022-01-24 16:44 | XMS_ITS | Encounter Summary ---
:1935 Author Organization [facility] [place] [address] Care Team Providers Name Role Phone MateoHayde simpsonleonarda Branch APRN Primary Care Provider [phone] Encounter Details Date Type Department Care Team Description 01/12/2022 Notes [facility] [address] [phone] Social History Tobacco Use [...] we provided. He also saw Landry our Smokehouse Worker today. States he has numbness in right [...] 2 2 01/03/2212/172101/12/22 :Had phone appointment with THERMOSTATIC CONTROLS SUPERVISOR last week. He states was helpful 10 [...] patient and his were instructed to call [facility] [place] [phone] and ask for the electronic organ mechanic radiation or medical oncologist. They verbalized understanding. [...] Oncology Mirta Sy MD [facility] DR ONCOLOGY DEPT. [place], [place] [address] (Wo rk) 01/28/2022 Office Visit Radiation Oncology Chilango Michel MD [facility] RADIATION ONCOLO [place], [place] [address] (Wo rk) 01/29/2022 Infusion Hematology and Oncology 02/05/2022 Infusion Hematology and Oncology documented as of this encounter Visit Diagnoses Not on filedocumented in this encounter Care Teams Process Mold Technician Relationship Specialty Start Date End Date Amelia Gomes APRN PCP - General Family Medicine 10/17/[address] [place] [address] documented as of this encounter
--- OUTSIDE RECORDS SUMMARY | 2022-01-24 16:44 | XMS_ITS | Encounter Summary ---
:1935 Author Organization [facility] [place] [address] Care Team Providers Name Role Phone MateoHayde simpsonleonarda Branch APRN Primary Care Provider [phone] Encounter Details Date Type Department Care Team Description 01/05/2022 Notes [facility] [address] [phone] Social History Tobacco Use [...] with swallowing . Landry reports that our PEOPLE MANAGER plans to do a Telehealth appointment with [...] cream today.Phytoplex. He also saw Gris our Steward/Stewardess Banquet today. PREVIOUS CYCLE SUPPLIES & MEDICATION COLLECTED [...] 0 2 01/03/22 Has [facility] appointment with PEOPLE MANAGER today( 01/05/22) 10 Mucositis oral 1 2 [...] closed, the patient was instructed to call [facility] at [phone] and ask for the completion manager radiation or medical oncologist. Patient verbalized understanding. [...] [facility] ONCOLOGY DEPT. [place], [place] [address] (Wo rk) 01/28/2022 Office Visit Radiation Oncology Chilango Michel MD [facility] RADIATION ONCOLO [place], [place] [address] (Wo rk) 01/29/2022 Infusion Hematology and Oncology 02/05/2022 Infusion Hematology and Oncology documented as of this encounter Visit Diagnoses Not on filedocumented in this encounter Care Teams Toll Gate Keeper Relationship Specialty Start Date End Date Amelia Gomes APRN PCP - General Family Medicine 10/17/[address] [place] [address] documented as of this encounter
--- OUTSIDE RECORDS SUMMARY | 2022-01-24 16:44 | XMS_ITS | Encounter Summary ---
:1935 Author Organization [facility] [place] [address] Care Team Providers Name Role Phone Hayde Gomesleonarda Branch APRN Primary Care Provider [phone] Reason for Visit Reason Comments Chemotherapy [id number] Arm 4 Cisplatin Encounter Details Date Type Department Care Team Description 01/06/2022 Infusion Hematology Oncology at [facility] Tonsil cancer [address] [place] [phone] Social History Tobacco Use Types [...] receive planned therapy. SUBJECTIVE: Pino is reporting nausea this morning which he took home medications for. He has not eaten anything or taken in tube feeds yet today. Offered tube feed while in clinic but pt refused. Heis having a hard time with swallowing. He is going to package pick up liquid oxycodone today. OBJECTIVE: VSS. Weight stable. [...] Visit Hematology and Oncology Mirta Sy MD [facility] DR ONCOLOGY DEPT. [place], [place] [address] (Wo rk) 01/28/2022 Office Visit Radiation Oncology Chilango Michel MD [facility] RADIATION ONCOLO [place], [place] [address] (Wo rk) 01/29/2022 Infusion Hematology [...] 2 minutes is a recommendation from the mounter sousaphones., Routine CISplatin (Platinol) 81 mg in [place] [...] 1159 documented in this encounter Care Teams Continuous Pickling Line Pickler Helper Relationship Specialty Start Date End Date Amelia Gomes APRN PCP - General Family Medicine 10/17/[address] [place] [address] [address] [place] [address] documented as of this encounter
--- OUTSIDE RECORDS SUMMARY | 2022-01-24 16:44 | XMS_ITS | Encounter Summary ---
:1935 Author Organization [place] [address] Care Team Providers Name Role Phone Amelia Gomes APRN Primary Care Provider [phone] Encounter Details Date Type Department Care Team Description 01/12/2022 [facility] Tonsil cancer [address] HEMATOLOGY AND [address] ONCOLOGY [phone] [place], [place] [address] (Wo rk) Social History Tobacco Use Types [...] was placed on 11/13 by IR at [facility]. He is currently taking 5 cartons Nutren [...] Ongoing/unresolved ?? Estimated needs based on 83.5 [id number] kcals (25-30 kcal/kg) 84-126 g protein (1-1.5 [...] Mirta Sy MD [facility] DR ONCOLOGY DEPT. 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
--- OUTSIDE RECORDS SUMMARY | 2022-01-24 16:44 | XMS_ITS | Encounter Summary ---
:1935 Author Organization [facility] [place] [address] Care Team Providers Name Role Phone Amelia Gomes APRN Primary Care Provider [phone] Encounter Details Date Type Department Care Team Description 01/19/2022 [facility] Tonsil cancer [address] HEMATOLOGY AND [address] ONCOLOGY [phone] [place], [place] [address] (Wo rk) Social History Tobacco [...] Ongoing/unresolved ?? Estimated needs based on 83.5 [id number] kcals (25-30 kcal/kg) 84-126 g protein (1-1.5 [...] Sy MD [facility] DR ONCOLOGY DEPT. 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
--- OUTSIDE RECORDS SUMMARY | 2022-01-24 16:44 | XMS_ITS | Encounter Summary ---
:1935 Author Organization [facility] [place] [address] Care Team Providers Name Role Phone MateoZaid simpsonAmeliamat Branch APRN Primary Care Provider [phone] Encounter Details Date Type Department Care [...] [facility] DR ONCOLOGY DEPT. [place], [place] [address] (Wo rk) 01/28/2022 Office Visit Radiation Oncology Chilango Michel MD [facility] RADIATION ONCOLO [place], [place] [address] (Wo rk) 01/29/2022 Infusion Hematology and Oncology 02/05/2022 Infusion Hematology and Oncology documented as of this encounter Visit Diagnoses Not on filedocumented in this encounter Care Teams Blueprint Developer Relationship Specialty Start Date End Date Amelia Gomes APRN PCP - General Family Medicine 10/17/[address] [place] [address] documented as of this encounter
--- OUTSIDE RECORDS SUMMARY | 2022-01-24 16:44 | XMS_ITS | Encounter Summary ---
:1935 Author Organization [place] [address] Care Team Providers Name Role Phone Amelia Gomes APRN Primary Care Provider [phone] Encounter Details Date Type Department Care Team Description 01/14/2022 [facility] Tonsil cancer [address] ONCOLOGY DEPT. [place], [place] [phone] Social History Tobacco Use Types Packs/Day Years [...] place to sleep or slept in a jail (including now)? Sex Assigned at Date Recorded Not on file documented as of this encounter Plan of Treatment Upcoming Encounters Date Type Specialty Care Team Description 01/26/2022 Infusion Hematology and Oncology 01/26/2022 Office Visit Hematology and Oncology Mirta Sy MD [facility] ONCOLOGY DEPT. 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
--- OUTSIDE RECORDS SUMMARY | 2022-01-24 16:44 | XMS_ITS | Encounter Summary ---
:1935 Author Organization [facility] [place] [address] Care Team Providers Name Role Phone MateoZaid simpsonAmeliamat Branch APRN Primary Care Provider [phone] Encounter Details Date Type Department Care Team Description 01/16/2022 Notes Only [facility] [address] [phone] Social History Tobacco Use [...] we provided. He also saw Landry our Concert Promoter today. reported to Landry some confusion, mostly [...] patient and his were instructed to [place] [facility] at [phone] and ask for the institution director radiation or medical oncologist. They verbalized understanding. [...] MD [facility] DR ONCOLOGY DEPT. [place], [place] [address] (Wo rk) 01/28/2022 Office Visit Radiation Oncology Chilango Michel MD [facility] RADIATION ONCOLO [place], [place] [address] (Wo rk) 01/29/2022 Infusion Hematology and Oncology 02/05/2022 Infusion Hematology and Oncology documented as of this encounter Visit Diagnoses Not on filedocumented in this encounter Care Teams Gis Specialist Relationship Specialty Start Date End Date Amelia Gomes, TERRANCE PCP - General Family Medicine 10/17/[address] [place] [address] documented as of this encounter
--- OUTSIDE RECORDS SUMMARY | 2022-01-24 16:44 | XMS_ITS | Encounter Summary ---
:1935 Author Organization [facility] [place] [address] Care Team Providers Name Role Phone Amelia Gomes Sarina CARLOS Primary Care Provider [phone] Reason for Visit Reason Comments Dehydration Treatment/Therapy Plan Authorization (Routine) - Authorized Specialty Diagnoses / Procedures Referred By Contact Refer red To Contact Hematology and Oncology Diagnoses Tonsil cancer History of kidney stones Gilbert's syndrome Kale Sy MD [facility] Hem Onc Infusion Procedures , [facility] [address] [facility] [address] [place], [place] ONCOLOGY DEPT. [address] [place] [address] Referral ID Status Reason Start Date Expiration Date Visits V isits Requested Authorized [id number] Authorized 12/08/2021 02/25/2022 99 99 Encounter Details Date Type Department Care Team Description 01/09/2022 Infusion Hematology Oncology at [facility] lbert's syndrome; [facility] Tonsil cancer; [address] [place] [address] History of kidney stones [place], [place] [phone] Social History Tobacco Use [...] Visit Hematology and Oncology Mirta Sy MD [facility] DR ONCOLOGY DEPT. [place], [place] [address] (Wo rk) 01/28/2022 Office Visit Radiation Oncology Chilango Michel MD [facility] RADIATION ONCOLO [place]Y [place], [place] [address] (Wo rk) 01/29/2022 Infusion Hematology [...] hours documented in this encounter Care Teams Counter Sales Person Relationship Specialty Start Date End Date Amelia Gomes APRN PCP - General Family Medicine 10/17/[address] [place] [address] documented as of this encounter
--- OUTSIDE RECORDS SUMMARY | 2022-01-24 16:44 | XMS_ITS | Encounter Summary ---
:1935 Author Organization [facility] [place] [address] Care Team Providers Name Role Phone MateoHayde simpsonleonarda Branch APRN Primary Care Provider [phone] Encounter Details Date Type Department Care Team Description 01/21/2022 Notes Only [facility] [address] [phone] Social History Tobacco Use [...] orthostatic BPs. He also saw Gris our Senior Water/Wastewater Engineer today. PREVIOUS CYCLE SUPPLIES & MEDICATION [...] 2 2 01/03/2212/172101/12/22 :Had phone appointment with AUTOMOBILE RELOCATION ENGINEER 10 Mucositis oral 1 2 2 3 [...] patient and his were instructed [place] [facility] [place] [phone] and ask for the contract accountant radiation or medical oncologist. They verbalized understanding. [...] MD [facility] [address] ONCOLOGY DEPT. [place], [place] [address] (Wo rk) 01/28/2022 Office Visit Radiation Oncology Chilango Michel MD [facility] RADIATION ONCOLO [place], [place] [address] (Wo rk) 01/29/2022 Infusion Hematology and Oncology 02/05/2022 Infusion Hematology and Oncology documented as of this encounter Visit Diagnoses Not on filedocumented in this encounter Care Teams Scratcher Relationship Specialty Start Date End Date Amelia Gomes APRN PCP - General Family Medicine 10/17/[address] [place] [address] documented as of this encounter
--- OUTSIDE RECORDS SUMMARY | 2022-01-24 16:44 | XMS_ITS | Encounter Summary ---
:1935 Author Organization [facility] [place] [address] Care Team Providers Name Role Phone MateoZaid simpsonAmeliamat Branch APRN Primary Care Provider [phone] Reason for Visit Reason Comments IV Medication Hydration Treatment/Therapy Plan Authorization (Routine) - Authorized Specialty Diagnoses / Procedures Referred By Contact Refer red To Contact Hematology and Oncology Diagnoses Tonsil cancer History of kidney stones Gilbert's syndrome Kale Sy MD [facility] Hem Onc Infusion Procedures , [facility] [address] [facility] [place], [place] ONCOLOGY DEPT. [address] [place] [address] Referral ID Status Reason Start Date Expiration Date Visits V isits Requested Authorized [id number] Authorized 12/08/2021 02/25/2022 99 99 Encounter Details Date Type Department Care Team Description 01/16/2022 Infusion Hematology Oncology at [facility] lbert's syndrome; [facility] Tonsil cancer; [address] [place] [address] History of kidney stones [place], [place] [phone] Social History Tobacco Use [...] Visit Hematology and Oncology Mirta Sy MD [facility] DR ONCOLOGY DEPT. [place], [place] [address] (Wo rk) 01/28/2022 Office Visit Radiation Oncology Chilango Michel MD [facility] RADIATION ONCSHANTEL [place], [place] [address] (Wo rk) 01/29/2022 Infusion Hematology and [...] documented in this encounter Care Teams Car Carder Relationship Specialty Start Date End Date Amelia Gomes APRN PCP - General Family Medicine 10/17/[address] [place] [address] [address] [place] [address] documented as of this encounter
--- OUTSIDE RECORDS SUMMARY | 2022-01-24 16:44 | XMS_ITS | Encounter Summary ---
:1935 Author Organization [facility] [place] [address] Care Team Providers Name Role Phone MateoZaid simsponAmeliamat Branch APRN Primary Care Provider [phone] Encounter Details Date Type Department Care [...] Visit Hematology and Oncology Mirta Sy MD [facility] DR ONCOLOGY DEPT. [place], [place] [address] (Wo rk) 01/28/2022 Office Visit Radiation Oncology Chilango Michel MD [facility] RADIATION ONCOLO [place], [place] [address] (Wo rk) 01/29/2022 Infusion Hematology and Oncology 02/05/2022 Infusion Hematology and Oncology documented as of this encounter Visit Diagnoses Not on filedocumented in this encounter Care Teams Recovery Specialist Relationship Specialty Start Date End Date Amelia Gomes APRN PCP - General Family Medicine 10/17/[address] [place] [address] documented as of this encounter
--- OUTSIDE RECORDS SUMMARY | 2022-01-24 16:44 | XMS_ITS | Encounter Summary ---
:1935 Author Organization [facility] [place] [address] Care Team Providers Name Role Phone Amelia Gomes APRN Primary Care Provider Encounter Details Date Type Department Care Team Description 01/07/2022 TH Visit Hematology/Oncology Bonnie Arevalo C, Tons il cancer; (TeleHealth) at [facility] FIBROUS WALLBOARD INSPECTOR Dysphagia, unspecified type [address] [place] [phone] Social History Tobacco Use Types [...] Miscellaneous Notes Initial Evaluation - Bonnie Arevalo, FIBROUS WALLBOARD INSPECTOR - 01/07/2022 3:00 PM EDT Speech Language [...] RD Visit / Date: 01/05/22 Subjective: Pino Wong seen for clinical swallowing evaluation and motivational [...] for not eating. Briefly reviewed role of FIBROUS WALLBOARD INSPECTOR and prophylactic measures for patient to consider throughout and after Treatment (pharyngocise, trismus s/sx+lateral finger self- test, aspiration s/sx), including plan for FIBROUS WALLBOARD INSPECTOR follow up at end of current treatment [...] recent single dental extraction prior to current ANALYTICAL LABORATORY TECHNICIAN cycle per patient report Next Dentist Visit: [...] Involved with Potential Instrumental Assessment Options once ANALYTICAL LABORATORY TECHNICIAN has been completed and/or once patient is [...] as Outlined Referrals to Maximize Patient Outcomes: Engineer Of System Development Speech Therapy Goals: (To be met by [...] regarding Pino Wong's care. Bonnie Arevalo MA CCC-FIBROUS WALLBOARD INSPECTOR Speech-Language Pathologist documented in this encounter Plan of Treatment Upcoming Encounters Date Type Specialty Care Team Description 01/26/2022 Infusion Hematology and Oncology 01/26/2022 Office Visit Hematology and Oncology Mirta Sy MD [facility] DR ONCOLOGY DEPT. 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
--- OUTSIDE RECORDS SUMMARY | 2022-01-24 16:44 | XMS_ITS | Encounter Summary ---
:1935 Author Organization [facility] [place] [address] Care Team Providers Name Role Phone Mateocalvin Ameliamat Branch APRN Primary Care Provider [phone] Encounter Details Date Type Department Care Team Description 01/13/2022 [facility]onsil cancer [facility] Osorio [place] [address] ONCOLOGY [phone] [place], [place] [address] (Wo rk) Social History Tobacco [...] MD [facility] ONCOLOGY DEPT. 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
--- OUTSIDE RECORDS SUMMARY | 2022-01-24 16:44 | XMS_ITS | Encounter Summary ---
:1935 Author Organization [facility] [place] [address] Care Team Providers Name Role Phone MateoZaid simpsonAmeliamat Branch APRN Primary Care Provider [phone] Encounter Details Date Type Department Care Team Description 01/19/2022 Notes [facility] [address] [phone] Social History Tobacco Use [...] orthostatic BPs. He also saw Gris our Night Custodian today. PREVIOUS CYCLE SUPPLIES & MEDICATION COLLECTED [...] 2 2 01/03/2212/172101/12/22 :Had phone appointment with WATER RESOURCE MANAGER 10 Mucositis oral 1 2 2 3 [...] patient and his were instructed to call [facility] at [phone] and ask for the chimney construction supervisor radiation or medical oncologist. They verbalized understanding. [...] [facility] DR ONCOLOGY DEPT. [place], [place] [address] (Wo rk) 01/28/2022 Office Visit Radiation Oncology Chilango Michel MD [facility] RADIATION ONCOLO [place], [place] [address] (Wo rk) 01/29/2022 Infusion Hematology and Oncology 02/05/2022 Infusion Hematology and Oncology documented as of this encounter Visit Diagnoses Not on filedocumented in this encounter Care Teams Sales Professional Relationship Specialty Start Date End Date Amelia Gomes APRN PCP - General Family Medicine 10/17/[address] [place] [address] documented as of this encounter
--- OUTSIDE RECORDS SUMMARY | 2022-01-24 16:44 | XMS_ITS | Encounter Summary ---
:1935 Author Organization [facility] [address] Care Team Providers Name Role Phone MateoZaid simpsonAmeliamat Branch APRN Primary Care Provider [phone] Reason for Visit Reason Comments IV Medication Hydration Treatment/Therapy Plan Authorization (Routine) - Authorized Specialty Diagnoses / Procedures Referred By Contact Refer red To Contact Hematology and Oncology Diagnoses Tonsil cancer History of kidney stones Gilbert's syndrome Kale Sy MD [facility] Hem Onc Infusion Procedures , [facility] [address] [facility] [place], [place] ONCOLOGY DEPT. [address] [place] [address] Referral ID Status Reason Start Date Expiration Date Visits V isits Requested Authorized [id number] Authorized 12/08/2021 02/25/2022 99 99 Encounter Details Date Type Department Care Team Description 01/15/2022 Infusion Hematology Oncology at [facility] lbert's syndrome; [facility] Tonsil cancer; [address] [place] [address] History of kidney stones [place], [place] [phone] Social History Tobacco Use [...] [facility] DR ONCOLOGY DEPT. [place], [place] [address] (Wo rk) 01/28/2022 Office Visit Radiation Oncology Chilango Michel MD [facility] RADIATION ONCOLO [place]Y [place], [place] [address] (Wo rk) 01/29/2022 Infusion Hematology [...] hours documented in this encounter Care Teams Game Room Attendant Relationship Specialty Start Date End Date Amelia Gomes APRN PCP - General Family Medicine 10/17/[address] [place] [address] [address] [place] [address] documented as of this encounter
--- OUTSIDE RECORDS SUMMARY | 2022-01-24 16:44 | XMS_ITS | Encounter Summary ---
:1935 Author Organization [facility] [place] [address] Care Team Providers Name Role Phone Amelia Gomes Sarina CARLOS Primary Care Provider [phone] Encounter Details Date Type Department Care Team Description 01/13/2022 External Results Pharmacy Kale Sy MD [facility] [place] [address] ONCOLOGY DEPT. [phone] [place], [place] [address] (Wo rk) Social History Tobacco [...] MD [facility] DR ONCOLOGY DEPT. [place], [place] [address] (Wo rk) 01/28/2022 Office Visit Radiation Oncology Chilango Michel MD [facility] RADIATION ONCOLO [place], [place] [address] (Wo rk) 01/29/2022 Infusion Hematology [...] on filedocumented in this encounter Care Teams Skilled Nursing Case Manager Relationship Specialty Start Date End Date Amelia Gomes APRN PCP - General Family Medicine 10/17/[address] [place] [address] documented as of this encounter
--- OUTSIDE RECORDS SUMMARY | 2022-01-24 16:45 | XMS_ITS | Encounter Summary ---
:1935 Author Organization [facility] [place] [address] Care Team Providers Name Role Phone MateocalvinAmelia APRN Primary Care Provider [phone] Encounter Details Date Type Department Care Team Description 11/24/2021 Notes Only Hematology and Oncology at Kale Sy MD [facility] Osorio alanis [place] [address] [place] [address] [phone] (Wo rk) Social History Tobacco Use Types [...] [facility] [address] ONCOLOGY DEPT. [place], [place] [address] (Wo rk) 01/28/2022 Office Visit Radiation Oncology Chilango Michel MD [facility] RADIATION ONCOLO [place], [place] [address] (Wo rk) 01/29/2022 Infusion Hematology and Oncology 02/05/2022 Infusion Hematology and Oncology documented as of this encounter Visit Diagnoses Diagnosis Tonsil cancer Malignant neoplasm of tonsil documented in this encounter Care Teams Tractor Technician Relationship Specialty Start Date End Date Amelia Gomes APRN PCP - General Family Medicine 10/17/20 [facility] [address] [facility] 1 [place] [address] documented as of this encounter
--- OUTSIDE RECORDS SUMMARY | 2022-01-24 16:45 | XMS_ITS | Encounter Summary ---
:1935 Author Organization [facility] [place] [address] Care Team Providers Name Role Phone Amelia Gomes APRN Primary Care Provider [phone] Encounter Details Date Type Department Care Team Description 12/17/2021 Office Visit Radiation Oncology at [facility] Marito MD Tonsil cancer [address] RADIATION ONCOLOGY [place], [place] [phone] Social History Tobacco Use Types Packs/Day Years [...] from the original note were not included. [facility] Medicine Radiation Oncology Radiation Oncology On-treatment Visit [...] at least 8 times daily ?? Alimentation: farm loan representative following ?? Weight stable, all by mouth [...] predominantly whispered speech NA ??? National Cancer [place] (NCI) Comprehensive Cancer Center ??? [place] [employer] Commission on Cancer (ACS López) Accredited Cancer Program ??? [place] [employer] (ACR) Accredited Radiation Oncology Program documented in this encounter Plan of Treatment Upcoming Encounters Date Type Specialty Care Team Description 01/26/2022 Infusion Hematology and Oncology 01/26/2022 Office Visit Hematology and Oncology Mirta Sy MD [facility] ONCOLOGY DEPT. 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
--- OUTSIDE RECORDS SUMMARY | 2022-01-24 16:45 | XMS_ITS | Encounter Summary ---
:1935 Author Organization [facility] [place] [address] Care Team Providers Name Role Phone MateoHayde simpsonleonarda Branch APRN Primary Care Provider [phone] Encounter Details Date Type Department Care Team Description 12/22/2021 Notes [facility] [address] [phone] Social History Tobacco Use [...] he is in good health. 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 Patient verbalized understanding. Surveys: [...] [facility] DR ONCOLOGY DEPT. [place], [place] [address] (Wo alondra) 01/28/2022 Office Visit Radiation Oncology Chilango Michel MD [facility] RADIATION ONCOLO [place], [place] [address] (Wo rk) 01/29/2022 Infusion Hematology and Oncology 02/05/2022 Infusion Hematology and Oncology documented as of this encounter Visit Diagnoses Not on filedocumented in this encounter Care Teams Ct Mri Technologist Relationship Specialty Start Date End Date Amelia Gomes APRN PCP - General Family Medicine 10/17/[address] [place] [address] documented as of this encounter
--- OUTSIDE RECORDS SUMMARY | 2022-01-24 16:45 | XMS_ITS | Encounter Summary ---
:1935 Author Organization [facility] [place] [address] Care Team Providers Name Role Phone Amelia Gomes Sarina CARLOS Primary Care Provider [phone] Encounter Details Date Type Department Care Team Description 11/13/2021 Laboratory Appointment Lab 3L [facility] Pre-op testing; [facility] [place] [address] Social History Tobacco Use Types Packs/Day [...] [facility] DR ONCOLOGY DEPT. [place], [place] [address] (Wo rk) 01/28/2022 Office Visit Radiation Oncology Chilango Michel MD [facility] RADIATION ONCOLO GY [place], [place] [address] (Wo rk) 01/29/2022 Infusion Hematology [...] athologist Signature PT 11.7 9.4 - 12.5 [facility] LABORATORY INR 1.0 [facility] LABORATORY Comment: An INR <2.0 [...] Organization Address City/State/[place] [address] (ABNORMAL) Hemogram (11/13/2021 7:59 AM EDT) Analysis Performed At Patho logist Time Signature WBC 6.5 4.0 - 9.5 [facility] x10(3)/[facility] LABORATORY RBC 4.84 4.58 - FAN KENN 5.54 [facility] x10(6)/[facility] LABORATORY Hemoglobin 15.1 13.7 - [facility] g/dL [facility] LABORATORY Hematocrit 45.7 40.5 - [facility] 48.5 % [facility] LABORATORY MCV 94.4 (H) 82.9 - [facility] KENN 93.1 [facility] LABORATORY MCH 31.2 27.5 - [place] 32.1 pg [facility] LABORATORY MCHC 33.0 32.0 - [facility] 35.7 g/dL [facility] LABORATORY Platelets 236 145 - 357 [facility] x10(3)/[facility] LABORATORY RDWSD 47.2 (H) 36.0 - [facility] KENN 45.0 [facility] LABORATORY RDWCV 13.5 11.4 - [facility] KENN 13.8 % [facility] LABORATORY MPV 8.8 7.6 - 12.9 [facility] nRBC % Auto 0.0 % [facility] LABORATORY nRBC Abs Auto 0.000 0.000 - [facility] 0.000 [facility] x10(3)/[facility] LABORATORY Specimen Anatomical Collection Method Collection Time Receive d Time (Source) Location / / Volume Laterality Blood 11/13/2021 7:59 AM 2 8:07 EDT AM EDT Resulting Agency Comment Spec In Lab Kale Sy MD HEMATOLOGY ORDERABLES Performing Organization Address City/State/[place] [address] documented in this encounter Visit Diagnoses Diagnosis Pre-op testing Preoperative examination, unspecified Tonsil cancer Malignant neoplasm of tonsil documented in this encounter Care Teams Drilling Foreman Relationship Specialty Start Date End Date Amelia Gomes APRN PCP - General Family Medicine 10/17/[address] [place] [address] documented as of this encounter
--- OUTSIDE RECORDS SUMMARY | 2022-01-24 16:45 | XMS_ITS | Encounter Summary ---
:1935 Author Organization [place] [address] Care Team Providers Name Role Phone Amelia Gomes APRN Primary Care Provider [phone] Encounter Details Date Type Department Care Team Description 12/09/2021 Orders Only Hematology and Oncology at Kale Sy MD [facility] Osorio alanis [place] [address] [place] [address] [phone] (Wo rk) Social History Tobacco Use Types [...] [facility] DR ONCOLOGY DEPT. [place], [place] [address] (Wo rk) 01/28/2022 Office Visit Radiation Oncology Chilango Michel MD [facility] RADIATION ONCOLO [place], [place] [address] (Wo rk) 01/29/2022 Infusion Hematology and Oncology 02/05/2022 Infusion Hematology and Oncology documented as of this encounter Visit Diagnoses Not on filedocumented in this encounter Care Teams Clinical Nursing Assistant Relationship Specialty Start Date End Date Amelia Gomes APRN PCP - General Family Medicine 10/17/20 [facility] [address] [place] [address] documented as of this encounter
--- OUTSIDE RECORDS SUMMARY | 2022-01-24 16:45 | XMS_ITS | Encounter Summary ---
:1935 Author Organization [facility] [place] [address] Care Team Providers Name Role Phone Amelia Gomes Sarina CARLOS Primary Care Provider [phone] Reason for Referral Consultation (Routine) - Closed Specialty Diagnoses / Procedures Referred By Contact Refer red To Contact Radiation Oncology Diagnoses Tonsil cancer Marito Michel MD [facility] Rad Onc Office Procedures Simulation for Radiation Therapy Planning [facility] [place] [address] [place] [address] Phone: Fax: Referral ID Status Reason Start Date Expiration Date Visits V isits Requested Authorized [id number] Closed Consult, 11/18/2021 11/18/2022 1 1 Test & Treat Encounter Details Date Type Department Care Team Description 11/18/2021 Orders Only Radiation Oncology a t [facility] Marito Michel MD Tonsil cancer [facility] [place] [address] RADIATION ONCOLOGY [phone] [place], [place] [address] (Wo rk) Social History Tobacco [...] Mirta Sy MD [facility] ONCOLOGY DEPT. [place], [place] [address] (Wo rk) 01/28/2022 Office Visit Radiation Oncology Chilango Michel MD [facility] RADIATION ONCOLO [place], [place] [address] (Wo alondra) 01/29/2022 Infusion Hematology and Oncology 02/05/2022 Infusion Hematology and Oncology Scheduled Orders Name Type Priority Associated Diagnoses Order S chedule Simulation for Radiation Procedures Routine Tonsil cancer Or dered: 11/18/2021 Therapy Planning documented as of this encounter Visit Diagnoses Diagnosis Tonsil cancer Malignant neoplasm of tonsil documented in this encounter Care Teams Dam Operator Relationship Specialty Start Date End Date Amelia Gomes APRN PCP - General Family Medicine 10/17/20 [address] [facility] [place] [address] documented as of this encounter
--- OUTSIDE RECORDS SUMMARY | 2022-01-24 16:45 | XMS_ITS | Encounter Summary ---
:1935 Author Organization [facility] [place] [address] Care Team Providers Name Role Phone Amelia Gomes APRN Primary Care Provider [phone] Reason for Visit Reason Onset Date Comments Follow-up 12/10/2021 S/p chemotherapy Encounter Details Date Type Department Care Team Description 12/10/2021 Telephone Hematology/Oncology at [facility] Sneed waleksey (S/p [facility] Alexander Kamara RN chemotherapy ) [address] [place] [phone] Social History Tobacco Use Types Packs/Day [...] Visit Hematology and Oncology Mirta Sy MD [facility] ONCOLOGY DEPT. [place], [place] [address] (Wo rk) 01/28/2022 Office Visit Radiation Oncology Chilango Michel MD [facility] RADIATION ONCOLO [place], [place] [address] (Wo rk) 01/29/2022 Infusion Hematology and Oncology 02/05/2022 Infusion Hematology and Oncology documented as of this encounter Visit Diagnoses Not on filedocumented in this encounter Care Teams Rfp Writer Relationship Specialty Start Date End Date Amelia Gomes APRN PCP - General Family Medicine 10/17/20 [address] [place] [address] documented as of this encounter
--- OUTSIDE RECORDS SUMMARY | 2022-01-24 16:45 | XMS_ITS | Encounter Summary ---
:1935 Author Organization [facility] [place] [address] Care Team Providers Name Role Phone MateoZaid simpsonAmeliamat Branch APRN Primary Care Provider [phone] Reason for Visit Consultation (Routine) - Closed Specialty Diagnoses / Procedures Referred By Contact Refer red To Contact Radiation Oncology Diagnoses Tonsil cancer Marito Michel MD [facility] Rad Onc Office Procedures Simulation for Radiation Therapy Planning [facility] [place]IATION [place] [address] [place] [address] Phone: Fax: Referral ID Status Reason Start Date Expiration Date Visits V isits Requested Authorized [id number] Closed Consult, 11/18/2021 11/18/2022 1 1 Test & Treat Encounter Details Date Type Department Care Team Description 11/20/2021 Ancillary Appointment Radiation Oncology at Valerie Michel [facility] [place] [address] RADIATION ONCOLOGY [phone] [place], [place] [address] Social History Tobacco Use Types [...] Hematology and Oncology Mirta Sy MD [facility] ER DR ONCOLOGY DEPT. [place], [place] [address] (Wo rk) 01/28/2022 Office Visit Radiation Oncology Chilango Michel MD [facility] ER RADIATION ONCOLO GY [place], [place] [address] (Wo rk) 01/29/2022 Infusion Hematology and Oncology 02/05/2022 Infusion Hematology and Oncology documented as of this encounter Visit Diagnoses Not on filedocumented in this encounter Care Teams Licensed Esthetician Relationship Specialty Start Date End Date Amelia Gomes APRN PCP - General Family Medicine 10/17/20 [address] [place] [address] documented as of this encounter
--- OUTSIDE RECORDS SUMMARY | 2022-01-24 16:45 | XMS_ITS | Encounter Summary ---
:1935 Author Organization [facility] [place] [address] Care Team Providers Name Role Phone MateoZaid simpsonAmeliamat Branch APRN Primary Care Provider [phone] Reason for Visit Reason Comments IV Medication Hydration Treatment/Therapy Plan Authorization (Routine) - Authorized Specialty Diagnoses / Procedures Referred By Contact Refer red To Contact Hematology and Oncology Diagnoses Tonsil cancer History of kidney stones Gilbert's syndrome Kale Sy MD [facility] Hem Onc Infusion Procedures , [facility] [address] [facility] [place], [place] ONCOLOGY DEPT. [address] [place] [address] Referral ID Status Reason Start Date Expiration Date Visits V isits Requested Authorized [id number] Authorized 12/08/2021 02/25/2022 99 99 Encounter Details Date Type Department Care Team Description 01/02/2022 Infusion Hematology Oncology at [facility] lbert's syndrome; [facility] Tonsil cancer; [address] [place] [address] History of kidney stones [place], [place] [phone] Social History Tobacco Use [...] today. OBJECTIVE LAB DATA: Done 12/29/21 at [facility] and [facility] for treatment today. IV ACCESS: Implanted [...] [facility] DR ONCOLOGY DEPT. [place], [place] [address] (Wo rk) 01/28/2022 Office Visit Radiation Oncology Chilango Michel MD [facility] RADIATION ONCOLO [place]Y [place], [place] [address] (Wo rk) 01/29/2022 Infusion Hematology [...] hours documented in this encounter Care Teams Photostat Operator Helper Relationship Specialty Start Date End Date Amelia Gomes APRN PCP - General Family Medicine 10/17/[address] [place] [address] documented as of this encounter
--- OUTSIDE RECORDS SUMMARY | 2022-01-24 16:45 | XMS_ITS | Encounter Summary ---
:1935 Author Organization [facility] [place] [address] Care Team Providers Name Role Phone Amelia Gomes APRN Primary Care Provider [phone] Encounter Details Date Type Department Care Team Description 12/22/2021 Office Visit Hematology/Oncology at Kale Sy MD Tonsil cancer [address] ONCOLOGY DEPT. [place], [place] [phone] Social History Tobacco Use Types Packs/Day Years [...] original note were not included. Hematology/Oncology Clinic [facility] Patient Active Problem List Diagnosis [...] 13. Magnesium 1.9. Today's audiogram from the [facility] practice: Impression: Clinical T2 N2 [...] in Therapy Plan. Kale Sy MD, FACP police records clerk Hematology/Oncology Section [facility]/[address] [address] Voice recognition software used for this note; please excuse farm field manager errors. I personally reviewed past medical, surgical, [...] mouth. ??? fluticasone propionate (FLONASE) 50 mcg/actuation [place], Suspension by Each Nare route daily. ??? simvastatin (ZOCOR) 80 mg tablet 80MG, PO, Every other day ??? allopurinol (ZYLOPRIM) 300 mg tablet 300mg, PO, QAM Review of Systems: Review of systems is negative for other HIGHWAY ADMINISTRATIVE ENGINEER, bone, pulmonary, cardiac, GI, , extremity, neurologic, endocrine, skin, constitutional, emotional, or functional problems. Vitals Flowsheet Row Office Visit from 12/22/2021 in Hematology/Oncology at [facility] Weight 86 kg (189 lb 9.6 oz) [...] MD [facility] ONCOLOGY DEPT. [place], [place] [address] (Wo rk) 01/28/2022 Office Visit Radiation Oncology Chilango Michel MD [facility] RADIATION ONCOLO [place], [place] [address] (Wo rk) 01/29/2022 Infusion Hematology and Oncology 02/05/2022 Infusion Hematology and Oncology documented as of this encounter Visit Diagnoses Diagnosis Tonsil cancer Malignant neoplasm of tonsil documented in this encounter Care Teams Laborer Relationship Specialty Start Date End Date Amelia Gomes APRN PCP - General Family Medicine 10/17/[address] [place] [address] documented as of this encounter
--- OUTSIDE RECORDS SUMMARY | 2022-01-24 16:45 | XMS_ITS | Encounter Summary ---
:1935 Author Organization [facility] [place] [address] Care Team Providers Name Role Phone Amelia Gomes APRN Primary Care Provider [phone] Reason for Visit Reason Comments Chemotherapy C1D15 Cisplatin Encounter Details Date Type Department Care Team Description 12/23/2021 Infusion Hematology Oncology at [facility] lbert's syndrome; [facility] Tonsil cancer; [address] History of kidney stones [place], [place] [phone] Social History Tobacco Use [...] miralax OBJECTIVE LAB DATA: Done 12/22/21 at [facility] and [facility] for treatment today. IV ACCESS: Implanted [...] [facility] DR ONCOLOGY DEPT. [place], [place] [address] (Wo rk) 01/28/2022 Office Visit Radiation Oncology Chilango Michel MD [facility] RADIATION ONCOLO GY [place], [place] [address] (Wo rk) 01/29/2022 Infusion Hematology [...] 2 minutes is a recommendation from the import export manager., Routine CISplatin (Platinol) 82 mg in New [...] post-CISplatin. documented in this encounter Care Teams Product Manager Relationship Specialty Start Date End Date Amelia Gomes APRN PCP - General Family Medicine 10/17/[address] [place] [address] documented as of this encounter
--- OUTSIDE RECORDS SUMMARY | 2022-01-24 16:45 | XMS_ITS | Encounter Summary ---
:1935 Author Organization [facility] [place] [address] Care Team Providers Name Role Phone Amelia Gomes APRN Primary Care Provider Encounter Details Date Type Department Care Team Description 12/24/2021 Office Visit Radiation Oncology at [facility] Marito MD Tonsil cancer [address] RADIATION ONCOLOGY [place], [place] [phone] Social History Tobacco Use Types Packs/Day Years [...] at least 8 times daily ?? 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 Weight stable, mix of G [...] predominantly whispered speech NA ??? National Cancer [place] (NCI) Comprehensive Cancer Center ??? [place] [employer] Commission on Cancer (ACS López) Accredited Cancer Program ??? [place] [employer] (ACR) Accredited Radiation Oncology Program documented in this encounter Plan of Treatment Upcoming Encounters Date Type Specialty Care Team Description 01/26/2022 Infusion Hematology and Oncology 01/26/2022 Office Visit Hematology and Oncology Mirta Sy MD [facility] DR ONCOLOGY DEPT. [place], [place] [address] (Wo rk) 01/28/2022 Office Visit Radiation Oncology Chilango Michel MD [facility] RADIATION ONCOLO [place], [place] [address] (Wo rk) 01/29/2022 Infusion Hematology and Oncology 02/05/2022 Infusion Hematology and Oncology documented as of this encounter Visit Diagnoses Diagnosis Tonsil cancer Malignant neoplasm of tonsil documented in this encounter Care Teams Leasing Sales Consultant Relationship Specialty Start Date End Date Amelia Gomes APRN PCP - General Family Medicine 10/17/[address] [place] [address] [address] [place] [address] documented as of this encounter
--- OUTSIDE RECORDS SUMMARY | 2022-01-24 16:45 | XMS_ITS | Encounter Summary ---
:1935 Author Organization [facility] [place] [address] Care Team Providers Name Role Phone Amelia Gomes APRN Primary Care Provider [phone] Encounter Details Date Type Department Care Team Description 11/24/2021 [facility] Tonsil cancer [address] [place]ATOLOGY [place] [address] ONCOLOGY [phone] [place], [place] [address] (Wo rk) Social History Tobacco Use Types [...] Dawn RD - 11/24/2021 3:00 PM EDT [facility] Initial Assessment Patient Name: Pion Wong Diagnosis: Right metastatic tonsil cancer, possible [...] water Patient lives with his Angelina in [place]. He follows a regular diet but PO [...] Where was it placed? (facility and dept) [facility] Currently using tube? No Patient is flushing tube daily. He does not want to start feedings yet. Nutrition Diagnosis 11/26/2021 Problems Swallowing difficulty;Involuntary weight loss related to tonsil cancer with odynophagia at baseline as evidenced by 13# loss over the past 9 weeks(6.2% body weight). Estimated needs based on current weight of 87.6 [id number] kcals (25-30 kcal/kg) 88-132 g protein (1-1.5 [...] Visit Hematology and Oncology Mirta Sy MD [facility] DR ONCOLOGY DEPT. [place], [place] [address] (Wo rk) 01/28/2022 Office Visit Radiation Oncology Chilango Michel MD [facility] RADIATION ONCOLO [place], [place] [address] (Wo rk) 01/29/2022 Infusion Hematology and Oncology 02/05/2022 Infusion Hematology and Oncology documented as of this encounter Visit Diagnoses Diagnosis Tonsil cancer Malignant neoplasm of tonsil documented in this encounter Care Teams Merchandise Marker Relationship Specialty Start Date End Date Amelia Gomes APRN PCP - General Family Medicine 10/17/[address] [place] [address] documented as of this encounter
--- OUTSIDE RECORDS SUMMARY | 2022-01-24 16:45 | XMS_ITS | Encounter Summary ---
:1935 Author Organization [facility] [place] [address] Care Team Providers Name Role Phone Amelia Gomes Sarina CARLOS Primary Care Provider [phone] Encounter Details Date Type Department Care Team Description 12/03/2021 Orders Only Radiation Oncology a t [facility] Marito Michel MD Tonsil cancer [facility] [place] [address] RADIATION ONCOLOGY [phone] [place], [place] [address] (Wo rk) Social History Tobacco [...] Oncology Mirta Sy MD [facility] ONCOLOGY DEPT. [place], [place] [address] (Wo rk) 01/28/2022 Office Visit Radiation Oncology Chilango Michel MD [facility] RADIATION ONCOLO [place]Y [place], [place] [address] (Wo rk) 01/29/2022 Infusion Hematology [...] tonsil documented in this encounter Care Teams Hot Wire Glass Tube Cutter Relationship Specialty Start Date End Date Amelia Gomes APRN PCP - General Family Medicine 10/17/[address] [place] [address] documented as of this encounter
--- OUTSIDE RECORDS SUMMARY | 2022-01-24 16:45 | XMS_ITS | Encounter Summary ---
:1935 Author Organization [facility] [place] [address] Care Team Providers Name Role Phone MateoHayde simpsonleonarda Branch APRN Primary Care Provider [phone] Reason for Visit Reason Comments Chemotherapy C1D8 Cisplatin Encounter Details Date Type Department Care Team Description 12/16/2021 Infusion Hematology Oncology at [facility] Tonsil cancer [address] [place] [phone] Social History Tobacco Use Types [...] today. OBJECTIVE LAB DATA: Done 12/15/21 at [facility] for treatment today. IV ACCESS: [...] [facility] DR ONCOLOGY DEPT. [place], [place] [address] (Wo rk) 01/28/2022 Office Visit Radiation Oncology Chilango Michel MD [facility] RADIATION ONCOLO [place]Y [place], [place] [address] (Wo rk) 01/29/2022 Infusion Hematology [...] 2 minutes is a recommendation from the grommet man., Routine CISplatin (Platinol) 82 mg in sodium [...] Medication documented in this encounter Care Teams Buncher Machine Relationship Specialty Start Date End Date Amelia Gomes APRN PCP - General Family Medicine 10/17/20 [address] [facility] [place] [address] documented as of this encounter
--- OUTSIDE RECORDS SUMMARY | 2022-01-24 16:45 | XMS_ITS | Encounter Summary ---
:1935 Author Organization [facility] [place] [address] Care Team Providers Name Role Phone MateoHayde simpsonleonarda Branch APRN Primary Care Provider [phone] Encounter Details Date Type Department Care Team Description 12/09/2021 Notes [facility] [address] [phone] Social History Tobacco Use [...] he is in good health. 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 Patient verbalized understanding. Surveys: He filled out required QOL surveys required prior to chemo infusion today. They were emailed and theoriginal copies mailed to GRACE Mars at [facility]. PLAN 1. Subject agrees [...] [facility] DR ONCOLOGY DEPT. [place], [place] [address] (Wo rk) 01/28/2022 Office Visit Radiation Oncology Chilango Michel MD [facility] RADIATION ONCOLO [place]Y [place], [place] [address] (Wo rk) 01/29/2022 Infusion Hematology and Oncology 02/05/2022 Infusion Hematology and Oncology documented as of this encounter Visit Diagnoses Not on filedocumented in this encounter Care Teams Human Services Worker Relationship Specialty Start Date End Date Amelia Gomes APRN PCP - General Family Medicine 10/17/[address] [place] [address] [address] [place] [address] documented as of this encounter
--- OUTSIDE RECORDS SUMMARY | 2022-01-24 16:45 | XMS_ITS | Encounter Summary ---
:1935 Author Organization [facility] [place] [address] Care Team Providers Name Role Phone Amelia Gomes APRN Primary Care Provider [phone] Encounter Details Date Type Department Care Team Description 01/02/2022 [facility] Tonsil cancer [address] HEMATOLOGY AND [address] ONCOLOGY [phone] [place], [place] [address] (Wo rk) Social History Tobacco [...] in fluid status. Estimated needs based on 84.6??[id number]??kcals (25-30 kcal/kg) 885-128??g protein (1-1.5 g/kg) 1 [...] [facility] DR ONCOLOGY DEPT. 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
--- OUTSIDE RECORDS SUMMARY | 2022-01-24 16:45 | XMS_ITS | Encounter Summary ---
:1935 Author Organization [facility] [place] [address] Care Team Providers Name Role Phone Amelia Gomes APRN Primary Care Provider [phone] Encounter Details Date Type Department Care Team Description 11/24/2021 Office Visit Hematology/Oncology at Kale Sy MD Tonsil cancer [address] ONCOLOGY DEPT. [place], [place] [phone] Social History Tobacco Use Types Packs/Day Years [...] original note were not included. Hematology/Oncology Clinic [facility] Patient Active Problem List [...] We talked about the use of an [id number] abdominal binder to protect the tube when [...] chemotherapy thesame time. Kale Sy MD, FACP kindergarten aide Hematology/Oncology Section [facility]/[address] [address] Voice recognition software used for this note; please excuse insurance claims representative errors. I personally reviewed past medical, surgical, family medical histories, reviewed current medications, vital signs, labs, and performed full review of systems. These are documented below the narrative for clarity and succinctness. No outpatient medications have been marked as taking for the 11/24/21 encounter (Office Visit) with Kale Sy MD. Review of Systems: Review of systems is negative for other ADOLESCENT COORDINATOR, bone, pulmonary, cardiac, GI, , extremity, neurologic, endocrine, skin, constitutional, emotional, or functional problems. Vitals Flowsheet Row Ancillary Appointment from 11/20/2021 in Radiation Oncology at [facility] Weight 89.3 kg (196 lb 12.8 oz) [...] MD [facility] DR ONCOLOGY DEPT. 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
--- OUTSIDE RECORDS SUMMARY | 2022-01-24 16:45 | XMS_ITS | Encounter Summary ---
:1935 Author Organization [facility] [place] [address] Care Team Providers Name Role Phone MateoZaid simpsonAmeliamat Branch APRN Primary Care Provider [phone] Reason for Visit Reason Comments Chemotherapy Arm 4, Day 22 - Cisplatin co ncurrent with radiation Encounter Details Date Type Department Care Team Description 12/30/2021 Infusion Hematology Oncology at [facility] Tonsil cancer [address] [place] [phone] Social History Tobacco Use Types [...] MD [facility] DR ONCOLOGY DEPT. [place], [place] [address] (Wo rk) 01/28/2022 Office Visit Radiation Oncology Chilango Michel MD [facility] RADIATION ONCOLO [place], [place] [address] (Wo rk) 01/29/2022 Infusion Hematology [...] 2 minutes is a recommendation from the stiff leg derrick operator., Routine CISplatin (Platinol) 81 mg in [...] Post-cisplatin documented in this encounter Care Teams Health Club Attendant Relationship Specialty Start Date End Date Amelia Gomes APRN PCP - General Family Medicine 10/17/[address] [place] [address] documented as of this encounter
--- OUTSIDE RECORDS SUMMARY | 2022-01-24 16:45 | XMS_ITS | Encounter Summary ---
:1935 Author Organization [place] [address] Care Team Providers Name Role Phone Amelia Gomes APRN Primary Care Provider [phone] Encounter Details Date Type Department Care Team Description 12/10/2021 Office Visit Radiation Oncology at [facility] Marito MD Tonsil cancer [address] RADIATION ONCOLOGY [place], [place] [phone] Social History Tobacco Use Types Packs/Day Years [...] from the original note were not included. [facility] Medicine Radiation Oncology Radiation Oncology On-treatment Visit [...] at least 8 times daily ?? Alimentation: exhibit designer following ?? Weight stable, all by mouth [...] whispered speech NA ??? National Cancer [place] (NCI) Comprehensive Cancer Center ??? [employer] Commission on Cancer (ACS López) Accredited Cancer Program ??? [employer] (ACR) Accredited Radiation Oncology Program documented in this encounter Plan of Treatment Upcoming Encounters Date Type Specialty Care Team Description 01/26/2022 Infusion Hematology and Oncology 01/26/2022 Office Visit Hematology and Oncology Mirta Sy MD [facility] DR ONCOLOGY DEPT. 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
--- OUTSIDE RECORDS SUMMARY | 2022-01-24 16:45 | XMS_ITS | Encounter Summary ---
:1935 Author Organization [place] [address] Care Team Providers Name Role Phone Amelia Gomes APRN Primary Care Provider [phone] Encounter Details Date Type Department Care Team Description 12/29/2021 Office Visit Hematology/Oncology at Kale Gilmore MD Tonsil cancer [address] ONCOLOGY DEPT. [place], [place] [phone] Social History Tobacco Use Types Packs/Day Years [...] note were not included. Hematology/Oncology Clinic [facility] Patient Active Problem List Diagnosis ??? Tonsil [...] that is insufficient. Kale Sy MD, FACP government affairs director Hematology/Oncology Section [facility] [place] [address] Voice recognition software used for this note; please excuse service now developer errors. I personally reviewed past medical, surgical, [...] mouth. ??? fluticasone propionate (FLONASE) 50 mcg/actuation [facility], Suspension by Each Nare route daily. ??? simvastatin (ZOCOR) 80 mg tablet 80MG, PO, Every other day ??? allopurinol (ZYLOPRIM) 300 mg tablet 300mg, PO, QAM Review of Systems: Review of systems is negative for other ENVIRONMENTAL SCIENCE TECHNICIAN, bone, pulmonary, cardiac, GI, , extremity, neurologic, endocrine, skin, constitutional, emotional, or functional problems. Vitals Flowsheet Row Office Visit from 12/29/2021 in Hematology/Oncology at [facility] Weight 84.9 kg (187 lb [...] I spoke with him via telephone from [place]. Pt was also evaluated by Dr Sy [...] closed, the patient was instructed to call [facility] at [phone] and ask for the induction heating equipment setter radiation or medical oncologist. Patient verbalized understanding. [...] [facility] DR ONCOLOGY DEPT. 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
--- OUTSIDE RECORDS SUMMARY | 2022-01-24 16:45 | XMS_ITS | Encounter Summary ---
:1935 Author Organization [place] [address] Care Team Providers Name Role Phone Amelia Gomes Sarina CARLOS Primary Care Provider [phone] Reason for Referral Audiology Exam (Routine) - Authorized Specialty Diagnoses / Procedures Referred By Contact Refer red To Contact Diagnoses Tonsil cancer Kale Sy MD [facility] [place] [address] Referral ID Status Reason Start Date Expiration Date Visits V isits Requested Authorized [id number] Authorized Test Only 12/10/2021 06/08/2022 1 1 Encounter Details Date Type Department Care Team Description 12/10/2021 Orders Only Hematology and Oncology at Kale Sy MD Tonsil cancer [facility] Osorio [place] [address] [place] [address] [phone] (Wo rk) Social History Tobacco Use Types [...] [facility] DR ONCOLOGY DEPT. 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
--- OUTSIDE RECORDS SUMMARY | 2022-01-24 16:45 | XMS_ITS | Encounter Summary ---
:1935 Author Organization [facility] [place] [address] Care Team Providers Name Role Phone Amelia oGmes APRN Primary Care Provider [phone] Encounter Details Date Type Department Care Team Description 12/08/2021 Orders [facility]il [facility] [address] ONCOLOGY DEPT. [place], [place] [phone] Social History Tobacco Use Types Packs/Day Years [...] Oncology Mirta Sy MD [facility] ONCOLOGY DEPT. 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
--- OUTSIDE RECORDS SUMMARY | 2022-01-24 16:45 | XMS_ITS | Encounter Summary ---
:1935 Author Organization [facility] [place] [address] Care Team Providers Name Role Phone MateoHayde simpsonleonarda Branch APRN Primary Care Provider [phone] Encounter Details Date Type Department Care Team Description 12/26/2021 Notes [facility] [address] [phone] Social History Tobacco Use [...] IV hydration . He also saw our Child Care Counselor, Gris Dawn. Please see her note. The [...] [facility] at [phone] and ask for the personal lines appraiser radiation or medical oncologist. Patient verbalized understanding. [...] MD [facility] DR ONCOLOGY DEPT. [place], [place] [address] (Wo rk) 01/28/2022 Office Visit Radiation Oncology Chilango Michel MD [facility] RADIATION ONCOLO [place], [place] [address] (Wo rk) 01/29/2022 Infusion Hematology and Oncology 02/05/2022 Infusion Hematology and Oncology documented as of this encounter Visit Diagnoses Not on filedocumented in this encounter Care Teams Web Press Operator Apprentice Relationship Specialty Start Date End Date Amelia Gomes APRN PCP - General Family Medicine 10/17/[address] [place] [address] [address] [place] [address] documented as of this encounter
--- OUTSIDE RECORDS SUMMARY | 2022-01-24 16:45 | XMS_ITS | Encounter Summary ---
:1935 Author Organization [facility] [place] [address] Care Team Providers Name Role Phone Amelia Gomes Sarina CARLOS Primary Care Provider Reason for Referral Diagnostic Test (Routine) - Closed Specialty Diagnoses / Procedures Referred By Contact Refer red To Contact Radiology Diagnoses Tonsil cancer Carlos Lezama MD [facility] Interventionl Rad Procedures IR Suture Release [facility] [place] [address] [place] [address] Referral ID Status Reason Start Date Expiration Date Visits V isits Requested Authorized [id number] Closed Specialty 11/13/2021 05/16/2023 1 1 Service Requested Reason for Visit Diagnostic Test (Routine) - Closed Specialty Diagnoses / Procedures Referred By Contact Refer red To Contact Radiology Diagnoses Tonsil cancer Carlos Lezama MD [facility] Interventionl Rad Procedures IR Suture Release [facility] [place] [address] [place] [address] Referral ID Status Reason Start Date Expiration Date Visits V isits Requested Authorized [id number] Closed Specialty 11/13/2021 05/16/2023 1 1 Service Requested Encounter Details Date Type Department Care Team Description 11/20/2021 Hospital Encounter Radiology at [facility] [place] [place] Kale Sy MD Tonsil [place] [address] ONCOLOGY DEPT. [phone] [place] [address] (Wo rk) Social History [...] Quinones RN - 11/20/2021 1:56 PM EDT [facility] INTERVENTIONAL RADIOLOGY NURSES NOTE FOR [...] is during regular office hours, please call [phone]. If it is after regular office hours, oron weekends or holidays, please call [phone] and ask to speak to the Rating Examiner on callfor Interventional Radiology. Revised 01/12/19 documented [...] route 0 07/02 (FLONASE) 50 mcg/actuation daily. [place], Suspension simvastatin (ZOCOR) 80 mg 80MG, PO, [...] MD [facility] DR ONCOLOGY DEPT. 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
--- OUTSIDE RECORDS SUMMARY | 2022-01-24 16:45 | XMS_ITS | Encounter Summary ---
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 [address] [place] [address] Referral ID Status Reason Start Date Expiration Date Visits V isits Requested Authorized [id number] Authorized 12/08/2021 02/25/2022 99 99 Encounter Details Date Type Department Care Team Description 12/26/2021 Infusion Hematology Oncology at [facility] lbert's syndrome; [facility] Tonsil cancer; [address] [place] [address] History of kidney stones [place], [place] [phone] Social History Tobacco Use [...] today. OBJECTIVE LAB DATA: Done 12/22/21 at [facility] for [...] Sy MD [facility] DR ONCOLOGY DEPT. [place], [place] [address] (Wo rk) 01/28/2022 Office Visit Radiation Oncology Chilango Michel MD [facility] RADIATION ONCOLO [place], [place] [address] (Wo rk) 01/29/2022 Infusion [...] hours documented in this encounter Care Teams Md Urologist Relationship Specialty Start Date End Date Amelia oGmes APRN PCP - General Family Medicine 10/17/[address] [place] [address] documented as of this encounter
--- OUTSIDE RECORDS SUMMARY | 2022-01-24 16:45 | XMS_ITS | Encounter Summary ---
:1935 Author Organization [facility] [place] [address] Care Team Providers Name Role Phone Amelia Gomes APRN Primary Care Provider [phone] Encounter Details Date Type Department Care Team Description 12/11/2021 Telephone Radiation Oncology a t [facility] Jose C Arita [address] [place], [place] [phone] Social History Tobacco Use [...] Audiogram referral Audiogram referral walked over to [facility] audiology on 12/11. Asked that they schedule pt chinedu and to let us know when pt has been scheduled. documented in this encounter Plan of Treatment Upcoming Encounters Date Type Specialty Care Team Description 01/26/2022 Infusion Hematology and Oncology 01/26/2022 Office Visit Hematology and Oncology Mirta Sy MD [facility] [address] ONCOLOGY DEPT. [place], [place] [address] (Wo rk) 01/28/2022 Office Visit Radiation Oncology Chilango Michel MD [facility] RADIATION ONCOLO [place], [place] [address] (Wo rk) 01/29/2022 Infusion Hematology and Oncology 02/05/2022 Infusion Hematology and Oncology documented as of this encounter Visit Diagnoses Not on filedocumented in this encounter Care Teams Search Planner Relationship Specialty Start Date End Date Amelia Gomes APRN PCP - General Family Medicine 10/17/[address] [place] [address] documented as of this encounter
--- OUTSIDE RECORDS SUMMARY | 2022-01-24 16:45 | XMS_ITS | Encounter Summary ---
:1935 Author Organization [facility] [place] [address] Care Team Providers Name Role Phone MateoHayde simpsonleonarda Branch APRN Primary Care Provider [phone] Encounter Details Date Type Department Care Team Description 12/02/2021 Notes Only [facility] [address] [phone] Social History Tobacco Use [...] Lee RN - 12/02/2021 5:40 PM EDT [place], [place] Documentation of Informed Consent to Participate [...] in the mail( a research nurse from [facility] mailed it to him) and he read [...] form was sent to GRACE Mathews via [employer] mail and also Emailed to her. Patient [...] Visit Hematology and Oncology Mirta Sy MD [facility] [address] ONCOLOGY DEPT. [place], [place] [address] (Wo rk) 01/28/2022 Office Visit Radiation Oncology Chilango Michel MD [facility] RADIATION ONCOLO [place], [place] [address] (Wo rk) 01/29/2022 Infusion Hematology and Oncology 02/05/2022 Infusion Hematology and Oncology documented as of this encounter Visit Diagnoses Not on filedocumented in this encounter Care Teams Keg Raiser Relationship Specialty Start Date End Date Amelia Gomes APRN PCP - General Family Medicine 10/17/[address] [place] [address] documented as of this encounter
--- OUTSIDE RECORDS SUMMARY | 2022-01-24 16:45 | XMS_ITS | Encounter Summary ---
:1935 Author Organization [facility] [place] [address] Care Team Providers Name Role Phone Amelia Gomes APRN Primary Care Provider [phone] Encounter Details Date Type Department Care Team Description 12/08/2021 Office Visit Hematology/Oncology Kale Sy, Tons il cancer; at [facility] Xerostomia due to radiotherapy [address] [place] [phone] ONCOLOGY DEPT. [phone] [place], [place] [address] Social History Tobacco Use Types Packs/Day Years [...] - 12/08/2021 3:15 PM EDT Hematology/Oncology Clinic [facility] [place] [place] Patient Active Problem List Diagnosis ??? Tonsil [...] History of nonmelanoma skin cancer BCC- left [facility]. He is due to start treatment tomorrow. After thorough discussion and review the informed consent, liza been enrolled on clinical trial and [facility] N009, and has been randomized to the [...] 0.2. White count is 5.91, hemoglobin 14.0, [id number]. Magnesium has been added to the lab [...] around the G-tube. Kale Sy MD, FACP laser systems engineer Hematology/Oncology Section [facility] [address] Voice recognition software used for this note; please excuse textile technologist errors. I personally reviewed past medical, surgical, [...] mouth. ??? fluticasone propionate (FLONASE) 50 mcg/actuation [place], Suspension by Each Nare route daily. ??? simvastatin (ZOCOR) 80 mg tablet 80MG, PO, Every other day ??? allopurinol (ZYLOPRIM) 300 mg tablet 300mg, PO, QAM Review of Systems: Review of systems is negative for other SHOVEL LOADER OPERATOR, bone, pulmonary, cardiac, GI, , extremity, neurologic, endocrine, skin, constitutional, emotional, or functional problems. Vitals Flowsheet Row Office Visit from 12/08/2021 in Hematology/Oncology at [facility] Weight 88 kg (194 lb) [...] [facility] DR ONCOLOGY DEPT. [place], [place] [address] (Wo alondra) 01/28/2022 Office Visit Radiation Oncology Chilango Michel MD [facility] RADIATION ONCOLO [place], [place] [address] (Wo alondra) 01/29/2022 Infusion Hematology [...] radiotherapy documented in this encounter Care Teams Wholesaler Relationship Specialty Start Date End Date Amelia Gomes APRN PCP - General Family Medicine 10/17/[address] [place] [address] documented as of this encounter
--- OUTSIDE RECORDS SUMMARY | 2022-01-24 16:45 | XMS_ITS | Encounter Summary ---
:1935 Author Organization [facility] [place] [address] Care Team Providers Name Role Phone Amelia Gomes APRN Primary Care Provider Encounter Details Date Type Department Care Team Description 12/19/2021 [facility] Tonsil cancer [address] HEMATOLOGY AND [address] ONCOLOGY [phone] [place], [place] [address] (Wo rk) Social History Tobacco [...] Enteral Nutrition: G-tube placed by IR in [place] on 11/13/21. He is flushing with water [...] of treatment Estimated needs based on 88.2 k5425-5774 kcals (25-30 kcal/kg) 88-132 g protein (1-1.5 [...] [facility] DR ONCOLOGY DEPT. [place], [place] [address] (Wo rk) 01/28/2022 Office Visit Radiation Oncology Chilango Michel MD [facility] RADIATION ONCOLO [place], [place] [address] (Wo rk) 01/29/2022 Infusion Hematology and Oncology 02/05/2022 Infusion Hematology and Oncology documented as of this encounter Visit Diagnoses Diagnosis Tonsil cancer Malignant neoplasm of tonsil documented in this encounter Care Teams Poultry Farm Supervisor Relationship Specialty Start Date End Date Amelia Gomes APRN PCP - General Family Medicine 10/17/[address] [place] [address] documented as of this encounter
--- OUTSIDE RECORDS SUMMARY | 2022-01-24 16:45 | XMS_ITS | Encounter Summary ---
:1935 Author Organization [facility] [place] [address] Care Team Providers Name Role Phone Amelia Gomes APRN Primary Care Provider [phone] Encounter Details Date Type Department Care Team Description 12/22/2021 [facility] Tonsil cancer [address] HEMATOLOGY AND [address] ONCOLOGY [phone] [place], [place] [address] (Wo rk) Social History Tobacco [...] MD [facility] DR ONCOLOGY DEPT. [place], [place] [address] (Wo rk) 01/28/2022 Office Visit Radiation Oncology Chilango Michel MD [facility] RADIATION ONCOLO GY [place], [place] [address] (Wo rk) 01/29/2022 Infusion Hematology and Oncology 02/05/2022 Infusion Hematology and Oncology documented as of this encounter Visit Diagnoses Diagnosis Tonsil cancer Malignant neoplasm of tonsil documented in this encounter Care Teams Customer Development Manager Relationship Specialty Start Date End Date Amelia Gomes APRN PCP - General Family Medicine 10/17/[address] [place] [address] documented as of this encounter
--- OUTSIDE RECORDS SUMMARY | 2022-01-24 16:45 | XMS_ITS | Encounter Summary ---
:1935 Author Organization [facility] [address] Care Team Providers Name Role Phone Amelia Gomes Sarina CARLOS Primary Care Provider [phone] Reason for Referral Speech Therapy (Routine) - Closed Specialty Diagnoses / Procedures Referred By Contact Refer red To Contact Speech Pathology / Diagnoses Tonsil cancer Kale Sy MD St Hem Onc Office Hematology and Oncology [address] ONCOLOGY DEPT. [address] [place] [address] Referral ID Status Reason Start Date Expiration Date Visits V isits Requested Authorized [id number] Closed Evaluate and 12/15/2021 12/15/2022 12 12 Treat Encounter Details Date Type Department Care Team Description 12/15/2021 Office Visit Hematology/Oncology at Kale Gilmore MD Tonsil cancer [address] ONCOLOGY DEPT. [place], [place] [phone] Social History Tobacco Use Types Packs/Day Years [...] - 12/15/2021 1:45 PM EDT Hematology/Oncology Clinic [facility] Patient Active Problem List Diagnosis ??? 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 Enrolled on [facility] HN-009, arm 4: weekly cisplatin with concurrent radiation 70 Gy instituted 12/09/2021 ??? Gilbert's syndrome ??? History of kidney stones Multiple urate stones Chronic allopurinol ??? S/P TKR (total knee replacement), bilateral ??? Hypercholesterolemia ??? Actinic keratosis ??? Filiform wart ??? AK (actinic keratosis) ??? SK (seborrheic keratosis) ??? History of nonmelanoma skin cancer BCC- left [place] [facility] followup. Starting week #2 [...] for exercise regimen. Kale Sy MD, FACP loan analyst Hematology/Oncology Section [facility] [place] [address] Voice recognition software used for this note; please excuse faculty member errors. I personally reviewed past medical, surgical, [...] mouth. ??? fluticasone propionate (FLONASE) 50 mcg/actuation [place], Suspension by Each Nare route daily. ??? simvastatin (ZOCOR) 80 mg tablet 80MG, PO, Every other day ??? allopurinol (ZYLOPRIM) 300 mg tablet 300mg, PO, QAM Review of Systems: Review of systems is negative for other LANOLIN PLANT OPERATOR, bone, pulmonary, cardiac, GI, , extremity, neurologic, endocrine, skin, constitutional, emotional, or functional problems. Vitals Flowsheet Row Office Visit from 12/15/2021 in Hematology/Oncology at [facility] Weight 88 kg (194 lb) Body [...] he is in good health. 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 Patient verbalized understanding. Surveys: None today . PLAN 1. Subject agrees to continue on study HN009 per protocol. Daily XRT 2. Chemo tomorrow; week 2 . 3. Ordered speech therpapy referral today. 4. Waiting for audiogram appointment. [place] is checking to see if it can be done locally in [facility]. Patient verbalizes understanding of, and agreement with, plan. Advised to contact this office for any questions/concerns, as well as for any new or worsening symptoms. documented in this encounter Plan of Treatment Upcoming Encounters Date Type Specialty Care Team Description 01/26/2022 Infusion Hematology and Oncology 01/26/2022 Office Visit Hematology and Oncology Mirta Sy MD [facility] DR ONCOLOGY DEPT. [place], [place] [address] (Wo rk) 01/28/2022 Office Visit Radiation Oncology Chilango Michel MD [facility] RADIATION ONCOLO [place], [place] [address] (Wo rk) 01/29/2022 Infusion Hematology and Oncology 02/05/2022 Infusion Hematology and Oncology Scheduled Referrals Name Type Priority Associated Diagnoses Order S chedule Referral to Speech Outpatient Referral Routine Tonsil cancer O rdered: Therapy 12/15/2021 documented as of this encounter Visit Diagnoses Diagnosis Tonsil cancer Malignant neoplasm of tonsil documented in this encounter Care Teams Molding Machine Operator Relationship Specialty Start Date End Date Amelia Gomes APRN PCP - General Family Medicine 10/17/[address] [place] [address] [address] [place] [address] documented as of this encounter
--- OUTSIDE RECORDS SUMMARY | 2022-01-24 16:45 | XMS_ITS | Encounter Summary ---
:1935 Author Organization [facility] [place] [address] Care Team Providers Name Role Phone Amelia Gomes APRN Primary Care Provider [phone] Encounter Details Date Type Department Care Team Description 12/30/2021 Notes Only [facility] OFFICE OF CARE [address] [place] [phone] Social History Tobacco Use Types Packs/Day Years [...] a concern. He has talked with our tank car loader as food is not very tasty for him. Pino did not identify any new needs today. Offered support. Reminded pt of MOVER availability and will continue to follow for support and resources. Brief assessment Supportive Counseling documented in this encounter Plan of Treatment Upcoming Encounters Date Type Specialty Care Team Description 01/26/2022 Infusion Hematology and Oncology 01/26/2022 Office Visit Hematology and Oncology Mirta Sy MD [facility] ONCOLOGY DEPT. [place], [place] [address] (Wo rk) 01/28/2022 Office Visit Radiation Oncology Chilango Michel MD [facility] RADIATION ONCOLO [place], [place] [address] (Wo rk) 01/29/2022 Infusion Hematology and Oncology 02/05/2022 Infusion Hematology and Oncology documented as of this encounter Visit Diagnoses Not on filedocumented in this encounter Care Teams Bingo Cashier Relationship Specialty Start Date End Date Amelia Gomes APRN PCP - General Family Medicine 10/17/20 [address] [place] [address] documented as of this encounter
--- OUTSIDE RECORDS SUMMARY | 2022-01-24 16:45 | XMS_ITS | Encounter Summary ---
:1935 Author Organization [facility] [place] [address] Care Team Providers Name Role Phone Amelia Gomes APRN Primary Care Provider [phone] Encounter Details Date Type Department Care Team Description 12/16/2021 Notes Only [facility] OFFICE OF CARE [address] [place] [phone] Social History Tobacco Use Types Packs/Day Years [...] today to introduce myself and role of social media strategist to assess/address barriers to getting to and [...] assessment Supportive Counseling Plan: Informed pt of [employer] availability and contact information. Will follow to assess/address psychosocial needs. CLAY Moreno, MICROBIOLOGICAL ANALYST, OSW-C District Or District Office Director [facility] documented in this encounter Plan of Treatment Upcoming Encounters Date Type Specialty Care Team Description 01/26/2022 Infusion Hematology and Oncology 01/26/2022 Office Visit Hematology and Oncology Mirta Sy MD [facility] DR ONCOLOGY DEPT. [place], [place] [address] (Wo rk) 01/28/2022 Office Visit Radiation Oncology Chilango Michel MD [facility] RADIATION ONCOLO GY [place], [place] [address] (Wo rk) 01/29/2022 Infusion Hematology and Oncology 02/05/2022 Infusion Hematology and Oncology documented as of this encounter Visit Diagnoses Not on filedocumented in this encounter Care Teams Security Intelligence Analyst Relationship Specialty Start Date End Date Amelia Gomes APRN PCP - General Family Medicine 10/17/20 [address] [address] [place] [address] documented as of this encounter
--- OUTSIDE RECORDS SUMMARY | 2022-01-24 16:45 | XMS_ITS | Encounter Summary ---
:1935 Author Organization [facility] [place] [address] Care Team Providers Name Role Phone Zaid Gomesistal Sarina CARLOS Primary Care Provider [phone] Reason for Referral Diagnostic Test (Routine) - Closed Specialty Diagnoses / Procedures Referred By Contact Refer red To Contact Radiology Diagnoses Tonsil cancer Marito Michel MD [facility] Rad Mri Procedures MRI Soft Tissue Neck LTAC, located [facility] [place] [address] [place] [address] Referral ID Status Reason Start Date Expiration Date Visits V isits Requested Authorized [id number] Closed Specialty 11/04/2021 05/07/2023 1 1 Service Requested Reason for Visit Diagnostic Test (Routine) - Closed Specialty Diagnoses / Procedures Referred By Contact Refer red To Contact Radiology Diagnoses Tonsil cancer Marito Michel MD [facility] Rad Mri Procedures MRI Soft Tissue Neck [facility] [place] [address] [place] [address] Referral ID Status Reason Start Date Expiration Date Visits V isits Requested Authorized [id number] Closed Specialty 11/04/2021 05/07/2023 1 1 Service Requested Encounter Details Date Type Department Care Team Description 11/17/2021 Hospital Encounter MRI at [facility] Marito Michel, Tonsil cancer [facility] [place] [address] RADIATION ONCOLO GY [place], [place] [address] (Wo rk) Social History Tobacco [...] route 0 07/02 (FLONASE) 50 mcg/actuation daily. [place], Suspension simvastatin (ZOCOR) 80 mg 80MG, PO, [...] [facility] DR ONCOLOGY DEPT. [place], [place] [address] (Wo rk) 01/28/2022 Office Visit Radiation Oncology Chilango Michel MD [facility] RADIATION ONCOLO [place], [place] [address] (Wo rk) 01/29/2022 Infusion Hematology [...] who have questions please contact the health direct support professional caregiver that requested your imaging first. ? Electronically signed by: Ricardo claros MD, [facility] ([phone]), at 11/18/2021 11:57 AM Narrative 11/18/2021 11:57 [...] ho have questions please contact the health direct support professional caregiver that requested your imaging first. Electronically signed by: Ricardo claros MD, [facility] ([phone]), at 11/18/2021 11:57 AM Marito Michel MD [facility] MRI ORDERABLES documented in this encounter Visit [...] Routine documented in this encounter Care Teams Blade Boner Relationship Specialty Start Date End Date Amelia Gomes APRN PCP - General Family Medicine 10/17/20 [address] [place] [address] documented as of this encounter
--- OUTSIDE RECORDS SUMMARY | 2022-01-24 16:45 | XMS_ITS | Encounter Summary ---
:1935 Author Organization [facility] [place] [address] Care Team Providers Name Role Phone Amelia Gomes Sarina CARLOS Primary Care Provider [phone] Reason for Referral Speech Therapy (Routine) - Closed Specialty Diagnoses / Procedures Referred By Contact Refer red To Contact Speech Therapy Diagnoses Tonsil cancer Kale Sy MD [facility] Hem Onc Office [facility] Osorio R [address] [place] [address] [place] [phone] Fax: Referral ID Status Reason Start Date Expiration Date Visits V isits Requested Authorized [id number] Closed Evaluate and 12/16/2021 12/16/2022 12 12 Treat Encounter Details Date Type Department Care Team Description 12/15/2021 Orders Only Hematology/Oncology at Kale Gilmore MD Tonsil cancer [address] ONCOLOGY DEPT. [place], [place] [phone] Social History Tobacco Use Types Packs/Day Years [...] Mirta Sy MD [facility] ONCOLOGY DEPT. [place], [place] [address] (Wo rk) 01/28/2022 Office Visit Radiation Oncology Chilango Michel MD [facility] RADIATION ONCOLO [place], [place] [address] (Wo alondra) 01/29/2022 Infusion Hematology [...] who have questions please contact the health home care and home health aides teacher that requested your imaging first. ? Electronically signed by: Kevin Quintanilla [facility] ([phone]), at 12/17/2021 10:42 AM Narrative 12/17/2021 10:42 [...] ho have questions please contact the health home care and home health aides teacher that requested your imaging first. 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
--- OUTSIDE RECORDS SUMMARY | 2022-01-24 16:45 | XMS_ITS | Encounter Summary ---
:1935 Author Organization [facility] [place] [address] Care Team Providers Name Role Phone Amelia Gomes APRN Primary Care Provider [phone] Encounter Details Date Type Department Care Team Description 12/31/2021 Office Visit Radiation Oncology at [facility] Marito MD Tonsil cancer [address] RADIATION ONCOLOGY [place], [place] [phone] Social History Tobacco Use Types Packs/Day Years [...] from the original note were not included. [facility] Medicine Radiation Oncology Radiation Oncology On-treatment [...] at least 8 times daily ?? Alimentation: frit coater following ?? Weight stable, mix of G [...] predominantly whispered speech NA ??? National Cancer [place] (NCI) Comprehensive Cancer Center ??? [place] [employer] Commission on Cancer (ACS López) Accredited Cancer Program ??? [employer] (ACR) Accredited Radiation Oncology Program documented in this encounter Plan of Treatment Upcoming Encounters Date Type Specialty Care Team Description 01/26/2022 Infusion Hematology and Oncology 01/26/2022 Office Visit Hematology and Oncology Mirta Sy MD [facility] ONCOLOGY DEPT. [place], [place] [address] (Wo alondra) 01/28/2022 Office Visit Radiation Oncology Chilango Michel MD [facility] RADIATION [place], [place] [address] (Wo rk) 01/29/2022 Infusion Hematology and Oncology 02/05/2022 Infusion Hematology and Oncology documented as of this encounter Visit Diagnoses Diagnosis Tonsil cancer Malignant neoplasm of tonsil documented in this encounter Care Teams Operations Lead Relationship Specialty Start Date End Date Amelia Gomes APRN PCP - General Family Medicine 10/17/20 [address] [facility] [place] [address] documented as of this encounter
--- OUTSIDE RECORDS SUMMARY | 2022-01-24 16:45 | XMS_ITS | Encounter Summary ---
:1935 Author Organization [facility] [place] [address] Care Team Providers Name Role Phone Amelia Gomes APRN Primary Care Provider [phone] Encounter Details Date Type Department Care Team Description 12/26/2021 Unscheduled Encounter Hematology and Kale Sy, Tonsil cancer Oncology at [facility] [address] [place] ONCOLOGY DEPT. [address] [place] [address] [phone] Social History Tobacco Use Types Packs/Day Years [...] needs based on current weight of 88.3 k1931-2745 kcals (25-30 kcal/kg) 88-114 g protein (1-1.3 [...] [facility] DR ONCOLOGY DEPT. [place], [place] [address] (Wo rk) 01/28/2022 Office Visit Radiation Oncology Chilango Michel MD [facility] RADIATION ONCOLO GY [place], [place] [address] (Wo rk) 01/29/2022 Infusion Hematology and Oncology 02/05/2022 Infusion Hematology and Oncology documented as of this encounter Visit Diagnoses Diagnosis Tonsil cancer Malignant neoplasm of tonsil documented in this encounter Care Teams Aperture Mask Etcher Relationship Specialty Start Date End Date Amelia Gomes APRN PCP - General Family Medicine 10/17/[address] [place] [address] documented as of this encounter
--- OUTSIDE RECORDS SUMMARY | 2022-01-24 16:45 | XMS_ITS | Encounter Summary ---
:1935 Author Organization [facility] [place] [address] Care Team Providers Name Role Phone Amelia Gmoes APRN Primary Care Provider [phone] Encounter Details Date Type Department Care Team Description 12/12/2021 [facility] Tonsil cancer [address] HEMATOLOGY AND [address] ONCOLOGY [phone] [place], [place] [address] (Wo rk) Social History Tobacco [...] body weight) - not clinically significant Hand call manager strength measurements: Left hand: 45.6 average Right hand: 40.4 average Medications: Compazine prn, saw palmetto, krill oil, simvastatin, allopurinol Labs on 12/08: WBC 5.91, H/H 14.0/42.8, platelets 216, electrolytes wnl, calcium wnl, LFTs wnl, alb 3.4, TBili 1.2. Enteral: G-tube placed by IR in [place] on 11/13/21. He is flushing with water BID but has not started feedings yet Nutrition Problem: Involuntary weight loss related to tonsil cancer as evidenced by 9# loss in the past 3 months (4.4% body weight) - not clinically significant Improved--3-4# re-gain in past 2 weeks Estimated needs based on 89.4 k9400-3247 kcals (25-30 kcal/kg) 89-134 g protein (1-1.5 g/kg) 1 ml/kcal fluids Recommendations: * Encouraged patient to continue with good PO intake. Provided samples of vanilla and strawberry Ensure. Discussed having one per day. [place] Breakfast Essentials, homemade milkshake and/or smoothieare alternative [...] MD [facility] DR ONCOLOGY DEPT. [place], [place] [address] (Tomy cantu) 01/28/2022 Office Visit Radiation Oncology Chilango Michel MD [facility] RADIATION ONCSHANTEL GY [place], [place] [address] (Tomy cantu) 01/29/2022 Infusion Hematology and Oncology 02/05/2022 Infusion Hematology and Oncology documented as of this encounter Visit Diagnoses Diagnosis Tonsil cancer Malignant neoplasm of tonsil documented in this encounter Care Teams Prehemmer Relationship Specialty Start Date End Date Amelia Gomes APRN PCP - General Family Medicine 10/17/20 [address] [facility] [address] [place] [address] documented as of this encounter
--- OUTSIDE RECORDS SUMMARY | 2022-01-24 16:45 | XMS_ITS | Encounter Summary ---
:1935 Author Organization [facility] [place] [address] Care Team Providers Name Role Phone MateoZaid sipmsonAmeliamat Branch APRN Primary Care Provider [phone] Reason for Visit Reason Comments IV Medication Hydration + antiemetic Treatment/Therapy Plan Authorization (Routine) - Authorized Specialty Diagnoses / Procedures Referred By Contact Refer red To Contact Hematology and Oncology Diagnoses Tonsil cancer History of kidney stones Gilbert's syndrome Kale Sy MD [facility] Hem Onc Infusion Procedures , [facility] [address] [place], [place] ONCOLOGY DEPT. [address] [place] [address] Referral ID Status Reason Start Date Expiration Date Visits V isits Requested Authorized [id number] Authorized 12/08/2021 02/25/2022 99 99 Encounter Details Date Type Department Care Team Description 12/19/2021 Infusion Hematology Oncology at [facility] lbert's syndrome; [facility] Tonsil cancer; [address] [place] [address] History of kidney stones [place], [place] [phone] Social History Tobacco Use [...] pace. OBJECTIVE LAB DATA: Done 12/15/21 at [facility] for treatment today. IV ACCESS: Implanted [...] [facility] DR ONCOLOGY DEPT. [place], [place] [address] (Tomy cantu) 01/28/2022 Office Visit Radiation Oncology Chilango Michel MD [facility] RAD[place]ATION [place], [place] [address] (Tomy cantu) 01/29/2022 Infusion Hematology [...] hours documented in this encounter Care Teams Senior Devops Engineer Relationship Specialty Start Date End Date Amelia Gomes APRN PCP - General Family Medicine 10/17/[address] [place] [address] [address] [place] [address] documented as of this encounter
--- OUTSIDE RECORDS SUMMARY | 2022-01-24 16:46 | XMS_ITS | Encounter Summary ---
:1935 Author Organization [facility] [place] [address] Care Team Providers Name Role Phone Geovanni Irwin MD Primary Care Provider Reason for Visit Reason Comments Follow-up Focused Exam Encounter Details Date Type Department Care Team Description 09/08/2016 [facility] TMD keratosis [address] [place] [address] [facility]-DER[facility] [place], [place] [address] Social History Tobacco Use Types [...] the presence of Dr. Rodríguez: ANNY GODFREY, ELECTRIC METER INSTALLER HELPER and Ines Noble, Clinical Scribe I performed the above scribed service and agree with the accuracy of the documentation in this encounter. Meghana Rodríguez MD Automotive Drivability Technician of Dermatology, Department of Dental Scheduling CoordinatorAutomotive Drivability Technicianculinary internship (Dermatopathology) [facility] documented in this encounter Plan of Treatment Upcoming Encounters Date Type Specialty Care Team Description 01/26/2022 Infusion Hematology and Oncology 01/26/2022 Office Visit Hematology and Oncology Mirta Sy MD [facility] DR ONCOLOGY DEPT. [place], [place] [address] (Wo rk) 01/28/2022 Office Visit Radiation Oncology Chilango Michel MD [facility] RADIATION ONCOLO [place], [place] [address] (Wo rk) 01/29/2022 Infusion Hematology and Oncology 02/05/2022 Infusion Hematology and Oncology documented as of this encounter Visit Diagnoses Diagnosis History of actinic keratosis Personal history of diseases of skin and subcutaneous tissue documented in this encounter Care Teams Cow Tender Relationship Specialty Start Date End Date Geovanni Irwin MD PCP - General 12/09/10 10/16/[address] [place] [address] documented as of this encounter
--- OUTSIDE RECORDS SUMMARY | 2022-01-24 16:46 | XMS_ITS | Encounter Summary ---
:1935 Author Organization [facility] [place] [address] Care Team Providers Name Role Phone MateoZaid simpsonAmeliamat Branch APRN Primary Care Provider [phone] Encounter Details Date Type Department Care Team Description 11/04/2021 Telephone Hematology and Oncol simón at [facility] [place] [address] Social History Tobacco Use Types Packs/Day [...] - 11/04/2021 2:50 PM EDT [facility] Coordinator spoke with Pino and his Angelina. We [...] have requested a $50 gas card [facility] Please contact me with any questions or if you need assistance. I have enclosed several forms. Please fill out and return. Thanks, Madeleine Arevalo documented in this encounter Plan of Treatment Upcoming Encounters Date Type Specialty Care Team Description 01/26/2022 Infusion Hematology and Oncology 01/26/2022 Office Visit Hematology and Oncology Mirta Sy MD [facility] ONCOLOGY DEPT. [place], [place] [address] (Wo rk) 01/28/2022 Office Visit Radiation Oncology Chilango Michel MD [facility] ER RADIATION ONCSHANTEL [place], [place] [address] (Wo rk) 01/29/2022 Infusion Hematology and Oncology 02/05/2022 Infusion Hematology and Oncology documented as of this encounter Visit Diagnoses Not on filedocumented in this encounter Care Teams Piano Bench Assembler Relationship Specialty Start Date End Date Amelia Gomes APRN PCP - General Family Medicine 10/17/[address] [place] [address] documented as of this encounter
--- OUTSIDE RECORDS SUMMARY | 2022-01-24 16:46 | XMS_ITS | Encounter Summary ---
:1935 Author Organization [facility] [place] [address] Care Team Providers Name Role Phone MateoHayde simpsonleonarda Branch APRN Primary Care Provider [phone] Encounter Details Date Type Department Care Team Description 11/11/2021 Surgery Main Operating Room Jarett Cedillo, LARYNGOSCOPY, [facility] MICROSCOPE, WITH [facility] (WRU 3.55) [facility] DR Campbell [place] [address] [place] [address] [phone] (Wo rk) Social History Tobacco Use Types [...] have any questions or concerns: - Call [phone] during normal offices hours (8 AM - 5 PM during the week) - Call [phone] and ask for the ENT resident web applications architect after hours (nights and weekends) documented in [...] route 0 07/02 (FLONASE) 50 mcg/actuation daily. Era, Suspension simvastatin (ZOCOR) 80 mg 80MG, PO, [...] Julian RN - 10/17/2021 3:56 PM EDT [facility] Radiation Oncology [address] [place] [id number] Date: To whom it may concern: Pino [...] Alas MD - 11/11/2021 11:46 AM EDT [facility] Operative Note Patient Name: Pino Wong : [id number] MR#: [id number] Case Date: 11/11/2021 Surgeon: Surgeon(s) and Role: [...] and draped in the standard fashion for behavioral health director. The oral cavity was suctioned and an [...] Visit Hematology and Oncology Mirta Sy MD [facility] DR ONCOLOGY DEPT. 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 Location: [facility]; SD41; A FAN Final Report KENN The signing pathologist has (i) examined the relevant preparation(s) for the [facility] specimen(s) and (ii) rendered or confirmed the diagnosis(es) . HOSPITAL LABORATORY . ? No n-Glove Pairer Final DIAGNOSIS Suspicious for Malignancy Electronically signed by: ?Jocelyn MUNOZ, Gal Ac Verified: ??11/14/2021 14:26 ??Pathologist Performed at: ??-[facility] Dept. [place] Pathology, [place], [place] DISCUSSION Lymph node, left neck level [...] MD PATHOLOGY/CYTOLOGY ORDERABLE S Performing Organization Address City/[facility]/[place] [address] Cytopathology Non-Gynecological (11/11/2021 12:22 PM EDT) Specimen Anatomical Collection Method Collection Time Receive d Time (Source) Location / / Volume Laterality AP Specimen 11/11/2021 12:22 11/11/2021 PM EDT 12:22 PM EDT Narrative [facility] OR - 11/11/2021 12:22 PM EDT Specimen requisition ordered. ??Separate Pathology report to follow Jarett Cedillo MD PATHOLOGY/CYTOLOGY ORDERABLE S Performing Organization Address City/[facility]/[place] [address] Specimen to Pathology (11/11/2021 12:10 PM EDT) Specimen Anatomical Collection Method Collection Time Receive d Time (Source) Location / / Volume Laterality AP Specimen 11/11/2021 12:10 11/11/2021 PM EDT 12:10 PM EDT Narrative [facility] OR - 11/11/2021 12:10 PM EDT Specimen requisition ordered. ??Separate Pathology report to follow Jarett Cedillo MD PATHOLOGY/CYTOLOGY ORDERABLE S Performing Organization Address City/[facility]/[place] [address] Specimen to Pathology (11/11/2021 11:53 AM EDT) Specimen Anatomical Collection Method Collection Time Receive d Time (Source) Location / / Volume Laterality AP Specimen 11/11/2021 11:53 11/11/2021 AM EDT 11:53 AM EDT Narrative [facility] OR - 11/11/2021 11:53 AM EDT Specimen requisition ordered. ??Separate Pathology report to follow Jarett Cedillo MD PATHOLOGY/CYTOLOGY ORDERABLE S Performing Organization Address City/[facility]/[place] [address] Specimen to Pathology (11/11/2021 11:50 AM EDT) Specimen Anatomical Collection Method Collection Time Receive d Time (Source) Location / / Volume Laterality AP Specimen 11/11/2021 11:50 11/11/2021 AM EDT 11:50 AM EDT Narrative [facility] - 11/11/2021 11:50 AM EDT Specimen requisition ordered. ??Separate Pathology report to follow Jarett Cedillo MD PATHOLOGY/CYTOLOGY ORDERABLE S Performing Organization Address City/State/[place] [address] Surgical Pathology Report (11/11/2021 11:49 AM EDT) Component Value Ref Test Analysis Performed At [facility] gist Range Method Time Signature Surgical [id number] ? Location: [facility]; [facility]; A [facility] Report The signing pathologist has (i) examined the relevant preparation(s) for the [facility] specimen(s) and (ii) rendered or confirmed the [...] MD Verified: ??11/19/2021 11:01 ??Pathologist Performed at: ??-[facility] Dept. of Pathology, [place], [place] DISCUSSION Step levels were examined. SPECIMEN(S) [...] Organization Address City/State/[place] [address] documented in this encounter [...] Routine documented in this encounter Care Teams Salvage Cutter Relationship Specialty Start Date End Date Amelia Gomes APRN PCP - General Family Medicine 10/17/[address] [place] [address] documented as of this encounter
--- OUTSIDE RECORDS SUMMARY | 2022-01-24 16:46 | XMS_ITS | Encounter Summary ---
:1935 Author Organization [facility] [place] [address] Care Team Providers Name Role Phone Geovanni Irwin MD Primary Care Provider Reason for Visit Reason Comments Skin Check Encounter Details Date Type Department Care Team Description 12/08/2017 Office Visit Dermatology at Meghana [place] (actinic keratosis); Eris Kirby MD [place] (seborrheic keratosis); [address] [facility] Multiple benign nevi; [place] [address] [address] Dermatofibroma; [phone]-DERMATOLGY [place], [place] [address] Social History Tobacco Use Types [...] x 1, right preauricular area x1, right evangelical x1, left superior helix x 1: scaly [...] documentation in this encounter. Meghana Rodríguez MD Manager Skilled of Dermatology, Department of Surgery [facility] documented in this encounter Plan of Treatment Upcoming Encounters Date Type Specialty Care Team Description 01/26/2022 Infusion Hematology and Oncology 01/26/2022 Office Visit Hematology and Oncology Mirta Sy MD [facility] DR ONCOLOGY DEPT. [place], [place] [address] (Wo rk) 01/28/2022 Office Visit Radiation Oncology Chilango Michel MD [facility] RADIATION ONCOLO [place], [place] [address] (Wo rk) 01/29/2022 Infusion Hematology and Oncology 02/05/2022 Infusion Hematology and Oncology documented as of this encounter Visit Diagnoses Diagnosis [place] (actinic keratosis) Actinic keratosis [place] (seborrheic keratosis) Other seborrheic keratosis Multiple benign nevi Benign neoplasm of skin, site unspecifie d Dermatofibroma Benign neoplasm of skin, site unspecifie d Purpura Other nonthrombocytopenic purpuras documented in this encounter Care Teams Speeder Machine Operator Relationship Specialty Start Date End Date Geovanni Irwin MD PCP - General 12/09/10 10/16/[address] [place] [address] documented as of this encounter
--- OUTSIDE RECORDS SUMMARY | 2022-01-24 16:46 | XMS_ITS | Encounter Summary ---
:1935 Author Organization [facility] [place] [address] Care Team Providers Name Role Phone Mireya Amelia Branch APRN Primary Care Provider [phone] Encounter Details Date Type Department Care Team Description 10/08/2021 Telephone Otolaryngology at [facility] [place], [place] [address] Social History Tobacco Use Types Packs/Day [...] Oncology Mirta Sy MD [facility] DR ONCOLOGY DEPT. [place], [place] [address] (Wo rk) 01/28/2022 Office Visit Radiation Oncology Chilango Michel MD [facility] RADIATION ONCOLO [place], [place] [address] (Wo rk) 01/29/2022 Infusion Hematology and Oncology 02/05/2022 Infusion Hematology and Oncology documented as of this encounter Visit Diagnoses Not on filedocumented in this encounter Care Teams Laundrette Owner Relationship Specialty Start Date End Date Amelia Gomes APRN PCP - General Family Medicine 10/17/[address] [place] [address] documented as of this encounter
--- OUTSIDE RECORDS SUMMARY | 2022-01-24 16:46 | XMS_ITS | Encounter Summary ---
:1935 Author Organization [facility] [place] [address] Care Team Providers Name Role Phone MireyaZaidAmeliamat Branch APRN Primary Care Provider [phone] Reason for Visit Consultation (Routine) - Closed Specialty Diagnoses / Procedures Referred By Contact Refer red To Contact Radiation Oncology Diagnoses Tonsil cancer Jarett Cedillo Stj Rad Onc Treatment [address] [place] [address] Osorio R [place], [place] OTOLARYNGOLOGY DEPT. [address] [place] [address] Referral ID Status Reason Start Date Expiration Date Visits V isits Requested Authorized [id number] Closed Consult, 10/09/2021 10/09/2022 1 1 Test & Treat Encounter Details Date Type Department Care Team Description 10/15/2021 Office Visit Radiation Oncology at Marito Michel MD Tonsil cancer [facility] [address] [place] [address] RADIATION ONCOLOGY [place], [place] [id number] [phone] Social History Tobacco Use Types Packs/Day Years [...] upper crown which Dr. Gerda Gonzalez St[facility], [facility] is comfortable with. Referrals/Interventions: ARMY MANAGER per routine RADIATION SPECIFIC TEACHING: NCI Radiation [...] [facility] regarding his HN cancer ONCOLOGIC HISTORY [...] Denies Social Issues Travels 15 minutes to [facility] Tobacco / EtOH Never smoker Total [...] mouth. ??? fluticasone propionate (FLONASE) 50 mcg/actuation [place], Suspension by Each Nare route daily. ??? [...] planning. He may be a candidate for [facility], and was handed the consent to peruse. he has not been discussed at [facility] tumor board and we will do so. We discussed the rationale and logistics (including simulation, planning, and treatment) of definitive chemoradiotherapy. We discussed the risks of therapy, including but not limited to short term sequelae (fatigue, skin erythema, mucositis, dysphagia, ageusia, xerostomia, weight loss) and fpc sequelae (tissue fibrosis, lymphedema, fpc dysphagia potentially requiring a permanent feeding tube, [...] Care Prophylactic feeding tube: TBD Referral to Patient Assistant / EMERGENCY SERVICES DISPATCHER Dental Issues: dental clearance required OTHER ISSUES None documented in this encounter Plan of Treatment Upcoming Encounters Date Type Specialty Care Team Description 01/26/2022 Infusion Hematology and Oncology 01/26/2022 Office Visit Hematology and Oncology Mirta Sy MD [facility] ONCOLOGY DEPT. [place], [place] [address] ([facility]) 01/28/2022 Office Visit Radiation Oncology Chilango Michel MD [facility] RADIATION [place], [place] [address] (Wo rk) 01/29/2022 Infusion Hematology and Oncology 02/05/2022 Infusion Hematology and Oncology documented as of this encounter Visit Diagnoses Diagnosis Tonsil cancer Malignant neoplasm of tonsil documented in this encounter Care Teams Detention Attendant Relationship Specialty Start Date End Date Amelia Gomes APRN PCP - General Family Medicine 10/17/20 [address] [facility] [address] [place] [address] documented as of this encounter
--- OUTSIDE RECORDS SUMMARY | 2022-01-24 16:46 | XMS_ITS | Encounter Summary ---
:1935 Author Organization [facility] [place] [address] Care Team Providers Name Role Phone Amelia Gomes Sarina CARLOS Primary Care Provider [phone] Encounter Details Date Type Department Care Team Description 11/05/2021 Laboratory Appointment Lab [address]L [place] [address] Social History Tobacco Use Types Packs/Day [...] [facility] DR ONCOLOGY DEPT. [place], [place] [address] (Wo rk) 01/28/2022 Office Visit Radiation Oncology Chilango Michel MD [facility] RADIATION ONCOLO [place], [place] [address] (Wo rk) 01/29/2022 Infusion Hematology and Oncology 02/05/2022 Infusion Hematology and Oncology documented as of this encounter Visit Diagnoses Not on filedocumented in this encounter Care Teams Photographer Assistant Relationship Specialty Start Date End Date Amelia Gomes APRN PCP - General Family Medicine 10/17/[address] [place] [address] documented as of this encounter
--- OUTSIDE RECORDS SUMMARY | 2022-01-24 16:46 | XMS_ITS | Encounter Summary ---
:1935 Author Organization [facility] [place] [address] Care Team Providers Name Role Phone Amelia Gomes Sarina CARLOS Primary Care Provider [phone] Reason for Visit Diagnostic Test (Routine) - Closed Specialty Diagnoses / Procedures Referred By Contact Refer red To Contact Radiology Diagnoses Tonsil cancer Steve Kellogg PA [facility] Rad Nuclear Med Procedures NM PET CT Standard Plus Head and Neck [facility] [place] [address] [place] [address] Referral ID Status Reason Start Date Expiration Date Visits V isits Requested Authorized [id number] Closed Specialty 09/17/2021 03/19/2023 2 2 Service Requested Encounter Details Date Type Department Care Team Description 10/09/2021 Hospital Encounter Nuclear Medicine at Allan Cedillo ph, Mariam Morales MD [facility] [place] [address] OTOLARYNGOLOGY DEPT. [phone] [place], [place] [address] (Wo rk) Social History Tobacco [...] route 0 07/02 (FLONASE) 50 daily. mcg/actuation [place], Suspension simvastatin (ZOCOR) 80 80MG, PO, Every [...] Hematology and Oncology Mirta Sy MD [facility] ONCOLOGY [place] [id number] (Wo rk) 01/28/2022 Office Visit Radiation Oncology Chilango Michel MD [facility] ER RADIATION ONCSHANTEL [place], [place] [address] (Wo rk) 01/29/2022 Infusion Hematology [...] who have questions please contact the health care technician that requested your imaging first. ? Electronically signed by: Jeffery Herman MD, [facility] ([phone]), at 10/30/2021 9:26 AM --------ORIGINAL REPORT -------- EXAMINATION: NM PET CT STANDARD PLUS HEA D AND NECK CLINICAL HISTORY: Head/neck cancer, stag ing New right tonsil cancer. ??Please assess for extent of disease, metastases. 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 ? Electronically signed by: Jeffery Herman MD, [facility] ([phone]), at 10/10/2021 10:57 AM Impressions 10/10/2021 10:57 [...] who have questions please contact the health care technician that requested your imaging first. ? Electronically signed by: Jeffery Herman MD, [facility] ([phone]), at 10/10/2021 10:57 AM Narrative 10/10/2021 10:57 AM EDT EXAMINATION: NM PET CT STANDARD PLUS HEAD AND NECK CLINICAL HISTORY: Head/neck cancer, stag ing New right tonsil cancer. ??Please assess for extent of disease, metastases. 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 Electronically signed by: Jeffery Herman MD, [facility] ([phone]), at 10/10/2021 10:57 AM Jarett Cedillo MD IMG PET ORDERABLES documented in this encounter Visit Diagnoses Not on filedocumented in this encounter Care Teams Cad Technician Relationship Specialty Start Date End Date Amelia Gomes APRN PCP - General Family Medicine 10/17/[address] [place] [address] documented as of this encounter
--- OUTSIDE RECORDS SUMMARY | 2022-01-24 16:46 | XMS_ITS | Encounter Summary ---
:1935 Author Organization [facility] [place] [address] Care Team Providers Name Role Phone Geovanni Irwin MD Primary Care Provider Reason for Visit Reason Comments Skin Check Encounter Details Date Type Department Care Team Description 08/09/2018 Office Visit Dermatology at [facility] Meghana Rodríguez [place] (actinic keratosis); Eris Kirby MD [place] (seborrheic keratosis); [address] [facility] Multiple benign nevi; [place] [address] [address] Dermatofibroma; [phone] [facility] Skin tag [address]-DERMATOLGY [place], [place] [address] Social History Tobacco Use Types [...] weeks. Please contact the Dermatology clinic at [phone] if the lesion has not fully resolved [...] documentation in this encounter. Meghana Rodríguez MD Hot Dog Vendor of Dermatology, Department of Surgery [facility] documented in this encounter Plan of Treatment Upcoming Encounters Date Type Specialty Care Team Description 01/26/2022 Infusion Hematology and Oncology 01/26/2022 Office Visit Hematology and Oncology Mirta Sy MD [facility] DR ONCOLOGY DEPT. [place], [place] [address] (Wo rk) 01/28/2022 Office Visit Radiation Oncology Chilango Michel MD [facility] RADIATION ONCOLO [place], [place] [address] (Wo rk) 01/29/2022 Infusion Hematology [...] skin documented in this encounter Care Teams Master Baker Relationship Specialty Start Date End Date Geovanni Irwin MD PCP - General 12/09/10 10/16/[address] [place] [address] documented as of this encounter
--- OUTSIDE RECORDS SUMMARY | 2022-01-24 16:46 | XMS_ITS | Encounter Summary ---
:1935 Author Organization [facility] [place] [address] Care Team Providers Name Role Phone Geovanni Irwin MD Primary Care Provider Reason for Visit Reason Comments Skin Check Encounter Details Date Type Department Care Team Description 08/27/2015 [facility] uncertain behavior of skin; Eris Kirby MD [place] (actinic keratosis); [address] [facility] SK (seborrheic keratosis); [place] [address] [address] [address] History of Tick bite; [phone] [facility] Dermatofibroma; RD-DERMATOLGY Dermal nevus [place], [place] [address] Social History Tobacco Use Types [...] or concerns, please call the office at [phone]. If it is after 5PM, or a holiday or weekend, please call [phone] and ask for the Service Technician on-call. Actinic Keratoses You have been diagnosed [...] weeks. Please contact the Dermatology clinic at [phone] if the lesion has not fully resolved after 6 weeks. If you are calling after hours, please call the mainline at [phone] and ask for the market manager wildlife control agent. Caring for Your Skin Sun Protection Exposure [...] dirty areas. Avoid harsh soaps such as Arabic Spring, Ivory, or Dial as these can be drying. ?? Immediately after bathing, apply a bland, preferably fragrance-free moisturizer to your skin. Ointments work better than creams, which work better than lotions. Look for the following brands: Vaseline 100% petroleum jelly, Vanicream, Neutrogena, CeraVe, Cetaphil, Aveeno, Lubriderm, or Eucerin. ?? For itchy areas, you can apply hydrocortisone 1% cream (lmol-kbv-flrsqxj product) for 1-2 weeks. Do not use [...] with no bulls eye F. Right buttock: [place] fleshy papule G. Left lateral calf: firm [...] documentation in this encounter. Meghana Rodríguez MD Records Assistant of Dermatology, Department of Slitting Machine Operator HelperRecords Assistantcommercial lines account executive (Dermatopathology) [facility] documented in this encounter Plan of Treatment Upcoming Encounters Date Type Specialty Care Team Description 01/26/2022 Infusion Hematology and Oncology 01/26/2022 Office Visit Hematology and Oncology Mirta Sy MD [facility] ONCOLOGY DEPT. [place], [place] [address] (Wo rk) 01/28/2022 Office Visit Radiation Oncology Chilango Michel MD [facility] RADIATION ONCOLO [place], [place] [address] (Wo rk) 01/29/2022 Infusion Hematology [...] Surgical Pathology Report (08/27/2015 10:34 AM EDT) [facility] Method Time Signature Surgical [id number] ?Location: [facility] Report The signing pathologist has (i) examined [...] MD PATHOLOGY/CYTOLOGY ORDERABLE S Performing Organization Address City/[facility]/[place] [address] Specimen to Pathology (NON-OR) (08/27/2015 10:34 AM EDT) Specimen Anatomical Collection Method Collection Time Receive d Time (Source) Location / / Volume Laterality AP Specimen 08/27/2015 10:34 08/27/2015 AM EDT 12:46 PM EDT Narrative [facility] - 08/27/2015 12:47 PM EDT Specimen requisition ordered. ??Separate Pathology report to follow Resulting Agency Comment Spec In Lab Meghana Rodríguez MD PATHOLOGY/CYTOLOGY ORDERABLE S Performing Organization Address City/[facility]/ZIP [facility] [place] [address] documented in this encounter [...] d documented in this encounter Care Teams Special Needs Bus Driver Relationship Specialty Start Date End Date Geovanni Irwin MD PCP - General 12/09/10 10/16/[address] [place] [address] documented as of this encounter
--- OUTSIDE RECORDS SUMMARY | 2022-01-24 16:46 | XMS_ITS | Encounter Summary ---
:1935 Author Organization [facility] [place] [address] Care Team Providers Name Role Phone Amelia Gomes Sarina CARLOS Primary Care Provider [phone] Encounter Details Date Type Department Care Team Description 11/11/2021 Interpretation Only Radiology at [facility] Ce nter None [address] [facility] [place] [address] Social History Tobacco Use Types Packs/Day [...] Oncology Mirta Sy MD [facility] ONCOLOGY DEPT. [place], [place] [address] (Wo rk) 01/28/2022 Office Visit Radiation Oncology Chilango Michel MD [facility] RADIATION ONCOLO [place], [place] [address] (Wo rk) 01/29/2022 Infusion Hematology [...] on filedocumented in this encounter Care Teams Vice President Of Compliance Relationship Specialty Start Date End Date Amelia Gomes APRN PCP - General Family Medicine 10/17/[address] [place] [address] documented as of this encounter
--- OUTSIDE RECORDS SUMMARY | 2022-01-24 16:46 | XMS_ITS | Encounter Summary ---
:1935 Author Organization [facility] [place] [address] Care Team Providers Name Role Phone MateoZaid simpsonAmeliamat Branch APRN Primary Care Provider [phone] Encounter Details Date Type Department Care Team Description 09/23/2021 [place] [address] Social History Tobacco Use Types Packs/Day [...] route 0 07/02 (FLONASE) 50 daily. mcg/actuation [place], Suspension simvastatin (ZOCOR) 80 80MG, PO, Every [...] Sy MD [facility] ONCOLOGY DEPT. [place], [place] [address] ( alondra) 01/28/2022 Office Visit Radiation Oncology Chilango Michel MD [facility] RADIATION ONCLONE [place], [place] [address] (Tomy cantu) 01/29/2022 Infusion Hematology and Oncology 02/05/2022 Infusion Hematology and Oncology documented as of this encounter Procedures Procedure Name Priority Date/Time Associated Diagnosis Comme [facility] SURGICAL PATHOLOGY Routine 09/23/2021 10:17 AM [place] for this REPORT EDT procedure are i n the results section. documented in this encounter Results Surgical Pathology Report (09/23/2021 10:17 AM EDT) Component Value Ref Test Analysis Performed At [facility] Range Method Time Signature Surgical [id number] ? Location: [facility] Pathology KENN Report The signing pathologist has (i) examined the relevant preparation(s) for the MEMORIAL specimen(s) and (ii) rendered or confirmed the diagnosis(es) . HOSPITAL LABORATORY . ?Surgic al Pathology DIAGNOSIS CONSULTATION CASE Outside slide(s) labeled [id number], collection date 2. Tonsil, right, biopsies: Non-keratinizing squamous cell carcinoma, p16 positive (see Discussion) Electronically signed by: ?Rafael MUNOZ, Ana Kamara Verified: ??10/03/2021 13:08 ??Pathologist Performed at: ??-[facility] Dept. of Pathology, [place], [place] DISCUSSION Per report, p16 immunostain shows diffuse positivity. SPECIMEN(S) SUBMITTED CONSULTATION CASE A - 1 slide(s) labeled [id number], collection date 08/28/2021. [id number] Report to: [facility] Surgical Pathology Department ACC, [facility], 2nd Floor [address] [place], [place] ??[address] CLINICAL INFORMATION CREDIT NEGOTIATOR SPECIMEN PROCESSING [facility] ([facility]) pathology slide(s) are reviewed. ??Refer to Diagnosis and Specimen Submitted for specific case infor jonelle. For the full text of the [facility] report(s) please refer t o Non- Documentation Pathology in the electronic health record (eDH). Specimen (Source) Anatomical Collection Method Collection Time Re ceived Time Location / / Volume Laterality 09/23/2021 10:17 AM EDT Jarett Cedillo MD PATHOLOGY/CYTOLOGY ORDERABLE S Performing Organization Address City/State/ZIP Code [place] [address] documented in this encounter Visit Diagnoses Not on filedocumented in this encounter Care Teams Client Professional Relationship Specialty Start Date End Date Amelia Gomes APRN PCP - General Family Medicine 10/17/[address] [place] [address] documented as of this encounter
--- OUTSIDE RECORDS SUMMARY | 2022-01-24 16:46 | XMS_ITS | Encounter Summary ---
:1935 Author Organization [facility] [place] [address] Care Team Providers Name Role Phone MateoZadi simpsonAmeliamat Branch APRN Primary Care Provider Encounter Details Date Type Department Care Team Description 09/23/2021 External Results Medical Records Provider, [place] [address] Social History Tobacco Use Types Packs/Day [...] Visit Hematology and Oncology Mirta Sy MD [facility] DR ONCOLOGY DEPT. [place], [place] [address] (Wo rk) 01/28/2022 Office Visit Radiation Oncology Chilango Michel MD [facility] RADIATION ONCOLO [place], [place] [address] (Wo rk) 01/29/2022 Infusion Hematology [...] on filedocumented in this encounter Care Teams Strategic Planning Manager Relationship Specialty Start Date End Date Amelia Gomes APRN PCP - General Family Medicine 10/17/[address] [place] [address] documented as of this encounter
--- OUTSIDE RECORDS SUMMARY | 2022-01-24 16:46 | XMS_ITS | Encounter Summary ---
:1935 Author Organization [facility] [place] [address] Care Team Providers Name Role Phone Amelia Gomes Sarina CARLOS Primary Care Provider [phone] Reason for Referral Consultation (Routine) - Closed Specialty Diagnoses / Procedures Referred By Contact Refer red To Contact Otolaryngology Diagnoses Squamous cell carcinoma of right tonsil Orlando Pena MD [place], [place] [address] [place], [place] [address] [facility] OTOLARYNGOLOGY DEPT. [place], [place] [address] Phone: Fax: Referral ID Status Reason Start Date Expiration Date Visits V isits Requested Authorized [id number] Closed Consult, 09/16/2021 09/16/2022 1 1 Test & Treat Encounter Details Date Type Department Care Team Description 09/16/2021 Transcribe Orders eDH Incoming Orlando Pena MD Squamous cell Referrals [address] [place] [address] DR carcinoma of right [phone] [place], [place] tonsil [address] Social History Tobacco Use [...] [facility] DR ONCOLOGY DEPT. [place], [place] [address] (Wo alondra) 01/28/2022 Office Visit Radiation Oncology Chilango Michel MD [facility] RADIATION ONCOLO [place], [place] [address] (Wo rk) 01/29/2022 Infusion Hematology and Oncology 02/05/2022 Infusion Hematology and Oncology Scheduled Referrals Name Type Priority Associated Diagnoses Order S chedule Referral to ENT Outpatient Referral Routine Squamous cell Orde red: 09/16/2021 carcinoma of right tonsil documented as of this encounter Visit Diagnoses Diagnosis Squamous cell carcinoma of right tonsil Malignant neoplasm of tonsil documented in this encounter Care Teams 3D Animator Relationship Specialty Start Date End Date Amelia Gomes APRN PCP - General Family Medicine 10/17/20 [address] [place] [address] documented as of this encounter
--- OUTSIDE RECORDS SUMMARY | 2022-01-24 16:46 | XMS_ITS | Encounter Summary ---
:1935 Author Organization [facility] [place] [address] Care Team Providers Name Role Phone MateoZaid simpsonAmeliamat Branch APRN Primary Care Provider [phone] Encounter Details Date Type Department Care Team Description 10/16/2021 Telephone Otolaryngology [place] [address] Social History Tobacco Use Types Packs/Day [...] Mirta Sy MD [facility] DR ONCOLOGY DEPT. [place], [place] [address] (Wo rk) 01/28/2022 Office Visit Radiation Oncology Chilango Michel MD [facility] RADIATION ONCOLO [place], [place] [address] (Wo rk) 01/29/2022 Infusion Hematology and Oncology 02/05/2022 Infusion Hematology and Oncology documented as of this encounter Visit Diagnoses Not on filedocumented in this encounter Care Teams Residential Mental Health Worker Relationship Specialty Start Date End Date Amelia Gomes APRN PCP - General Family Medicine 10/17/[address] [place] [address] documented as of this encounter
--- OUTSIDE RECORDS SUMMARY | 2022-01-24 16:46 | XMS_ITS | Encounter Summary ---
:1935 Author Organization [place] [address] Care Team Providers Name Role Phone MateoAmelia simpson Sarina CARLOS Primary Care Provider [phone] Reason for Referral Diagnostic Test (Routine) - Closed Specialty Diagnoses / Procedures Referred By Contact Refer red To Contact Radiology Diagnoses Tonsil cancer Kale Sy MD [facility] Interventionl Rad Procedures IR Biopsy Lymph Node (Head/Neck) IR FNA Thyroid Nodule [facility] [place] [address] [place] [address] Referral ID Status Reason Start Date Expiration Date Visits V isits Requested Authorized [id number] Closed Specialty 10/30/2021 05/02/2023 1 1 Service Requested Reason for Visit Diagnostic Test (Routine) - Closed Specialty Diagnoses / Procedures Referred By Contact Refer red To Contact Radiology Diagnoses Tonsil cancer Kale Sy MD [facility] Interventionl Rad Procedures IR Biopsy Lymph Node (Head/Neck) IR FNA Thyroid Nodule [facility] DR Sorto [facility] [place] [address] [place] [address] Referral ID Status Reason Start Date Expiration Date Visits V isits Requested Authorized [id number] Closed Specialty 10/30/2021 05/02/2023 1 1 Service Requested Encounter Details Date Type Department Care Team Description 11/05/2021 Hospital Encounter Radiology at [facility] Kale Sy MD Tonsil cancer [facility] [place] [address] ONCOLOGY DEPT. [phone] [place], [place] [address] (Wo rk) Social History Tobacco [...] route 0 07/02 (FLONASE) 50 mcg/actuation daily. [place], Suspension simvastatin (ZOCOR) 80 mg 80MG, PO, [...] Questions Answers Where will study be performed? [facility] Radiology [120] Does this patient have [...] mouth. ??? fluticasone propionate (FLONASE) 50 mcg/actuation [place], Suspension by Each Nare route daily. ??? [...] day of the procedure Yandy Urban, NARINDER, OFFICE TECHNOLOGY PROFESSOR 11/05/2021 7:23 AM documented in this encounter Plan of Treatment Upcoming Encounters Date Type Specialty Care Team Description 01/26/2022 Infusion Hematology and Oncology 01/26/2022 Office Visit Hematology and Oncology Mirta Sy MD [facility] DR ONCOLOGY DEPT. [place], [place] [address] (Wo rk) 01/28/2022 Office Visit Radiation Oncology Chilango Michel MD [facility] RADIATION ONCSHANTEL [place], [place] [address] (Wo rk) 01/29/2022 Infusion Hematology and Oncology 02/05/2022 Infusion Hematology and Oncology documented as of this encounter Procedures Procedure Name Priority Date/Time Associated Comments Diagnosis IR BIOPSY LYMPH NODE Routine 11/05/2021 11:08 Tonsil cancer Re sults for this (HEAD/NECK) AM EDT procedure are i n the results section. NON-CD MIXER FINAL REPORT Routine 11/05/2021 10:50 Res ults [...] have questions please contact the health career development counselor that requested your imaging first. ? Narrative [...] have questions please contact the health career development counselor that requested your imaging first. Kale Sy MD IMG IR ORDERABLES Non-Diesel Fitter Mechanic Final Report (11/05/2021 10:50 AM EDT) Component Value Ref Test Analysis Performed At Patholo gist Range Method Time Signature Non-Diesel Fitter Mechanic Final [id number] ? Location: [facility] The signing pathologist has (i) examined the relevant preparation(s) for the MEMORIAL specimen(s) and (ii) rendered or confirmed the diagnosis(es) . HOSPITAL LABORATORY . ? No n-Diesel Fitter Mechanic Final DIAGNOSIS Atypical Electronically signed by: ?Berna MUNOZ, Ry Kamara Verified: ??11/08/2021 14:44 ??Cytopathologist Performed at: ??-[facility] Dept. of Pathology, [place], [place] DISCUSSION Lymph node: left level 2 [...] Address City/State/ZIP Code [place] [address] Cytopathology Non-Gynecological (11/05/2021 9:49 AM EDT) Specimen Anatomical Collection Method Collection Time Receive d Time (Source) Location / / Volume Laterality AP Specimen 11/05/2021 9:49 AM 9:49 EDT AM EDT Narrative [facility] LAB[facility] - 11/05/2021 9:49 AM EDT Specimen requisition ordered. ??Separate Pathology report to follow Kale Sy MD PATHOLOGY/CYTOLOGY ORDERABLE S Performing Organization Address City/State/[facility] [place] [address] documented in this encounter Visit Diagnoses Diagnosis Tonsil cancer Malignant neoplasm of tonsil documented in this encounter Care Teams Airbrush Artist Relationship Specialty Start Date End Date Amelia Gomes APRN PCP - General Family Medicine 10/17/20 [address] [place] [address] documented as of this encounter
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
--- OUTSIDE RECORDS SUMMARY | 2022-01-24 16:46 | XMS_ITS | Encounter Summary ---
:1935 Author Organization [facility] Address [address] [address] Care Team Providers Name Role Phone Geovanni Irwin MD Primary Care Provider Reason for Visit Reason Comments Skin Check Encounter Details Date Type Department Care Team Description 08/04[facility]2016 [facility] Eris Kirby MD [place] (actinic keratosis); [address] [facility] History of basal cell cancer ; [place] [address] Multiple benign nevi; [phone] [facility] [address]-DERMATOLGY [place], [place] [address] Social History Tobacco Use Types [...] of this encounter Patient Instructions Patient InstructionsInes Noble - 08/04/2016 3:30 PM EDT Actinic Keratoses [...] weeks. Please contact the Dermatology clinic at [phone] if the lesion has not fully resolved after 6 weeks. If you are calling after hours, please call the mainline at [phone] and ask for the car mechanic data processing systems consultant. documented in this encounter Progress Notes Meghana [...] the presence of Dr. Rodríguez: Lizette Hodges, GLOBAL TRANSPORTATION MANAGER and Ines Noble, Clinical Scribe I performed the above scribed service and agree with the accuracy of the documentation in this encounter. Meghana Rodríguez MD Mac Developer of Dermatology, Department of Coat AgentMac Developerconfiguration consultant (Dermatopathology) [facility] documented in this encounter Plan of Treatment Upcoming Encounters Date Type Specialty Care Team Description 01/26/2022 Infusion Hematology and Oncology 01/26/2022 Office Visit Hematology and Oncology Mirta Sy MD [facility] DR ONCOLOGY DEPT. [place], [place] [address] (Wo rk) 01/28/2022 Office Visit Radiation Oncology Chilango Michel MD [facility] RADIATION ONCOLO [place], [place] [address] (Wo rk) 01/29/2022 Infusion Hematology [...] keratosis documented in this encounter Care Teams Manager Aviation Relationship Specialty Start Date End Date Geovanni Irwin MD PCP - General 12/09/10 10/16/[address] [place] [address] documented as of this encounter
--- OUTSIDE RECORDS SUMMARY | 2022-01-24 16:46 | XMS_ITS | Encounter Summary ---
:1935 Author Organization [facility] [place] [address] Care Team Providers Name Role Phone Amelia Gomes Sarina CARLOS Primary Care Provider [phone] Reason for Visit Reason Comments Skin Cancer Examination Encounter Details Date Type Department Care Team Description 10/17[facility]; Eris Kirby MD Seborrheic keratoses; [address] [facility] Epidermal inclusion cyst; [place] [address] [address] History of basal cell carcinoma (BCC) [phone] [facility] [address]-DERMATOLGY [place], [place] [address] Social History Tobacco Use Types [...] forearm. Last FSE: 08/15/2019 Last visit at [facility] Derm: 08/15/2019 Last visit with this provider: [...] the trunk and extremities, including the left latter-day, right flank, right forearm, right elbow, and right posterior thigh. - Discussed benign nature of lesions and provided reassurance. No treatment necessary at this time. D. History of BCC - Well-healed scars per skin history. - No evidence of recurrence; will continue to monitor. Other: - N/A RTC: 1 year for FSE []Note routed to legal administrative secretary [x]Recall placed in scheduling system []Appointment scheduled before exiting Argenis Zaidi has performed the documentation for this encounter in the presence of and actingas a scribe for RIVKA RODRÍGUEZ MD. I performed the above scribed service and agree with the accuracy of the documentation in this encounter. Reviewed and signed by: RIVKA RODRÍGUEZ MD Dermatology [facility] documented in this encounter Plan of Treatment Upcoming Encounters Date Type Specialty Care Team Description 01/26/2022 Infusion Hematology and Oncology 01/26/2022 Office Visit Hematology and Oncology Mirta Sy MD [facility] DR ONCOLOGY DEPT. [place], [place] [address] (Wo rk) 01/28/2022 Office Visit Radiation Oncology Chilango Michel MD [facility] RADIATION ONCOLO [place], [place] [address] (Wo rk) 01/29/2022 Infusion Hematology and Oncology 02/05/2022 Infusion Hematology and Oncology documented as of this encounter Visit Diagnoses Diagnosis Actinic keratoses Actinic keratosis Seborrheic keratoses Epidermal inclusion cyst Sebaceous cyst History of basal cell carcinoma (BCC) documented in this encounter Care Teams Layout Mechanic Relationship Specialty Start Date End Date Amelia Gomes APRN PCP - General Family Medicine 10/17/[address] [place] [address] documented as of this encounter
--- OUTSIDE RECORDS SUMMARY | 2022-01-24 16:46 | XMS_ITS | Encounter Summary ---
:1935 [place] [address] Care Team Providers Name Role Phone Amelia Gomes TERRANCE Primary Care Provider [phone] Encounter Details Date Type Department Care Team Description 11/11/2021 Anesthesia Event Main Operating Room Anne Marie Jacob MD [facility] [place] [address] [facility] Jefe Valle [facility] [address] [place] [address] Anesthesia Record Procedure Summary Procedure Name [...] of arm), REBECCA Dow Cathleen M, left; xpmx-kel-xrctta RN catheter system; 20 gauge, 1 in length; Harika Morris RN; distraction, intradermal injection, tolerated well, appears comfortable; 0; LDA not present upon assessment; 12/23/21; 1252 ETT Mask Ventilation: Adjunct 11/11/21 1128 by 11/11 1236 by (2); ETT Type: Cuffed, Oral, Jefe Valle C RNA Jefe Valle CRNA TABLE WORKER; ETT Size: 6 mm; Indirect:Video (FOB); Notes: [...] Procedure Summary Date: 11/11/21 Room / Location: [facility] OR [facility] MAIN OR Anesthesia Start: 1115 Anesthesia [...] Anesthesia Providers: Anesthesiologist: Anne Marie Matute MD TEST BORE HELPER: Jefe Valle CRNA Vitals Value Taken Time [...] 15 oz) Last edited 11/11/21 0929 by CHEMICAL RECOVERY OPERATOR Airway Assessment: Mallampati: II TM distance: >3 [...] risks discussed with patient. Plan discussed with TEST BORE HELPER. Anesthesia Screening documented in this encounter Plan of Treatment Upcoming Encounters Date Type Specialty Care Team Description 01/26/2022 Infusion Hematology and Oncology 01/26/2022 Office Visit Hematology and Oncology Mirta Sy MD [facility] DR ONCOLOGY DEPT. [place] [address] (Wo rk) 01/28/2022 Office Visit Radiation Oncology Chilango Michel MD [facility] RAD[facility]ATION [facility] [place] [address] (Wo rk) 01/29/2022 Infusion Hematology and [...] Routine documented in this encounter Care Teams Supervisor Record Press Relationship Specialty Start Date End Date Amelia Gomes APRN PCP - General Family Medicine 10/17/[address] [facility] [place] [address] documented as of this encounter
--- OUTSIDE RECORDS SUMMARY | 2022-01-24 16:46 | XMS_ITS | Encounter Summary ---
:1935 Author Organization [facility] [place] [address] Care Team Providers Name Role Phone MateoZaid simpsonAmeliamat Branch APRN Primary Care Provider [phone] Reason for Referral Diagnostic Test (Routine) - Closed Specialty Diagnoses / Procedures Referred By Contact Refer red To Contact Radiology Diagnoses Tonsil cancer Steve Kellogg PA [facility] Rad Ct Scan Procedures CT Neck Soft Tissue w Contrast (Generic) [facility] [place] [address] [place] [address] Referral ID Status Reason Start Date Expiration Date Visits V isits Requested Authorized [id number] Closed Specialty 09/17/2021 03/19/2023 1 1 Service Requested Reason for Visit Diagnostic Test (Routine) - Closed Specialty Diagnoses / Procedures Referred By Contact Refer red To Contact Radiology Diagnoses Tonsil cancer Steve Kellogg PA [facility] Rad Ct Scan Procedures CT Neck Soft Tissue w Contrast (Generic) [facility] Dr Sorto [facility] [place] [address] [place] [address] Referral ID Status Reason Start Date Expiration Date Visits V isits Requested Authorized [id number] Closed Specialty 09/17/2021 03/19/2023 1 1 Service Requested Encounter Details Date Type Department Care Team Description 10/09/[address] Scan at [facility] Nguyen Jarett Tonsil cancer [facility] [place] [address] OTOLARYNGOLOGY DEPT. [place], [place] [address] (Wo rk) Social History Tobacco [...] route 0 07/02 (FLONASE) 50 daily. mcg/actuation [place], Suspension simvastatin (ZOCOR) 80 80MG, PO, Every [...] MD [facility] DR ONCOLOGY DEPT. [place], [place] [address] (Wo rk) 01/28/2022 Office Visit Radiation Oncology Chilango Michel MD [facility] RADIATION ONCOLO GY [place], [place] [address] (Wo rk) 01/29/2022 Infusion Hematology [...] who have questions please contact the health acute care occupational therapist that requested your imaging first. ? Electronically signed by: Alexandre Mitchell MD, [facility] ([phone]), at 10/10/2021 9:26 AM Narrative 10/10/2021 9:26 [...] ho have questions please contact the health acute care occupational therapist that requested your imaging first. Electronically signed by: Alexandre Mitchell MD, [facility] ([phone]), at 10/10/2021 9:26 AM Jarett Cedillo MD [...] Routine documented in this encounter Care Teams First Breaker Feeder Relationship Specialty Start Date End Date Amelia Gomes APRN PCP - General Family Medicine 10/17/[address] [place] [address] [address] [place] [address] documented as of this encounter
--- OUTSIDE RECORDS SUMMARY | 2022-01-24 16:46 | XMS_ITS | Encounter Summary ---
:1935 Author Organization [place] [address] Care Team Providers Name Role Phone Geovanni Irwin MD Primary Care Provider Reason for Visit Reason Comments Skin Check Focused Exam Encounter Details Date Type Department Care Team Description 12/08/2016 Office Visit Dermatology at [facility] Meghana Rodríguez MD (actinic Road TMD keratosis) [address] [place] [address] [facility] [place], [place] [address] Social History Tobacco Use Types [...] he would like checked before leaving for [place] for the winter. MEDS: Current Outpatient Prescriptions [...] documentation in this encounter. Meghana Rodríguez MD Charter Coach Driver of Dermatology, Department of Shotblast OperatorCharter Coach Driverprofessional athlete (Dermatopathology) [facility] documented in this encounter Plan of Treatment Upcoming Encounters Date Type Specialty Care Team Description 01/26/2022 Infusion Hematology and Oncology 01/26/2022 Office Visit Hematology and Oncology Mirta Sy MD [facility] DR ONCOLOGY DEPT. [place], [place] [address] (Wo rk) 01/28/2022 Office Visit Radiation Oncology Chilango Michel MD [facility] RADIATION ONCOLO [place], [place] [address] (Wo rk) 01/29/2022 Infusion Hematology and Oncology 02/05/2022 Infusion Hematology and Oncology documented as of this encounter Visit Diagnoses Diagnosis [place] (actinic keratosis) Actinic keratosis documented in this encounter Care Teams Certified Master Locksmith Relationship Specialty Start Date End Date Geovanni Irwin MD PCP - General 12/09/10 10/16/[address] [place] [address] documented as of this encounter
--- OUTSIDE RECORDS SUMMARY | 2022-01-24 16:46 | XMS_ITS | Encounter Summary ---
:1935 Author Organization [facility] [place] [address] Care Team Providers Name Role Phone Geovanni Irwin MD Primary Care Provider Encounter Details Date Type Department Care Team Description 12/19/2018 [facility] Milia [address] [facility] [place] [address] [facility]-DER[facility] [phone] [place], [place] [address] (Wo rk) Social History Tobacco [...] Yemi Velasquez MD PhD Resident in Dermatology [facility] Patient seen and evaluated with staff patient safety officer: Tejas Reynolds MD Section of Dermatology [facility] Tejas Reynolds MD - 12/19/2018 1:00 PM [...] MD [facility] DR ONCOLOGY DEPT. [place], [place] [address] (Wo rk) 01/28/2022 Office Visit Radiation Oncology Chilango Michel MD [facility] RADIATION ONCOLO GY [place], [place] [address] (Wo rk) 01/29/2022 Infusion Hematology and Oncology 02/05/2022 Infusion Hematology and Oncology documented as of this encounter Visit Diagnoses Diagnosis Milia Sebaceous cyst documented in this encounter Care Teams Drug Counselor Relationship Specialty Start Date End Date Geovanni Irwin MD PCP - General 12/09/10 10/16/[address] [place] [address] documented as of this encounter
--- OUTSIDE RECORDS SUMMARY | 2022-01-24 16:46 | XMS_ITS | Encounter Summary ---
:1935 Author Organization [facility] [place] [address] Care Team Providers Name Role Phone Geovanni Irwin MD Primary Care Provider Reason for Visit Reason Comments Procedure Encounter Details Date Type Department Care Team Description 09/10/2015 Office Visit Dermatology at [facility] Meghana Rodríguez [place] (actinic keratosis); Eris Kirby MD Basal cell carcinoma [address] [place] [address] [facility]-DERMATOLGY [place], [place] [address] Social History Tobacco Use Types [...] or concerns, please call the office at [phone]. If it is after 5PM, or a holiday or weekend, please call [phone] and ask for the Manufacturing Team Leader on-call. documented in this encounter Progress Notes [...] cm healing biopsy site B. Right Mid [place]: Heme crust at previously treated site of [...] documentation in this encounter. Meghana Rodríguez MD Butt Trimmer of Dermatology, Department of PackerButt Trimmergolf teacher (Dermatopathology) [facility] documented in this encounter Plan of Treatment Upcoming Encounters Date Type Specialty Care Team Description 01/26/2022 Infusion Hematology and Oncology 01/26/2022 Office Visit Hematology and Oncology Mirta Sy MD [facility] DR ONCOLOGY DEPT. [place], [place] [address] (Wo rk) 01/28/2022 Office Visit Radiation Oncology Chilango Michel MD [facility] RADIATION ONCOLO [place], [place] [address] (Wo rk) 01/29/2022 Infusion Hematology and Oncology 02/05/2022 Infusion Hematology and Oncology documented as of this encounter Visit Diagnoses Diagnosis [place] (actinic keratosis) Actinic keratosis Basal cell carcinoma Basal cell carcinoma of skin, site unspe cified documented in this encounter Care Teams Digital Printer Operator Relationship Specialty Start Date End Date Geovanni Irwin MD PCP - General 12/09/10 10/16/[address] [place] [address] documented as of this encounter
--- OUTSIDE RECORDS SUMMARY | 2022-01-24 16:46 | XMS_ITS | Encounter Summary ---
:1935 Author Organization [facility] [place] [address] Care Team Providers Name Role Phone Amelia Gomes Sarina CARLOS Primary Care Provider [phone] Reason for Referral Diagnostic Test (Routine) - Closed Specialty Diagnoses / Procedures Referred By Contact Refer red To Contact Radiology Diagnoses Tonsil cancer Steve Kellogg PA [facility] Rad Nuclear Med Procedures NM PET CT Standard Plus Head and Neck [facility] [place] [address] [place] [address] Referral ID Status Reason Start Date Expiration Date Visits V isits Requested Authorized [id number] Closed Specialty 09/17/2021 03/19/2023 2 2 Service Requested Diagnostic Test (Routine) - Closed Specialty Diagnoses / Procedures Referred By Contact Refer red To Contact Radiology Diagnoses Tonsil cancer Steve Kellogg PA [facility] Rad Ct Scan Procedures CT Neck Soft Tissue w Contrast (Generic) [facility] Dr Sorto [facility] [place] [address] [place] [address] Referral ID Status Reason Start Date Expiration Date Visits V isits Requested Authorized [id number] Closed Specialty 09/17/2021 03/19/2023 1 1 Service Requested Encounter Details Date Type Department Care Team Description 09/17/2021 Orders Only Otolaryngology at Steve Triplett, Tonsil cancer [facility] [place] [address] [facility] [phone] Otolaryngology [place], [place] [address] (Wo rk) Social History Tobacco [...] MD [facility] DR ONCOLOGY DEPT. [place], [place] [address] (Wo rk) 01/28/2022 Office Visit Radiation Oncology Chilango Michel MD [facility] RADIATION ONCOLO [place], [place] [address] (Wo rk) 01/29/2022 Infusion Hematology [...] who have questions please contact the health occasional caregiver that requested your imaging first. ? Electronically signed by: Alexandre Mitchell MD, [facility] ([phone]), at 10/10/2021 9:26 AM Narrative 10/10/2021 9:26 [...] ho have questions please contact the health occasional caregiver that requested your imaging first. Electronically signed by: Alexandre Mitchell MD, [facility] ([phone]), at 10/10/2021 9:26 AM Jarett Cedillo MD [...] who have questions please contact the health occasional caregiver that requested your imaging first. ? Electronically signed by: Jeffery Herman MD, [facility] ([phone]), at 10/30/2021 9:26 AM --------ORIGINAL REPORT -------- EXAMINATION: NM PET CT STANDARD PLUS HEA D AND NECK CLINICAL HISTORY: Head/neck cancer, stag ing New right tonsil cancer. ??Please assess for extent of disease, metastases. 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 ? Electronically signed by: Jeffery Herman MD, [facility] ([phone]), at 10/10/2021 10:57 AM Impressions 10/10/2021 10:57 [...] who have questions please contact the health occasional caregiver that requested your imaging first. ? Electronically signed by: Jeffery Herman MD, [facility] ([phone]), at 10/10/2021 10:57 AM Narrative 10/10/2021 10:57 AM EDT EXAMINATION: NM PET CT STANDARD PLUS HEAD AND NECK CLINICAL HISTORY: Head/neck cancer, stag ing New right tonsil cancer. ??Please assess for extent of disease, metastases. 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 Electronically signed by: Jeffery Herman MD, [facility] ([phone]), at 10/10/2021 10:57 AM Jarett Cedillo MD IMG PET ORDERABLES documented in this encounter Visit Diagnoses Diagnosis Tonsil cancer Malignant neoplasm of tonsil Tonsil cancer Malignant neoplasm of tonsil Tonsil cancer Malignant neoplasm of tonsil documented in this encounter Care Teams Parking Enforcement Officer Relationship Specialty Start Date End Date Amelia Gomes APRN PCP - General Family Medicine 10/17/[address] [place] [address] documented as of this encounter
--- OUTSIDE RECORDS SUMMARY | 2022-01-24 16:46 | XMS_ITS | Encounter Summary ---
:1935 Author Organization [facility] [place] [address] Care Team Providers Name Role Phone MateoZaid simpsonAmeliamat Branch APRN Primary Care Provider [phone] Reason for Referral Consultation (Emergency) - Closed Specialty Diagnoses / Procedures Referred By Contact Refer red To Contact Maxillofacial Surgery Diagnoses Extraction of tooth needed Patient is going to have radiation treatment due to Tonsil cancer soon. Eval and extract tooth #4. Radiopacity beyond the mandible, well defined on Right side. Gerda Gonzalez DDS [facility] [address] [facility] [address] [place] [phone] Fax: [phone] Referral ID Status Reason Start Date Expiration Date Visits V isits Requested Authorized [id number] Closed Consult, 10/27/2021 10/27/2022 1 1 Test & Treat Encounter Details Date Type Department Care Team Description 10/27/2021 Transcribe Orders eDH Incoming Gerda Gonzalez, Extrac tion of tooth Referrals DDS needed [phone] [facility] [address] [place], [place] [id number] Social History Tobacco Use Types Packs/Day Years [...] Visit Hematology and Oncology Mirta Sy MD [facility] MEDICAL [facility] ONCOLOGY DEPT. [place], [place] [address] (Wo rk) 01/28/2022 Office Visit Radiation Oncology Chilango Michel MD [facility] MEDICAL [facility] RADIATION [place], [place] [address] (Wo rk) 01/29/2022 Infusion Hematology and Oncology 02/05/2022 Infusion Hematology and Oncology Scheduled Referrals Name Type Priority Associated Order Schedule Diagnoses Referral to Outpatient Referral STAT Extraction of tooth O rdered: Maxillofacial Surgery needed 2021 documented as of this encounter Visit Diagnoses Diagnosis Extraction of tooth needed documented in this encounter Care Teams Travel Coordinator Relationship Specialty Start Date End Date Amelia Gomes APRN PCP - General Family Medicine 10/17/[address] [place] [address] documented as of this encounter
--- OUTSIDE RECORDS SUMMARY | 2022-01-24 16:46 | XMS_ITS | Encounter Summary ---
:1935 Author Organization [facility] [place] [address] Care Team Providers Name Role Phone MateoZaid simpsonAmeliamat Branch APRN Primary Care Provider [phone] Encounter Details Date Type Department Care Team Description 10/09/2021 Laboratory Appointment Lab 3L [facility] [place] [address] Social History Tobacco Use Types Packs/Day [...] MD [facility] ONCOLOGY DEPT. [place], [place] [address] (Wo rk) 01/28/2022 Office Visit Radiation Oncology Chilango Michel MD [facility] RADIATION ONCOLO GY [place], [place] [address] (Wo rk) 01/29/2022 Infusion Hematology [...] 0.87 0.80 - [place] 1.50 mg/dL [facility] LABOR[facility] Estimated GFR 85 >=60 [place] mL/min/1.7 [facility] 3 [facility] LABORATORY [...] Organization Address City/State/[place] [address] documented in this encounter Visit Diagnoses Diagnosis Tonsil cancer Malignant neoplasm of tonsil documented in this encounter Care Teams Transportation Dispatch Manager Relationship Specialty Start Date End Date Amelia Gomes APRN PCP - General Family Medicine 10/17/[address] [place] [address] documented as of this encounter
--- OUTSIDE RECORDS SUMMARY | 2022-01-24 16:46 | XMS_ITS | Encounter Summary ---
:1935 Author Organization [facility] [place] [address] Care Team Providers Name Role Phone Amelia Gomes Sarina CARLOS Primary Care Provider [phone] Reason for Referral Consultation (Routine) - Closed Specialty Diagnoses / Procedures Referred By Contact Refer red To Contact Hematology and Oncology Diagnoses Tonsil cancer Jarett Cedillo, [facility] Hem Onc [address] [place], [place] OTOLARYNGOLOGY DEPT. [address] [place] [address] Referral ID Status Reason Start Date Expiration Date Visits V isits Requested Authorized [id number] Closed Consult, 10/09/2021 10/09/2022 1 1 Test & Treat Consultation (Routine) - Closed Specialty Diagnoses / Procedures Referred By Contact Refer red To Contact Radiation Oncology Diagnoses Tonsil cancer Jarett Cedillo [facility] Rad Onc Treatment [address] [place] [address] D [place], [place] OTOLARYNGOLOGY [place]PT. [address] [place] [address] Referral ID Status Reason Start Date Expiration Date Visits V isits Requested Authorized [id number] Closed Consult, 10/09/2021 10/09/2022 1 1 Test & Treat Reason for Visit Consultation (Routine) - Closed Specialty Diagnoses / Procedures Referred By Contact Refer red To Contact Otolaryngology Diagnoses Squamous cell carcinoma of right tonsil Orlando Pena MD Paydarfar, Joseph A, [address] [place] [address] [address] [place] [place], [place] [address] [facility] OTOLARYNGOLOGY DEPT. [place], [place] [address] Phone: Fax: Referral ID Status Reason Start Date Expiration Date Visits V isits Requested Authorized [id number] Closed Consult, 09/16/2021 09/16/2022 1 1 Test & Treat Encounter Details Date Type Department Care Team Description 10/09/2021 Office Visit Otolaryngology at [facility] Jarett Cedillo, Tonsil cancer [facility] [place] [address] [facility] [phone] OTOLARYNGOLOGY Osorio EPT. [place], [place] [address] (Wo rk) Social History Tobacco [...] Cedillo MD - 10/09/2021 2:20 PM EDT [facility] OTOLARYNGOLOGY HEAD AND NECK TUMOR CLINIC NEW [...] Pena and has office biopsy, reviewed at [facility]: DIAGNOSIS CONSULTATION CASE Outside slide(s) labeled [id number], collection date 08/28/2021. Tonsil, right, biopsies: Non-keratinizing squamous cell carcinoma, p16 positive (see Discussion) The patient is a Non-smoker. Minimal alcohol. 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 PROBLEM LIST Patient Active Problem List Diagnosis [...] mouth. ??? fluticasone propionate (FLONASE) 50 mcg/actuation [place], Suspension by Each Nare route daily. ??? [...] the TelePack Unit and uploaded to the [employer] | 3pay Evaluation Engineer. Findings Nasal cavity normal Nasopharynx normal Oropharynx [...] [facility] DR ONCOLOGY DEPT. [place], [place] 0[address] (Tomy cantu) 01/28/2022 Office Visit Radiation Oncology Chilango Michel MD [facility] RADIATION ONCSHANTEL [place], [place] 0[address] (Tomy cantu) 01/29/2022 Infusion Hematology [...] tonsil documented in this encounter Care Teams Agriculture Specialist Relationship Specialty Start Date End Date Amelia Gomes, DIRECTOR OF ARCHIVES PCP - General Family Medicine 10/17/[address] [place] [address] [address] [place] [address] documented as of this encounter"
--- OUTSIDE RECORDS SUMMARY | 2022-01-24 16:46 | XMS_ITS | Encounter Summary ---
:1935 Author Organization [facility] [place] [address] Care Team Providers Name Role Phone Amelia Gomes Sarina CARLOS Primary Care Provider [phone] Reason for Referral Diagnostic Test (Routine) - Closed Specialty Diagnoses / Procedures Referred By Contact Refer red To Contact Radiology Diagnoses Tonsil cancer Kale Sy MD [facility] Interventionl Rad Procedures IR Biopsy Lymph Node (Head/Neck) IR FNA Thyroid Nodule [facility] [place] [address] [place] [address] Referral ID Status Reason Start Date Expiration Date Visits V isits Requested Authorized [id number] Closed Specialty 10/30/2021 05/02/2023 1 1 Service Requested iagnostic Test (Routine) - Closed Specialty Diagnoses / Procedures Referred By Contact Refer red To Contact Radiology Diagnoses Tonsil cancer Kale Sy MD [facility] Interventionl Rad Procedures IR G-Tube Placement [facility] DR Sorto [facility] [place] [address] [place] [address] Referral ID Status Reason Start Date Expiration Date Visits V isits Requested Authorized [id number] Closed Specialty 10/30/2021 05/02/2023 1 1 Service Requested iagnostic Test (Routine) - Closed Specialty Diagnoses / Procedures Referred By Contact Refer red To Contact Radiology Diagnoses Tonsil cancer Kale Sy MD [facility] Interventionl Rad Procedures IR Mediport Placement [facility] [place] [address] [place] [address] Referral ID Status Reason Start Date Expiration Date Visits V isits Requested Authorized [id number] Closed Specialty 10/30/2021 05/02/2023 1 1 Service Requested Reason for Visit Reason Comments Establish Care Consultation (Routine) - Closed Specialty Diagnoses / Procedures Referred By Contact Refer red To Contact Hematology and Oncology Diagnoses Tonsil cancer Jarett Cedillo, [facility] Hem Onc [address] [facility] [address] [place] OTOLARYNGOLOGY DEPT. [address] [place] [address] Referral ID Status Reason Start Date Expiration Date Visits V isits Requested Authorized [id number] Closed Consult, 10/09/2021 10/09/2022 1 1 Test & Treat Encounter Details Date Type Department Care Team Description 10/30/2021 Office Visit Hematology and Kale Sy MD [facility] [place] [address] Tonsil cancer; Oncology at [facility] Janice Barth APRN [facility] [id number] [place] of [place] [address] Social History Tobacco Use Types Packs/Day Years [...] reveals that he is , lives in [facility] where he was born and raised. 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 He is retired, but keeps quite busy with house chores and maintenance of his [place]. 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 Physical exam: He is accompanied by his [...] staging. Chemoradiation will be delivered at our [facility] facility. Kale Sy MD, FACP clinical nursing professor Hematology/Oncology Section [place] [phone] Voice recognition software used for this note; please excuse carbon brusher assembler errors. I personally reviewed past medical, surgical, [...] mouth. ??? fluticasone propionate (FLONASE) 50 mcg/actuation [place], Suspension by Each Nare route daily. ??? [...] Review of systems is negative for other MYSQL DATABASE DEVELOPER, bone, pulmonary, cardiac, GI, , extremity, neurologic, endocrine, skin, constitutional, emotional, or functional problems. Vitals Flowsheet Row Office Visit from 10/30/2021 in Hematology and Oncology at [facility] Weight 91.2 kg (201 lb) Height 177.8 [...] MD [facility] DR ONCOLOGY DEPT. [place], [place] [address] (Wo alondra) 01/28/2022 Office Visit Radiation Oncology Chilango Michel MD [facility] RADIATION ONCOLO [place], [place] 0[address] (Tomy cantu) 01/29/2022 Infusion Hematology [...] 7-10 days, order place d and IR central scheduler notified. - Mediport ready for immediate [...] to procedure. Impression: 1) Implantation of power-injectable, [employer] 8 Fr Dignity Mini Profile single-lumen port [...] 7-10 days, order place d and IR central scheduler notified. - Mediport ready for immediate [...] who have questions please contact the health resident care coordinator that requested your imaging first. ? Narrative [...] ho have questions please contact the health resident care coordinator that requested your imaging first. Kale Sy MD IMG IR ORDERABLES documented in this encounter Visit Diagnoses Diagnosis Tonsil cancer Malignant neoplasm of tonsil History of kidney stones Personal history of urinary calculi Tonsil cancer Malignant neoplasm of tonsil Pre-op testing Preoperative examination, unspecified Tonsil cancer Malignant neoplasm of tonsil documented in this encounter Care Teams Toe Stapler Relationship Specialty Start Date End Date Amelia Gomes APRN PCP - General Family Medicine 10/17/20 [address] [place] [address] documented as of this encounter
--- OUTSIDE RECORDS SUMMARY | 2022-01-24 16:46 | XMS_ITS | Encounter Summary ---
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 [facility] Interventionl Rad Procedures IR Suture Release [facility] [place] [address] [place] [address] Referral ID Status Reason Start Date Expiration Date Visits V isits Requested Authorized [id number] Closed Specialty 11/13/2021 05/16/2023 1 1 Service Requested iagnostic Test (Routine) - Closed Specialty Diagnoses / Procedures Referred By Contact Refer red To Contact Radiology Diagnoses Tonsil cancer Kale Sy MD [facility] Interventionl Rad Procedures IR G-Tube Placement [facility] [place] [address] [place] [address] Referral ID Status Reason Start Date Expiration Date Visits V isits Requested Authorized [id number] Closed Specialty 10/30/2021 05/02/2023 1 1 Service Requested iagnostic Test (Routine) - Closed Specialty Diagnoses / Procedures Referred By Contact Refer red To Contact Radiology Diagnoses Tonsil cancer Kale Sy MD [facility] Interventionl Rad [facility] [place] [address] [place] [address] Referral ID Status Reason Start Date Expiration Date Visits V isits Requested Authorized [id number] Closed Specialty 10/30/2021 05/02/2023 1 1 Service Requested Reason for Visit Diagnostic Test (Routine) - Closed Specialty Diagnoses / Procedures Referred By Contact Refer red To Contact Radiology Diagnoses Tonsil cancer Kale Sy MD [facility] Interventionl Rad Procedures IR [facility] [place] [address] [place] [address] Referral ID Status Reason Start Date Expiration Date Visits V isits Requested Authorized [id number] Closed Specialty 10/30/2021 05/02/2023 1 1 Service Requested Encounter Details Date Type Department Care Team Description 11/13/2021 Hospital Encounter Rad[facility] at [facility] Kale Sy, Pre-op testing; [facility] Tonsil cancer [facility] [address] ONCOLOGY DEPT. [phone] [place], [place] [address] Social History Tobacco Use Types [...] provided with an ID card stating the customs officer and type of port you have. Please carry this with you in a safe place. Bandage: There is a sterile dressing over the port site consisting of small gauze with a clear dressing (Tegaderm or [id number] ). This dressing should be left in place for 48 hours. If the clear dressing becomes loose you should place tape over the edges to secure it in place. Note: If you have steri-strips beneath your dressing, simply allow them to fall off. Do not peel them off. There may be Snowslip-chen (skin glue) also, allow this to flake [...] is during regular office hours, please call [phone]. If it is after regular office hours, oron weekends or holidays, please call [phone] and ask to speak to the Field Trainer on callfor Interventional Radiology. XXX You have [...] or its attachments. INTERVENTIONAL RADIOLOGY PHONE NUMBERS [phone] If you have a NON Low profile feeding tube, call with any questions or concerns. During regular office hours call: [phone]. If it is after regular office hours, weekends or holidays, pleasecall [phone] and ask to speak to the Field Trainer destination coordinator for Interventional Radiology. If you have a low profile ???DENNIS-KNAPP?? feeding tube, please call Ely Goodwin RN for any issues: [phone]. Revised 01/12/19 AttachmentsThe following attachments cannot be sent through Care Everywhere. Feeding Tube: General Info (Welsh)Tube Feeding: Home (Welsh)documented in this encounter Medications at Time of [...] route 0 07/02 (FLONASE) 50 mcg/actuation daily. [place], Suspension simvastatin (ZOCOR) 80 mg 80MG, PO, [...] Male Date of : 1935 Telephone Number: [phone] (home) Telephone Information: PCP Amelia Gomes APRN [phone] Date/Time of call: November 14, 2021/8:48 AM [...] of : 1935 AGE: 86 y.o. Address: [address] [place] [address] Phone: [phone] (home) Mobile: Telephone Information: Referring Provider: Kale Sy REASON FOR VISIT: Mediport and G-tube placement Order Questions Answers Where will study be performed? [facility] Radiology [120] Prefered insertion location: Left side Is the patient on anticoagulant / antiplatelet therapy ? No Reason for exam and clinical history: need for chemo access Question Answer Where will study be performed? [facility] Radiology Is the patient on anticoagulant / [...] mouth. ??? fluticasone propionate (FLONASE) 50 mcg/actuation [place], Suspension by Each Nare route daily. ??? [...] Oncology Mirta Sy MD [facility] ONCOLOGY DEPT. [place], [place] [address] (Wo alondra) 01/28/2022 Office Visit Radiation Oncology Chilango Michel MD [facility] RADIATION [place], [place] [address]375 (Wo rk) 01/29/2022 Infusion Hematology [...] to procedure. Impression: 1) Implantation of power-injectable, [employer] 8 Fr Dignity Mini Profile single-lumen port [...] 7-10 days, order place d and IR home health scheduler notified. - Mediport ready for immediate [...] 7-10 days, order place d and IR home health scheduler notified. - Mediport ready for immediate [...] Time Signature WBC 6.5 4.0 - 9.5 [facility] x10(3)/[facility] LABORATORY RBC 4.84 4.[address] [facility] 5.54 [facility] x10(6)/[facility] LABORATORY Hemoglobin 15.1 13.7 - [facility] 16.[facility] g/dL [facility] LABORATORY Hematocrit 45.7 40.5 - [facility] 48.5 % [facility] LABORATORY MCV 94.4 (H) 82.9 - [facility] 93.1 [facility] LABORATORY MCH 31.2 27.5 - [facility] [place] 32.1 pg [facility] LABORATORY MCHC 33.0 32.0 - [place] 35.7 g/dL [facility] LABORATORY Platelets 236 145 - 357 [facility] x10(3)/[facility] LABORATORY RDWSD 47.2 (H) 36.0 - [facility] 45.0 [facility] RDWCV 13.5 11.4 - [facility] 13.8 % [facility] LABORATORY MPV 8.8 7.6 - 12.9 [facility] LABORATORY nRBC % Auto 0.0 % [facility] LABORATORY nRBC Abs Auto 0.000 0.000 - [facility] 0.000 [facility] x10(3)/[facility] LABORATORY Specimen Anatomical Collection Method Collection Time Receive d Time (Source) Location / / Volume Laterality Blood 11/13/2021 7:59 AM 8:07 EDT AM EDT Resulting Agency Comment Spec In Lab Kale Sy MD HEMATOLOGY ORDERABLES Performing Organization Address City/State/[place] [address] Prothrombin Time (11/13/2021 7:59 AM EDT) P athologist Signature PT 11.7 9.4 - 12.5 [facility] LABORATORY INR 1.0 [facility] LABORATORY Comment: An INR <2.0 [...] Address City/State/[place] [address] documented in this encounter [...] mg documented in this encounter Care Teams Software Engineer Backend Relationship Specialty Start Date End Date Amelia Gomes APRN PCP - General Family Medicine 10/17/[address] [place] [address] documented as of this encounter
--- OUTSIDE RECORDS SUMMARY | 2022-01-24 16:46 | XMS_ITS | Encounter Summary ---
:1935 Author Organization [facility] [place] [address] Care Team Providers Name Role Phone MireyaZaidAmeliamat Branch APRN Primary Care Provider [phone] Encounter Details Date Type Department Care Team Description 10/30/2021 Orders Only Radiology at [facility] Meera Sosa, [facility] [place] [address] [facility] [phone] RADIOLOGY DEPT [place], [place] [address] (Wo rk) Social History Tobacco [...] mouth. ??? fluticasone propionate (FLONASE) 50 mcg/actuation [place], Suspension by Each Nare route daily. ??? [...] [facility] DR ONCOLOGY DEPT. [place], [place] [address] (Wo rk) 01/28/2022 Office Visit Radiation Oncology Chilango Michel MD [facility] RADIATION ONCOLO GY [place], [place] [address] (Wo rk) 01/29/2022 Infusion Hematology and Oncology 02/05/2022 Infusion Hematology and Oncology documented as of this encounter Visit Diagnoses Not on filedocumented in this encounter Care Teams Welding Machine Operator Thermit Relationship Specialty Start Date End Date Amelia Gomes APRN PCP - General Family Medicine 10/17/20 [address] [place] [address] documented as of this encounter
--- OUTSIDE RECORDS SUMMARY | 2022-01-24 16:46 | XMS_ITS | Encounter Summary ---
:1935 Author Organization [facility] [place] [address] Care Team Providers Name Role Phone Amelia Gomes Sarina CARLOS Primary Care Provider Encounter Details Date Type Department Care Team Description 10/28/2021 Orders Only Maxillofacial Surgery [place] [address] [place] [address] [phone] Social History Tobacco Use Types Packs/Day Years [...] [facility] DR ONCOLOGY DEPT. [place], [place] [address] (Wo rk) 01/28/2022 Office Visit Radiation Oncology Chilango Michel MD [facility] RADIATION ONCOLO [place], [place] [address] (Wo rk) 01/29/2022 Infusion Hematology and Oncology 02/05/2022 Infusion Hematology and Oncology documented as of this encounter Visit Diagnoses Not on filedocumented in this encounter Care Teams Vascular Ultrasound Technologist Relationship Specialty Start Date End Date Amelia Gomes APRN PCP - General Family Medicine 10/17/[address] [place] [address] documented as of this encounter
--- OUTSIDE RECORDS SUMMARY | 2022-01-24 16:47 | XMS_ITS | Encounter Summary ---
:1935 Author Organization [facility] [place] [address] Care Team Providers Name Role Phone Geovanni Irwin MD Primary Care Provider Reason for Visit Reason Comments Skin Check Encounter Details Date Type Department Care Team Description 02/02/2012 Follow-Up Dermatology Zeke Pulido History of skin cancer (Prim rosanna Dx); [facility] MD Sarina [place] (actinic keratosis); Drive [facility] [place] (seborrheic keratosis) [place] [address] DERMATOLOGY DEPT . [place], [place] [address] (Wo rk) Social History Tobacco [...] changes: Zeke Pulido MD Section of Dermatology [facility] documented in this encounter Plan of Treatment Upcoming Encounters Date Type Specialty Care Team Description 01/26/2022 Infusion Hematology and Oncology 01/26/2022 Office Visit Hematology and Oncology Mirta Sy MD [facility] DR ONCOLOGY DEPT. [place], [place] [address] (Wo rk) 01/28/2022 Office Visit Radiation Oncology Chilango Michel MD [facility] RADIATION [place], [place] 0375 (Wo rk) 01/29/2022 Infusion Hematology and Oncology 02/05/2022 Infusion Hematology and Oncology documented as of this encounter Visit Diagnoses Diagnosis History of skin cancer - Primary Personal history of other malignant neop lasm of skin [place] (actinic keratosis) Actinic keratosis [place] (seborrheic keratosis) Other seborrheic keratosis documented in this encounter Care Teams Statistics Teacher Relationship Specialty Start Date End Date Geovanni Irwin MD PCP - General 12/09/10 10/16/[address] [place] [address] documented as of this encounter
--- OUTSIDE RECORDS SUMMARY | 2022-01-24 16:47 | XMS_ITS | Encounter Summary ---
:1935 Author Organization [facility] [place] [address] Care Team Providers Name Role Phone Geovanni Irwin MD Primary Care Provider Reason for Visit Reason Comments Basal Cell Carcinoma Encounter Details Date Type Department Care Team Description 03/04/2011 Office Visit Dermatology Fercho Hogan, BCC (basal cell [facility] MD carcinoma) (Primary [facility] Dx) [place] [address] [facility] TABARES-DERMATOLOGY [place], [place] [address] (Wo rk) Social History Tobacco [...] orally bid x 7days called in to [facility] in [place], [place] per . Fercho Hogan MD - 03/04/2011 1:38 PM EST Operative Report Patient name: Pino Wong : 1935 Date: 03/04/2011 Staff Surgeon: Fercho Hogan MD, PhD Auto Roller I: Madeleine Knox, Grady Gallo Machine Ii Trimmer: Lexie Senll Pre-operative diagnosis:BCC Post-operative diagnosis: BCC Location: left [...] 03/04/2011 Staff Surgeon: Fercho Hogan MD, PhD Auto Roller I: Madeleine Knox, Vidya [place], Grady Padron [...] Pino Wong : 1935 [address] RIVKA [address] [facility] [place] [address] [address] Ramirez, Today I saw Pino [...] [facility] DR ONCOLOGY DEPT. [place], [place] [address] (Wo rk) 01/28/2022 Office Visit Radiation Oncology Chilango Michel MD [facility] RADIATION ONCSHANTEL [place], [place] [address] (Wo rk) 01/29/2022 Infusion Hematology and Oncology 02/05/2022 Infusion Hematology and Oncology documented as of this encounter Visit Diagnoses Diagnosis BCC (basal cell carcinoma) - Primary Basal cell carcinoma of skin, site unspe cified documented in this encounter Care Teams Manager Nursing Home Relationship Specialty Start Date End Date Geovanni Irwin MD PCP - General 12/09/10 10/16/[address] [place] [address] documented as of this encounter
--- OUTSIDE RECORDS SUMMARY | 2022-01-24 16:47 | XMS_ITS | Encounter Summary ---
:1935 Author Organization [facility] [place] [address] Care Team Providers Name Role Phone Judith Mckeon MD Primary Care Provider Reason for Visit Reason Comments Skin Check Encounter Details Date Type Department Care Team Description 02/12/2011 Office Visit Dermatology CLINIC, DR VARGAS Neoplasm of unspecified natu re of bone, soft tissue, and skin (Primary Dx); [facility] Meghana Rodríguez MD [facility] [address] [place] [address] [place] [address] Social History Tobacco Use Types Packs/Day Years [...] for review and changes: Meghana Ramirez MD Postal Worker of Dermatology Department of Surgery [facility] cc: JUDITH MCKEON MD documented in this encounter Plan of Treatment Upcoming Encounters Date Type Specialty Care Team Description 01/26/2022 Infusion Hematology and Oncology 01/26/2022 Office Visit Hematology and Oncology Mirta Sy MD [facility] DR ONCOLOGY DEPT. [place] [address] (Wo rk) 01/28/2022 Office Visit Radiation Oncology Chilango Michel MD [facility] [place] [address] (Wo rk) 01/29/2022 Infusion [...] Method Time Signature Surgical CERNER Pathology ? [facility] [place] ? Provider: ?? MEGHANA RAMIREZ ?? Pt. Name: ?? FLAVIO Piedra, PINO Ward ? Acc #: ?[id number] ? Pt. ? Col Date: ?? 02/13/20 [...] Organization Address City/State/[place] [address] HOSPITAL LABORATORY [facility] documented in this encounter Visit Diagnoses Diagnosis Neoplasm of unspecified nature of bone, soft tissue, and skin - Primary Actinic keratoses Actinic keratosis documented in this encounter Care Teams Blanket Washer Relationship Specialty Start Date End Date Judith Mckeon MD PCP - General 12/09/10 10/16/[address] [place] [address] documented as of this encounter
--- OUTSIDE RECORDS SUMMARY | 2022-01-24 16:47 | XMS_ITS | Encounter Summary ---
:1935 Author Organization [facility] Address [address] [place] [address] Care Team Providers Name Role Phone Geovanni Irwin MD Primary Care Provider Reason for Visit Reason Comments Skin Check Encounter Details Date Type Department Care Team Description 08/17/2012 Follow-Up Dermatology at Lucho Castanon MD [place] (actinic keratosis) (Primary Dx); [address] [facility] [address] History of nonmelanoma skin cancer; [address] DERMATOLOGY Scar; [place] [address] [place] [address] [place] (seborrheic keratosis) [phone] (Wo rk) Social History Tobacco Use Types [...] reviewed, changed, edited and signed by staff director traffic and planning: Bertha Elliott MD Section of Dermatology [facility] documented in this encounter Plan of Treatment Upcoming Encounters Date Type Specialty Care Team Description 01/26/2022 Infusion Hematology and Oncology 01/26/2022 Office Visit Hematology and Oncology Mirta Sy MD [facility] DR ONCOLOGY DEPT. [place], [place] [address] (Wo rk) 01/28/2022 Office Visit Radiation Oncology Chilango Michel MD [facility] RADIATION ONCOLO GY [place], [place] [address] (Wo rk) 01/29/2022 Infusion Hematology and Oncology 02/05/2022 Infusion Hematology and Oncology documented as of this encounter Visit Diagnoses Diagnosis [place] (actinic keratosis) - Primary Actinic keratosis History of nonmelanoma skin cancer Personal history of other malignant neop lasm of skin Scar Scar condition and fibrosis of skin [place] (seborrheic keratosis) Other seborrheic keratosis documented in this encounter Care Teams Streetcar Starter Relationship Specialty Start Date End Date Geovanni Irwin MD PCP - General 12/09/10 10/16/[address] [place] [address] documented as of this encounter
--- OUTSIDE RECORDS SUMMARY | 2022-01-24 16:47 | XMS_ITS | Encounter Summary ---
:1935 Author Organization [facility] Address [place] [address] Care Team Providers Name Role Phone Geovanni Irwin MD Primary Care Provider Reason for Visit Reason Onset Date Comments Results 02/16/2011 Encounter Details Date Type Department Care Team Description 02/16/2011 Telephone Dermatology Meghana Rodríguez MD Results [facility] [place] [address] [facility] [address]-DERMATOLGY [phone] [place], [place] [address] (Wo rk) Social History Tobacco [...] this encounter Miscellaneous Notes Telephone Encounter - Mgehana Ledezma MD - 02/16/2011 8:42 AM EST Called pt, discussed dx, BCC - needs Mohs. documented in this encounter Plan of Treatment Upcoming Encounters Date Type Specialty Care Team Description 01/26/2022 Infusion Hematology and Oncology 01/26/2022 Office Visit Hematology and Oncology Mirta Sy MD [facility] DR ONCOLOGY DEPT. [place], [place] [address] (Wo rk) 01/28/2022 Office Visit Radiation Oncology Chilango Michel MD [facility] RADIATION ONCOLO [place], [place] [address] (Wo rk) 01/29/2022 Infusion Hematology and Oncology 02/05/2022 Infusion Hematology and Oncology documented as of this encounter Visit Diagnoses Not on filedocumented in this encounter Care Teams Hospital Receiving Clerk Relationship Specialty Start Date End Date Geovanni Irwin MD PCP - General 12/09/10 10/16/[address] [place] [address] documented as of this encounter
--- OUTSIDE RECORDS SUMMARY | 2022-01-24 16:47 | XMS_ITS | Encounter Summary ---
:1935 Author Organization [facility] [place] [address] Care Team Providers Name Role Phone Geovanni Irwin MD Primary Care Provider Reason for Visit Reason Comments Skin Check Encounter Details Date Type Department Care Team Description 07/21/2011 Follow-Up Dermatology Meghana Rodríguez, [place] (actinic keratosis) (Prim rosanna Dx); [facility] [place] (seborrheic keratosis) Drive [place] [id number]-DERMAT [place] [address] (Wo rk) Social History Tobacco Use Types [...] for review and changes: Meghana Ledezma MD Managing Attorney of Dermatology Department of Surgery [facility] documented in this encounter Plan of Treatment Upcoming Encounters Date Type Specialty Care Team Description 01/26/2022 Infusion Hematology and Oncology 01/26/2022 Office Visit Hematology and Oncology Mirta Sy MD [facility] DR ONCOLOGY DEPT. [place], [place] [address] ( alondra) 01/28/2022 Office Visit Radiation Oncology Chilango Michel MD [facility] RADIATION ONCOLO [place], [place] [address] ( alondra) 01/29/2022 Infusion Hematology and Oncology 02/05/2022 Infusion Hematology and Oncology documented as of this encounter Visit Diagnoses Diagnosis AK (actinic keratosis) - Primary Actinic keratosis [place] (seborrheic keratosis) Other seborrheic keratosis documented in this encounter Care Teams Custom Motorcycle Painter Relationship Specialty Start Date End Date Geovanni Irwin MD PCP - General 12/09/10 10/16/[address] [place] [address] documented as of this encounter
--- OUTSIDE RECORDS SUMMARY | 2022-01-24 16:47 | XMS_ITS | Encounter Summary ---
:1935 [place] [address] Care Team Providers Name Role Phone Geovanni Irwin MD Primary Care Provider Reason for Visit Reason Comments Basal Cell Carcinoma Encounter Details Date Type Department Care Team Description 04/13/2011 Follow-Up Dermatology Fercho Hogan, BCC (basal cell [facility] MD carcinoma of skin) [facility] (Primary Dx) [place] [address] [facility] [address]-DERMATOLOGY [place], [place] [address] (Wo rk) Social History Tobacco [...] Visit Hematology and Oncology Mirta Sy MD [facility] DR ONCOLOGY DEPT. [place], [place] [address] (Wo rk) 01/28/2022 Office Visit Radiation Oncology Chilango Michel MD [facility] RADIATION ONCOLO [place], [place] [address] (Wo rk) 01/29/2022 Infusion Hematology and Oncology 02/05/2022 Infusion Hematology and Oncology documented as of this encounter Visit Diagnoses Diagnosis BCC (basal cell carcinoma of skin) - Ciara robles Basal cell carcinoma of skin, site unspe cified documented in this encounter Care Teams Workers Compensation Analyst Relationship Specialty Start Date End Date Geovanni Irwin MD PCP - General 12/09/10 10/16/[address] [place] [address] documented as of this encounter
--- OUTSIDE RECORDS SUMMARY | 2022-01-24 16:47 | XMS_ITS | Encounter Summary ---
:1935 Author Organization [facility] [place] [address] Care Team Providers Name Role Phone Geovanni Irwin MD Primary Care Provider Reason for Visit Reason Comments Skin Check Encounter Details Date Type Department Care Team Description 08/22/2014 Follow-Up Dermatology at [place] Meghana Rodríguez T, History of basal cell carcinoma; Eris MUNOZ [place] (actinic keratosis); [address] [facility] Seborrheic keratosis; [place] [address] [address] Dermatofibroma; [phone] [facility] Seborrheitran mariscal tosis, inflamed RD-DERMATOLGY [place], [place] [address] (Wo rk) Social History Tobacco [...] weeks. Please contact the Dermatology clinic at [phone] if the lesion has not fully resolved [...] x 1 -Left tragus x 1 -Left voodoo x 1 -Right voodoo x 1 C. Multiple 0.4-0.6cm brown papules [...] 1 year for a skin cancer examination, typing secretary will call to schedule, or sooner if needed. I am documenting this encounter acting as the scribe for and in the presence of Dr. Rodríguez: Madeleine Colvin LPN I performed the above scribed service and agree with the accuracy of the documentation in this encounter. Meghana Rodríguez MD Ornamental Metal Worker Apprentice of Dermatology, Department of Clerical Administrative AssistantOrnamental Metal Worker Apprenticereroller hand (Dermatopathology) [facility] documented in this encounter Plan of Treatment Upcoming Encounters Date Type Specialty Care Team Description 01/26/2022 Infusion Hematology and Oncology 01/26/2022 Office Visit Hematology and Oncology Mirta Sy MD [facility] DR ONCOLOGY DEPT. [place], [place] [address] (Wo rk) 01/28/2022 Office Visit Radiation Oncology Chilango Michel MD [facility] ER RADIATION ONCOLO GY [place], [place] [address] (Wo rk) 01/29/2022 Infusion Hematology [...] keratosis documented in this encounter Care Teams Survey Operations Director Relationship Specialty Start Date End Date Geovanni Irwin MD PCP - General 12/09/10 10/16/[address] [place] [address] documented as of this encounter
--- OUTSIDE RECORDS SUMMARY | 2022-01-24 16:47 | XMS_ITS | Encounter Summary ---
:1935 Author Organization [facility] [place] [address] Care Team Providers Name Role Phone Geovanni Irwin MD Primary Care Provider Reason for Visit Reason Comments Skin Check Encounter Details Date Type Department Care Team Description 08/16/2013 Follow-Up Dermatology at Meghana Young Ac tinic keratosis (Primary Dx); Eris Kirby MD Seborrheic keratosis; [address] [facility] Multiple benign nevi; [place] [address] [address] Dermatofibroma [phone] [facility] RAYSA-DERMATOLGY [place], [place] [address] Social History Tobacco Use Types [...] weeks. Please contact the Dermatology clinic at [phone] if the lesion has not fully resolved [...] Elliott on 08/17/12 and is established to ne. He is here for a full skin [...] waxy stuck on appearance on the left spiritism and back C. Multiple, 0.3-0.5cm, scattered medium-brown, [...] documentation in this encounter. Meghana Rodríguez MD Graphite Pan Drier Tender of Dermatology, Department of Marble PolisherGraphite Pan Drier Tenderanimal skinner (Dermatopathology) [facility] documented in this encounter Plan of Treatment Upcoming Encounters Date Type Specialty Care Team Description 01/26/2022 Infusion Hematology and Oncology 01/26/2022 Office Visit Hematology and Oncology Mirta Sy MD [facility] ONCOLOGY DEPT. [place], [place] [address] (Wo rk) 01/28/2022 Office Visit Radiation Oncology Chilango Michel MD [facility] RADIATION ONCOLO [place], [place] [address] (Wo rk) 01/29/2022 Infusion Hematology and Oncology 02/05/2022 Infusion Hematology and Oncology documented as of this encounter Visit Diagnoses Diagnosis Actinic keratosis - Primary Seborrheic keratosis Other seborrheic keratosis Multiple benign nevi Benign neoplasm of skin, site unspecifie d Dermatofibroma Benign neoplasm of skin, site unspecifie d documented in this encounter Care Teams Sound Technician Relationship Specialty Start Date End Date Geovanni Irwin MD PCP - General 12/09/10 10/16/[address] [place] [address] documented as of this encounter
[2022-01-24] MEDS: Lactated Ringers 1,000 ML 125 ML IV (16:58)
[2022-01-24] MEDS: Pantoprazole 40 MG VIAL IVP (18:27)
[2022-01-24] MEDS: Normal Saline Flush 10 ML SYR IVP ×2 (18:27→20:20)
[2022-01-24] MEDS: CEFEPIME 2 GM in Normal Saline 100 ML IVPB (20:20)
[2022-01-24] MEDS: Triamcinolone 0.1% CR 15 GM TUBE TP (20:21)
[2022-01-25] VITALS (10 sets, daily range): BP systolic 79–163; BP diastolic 57–84; PULSE 80–91; RESP 16–19; TEMP 36.6–37.7; O2SAT 96–97
--- NOTE | 2022-01-25 | DI.CT_ITS ---
Exam(s) CT HEAD - STROKE PROTOCOL EXAM: CT HEAD - STROKE PROTOCOL CLINICAL HISTORY: ?acute CVA. TECHNIQUE: Imaging Protocol: Axial computed tomography images with coronal and sagittal reformatted images were created and reviewed COMPARISON: CT CT HEAD WO from 01/24/2022 FINDINGS: Ventricles and Extra axial spaces: Normal in size and morphology for the patient's age. Hemorrhage: None. Cerebral parenchyma: Mild atrophy. Mild white matter changes consistent with small vessel disease. Midline shift: None. Brainstem/Cerebellum: Normal. Calvarium: Normal. Visualized Paranasal sinuses/Mastoids: Clear. IMPRESSION: No acute abnormality. RADIATION DOSE DELIVERED: Total DLP Total DLP DATA REPOSITORY: All CT scans at this facility are submitted to the National Radiology Data Registry (NRDR) Dose Index Registry (DIR) with the [employer] (ACR). RADIATION OPTIMIZATION: All CT scans at this facility use at least one of these dose optimization te chniques: automated exposure control; mA and/or kV adjustment per patient size (includes targeted exa ms where dose is matched to clinical indication); or iterative reconstruction.
--- NOTE | 2022-01-25 | DI.CT_ITS ---
Exam(s) CT BRAIN NECK CTA EXAM: CT BRAIN NECK CTA CLINICAL HISTORY: ?CVA. TECHNIQUE: Imaging Protocol: Axial CT angiography was performed with multi-slice acquisition and mu lti-planar and 3D reconstructions. CONTRAST MATERIAL: Intravenous: Omnipaque 350 Contrast volume:[address] CHEST PE ABD PELVIS W from 01/24/2022 FINDINGS: CT Head W/O and W contrast: Ventricles and Extra axial spaces: Normal in size and morphology for the patient's age. Hemorrhage: None. Cerebral parenchyma: Mild atrophy and white matter changes of small vessel disease. Midline shift: None. Brainstem/Cerebellum: Normal. Calvarium: Normal. Visualized Paranasal sinuses/Mastoids: Clear. Soft Tissues: Unremarkable. Enhancement: Normal. CTA Brain W: Internal Carotid Arteries: Petrous: Normal. Cavernous: Normal. Cerebral: Normal. Middle Cerebral Arteries: Right: No aneurysm, occlusion or significant stenosis. Left: No aneurysm, occlusion or significant stenosis. Anterior Cerebral Arteries: Right: No aneurysm, occlusion or significant stenosis. Left: No aneurysm, occlusion or significant stenosis. Posterior cerebral Arteries: Right: No aneurysm, occlusion or significant stenosis. Right vertebral artery is dominant. Left: No aneurysm, occlusion or significant stenosis. Vertebral Arteries: Right: No aneurysm, occlusion or significant stenosis. Left: No aneurysm, occlusion or significant stenosis. Basilar Artery: No aneurysm, occlusion or significant stenosis. CTA Neck W: Common Carotid: Right: Mild calcific plaque. No aneurysm, occlusion or significant stenosis. Left: Mild calcific plaque. No aneurysm, occlusion or significant stenosis. External Carotid: Right: No aneurysm, occlusion or significant stenosis. Left: No aneurysm, occlusion or significant stenosis. Internal Carotid: Right: No aneurysm, occlusion or significant stenosis. Right vertebral artery is dominant. Left: No aneurysm, occlusion or significant stenosis. Vertebral Artery: Right: No aneurysm, occlusion or significant stenosis. Left: No aneurysm, occlusion or significant stenosis. Lung Apices: Normal. Bones: Degenerative changes, unremarkable for age. Soft Tissues: Dental artifact somewhat limited visualization of the surrounding tissues. IMPRESSION: 1. Normal CTA examination of the [place]. 2. Mild white matter changes of small vessel disease. No evidence acute infarct, hemorrhage or mass. 3. Mild calcific plaque at both common carotid bulbs. No significant stenosis. RADIATION DOSE DELIVERED: Total DLP DATA REPOSITORY: All CT scans at this facility are submitted to the National Radiology Data Registry (NRDR) Dose Index Registry (DIR) with the [employer] (ACR). RADIATION OPTIMIZATION: All CT scans at this facility use at least one of these dose optimization te chniques: automated exposure control; mA and/or kV adjustment per patient size (includes targeted exa ms where dose is matched to clinical indication); or iterative reconstruction.
[2022-01-25] MEDS: CEFEPIME 2 GM in Normal Saline 100 ML IVPB ×3 (03:31→19:50)
[2022-01-25 07:02] LABS: Abs Immature Grans 0.01 10^3/uL (0.0-0.06); Absolute Eosinophil Count 0.01 10^3/uL (0.0-0.7); Absolute Lymphocyte Count 0.19 10^3/uL (1.2-3.4); Absolute Monocyte Count 0.45 10^3/uL (0.1-0.8); Eosinophils % 0.4; HCT 32.6 % (40.0-50.0); HGB 11.6 g/dL (13.5-17.5); Immature Grans % 0.4; Lymphocytes % 8.4; MCH 32.3 pg (27.0-33.0); MCHC 35.6 % (32.0-36.0); MCV 91 fL (80-95); MPV 9.1 fL (8.0-11.0); Monocytes % 19.9; Neutrophils % 70.9; Platelet Count 147 10^3/uL (130-400); RBC 3.59 10^6/uL (4.36-5.78); RDW 14.9 % (11.8-14.1); RDW-SD 47.3 fL; WBC 2.26 10^3/uL (4.4-10.8)
[2022-01-25 07:13] LABS: Anion Gap 8.4 mmol/L (3-11); BUN 18 mg/dL (7-18); CO2 27.6 mmol/L (21.0-32.0); CREATININE 0.8 mg/dL (0.70-1.30); Calcium 8.7 mg/dL (8.5-10.1); Chloride 97 mmol/L (98-107); Estimated GFR 87.27 (mL/min/1.73m2); Glucose 106 mg/dL (74-106); Magnesium 1.5 mg/dL (1.8-2.4); Potassium 3.4 mmol/L (3.5-5.1); Sodium 133 mmol/L (136-145)
--- NOTE | 2022-01-25 09:28 | PDOC.CMIN ---
- If Service Date Differs Date of service: 01/25/22 Time of Service: 09:28 Care Management Initial Assess REASON FOR HOSPITALIZATION:: Sepsis PAST MEDICAL HISTORY/PAST SURGICAL HISTORY:: All Active Problems (Updated 01/24/22 @ 17:16 by Nely Menjivar MD). Elevated troponin (Acute). Discharge planning issues (Acute). DVT prophylaxis (Acute). Encephalopathy (Acute). Sepsis (Acute). Altered mental state (Acute). Fever (Acute). Acute urinary retention (Acute). Gout (Chronic). 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 Cedillo by Dr Pena. Tonsillar mass (Acute). Dyspnea on exertion (Acute). Hyperlipidemia (Acute). Generalized osteoarthritis (Acute). Medical History . Benign prostatic hyperplasia. microwave TUR. Celiac disease. Gastric motor function disorder. Inflamed seborrheic keratosis. Kidney stone (03/03/07). [address], several recurrances. Polyp of colon. Retinal artery branch occlusion. Surgical History . Colonoscopy - MAC (~2006). NEG BUT + family hx. Cystoscopy. History of transurethral resection of prostate. Replacement of total knee joint. x 2. Status post cystoscopy. Status post total knee replacement. bilateral. Transurethral prostatectomy PREVIOUS FUNCTIONAL STATUS/SOCIAL/FAMILY SUPPORTS:: Pino lives in [place] with his Angelina. They have one child, a son named Espinoza, who lives in [place]. They also have one grandchild and one great grandchild. 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 He is independent at baseline and does not receive any community services. CURRENT FUNCTIONAL STATUS:: Pino was sitting up in bed visiting with his when CM met with him. He was polite but did not engage much in conversation with CM. His provided a lot of the information. CM mentioned that a Pallaitive Care consult was requested. Angelina indicated that she would prefer to have a clearer picture of what is happening with Pino before that meeting takes place. Tomorrow Pino is scheduled to have an MRI and possibly an EEG as well as a neurology consult and it is hoped that the cause of his recent symptoms will be identified. ADVANCE DIRECTIVES:: On file at [facility]. Angelina SHEN Has patient been provided with info about the portal/API?: Yes Did the patient sign up for the portal?: Yes (previously) CODE STATUS:: DNR/DNI INSURANCE COVERAGE / FINANCIAL ISSUES:: Medicare. AARP Supplement CURRENT HOME/COMMUNITY SERVICES/EQUIPMENT:: none PRIMARY CARE PHYSICIAN:: Amelia Gomes POTENTIAL DISCHARGE NEEDS:: follow up with PCP, Oncology and plan of care PATIENT/FAMILY EDUCATION NEEDS:: Review of discharge instructions, activity, limitations, medications, follow up plan, Ask Me Three TRANSPORTATION:: via private vehicle with family PLAN:: Pino will likely be discharged home with no new services. He will follow up with his community providers and plan of care and transport with family. CM will contine to support Pino and assess for ongoing discharge concerns.
[2022-01-25] MEDS: POTASSIUM CHLORIDE 20 MEQ/100 ML BAG 50 MEQ IVPB ×2 (09:32→11:53)
[2022-01-25] MEDS: MAGNESIUM SULFATE 4 GM/100 ML BAG IVPB (09:32)
[2022-01-25] MEDS: VANCOMYCIN/WATER (PEG) 1.25 GM/250 ML BAG IVPB ×2 (10:35→21:13)
--- NOTE | 2022-01-25 11:48 | PT.INIE ---
PT Notes Visit Reasons: Sepsis, Encephalopathy, Elevated Troponin, Obstruc Inpatient Physical Therapy Evaluation Date: 01/25/22 Referring Doctor: Dr. Menjivar PT Orders: PT CONSULT: limited ability to ambulate Precautions: standard Patient Profile/Admitting Diagnosis: Patient admitted for medical management of sepis and encephalopathy following unresponsive episode at home yesterday. 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 Cedillo by Dr Posadaillar mass (Acute) Dyspnea on exertion (Acute) Hyperlipidemia (Acute) Generalized osteoarthritis (Acute) Medical History? Benign prostatic hyperplasia microwave TUR Celiac disease Gastric motor function disorder Inflamed seborrheic keratosis Kidney stone (03/03/07) 2020 in [place], several recurrancesPolyp of colon Retinal artery branch occlusion Social History/Home Situation: Lives at home with his . Independent at baseline, no assistive device. 3 CHARLENE home, no rails. Equipment Owned/DME: none Subjective: Patient unable to provide subjective history. reports that he was fully independent up until unresponsive episode yesterday. Objective: General Observation: Resting in bed, IV in LUE, feeding tube, Jimenez catheter, telemetry in place. Mental Status: Patient not oriented to person, place or time. Able to follow single step commands. Pain: denies ROM: Right Upper Extremity: WFL Left Upper Extremity: WFL Right Lower Extremity: WFL Left Lower Extremity: WFL Strength: Right Upper Extremity: grossly 3/5 for all motions Left Upper Extremity: grossly 3/5 for all motions Right Lower Extremity: Hip flexion 4+/5. Quads 5/5. Ankle DF 5/5 Left Lower Extremity: Hip flexion 4+/5. Quads 5/5. Ankle DF 5/5 Sensation: intact bilat LEs Neuro: Fine motor intact, with thumb to finger tapping Coordination diminished with alternating toe taps Bed Mobility/Transfers: supine-sit: mod A with HOB at 30* sit-stand: CGA with cues stand - sit: CGA with cues, with assistance for management of lines Gait: Patient ambulates 6' with FWW, CGA, and second person SBA for management of lines. Ataxic gait, with cues for equipment management and safety. Balance: Static Sitting: fair Dynamic Sitting: fair Static Standing: fair Dynamic Standing: poor Special Tests: Mobility Limitations Standardized Measure [facility] AM-PAC 6 clicks Basic Mobility Inpatient Short Form: Raw Score: 18 CMS Score: 47% impairment Informed Consent/Education: Patient instructed in purpose of PT consult and plan of care. Treatment: Initial Evaluation (49706) Therapeutic Exercises (57868): 1. LAQ 10x 2. forward punches 10x each 3. seated may 30 seconds *Patient requires constant cues for continued completion of exercises. Post treatment, he remains sitting up to chair with chair alarm in place, present, and oriented to call love. Assessment: Patient is a 86 year old male referred to physical therapy services with the diagnosis of sepsis and encephalopathy. Patient presents with clinical signs and symptoms consistent with mobility impairments related to acute medical issues. He currently demonstrates the following impairment level findings: 1. decreased coordination 2. disorientation 3. decreased safety awareness 4. decreased balance Impairments are contributing to the following functional limitations: 1. decreased safety with household distance ambulation 2. unable to manage stairs 3. decreased independence with bed mobility Patient is assessed as Moderate 62111 complexity based on the following: History: Patient is an 86 year old male who is independent at baseline, presenting with mobility deficits related to acute medical issues. He presents with incoordination, balance impairments, and altered mental status, all contributing to limitations in mobility and safety. He requires skilled PT intervention to maximize safety and mobility prior to return home with family support. Examination: functional limiations as noted above Presentation: evolving Decision Making: moderate complexity Goals: Goals X1 week 1. Supine-Sit : supervision 2. Sit-Supine supervision] 3. Sit-Stand supervision 4. Stand-Sit supervision 5. Bed-Chair supervision with FWW 6. Chair-Bed supervision with FWW 7. Gait supervision with FWW x 25' 8. Stairs : ascend and descend 3 steps, supervision only Plan of Care/Treatment Plan: 1-2x/day, 7 days/week x 1 week. Plan of care has been reviewed with the DOCUMENTATION ANALYST providing the service under Physical Therapy direction. Initiate Physical Therapy intervention for strengthening, bed mobility, transfers, gait, stairs, balance training, use of assistive device. DISCHARGE RECOMMENDATIONS: Home with services : PT TREATMENT CODE/TIME: 11:45 - 12:15 ([id number], [id number]) Hetal Sanders, PT, DPT [facility]
[2022-01-25] MEDS: Triamcinolone 0.1% CR 15 GM TUBE TP ×2 (11:54→20:06)
[2022-01-25] MEDS: Bisacodyl 10 MG SUPP PR (14:39)
--- NOTE | 2022-01-25 16:40 | W.PM.PROGNOT ---
Date of Service Date of service: 01/25/22 Time of Service: 15:00 Assessment and Plan Assessment and plan (1) Sepsis: Status: Acute Assessment and plan: bacterial meningitis ruled out. Blodo cultures pending. Continue empiric vancomycin/cefepime. (2) Encephalopathy: Status: Acute Assessment and plan: Improving. Ddx: due to excessive opioid therapy +/- septic process +/- seizure event +/- metastatic disease +/- urinary retention. Continue to hold opioids. Treat infection. Mane. Obtain an MRI, EEG, neurology consult. 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 Obtain speech therapy c/s. Restart TFs (5) Elevated troponin: Status: Acute Assessment and plan: Suspect type 2 NSTEMI in setting of acute septic process. Arrythmic event not ruled out given an episode of unresponsiveness, though that sounds more like encephalopathy and much less like a syncopal event. continue to tele. Troponins downtrended. Await echo on Wednesday. (6) DVT prophylaxis: Status: Acute Assessment and plan: SCDs for now.Will hold off of chemical DVT ppx until we know the status of the MRI of the brain (could have metastases). (7) Discharge planning issues: Status: Acute Assessment and plan: DNR/DNI per my conversation with the who is bringing her advanced directives in. PT, speech, palliative care consulted. Subjective Subjective Interval history since last seen: Mr Wong is better today, but per he is still not back to his baseline. He is not nauseated today. He is constipated. Denies dizziness, headache, chest pain, shortness of breath, abdominal pain, pain in general. No symptoms of opioid withdrawal other than possible yawning (the patient has been tired). Exam Narrative Exam Narrative: General: Elderly male who is laying flat in bed on RA, A&Ox2, much more alert and interactive today HEENT: EOMI, dry MM Cardiovascular: RRR, no m/r/g Lungs: CTAB anteriorly Gastrointestinal: soft, nontender, nondistended - LUQ gastrostomy tube in place Genitourinary: has a mane Extremities: no edema BLEs Objective Last Vital Signs Temp 37.5 C 01/25/22 15:53 Pulse 82 01/25/22 15:53 Resp 16 01/25/22 15:53 BP 132/79 01/25/22 15:53 Pulse Ox 96 01/25/22 15:53 Laboratory Results - last 24 hr 01/25/22 01/25/22 06:34 06:34 WBC 2.26 L RBC 3.59 L Hgb 11.6 L Hct 32.6 L MCV 91 MCH 32.3 MCHC 35.6 RDW 14.9 H Plt Count 147 MPV 9.1 Immature Gran % 0.4 Neutrophils % 70.9 Lymphocytes % 8.4 Monocytes % 19.9 Eosinophils % 0.4 Basophils % 0.0 Nucleated RBC % 0.0 Absolute Neutrophils 1.60 Absolute Lymphocytes 0.19 L Absolute Monocytes 0.45 Absolute Eosinophils 0.01 Absolute Basophils 0.00 Sodium 133 L Potassium 3.4 L Chloride 97 L Carbon Dioxide 27.6 Anion Gap 8.4 BUN 18 Creatinine 0.8 Est GFR (CKD-EPI 2020) 87.27 Glucose 106 Calcium 8.7 Magnesium 1.5 L C-Reactive Protein 1.20 H
[2022-01-25] MEDS: Lactated Ringers 1,000 ML 1000 ML IV (17:15)
[2022-01-25] MEDS: Normal Saline Flush 10 ML SYR IVP ×3 (17:25→19:53)
[2022-01-25] MEDS: Omnipaque 350 MG/ML 100 ML BTL IJ (17:35)
--- NOTE | 2022-01-25 17:36 | DI.VRAD_ITS ---
PROCEDURE INFORMATION: Exam: CT Head Without Contrast Exam date and time: 01/25/2022 5:24 PM Age: 86 years old Clinical indication: Stroke-like symptoms; Other: Acute CVA? TECHNIQUE: Imaging protocol: Computed tomography of the head without contrast. Other technique: STROKE PROTOCOL was implemented. COMPARISON: CT HEAD WO 24/01/2022 04:25 FINDINGS: Brain: Brain shows involutional changes with sulcal enlargement similar to previous exam. No intra-axial or extra-axial hemorrhage. No acute infarct visible at this time. Zone of hypodensity in the sheri appears similar to previous exam. Mild white matter microangiopathic changes. Cerebral ventricles: Normal. No ventriculomegaly or midline shift. Pituitary gland and sella: Normal. No enlargement. Paranasal sinuses: Visualized sinuses are unremarkable. No fluid levels or mucosal thickening. Mastoid air cells: Visualized mastoid air cells are well aerated. Bones/joints: Unremarkable. No acute fracture. Soft tissues: Unremarkable. Vasculature: No significant atherosclerotic calcification. IMPRESSION: Involutional and chronic white matter changes. 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 No new acute abnormality. ASSESSMENT: ASPECTS ([place] Stroke Program Early CT Score) is 10. Dictated and Authenticated by: Radu Tirado MD. Ordering:VANIA Mckay MD
[2022-01-25 17:45] LABS: Cryptococcal Antigen CSF Negative (Negative)
--- NOTE | 2022-01-25 17:55 | DI.VRAD_ITS ---
PROCEDURE INFORMATION: Exam: CTA Head Without And With Contrast, Arteriography Exam date and time: 01/25/2022 5:31 PM Age: 86 years old Clinical indication: Other: ? CVA TECHNIQUE: Imaging protocol: Computed tomographic angiography of the head without and with contrast. Exam focused on the arteries. 3D rendering (Not supervised by radiologist): MIP and/or 3D reconstructed images were created by the technologist. Contrast material: OMNIPAQUE 350; Contrast volume: 85 ml; Contrast route: INTRAVENOUS (IV); COMPARISON: CT HEAD - STROKE PROTOCOL 25/01/2022 17:24 FINDINGS: ANTERIOR CIRCULATION: Right internal carotid artery: Intracranial segment is patent with no significant stenosis or occlusion. No aneurysm. Right middle cerebral artery: No occlusion or significant stenosis. No aneurysm. Right anterior cerebral artery: No occlusion or significant stenosis. No aneurysm. Left internal carotid artery: Intracranial segment is patent with no significant stenosis. No aneurysm. Left middle cerebral artery: No occlusion or significant stenosis. No aneurysm. Left anterior cerebral artery: No occlusion or significant stenosis. No aneurysm. POSTERIOR CIRCULATION: Right vertebral artery: No occlusion or significant stenosis. No aneurysm. Dominant right vertebral artery. Left vertebral artery: No occlusion or significant stenosis. No aneurysm. Basilar artery: No occlusion or significant stenosis. No aneurysm. Right posterior cerebral artery: No occlusion or significant stenosis. No aneurysm. Left posterior cerebral artery: No occlusion or significant stenosis. No aneurysm. HEAD: Brain: Normal. No hemorrhage. Unremarkable white matter. No mass effect. Cerebral ventricles: Normal. No ventriculomegaly. Bones/joints: Unremarkable. No acute fracture. Paranasal sinuses: Visualized sinuses are normal. No fluid levels. Mastoid air cells: Visualized mastoids are normal. No mastoid effusion. Soft tissues: Unremarkable. IMPRESSION: No large vessel occlusion. Unremarkable CT head. PROCEDURE INFORMATION: Exam: CTA Neck Without And With Contrast Exam date and time: 01/25/2022 5:31 PM Age: 86 years old Clinical indication: Other: ? CVA TECHNIQUE: Imaging protocol: Computed tomographic angiography of the neck without and with contrast. 3D rendering (Not supervised by radiologist): MIP and/or 3D reconstructed images were created by the technologist. Contrast material: OMNIPAQUE 350; Contrast volume: 85 ml; Contrast route: INTRAVENOUS (IV); COMPARISON: CT CHEST PE ABD PELVIS W 24/01/2022 08:20 FINDINGS: Right common carotid artery: No stenosis. No dissection or occlusion. Mild calcified plaque. Right internal carotid artery: No stenosis of the extracranial segment. No dissection or occlusion. Right external carotid artery: No occlusion or stenosis of the origin. Left common carotid artery: No stenosis. No dissection or occlusion. Mild calcified plaque. Left internal carotid artery: No stenosis of the extracranial segment. No dissection or occlusion. Left external carotid artery: No occlusion or stenosis of the origin. Right vertebral artery: No stenosis. No dissection or occlusion. Right vertebral artery is dominant. Left vertebral artery: No stenosis. No dissection or occlusion. Soft tissues: Normal. No significant soft tissue swelling. Bones/joints: No acute fracture. IMPRESSION: No stenosis or occlusion. REFERENCES: NASCET CRITERIA. The degree of stenosis in the cervical segment of the internal carotid artery is based on NASCET criteria. Normal is no stenosis. Mild is less than 50% stenosis. Moderate is 50-69% stenosis. Severe is 70% to 99% stenosis. Total occlusion is no detectable patent lumen. Dictated and Authenticated by: Radu Tirado MD. Ordering:VANIA Mckay MD
[2022-01-25] MEDS: Pantoprazole 40 MG VIAL IVP (18:42)
[2022-01-25] MEDS: Docusate Sodium 100 MG/10 ML CUP JT (19:52)
[2022-01-25] MEDS: Aspirin 325 MG TAB NG (19:52)
[2022-01-25 20:12] LABS: Enterovirus PCR, CSF Negative (Negative)
[2022-01-26] VITALS (8 sets, daily range): BP systolic 124–145; BP diastolic 67–78; PULSE 80–98; RESP 16–19; TEMP 36.1–37.2; O2SAT 95–96
--- NOTE | 2022-01-26 | DI.RAD_ITS ---
Exam(s) XR PORTABLE CHEST AP EXAM: XR PORTABLE CHEST AP CLINICAL HISTORY: rhonchi at B bases - ?PNA. TECHNIQUE: 2D digital imaging was performed. COMPARISON: CT CT CHEST PE ABD PELVIS W from 01/24/2022 FINDINGS: Single AP portable view. Distal tip of the right sided Port-A-Cath is at the SVC-RA junction. Heart size is upper normal. The mediastinum is not widened. There is platelike atelectasis in both lung bases. Mild increased markings both lung bases. No pleu ral effusions. No pulmonary edema. IMPRESSION: There is platelike atelectasis in both lung bases. Also mild increased markings. Cannot exclude ear ly developing infiltrates. Recommend nonportable PA and lateral views when clinically possible. DATA REPOSITORY: RADIATION DOSE DELIVERED:
[2022-01-26] MEDS: CEFEPIME 2 GM in Normal Saline 100 ML IVPB ×3 (03:19→19:35)
[2022-01-26 06:32] LABS: Absolute Basophil Count 0.02 10^3/uL (0.0-0.2); Absolute Eosinophil Count 0.02 10^3/uL (0.0-0.7); Absolute Lymphocyte Count 0.19 10^3/uL (1.2-3.4); Absolute Monocyte Count 0.43 10^3/uL (0.1-0.8); Absolute Neutrophil Count 1.73 10^3/uL (1.2-6.7); Basophils % 0.8; Eosinophils % 0.8; HCT 29.8 % (40.0-50.0); HGB 10.5 g/dL (13.5-17.5); Lymphocytes % 7.9; MCH 32.3 pg (27.0-33.0); MCHC 35.2 % (32.0-36.0); MCV 92 fL (80-95); Neutrophils % 72.5; Platelet Count 137 10^3/uL (130-400); RBC 3.25 10^6/uL (4.36-5.78); RDW 15.1 % (11.8-14.1); RDW-SD 47.4 fL; WBC 2.39 10^3/uL (4.4-10.8)
[2022-01-26 06:45] LABS: Anion Gap 7.8 mmol/L (3-11); BUN 23 mg/dL (7-18); CO2 26.2 mmol/L (21.0-32.0); CREATININE 0.7 mg/dL (0.70-1.30); Calcium 8.3 mg/dL (8.5-10.1); Chloride 101 mmol/L (98-107); Estimated GFR 90.86 (mL/min/1.73m2); Glucose 148 mg/dL (74-106); Potassium 3.7 mmol/L (3.5-5.1); Sodium 135 mmol/L (136-145)
--- NOTE | 2022-01-26 07:42 | W.UROLOGYCON ---
Date of service: 01/26/22 Time of Service: 09:39 Assessment and Plan Assessment and plan (1) Acute urinary retention: Status: Acute Assessment and plan: I am not certain about his voiding baseline, but based on the few [facility] records I can access, it does not appear that his retention is chronic. Hopefully he will return to his baseline (whatever that might be) once his mental status returns to baseline. With his episodes of hypotension, I think I would avoid alpha blockers for now. I would focus more on trying to improve the patient's mobility and bowel function. Once his neurologic evaluation is complete, we can give him a voiding trial. History of Present Illness History of Present Illness Chief Complaint: Urinary retention Narrative: This is an 86-year-old gentleman who has received his urologic care in [place]. He underwent a TUMT back in April of this year. He tells me the procedure was done for lower urinary tract symptoms such as frequency. He had not gone into retention prior to having the procedure His voiding symptoms improved following the procedure. I do not have access to any previous urology records. He presented to our emergency department with mental status changes. The patient's tells me that he had voided normally earlier in the day. As part of his evaluation, a CT of the chest, abdomen and pelvis was obtained. His bladder was distended and bilateral hydronephrosis was found. A Jimenez catheter was subsequently placed. Since his admission, his mental status has gradually improved. He had a MRI of the brain this morning and is awaiting a neurologic evaluation. 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 He receives his nutrition through a feeding tube. He has required MiraLAX every other day to keep his bowels moving. His mobility has been compromised, and at this point, his does not believe he could ambulate to the restroom safely on his own. He will be working with physical therapy. He has no prior history of urinary tract infection. He has never been diagnosed with prostate cancer. 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 Kidney stone (03/03/07) 2020 in [place], several recurrances Polyp of colon Retinal artery branch occlusion Surgical History Colonoscopy - MAC (~2006) NEG BUT + family hx Cystoscopy History of transurethral resection of prostate Replacement of total knee joint x 2 Status post cystoscopy Status post total knee replacement bilateral Transurethral prostatectomy Family History Mother , 65 Heart disease Father , 59 Personal history of malignant neoplasm COLON Sister Heart disease Social History Smoking/Tobacco Use Status: Never Smoking risk assessment performed?: Yes Alcohol Intake: former Drug use: Never Substance use type: does not use Caregiver/Support person: No Household members: spouse Housing: house Pets and animals: Yes Pets and animals: dog(s) Sexually active: Yes Do you think of yourself as: straight/heterosexual Current gender identity: male What is your relationship status?: Do you belong to any clubs or organized social groups?: yes Panel score (0-1 are the most socially isolated patients): 2 What type of physical activity do you participate in: none Special kena needs: No Seatbelt use: always Drive intox or ride w/intox 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 He is sitting up at the bedside brushing his teeth His vital signs are documented elsewhere His abdomen is soft. His bladder is not distended. A Jimenez catheter is in place and is draining clear urine He is awake and alert I found a CT/PET scan done at [facility] in September 2021. No hydronephrosis or distended bladder was identified at that time. There was a nonobstructing left renal stone described. I reviewed the CT scan done here at our facility on admission. There is a nonobstructing left lower pole stone. The bladder is distended with fullness of the ureters and collecting systems. His serum creatinine has remained stable. Results Last Vital Signs Temp 36.7 C 01/26/22 03:44 Pulse 86 01/26/22 03:44 Resp 16 01/26/22 03:44 BP 124/71 01/26/22 03:44 Pulse Ox 95 01/26/22 03:44 Labs Result diagrams: 01/26/22 06:18 01/26/22 06:18 Labs: Laboratory Results - last 24 hr 01/26/22 01/26/22 06:18 06:18 WBC 2.39 L RBC 3.25 L Hgb 10.5 L Hct 29.8 L MCV 92 MCH 32.3 MCHC 35.2 RDW 15.1 H Plt Count 137 MPV 9.0 Immature Gran % 0.0 Neutrophils % 72.5 Lymphocytes % 7.9 Monocytes % 18.0 Eosinophils % 0.8 Basophils % 0.8 Nucleated RBC % 0.0 Absolute Neutrophils 1.73 Absolute Lymphocytes 0.19 L Absolute Monocytes 0.43 Absolute Eosinophils 0.02 Absolute Basophils 0.02 Sodium 135 L Potassium 3.7 Chloride 101 Carbon Dioxide 26.2 Anion Gap 7.8 BUN 23 H Creatinine 0.7 Est GFR (CKD-EPI 2020) 90.86 Glucose 148 H Calcium 8.3 L Magnesium 2.0
--- NOTE | 2022-01-26 08:00 | DI.MRI_ITS ---
Exam(s) MR BRAIN WO/W EXAM: MR BRAIN WO/W CLINICAL HISTORY: AMS, head and neck malignancy, concern for mets. TECHNIQUE: Multiplanar multisequence MRI of the brain was performed. CONTRAST MATERIAL: IV Contrast: 18 ML of Dotarem contrast administered. COMPARISON: CT CT BRAIN NECK CTA from 01/25/2022 FINDINGS: VENTRICLES AND EXTRA AXIAL SPACES: Normal in size and morphology for the patient's age. HEMORRHAGE: None. CEREBRAL PARENCHYMA: There are a few bilateral scattered tiny foci of restricted diffusion seen in jesus th cerebellar hemispheres and bilateral posterior occipital parietal region as well as bilateral basa l ganglia. Underlying white matter changes of small vessel disease. Mild atrophy. No space-occupyi ng lesion identified. MIDLINE SHIFT: None. BRAINSTEM: Normal. ENHANCEMENT: No suspicious enhancement identified. VISUALIZED PARANASAL SINUSES/MASTOIDS: Clear. OTHER FINDINGS: Orbits and pituitary unremarkable. IMPRESSION: Scattered tiny focal foci of restricted diffusion in both cerebellar hemispheres, posterior occipital parietal region as well as bilateral basal ganglia consistent with embolic lacunar infarcts. DATA REPOSITORY:
[2022-01-26] MEDS: Gadoterate meglumine 20 ML SYRINGE IVP (08:46)
[2022-01-26] MEDS: Normal Saline Flush 10 ML SYR IVP ×3 (08:51→22:33)
--- NOTE | 2022-01-26 09:39 | PDOC.STREC ---
Date of service: 01/26/22 Time of Service: 09:39 Speech Therapy Recommendations Report ST Recommendations: Speech Language Pathology Recommendations Non-treatment note: Consult received; chart reviewed. Recommendations provided today via remote consult based on chart review and history/subjective provided via telephone by patient's . [place] [facility] [place] [facility] indicate patient was scheduled to complete cisplatin 01/20 and final radiation dose on 01/22. For several weeks he has been unable to tolerate PO intake secondary to pain in setting of mucositis secondary to this treatment. Weight has been fairly stable with tube feeds per most recent dietary note at [facility]. Patient recently being treated for [place] [facility] [place]. He has been performing some amount of oral care and sips of water recently primarily for oral hydration and comfort (mouth spritz). He is currently tolerating oral care with toothbrush, per his . Given altered mental status not yet back to baseline and current medical status, do not recommend PO intake unless mental status improves. Free water protocol ok (see below). Oral care should be provided as often as tolerated, using in-line suction swab kits, oral swabs, or soft-bristle toothbrush on all oral structures including tongue, gums, etc Free water protocol: If patient is completing regular oral care approx Q3-4 hrs, he may take ice chips or small sips water for comfort, minimize to 4-5 sips/ice chips per session every 2-3 hours and ensure excellent oral care prior to administration. END USER SUPPORT SPECIALIST to provide bedside evaluation tomorrow as schedule allows. HPI: Mr Wong is an 86 year old male with PMHx of squamous cell carcinoma of the tonsills on chemo (cisplatin)/radiation (last chemotherapy on 01/20/22), w/ R chest infusaport in place,? as well as h/o BPH s/p TURP, dysphagia, pain related to cancer on opioid therapy, who was noted by his to be sitting in a chair slumped over mumbling and incoherent today circa 2:30 am. The mumbling eventually stopped, and the patient became unresponsive, not opening eyes, not responding to voice, not following commands. When EMS got there, he was agitated when touched, but did not follow commands in any meaningful way. ER provider described him as having periods of agitation and periods of hypoactive delirium. He was acting normally yesterday. describes no fever at home. He has been having nausea and dry heaving for about 5 weeks (since week 2 of chemo/XRT). He was febrile up to 39.[address] head was normal. The patient was not cooperative with an LP initially, but did eventually calm down enough to have it. Results are not c/w bacterial meningitis. He was intitiated on empiric antibiotics (vancomycin/ceftriaxone). His infusaport has been cultured as well. Additionally, on this visit to the ER, the patient was found to have moderate to severe bilateral hydronephrosis with a distended bladder and obstruction at the level of bladder outlet on CT. A mane catheter was successfully placed, and since then reportedly the patient's delirium has improved somewhat. Finally, the patient was found to have an elevated troponin of 451, which trended down to 421 without any obvious cardiac symptoms, though the patient is confused. CPK was negative. There was no witnessed seizure, but the does describe a tremor in his 2nd digit R hand that he has at home and currently has here. EKG did not show acute ischemia. Admission to the hospitalist service was requested. On arrival to the medical surgical floor, the patient is awake and A&Ox1. He denies pain, including chest pain, headache, shortness of breath, nausea. He is thirsty. Per , this is the best he's been all day. ? 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 Cedillo by Dr Francoonsillar mass (Acute) Dyspnea on exertion (Acute) Hyperlipidemia (Acute) Generalized osteoarthritis (Acute) Medical History? Benign prostatic hyperplasia microwave TUR Celiac disease Gastric motor function disorder Inflamed seborrheic keratosis Kidney stone (03/03/07) 2020 in [place], several recurrancesPolyp of colon Retinal artery branch occlusion Surgical History? Colonoscopy - MAC (~2006) NEG BUT + family hxCystoscopy History of transurethral resection of prostate Replacement of total knee joint x 2Status post cystoscopy Status post total knee replacement bilateralTransurethral prostatectomy Coding
[2022-01-26] MEDS: Docusate Sodium 100 MG/10 ML CUP JT ×2 (09:57→19:35)
[2022-01-26] MEDS: Aspirin 81 MG CHEW NG (09:57)
[2022-01-26] MEDS: Triamcinolone 0.1% CR 15 GM TUBE TP ×2 (09:57→21:55)
[2022-01-26] MEDS: VANCOMYCIN/WATER (PEG) 1.25 GM/250 ML BAG IVPB ×2 (10:09→22:32)
--- NOTE | 2022-01-26 11:33 | PDOC.CMPRO ---
- If Service Date Differs Date of service: 01/26/22 Time of Service: 11:33 Care Management Progress Note S/O: Pino was sitting up in bed when CM met with him. His was by his side, visiting. Pino stated that he is looking forward to returning home, although he reported that he does not feel much better than when he arrived. He reported that he is receiving chemo and radiation for cancer that was found on his tonsils, which started about 7 weeks ago. Per report, he will have a brain MRI and echo with a bubble study today. CM will continue to follow. A: Pino is an 86 year old male admitted to [facility] on 01/24/22 for sepsis, encephalopathy, elevated troponin. P: Pino will likely be discharged home with no new services. He will follow up with his community providers and plan of care and transport with family. CM will continue to support Pino and assess for ongoing discharge concerns.
--- NOTE | 2022-01-26 12:22 | NCONE_ITS ---
Date of service: 01/26/22 Time of Service: 12:22 Assessment and Plan Assessment and plan (1) Acute ischemic multifocal multiple vascular territories stroke: Status: Acute (2) Altered mental state: Status: Acute Assessment and plan: Mr. Wong was admitted with a constellation of symptoms including AMS, hypoxia, urinary obstruction, and transient low grade fever, likely due to opioid toxicity. On 01/25/22, he had a hypotensive episode during which he had t ransient R hemiparesis of the face and arm. He had a brain MRI which showed multiple areas of punctate ischemia involving all 4 vascular territories. It is unclear if any of these are causing him any symptoms, except on 01/24/22 when he became hypotensive and thus manifested the ischemia/created a penumbra. He is essentially back to baseline today. Most likely etiology of his strokes is due to cancer state and dehydration causing a coagulopathy. A cardiac (afib) or arch source remains in the differential. He has been placed on aspirin 81mg daily following 01/24/22 event, however, given MRI findings, I would instead recommend anticoagulation for stroke prevention in addition to further testing as below - which may change duration of anticoagulation. Anticoagulation will need to be discussed with oncology who per patient stopped his daily aspirin prior to chemo and radiation. Work-up: -BHAVIN -Telemetry with extended 30 day cardiac monitoring as an outpatient -A1c -B12 Medications: -anticoagulation pending discussion with cancer team; ok to d/c aspirin -LDL already at goal and given mechanism of action, unclear role of statin at this time; Other: -Allow permissive hypertension; avoid hypotension -Physical therapy for leg weakness, gait training -Occupation therapy for upper extremity weakness, activities of daily living -Speech therapy for speech and swallow His exam was otherwise significant for an Essential Tremor. History of Present Illness History of Present Illness Chief Complaint: AMS/stroke Narrative: Handedness: right. 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 He has BPH s/p TURP, renal stones, Gilbert syndrome, hyperlipidemia. is at bedside and provided the history. At ~3am on 01/24/22, awoke to find Pino out of bed sitting in his chair, slumped, mumbling, and incoherent. He was not following commands. EMS was called at which time he became quite agitated, cursing, etc. Upon arrival in ER he was hypoxic with sats in the 80s. He switched from lethargic/minimally responsive to agitated. He had a low grade temp of 102. A CT C/A/P was significant for urinary outlet obstruction with bilateral hydronephrosis. His mentation improved slightly s/p catheterization. He has undergone the work-up as below. At home, he had been experiencing chronic/constant nausea and throat pain as part of his cancer and cancer treatment - taking oxycontin [id number]. This was help upon admission. notes mentation continued to improve through hospitalization until spell on 01/25/22 at approximately 1730. Patient was on toilet and noted to have acute transient R face and arm weakness. He was slumped per records and seemingly not following commands. SBP 70s. Symptoms resolved quickly. He was started on aspirin (load 325mg and then 81mg daily thereafter). notes that he previously took an aspirin 81mg daily prior to cancer treatment but that it was stopped by oncology prior to treatment. This am, patient essentially at baseline per . 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 manages household and does all cooking. Unclear what he is responsible for at home. is adamant that he has no cognitive issues prior to this hospitalization. Work-up: -Labs (01/24/22): W 2.50, Hgb 11.5, Na 134, BUN 26, Cr 1.2, Trop 451 -> 421, CK 44 and 52, procalcitonin <0.1, TSH 1.40, UA ok -LP (01/24/22): W2, R4, G66, P44; neg enterovirus and cryptococcus; cx pending b tn NGTD -CT (01/24/22): Moderate cerebral atrophy and chronic white matter changes. I reviewed these images personally and this is my personal interpretation. -CTH (): ?old L pontine infarct, otherwise unchanged from previous. I reviewed these images personally and this is my personal interpretation. -CTA head/neck (01/25/22): no significant stenosis. I reviewed these images p ersonally and this is my personal interpretation. -MRI Brain (01/26/22): multifocal punctate ischemic infarcts of varying ages in the bilateral cerebellum, bilateral occipital lobes, and bilateral basal ganglia. Mild-moderate chronic vascular changes and cerebral atrophy. I reviewed these images personally and this is my personal interpretation. 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 Cedillo by Dr Pena Tonsillar mass (Acute) Dyspnea on exertion (Acute) Hyperlipidemia (Acute) Generalized osteoarthritis (Acute) Medical History Benign prostatic hyperplasia microwave TUR Celiac disease Gastric motor function disorder Inflamed seborrheic keratosis Kidney stone (03/03/07) 2020 in [place], several recurrances Polyp of colon Retinal artery branch occlusion Surgical History Colonoscopy - MAC (~2006) NEG BUT + family hx Cystoscopy History of transurethral resection of prostate Replacement of total knee joint x 2 Status post cystoscopy Status post total knee replacement bilateral Transurethral prostatectomy Family History Mother , 65 Heart disease Father , 59 Personal history of malignant neoplasm COLON Sister Heart disease Social History Smoking/Tobacco Use Status: Never Smoking risk assessment performed?: Yes Alcohol Intake: former Drug use: Never Substance use type: does not use Caregiver/Support person: No Household members: spouse Housing: house Pets and animals: Yes Pets and animals: dog(s) Sexually active: Yes Do you think of yourself as: straight/heterosexual Current gender identity: male What is your relationship status?: Do you belong to any clubs or organized social groups?: yes Panel score (0-1 are the most socially isolated patients): 2 What type of physical activity do you participate in: none Special kena needs: No Seatbelt use: always Drive intox or ride w/intox wrecking car driver: No Do you feel safe in your relationship?: Yes Visit Medication and Allergies Active Medications Generic Name Dose Route Start Last Admin Trade Name Freq PRN Reason Stop Dose Admin Acetaminophen 0 mg 01/24/22 15:13 Acetaminophen 325 Mg Tab PO Q4H PRN PRN Al Hydrox/Mg Hydrox/Simethicone 30 ml 01/24/22 15:13 Mylanta Suspension 30 Ml Cup PO Q2H PRN PRN Aspirin 81 mg 01/26/22 08:30 01/26/22 09:57 Aspirin 81 Mg Chew NG 81 mg DAILY NIDIA Administration Bisacodyl 10 mg 01/25/22 14:11 Bisacodyl 10 Mg Supp VA DAILY PRN PRN Dimethicone/Zinc Oxide 0 gm 01/24/22 15:13 Trung Protect Cream 142 Gm Tube TP PRN PRN Docusate Sodium 100 mg 01/24/22 15:13 Docusate Sodium 100 Mg Cap PO TID PRN PRN Docusate Sodium 100 mg 01/25/22 20:00 01/26/22 09:57 Docusate Sodium 100 Mg/10 Ml Cup JT 100 mg BID NIDIA Administration Sodium Chloride 500 mls @ 0 mls/hr 01/24/22 15:13 Saline 500ml Bag IV PRN PRN As Directed Cefepime HCl 2 gm/ Sodium 100 mls @ 200 mls/hr 01/24/22 20:00 01/26/22 06:38 Chloride IVPB Infused Q8H NIDIA Infusion Vancomycin/PEG/NADA/Lysine/Water 1.25 gm in 250 mls @ 166.667 mls/hr 01/25/22 10:00 01/26/22 10:09 Vancocin Injection IVPB 166.667 mls/hr Q12H NIDIA Administration Acetaminophen 1,000 mg in 100 mls @ 400 mls/hr 01/24/22 17:04 Ofirmev IVPB Q8H PRN PRN IV Miscellaneous Supplies 1 each 01/24/22 15:15 Iv Access IV DIRECTED NIDIA Magnesium Hydroxide 30 ml 01/24/22 15:13 Milk Of Magnesia 30 Ml Cup PO DAILY PRN PRN Ondansetron HCl 8 mg 01/24/22 16:52 Ondansetron O.D.T. 4 Mg Tabef PO Q8H PRN PRN Pantoprazole Sodium 40 mg 01/24/22 18:00 01/25/22 18:42 Pantoprazole 40 Mg Vial IVP 40 mg Q24H NIDIA Administration Pt's Own Healios 1 each 01/25/22 14:43 MM QID PRN PRN Sodium Chloride 0 ml 01/24/22 15:13 01/26/22 08:51 Normal Saline Flush 10 Ml Syr IVP 10 ml PRN PRN Administration Triamcinolone Acetonide 0 gm 01/24/22 20:00 01/26/22 09:57 Triamcinolone 0.1% Cr 15 Gm Tube TP 1 applic BID NIDIA Administration Allergies adhesive tape Allergy (Unverified 01/24/22 11:32) Skin Rash Exam Narrative Exam Narrative: Physical Exam: Gen: Patient of apparent stated age, NAD Head and face: no facial or cranial abnormalities Neck: Supple, no meningismus, no occipital tenderness CV: + S1, S2, RRR, no murmur Resp: CTA B/L Abd: soft, nontender, nondistended, +BS, G-tube Ext: No edema. No clubbing or cyanosis. No bony deformity. Neuro Exam: Language: fluency, naming, repetition, and comprehension intact; Mental Status: AAOxself and place, current events and fund of knowledge generally intact Speech: no dysarthria Cranial nerves: Funduscopy: not performed CN II: visual cervantes intact CN III, IV, : extraocular movements intact, no nystagmus, pupils symmetric and reactive to light CN V: face sensation intact to LT and PP CN VII: no facial asymmetry noted CN VIII: hearing intact bilaterally CN IX, X: palate rises symmetrically, palatal hemorrhage noted CN XI: trapezius/SCM 5/5 bilaterally CN XII: protrudes tongue symmetrically Sensory: intact to LT, PP, vibration, and joint position in all extremities, absent Romberg Motor: bulk and tone intact. Fine motor movements intact bilaterally. No pronator drift. Strength 5/5 throughout including the deltoids, biceps, triceps, wrist extensors, hip flexors, knee flexors, knee extensors, ankle flexors, and ankle extensors. Bilateral L>R UE postural and action tremor consistent with ET. Reflexes: hyporeflexic throughout; R Babinksi, L toe downgoing Coordination: FTN and HTS intact bilaterally Gait: not tested Results Last Vital Signs Temp 98.4 F 01/26/22 11:20 Pulse 80 01/26/22 11:20 Resp 18 01/26/22 11:20 BP 136/78 01/26/22 11:20 Pulse Ox 96 01/26/22 11:20 Labs Result diagrams: 01/26/22 06:18 01/26/22 06:18 Labs: Laboratory Results - last 24 hr 01/24/22 01/24/22 01/26/22 14:40 14:40 06:18 WBC RBC Hgb Hct MCV MCH MCHC RDW Plt Count MPV Immature Gran % Neutrophils % Lymphocytes % Monocytes % Eosinophils % Basophils % Nucleated RBC % Absolute Neutrophils Absolute Lymphocytes Absolute Monocytes Absolute Eosinophils Absolute Basophils Sodium 135 L Potassium 3.7 Chloride 101 Carbon Dioxide 26.2 Anion Gap 7.8 BUN 23 H Creatinine 0.7 Est GFR (CKD-EPI 2020) 90.86 Glucose 148 H Calcium 8.3 L Magnesium 2.0 CSF Cryptococcal Ag Ttr Not Applicable CSF Cryptococcus Ag Negative CSF Enterovirus (PCR) Negative 01/26/22 06:18 WBC 2.39 L RBC 3.25 L Hgb 10.5 L Hct 29.8 L MCV 92 MCH 32.3 MCHC 35.2 RDW 15.1 H Plt Count 137 MPV 9.0 Immature Gran % 0.0 Neutrophils % 72.5 Lymphocytes % 7.9 Monocytes % 18.0 Eosinophils % 0.8 Basophils % 0.8 Nucleated RBC % 0.0 Absolute Neutrophils 1.73 Absolute Lymphocytes 0.19 L Absolute Monocytes 0.43 Absolute Eosinophils 0.02 Absolute Basophils 0.02 Sodium Potassium Chloride Carbon Dioxide Anion Gap BUN Creatinine Est GFR (CKD-EPI 2020) Glucose Calcium Magnesium CSF Cryptococcal Ag Ttr CSF Cryptococcus Ag CSF Enterovirus (PCR)
--- NOTE | 2022-01-26 14:36 | DI.US_ITS ---
APPROVED REPORT EXAM: Comprehensive 2D, Doppler, and color-flow Echocardiogram Patient Location: In-Patient Room/Bed: 210 Marine Engineer: Etelvina Florentino RDCS (AE) Indications: Elevated troponin Echo Enhancing Agent Indication: Rule out Shunt Agent(s) / Amount(s) Used: Agitated Saline 30.0 cc Comments: Contrast study was performed with 3 IV injections of 10ccs of agitated normal saline at res t. Other Information Study Quality: Poor. Technically limited study due to body habitus, post operative dressings. Conclusion Technically difficult and very limited study Left ventricular size wall thickness and systolic function appears grossly normal Right ventricle appears grossly normal in size and systolic function Both atria are normal in size Aortic valve sclerosis Mitral annular calcification Wall motion Left Ventricle The overall left ventricular systolic function appears normal. There is normal LV segmental wall mot ion. There is no ventricular septal defect visualized. LVEF is 55%. Right Ventricle Right ventricle is grossly normal in size. Right ventricular systolic function is grossly normal. Atria The left atrium size is normal. The right atrium size is normal. The interatrial septum is intact wit h no evidence for an atrial septal defect. Saline bubble contrast intravenous injection is inconclusi ve due to bubble quality. Aortic Valve Aortic valve is not well visualized but appears sclerotic There is no aortic valvular stenosis. No ao rtic regurgitation is present. Mitral Valve Mitral valve is not well visualized. There is mitral annular calcification No evidence of mitral valv e stenosis. Trace mitral regurgitation. Tricuspid Valve The tricuspid valve is normal in structure. There is no tricuspid valve stenosis. Trace tricuspid reg urgitation. Pulmonic Valve The pulmonary valve is normal in structure. There is no pulmonic valvular stenosis. There is no pulmo ese valvular regurgitation. Great Vessels The aortic root is normal in size. Ascending aorta is not well visualized. The IVC was not well visua lized. Pericardium There is no pericardial effusion. 2D Dimensions Ao Root d 2.75 cm M: 3.1 - 3.7 LV Vol A2C d MOD 100.7 mL RA Area A4C 10.32 cm2 LV Vol A4C d MOD 95.4 mL RA Vol/ BSA A4C s A-L 11.1 mL/m2 LV EF A4C MOD 55.1 % LVEF (Hodges's) 55.25 % M: 52 - 72 LV EF A2C MOD 55.8 % LV Volume 73.24 mL M: 62 - 150 LV EF Biplane MOD 55.2 % LV Volume Index 35.38 mL/m2 M: 34 - 74 SV 54.63 mL LV Vol Biplane MOD 98.9 mL SV Index 26.30 mL/m2 M-Mode TAPSE 1.43 cm (M/F) >1.7 LV Diastology MV E' medial 0.076 (>0.07 m/s) E/A Ratio 0.6 LV E/e MED 8.05 (<14) MV E Vmax 0.62 (0.4-1.3 m/s) MV E' lateral 0.099 (>0.1 m/s) MV A Vmax 1.00 (0.4-1.3 m/s) LV E/e LAT 6.20 (<14) MV E/A Ratio 0.61 MV E/E' medial 8.08 MV E/E' lateral 6.24 Aortic Valve LVOT Area 3.25 cm2 AoV Area Vmax 2.47 cm2 LVOT Vmax 0.89 m/s AoV Area/ BSA (Vmax) 1.19 cm2/m2 LVOT Mean Tommy. 0.60 m/s RENE Mean Tommy. 2.17 cm2 LVOT Peak Grad 3.1 mmHg RENE Mean Tommy. Index 1.05 cm2/m2 LVOT Mean Grad 1.7 mmHg LVOT VTI 0.148 m LVOT Diam s 2.00 cm AoV Vmax 1.16 m/s Velocity Ratio 0.76 AoV Mean Tommy. 0.90 m/s AoV Peak Grad 5.4 mmHg LVOT SV 48.19 mL AoV Mean Grad 3.4 mmHg AoV VTI 0.202 m AoV Area VTI 2.38 cm2 AoV Area/ BSA (VTI) 1.15 cm/m2 Mitral Valve MV DT 263 (160-240 msec) MV PHT 76 msec MV Area PHT 2.88 cm2 MV VTI 0.261 m MV Area VTI 1.85 (4.0-6.0 cm2) Pulmonary Valve PV Vmax 0.84 (0.5-1.5 m/s) RVOT Peak Gr. 0.82 mmHg PV Peak Grad 2.8 mmHg RVOT Mean Gr. 0.50 mmHg PV Mean Grad 2.0 mmHg RVOT VTI 0.085 m PV VTI 0.142 m RVOT Vmax 0.45 m/s Tricuspid Valve TR Peak Grad 21.3 mmHg TR Vmax 2.31 m/s
--- NOTE | 2022-01-26 15:13 | PTTR_ITS ---
Date of service: 01/26/22 Time of Service: 12:33 PT Notes Visit Reasons: Sepsis,Encephalopathy,Elevated Troponin,Obstructiv Inpatient Physical Therapy Treatment Note [facility] Date: 01/26/2022 PRECAUTIONS: Activity as tolerated, fall, seizure SUBJECTIVE: Pino is pleasant and agreeable to participating in PT. He reports that he has felt that he has been at his baseline until the past several days. He reports that he typically does not use a walker, however is not opposed to using one if he needs one for safety. He states that he would like to go home tomorrow, the latest, because I have a lot of stuff to do. OBJECTIVE: PAIN: No c/o pain BED MOBILITY/TRANSFERS: Supine-sit: SBA with HOB at 30 degrees Sit-stand: SBA Stand-sit: SBA GAIT Assistive Device: No AD Weight bearing: Full Assist: CGA - Min A Distance: 250' Deviation: Path deviation, occasional LOB with self recovery STAIRS: Up/down 3x4 and 2x6 using B rails and a step-to pattern with supervision ASSESSMENT: Patient demonstrates unsteady gait with occasional LOB with self- recovery and continuous path deviation. Patient would benefit from using a FWW with ambulation for improved safety and stability and reduce risk for falls. PLAN: Continue with gait training and add FWW for improved stability with mobility for safety. TREATMENT CODE/TIME: 15 minutes; 49364 (14:15)
[2022-01-26] MEDS: ACETAMINOPHEN 1,000 MG/100 ML BTL 400 MG IVPB (17:08)
[2022-01-26] MEDS: Pantoprazole 40 MG VIAL IVP (18:46)
[2022-01-26] MEDS: Normal Saline 500 ML 30 ML IV (19:34)
--- NOTE | 2022-01-26 19:45 | W.PM.PROGNOT ---
Date of Service Date of service: 01/26/22 Time of Service: 19:47 Assessment and Plan Assessment and plan (1) Acute ischemic multifocal multiple vascular territories stroke: Status: Acute Assessment and plan: Start anticoagulation. Will need a BHAVIN as outpatient. C/s PT, OT, speech. (2) Sepsis: Status: Acute Assessment and plan: bacterial meningitis ruled out. Blood cultures negative. Repeating CXR as the patient now has rhonchi. Continue empiric vancomycin/cefepime. (3) Encephalopathy: Status: Acute Assessment and plan: Improving mental status. I am not sure if he is having true hallucinations right now or if these are visual phenomena in association with cancer. Ddx: due to excessive opioid therapy +/- septic process+/- urinary retention. It is not clear that the embolic CVAs had anything to do with the original presentation. Metastatic disease ruled out with a negative MRI. The patient is now in significant pain, so we will trial a low dose of ultram for his pain and continue tylenol. Avoid NSAIDs as he is being initiated on eliquis. Treat infection. Mane. (4) Acute urinary retention: Status: Acute Assessment and plan: S/p mane Evaluated by urology: continue bowel regimen, avoid alpha blockers. Voiding trial later on this admission. (5) Right tonsillar squamous cell carcinoma: Status: Acute Assessment and plan: on chemo/XRT. Obtain speech therapy c/s. Continue tube feeding. Anticoagulation ok per oncology. (6) Elevated troponin: Status: Acute Assessment and plan: Suspect type 2 NSTEMI in setting of acute septic process. Arrythmic event not ruled out given an episode of unresponsiveness, though that sounds more like encephalopathy and much less like a syncopal event. No arrhythmic events on tele so far. Troponins downtrended. Await official echo read. Will need a BHAVIN per stroke workup. (7) DVT prophylaxis: Status: Acute Assessment and plan: Started on therapeutic anticoagulation. (8) Discharge planning issues: Status: Acute Assessment and plan: DNR/DNI per my conversation with the who is bringing her advanced directives in. PT, OT, speech, palliative care consulted. Subjective Subjective Interval history since last seen: Mr Wong was noted to be reaching for things that weren't there earlier today. He is currently still seeing cobwebs on the TV, but not reaching for objects anymore. Denies headache, dizziness, chest pain, shortness of breath, nausea. States his throat and the base of his tongue hurt - 08/05. Evaluated by neurology: recommended anticoagulation if ok with oncology. Discussed with oncology: feel anticoagulation with a DOAC is appropriate. Evaluated by urology: recommend avoiding alpha blockers given permissive hypertension and focusing on a bowel regimen and completing his neurologic workup prior to a voiding trial. Exam Narrative Exam Narrative: General: Elderly male who is laying flat in bed on RA, A&Ox2, even more alert and interactive today HEENT: EOMI, dry MM Cardiovascular: RRR, no m/r/g Lungs: Rhonchi at B bases Gastrointestinal: soft, nontender, nondistended - LUQ gastrostomy tube in place Genitourinary: has a mane Extremities: no edema BLEs Objective Last Vital Signs Temp 36.1 C L 01/26/22 19:23 Pulse 88 01/26/22 19:23 Resp 16 01/26/22 19:23 BP 139/78 01/26/22 19:23 Pulse Ox 96 01/26/22 19:23 Laboratory Results - last 24 hr 01/24/22 01/24/22 01/26/22 14:40 14:40 06:18 WBC RBC Hgb Hct MCV MCH MCHC RDW Plt Count MPV Immature Gran % Neutrophils % Lymphocytes % Monocytes % Eosinophils % Basophils % Nucleated RBC % Absolute Neutrophils Absolute Lymphocytes Absolute Monocytes Absolute Eosinophils Absolute Basophils Sodium 135 L Potassium 3.7 Chloride 101 Carbon Dioxide 26.2 Anion Gap 7.8 BUN 23 H Creatinine 0.7 Est GFR (CKD-EPI 2020) 90.86 Glucose 148 H Calcium 8.3 L Magnesium 2.0 CSF Cryptococcal Ag Ttr Not Applicable CSF Cryptococcus Ag Negative CSF Enterovirus (PCR) Negative 01/26/22 06:18 WBC 2.39 L RBC 3.25 L Hgb 10.5 L Hct 29.8 L MCV 92 MCH 32.3 MCHC 35.2 RDW 15.1 H Plt Count 137 MPV 9.0 Immature Gran % 0.0 Neutrophils % 72.5 Lymphocytes % 7.9 Monocytes % 18.0 Eosinophils % 0.8 Basophils % 0.8 Nucleated RBC % 0.0 Absolute Neutrophils 1.73 Absolute Lymphocytes 0.19 L Absolute Monocytes 0.43 Absolute Eosinophils 0.02 Absolute Basophils 0.02 Sodium Potassium Chloride Carbon Dioxide Anion Gap BUN Creatinine Est GFR (CKD-EPI 2020) Glucose Calcium Magnesium CSF Cryptococcal Ag Ttr CSF Cryptococcus Ag CSF Enterovirus (PCR) Objective Narrative Objective Narrative: MRI brain: Scattered tiny focal foci of restricted diffusion in both cerebellar hemispheres, posterior occipital parietal region as well as bilateral basal ganglia consistent with embolic lacunar infarcts. Echo: final read pending. Draft reviewed. LVEF 55%. Normal LA size. Normal RA size. No ventricular septal defect.
--- NOTE | 2022-01-26 20:24 | DI.VRAD_ITS ---
PROCEDURE INFORMATION: Exam: XR Chest Exam date and time: 01/26/2022 7:54 PM Age: 86 years old Clinical indication: Other: Bronchi at bases ? pna TECHNIQUE: Imaging protocol: Radiologic exam of the chest. Views: 1 view. COMPARISON: CT CHEST PE ABD PELVIS W 01/24/2022 8:20 AM FINDINGS: Right Port-A-Cath the cavoatrial junction Lungs: Minimal subsegmental atelectasis versus scarring. No consolidation. Pleural spaces: No pleural effusion. No pneumothorax. Heart/Mediastinum: Tortuous aorta. No cardiomegaly. Bones/joints: Unremarkable. IMPRESSION: No acute findings. Dictated and Authenticated by: Jefe Gutierrez MD. Ordering:VANIA Mckay MD
[2022-01-26] MEDS: Apixaban 5 MG TAB PO (21:56)
[2022-01-27] VITALS (8 sets, daily range): BP systolic 120–164; BP diastolic 69–90; PULSE 86–105; RESP 16–19; TEMP 36.7–37.8; O2SAT 94–97
--- NOTE | 2022-01-27 | DI.RAD_ITS ---
Exam(s) XR CHEST 2V PA LATERAL EXAM: XR CHEST 2V PA LATERAL CLINICAL HISTORY: evaluate bibasilar atelectasis vs consolidation. TECHNIQUE: 2D digital imaging was performed. COMPARISON: CR,XR XR PORTABLE CHEST AP from 01/26/2022 FINDINGS: 2 views: Distal tip of the right sided Port-A-Cath is at the SVC RA junction. Heart size is normal. The mediastinum is not widened. Platelike atelectasis again noted in both lung bases. Less findings to suggest infiltrates in lung b ases (when compared to the portable study earlier same date). No pleural effusions evident. No ominous pulmonary nodules. Regional bones appear unremarkable. IMPRESSION: Bibasilar platelike atelectasis. DATA REPOSITORY: RADIATION DOSE DELIVERED:
[2022-01-27] MEDS: CEFEPIME 2 GM in Normal Saline 100 ML IVPB ×2 (04:07→14:00)
[2022-01-27] MEDS: Acetaminophen 325 MG TAB PO (05:06)
[2022-01-27] MEDS: traMADol 50 MG TAB NG (05:07)
[2022-01-27 07:24] LABS: Abs Immature Grans 0.01 10^3/uL (0.0-0.06); Absolute Basophil Count 0.01 10^3/uL (0.0-0.2); Absolute Eosinophil Count 0.02 10^3/uL (0.0-0.7); Absolute Lymphocyte Count 0.19 10^3/uL (1.2-3.4); Absolute Monocyte Count 0.48 10^3/uL (0.1-0.8); Absolute Neutrophil Count 2.68 10^3/uL (1.2-6.7); Basophils % 0.3; Eosinophils % 0.6; HCT 31.7 % (40.0-50.0); HGB 10.7 g/dL (13.5-17.5); Immature Grans % 0.3; Lymphocytes % 5.6; MCH 31.8 pg (27.0-33.0); MCHC 33.8 % (32.0-36.0); MCV 94 fL (80-95); MPV 9.4 fL (8.0-11.0); Monocytes % 14.2; Platelet Count 151 10^3/uL (130-400); RBC 3.37 10^6/uL (4.36-5.78); RDW 15.3 % (11.8-14.1); RDW-SD 48.8 fL; WBC 3.39 10^3/uL (4.4-10.8)
[2022-01-27 07:40] LABS: Anion Gap 4.3 mmol/L (3-11); BUN 24 mg/dL (7-18); CO2 27.7 mmol/L (21.0-32.0); CREATININE 0.9 mg/dL (0.70-1.30); Calcium 8.5 mg/dL (8.5-10.1); Chloride 101 mmol/L (98-107); Estimated GFR 84.22 (mL/min/1.73m2); Glucose 163 mg/dL (74-106); Potassium 3.5 mmol/L (3.5-5.1); Sodium 133 mmol/L (136-145)
[2022-01-27 07:50] LABS: Hemoglobin A1C 6.6 % (<5.7)
--- NOTE | 2022-01-27 08:11 | PT.INTREAT ---
Date of service: 01/27/22 Time of Service: 07:38 PT Notes Visit Reasons: Sepsis,Encephalopathy,Elevated Troponin,Obstructiv Inpatient Physical Therapy Treatment Note [facility] Date: 01/27/2022 PRECAUTIONS: Activity as tolerated, fall, seizure SUBJECTIVE: Pino is pleasant and agreeable to participating in PT. He reports that he did not sleep well last night, he reports that he was sitting under a sprinkler system and was getting wet and no one would allow him to move. He also reports that a nurse helped him move his car last night. OBJECTIVE: PAIN: No c/o pain BED MOBILITY/TRANSFERS: Supine-sit: I Sit-stand: SBA Stand-sit: SBA GAIT Assistive Device: FWW Weight bearing: Full Assist: SBA Distance: 600' in a.m.; 300' in p.m. Deviation: Improved stability, steady gait and pacing THEREX: AM: Patient was instructed in a LE strengthening program, completed in a seated position, to include: ankle pumps, LAQ, hip flexion and hip abduction exercises, x10-15 reps each. PM: Patient was instructed in a balance retraining program, completed in a standing position, to include: SLS, feet together e.o., feet together e.c., tandem stance, tandem walking F/B, all completed x15 seconds on L/R with FWW support and CGA for safety. ASSESSMENT: Patient demonstrates improved gait mechanics, including pacing and stability with the addition of FWW support. He was able to tolerate a progression in gait distance without c/o fatigue nor SOB. PLAN: Continue with gait training with FWW for continued improvement of stability with mobility for safety. TREATMENT CODE/TIME: Session 1: 28 minutes; [id number], [id number] (07:38) Session 2: 22 minutes; [id number] (12:36)
[2022-01-27 08:27] LABS: Magnesium 1.6 mg/dL (1.8-2.4); Vitamin B12 230 pg/mL (193-986)
[2022-01-27] MEDS: Docusate Sodium 100 MG/10 ML CUP JT ×2 (09:07→20:21)
[2022-01-27] MEDS: Triamcinolone 0.1% CR 15 GM TUBE TP ×2 (09:07→20:21)
[2022-01-27] MEDS: Apixaban 5 MG TAB PO ×2 (09:08→20:20)
[2022-01-27 09:17] LABS: Vancomycin, Trough 19.8 ug/mL (10.0-20.0)
[2022-01-27] MEDS: VANCOMYCIN/WATER (PEG) 1 GM/200 ML BAG IVPB (10:27)
[2022-01-27 12:15] LABS: Procalcitonin < 0.1 ng/mL
[2022-01-27] MEDS: Normal Saline Flush 10 ML SYR IVP ×2 (14:01→17:41)
--- NOTE | 2022-01-27 15:22 | W.PM.PROGNOT ---
Date of Service Date of service: 01/27/22 Time of Service: 15:22 Assessment and Plan Assessment and plan (1) Acute ischemic multifocal multiple vascular territories stroke: Status: Acute Assessment and plan: continue apixaban Will need a BHAVIN as outpatient and 30 day cardiac event recorder C/s PT, OT, speech. Professional time spent interviewing and examining patient, discussion of goals of care with hospital team (care management, nursing and consulting professionals) was 45 minutes. (2) Encephalopathy: Status: Acute Assessment and plan: unclear whether this is due to multiple CVA's (occipital and parietal lobes); doubt sepis (negative LP and neg. blood cultures and normal procalcitonin); may be medicaiton related to oxycodone however, he continues to experience some visual hallucinations. He has not been sleeping well. He also was started on tramadol for pain. I will stop his tramadol. Trial of low dose remeron at night to improve his sleep. As there is no evidence for sepsis/infection I will dc his antibiotics. Dr. Valentino suspects some underlying dementia which probably was unmasked by his CVA (3) Acute urinary retention: Status: Acute Assessment and plan: S/p mane Evaluated by urology: continue bowel regimen, avoid alpha blockers. Voiding trial later on this admission. 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 Obtain speech therapy c/s. Continue tube feeding. Anticoagulation ok per oncology. (5) Elevated troponin: Status: Acute Assessment and plan: probably demand ischemia however, I do not feel that this was sepsis, troponin are trending down but have not been repeated since admission; I will recheck them today as they were plateaued at 451 and 421. Echo was technically difficult but did not show any gross dysfunction of LV or RV. He should have follow up BHAVIN to look for thrombus and to clear his aortic arch (6) DVT prophylaxis: Status: Acute Assessment and plan: Started on therapeutic anticoagulation. (7) Discharge planning issues: Status: Acute Assessment and plan: DNR/DNI PT, OT, speech, palliative care consulted. I anticipate dc home in the next 24 to 48 hr. Subjective Subjective Interval history since last seen: Patient still w/ visual hallucinations, seeing cobwebs on TV and spiders; however, is concerned that he also is still confused as to where he is at. The patient had a conversation w/ his primary nurse who indicated that he is from [place], [place] and the patient has been fixated on thinking that he is in a hospital in [place], however, later in the same conversation he indicated that [facility] needs to clean and paint the room. Patient also complains of some throat pain from mucositis. Exam Narrative Exam Narrative: Patient was sleeping when I walked into the room and had conversation w/ his . He awakens easily and is oriented to person and circumstances but initially was confused as to his location until he was re-oriented by myself HEENT: remarkable for mucositis of the soft palate; no exudate just red sores Lungs: clear Heart: RRR Left infraclavicular area w/ mediport which does not appear to be red nor is there any induration Arms: no sores on right arm, left arm w/ superficial bruising over prior iv site but no induration or redness Abdomen: PEG tube in place; no distension or discomfort mane draining clear yellow urine Objective Last Vital Signs Temp 36.8 C 01/27/22 11:09 Pulse 94 H 01/27/22 11:09 Resp 18 01/27/22 11:09 BP 120/72 01/27/22 11:09 Pulse Ox 95 01/27/22 11:09 Laboratory Results - last 24 hr 01/27/22 01/27/22 01/27/22 06:50 06:50 06:50 WBC RBC Hgb Hct MCV MCH MCHC RDW Plt Count MPV Immature Gran % Neutrophils % Lymphocytes % Monocytes % Eosinophils % Basophils % Nucleated RBC % Absolute Neutrophils Absolute Lymphocytes Absolute Monocytes Absolute Eosinophils Absolute Basophils Sodium 133 L Potassium 3.5 Chloride 101 Carbon Dioxide 27.7 Anion Gap 4.3 BUN 24 H Creatinine 0.9 Est GFR (CKD-EPI 2020) 84.22 Glucose 163 H Hemoglobin A1c 6.6 H Calcium 8.5 Magnesium 1.6 L Vitamin B12 230 Procalcitonin Vancomycin Trough 01/27/22 01/27/22 01/27/22 06:50 08:57 08:57 WBC 3.39 L RBC 3.37 L Hgb 10.7 L Hct 31.7 L MCV 94 MCH 31.8 MCHC 33.8 RDW 15.3 H Plt Count 151 MPV 9.4 Immature Gran % 0.3 Neutrophils % 79.0 Lymphocytes % 5.6 Monocytes % 14.2 Eosinophils % 0.6 Basophils % 0.3 Nucleated RBC % 0.0 Absolute Neutrophils 2.68 Absolute Lymphocytes 0.19 L Absolute Monocytes 0.48 Absolute Eosinophils 0.02 Absolute Basophils 0.01 Sodium Potassium Chloride Carbon Dioxide Anion Gap BUN Creatinine Est GFR (CKD-EPI 2020) Glucose Hemoglobin A1c Calcium Magnesium Vitamin B12 Procalcitonin < 0.1 Vancomycin Trough 19.8
--- NOTE | 2022-01-27 16:19 | CMPROGNOTE_ITS ---
- If Service Date Differs Date of service: 01/27/22 Time of Service: 16:19 Care Management Progress Note S/O: Per report, Pino had a brain MRI yesterday that revealed multiple areas of punctate ischemia involving all four vascular territories. It is unclear if this is the cause of his symptoms. He continues to hallucinate, and has had periods of confusion. His medications are being adjusted and he is not medically cleared for discharge. CM will continue to follow. A: Pino is an 86 year old male admitted to [facility] on 01/24/22 for sepsis, encephalopathy, elevated troponin. P: Pino will likely be discharged home with no new services. He will follow up with his community providers and plan of care and transport with family. CM will continue to support Pino and assess for ongoing discharge concerns.
--- NOTE | 2022-01-27 16:40 | W.PM.PROGNOT ---
Date of Service Date of service: 01/27/22 Time of Service: 16:40 Assessment and Plan Assessment and plan (1) Acute ischemic multifocal multiple vascular territories stroke: Status: Acute (2) Altered mental state: Status: Acute Assessment and plan: #1. Stroke. Mr. Wong was admitted with a constellation of symptoms including AMS, hypoxia, urinary obstruction, and transient low grade fever, likely due to opioid toxicity. On 01/25/22, he had a hypotensive episode during which he had transient R hemiparesis of the face and arm. He had a brain MRI which showed multiple areas of punctate ischemia involving all 4 vascular territories. It is unclear if any of these are causing him any symptoms, except on 01/24/22 when he became hypotensive and thus manifested the ischemia/created a penumbra. Most likely etiology of his strokes is due to cancer state and dehydration causing a coagulopathy. A cardiac (afib) or arch source remains in the differential. He has a new diagnosis of diabetes type 2. Work-up: -BHAVIN - outpatient as not done here and only if able to tolerate -Telemetry with extended 30 day cardiac monitoring as an outpatient Medications: -apixaban 5mg BID -LDL already at goal and given mechanism of action, unclear role of statin at this time; Other: -Allow permissive hypertension; avoid hypotension -Physical therapy for leg weakness, gait training -Occupation therapy for upper extremity weakness, activities of daily living -Speech therapy for speech and swallow -Nutrition consult to change tube feed formula #2. Essential Tremor. Monitor. Consider treatment as an outpatient. #3. Suspected dementia. No obvious cognitive decline prior to cancer/hospitalization, but cognitive burden at home is extremely low. Suspect he has dementia. Agree with mirtazapine for appetite stimulant, mood, and sleep. B12 level low. Please supplement with 1000mg daily. He should follow-up in the neurology clinic in 4-6 weeks. Please call sooner with any concerns. Subjective Subjective Interval history since last seen: Confused today with VH. Directable. Not agitated. Not sleeping well? Also, tonsillar pain returning. Now on apixaban for secondary stroke prevention. B12 (01/27/22): 230 A1c (01/27/22): 6.6 - new diagnosis Exam Narrative Exam Narrative: Physical Exam: Constitutional: Patient of apparent stated age, well nourished, well developed, no acute distress Neuro: MS/Language/Speech: Alert, oriented to self only, clear language (fluency and comprehension - follows simple commands), mild dysarthria Motor: Normal bulk and tone. Moving all extremities equally. Coordination: Finger to nose performed without dysmetria Limited exam as patient currently undergoing ST evaluation. Objective Last Vital Signs Temp 98.2 F 01/27/22 11:09 Pulse 94 H 01/27/22 11:09 Resp 18 01/27/22 11:09 BP 120/72 01/27/22 11:09 Pulse Ox 95 01/27/22 11:09 Laboratory Results - last 24 hr 01/27/22 01/27/22 01/27/22 06:50 06:50 06:50 WBC RBC Hgb Hct MCV MCH MCHC RDW Plt Count MPV Immature Gran % Neutrophils % Lymphocytes % Monocytes % Eosinophils % Basophils % Nucleated RBC % Absolute Neutrophils Absolute Lymphocytes Absolute Monocytes Absolute Eosinophils Absolute Basophils Sodium 133 L Potassium 3.5 Chloride 101 Carbon Dioxide 27.7 Anion Gap 4.3 BUN 24 H Creatinine 0.9 Est GFR (CKD-EPI 2020) 84.22 Glucose 163 H Hemoglobin A1c 6.6 H Calcium 8.5 Magnesium 1.6 L Vitamin B12 230 Procalcitonin Vancomycin Trough 01/27/22 01/27/22 01/27/22 06:50 08:57 08:57 WBC 3.39 L RBC 3.37 L Hgb 10.7 L Hct 31.7 L MCV 94 MCH 31.8 MCHC 33.8 RDW 15.3 H Plt Count 151 MPV 9.4 Immature Gran % 0.3 Neutrophils % 79.0 Lymphocytes % 5.6 Monocytes % 14.2 Eosinophils % 0.6 Basophils % 0.3 Nucleated RBC % 0.0 Absolute Neutrophils 2.68 Absolute Lymphocytes 0.19 L Absolute Monocytes 0.48 Absolute Eosinophils 0.02 Absolute Basophils 0.01 Sodium Potassium Chloride Carbon Dioxide Anion Gap BUN Creatinine Est GFR (CKD-EPI 2020) Glucose Hemoglobin A1c Calcium Magnesium Vitamin B12 Procalcitonin < 0.1 Vancomycin Trough 19.8
--- NOTE | 2022-01-27 16:53 | W.SPSTE ---
Date of service: 01/27/22 Time of Service: 03:45 Subjective Patient was contacted at bedside with present this date for clinical swallow exam and motor speech screening. Patient reports in recent weeks taking only sips of water throughout the day; I couldn't drink much before I would start coughing. Regarding speech, his states he sounds a little thicker with a deeper voice and possible reduced articulatory precision but still very easy to understand. She reports this was true prior to events leading to hospitalization and likely secondary to radiation effects, opioids, etc. Patient uses Healios(TM) supplement for mucosa. Oral & throat pain: 07/06 (worse than yesterday) HPI: Pino Wong is an 86 year-old with current bilateral synchronous tonsilar cancer currently undergoing XRT and chemotherapy (cisplatin with complications of peripheral neuropathy for which dose has been reduced), complicated by nausea and pain for which he has been taking opioids. He has PEG tube which has been his primary source of nutrition for several weeks now. He has BPH s/p TURP, renal stones, Gilbert syndrome, hyperlipidemia. He was brought to ER by EMS due to altered mental status and not following commands. Found upon arrival to be hypoxic, low grade fever, volitile mental status, and urinary outlet obstruction with hydronephrosis thought to be related to opioid toxicity. Mentation improving this hospitalization, until 01/25 he was noted to have acute transient R face and arm weakness, slumped, and not following commands. MRI brain revealed multifocal punctate ischemic infarcts of varying ages in the bilateral cerebellum, bilateral occipital lobes, and bilateral basal ganglia. Per neurology: Most likely etiology of his strokes is due to cancer state and dehydration causing a coagulopathy.? A cardiac (afib) or arch source remains in the differential.? He has a new diagnosis of diabetes type 2. Work-up: -Labs (01/24/22): W 2.50, Hgb 11.5, Na 134, BUN 26, Cr 1.2, Trop 451 -> 421, CK 44 and 52, procalcitonin <0.1, TSH 1.40, UA ok -LP (01/24/22): W2, R4, G66, P44; neg enterovirus and cryptococcus; cx pending but NGTD -CTH (01/24/22): Moderate cerebral atrophy and chronic white matter changes. I reviewed these images personally and this is my personal interpretation.? -CTH (): ?old L pontine infarct, otherwise unchanged from previous. I reviewed these images personally and this is my personal interpretation.? -CTA head/neck (01/25/22): no significant stenosis. I reviewed these images personally and this is my personal interpretation.? -MRI Brain (01/26/22): multifocal punctate ischemic infarcts of varying ages in the bilateral cerebellum, bilateral occipital lobes, and bilateral basal ganglia.? Mild-moderate chronic vascular changes and cerebral atrophy. I reviewed these images personally and this is my personal interpretation.? 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 Cedillo by Dr Francoonsillar mass (Acute) Dyspnea on exertion (Acute) Hyperlipidemia (Acute) Generalized osteoarthritis (Acute) Medical History? Benign prostatic hyperplasia microwave TUR Celiac disease Gastric motor function disorder Inflamed seborrheic keratosis Kid[place]03/03/07[place], several recurrancesPolyp of colon Retinal artery branch occlusion Surgical History? Colonoscopy - MAC (~2006) NEG BUT + family hxCystoscopy History of transurethral resection of prostate Replacement of total knee joint x 2Status post cystoscopy Status post total knee replacement bilateralTransurethral prostatectomy Objective Objective Mental status: Some confusion, partially oriented but receptive to reorientation; reporting some visual hallucinations this date. 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 Speech: 100% intelligible, no overt evidence of dysarthria or motor speech disturbance, though per , patient's speech is a little thicker. though she admits this was also true prior to hospitalization likely in setting of pain and radiation effects. Language: WFL Oral/Motor exam: Mucosa: Some red and patchy ulcerations noted. Appears farily moist following oral care. Oral care: Fair; patient reports none performed this date; performing oral care this visit with assist from . Partially edentulous CN V: Impaired vertical mandibular ROM (mild) CN VII ? Labial/Facial: WFL CN IX ? PalateWFL CN X ? Laryngeal Vocal quality: Mild Rough Volitional cough Sharp & strong CN XII ? Lingual mild reduced strength/ROM, patient reports secondary to pain Volitional Swallow Suspect reduced laryngeal elevation Suspect delayed onset of swallow - improved with cues for fast swallow in setting of pain PO trials: ice chips X5, thin liquid (water) via tsp X7, single sip via straw (self selected) x5 Oral phase: trace oral residue, suspect delayed A/P transit/lingual motion Pharyngeal Phase: Voice remains dry/clear throughout. Patient with delayed throat clear and intermittent delayed dry-sounding cough, increases as # of trials increases. 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 Patient is able to tolerate limited trials of thin liquid and puree consistencies this date, with intermittent delayed coughing. While he is at high risk of aspiration in setting of oral-pharyngeal changes secondary to XRT, and possible new changes secondary to CVA, it is important that he begins to resume small amounts of PO for oral-pharyngeal rehabilitation as pain allows. The importance of oral care in preventing pulmonary complications was covered and patient/caregiver verbalized understandning of this rationale and instructions to complete oral care using friction on all oral structures Q3-4 hours and before/after PO intake. PO trials of water, pudding/applesauce ok in limited quantities as long as oral care diligently performed. ERECTING ENGINEER to f/u with patient to re-assess tolerance tomorrow morning and to provide instructions for oral-pharyngeal exercise and stretches to promote motility and reduce effects of post-radiation fibrosis. May consider MBSS if availability tomorrow and significant concern is present, however, typically we would wait several weeks after completion of radiation therapy to establish level of function after most mucosal healing and resolution of pain has occurred. DISCHARGE: Patient to be followed by outpatient ERECTING ENGINEER via [facility] once home, if appropriate for half-way/rehab, he should be followed by ERECTING ENGINEER there. Recommendations: PO INTAKE FOR TRIALS/COMFORT ONLY, CONTINUE ENTERAL FEEDING ROUTE FOR PRIMARY NUTRITION ORDER AT THIS TIME IDDSI Level(s) for PO TRIALS - SUPERVISED/ASSISTED SOLIDS 4-Pureed Solids - reintroduce PO intake in conservative amounts at first, patient still with Tube Feeds primarily for nutrition and safety. LIQUIDS 0-Thin Liquids Medication Intake: Crushed with 4-Puree and wash with 0-Thin Liquids OR Via Tube, Alter medications only as advised by MD or Pharmacist RISK MANAGEMENT: HOB upright as tolerated; upright for all PO intake. Encourage physical mobility as tolerated. Oral hygiene q4h/every 4 hours and before/after PO intake, using friction with toothbrush on all oral structures as tolerated ? Level of Assistance/Supervision: Assistive feeding only by trained staff/family PO intake only when awake/alert? Strategies/Adaptations/Assistive Equipment: Reduce auditory and/or visual distractions when eating, Provide verbal and/or visual cues to use recommended strategies, Small sips and bites when eating, Slow rate of intake, Swallow between bites, Alternate intake of liquids and solids, Gentle throat clear after sips of liquid. Posture/Positioning Needs: Maintain upright position at least 30 minutes after meals, Avoid meals/snacks 2-3 hours prior to reclining/sleeping, Sleep with head of bed elevated to reduce likelihood of nocturnal reflux Plan ERECTING ENGINEER to follow while on unit Short Term Goals: Pt will tolerate trials of puree and thin liquids without overt s/sx aspiration and with consistent use of safe swallow strategies. Pt will implement risk management strategies including diligent oral care to reduce risk of pulmonary complication in setting of high aspiration risk. CODIN Clinical Swallow Evaluation; 35 minutes Coding
--- NOTE | 2022-01-27 17:30 | CHAPLAIN ---
I introduced myself to Pino and his . He was pleasant, but not interested in further conversation.
[2022-01-27] MEDS: Cyanocobalamin 1000 MCG/ML VIAL IM/SC (17:40)
[2022-01-27] MEDS: Pantoprazole 40 MG VIAL IVP (17:40)
[2022-01-27] MEDS: MAGNESIUM SULFATE 2 GM/50 ML BAG IVPB (17:50)
[2022-01-27 18:12] LABS: Lab Add On Test DONE
[2022-01-27 18:42] LABS: Troponin I 151 ng/L (<or=60)
[2022-01-27] MEDS: ACETAMINOPHEN 1,000 MG/100 ML BTL 400 MG IVPB (20:15)
[2022-01-27] MEDS: Magnesium Oxide 400 MG TAB 800 MG JT (20:20)
[2022-01-27] MEDS: Mirtazapine 15 MG TAB PO (21:48)
[2022-01-28] VITALS (8 sets, daily range): BP systolic 123–155; BP diastolic 74–80; PULSE 85–99; RESP 17–20; TEMP 36.8–37.5; O2SAT 96–97
[2022-01-28] MEDS: Normal Saline Flush 10 ML SYR IVP ×2 (05:36→16:08)
[2022-01-28 06:54] LABS: Anion Gap 5.2 mmol/L (3-11); BUN 18 mg/dL (7-18); CO2 28.8 mmol/L (21.0-32.0); CREATININE 0.7 mg/dL (0.70-1.30); Chloride 105 mmol/L (98-107); Estimated GFR 90.86 (mL/min/1.73m2); Glucose 87 mg/dL (74-106); Potassium 3.6 mmol/L (3.5-5.1); Sodium 139 mmol/L (136-145)
[2022-01-28] MEDS: Docusate Sodium 100 MG/10 ML CUP JT (07:52)
[2022-01-28] MEDS: Magnesium Oxide 400 MG TAB 800 MG JT (07:53)
[2022-01-28] MEDS: Apixaban 5 MG TAB PO (07:53)
[2022-01-28] MEDS: Cyanocobalamin 1000 MCG/ML VIAL IM/SC (07:53)
[2022-01-28] MEDS: Triamcinolone 0.1% CR 15 GM TUBE TP (07:54)
--- NOTE | 2022-01-28 09:01 | OT.INIE ---
Occupational Therapy Notes Inpatient Occupational Therapy Evaluation Date: 01/28/22 Referring Doctor:Nely Menjivar MD OT Orders: Non urgent Precautions: Fall, standard, DNR/DNI PATIENT PROFILE/ADMITTING DIAGNOSIS: Pt is a 86 year old male who was admitted to Med Surg with the dx of ?management of sepis and encephalopathy following unresponsive episode at home. 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 Cedillo by Dr Posadaillar mass (Acute) Dyspnea on exertion (Acute) Hyperlipidemia (Acute) Generalized osteoarthritis (Acute) Medical History? Benign prostatic hyperplasia microwave TUR Celiac disease Gastric motor function disorder Inflamed seborrheic keratosis Kidney stone (03/03/07) 2020 in [place], several recurrancesPolyp of colon Retinal artery branch occlusion Surgical History? Colonoscopy - MAC (~2006) NEG BUT + family hxCystoscopy History of transurethral resection of prostate Replacement of total knee joint x 2Status post cystoscopy Status post total knee replacement bilateralTransurethral prostatectomy Social History/Home Situation: Pt lives in a private home with his . His does (A) him with his ADL/IADL routines. He does utilize a long handled shoe horn. Pt notes that he has a FWW at home, his just recently purchased one. He notes that he has a walk in shower, he states that he does not have a seat. OT and pts discuss that this would decrease pts fall risk. Pt is not able to perform his (B) LE dressing but does note that he could prior to his admission. His (A) With home care tasks like cooking, grocery shopping and laundry. Equipment owned/DME: FWW, Peg tube SUBJECTIVE: Pt and his are in the room when OT arrived. OT and pts discuss pts prior level of function vs. current level of function. Pts does note that pt is fairly (I) in his ADL routines. OBJECTIVE: General Observation: Pleasant, mane in place, IV in (R) UE, Peg tube Mental Status: Alert to name Pain: no c/o pain in (B) UE ROM: RUE AROM WFL L UE AROM WFL STRENGTH: RUE 4/5 throughout LUE 4/5 throughout FUNCTIONAL MOBILITY/ADLS: DRESSING Dressing LE OT educated and trained pt and his in use of sock aid, dressing stick. Pt was able to use dressing stick with min vc throughout.OT provided pt and with adaptive equipment and will monitor pts response to todays session. TOILETING NT EATING max (A) with direct feeding, food by mouth (I) BALANCE: Static sitting Normal Dynamic Sitting Normal SPECIAL TESTS: Daily Activity Limitations Standardized Measure [facility] AM -PAC ?6 clicks? Daily Activity Inpatient Short Form: Raw score: 15 Standardized score: 34.69 CMS score: 56.46% deficit INFORMED CONSENT/EDUCATION: Pt instructed in purpose of OT Consult and plan of care. ASSESSMENT: Patient is a 86-year-old male referred to occupational therapy services with diagnosis of ?management of sepis and encephalopathy following unresponsive episode at home. Patient presents with clinical signs and symptoms consistent with dx, as demonstrated by the following impairment level findings/ functional limitations: Impairments in ADL/IADL and leisure activities, decreased functional activity tolerance, decreased functional mobility required for ADL performance, decreased standing ADLs, fall risk, cognitive deficits/altered mental status. AMPAC score 15 Patient is assessed as a Moderate 53998 complexity based on the following: History: see above Examination: see functional limitations as noted above Presentation: evolving Decision Making: AMPAC score 15 GOALS Goals x1 week 1. Transfers (I) 2. Dressing mod (I) sitting in chair LE, (I) UE 3. Bathing seated position, (I) UE/LE 4. Toileting on toilet (I) PLAN OF CARE/TREATMENT PLAN: 1x/day, 5 days/ week x 1week Initiate Occupational Therapy Services for bathing, dressing, grooming, toileting, eating, transfer training. OT recommends a shower seat for safety during his bathing routine to decrease fall risk. DISCHARGE RECOMMENDATIONS Home with services when medically cleared per MD. TREATMENT TIME/MINUTES/CODES 28515, [id number], 20 minutes (08:40) Kellen Rios, OTR/L [facility]
--- NOTE | 2022-01-28 12:57 | PDOC.STREC ---
Date of service: 01/28/22 Time of Service: 12:58 Speech Therapy Recommendations Report ST Recommendations: NON-TREATMENT NOTE Per medical team, patient to discharge home this date. Per RN and Patient/, patient not tolerating PO trials well overnight. He is tired this date, supine and unwilling to participate in PO trials with [employer] this date or oral-pharyngeal exercise instructions. Provided handouts with recommended exercise routine to patient's and instructions to access instructional videos. Recommend small sips water only, with frequent oral care to reduce oral bacterial load. Trials of pureed solids or other should only be completed with [employer] at this time given increase in s/sx aspiration. Home Health [employer] services are recommended to initiate exercises at home and therapeutic PO trials. He should be referred for outpatient MBSS in several weeks once oral pain has largely subsided, or per treating [employer]'s discretion. Medication Intake:? Via tube RISK MANAGEMENT: HOB upright as tolerated; upright for all PO intake. Encourage physical mobility as tolerated. Oral hygiene q4h/every 4 hours and before/after PO intake, using friction with toothbrush on all oral structures as tolerated ? Level of Assistance/Supervision: Assistive feeding for trials other than thin liquids only by [employer] at this time PO intake only when awake/alert? Strategies/Adaptations/Assistive Equipment: Reduce auditory and/or visual distractions when eating, Provide verbal and/or visual cues to use recommended strategies, Small sips and bites when eating, Slow rate of intake, Swallow between bites, Alternate intake of liquids and solids, Gentle throat clear after sips of liquid. Posture/Positioning Needs: Maintain upright position at least 30 minutes after meals, Avoid meals/snacks 2-3 hours prior to reclining/sleeping, Sleep with head of bed elevated to reduce likelihood of nocturnal reflux Plan Patient to discharge home. Short Term Goals: Pt will tolerate trials of puree and thin liquids without overt s/sx aspiration and with consistent use of safe swallow strategies. IN PROGRESS Pt will implement risk management strategies including diligent oral care to reduce risk of pulmonary complication in setting of high aspiration risk. IN PROGRESS Coding
--- NOTE | 2022-01-28 14:46 | PT.INTREAT ---
Date of service: 01/28/22 Time of Service: 10:41 PT Notes Visit Reasons: Sepsis,Encephalopathy,Elevated Troponin,Obstructiv Inpatient Physical Therapy Treatment Note [facility] Date: 01/28/2022 PRECAUTIONS: Activity as tolerated, fall, seizure SUBJECTIVE: Pino is pleasant and agreeable to participating in PT. He is hopeful that he will be discharged to home later today. He is feeling better today. OBJECTIVE: PAIN: No c/o pain BED MOBILITY/TRANSFERS: Supine-sit: I Sit-supine: I Sit-stand: SBA Stand-sit: SBA GAIT Assistive Device: FWW Weight bearing: Full Assist: SBA Distance: 600' Deviation: Improved stability, steady gait and pacing, shoes donned ASSESSMENT: Patient demonstrates improved gait mechanics, including pacing and stability with the addition of FWW support. He was able to tolerate a progression in gait distance without c/o fatigue nor SOB. PLAN: Patient to discharge to home later today, per provider. Recommend follow up with PT for continued strengthening and balance retraining for safety. TREATMENT CODE/TIME: 19 minutes; 85687 (10:41)
--- NOTE | 2022-01-28 14:54 | DSE_ITS ---
Date of service: 01/28/22 Time of Service: 14:55 DS: Diagnosis Discharge Diagnosis (1) Acute ischemic multifocal multiple vascular territories stroke: Status: Acute (2) Encephalopathy: Status: Resolved (3) Acute urinary retention: Status: Resolved (4) Right tonsillar squamous cell carcinoma: Status: Acute (5) Elevated troponin: Status: Resolved Discharge Plan Disposition Patient Disposition: HOME W/HOME HEALTH SERVICE Condition: Improving Discharge Details Reason For Visit: Sepsis,Encephalopathy,Elevated Troponin,Obstructiv Admit Date/Time: 01/24/22 15:15 Admit Provider: Nely Menjivar Attending Provider: Nely Menjivar Primary Care Provider: [facility] Hospital Course Hospital Course: History of squamous of carcinoma of the tonsils on chemotherapy (cisplatin)/radiation last treatment 01/20/2022, has right chest [id number] in place, history of BPH status post TURP, chronic dysphagia, pain related to cancer currently treated with opioid therapy presented to the hospital with symptoms of acute confusion incoherent speech and poorly responsive to his . Per EMS in the ER patient had periods of agitation and hypoactive delirium. Patient had a fever of 39.0 on arrival to the emergency department. CT of the head showed no acute abnormality. Patient underwent lumbar puncture for spinal sampling. Results were not consistent with bacterial meningitis. Patient was started empirically on antibiotics including vancomycin and ceftriaxone. [id number] was cultured. CT findings also demonstrated severe bilateral hydronephrosis with distended bladder and obstruction at the level of the bladder outlet. Jimenez catheter was placed successfully. Patient was found to have elevated troponin level 451 and trended down to 421 with no symptoms of chest pain or pressure. CK level was negative. EKG showed no acute ischemia. Patient was admitted to the medical/surgical floor for presumptive treatment of sepsis and metabolic encephalopathy and acute urinary retention with type II demand ischemia manifested by elevated troponin levels. On 01/25/2022 patient had an episode of sudden onset right-sided facial and right upper extremity and truncal weakness while seated on the toilet. He was hypotensive with systolic pressures in the 70s. NIH stroke scale 6. Stat CT and CTA of the head and neck were ordered per stroke protocol. CTA of the head showed normal kiana of Castro. He has mild white matter changes with small vessel disease but no hemorrhage or mass. He has mild calcified plaques of both common carotid bulbs but no significant carotid stenosis. Subsequent MRI of the brain was performed and confirmed scattered focal foci of restricted diffusion defects in both cerebellar hemispheres including posterior and occipital and parietal regions as well as bilateral basal ganglia consistent with embolic lacunar infarcts. Patient was anticoagulated with apixaban. Neurology consultation was obtained with Dr. Jenny Valentino. See her note from 01/27/2022. Plans for outpatient BHAVIN. PT OT and speech therapy were consulted to evaluate and treat regarding speech and dysphagia as well as his generalized weakness. Because of his agitation as well as poor sleep he was started on mirtazapine. He was placed on B12 supplementation because of low normal levels of B12. Consideration was given for treatment of his essential tremors however Dr. Valentino decided to defer to outpatient follow-up. Previous lipid profile has been checked as recent as 3 months ago and showed he was at goal levels with an LDL of 78 total cholesterol 148. As such as statin was not added to his regimen. B12 level was found to be 230 pg/mL with a lower limit of being 193. Methylmalonic acid level was ordered. TSH was checked found to be normal at 1.46. Procalcitonin level was checked twice and found to be normal at less than 0.1. MRSA screen was negative and therefore vancomycin is discontinued. Blood cultures came back no growth. Patient was initially treated with ceftriaxone which was later changed to cefepime which after 4 days of antibiotics was discontinued. As part of stroke work-up glycohemoglobin A1c was checked found to be elevated 6.6% consistent with diabetes mellitus. As such she was started on metformin 500 mg twice daily discharge. On the night prior to discharge she was started on Remeron 15 mg nightly which improved his agitation and delirium. At discharge she was able to hold a normal conversation with his was not hallucinating and seems to be fairly oriented. He was discharged home in markedly improved condition. Discharge medications include Eliquis 5 g twice daily, tramadol 50 mg every 6 hours as needed pain, metformin 500 mg p.o. twice daily to be given per his PEG tube, Remeron 15 mg nightly for his PEG tube viscous lidocaine 2% solution to be applied to his left TID. Augusto, B12 lozenges 1 sublingual daily. Follow-up to be with Dr. Valentino in 4 weeks. Patient is to be referred for outpatient BHAVIN. Cardiac event recorder to be ordered as an outpatient. Home Meds and New Rx's Prescriptions: New Eliquis 5 mg Tablet 5 mg PO BID Qty: 60 0RF tramadol [Qdolo] 5 mg/mL solution 50 mg PO Q6H PRNQty: 200 0RF metformin [Riomet] 500 mg/5 mL solution 500 mg PO BID Qty: 250 0RF mirtazapine [Remeron SolTab] 15 mg tablet,disintegrating 15 mg PO HS Qty: 30 0RF lidocaine HCl [Lidocaine Viscous] 2 % solution 1 applic mucous membrane TID PRNQty: 100 0RF Rx Instructions: apply to soft palate tid prn pain B12 5,000-100 mcg lozenge 1 modesto sublingual DAILY AM Qty: 60 0RF Continued triamcinolone acetonide 0.1 % cream 1 applic Topical BID Qty: 30 2RF Rx Instructions: Apply to rash ondansetron 8 mg Tablet,Disintegrating 8 mg PO Q8H PRN Discontinued oxycodone 5 mg/5 mL solution 10 ml feeding tube [id number] Rx Instructions: every 4 hours for pain. No Action metformin 500 mg tablet 500 mg PO BID Qty: 60 0RF Discharge Instructions Instructions: Metformin (By mouth), Mirtazapine (By mouth), Apixaban (By mouth), Type 2 Diabetes in Adults: New Diagnosis (DC), Ischemic Stroke (DC), Aspiration Precautions (DC) Additional Instructions: You have been diagnosed w/ multiple small strokes in various locations in the brain consistent w/ embolic ischemic strokes. For this you have been put on apixaban, an anticoagulant. you should have a follow up 30 day cardiac event monitor looking for atrial fibrillation. Dr. Valentino wants to follow up w/ you in a month. Her office should call you for the appointment. You were also fo und to be diabetic w/ a glycohemoglobin A1c of 6.6% which is just at the threshold for diabetes. You are being prescribed an oral diabetic agent, metformin. You should follow up in the diabetes education department w/ [facility] and you should get a glucometer at your pharmacy to monitor your blood sugars twice a day at least 3 days per week, preferably daily. Lastly, you were started on mirtazapine (Remeron) which can help w/ hallucinations as well as sleep. You should take this at night. Your oxycodone has been replaced w/ tramadol for pain. You also have been prescribed viscous xylocaine to help numb the soreness of your mucositis of your throat. Stand Alone Forms: Nursing Discharge Form Referrals: Amelia Gomes NP [Primary Care Provider] - 02/12/22 1:20 pm Jenny Valentino MD [ [facility] STAFF PHYSICIAN] - (follow up in 4 weeks; office will call you) Activity:: Activity as Tolerated Equipment/Supplies:: No Equipment Needed Diet:: PEG tube Discharge Orders Discharge Orders: Discharge Order (Routine); Ordered 01/28/22 Ordered By: Bud Palacios Other Ambulatory Orders: Cardiac Event Recorder (Routine) Timeframe: 1 Day Facility: [facility] - Location: Respiratory Therapy Ordered By: Bud Palacios Discharge Data Discharge Date/Time-TO BE ENTERED AT DEPARTURE: 01/28/22 16:58 DS: Summary Time Spent with Patient providing and/or coordinating discharge services: Less than 30 minutes Status at Discharge Functional status at discharge: uses cane/walker Overall status at discharge: patient is progressing back to baseline Mental Status: other Speech and Movement: speech and movement normal Mood: other Affect: normal affect Exam Psych Mental Status: other Speech and Movement: speech and movement normal Mood: other Affect: normal affect DS: Data Vitals/I&O Vitals and I&O: Vital Signs Temperature 37.0 C 01/28/22 11:20 Temperature Source Tympanic 01/28/22 11:20 Pulse 85 01/28/22 11:20 Pulse Rhythm Regular 01/28/22 08:48 Pulse 96 H 01/24/22 16:16 Respiratory Rate 18 01/28/22 11:20 Respiratory Effort 01/28/22 08:48 Respiratory Depth Normal 01/28/22 08:48 Respiratory Pattern Normal 01/28/22 08:48 Blood Pressure 123/74 01/28/22 11:20 Blood Pressure Mean 103 01/24/22 16:16 Blood Pressure Position Supine 01/24/22 03:32 Pulse Oximetry 96 01/28/22 11:20 Oxygen Delivery Method Room Air 01/28/22 11:20 Oxygen Flow Rate 0 01/28/22 11:20 Pain Level 5 01/28/22 11:20 Comment 01/28/22 07:39 Intake & Output 01/27/22 01/28/22 01/28/22 23:59 11:59 23:59 Intake Total 1690 / 2280 500 / 750 250 / 750 Output Total 1105 / 2155 805 / 1005 200 / 1005 Balance 585 / 125 -305 / -255 50 / -255 Weight 78.2 kg Intake: IV 960 / 1060 Intake, Tube Feeding Amount 730 / 1220 500 / 750 250 / 750 Output: Urine 1100 / 2150 800 / 1000 200 / 1000 Output, Residual 5 / 5 5 / 5 Other: Urine Color Pale Yellow Yellow Yellow Urine Appearance Clear Clear Comment pT voided in the toilet. Stool Size Moderate Moderate Stool Characteristics Soft Brown Formed Brown Voiding Methods Toilet Data Completed and Pending Labs on day of discharge: Labs from last 24 hours 01/28/22 01/28/22 01/27/22 05:40 05:40 06:50 Sodium 139 Potassium 3.6 Chloride 105 Carbon Dioxide 28.8 Anion Gap 5.2 BUN 18 Creatinine 0.7 Est GFR (CKD-EPI 2020) 90.86 Glucose 87 Calcium 8.0 L Magnesium 2.0 Troponin I 151 H* Methylmalonic Acid Pending Add-On Test Request 01/27/22 06:50 Sodium Potassium Chloride Carbon Dioxide Anion Gap BUN Creatinine Est GFR (CKD-EPI 2020) Glucose Calcium Magnesium Troponin I Methylmalonic Acid Add-On Test Request DONE Preliminary micro results at discharge 01/24/22 15:15 Blood Culture - Preliminary Blood NO GROWTH 72 HOURS 01/24/22 13:37 Blood Culture - Preliminary Blood NO GROWTH 72 HOURS PFSH All Active Problems (Updated 01/29/22 @ 00:10 by MIO MCDONNELL) DNR (do not resuscitate) (Acute) Cancer related pain (Acute) Palliative care encounter (Acute) Acute ischemic multifocal multiple vascular territories stroke (Acute) Gout (Chronic) 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 Cedillo by Dr Pena Tonsillar mass (Acute) Dyspnea on exertion (Acute) Hyperlipidemia (Acute) Generalized osteoarthritis (Acute) Medical History Benign prostatic hyperplasia microwave TUR Celiac disease Gastric motor function disorder Inflamed seborrheic keratosis Kidney stone (03/03/07) 2020 in [place], several recurrances Polyp of colon Retinal artery branch occlusion Surgical History Colonoscopy - MAC (~2006) NEG BUT + family hx Cystoscopy History of transurethral resection of prostate Replacement of total knee joint x 2 Status post cystoscopy Status post total knee replacement bilateral Transurethral prostatectomy Family History Mother , 65 Heart disease Father , 59 Personal history of malignant neoplasm COLON Sister Heart disease Social History Smoking/Tobacco Use Status: Never Smoking risk assessment performed?: Yes Alcohol Intake: former Drug use: Never Substance use type: does not use Caregiver/Support person: No Household members: spouse Housing: house Pets and animals: Yes Pets and animals: dog(s) Sexually active: Yes Do you think of yourself as: straight/heterosexual Current gender identity: male What is your relationship status?: Do you belong to any clubs or organized social groups?: yes Panel score (0-1 are the most socially isolated patients): 2 What type of physical activity do you participate in: none Special kena needs: No Seatbelt use: always Drive intox or ride w/intox emergency detail driver: No Do you feel safe in your relationship?: Yes
--- NOTE | 2022-01-28 15:42 | PCNE_ITS ---
Date of service: 01/28/22 Time of Service: 14:45 History of Present Illness Narrative: Mr. Pringle is an 86 y/o M currently inpt at [facility]; PMHx sig for squamous cell carinoma of R tonsil, acute ischemic multifocal vascular stroke, gout, HLD, osteoarthritis; present /[facility] Hospital course: Pino presented to the ED on on 01/24 after an unresponsive episode at home. The initial ED work-up was concerning for sepsis w/encephalopathy and hallucinations, he was started on vancomycin and cefepime. He was transitioned to inpatient for monitoring and further work-up. He was put on stroke alert and MRI found acute ischemic multifocal multiple vascular stroke, he was started on apixaban. Sepsis and bacterial meningitis ruled out. At time of palliative care visit patient is getting ready for discharge with new home health services with PT OT and speech therapy. He will have a 30-day BHAIVN upon discharge to be followed up on outpatient. To be followed up outpatient by neurology, recommended 4 to 6-week follow-up. Mirtazapine was started for appetite, mood and sleep. Pino currently followed by [facility] for squamous cell carcinoma of the right tonsil, he just completed a 7-week course of radiation and chemotherapy with cisplatin. He is followed by Dr. Sy and Dr. Rose at [facility]. He has significant oral and throat pain related to his cancer and treatments, has been tapered off of his opioid therapies due to concerns of opioid toxicity. He has been evaluated by speech therapy while in the hospital and will continue to follow speech therapy upon discharge, the recommendation is to continue small p.o. amounts for swallowing rehabilitation. Pino has a PEG feeding tube. Pino lives at home with his Angelina in [facility]. He is looking f orward to returning home, and prefers to defer palliative, for sessions until after his follow-up with oncology. At this point they are directing the medical care he receives. He has previously completed an advanced directive in 2013. His chart states that he is a DNR?DNI, need to follow-up; [facility] listed as H[facility], son Espinoza as co-agent Visit ended prematurely due to respiratory therapy coming in for discharge instructions Assessment and Plan Assessment and plan (1) Palliative care encounter: Status: Acute Assessment and plan: PC to continue to follow outpatient to continue to review ACP, AD and follow up on care plan s/p [facility] f/u visit visit cut prematurely d/t discharge coordination education (2) Acute ischemic multifocal multiple vascular territories stroke: Status: Acute Assessment and plan: continue apixaban, BHAVIN outpatient, 30 day cardiac event recorder [facility] PT/OT/ST on discharge [employer] to follow up outpatient neuro to follow up outpatient 4-6wks (3) Encephalopathy: Status: Acute Assessment and plan: unclear etiology, multiple CVAs, low suspicion sepsis (negative LP and neg blood cxs, normal procalcitonin),abx d/c'd; potentialy r/t opioid however contined sxs despite tapered therapies; suspect underlying dementia low dose remeron added for sleep (4) Acute urinary retention: Status: Acute Assessment and plan: mane d/c'd urology evaluated, avoid alpha blockers (5) Right tonsillar squamous cell carcinoma: Status: Acute Assessment and plan: f/b [facility] completed 7 wks chemo and RT Dr. Sy and Dr. Owens to follow at [facility], unsure of f/u visits (6) Cancer related pain: Status: Acute Assessment and plan: continue to evaluate, opioids d/c'd d/t concern for toxicity (7) DNR (do not resuscitate): Status: Acute Assessment and plan: need for review and update PRN no COLST on file Review of Systems Narrative: See HPI PFSH All Active Problems (Updated 01/28/22 @ 16:00 by Christie Dalal NP) DNR (do not resuscitate) (Acute) Cancer related pain (Acute) Palliative care encounter (Acute) Acute ischemic multifocal multiple vascular territories stroke (Acute) Elevated troponin (Acute) Discharge planning issues (Acute) DVT prophylaxis (Acute) Encephalopathy (Acute) Sepsis (Acute) Altered mental state (Acute) Fever (Acute) Acute urinary retention (Acute) Gout (Chronic) 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 Cedillo by Dr Pena Tonsillar mass (Acute) Dyspnea on exertion (Acute) Hyperlipidemia (Acute) Generalized osteoarthritis (Acute) Medical History Benign prostatic hyperplasia microwave TUR Celiac disease Gastric motor function disorder Inflamed seborrheic keratosis Kidney stone (03/03/07) 2020 in [place], several recurrances Polyp of colon Retinal artery branch occlusion Surgical History Colonoscopy - MAC (~2006) NEG BUT + family hx Cystoscopy History of transurethral resection of prostate Replacement of total knee joint x 2 Status post cystoscopy Status post total knee replacement bilateral Transurethral prostatectomy Family History Mother , 65 Heart disease Father , 59 Personal history of malignant neoplasm COLON Sister Heart disease Social History Smoking/Tobacco Use Status: Never Smoking risk assessment performed?: Yes Alcohol Intake: former Drug use: Never Substance use type: does not use Caregiver/Support person: No Household members: spouse Housing: house Pets and animals: Yes Pets and animals: dog(s) Sexually active: Yes Do you think of yourself as: straight/heterosexual Current gender identity: male What is your relationship status?: Do you belong to any clubs or organized social groups?: yes Panel score (0-1 are the most socially isolated patients): 2 What type of physical activity do you participate in: none Special kena needs: No Seatbelt use: always Drive intox or ride w/intox service parts driver: No Do you feel safe in your relationship?: Yes Exam Const General: comfortable and no acute distress Nutritional Appearance: well nourished Other: lying in bed at time of visit HENDC Head: normocephalic and atraumatic Resp Effort & Inspection: normal respiratory effort, able to speak in complete sentences, no audible wheezes and no cough Psych Appearance: grossly normal Speech and Movement: speech clear Affect: normal affect and indifferent Attitude: cooperative Results Last Vital Signs Temp 99.5 F 01/28/22 15:26 Pulse 96 H 01/28/22 15:26 Resp 18 01/28/22 15:26 BP 151/79 H 01/28/22 15:26 Pulse Ox 97 01/28/22 15:26 Labs Result diagrams: 01/27/22 06:50 01/28/22 05:40 Labs: Laboratory Results - last 24 hr 01/27/22 01/27/22 01/28/22 06:50 06:50 05:40 Sodium 139 Potassium 3.6 Chloride 105 Carbon Dioxide 28.8 Anion Gap 5.2 BUN 18 Creatinine 0.7 Est GFR (CKD-EPI 2020) 90.86 Glucose 87 Calcium 8.0 L Magnesium 2.0 Troponin I 151 H* Add-On Test Request DONE
[2022-01-28] MEDS: Heparin 500 UNITS/5 ML SYRINGE IVP (16:08)
--- NOTE | 2022-01-28 16:39 | PDOC.CMDIS ---
- If Service Date Differs Date of service: 01/28/22 Time of Service: 16:39 LACE Index Scoring Tool - Questions: Length of Stay (in days): 4 - 6 Acuity (Admit via E.D.?): Yes Comorbidities: Any Tumor E.D. Visits: 1 - Answers: Total Score: 10 Risk of Readmission: High Risk Care Management Discharge Reason for Hospitalization: Sepsis Discharge Plan: Pino will return home today with new orders for HH PT, OT, ST. His will drive him home via private vehicle. He will follow up with his PCP and discharge plan of care. He is happy to be going home. Patient/Family Education Needs: Review discharge instructions and limitations, discussion of self care needs including ask me three. Services Needed at Discharge: Home Health Care Services (PT, OT, ST)
--- NOTE | 2022-01-28 16:53 | PDOC.HHF2F_ITS ---
Home Health Certification Home Health Certification: 1. Encounter Date and Reason I certify that Pino Wong was seen by Bud Palacios on 01/28/22 and that I had a [id number] encounter with this patient that meets the physician face to face encounter requirements. 2. Clinical Findings Supporting Skilled Need and Homebound Status I certify that home health services are medically necessary, include either intermittent nursing home and/or physical/speech therapy, and that this p atient is homebound in that absences from the home require considerable and taxing effort and are infrequent or of short duration, or are attributable to the need to receive medical care. [X] (a) Attached documentation from encounter provides clinical findings supporting skilled need and homebound status (including what assistance patient requires to leave the home). The encounter with the patient was in whole, or in part, for the following medical condition, which is the primary reason for home health care: ,Encephalopathy,Elevated Troponin, CVA Jail:nursing to evaluate and treat for recent stroke, confusion, generalized weakness Physical Therapy: P.T. and O.T. to evaluate and treat regarding generalized weakness, deconditioning from CVA and cancer treatments Speech Therapy: evaluate and treat for dysphagia secondary to tonsillar cancer and mucositis from radiation treatment Homebound: 3. Certification and Authentication I certify that I composed the above information based on my clinical judgement relating to this patient's medical condition and, if applicable, clinical findings communicated to me by the NPP or inpatient physician who performed the Home Health Referral. All further orders will be obtained through Amelia Gomes (Community Based Physician - PCP)
--- NOTE | 2022-01-28 18:40 | PT.INDS ---
Date of service: 01/28/22 PT Notes Visit Reasons: Sepsis,Encephalopathy,Elevated Troponin,Obstructiv Physical Therapy Inpatient Discharge Summary Date: 01/28/2022 Dates of service: 01/25/2022 through 01/28/2022 This is a clinical summary of care provided for the duration of dates listed above. No charge was made in the completion of this documentation. Referring Doctor:? Dr. Menjivar PT Orders: PT CONSULT: limited ability to ambulate Precautions: standard Patient Profile/Admitting Diagnosis:??Patient admitted for medical management of sepis and encephalopathy following unresponsive episode at home yesterday. 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 Cedillo by Dr Francoonsillar mass (Acute) Dyspnea on exertion (Acute) Hyperlipidemia (Acute) Generalized osteoarthritis (Acute) Medical History? Benign prostatic hyperplasia microwave TUR Celiac disease Gastric motor function disorder Inflamed seborrheic keratosis Kidney stone (03/03/07) 2020 in [place], several recurrancesPolyp of colon Retinal artery branch occlusion Social History/Home Situation: Lives at home with his . Independent at baseline, no assistive device. 3 CHARLENE home, no rails.? Equipment Owned/DME: none Subjective: NT. See most recent FIREWALL ENGINEER notes. Objective:? General Observation: NT. See most recent FIREWALL ENGINEER notes. Mental Status: NT. See most recent FIREWALL ENGINEER notes. Pain: NT. See most recent FIREWALL ENGINEER notes. ROM: Right Upper Extremity: WFL Left Upper Extremity: WFL Right Lower Extremity: WFL Left Lower Extremity: WFL Strength: Right Upper Extremity: grossly 3/5 for all motions Left Upper Extremity: grossly 3/5 for all motions Right Lower Extremity: Hip flexion 4+/5. Quads 5/5. Ankle DF 5/5 Left Lower Extremity: Hip flexion 4+/5. Quads 5/5. Ankle DF 5/5 Sensation: intact bilat LEs BED MOBILITY/TRANSFERS: ? Supine-sit: I Sit-supine: I Sit-stand: SBA ? Stand-sit: SBA? GAIT? Assistive Device: FWW? Weight bearing: Full Assist: SBA? Distance:? 600' ? Deviation: Improved stability, steady gait and pacing, shoes donned Balance:? Static Sitting: fair Dynamic Sitting: fair Static Standing: fair Dynamic Standing: poor Assessment:?? Patient is a 86 year old male referred to physical therapy services with the diagnosis of sepsis and encephalopathy.? Patient presents with clinical signs and symptoms consistent with mobility impairments related to acute medical issues. He currently? demonstrates the following impairment level findings: 1. decreased coordination 2. disorientation 3. decreased safety awareness 4. decreased balance ?Impairments are contributing to the following functional limitations: 1. decreased safety with household distance ambulation 2. unable to manage stairs 3. decreased independence with bed mobility Goals: Goals X1 week 1. Supine-Sit : supervision NOT MET 2. Sit-Supine supervision NOT MET 3. Sit-Stand? supervision NOT MET 4. Stand-Sit? supervision NOT MET 5. Bed-Chair? supervision with FWW NOT MET 6. Chair-Bed? supervision with FWW NOT MET 7. Gait? supervision with FWW x 25' NOT MET 8. Stairs : ascend and descend 3 steps, supervision only NOT MET DISCHARGE RECOMMENDATIONS: Home with services : PT TREATMENT CODE/TIME: [place] Thank you for the opportunity to participate in the care of this patient. Miranda Royal PT, DPT, CLT [facility] [place], [place]
[2022-02-01 16:17] LABS: Methylmalonic Acid 0.27 nmol/mL (<=0.40)
== END 2022-01-28 16:58 | disposition home health service (06) | DRG 65 ==
LOC: ER 15:41 → MS 16:41
PROVIDERS: Internal Medicine; Student in an Organized Health Care Education/Training Program; Admitting Provider Internal Medicine; Emergency Provider Emergency Medicine; PCP Nurse Practitioner; Visit Provider Internal Medicine
DX: I63.443 Cerebral infarction due to embolism of bilateral cerebellar arteries (principal); G81.91 Hemiplegia, unspecified affecting right dominant side; G93.40 Encephalopathy, unspecified; N13.30 Unspecified hydronephrosis; R33.9 Retention of urine, unspecified; C09.9 Malignant neoplasm of tonsil, unspecified; R74.8 Abnormal levels of other serum enzymes; Z79.899 Other long term (current) drug therapy; Z66 Do not resuscitate; Z95.828 Presence of other vascular implants and grafts; G89.3 Neoplasm related pain (acute) (chronic); Z79.891 Long term (current) use of opiate analgesic; M1A.9XX0 Chronic gout, unspecified, without tophus (tophi); M15.9 Polyosteoarthritis, unspecified; E78.5 Hyperlipidemia, unspecified; K90.0 Celiac disease; Z96.653 Presence of artificial knee joint, bilateral; I44.0 Atrioventricular block, first degree; Z93.1 Gastrostomy status; R44.1 Visual hallucinations; E11.9 Type 2 diabetes mellitus without complications; F03.90 Unspecified dementia, unspecified severity, without behavioral disturbance, psychotic disturbance, mood disturbance, and anxiety; G25.0 Essential tremor; R50.2 Drug induced fever; T40.2X5A Adverse effect of other opioids, initial encounter
CPT/HCPCS: 36415; 51702; 62270; 70496; 70498; 70553; 71275; 74177; 80048; 80053; 80186; 80307; 82550; 82945; 84145; 86255; 87040; 87081; 87498; 87635; 89050; 89051; 90688; 92610; 93005; 93270; 93306; 96361; 96365; 96366; 96367; 96368; 96372; 96375; 96376; 97110; 97162; 97166; 97530; 97535; 99223; 99233; 99285; 70450; 71045; 71046; 80202; 80320; 81003; 81015; 82140; 82607; 83036; 83605; 83615; 83735; 84157; 84443; 84484; 85025; 86140; 86403; 87070; 87075; 87205; 93010; 99232; 99238; J0131; J1170; J2250; J3420; J3475; J3480; J3490

== ENCOUNTER 2022-02-16 13:34 | Outpatient (RCR) | payer MEDICARE, SELFPAY ==
[2022-02-16] MEDS: Normal Saline Flush 10 ML SYR IVP (13:38)
[2022-02-16] MEDS: Heparin 500 UNITS/5 ML SYRINGE IVP (13:38)
[2022-02-16 13:56] LABS: Abs Immature Grans 0.01 10^3/uL (0.0-0.06); Absolute Basophil Count 0.02 10^3/uL (0.0-0.2); Absolute Eosinophil Count 0.07 10^3/uL (0.0-0.7); Absolute Lymphocyte Count 0.39 10^3/uL (1.2-3.4); Absolute Monocyte Count 0.44 10^3/uL (0.1-0.8); Basophils % 0.6; Eosinophils % 2.2; HCT 32.9 % (40.0-50.0); HGB 10.9 g/dL (13.5-17.5); Immature Grans % 0.3; Lymphocytes % 12.1; MCHC 33.1 % (32.0-36.0); MCV 100 fL (80-95); MPV 9.1 fL (8.0-11.0); Monocytes % 13.6; Neutrophils % 71.2; Platelet Count 208 10^3/uL (130-400); RDW 18.5 % (11.8-14.1); RDW-SD 65.2 fL; WBC 3.23 10^3/uL (4.4-10.8)
[2022-02-16 14:10] LABS: ALT 25 U/L (16-63); AST 17 U/L (15-37); Albumin 2.9 g/dL (3.4-5.0); Alkaline Phosphatase 64 U/L (46-116); Anion Gap 5.3 mmol/L (3-11); BUN 23 mg/dL (7-18); Bilirubin, Total 0.5 mg/dL (0.2-1.0); CO2 30.7 mmol/L (21.0-32.0); CREATININE 0.9 mg/dL (0.70-1.30); Calcium 8.8 mg/dL (8.5-10.1); Chloride 98 mmol/L (98-107); Estimated GFR 84.22 (mL/min/1.73m2); Glucose 170 mg/dL (74-106); Potassium 4.2 mmol/L (3.5-5.1); Sodium 134 mmol/L (136-145); Total Protein 6.7 g/dL (6.4-8.2)
== END 2022-02-25 23:59 | disposition home or self-care (01) ==
LOC: INF 13:34
PROVIDERS: Preventive Medicine Undersea and Hyperbaric Medicine; PCP Nurse Practitioner Family; Visit Provider Internal Medicine Hematology & Oncology
DX: C09.9 Malignant neoplasm of tonsil, unspecified (principal); Z45.2 Encounter for adjustment and management of vascular access device
CPT/HCPCS: 36591; 80053; 83735; 85025

== ENCOUNTER 2022-03-05 08:14 | Outpatient (CLI) | payer MEDICARE, SELFPAY ==
--- NOTE | 2022-03-05 09:20 | W.CARDEVENT ---
Date of service: 03/05/22 Time of Service: 09:20 Cardiac Event Recorder Referring Provider:: Bud Palacios Indications:: Transient ischemic attack Cardiac Event Note: This is a 30-day cardiac event monitor, ordered for transient ischemic attack Predominant rhythm was sinus with first-degree AV block. Average heart rate was 87. Maximum was 108. There was no significant bradycardia There was no atrial fibrillation, no high-grade AV block, no pauses greater than 3 seconds, no significant ventricular dysrhythmias, no SVT There were no apparent patient's symptoms
== END 2022-03-05 08:15 | disposition home or self-care (01) ==
LOC: CARDOPNVT 08:14
PROVIDERS: PCP Nurse Practitioner Family; Visit Provider Internal Medicine Cardiovascular Disease
DX: I44.0 Atrioventricular block, first degree (principal); G45.9 Transient cerebral ischemic attack, unspecified
CPT/HCPCS: 93272

== ENCOUNTER 2022-03-16 02:44 | Outpatient (RCR) | payer MEDICARE, SELFPAY ==
[2022-03-16] MEDS: Normal Saline Flush 10 ML SYR IVP (13:40)
[2022-03-16] MEDS: Heparin 500 UNITS/5 ML SYRINGE IV (13:40)
[2022-03-16 13:51] LABS: Abs Immature Grans 0.01 10^3/uL (0.0-0.06); Absolute Basophil Count 0.02 10^3/uL (0.0-0.2); Absolute Eosinophil Count 0.13 10^3/uL (0.0-0.7); Absolute Lymphocyte Count 0.45 10^3/uL (1.2-3.4); Absolute Monocyte Count 0.74 10^3/uL (0.1-0.8); Absolute Neutrophil Count 3.35 10^3/uL (1.2-6.7); Basophils % 0.4; Eosinophils % 2.8; HCT 34.8 % (40.0-50.0); HGB 11.6 g/dL (13.5-17.5); Immature Grans % 0.2; Lymphocytes % 9.6; MCH 33.9 pg (27.0-33.0); MCHC 33.3 % (32.0-36.0); MCV 102 fL (80-95); MPV 8.7 fL (8.0-11.0); Monocytes % 15.7; Neutrophils % 71.3; Platelet Count 258 10^3/uL (130-400); RBC 3.42 10^6/uL (4.36-5.78); RDW 15.5 % (11.8-14.1); RDW-SD 58.2 fL
[2022-03-16 14:07] LABS: ALT 23 U/L (16-63); AST 19 U/L (15-37); Albumin 3.2 g/dL (3.4-5.0); Alkaline Phosphatase 66 U/L (46-116); Anion Gap 5.2 mmol/L (3-11); BUN 21 mg/dL (7-18); Bilirubin, Total 0.8 mg/dL (0.2-1.0); CO2 30.8 mmol/L (21.0-32.0); CREATININE 0.8 mg/dL (0.70-1.30); Calcium 9.1 mg/dL (8.5-10.1); Chloride 99 mmol/L (98-107); Estimated GFR 87.27 (mL/min/1.73m2); Glucose 134 mg/dL (74-106); Potassium 3.9 mmol/L (3.5-5.1); Sodium 135 mmol/L (136-145); Total Protein 6.9 g/dL (6.4-8.2)
== END 2022-03-28 23:59 | disposition home or self-care (01) ==
LOC: INF 02:44
PROVIDERS: Preventive Medicine Undersea and Hyperbaric Medicine; PCP Nurse Practitioner Family; Visit Provider Internal Medicine Hematology & Oncology
DX: C09.9 Malignant neoplasm of tonsil, unspecified (principal); Z45.2 Encounter for adjustment and management of vascular access device
CPT/HCPCS: 36591; 80053; 85025

== ENCOUNTER → 2022-04-02 09:48 | Outpatient (BNVA) | payer MEDICARE, SELFPAY | PROVIDERS: PCP Nurse Practitioner Family; Referring Provider Nurse Practitioner; Visit Provider Psychiatry & Neurology Neurology | DX: I69.398 Other sequelae of cerebral infarction (principal); R53.1 Weakness; Z79.02 Long term (current) use of antithrombotics/antiplatelets; G25.0 Essential tremor; E11.9 Type 2 diabetes mellitus without complications | CPT/HCPCS: 99215 ==

== ENCOUNTER 2022-07-20 09:58 | Outpatient (RCR) | payer MEDICARE, SELFPAY ==
[2022-07-20] MEDS: Normal Saline Flush 10 ML SYR IVP (09:30)
[2022-07-20] MEDS: Heparin 500 UNITS/5 ML SYRINGE IV (09:30)
[2022-07-20 10:08] LABS: Abs Immature Grans 0.01 10^3/uL (0.0-0.06); Absolute Basophil Count 0.01 10^3/uL (0.0-0.2); Absolute Eosinophil Count 0.15 10^3/uL (0.0-0.7); Absolute Monocyte Count 0.44 10^3/uL (0.1-0.8); Absolute Neutrophil Count 2.35 10^3/uL (1.2-6.7); Basophils % 0.3; Eosinophils % 4.3; HCT 37.2 % (40.0-50.0); HGB 12.5 g/dL (13.5-17.5); Immature Grans % 0.3; Lymphocytes % 14.5; MCH 32.4 pg (27.0-33.0); MCHC 33.6 % (32.0-36.0); MCV 96 fL (80-95); MPV 8.7 fL (8.0-11.0); Monocytes % 12.7; Neutrophils % 67.9; Platelet Count 209 10^3/uL (130-400); RBC 3.86 10^6/uL (4.36-5.78); RDW 14.2 % (11.8-14.1); RDW-SD 50.9 fL; WBC 3.46 10^3/uL (4.4-10.8)
[2022-07-20 10:31] LABS: ALT 21 U/L (16-63); AST 17 U/L (15-37); Albumin 3.2 g/dL (3.4-5.0); Alkaline Phosphatase 65 U/L (46-116); Anion Gap 3.6 mmol/L (3-11); BUN 9 mg/dL (7-18); CO2 29.4 mmol/L (21.0-32.0); CREATININE 0.9 mg/dL (0.70-1.30); Calcium 9.4 mg/dL (8.5-10.1); Chloride 103 mmol/L (98-107); Glucose 117 mg/dL (74-106); Potassium 4.2 mmol/L (3.5-5.1); Sodium 136 mmol/L (136-145); TSH 2.63 uIU/mL (0.36-3.74)
== END 2022-07-26 23:59 | disposition home or self-care (01) ==
LOC: INF 09:58
PROVIDERS: PCP Nurse Practitioner Family; Visit Provider Internal Medicine Hematology & Oncology
DX: R53.83 Other fatigue (principal); C09.9 Malignant neoplasm of tonsil, unspecified; Z45.2 Encounter for adjustment and management of vascular access device
CPT/HCPCS: 36591; 80053; 84443; 85025

== ENCOUNTER → 2022-07-30 09:51 | Outpatient (BNVA) | payer MEDICARE, SELFPAY | PROVIDERS: PCP Nurse Practitioner Family; Referring Provider Nurse Practitioner Family; Visit Provider Psychiatry & Neurology Neurology | DX: I69.398 Other sequelae of cerebral infarction (principal); R26.89 Other abnormalities of gait and mobility; G25.0 Essential tremor | CPT/HCPCS: 99215 ==

== ENCOUNTER 2022-08-11 01:16 | Outpatient (CLI) | payer MEDICARE, SELFPAY ==
--- NOTE | 2022-08-11 06:30 | DI.MRI_ITS ---
Exam(s) MR CERVICAL SPINE WO EXAM: MR CERVICAL SPINE WO CLINICAL HISTORY: ?myelopathy,repeated falls, abnl reflex, r29.2,r29.6 TECHNIQUE: Multiplanar multisequence MRI of the cervical spine was performed without intravenous con trast. FINDINGS: BONES: Vertebral body heights are maintained. Intervertebral disc spaces are normal. 2-3 mm anterolis thesis of C7 on T1 is noted. Bone marrow signal intensity is within normal limits. There is a fusion of the C3 and C4 vertebra. CERVICAL CORD: Craniovertebral junction is unremarkable. The cervical cord is normal size and signal intensity. SOFT TISSUES: Unremarkable. C2-3: No disc herniation or bulge is identified. No significant central spinal canal or neural forami nal stenosis. C3-4: No disc herniation or bulge is identified. Facet arthropathy on the left causing mild left chica ral foraminal stenosis. No significant right or central spinal canal stenosis. No significant centr al spinal canal or neural foraminal stenosis C4-5: No disc herniation or bulge is identified. Mild prominence of the uncovertebral joints and fac ets bilaterally, most prominent on the left.. This does result in mild left neural foraminal narrowi ng. No significant central spinal canal stenosis. C5-6: No disc herniation or bulge is identified. No significant central spinal canal or neural forami nal stenosis C6-7: No disc herniation or bulge is identified. Mild prominence of the right uncovertebral joint ca using mild right neural foraminal stenosis. No significant central spinal canal or neural foraminal stenosis C7-T1: No disc herniation or bulge is identified. There is mild bilateral narrowing of the neural for amen. No significant central spinal canal stenosis is present. IMPRESSION: 1. Normal appearance of the spinal cord. No evidence of cerebellar tonsillar herniation or cord 6 ab normality. 2. Multilevel degenerative changes in the cervical spine resulting in neural foraminal stenosis as de scribed above. 3. No significant central spinal canal stenosis. DATA REPOSITORY:
== END 2022-08-11 01:36 ==
LOC: DI 01:17
PROVIDERS: PCP Nurse Practitioner Family; Visit Provider Psychiatry & Neurology Neurology
DX: M48.02 Spinal stenosis, cervical region; G99.2 Myelopathy in diseases classified elsewhere
CPT/HCPCS: 72141

== ENCOUNTER 2022-08-12 01:45 | Outpatient (CLI) | payer MEDICARE, SELFPAY ==
--- NOTE | 2022-08-12 14:30 | DI.RAD_ITS ---
Exam(s) RF MODIFIED SPEECH BA SWALLOW TECHNIQUE: Modified barium swallow was performed in conjunction with speech pathology. CONTRAST MATERIAL: Multiple consistencies of oral barium was administered. COMPARISON: No exams were available for comparison FINDINGS: There is no evidence of aspiration or penetration with any consistency. No significant residue in t he vallecula or piriform sinuses. Barium tablet was administered which show delay in passing throug h the distal esophagus. It passed through following several swallows of barium and water. Narrowing suspected at this location.. Speech pathology report to follow. . . . IMPRESSION: No evidence of aspiration or penetration. Distal esophageal narrowing. RADIATION DOSE DELIVERED: juan c Méndez=14.5 mGy
[2022-08-12] MEDS: Barium Sulfate Oral Paste 40% W/V 230 ML TUBE PO (15:20)
[2022-08-12] MEDS: Barium Sulfate 81% w/w for Oral Suspension 148 GM BTL PO (15:21)
[2022-08-12] MEDS: Barium Sulfate 40% W/V 240 ML BTL PO (15:22)
[2022-08-12] MEDS: Barium Sulfate 700 MG TAB PO (15:23)
--- NOTE | 2022-08-12 16:04 | ST.MBS ---
Date of Service Date of service: 08/12/22 Time of Service: 16:04 Modified Barium Swallow Study Findings: Video fluoroscopic Swallowing Evaluation (VFSE) / Modified Barium Swallow Study (MBSS) Speech Language Pathology Report Patient referred for VFSE/MBSS from Dr. Sy given recent chemoradiation treatment for H/N cancer with residual dysphagia especially to solids. HPI & Patient report of function: Patient is an 87 year old M with hx squamous cell carinoma of R tonsil, acute ischemic multifocal vascular stroke, gout, HLD, osteoarthritis. He completed primary XRT late December 2021. PEG tube was removed 03/2022. Patient reports esophageal stasis/discomfort with meals, as well as pharyngeal stasis to ground meats, stringy chicken, and other dry foods.He makes sure to chew thoroughly, tries to moisten foods, and uses water to help wash things down. He was taking 5 cartons via tube up until March of this year, started really increasing his oral intake about 2 weeks prior to tube feed removal and prior to his PET scan. He also complains of moderate residual dysgeusia and xerostomia. Uses xylamelts at night. Drinks about 8 bottles of water per day because of dryness. He also complains of esophageal stasis and belching. [facility] Medical History? Benign prostatic hyperplasia microwave TUR Celiac disease Gastric motor function disorder Inflamed seborrheic keratosis Kidney stone (03/03/07) 2020 in [place], several recurrancesPolyp of colon Retinal artery branch occlusion Surgical History? Colonoscopy - MAC (~2006) NEG BUT + family hxCystoscopy History of transurethral resection of prostate Replacement of total knee joint x 2Status post cystoscopy Status post total knee replacement bilateralTransurethral prostatectomy IMPRESSIONS: Swallow safety is preserved; swallow efficiency is impaired. 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 Characterized primarily by variable tongue base retraction, delayed pharyngeal swallow and slow/mildly reduced epiglottic inversion, posssibly complicated by reduced anterior hyoid movement & contributing to pharyngeal residue for solids. Distal esophageal ?narrowing (per radiologist) resulting in stasis especially for barium tablet resulting in moderate-severe buildup and retrograde flow below UES which correlates clinically to patient report. There was no penetration or aspiration during the exam and minimal pharyngeal residue except for dry solids. Patient appears to be at low risk for potential aspiration PNA and/or pulmonary compromise and low risk for malnutrition, low risk for dehydration. Diet modification is indicated to reduce esophageal symptoms; non-oral nutrition is not indicated. Swallow prognosis is excellent good given: Positive prognostic factors: Severity, Time since onset, Family/caregiver support, Cognitive status, Effectiveness of trialed compensatory strategies, Negative prognostic factors: Age, Potential for late effects of radiation fibrosis and pending patient/caregiver training in risk management as outlined, including use of trialed compensatory strategies. Patient appears to be a good candidate for behavioral swallow rehabilitation. Specialist referrals:? GI ? Ancillary tests: May consider EGD/Upper GI Endoscopy Upper GI series/UGI Barium Esophagram and/or High Resolution Esophageal Manometry Other. RECOMMENDATIONS: Diet Texture Recommendation:? IDDSI LEVEL SOLIDS 6-Soft & Bite-Sized Solids LIQUIDS 0-Thin Liquids Please see further details at?www.iddsi.[email or web address].iddsi.org/ MEDICATIONS Whole or Cut, as able with 0-Thin Liquids Diet texture modification is per patient's preference; please adjust diet textures at patient's discretion & collaboration with care team. Do not alter medications (e.g., cut)? without advice from your MD or pharmacist. Risk Management Strategies:? Behavioral reflux precautions, including upright position during + 90 mins after meals. Small bites, approx [id number] Small sips, approx 10 mL Slow rate Alternate solids/liquids as able Multiple swallows per solid bolus to encourage clearance of pharyngeal stasis/residue Control risk factors for aspiration pneumonia via (a) thorough oral hygiene & (b) maintaining physical mobility as tolerated PLAN: Therapy: Recommend subsequent outpatient session with GREASE REFINER OPERATOR to review results of today's exam and develop treatment plan as appropriate. May consider the following: Further Compensatory Strategy Training, Further Training/Education in Risk Management ,Training in RMST Program, Skilled Nursing Pharyngocize Goals: Defer to treating clinician Follow-up exam: prn ----- OBJECTIVE Videofluoroscopic Swallow Evaluation (VFSE/MBSS) was conducted in the lateral and [id number] projection by Speech-Language Pathologist, in collaboration with Radiologist, to evaluate oropharyngeal swallow function. Anatomic view under fluoroscopy: WFL, ?osteophytes C5-6 PO Barium Contrast Trials Oral barium water-soluble contrast was administered as follows: IDDSI Level 0 Varibar thin liquid (40% w/v) IDDSI Level 2 Varibar nectar thick/mildly thick liquid (40% w/v) IDDSI Level 4 Varibar pudding/pureed/extremely thick (40% w/v) IDDSI Level 7 Regular Solid: 1/2 zara cracker coated in 3 mL Varibar pudding 13 mm barium tablet taken with Thin Liquids. MBSImP Component Scores: COMPONENT Scale SCORE 1 Lip closure (0-4) 0 Resulted in no labial escape 2 Hold Position (0-3) 0 Maintained a cohesive bolus between tongue to palatal seal 3 Bolus Preparation (0-4) 1 Resulted in slow prolonged chewing/mashing with complete re-collection 4 Bolus Transport (0-4) 1 Demonstrated delayed initiation of tongue motion 5 Oral Residue (0-4) 2 Was a collection on oral structures 6 Swallow Initiation (0-4) 3 Occurred when the bolus head was in the pyriform sinuses 7 Soft Palate Elevation (0-4) 0 Resulted in no bolus between soft palate and the pharyngeal wall 8 Laryngeal Elevation (0-3) 1 Was decreased with partial superior movement of thyroid cartilage/partial approximation of arytenoids to epiglottic petiole 9 Anterior Hyoid Motion (0-2) 1 Demonstrated partial anterior movement 10 Epiglottic Movement (0-2) 0 Resulted in complete inversion 11 Laryngeal Closure (0-2) 0 Was complete with no air or contrast in laryngeal vestibule 12 Pharyngeal Stripping Wave (0-2) 0 Was present and complete 13 Pharyngeal Contraction (0-3) 1 Was incomplete, with presence of pseudodiverticulae 14 PES Opening (0-3) 0 Was completely distended and complete duration with no obstruction of flow 15 Tongue Base Retraction (0-4) 1 Allowed a trace column of contrast or air between tongue base and pharyngeal wall 16 Pharyngeal Residue (0-4) 2 Was a collection of residue within or on pharyngeal structures 17 Esophageal Clearance (0-4) 2 Resulted in esophageal retention with retrograde flow below pharyngoesophageal segment Results: COMPONENT Scale SCORE 1 Oral Score (0-18) 7 2 Pharyngeal Score (0-29) 5 3 Esophageal Score (0-4) 2 Dysphagia Outcome and Severity Scale: COMPONENT Scale SCORE 1 LEVEL (1-7) 5 Full PO: Modified Diet and/or [place] - Mild dysphagia; Distant supervision may need 1 diet consistency restricted Penetration-Aspiration Scale: COMPONENT Scale SCORE 1 Thin liquid (1-8) 1 Contrast did not enter the airway 2 [place] thick (1-8) 1 Contrast did not enter the airway 3 Honey thick (1-8) NA 4 Pudding thick (1-8) 1 Contrast did not enter the airway 5 Cookie (1-8) 1 Contrast did not enter the airway Functional Oral Intake Scale: COMPONENT Scale SCORE 1 Pre-Study (1-7) 6 Total oral intake with no special preparation, but must avoid specific foods or liquid items 2 Post-Study (1-7) 6 Total oral intake with no special preparation, but must avoid specific foods or liquid items DIGEST: COMPONENT Scale SCORE 1 Thin Max PAS (1-8) 1 Contrast did not enter the airway 2 [place] Max PAS (1-8) 1 Contrast did not enter the airway 3 Honey Max PAS (1-8) NA 4 Liquid Max PAS (1-8) 1 Maximum PAS Score over all liquid trials 5 Liquid Max Residue (0-3) 0 below 10% 6 Pudding Max PAS (1-8) 1 Contrast did not enter the airway 7 Pudding Max Residue (0-3) 0 below 10% 8 Cracker Max PAS (1-8) 1 Contrast did not enter the airway 9 Cracker Max Residue (0-3) 2 50 - 90% 10 Frequency if PAS >= 3 (0-3) NA 11 Amount if PAS >= 5 (0-1) NA Results: COMPONENT Scale SCORE 1 SAFETY GRADE (0-4) 0 Safety grade for swallowing based on patterns of aspiration or laryngeal penetration 2 EFFICIENCY GRADE (0-4) 2 Efficiency grade of swallowing based on patterns of pharyngeal residue 3 DIGEST (0-4) 1 Severity grade of pharyngeal dysphagia: 0 - Normal, 1 - Mild, 2 - Moderate, 3 - Severe, 4 - Life threatening 4 Max Exam PAS (1-8) 1 Maximum PAS Score over all bolus trials 5 Max Exam Residue (0-3) 2 Maximum Exam Residue over all bolus trials Trialed Compensatory Strategies & Outcome: Maneuvers Successful (+) Unsuccessful (-) Postures Successful (+) Unsuccessful (-) 3 second Preparatory Set? ? +/- Chin Tuck Posture? ? Cough? ? Posterior Head tilt? Reflexive? Cued? Throat Clear? ? Head Tilt to? Reflexive? Left? Cued? Right? ? Saliva swallow? ? + Head Turn/Rotate to? ? Supraglottic Swallow? Left? ? Super-supraglottic Swallow? Right? ? Bolus Modifications Successful (+) Unsuccessful (-) Delivery/Alternating Consistencies ? Follow with Liquid Wash + ? Follow with Solid Bolus? Delivery/Via Straw? ? Reduced Volume? ? Reduced Rate of Intake? ? Increased Viscosity? ? Other:?? ? Thank you for allowing us to take part in this patient's care. Please feel free to contact the [facility] Speech Language Pathology Department with any questions/concerns. Coding CPT Codes MOTION FLUOROSCOPY/SWALLOW - [id number] ([id number])
== END 2022-08-12 02:05 ==
LOC: DI 01:45
PROVIDERS: PCP Nurse Practitioner Family; Visit Provider Internal Medicine Hematology & Oncology
DX: R13.10 Dysphagia, unspecified (principal)
CPT/HCPCS: 92611; 74221

== ENCOUNTER 2022-08-17 12:47 | Emergency (ER) | payer MEDICARE, SELFPAY ==
[2022-08-17 12:51] VITALS: BP 175/93; PULSE 64; RESP 18; TEMP 36.6; O2SAT 98
[2022-08-17 13:40] VITALS: BP 156/85; PULSE 72; O2SAT 97
[2022-08-17] MEDS: Gelatin SPONGE 12-7 MM PKT 1 EACH TP (14:00)
--- NOTE | 2022-08-17 14:06 | DI.CT_ITS ---
Exam(s) CT HEAD CERV SPINE FACIAL WO EXAM: CT HEAD CERV SPINE FACIAL WO CLINICAL HISTORY: fall. TECHNIQUE: Imaging Protocol: Axial computed tomography images with coronal and sagittal reformatted images were created and reviewed COMPARISON: CT CT BRAIN NECK CTA from 01/25/2022 FINDINGS: CT Head: Ventricles and Extra axial spaces: Normal in size and morphology for the patient's age. Hemorrhage: None. Cerebral parenchyma: There is no evidence of an acute territorial infarct. There are areas of decrea sed attenuation in the white matter consistent with small vessel ischemic disease. Midline shift: None. Brainstem/Cerebellum: Normal. Calvarium: Normal. Visualized Paranasal sinuses/Mastoids: Clear. Soft Tissues: Unremarkable. CT Face: Facial Bones: No definite fracture is noted in facial bones. Sinuses and Mastoids: Unremarkable. Globes, extraocular muscles, optic nerves and retrobulbar fat: Normal. Upper aerodigestive tract: Normal. Mandible and bilateral temporomandibular joints: Normal. Soft tissues: There is soft tissue swelling over the right mandible and cheek. No radiopaque foreign bodies are seen. There does appear to be disruption of the skin suggesting a laceration. CT Cervical Spine: Bones: No acute fracture or subluxation. Age-appropriate degenerative changes are seen in the spine. Soft Tissues: Unremarkable. Lung Apices: Clear. IMPRESSION: 1. No acute intracranial process. 2. No acute fracture or subluxation in the cervical spine. 3. No acute facial fracture. 4. Soft tissue laceration overlying the right mandible and cheek. No radiopaque foreign bodies are i dentified. 5. Findings were discussed with the emergency department at 3:12 p.m. on 08/17/2022. RADIATION DOSE DELIVERED: 2,346.01mGy.cm Total DLP DATA REPOSITORY: All CT scans at this facility are submitted to the National Radiology Data Registry (NRDR) Dose Index Registry (DIR) with the [employer] ([employer]). RADIATION OPTIMIZATION: All CT scans at this facility use at least one of these dose optimization te chniques: automated exposure control; mA and/or kV adjustment per patient size (includes targeted exa ms where dose is matched to clinical indication); or iterative reconstruction.
--- NOTE | 2022-08-17 14:15 | RT.EKG_ITS ---
APPROVED REPORT Exam: Resting ECG Reason for Exam: fall Patient Location: E HR:76 bpm ECG Measurements Heart Rate 76 AXIS AZ 240 P 11 QRSd 96 QRS 66 QT 391 T 65 QTc 439 Conclusion Sinus arrhythmia...V-rate 66- 97, variation>10% Atrial premature complex...SV complex w/ short R-R interval Prolonged AZ interval...AZ >220, V-rate 50- 90. Sinus. Normal axis. Prolonged AZ. No STEMI. I have reviewed and interpreted ECG and agree with software generated interpretation.
--- NOTE | 2022-08-17 14:19 | ED.GENADUL_ITS ---
Discharge Plan Disposition Patient Disposition: Home Condition: Stable Discharge Details Clinical Impression: Fall, Head injury, Face lacerations, Contusion of face, Abrasion of arm, left Primary Care Provider: Angie Tristan ED Provider: Milvia Bernal Home Meds and New Rx's Prescriptions: Continued allopurinol 300 mg tablet 300 mg PO DAILY simvastatin 80 mg tablet 80 mg PO Q OTHER DAY aspirin 81 mg tablet,delayed release (DR/EC) 81 mg PO DAILY Qty: 1 0RF mecobalamin (vitamin B12) 1,000 mcg tablet,chewable 1,000 mcg PO DAILY ICaps AREDS2 250 mg-200 unit -12.5 mg-1 mg capsule 2 cap PO DAILY methylphenidate HCl 5 mg tablet 5 mg PO DAILY MDD 10mg PRN (Reason: fatigue) Qty: 5 0RF triamcinolone acetonide 0.1 % cream 1 applic Topical BID Qty: 30 2RF Rx Instructions: Apply to rash Discharge Instructions Instructions: Head Injury (ED), Abrasion (ED), Facial Laceration (ED) Additional Instructions: Your imaging is reassuring here today. Your laceration has been closed with absorbable sutures. These will come out on their own. Please do not pick or pull at these. Please monitor wound for signs of infection including redness, warmth, drainage, increased pain, fever/chills, discharge. If you develop these or other new/worsening symptom please seek care urgently once again. Please use Tylenol as needed for discomfort. Encourage hydration. Encourage rest. Please try to clear out as much as you can that may be tripping hazard to help prevent falls in the future. I have referred you to physical therapy to help with your difficulty with your balance to help prevent falls in the future. Please not put any ointment over your wound. Follow-up with primary care in 1 week for reevaluation. If you develop increased headache, weakness, sensory change, signs of infection please seek care urgently once again. Stand Alone Forms: Physical Therapy Referral Referrals: Angie Tristan NP [Primary Care Provider] - Discharge Data Discharge Date/Time-TO BE ENTERED AT DEPARTURE: 08/17/22 16:47 Medical Decision Making Patient is a pleasant 87-year-old gentleman, accompanied by his with chief complaint of head and face laceration. He reports that he has been falling frequently recently. Unclear as to exact mechanism. This has been being evaluated by his primary care. He states that he fell today, unclear mechanism, leading him to have injury to the top of his head as well as laceration on his face. He denies any chest pain. No shortness of breath. Denies any syncopal episode. Denies any loss of consciousness. Denies headache currently. Primarily concern at this time is a mild bleeding coming from his face. Denies any visual change. No weakness. Did have a bleeding controlled prior to arrival but has been having difficulty with this since then. Past medical history is pertinent for mild cognitive impairment, stroke, tonsillar mass. Patient was undergoing care for cancer but was deemed clear in March. Was transition off of Eliquis and onto aspirin 1 week ago. Concern that his frequent falls associated with neuropathy, possibly associated with glucose or B12. 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 On exam, patient appears anxious around blood from wound, but otherwise non- toxic and stable. He has evidence of head trauma with ecchymotic/swollen area top of forehead. No palpable skull fracture. Given age, will move forward with CT to evaluate for possible ICH. He has 5cm linear laceration to right cheek withotu deep structure involvement. He reports some pain in his jaw but none elicited on exam. Will include face and neck in imagine. Patient states fidel thte laceration is from piece of metal that he hit when he tripped in his shop. Will update tetanus. Prior to going to imaging, will need to control bleeding. Discussed with patient. Initially, pressure dressing applied, no relief. Gelfoam applied which also did not help. Patient injected with lidocaine with epi with good hemostasis. Dressing applied for imaging. Will obtain labs as reports large amoutn of bleeding. Also unclear exactly what has been causing the frequent falls. Considered UTI as well, he has had extensive workup with neurology for this already. Likely, one of his chronic diagnosis but considered acute on chronic source as well. CT without evidence of actue fracture or ICH. Dsicussed with patient and family. Bleeding has started again, more minimally this time. We discussed wound care in depth, discussed risks/benefits, al ternatives and expected procedural steps. He voices udnerstanding and wishes to proceed. Please see proceedure note. After 8cc of anesthetic, good result obtained as well as hemostasis. To help promote hemostasis, decided on running subQ, with adhevise over. Wound was explored to base in bloodless field, no FB or debris noted. Deep structures intact. Wound irrigated with sterile saline. Wound c losed easily without tension on the wound. Single interupted stitch placed at the small infeerrior defect running perpendicular to the larger wound. No new ECG abnormalities. No symptoms of ACS or arrhythmia based on his description. UA witout evidence of infection. Patient slightly anemic but this appears chronic. We discussed wound care in dpeth. Ecchymosis has been spreaading since being he re, I imagine a large portion of his face will be ecchymotic by the end of the day. Encouraged ice. Discussed pain management, advised APAP if needed which he declined here. We discussed wound care, care of adhesive and absorbable sutures. Strict return precautions discussed, advised close f/u with PCP. All of their quesitons and concerns were addressed, they are in agreement with this plan. HPI General Date/Time Provider Initiated Documentation: 08/17/22 13:32 . Limitations to Documentation: no limitations . Information obtained by: patient, family and RN notes reviewed . History of Present Illness 87 year old M presents to the emergency department with the chief complaint of fall, facial laceration and head injury, described as moderate, Quality is described as aching (patient denies signficant pain, d enies any BAILEY, primary concern is bleeding from facial laceration), and is localized to the head and face. Patient reports no radiation. Patient started experiencing this minute(s) and it has been constant. No relieving factors improve symptom(s), No exacerbating factors reported . Patient notes no other symptoms.. Patient did receive the following treatments prior to arrival, none Related Data Home Medications Medication Instructions Recorded Confirmed triamcinolone acetonide 0.1 % 1 applic topical BID #30 grams 07/04/19 08/17/22 topical cream allopurinol 300 mg tablet 300 mg PO DAILY 04/02/22 08/17/22 simvastatin 80 mg tablet 80 mg PO Q OTHER DAY 04/02/22 08/17/22 aspirin 81 mg tablet,delayed 81 mg PO DAILY #1 tab 07/30/22 08/17/22 release mecobalamin (vitamin B12) 1,000 1,000 mcg PO DAILY 08/12/22 08/17/22 mcg chewable tablet methylphenidate HCl 5 mg tablet 5 mg PO DAILY PRN fatigue #5 tabs 08/12/22 08/17/22 vit C 250 mg-vit E 200 unit-zinc 2 cap PO DAILY 08/12/22 08/17/22 ox 12.5 [id number] capsule (ICaps AREDS2) Previous Rx's Medication Instructions Recorded triamcinolone acetonide 0.1 % 1 applic topical BID #30 grams 07/04/19 topical cream aspirin 81 mg tablet,delayed 81 mg PO DAILY #1 tab 07/30/22 release methylphenidate HCl 5 mg tablet 5 mg PO DAILY PRN fatigue #5 tabs 08/12/22 Allergies Allergy/AdvReac Type Severity Reaction Status Date / Time adhesive tape Allergy Skin Rash Unverified 08/17/22 13:40 General Stated Complaint: Fall/Non TraumaCriteria AMBER: 3 Review of Systems Constitutional Constitutional: Reports as per HPI, Denies fatigue, Reports frequent falls (reports chronic, associated with old strokes), Denies headache(s) and Denies weakness Eyes Eyes: Reports as per HPI, Denies blurry vision and Denies change in vision ENT Ears, Nose, Mouth, and Throat: Denies headache(s) and Denies neck pain Cardiovascular Cardiovascular: Reports as per HPI, Denies chest pain, Denies lightheadedness, Denies dyspnea and Denies dyspnea on exertion Respiratory Respiratory: Reports as per HPI, Denies dyspnea and Denies dyspnea on exertion Gastrointestinal Gastrointestinal: Reports as per HPI, Denies abdominal pain, Denies change in bowel habits, Denies nausea and Denies vomiting Genitourinary Genitourinary: Reports system reviewed and no additional complaints, except as documented (denies change in urinary habits) Musculoskeletal Musculoskeletal: Reports as per HPI, Denies back pain, Denies myalgias, Denies muscle cramps, Denies neck pain and Denies numbness Integumentary/Breasts Skin/Breast: Reports as per HPI Neurologic Neurologic: Reports as per HPI, Denies abnormal movements, Denies abnormal speech, Denies behavioral changes, Denies confusion, Reports frequent falls (reports chronic, associated with old strokes), Denies headache(s), Denies local ized weakness, Denies numbness, Denies sensory deficit and Denies weakness Psychiatric Psychiatric: Denies behavioral changes and Denies confusion Endocrine Endocrine: Denies fatigue PFSH All Active Problems (Updated 08/17/22 @ 16:32 by NOEMI Arreola) Fall (Acute) Head injury (Acute) Face lacerations (Acute) Contusion of face (Acute) Abrasion of arm, left (Acute) Stye external (Acute) Dysphagia (Acute) 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 Cedillo by Dr Pena Tonsillar mass (Acute) Dyspnea on exertion (Acute) Hyperlipidemia (Acute) Generalized osteoarthritis (Acute) Medical History Benign prostatic hyperplasia microwave TUR Celiac disease Gastric motor function disorder Inflamed seborrheic keratosis Kidney stone (03/03/07) 2020 in [place], several recurrances Polyp of colon Retinal artery branch occlusion Surgical History Colonoscopy - MAC (~2006) NEG BUT + family hx Cystoscopy History of transurethral resection of prostate Replacement of total knee joint x 2 Status post cystoscopy Status post total knee replacement bilateral Transurethral prostatectomy Family History Mother , 65 Heart disease Father , 59 Personal history of malignant neoplasm COLON Sister Heart disease Social History Smoking/Tobacco Use Status: Never Smoking risk assessment performed?: Yes Alcohol Intake: former Drug use: Never Substance use type: does not use Caregiver/Support person: No Household members: spouse Housing: house Pets and animals: Yes Pets and animals: dog(s) Sexually active: Yes Do you think of yourself as: straight/heterosexual Current gender identity: male What is your relationship status?: Do you belong to any clubs or organized social groups?: yes Panel score (0-1 are the most socially isolated patients): 2 What type of physical activity do you participate in: none Special kena needs: No Seatbelt use: always Drive intox or ride w/intox dedicated 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 Area of contusion, no palpable skull fracture Ears: hearing grossly normal bilaterally, external ears normal and TM's normal bilaterally General nose exam: external nose normal Face images: 2 1. Facial laceration about 5cm in length. In the center, there is one small downward deflection but otherwise, this is very linear. Actively bleeding. No FB or debris noted in the wound. It does not extend into deeper tissues, not into the intraoral cavity. No epistaxis. Small, very superficial abrasion runs from this over the right nares. Surroudning this, particularly medially, there is ecchymosis and swelling. Dention intact. No maxillary instability. Good ROM of TMJ without locking or pain. EOM intact, no evidence of orbital fracture. Mouth: oral mucosae normal and moist mucous membranes Throat: posterior oropharynx normal Eyes General: appearance normal, both eyes and all related structures Alignment and Position: alignment normal Periorbital: periorbital findings normal Eyelids: eyelids normal Sclera: sclerae normal Cornea: corneas normal Pupils: PERRL EOM: EOM intact bilaterally Neck Neck: normal visual inspection, full ROM and no lymphadenopathy Chest Chest: normal inspection of the chest, normal palpation of entire chest wall, no crepitus and no tenderness Resp Effort & Inspection: normal respiratory effort, able to speak in complete sentences and no respiratory distress Auscultation: clear to auscultation bilaterally, no rales, no rhonchi and no wheezes Cardio Rate: regular rate Rhythm: regular rhythm Heart Sounds: S1 normal and S2 normal GI Inspection: normal to inspection and non-distended Palpation: soft, no hepatosplenomegaly, not firm, no guarding, not rigid and nontender Percussion: normal to percussion Auscultation: normal bowel sounds Back/Spine/Pelvis Cervical Spine: normal cervical lordosis and cervical ROM normal Skin General skin exam: ecchymosis Trauma: abrasion (two circular superficial wounds left forearm) and laceration (facial) Neuro General: patient alert, patient awake and patient oriented x3 Cranial Nerves: CN's II-XI intact bilaterally Cognition: normal cognition Speech: speech normal Gait: normal gait Motor: muscle tone normal throughout, strength 5/5 throughout, no movement abnormalities noted and no fasciculations Sensory Exam: no sensory deficits noted Course Vital Signs Vital signs: Vital Signs Temperature 36.6 C 08/17/22 12:51 Pulse 64 08/17/22 12:51 Respiratory Rate 18 08/17/22 12:51 Blood Pressure 175/93 H 08/17/22 12:51 Pulse Oximetry 98 08/17/22 12:51 Temperature 36.6 C 08/17/22 12:51 Temperature Source Oral 08/17/22 12:51 Pulse 72 08/17/22 13:40 Respiratory Rate 18 08/17/22 12:51 Respiratory Effort Normal, Non-Labored 08/17/22 12:55 Blood Pressure 156/85 H 08/17/22 13:40 Blood Pressure Position Sitting 08/17/22 12:51 Pulse Oximetry 97 08/17/22 13:40 Oxygen Delivery Method Room Air 08/17/22 13:40 Oxygen Flow Rate 0 08/17/22 13:40 Pain Level 2 08/17/22 13:40 Comment aching 08/17/22 13:40 Procedures Laceration Laceration 1: Site: face Side (If applicable): right Size (cm): 5 Description: linear (5cm linear plus small extension inferiorly 5mm) Depth: simple, single layer Local Anesthetic: Lidocaine 1% and with Epi Amount of anesthesia used (mL): 8 Pre-repair: wound explored, irrigated extensively and deep structures intact Skin layer closed with: other (monocryl) Size (cm): 6-0 Number of sutures: 2 Technique: simple, interrupted and running (nay)
[2022-08-17] MEDS: Normal Saline Flush 10 ML SYR IVP (14:25)
[2022-08-17 14:35] LABS: Abs Immature Grans 0.01 10^3/uL (0.0-0.06); Absolute Basophil Count 0.02 10^3/uL (0.0-0.2); Absolute Eosinophil Count 0.18 10^3/uL (0.0-0.7); Absolute Lymphocyte Count 0.67 10^3/uL (1.2-3.4); Absolute Monocyte Count 0.43 10^3/uL (0.1-0.8); Absolute Neutrophil Count 3.72 10^3/uL (1.2-6.7); Basophils % 0.4; Eosinophils % 3.6; HCT 36.1 % (40.0-50.0); HGB 12.1 g/dL (13.5-17.5); Immature Grans % 0.2; Lymphocytes % 13.3; MCH 32.6 pg (27.0-33.0); MCHC 33.5 % (32.0-36.0); MCV 97 fL (80-95); MPV 8.6 fL (8.0-11.0); Monocytes % 8.5; Platelet Count 194 10^3/uL (130-400); RBC 3.71 10^6/uL (4.36-5.78); RDW-SD 50.2 fL; WBC 5.03 10^3/uL (4.4-10.8)
[2022-08-17 14:53] LABS: ALT 17 U/L (16-63); AST 21 U/L (15-37); Albumin 3.2 g/dL (3.4-5.0); Alkaline Phosphatase 68 U/L (46-116); Anion Gap 4.8 mmol/L (3-11); BUN 11 mg/dL (7-18); Bilirubin, Total 0.9 mg/dL (0.2-1.0); CO2 29.2 mmol/L (21.0-32.0); CREATININE 0.7 mg/dL (0.70-1.30); Calcium 8.9 mg/dL (8.5-10.1); Chloride 102 mmol/L (98-107); Glucose 99 mg/dL (74-106); Magnesium 1.9 mg/dL (1.8-2.4); Potassium 4.1 mmol/L (3.5-5.1); Sodium 136 mmol/L (136-145); Total Protein 6.9 g/dL (6.4-8.2)
[2022-08-17] MEDS: Heparin 500 UNITS/5 ML SYRINGE (15:35)
[2022-08-17 16:38] LABS: Bilirubin Negative (Negative); Blood Negative (Negative); Clarity Clear (Clear); Glucose Negative (Negative); Ketones Negative (Negative); Leukocyte Esterase Negative (Negative); Nitrite Negative (Negative); Urobilinogen 0.2 mg/dL (Up to 0.2)
[2022-08-17 16:43] VITALS: PULSE 85; RESP 20; O2SAT 97
== END 2022-08-17 16:47 | disposition home or self-care (01) ==
PROVIDERS: Emergency Provider Physician Assistant; PCP Nurse Practitioner Family
DX: S01.411A Laceration without foreign body of right cheek and temporomandibular area, initial encounter (principal); S00.03XA Contusion of scalp, initial encounter; S40.812A Abrasion of left upper arm, initial encounter; W19.XXXA Unspecified fall, initial encounter
CPT/HCPCS: 12013; 80053; 90471; 93005; 99284; 70450; 70486; 72125; 81003; 83735; 85025; 93010

== ENCOUNTER → 2022-09-10 12:16 | Outpatient (BNVA) | payer MEDICARE, SELFPAY | PROVIDERS: PCP Nurse Practitioner Family; Visit Provider Psychiatry & Neurology Neurology | DX: G25.0 Essential tremor (principal); Z86.73 Personal history of transient ischemic attack (TIA), and cerebral infarction without residual deficits; Z79.82 Long term (current) use of aspirin; G31.84 Mild cognitive impairment of uncertain or unknown etiology; R26.89 Other abnormalities of gait and mobility; E11.9 Type 2 diabetes mellitus without complications | CPT/HCPCS: 99214 ==

== ENCOUNTER 2022-10-26 01:59 | Outpatient (RCR) | payer MEDICARE, SELFPAY ==
[2022-10-26 09:54] LABS: Abs Immature Grans 0.01 10^3/uL (0.0-0.06); Absolute Basophil Count 0.02 10^3/uL (0.0-0.2); Absolute Eosinophil Count 0.23 10^3/uL (0.0-0.7); Absolute Lymphocyte Count 0.56 10^3/uL (1.2-3.4); Absolute Monocyte Count 0.47 10^3/uL (0.1-0.8); Absolute Neutrophil Count 2.29 10^3/uL (1.2-6.7); Basophils % 0.6; Eosinophils % 6.4; HCT 36.8 % (40.0-50.0); HGB 12.2 g/dL (13.5-17.5); Immature Grans % 0.3; Lymphocytes % 15.6; MCH 31.8 pg (27.0-33.0); MCHC 33.2 % (32.0-36.0); MCV 96 fL (80-95); MPV 8.6 fL (8.0-11.0); Monocytes % 13.1; Platelet Count 201 10^3/uL (130-400); RBC 3.84 10^6/uL (4.36-5.78); RDW 14.6 % (11.8-14.1); RDW-SD 51.3 fL; WBC 3.58 10^3/uL (4.4-10.8)
[2022-10-26] MEDS: Heparin 500 UNITS/5 ML SYRINGE IV (10:01)
[2022-10-26] MEDS: Normal Saline Flush 10 ML SYR IVP (10:01)
[2022-10-26 10:15] LABS: ALT 24 U/L (16-63); AST 23 U/L (15-37); Albumin 3.1 g/dL (3.4-5.0); Alkaline Phosphatase 67 U/L (46-116); Anion Gap 5.2 mmol/L (3-11); BUN 10 mg/dL (7-18); Bilirubin, Total 0.9 mg/dL (0.2-1.0); CO2 28.8 mmol/L (21.0-32.0); CREATININE 0.8 mg/dL (0.70-1.30); Calcium 8.8 mg/dL (8.5-10.1); Chloride 104 mmol/L (98-107); Estimated GFR 86.73 (mL/min/1.73m2); Glucose 112 mg/dL (74-106); Sodium 138 mmol/L (136-145); Total Protein 6.7 g/dL (6.4-8.2)
== END 2022-10-26 23:59 | disposition home or self-care (01) ==
LOC: INF 01:59
PROVIDERS: PCP Nurse Practitioner Family; Visit Provider Internal Medicine Hematology & Oncology
DX: C09.9 Malignant neoplasm of tonsil, unspecified (principal); Z45.2 Encounter for adjustment and management of vascular access device
CPT/HCPCS: 36591; 80053; 85025

== ENCOUNTER 2022-12-28 04:03 | Outpatient (CLI) | payer MEDICARE, SELFPAY ==
[2022-12-28 13:25] LABS: CREATININE 0.9 mg/dL (0.70-1.30)
== END 2022-12-28 04:04 | disposition home or self-care (01) ==
PROVIDERS: PCP Nurse Practitioner Family; Visit Provider Preventive Medicine Undersea and Hyperbaric Medicine
DX: E03.8 Other specified hypothyroidism (principal); C09.9 Malignant neoplasm of tonsil, unspecified
CPT/HCPCS: 36415; 82565; 84443

== ENCOUNTER → 2022-12-30 02:23 | Outpatient (CLI) | payer MEDICARE, SELFPAY ==
--- NOTE | 2022-12-30 | DI.CT_ITS ---
Exam(s) CT NECK CHEST W EXAM: CT NECK CHEST W INDICATION: TONSIL CANCER C09.[address] CHEST PE ABD PELVIS W from 01/24/[address] HEAD CERV SPINE FACIAL WO from 08/17/2022 TECHNIQUE: FINDINGS: CT SOFT TISSUES OF NECK WITH IV CONTRAST: VISUALIZED PARANASAL SINUSES: Unremarkable. NASOPHARYNX: Unremarkable ORODENTAL: Unremarkable. OROPHARYNX: Unremarkable. No masses evident. HYPOPHARYNX: Unremarkable. Valleculae and epiglottis and aryepiglottic folds appear normal. Some ca lcification is noted in the epiglottis VOCAL CORDS: Unremarkable. No masses evident. Subglottic airway appears unremarkable. THYROID GLAND: Unremarkable. Normal size and no obvious nodules. SALIVARY GLANDS: Unremarkable. No significant findings in the parotid and submandibular glands. LYMPH NODES: There is no adenopathy evident in the neck and supraclavicular regions. CT CHEST WITH IV CONTRAST: Lungs: There is a small noncalcified nodule in left lower lobe measuring 5 x 4 mm, not evident on the prior CT scan 01/24/2022. there are no other pulmonary nodules. Some atelectasis in the lung bases is agai n noted. There are no pleural effusions. Mediastinum: There is no hilar nor mediastinal adenopathy. No subcarinal adenopathy. No axillary no r supraclavicular adenopathy. Cardiac: Heart size is normal. No pericardial effusion. The diameter of the ascending thoracic aort a is enlarged, measuring 3.9 cm. No evidence of aortic dissection. Diameter of the mid aortic arch is 2.7 cm. Diameter of the proximal descending thoracic aorta 2.7 cm. Diameter of the mid and dista l descending thoracic aorta 2.5 cm Visualized upper abdomen: No adrenal masses. IMPRESSION: 1. No evidence of abnormal mass nor lymphadenopathy in the soft tissues of the neck. 2. There is a solitary noncalcified nodule in the left lower lobe measuring 5 x 4 mm, not previously present on prior CT scan of 01/24/2022 and therefore requiring appropriate follow-up. Recommend rep eat CT scan in 6 months 3. There is no intrathoracic adenopathy. 4. Ascending thoracic diameter is mildly enlarged, measuring 3.9 cm diameter. RADIATION DOSE DELIVERED: 805.9mGy.cm Total DLP DATA REPOSITORY: All CT scans at this facility are submitted to the National Radiology Data Registry (NRDR) Dose Index Registry (DIR) with the [employer] ([employer]). RADIATION OPTIMIZATION: All CT scans at this facility use at least one of these dose optimization te chniques: automated exposure control; mA and/or kV adjustment per patient size (includes targeted exa ms where dose is matched to clinical indication); or iterative reconstruction.
[2022-12-30] MEDS: Normal Saline - Diluent 50 ML VIAL IJ (14:48)
[2022-12-30] MEDS: Omnipaque 350 MG/ML 500 ML BTL-Imaging package IJ (14:53)
[2022-12-30] MEDS: Normal Saline Flush 10 ML SYR IVP (15:00)
== END ==
PROVIDERS: PCP Nurse Practitioner Family; Visit Provider Preventive Medicine Undersea and Hyperbaric Medicine
DX: R91.8 Other nonspecific abnormal finding of lung field (principal); C09.9 Malignant neoplasm of tonsil, unspecified
CPT/HCPCS: 70491; 71260

== ENCOUNTER → 2023-07-22 03:37 | Outpatient (CLI) | payer MEDICARE, SELFPAY ==
--- NOTE | 2023-07-22 09:08 | DI.CT_ITS ---
Exam(s) CT CHEST WO EXAM: CT CHEST WO CLINICAL HISTORY: TONSIL CA,C09.9,NEW NODULE ON CT,ASSESS FOR PROGRESSION. TECHNIQUE: Multi planar reconstructions were performed. CONTRAST MATERIAL: None COMPARISON: CT CT NECK CHEST W from 12/30/2022 FINDINGS: CHEST: LUNGS: The previously described noncalcified left lower lobe nodule appears unchanged in size, measur ing 5-6 mm. Mild increased markings in the lower lobes are unchanged. There are no new nodules and there are no pleural effusions. No new findings in the trachea and mainstem bronchi. MEDIASTINUM: There is no obvious hilar nor mediastinal adenopathy. Visualized thyroid unremarkable.No obvious axillary adenopathy CARDIAC: Heart size is normal. There is no pericardial effusion.Diameter of the ascending thoracic a jennyfer is again noted be mildly prominent measuring 3.9 cm, unchanged. VISUALIZED UPPER ABDOMEN:No significant adrenal masses. OSSEOUS: Sclerotic density in the anterior aspect of T2 vertebral body appears unchanged. Probably b enign bone island.No fractures.. IMPRESSION: 1. Stable appearance of the solitary 5-6 mm left lower lobe nodule when compared to the prior CT scan performed 12/30/2022. There are no new lung nodules evident. 2. No new infiltrates nor pleural effusions. No intrathoracic adenopathy. RADIATION DOSE DELIVERED: 446.25mGy.cm Total DLP DATA REPOSITORY: All CT scans at this facility are submitted to the National Radiology Data Registry (NRDR) Dose Index Registry (DIR) with the [employer] (ACR). RADIATION OPTIMIZATION: All CT scans at this facility use at least one of these dose optimization te chniques: automated exposure control; mA and/or kV adjustment per patient size (includes targeted exa ms where dose is matched to clinical indication); or iterative reconstruction.
== END ==
PROVIDERS: PCP Nurse Practitioner Family; Visit Provider Preventive Medicine Undersea and Hyperbaric Medicine
DX: C09.0 Malignant neoplasm of tonsillar fossa (principal)
CPT/HCPCS: 71250

== ENCOUNTER 2023-11-15 04:04 | Outpatient (CLI) | payer MEDICARE, SELFPAY ==
[2023-11-15 12:44] LABS: Hemoglobin A1C 5.6 % (<5.7)
[2023-11-15 12:57] LABS: Anion Gap 6.8 mmol/L (3-11); BUN 16 mg/dL (7-18); CO2 30.2 mmol/L (21.0-32.0); CREATININE 0.9 mg/dL (0.70-1.30); Calcium 9.1 mg/dL (8.5-10.1); Calculated LDL 82 mg/dL (<100); Chloride 104 mmol/L (98-107); Cholesterol 146 mg/dL (<200); Estimated GFR 83.18 (mL/min/1.73m2); Glucose 101 mg/dL (74-106); HDL Cholesterol 50 mg/dL (40-60); Sodium 141 mmol/L (136-145); Triglyceride 70 mg/dL (<150)
== END 2023-11-15 04:05 | disposition home or self-care (01) ==
LOC: LOS 04:04
PROVIDERS: PCP Nurse Practitioner Family; Visit Provider Nurse Practitioner Family
DX: M10.9 Gout, unspecified (principal); E78.5 Hyperlipidemia, unspecified; Z00.00 Encounter for general adult medical examination without abnormal findings; R73.03 Prediabetes
CPT/HCPCS: 36415; 80048; 80061; 83036

== ENCOUNTER 2024-09-08 01:40 | Outpatient (CLI) | payer MEDICARE, SELFPAY ==
[2024-09-08 16:15] LABS: T4 8.1 ug/dL (4.7-13.3); TSH 5.07 uIU/mL (0.36-3.74)
[2024-09-08 22:01] LABS: T3,Free 4.3 pg/mL (2.8-5.3)
[2024-09-08 22:51] LABS: Thyroglobulin Antibody <15 U/mL (<=60); Thyroperoxidase Antibody <28 U/mL (<=60)
== END 2024-09-08 01:41 | disposition home or self-care (01) ==
LOC: LBO 01:40
PROVIDERS: PCP Nurse Practitioner Family; Visit Provider Nurse Practitioner Family
DX: R79.89 Other specified abnormal findings of blood chemistry (principal)
CPT/HCPCS: 36415; 86376; 84436; 84443; 84481

== ENCOUNTER 2024-09-19 02:13 | Outpatient (CLI) | payer MEDICARE, SELFPAY ==
--- NOTE | 2024-09-19 06:45 | DI.US_ITS ---
Exam(s) US THYROID EXAM: US THYROID CLINICAL HISTORY: recent elevated T4, hyperthyroid,r79.89. TECHNIQUE: Ultrasound thyroid performed using standard protocol. COMPARISON: CT CT CHEST WO from 07/22/2023 FINDINGS: ISTHMUS: 4 mm RIGHT LOBE: Size: 3.8 x 1.8 x 1.9 cm Echogenicity: Normal. Vascularity: Normal. Nodules: 4 millimeter colloid cyst mid thyroid. LEFT LOBE: Size: 4.2 x 1.8 x 1.6 cm Echogenicity: Normal. Vascularity: Normal. Nodules: None. OTHER FINDINGS: None. IMPRESSION: No suspicious nodules. Normal sized gland. DATA REPOSITORY:
== END 2024-09-19 02:33 ==
LOC: DI 02:13
PROVIDERS: PCP Nurse Practitioner Family; Visit Provider Nurse Practitioner Family
DX: R79.89 Other specified abnormal findings of blood chemistry (principal)
CPT/HCPCS: 76536

== ENCOUNTER 2024-11-15 08:45 | Outpatient (CLI) | payer MEDICARE, SELFPAY ==
[2024-11-15 14:08] LABS: ALT 23 U/L (16-63); AST 18 U/L (15-37); Albumin 3.1 g/dL (3.4-5.0); Alkaline Phosphatase 72 U/L (46-116); Anion Gap 7.4 mmol/L (3-11); BUN 13 mg/dL (7-18); Bilirubin, Total 1.3 mg/dL (0.2-1.0); CO2 31.6 mmol/L (21.0-32.0); Calcium 9.1 mg/dL (8.5-10.1); Calculated LDL 74 mg/dL (<100); Chloride 103 mmol/L (98-107); Cholesterol 131 mg/dL (<200); Estimated GFR 85.65 (mL/min/1.73m2); Glucose 152 mg/dL (74-106); HDL Cholesterol 42 mg/dL (>or=40); Potassium 3.9 mmol/L (3.5-5.1); Sodium 142 mmol/L (136-145); TSH (W/Ref FT4) 6.01 uIU/mL (0.36-3.74); Total Protein 7.1 g/dL (6.4-8.2); Triglyceride 77 mg/dL (<150); Vitamin B12 1013 pg/mL (193-986)
== END 2024-11-15 08:46 | disposition home or self-care (01) ==
LOC: LBO 08:46
PROVIDERS: PCP Nurse Practitioner Family; Visit Provider Nurse Practitioner Family
DX: E53.8 Deficiency of other specified B group vitamins (principal); R79.89 Other specified abnormal findings of blood chemistry; E78.5 Hyperlipidemia, unspecified; R73.03 Prediabetes; C09.9 Malignant neoplasm of tonsil, unspecified
CPT/HCPCS: 36415; 80053; 80061; 82607; 84439; 84443